=== PATIENT | female | born 1960 | race Caucasian/White ===

== ENCOUNTER 2018-01-08 12:10 | Emergency (ER) | payer OTHER, SELFPAY ==
[2018-01-08 12:20] VITALS: BP 154/73; PULSE 71; RESP 18; TEMP 36.4; O2SAT 97; BMI 32.0
--- NOTE | 2018-01-08 12:25 | XR_ITS ---
XR finger RT min 2V CLINICAL INDICATION: Pain following injury ITS.REASON: SMASHED INDEX FINGER ORDERING PHYSICIAN: Rock Hernandez PATIENT AGE: 57 years COMPARISON: None FINDINGS: No bony or joint abnormality. No fracture or dislocation. IMPRESSION: Negative right index finger
--- NOTE | 2018-01-08 12:47 | HMH.EDUTC ---
[facility] [place] Clinical Impression: Fingertip contusion Qualifiers: Encounter type: initial encounter Qualified Code(s): S60.00XA - Contusion of unspecified finger without damage to nail, initial encounter Subungual hematoma of finger of right hand Qualifiers: Encounter type: initial encounter Qualified Code(s): S60.10XA - Contusion of unspecified finger with damage to nail, initial encounter Disposition: Home, Self-Care Condition on Discharge: Good Instructions: DI for Contusion, DI for Subungual Hematoma, How To Perform RICE (Rest, Ice, Compress, Elevate) Additional Instructions: * use as tolerated. If pain, stop. If numbness, tingling, worsening pain or change in color, return immediately. * Rest * ice 15-20 mins 3-4 times a day * splint will help protect finger from further at work but is not necessary otherwise * Elevate as discussed as much as possible to help reduce swelling and therefore, pain * Ibuprofen every 6 hours as needed for pain and inflammation. If you need something more, you can take tylenol every 4 hours as needed as long as your primary care provider has told you it is ok to take both. Referrals: Harpreet Maldonado MD [Primary Care Provider] - (Follow up IMMEDIATELY for new or worsening symptoms, if you decide you want the procedure to allow blood to escape from under nail OR no noticeable improvement over the next 3 days) Time of Disposition: 13:15 Medical Decision Making Vital Signs: 01/08/18 12:20 Temperature 97.5 F L Temperature Source Temporal Artery Scan Pulse Rate [Right Radial] 71 Respiratory Rate 18 Blood Pressure [Right Arm] 154/73 Blood Pressure Mean [Right Arm] 100 02 Sat by Pulse Oximetry 97 Oxygen Delivery Method Room Air Orders (Tests/Meds): ORDERS Category Date Time Status Finger XR right minimum 2 views [XR finger RT min 2V] Exams 01/08/18 12:25 Taken Stat - Radiology Data #1 Image(s): Hand, Finger(s)/Thumb Image Reviewed: Yes I reviewed the patient's radiology image w/the ED provider Preliminary Findings: Normal/NAD Rvwd w/ ADONIS Saldaña MD - Alexi Inquiry Pt receiving controlled substance: No - Reevaluation(s) Time: 13:10 Reevaluation #1: Rvwd xray results. Discussed nail trepination to relieve pressure. Pt declined. [facility] [place] - General Stated complaint: Right Index Finger Pain Ao [id number] Time Seen by Provider: 01/08/18 12:25 Mode of Arrival: Family Vehicle Source of Information: Patient Limitations: No Limitations Description of Symptoms (Recalled from Triage Doc. by RN): PT STATES THAT HER RIGHT INDEX FINGER WAS SMASHED IN A DOOR LAST NIGHT. PT CAN MOVE AND BEND FINGER. HEENT Symptoms (Recalled from RN notes): No Resp Symptoms (Recalled from RN notes): No Skin Symptoms (Recalled from RN notes): No MS Symptoms (Recalled from RN notes): Yes (INJURED RIGHT INDEX FINGER) Functional Status (Recalled from RN notes): NA - History of Present Illness Provider Complaint: c/o pain in tip of right index finger. Wind blew car door closed on finger last night. Immediately iced. Iced several times last night. Woke up with finger swollen and still painful. Iced again and that helped swelling. Finger tip throbbing. Denies limited ROM, N/T or lack of feeling. Worried it could be fractured. - Related Data Home Medications Medication Instructions Recorded Confirmed Atenolol [Atenolol 25mg Tab] 25 mg PO DAILY 01/08/18 01/08/18 Levothyroxine Sodium 100 mg PO DAILY 01/08/18 01/08/18 [Levothyroxine 100mcg (0.1MG) Tab] Ropinirole HCl [Requip 0.25mg 0.25 mg PO DAILY 01/08/18 01/08/18 Tablet] Allergies Allergy/AdvReac Type Severity Reaction Status Date / Time dexamethasone [DEXAMETHASONE] Allergy Unknown Verified 01/08/18 12:27 triamcinolone [From KENALOG] Allergy Unknown Verified 01/08/18 12:27 - Worker's Comp Is this a Worker's Comp case?: No [facility] History I have reviewed the patient's past medical history: Yes Medical Hist
--- NOTE | 2018-01-08 12:51 | ED_ITS ---
[facility] – [place] Clinical Impression: Fingertip contusion Qualifiers: Encounter type: initial encounter Qualified Code(s): S60.00XA - Contusion of unspecified finger without damage to nail, initial encounter Subungual hematoma of finger of right hand Qualifiers: Encounter type: initial encounter Qualified Code(s): S60.10XA - Contusion of unspecified finger with damage to nail, initial encounter Disposition: Home, Self-Care Condition on Discharge: Good Instructions: DI for Contusion, DI for Subungual Hematoma, How To Perform RICE (Rest, Ice, Compress, Elevate) Additional Instructions: * use as tolerated. If pain, stop. If numbness, tingling, worsening pain or change in color, return immediately. * Rest * ice 15-20 mins 3-4 times a day * splint will help protect finger from further at work but is not necessary otherwise * Elevate as discussed as much as possible to help reduce swelling and therefore , pain * Ibuprofen every 6 hours as needed for pain and inflammation. If you need something more, you can take tylenol every 4 hours as needed as long as your primary care provider has told you it is ok to take both. Referrals: Harpreet Maldonado MD [Primary Care Provider] - (Follow up IMMEDIATELY for new or worsening symptoms, if you decide you want the procedure to allow blood to escape from under nail OR no noticeable improvement over the next 3 days) Time of Disposition: 13:15 Medical Decision Making Vital Signs: 01/08/18 12:20 Temperature 97.5 F L Temperature Source Temporal Artery Scan Pulse Rate [Right Radial] 71 Respiratory Rate 18 Blood Pressure [Right Arm] 154/73 Blood Pressure Mean [Right Arm] 100 02 Sat by Pulse Oximetry 97 Oxygen Delivery Method Room Air Orders (Tests/Meds): ORDERS Category Date Time Status Finger XR right minimum 2 views [XR finger RT min 2V] Exams 01/08/18 12:25 Taken Stat - Radiology Data #1 Image(s): Hand, Finger(s)/Thumb Image Reviewed: Yes I reviewed the patient's radiology image w/the ED provider Preliminary Findings: Normal/NAD Rvwd w/ ADONIS Saldaña MD - Alexi Inquiry Pt receiving controlled substance: No - Reevaluation(s) Time: 13:10 Reevaluation #1: Rvwd xray results. Discussed nail trepination to relieve pressure. Pt declined. [facility] [place] HPI - General Stated complaint: Right Index Finger Pain Ao [id number] Time Seen by Provider: 01/08/18 12:25 Mode of Arrival: Family Vehicle Source of Information: Patient Limitations: No Limitations Description of Symptoms (Recalled from Triage Doc. by RN): PT STATES THAT HER RIGHT INDEX FINGER WAS SMASHED IN A DOOR LAST NIGHT. PT CAN MOVE AND BEND FINGER. HEENT Symptoms (Recalled from RN notes): No Resp Symptoms (Recalled from RN notes): No Skin Symptoms (Recalled from RN notes): No MS Symptoms (Recalled from RN notes): Yes (INJURED RIGHT INDEX FINGER) Functional Status (Recalled from RN notes): NA - History of Present Illness Provider Complaint: c/o pain in tip of right index finger. Wind blew car door closed on finger last night. Immediately iced. Iced several times last night. Woke up with finger swollen and still painful. Iced again and that helped swelling. Finger tip throbbing. Denies limited ROM, N/T or lack of feeling. Worried it could be fractured. - Related Data Home Medications Medication Instructions Recorded Confirmed Atenolol [Atenolol 25mg Tab] 25 mg PO DAILY
[2018-01-08 13:17] VITALS: BP 136/77; PULSE 65; RESP 20; TEMP 36.7; O2SAT 99
== END 2018-01-08 13:17 | disposition home or self-care (01) ==
PROVIDERS: Emergency Provider Nurse Practitioner Family; Family Provider Family Medicine; PCP Family Medicine
DX: S60.121A Contusion of right index finger with damage to nail, initial encounter (principal); V49.88XA Car occupant (driver) (passenger) injured in other specified transport accidents, initial encounter; I10 Essential (primary) hypertension; E03.9 Hypothyroidism, unspecified; Z88.8 Allergy status to other drugs, medicaments and biological substances
CPT/HCPCS: 73140; 99202

== ENCOUNTER → 2018-02-19 16:58 | Outpatient (CLI) | payer OTHER, SELFPAY ==
--- NOTE | 2018-02-19 | MM_ITS ---
MM Dig screening mamm BI w/CAD CAD Screening ORDERING PHYSICIAN : Harpreet Maldonado MD PATIENT AGE: 57 years GENDER: Female INDICATION: 57-year-old no hormones no new complaints. Family history. Maternal aunt with breast cancer TECHNIQUE: Standard CC and MLO images were obtained. Axillary cc views both breast as well as CC nipple profile views included R2 CAD reviewed. COMPARISON: Previous mammograms: December FINDINGS: Moderate density breast with no dominant mass nor suspicious calcifications either breast. . No significant new findings either breast is stable architecture. Stable generous benign axillary lymph nodes RIGHT BREAST: A few calcifications right and left breast appear benign. Ongoing annual follow-up suggest LEFT BREAST:No new areas of concern =IMPRESSION: = Stable mammogram with no new areas of concern BI-RADS Category: 2 Benign Finding(s) RECOMMENDED FOLLOW-UP: 1YR - 1 YEAR FOLLOW-UP (A letter has been sent to the patient regarding results of the study.)
== END ==
PROVIDERS: PCP Family Medicine; Visit Provider Family Medicine
DX: Z12.31 Encounter for screening mammogram for malignant neoplasm of breast (principal)
CPT/HCPCS: 77067

== ENCOUNTER → 2018-09-04 15:42 | Outpatient (CLI) | payer OTHER, SELFPAY ==
--- NOTE | 2018-09-04 15:51 | XR_ITS ---
XR wrist LT min 3V HISTORY ITS.REASON: WRIST PAIN ORDERING PHYSICIAN: Desi Finley PATIENT AGE: 58 years Comparison: None FINDINGS: No fracture or dislocation. No lytic change. There is normal mineralization.. The joint spaces are well-preserved. No significant degenerative/arthritic changes. No erosive changes evident.. There is a sclerotic focus involving the capitate which measures 7 mm and may be due to a bone island. Otherwise negative. IMPRESSION: Nonspecific sclerotic focus of the capitate otherwise negative left wrist
--- NOTE | 2018-09-04 15:51 | XR_ITS ---
XR shoulder LT min 2V HISTORY: ITS.REASON: ACUTE PAIN OF LEFT SHOULDER ORDERING PHYSICIAN: Desi Finley PATIENT AGE: 58 years Comparison: FINDINGS: No fracture or dislocation. No lytic or blastic change. There is normal mineralization. The joint spaces are well-preserved. No significant degenerative/arthritic changes. No erosive changes evident. IMPRESSION: Negative, no acute finding
== END ==
PROVIDERS: PCP Family Medicine; Visit Provider Nurse Practitioner
DX: M25.512 Pain in left shoulder (principal); M25.532 Pain in left wrist
CPT/HCPCS: 73030; 73110

== ENCOUNTER → 2018-10-16 15:05 | Outpatient (CLI) | payer OTHER, SELFPAY ==
--- NOTE | 2018-10-16 15:10 | US_ITS ---
US thyroid HISTORY: ITS.REASON: ENLARGED THYROID,HYPOTHYROIDISM ORDERING PHYSICIAN: Harpreet Maldonado MD PATIENT AGE: 58 years Comparison: None FINDINGS: The right lobe is 4 x 1.1 x 1.3 cm. There is heterogeneous echogenicity within the right lobe. Nodular A: 4 mm isoechoic nodule superiorly. Nodule B: Mixed echogenic nodule mid pole region is 7 mm. Nodule C: Hypoechoic nodule 7 mm lower pole Nodule D: 5 x 3 mm hypoechoic nodule lower pole The left lobe is 3.7 x 1.2 x 1.3 cm. Nodule A: Heterogeneous nodule upper pole at 15 x 11 mm. The margins are not well-defined. Nodule B: 9 mm heterogeneous nodule mid polar region IMPRESSION: Heterogeneous echogenicity of the thyroid gland with small bilateral nodules . Consider 6 month follow-up to confirm stability
== END ==
PROVIDERS: PCP Family Medicine; Visit Provider Family Medicine
DX: E03.9 Hypothyroidism, unspecified (principal); E04.9 Nontoxic goiter, unspecified
CPT/HCPCS: 76536

== ENCOUNTER → 2019-02-22 10:44 | Outpatient (CLI) | payer OTHER, SELFPAY ==
--- NOTE | 2019-02-22 10:46 | MM_ITS ---
MM Dig screening mamm BI w/CAD ORDERING PHYSICIAN : Harpreet Maldonado MD PATIENT AGE: 58 years GENDER: Female COMPARISON: September & December 2016 & February 2018 INDICATION: Routine screening mammogram. No hormones. No new complaints. Family history. Maternal aunt with breast cancer TECHNIQUE: Standard CC and MLO images were obtained. R2 CAD reviewed. Additional axillary cc as well as CC nipple profile views bilaterally. FINDINGS: Moderately dense breast pattern bilaterally with only mild asymmetry. Prior films are helpful and supportive stability with no new areas of significant concern. RIGHT BREAST:No new areas significant concern Small focal asymmetric area of density medial right breast cc view appears stable since studies dating back to 2013, and dissipates on the additional cc views of right breast. A questionable subtle small area of nodularity at the deep breast also appears stable LEFT BREAST: No new areas of significant concern Be slightly heterogeneous breast pattern unchanged with parenchymal elements most evident towards upper-outer quadrant =====IMPRESSION: Stable bilateral mammogram... With no new areas of significant concern. Stable mild asymmetry. Bilateral follow-up in one year recommended. BI-RADS Category: 2 Benign Finding(s) RECOMMENDED FOLLOW-UP: 1YR 1 YEAR FOLLOW-UP (A letter has been sent to the patient regarding results of the study.)
== END ==
PROVIDERS: PCP Family Medicine; Visit Provider Family Medicine
DX: Z12.31 Encounter for screening mammogram for malignant neoplasm of breast (principal)
CPT/HCPCS: 77067

== ENCOUNTER → 2019-03-02 09:07 | Outpatient (CLI) | payer OTHER, SELFPAY ==
--- NOTE | 2019-03-02 09:10 | US_ITS ---
US abdomen limited History:Abdominal pain Ordering Physician:Cecy Hawkins Patient Age: 58 years Comparison:None Findings: Pancreas:The pancreas is poorly demonstrated due to overlying bowel gas. Liver:Unremarkable. No obvious mass or abnormal fluid collection. No ductal dilatation Right Kidney:Unremarkable. Normal size and echogenicity. No hydronephrosis Gallbladder:There are small stones present in the gallbladder. No gallbladder wall thickening, pericholecystic fluid, or biliary dilatation. The common bile duct measures 4 mm. IMPRESSION: Cholelithiasis
== END ==
PROVIDERS: PCP Family Medicine; Visit Provider Nurse Practitioner Family
DX: R50.9 Fever, unspecified (principal); R10.9 Unspecified abdominal pain; R11.0 Nausea; K80.20 Calculus of gallbladder without cholecystitis without obstruction
CPT/HCPCS: 76705

== ENCOUNTER → 2019-05-27 15:17 | Outpatient (CLI) | payer OTHER, SELFPAY ==
--- NOTE | 2019-05-27 15:19 | US_ITS ---
US thyroid HISTORY: Follow-up thyroid nodules ITS.REASON: F/U HYPOTHYROIDISM ORDERING PHYSICIAN: Harpreet Maldonado MD PATIENT AGE: 59 years Comparison: 10/16/2018 FINDINGS: The isthmus is thickened at 5 mm. There is diffuse heterogeneous echogenicity of both lobes of the thyroid gland. The right lobe is 4.5 x 1.5 x 1.6 cm with ill-defined areas of nodularity. It is difficult to define a definite discrete nodule on the right. Overall there is not significant change compared to the previous exam. The left lobe is 3.9 x 1.7 x 1.5 cm also showing diffuse heterogeneous echogenicity as before with a multinodular configuration. No new nodules are evident. No suspicious nodules apparent. IMPRESSION: Multinodular goiter unchanged
== END ==
PROVIDERS: PCP Family Medicine; Visit Provider Family Medicine
DX: Z09 Encounter for follow-up examination after completed treatment for conditions other than malignant neoplasm (principal); E03.9 Hypothyroidism, unspecified
CPT/HCPCS: 76536

== ENCOUNTER → 2019-11-18 09:50 | Outpatient (CLI) | payer OTHER, SELFPAY ==
--- NOTE | 2019-11-18 | CA_ITS ---
APPROVED REPORT Exam: Pharmacologic Technologist: Jaylene Jiang Ht: 5 ft 2 in Wt: 180 lbs BSA: 1.83 m2 HR: 78 bpm Rhythm: NSR Indications: SOB Medical History Medications: Atenolol,,,,, Asa,,,,, ReQUIP,,,,, LexOTHYROXINE,,,,, OmeprazLE,,,,, Allergies: Dexamethasone, Triamcinolone Cardiac Risk Factors: HTN, FHX of CAD Stress Test Details Test: LEXISCAN HR Resting HR: 86 bpm Max Heart Rate (APMHR): 162 bpm Max HR Achieved: 135 bpm Target HR (85% APMHR): 137 bpm % of APMHR: 83 Recovery HR: 115 bpm BP Resting BP: 183/76 mmHg Max BP: 196/77 mmHg Recovery BP: 179.0/84.0 mmHg ECG Resting ECG: Sinus rhythm Clinical Exercise duration: 04:01 min Highest Stage Achieved: Exercise capacity: 1.0 METs Stress ECG Conclusion Lexiscan portion completed. Symptoms: SOB, Nausea during infusion which resolved during recovery. Patient had c/o CP in recovery resolved within a few seconds. Patient had a hypertensive response in which nurse practationer Arlette Merino reccomended her to take her BP meds as prescribed. There was the occasional PVC. Less than 1.5mm ST depression Electronically signed by : Tito Hernandez, 11/19/2019 12:34:49
--- NOTE | 2019-11-18 09:55 | CA_ITS ---
APPROVED REPORT EXAM: Comprehensive 2D, Doppler, and color-flow Echocardiogram [employer] Estimator: Mavis Roy CRT Ht: 5 ft 2 in Wt: 180lbs BSA: 1.83 BP: 125/64 mmHg Indications: Chest Pain, Murmur, Obesity, Hypertension/HDD 2D Dimensions LVOT 1.73 cm (M/F) 1.5-2.5 M-Mode Dimensions RVDd 2.80 cm (0.9-2.6) LVDd 5.14 cm (3.5-5.7) LVDs 3.70 cm (3.5-5.7) IVSd 0.76 cm (0.6-1.1) PWd 0.59 cm (0.6-1.1) EF (Teich) 53.90% FS 28.00% EDV (Teich) 126.10 mL ESV (Teich) 58.10 mL LV Diastology E/A Ratio 0.58 Mitral Valve MV A Velocity 70.00 (40-130 cm/s) Left Ventricle Left atrium is mildly enlarged, left ventricle is normal size, mild concentric left ventricular hypertrophy, visually estimated ejection fraction 55% with no regional wall motion abnormality. Grade 1 diastolic dysfunction seen without tissue Doppler evidence of raise left atrial pressure. Right Ventricle Right atrium and right ventricle mildly enlarged with normal contractility. Aortic Valve Aortic valve is minimally thickened and fibrosed. There is no aortic stenosis aortic insufficiency. Mitral Valve Mitral valve is grossly normal, there is mild mitral regurgitation. Tricuspid Valve Tricuspid valve is grossly normal, there is mild tricuspid regurgitation. Tricuspid regurgitation jet velocity is inadequate for calculation of the right ventricular systolic pressure. Pulmonic Valve Pulmonic valve is poorly visualized. Great Vessels Aortic root is normal size. Pericardium No significant pericardial effusion noted. Conclusion 1. Biatrial enlargement, normal left ventricular size, mild concentric left ventricular hypertrophy, visually estimated ejection fraction 55% with no regional wall motion abnormality, grade 1 diastolic dysfunction seen without tissue Doppler evidence of raise left atrial pressure. 2. Mildly enlarged right ventricle with normal contractility. 3. Mild mitral and tricuspid regurgitation. 4. No significant pericardial effusion noted. Electronically signed by : Tito Hernandez, 11/19/2019 13:52:07
--- NOTE | 2019-11-18 09:56 | NM_ITS ---
APPROVED REPORT Exam: Nuclear Stress Test Indication: chest pain, short of breath, fatique Stress Tech: Jaylene YOUNG Tech:Zakia DaltonTRE RT(R)(N) Ht: 5 ft 2 in Wt: 180 lbs Bra Size: 38 C HR: 78 bpm BP: 183/76 mmHg BSA: 1.83 m2 BMI: 32.9 History: chest pain, short of breath, fatique Procedure: Patient received a 0.4 mg of intravenous Lexiscan, resting heart rate 78 bpm, resting blood pressure 183/76 mmHg, with Lexiscan maximum heart rate achived was 134 bpm which is Less than 85 % of the maximum predicted heart rate and blood pressure was 196/77 mmHg. Electrocardiogram Resting electrocardiogram shows sinus rhythm, with Lexiscan there is less than 1.[address] segment depression noted from the baseline EKG. The EKG portion of the Lexiscan Myoview is nondiagnostic. Cardiac Stress and Resting SPECT Images: Cardiac Stress and Resting SPECT images were obtained using technetium 99m Myoview 32.8 mCi stress and 10.55 mCi at rest. Gated SPECT for analysis of segmental wall motion and calculation of the ejection fraction also done. Cardiac stress and resting SPECT images show uniform myocardial activity without segmental perfusion abnormality, computer derived ejection fraction is over 65% with no regional wall motion abnormality, right ventricle is normal size and contractility. Conclusion: 1. The EKG portion of the Lexiscan Myoview is nondiagnostic. 2. No scintigraphic evidence of reversible ischemia seen, computer derived ejection fraction is over 65% with no regional wall motion abnormality, right ventricle is normal size and contractility. 3. Normal Lexiscan Myoview study. Electronically signed by : Tito Hernandez, 11/19/2019 12:38:07
--- NOTE | 2019-11-18 12:58 | HMH.ITSHM ---
Current Home Medications as stated by this patient Shruthi Nelson True or patient services representative. [] atenolol levothyroxin requip omeprazole hydrochlorot asa
== END ==
PROVIDERS: PCP Family Medicine; Visit Provider Family Medicine
DX: I20.8 Other forms of angina pectoris (principal); R01.1 Cardiac murmur, unspecified; E78.00 Pure hypercholesterolemia, unspecified; I10 Essential (primary) hypertension; Z82.49 Family history of ischemic heart disease and other diseases of the circulatory system
CPT/HCPCS: 78452; 93017; 93306; A9502; J2785

== ENCOUNTER → 2020-03-17 08:51 | Outpatient (CLI) | payer OTHER, SELFPAY ==
--- NOTE | 2020-03-17 08:56 | MM_ITS ---
PROCEDURE: MM DIG SCREENING MAMM BI W/CAD DIGITAL BREAST TOMOSYNTHESIS INCLUDED Patient Age:59Y CLINICAL INDICATION: SCREENING no hormones. No new complaints.. Family history. Maternal aunt with breast cancer. COMPARISON: [facility] D[facility] MAMM-SCREEN [facility] from 09/03/2013 [facility] D[facility] MAMM-SCREEN [facility] from 09/30/2014 [facility] D[facility] MAMM-SCREEN [facility] from 12/01/2015 [facility] MAMM-SCREEN [facility] W/CAD from 12/27/2016 [facility] MM Dig screening mamm BI w/CAD from 02/19/2018 [facility] MM Dig screening mamm BI w/CAD from 02/22/2019 TECHNIQUE: Standard CC and MLO images were obtained. R2 CAD reviewed. Bilateral digital breast tomosynthesis included. Additional CC nipple profile views included bilateral FINDINGS: . moderate residual fibroglandular elements of scattered throughout both breast. No significant new findings. No dominant or suspicious mass, no suspicious calcification.. Mild asymmetry appears similar to previous studies. Stable benign calcifications right breast IMPRESSION: Stable bilateral mammogram. No new areas of significant concern moderate breast density. Bilateral follow-up 1 year recommended BI-RAD Category: 2 Benign Finding(s) FOLLOW-UP: 1YR 1 Year Follow-up (A letter has been sent to the patient regarding results of the study.) Dictated by: Connor Condon MD 03/21/2020 09:46 Electronically signed by Connor Condon MD in [place] 03/21/2020 09:46
== END ==
PROVIDERS: PCP Family Medicine; Visit Provider Family Medicine
DX: Z12.31 Encounter for screening mammogram for malignant neoplasm of breast (principal)
CPT/HCPCS: 77063; 77067

== ENCOUNTER 2020-06-12 22:00 | Observation (INO) | payer OTHER, SELFPAY ==
[2020-06-12 21:02] VITALS: BP 170/75; PULSE 76; RESP 18; O2SAT 98; BMI 32.9
--- NOTE | 2020-06-12 21:51 | ECG_ITS ---
APPROVED REPORT Exam: Resting ECG HR:75 bpm ECG Measurements Heart Rate 75 AXES NC 154 P 33 QRSd 86 QRS 30 QT 368 T 57 QTc 410 <Conclusion> Normal sinus rhythm Normal ECG Electronically signed by : Nicholas Garcia, 06/13/2020 13:49:13
--- NOTE | 2020-06-12 22:00 | PC.NURSE ---
NIH scale performed at bedside by MD and nurse. pt was unable to communicate at baseline at this time, pt smile was unequal, drift noted in the left upper extremity and lower extremity and pt complained of numbness sensation in lower extremity. MD and nurse gave pt a NIH score of 5 at this time.
--- NOTE | 2020-06-12 22:00 | PC.NURSE ---
pt arrived via POV at 2200. nurses station called by registration to help a pt out of the car. on initial assessment pt was being assisted into a wheelchair by and holding her chest. pt brought back to room 4. pt was alert and oriented but having difficultly speaking with stridor present. pt exposed for EKG, vitals obtained and blood glucose obtained. 111 at this time.
--- NOTE | 2020-06-12 22:01 | PC.NURSE ---
stroke alert called on pt. pt transported via stretcher by this nurse and DRU [facility]ital
--- NOTE | 2020-06-12 22:04 | PC.NURSE ---
pt arrived to CT scanner
--- NOTE | 2020-06-12 22:15 | PC.NURSE ---
MD at bedside stated he wants to keep pt and doesnt want to give aspirin due to pt having having difficulty speaking. when asked pt about sending pt out to transfer to a higher acuity facility MD stated he wanted to keep pt here.
[2020-06-12 22:25] VITALS: BP 170/76; PULSE 74; RESP 16; O2SAT 93
--- NOTE | 2020-06-12 22:39 | CT_ITS ---
PROCEDURE: CT HEAD/BRAIN WO CON CLINICAL INDICATION: stroke alert Altered mental status, altered level of consciousness, confusion, disorientation, nonresponsive, COMPARISON: CT HEAD/BRAIN WO CON from 09/02/2019 TECHNIQUE: Axial images obtained. All CT scans at the facility use one or more dose reduction, viz: automated exposure control, ma/kV adjustment per patient size (including targeted exams where dose is matched to indication, i.e. head), or iterative reconstruction technique. FINDINGS: No midline shift, mass effect, intracranial hemorrhage, hydrocephalus, or extra-axial fluid collection is evident. The calvarium has an unremarkable appearance. No mastoid effusion. Mucosal thickening involves the maxillary sinuses. IMPRESSION: No acute intracranial finding Dictated by: Yonatan Sneed MD 06/13/2020 06:53 Electronically signed by Yonatan Sneed MD in [place] 06/13/2020 06:53
[2020-06-12 22:43] LABS: Basophils # 0.1 K/mm3 (0-0.2); Basophils % 0.6 % (0.1-2.0); Eosinophils # 0.4 K/mm3 (0.0-0.4); Hematocrit 34.6 % (37.0-47.0); Hemoglobin 11.9 g/dL (12.2-16.2); Lymphocytes # 2.6 K/mm3 (0.7-4.5); Lymphocytes % 26.7 % (10-50); Mean Corpuscular HGB Conc 34.5 g/dL (31.8-35.4); Mean Corpuscular Hemoglobin 32.3 pg (27.0-31.2); Mean Corpuscular Volume 93.6 fl (81-99); Mean Platelet Volume 7.2 fl (7.4-10.4); Monocytes # 0.6 K/mm3 (0.1-1.0); Monocytes % 6.2 % (1.7-9.3); Neutrophils # 6.1 K/mm3 (1.8-7.8); Neutrophils % 62.5 % (37.0-80.0); Platelet Count 399 K/mm3 (142-424); Red Blood Count 3.69 M/mm3 (4.20-5.40); Red Cell Distribution Width 13.7 % (11.5-17.5); White Blood Count 9.7 K/mm3 (4.8-10.8)
--- NOTE | 2020-06-12 22:43 | XR_ITS ---
PROCEDURE: XR CHEST PORTABLE CLINICAL HISTORY: chest pain COMPARISON: XR CHEST 2V from 11/08/2019 FINDINGS: There is mild cardiomegaly without failure. Nodularity is noted in the right upper lobe overlying the 2nd rib anteriorly in the left lung base. No acute bony abnormalities. IMPRESSION: Cardiomegaly with possible right upper and left lower lobe nodules. Consider upright PA and lateral chest for further evaluation Dictated by: Yonatan Sneed MD 06/12/2020 23:11 Electronically signed by Yonatan Sneed MD in [place] 06/12/2020 23:11
[2020-06-12 22:55] VITALS: BP 170/78; PULSE 75; RESP 16; O2SAT 96
[2020-06-12 22:55] LABS: Anion Gap 12.8 mEq/L (5-15); Blood Urea Nitrogen 17 mg/dl (7-17); Calcium 9.3 mg/dl (8.4-10.2); Carbon Dioxide 28 mmol/L (22.0-30.0); Chloride 98 mmol/L (98-107); Creatinine Clearance Estimated 87 mL/min (50-200); Estimated Glomerular Filt Rate 64 ml/min (>60); GFR (African American) 78 ML/MIN (>60); Glucose 112 mg/dl (74-100); Potassium 3.8 mmoL/L (3.5-5.1); Sodium 135 mmol/L (136-145)
--- NOTE | 2020-06-12 23:01 | PC.NURSE ---
reassessed pt condition at this time. pt still has the gazed look in her eyes. pt no longer has stidor when breathing and is now breathing at a regular rate and normal depth. pt stated she felt a little better at this time but is still not back to baseline according to her . pt is still slow to move and speak and doesnt consistently follow you with her gaze when communicating.
[2020-06-12 23:02] LABS: Albumin/Globulin Ratio 1.3 (1.1-1.8); Alkaline Phosphatase 86 U/L (38-126); Aspartate Amino Transferase 26 U/L (14-36); Bilirubin,Total 0.4 mg/dl (0.2-1.3); Globulin 3.2 g/dL (1.3-3.2); Total Protein,Serum 7.2 g/dl (6.3-8.2); Troponin I < 0.01 ng/ml (0.00-0.034)
[2020-06-12 23:07] LABS: Alanine Aminotransferase 14 U/L (12-78)
[2020-06-12 23:07] LABS: Microscopic, Urine URINE MICROSCOPIC (MICROSCOPIC)
[2020-06-12 23:10] LABS: Appearance,Urine CLEAR (Clear); Bilirubin,Urine Negative (Negative); Blood, Urine TRACE-I (Negative); Color,Urine YELLOW (Yellow); Glucose,Urine (UA) Negative (Negative); Ketones,Urine Negative (Negative); Leukocyte Esterase,Urine Negative (Negative); Nitrate,Urine Negative (Negative); PH,Urine 7.5 (5.0-8.5); Protein,Urine Negative (Negative); Urobilinogen,Urine 0.2 EU/dl (0.2)
[2020-06-12 23:15] LABS: Bacteria,Urine Trace /lpf; Squamous Epithelial Cell,Urine Occasional #/hpf (0-5); WBC,Urine Occasional #/hpf (0-3)
[2020-06-12 23:22] LABS: Barbiturates Screen,Urine Negative ng/ml (<200); Benzodiazepines Screen,Urine Negative ng/ml (<200)
[2020-06-12 23:23] LABS: Amphetamine/Metha Screen,Urine Negative ng/ml (<1000)
[2020-06-12 23:24] LABS: Cannabinoid Screen,Urine Negative ng/ml (<50); Methadone Screen,Urine Negative ng/ml (<300)
[2020-06-12 23:25] VITALS: BP 150/51; PULSE 73; RESP 15; O2SAT 94
[2020-06-12 23:25] LABS: Cocaine Screen,Urine Negative ng/ml (<300); Opiate Screen,Urine Negative ng/ml (<300)
[2020-06-12 23:26] LABS: Phencyclidine Screen,Urine Negative ng/ml (<25)
[2020-06-13] VITALS (29 sets, daily range): BP systolic 116–169; BP diastolic 47–76; PULSE 50–80; RESP 12–18; TEMP 36.5–36.9; O2SAT 93–100; BMI 32.9; BMI 33.1
--- NOTE | 2020-06-13 | IR_ITS ---
APPROVED REPORT Patient Location: Inpatient PROCEDURES Left heart catheterization Left ventriculogram Selective coronary angiogram Drug-eluting stent deployment to the proximal LAD Drug-eluting stent deployment to the ostial proximal left main artery INDICATION Coronary artery disease, Unstable angina, Informed consent was obtained prior to the procedure. COMPLICATIONS NONE Estimated Blood Loss: LESS THAN 10 ML TECHNIQUE One percent lidocaine used to anesthetize the right anterior aspect of the wrist. The right radial artery was accessed via the Seldinger technique. A 6 [place]an sheath was placed in the right radial artery. 2.5 mg of verapamil, 800 mcg of nitroglycerin, 1mg Lidocaine and 5000 U Heparin were given through the arterial sheath. The trap catheter was also used to perform right coronary artery selective coronary angiography. A 6 [place] JL 3 guide catheter was used to intubate the left main artery due to the short aorta. This catheter entered the ventricle therefore left ventriculogram was performed as well as left heart catheterization with a JL 3 guide catheter. The catheter was pulled out of the left ventricle and into the left main artery where there was immediate dampening upon entry. Coronary angiography was performed which demonstrated a severe proximal LAD stenosis. Therapeutic heparin was administered giving an ACT of 360 seconds. A Choice PT extra-support wire was placed distally in the LAD and a 2.5 x 26 mm resolute pat stent was placed in the proximal LAD deployed at 16 nadir. This reduced the stenosis to 0%. There was significant dampening and repeat angiography demonstrated a severe ostial stenosis that appeared to be 50%. More importantly a 6 [place]an guide catheter caused significant obturation and profound EKG abnormalities will present. Because of this a 3 mm x 12 mm resolute pat stent was deployed at 24 nadir in the ostial proximal left main artery. The balloon was brought back into the left coronary cusp into the proximal ostial portion of the stent and then postdilated at 24 nadir. This allowed the guide catheter to receipt back into the left main artery with no dampening of pressure. Patient's angina pectoris resolved and the waveform normalized. Repeat angiography demonstrated spasm of the ramus intermedius which responded well to nitroglycerin. MIR-3 flow was present down the left main artery LAD ramus intermedius and circumflex artery before and after the procedure. At the end of the procedure the apparatus was removed the sheath was removed good hemostasis was achieved using TR banding patient was transferred to the postop holding area in stable condition ANGIOGRAPHIC RESULTS The left main artery Has an ostial 50% stenosis The left anterior descending artery Has a severe proximal greater than 70% stenosis The circumflex artery Gives rise to a moderate size ramus intermedius which has mild proximal 10 to 20% stenosis. The circumflex artery itself has mild luminal irregularities approximately 10% severity The right coronary artery Is a dominant vessel and has proximal to mid vessel 20 to 30% stenoses as well as a 20% stenosis in the proximal large posterior lateral branch The PINTO ventriculogram reveals Normal 65% The left ventricular end-diastolic pressure 15 mmHg IMPRESSION Coronary artery disease as described above Successful stenting of the ostial left main artery severe disease reduced to 0% with one drug-eluting stent Successful stenting of the proximal LAD severe disease reduced to 0% with one drug-eluting stent Normal ejection fraction Mildly elevated LVEDP PLAN 1. Brilinta 90 mg twice daily plus aspirin 81 mg daily 2. LDL less than 55 3.
--- NOTE | 2020-06-13 01:50 | PC.NURSE ---
triage time changed to 2201 but unable to edit time in entry. original vitals obtained at 2201
[2020-06-13 02:43] LABS: Troponin I < 0.01 ng/ml (0.00-0.034)
--- NOTE | 2020-06-13 03:11 | HMH.EDCP ---
ED Disposition Clinical Impression: Atypical chest pain Disposition: Admitted as Observation Condition on Discharge: Good Instructions: DI for Atypical Chest Pain Additional Instructions: Spoke to Dr. Zazueta for admission for this patient Referrals: Harpreet Maldonado MD [Primary Care Provider] - - Critical Care Critical Care Time: No Attestation: On 06/12/20, the high probability of a clinically significant, sudden or life threatening deterioration of the following system(s) required my full and direct attention, intervention and personal management. The time I documented below is in addition to time spent performing reported procedures but includes the following listed in this critical care notation. Medical Decision Making - Medical Records Medical records reviewed: Yes: I reviewed the patient's medical records. - Alexi Inquiry Pt receiving controlled substance: No Vital Signs: 06/12/20 21:02 06/12/20 22:25 06/12/20 22:55 Pulse Rate [Radial] 76 74 75 Respiratory Rate 18 16 16 Blood Pressure [Right Arm] 170/75 H 170/76 H 170/78 H Blood Pressure Mean [Right Arm] 106 107 108 Blood Pressure Source [Right Arm] Automatic Cuff Automatic Cuff Automatic Cuff Blood Pressure Position [Right Arm] Sitting Sitting Sitting 02 Sat by Pulse Oximetry 98 93 L 96 Oxygen Delivery Method Room Air Room Air 06/12/20 23:25 06/13/20 00:00 06/13/20 00:30 Pulse Rate [Radial] 73 70 72 Respiratory Rate 15 15 16 Blood Pressure [Right Arm] 150/51 H 135/55 L 131/58 L Blood Pressure Mean [Right Arm] 84 81 82 Blood Pressure Source [Right Arm] Automatic Cuff Automatic Cuff Automatic Cuff Blood Pressure Position [Right Arm] Sitting Sitting Sitting 02 Sat by Pulse Oximetry 94 L 93 L 93 L Oxygen Delivery Method Room Air Room Air 06/13/20 01:00 06/13/20 01:30 06/13/20 02:00 Pulse Rate [Radial] 69 64 64 Respiratory Rate 15 15 16 Blood Pressure [Right Arm] 127/56 L 129/53 L 124/52 L Blood Pressure Mean [Right Arm] 79 78 76 Blood Pressure Source [Right Arm] Automatic Cuff Automatic Cuff Automatic Cuff Blood Pressure Position [Right Arm] Sitting Sitting Sitting 02 Sat by Pulse Oximetry 93 L 94 L 95 Oxygen Delivery Method Room Air Room Air - Lab Data Lab results reviewed: Yes: I reviewed the patient's lab results. Lab Results 06/12/20 22:03: Urine Color Yellow, Urine Appearance Clear, Urine pH 7.5, Ur Specific [place] 1.010, Urine Protein Negative, Urine Glucose (UA) Negative, Urine Ketones Negative, Urine Blood Trace-i, Urine Nitrate Negative, Urine Bilirubin Negative, Urine Urobilinogen 0.2, Ur Leukocyte Esterase Negative, Urine WBC Occasional, Ur Squamous Epith Cells Occasional, Urine Bacteria Trace 06/12/20 22:03: Urine Opiates Screen Negative, Urine Methadone Screen Negative, Ur Barbituates Screen Negative, Ur Phencyclidine Scrn Negative, Ur Amphetamines Screen Negative, U Benzodiazepines Scrn Negative, Urine Cocaine Screen Negative, U Marijuana (THC) Screen Negative 06/12/20 22:25: WBC 9.7, RBC 3.69 L, Hgb 11.9 L, Hct 34.6 L, MCV 93.6, MCH 32.3 H, MCHC 34.5, RDW 13.7, Plt Count 399, MPV 7.2 L, Neut % (Auto) 62.5, Lymph % (Auto) 26.7, [place] % (Auto) 6.2, Eos % (Auto) 4.0, Baso % (Auto) 0.6, Neut # (Auto) 6.1, Lymph # (Auto) 2.6, [place] # (Auto) 0.6, Eos # (Auto) 0.4, Baso # (Auto) 0.1 06/12/20 22:25: Sodium 135 L, Potassium 3.8, Chloride 98, Carbon Dioxide 28, Anion Gap 12.8, BUN 17, Creatinine 0.90, Estimated Creat Clear 87, Estimated GFR 64, Est GFR ( Amer) 78, Glucose 112 H, Calcium 9.3, Total Bilirubin 0.4, AST 26, ALT 14, Alkaline Phosphatase 86, Troponin I < 0.01, Total Protein 7.2, Albumin 4.0, Globulin 3.2, Albumin/Globulin Ratio 1.3 06/13/20 02:05: Troponin I < 0.01 Result diagrams: 06/12/20 22:25 06/12/20 22:25 Orders (Tests/Meds): ORDERS Category Date Time Status CT head/brain wo con Stat Cat Scan 06/12/20 22:39 Taken Troponin I Q3H Lab 06/13/20 04:45 Ordered - Radiology Data #1 Image(s)
--- NOTE | 2020-06-13 04:01 | PC.NURSE ---
attempted to call report to [facility] unable to finish report due to code 500 brought in by EMS
--- NOTE | 2020-06-13 04:40 | PC.NURSE ---
called report to DR[facility] S[facility]
--- NOTE | 2020-06-13 04:48 | PC.NURSE ---
PT ARRIVED TO THE FLOOR VIA STRETCHER FROM ED AT 0448.
[2020-06-13 05:35] LABS: Basophils % 0.4 % (0.1-2.0); Eosinophils # 0.4 K/mm3 (0.0-0.4); Eosinophils % 4.5 % (0.1-12.0); Hematocrit 32.3 % (37.0-47.0); Hemoglobin 11.2 g/dL (12.2-16.2); Lymphocytes # 2.5 K/mm3 (0.7-4.5); Lymphocytes % 26.9 % (10-50); Mean Corpuscular HGB Conc 34.8 g/dL (31.8-35.4); Mean Corpuscular Hemoglobin 31.8 pg (27.0-31.2); Mean Corpuscular Volume 91.5 fl (81-99); Mean Platelet Volume 7.4 fl (7.4-10.4); Monocytes # 0.6 K/mm3 (0.1-1.0); Monocytes % 6.6 % (1.7-9.3); Neutrophils # 5.8 K/mm3 (1.8-7.8); Neutrophils % 61.7 % (37.0-80.0); Platelet Count 360 K/mm3 (142-424); Red Blood Count 3.53 M/mm3 (4.20-5.40); Red Cell Distribution Width 13.9 % (11.5-17.5); White Blood Count 9.4 K/mm3 (4.8-10.8)
--- NOTE | 2020-06-13 05:41 | PC.NURSE ---
Pt reports that she takes a medication for HTN that is not listed in her list of home meds, but she cannot remember the name of it.
[2020-06-13 05:43] LABS: Chloride 102 mmol/L (98-107); Sodium 138 mmol/L (136-145)
[2020-06-13 05:44] LABS: Potassium 3.6 mmoL/L (3.5-5.1)
[2020-06-13 05:46] LABS: Alanine Aminotransferase 12 U/L (12-78); Albumin Level 3.4 g/dl (3.5-5.0); Albumin/Globulin Ratio 1.3 (1.1-1.8); Alkaline Phosphatase 71 U/L (38-126); Anion Gap 12.6 mEq/L (5-15); Aspartate Amino Transferase 17 U/L (14-36); Bilirubin,Total 0.3 mg/dl (0.2-1.3); Blood Urea Nitrogen 21 mg/dl (7-17); Carbon Dioxide 27 mmol/L (22.0-30.0); Creatinine Clearance Estimated 112 mL/min (50-200); Estimated Glomerular Filt Rate 86 ml/min (>60); GFR (African American) 104 ML/MIN (>60); Globulin 2.6 g/dL (1.3-3.2)
[2020-06-13 05:47] LABS: Calcium 8.9 mg/dl (8.4-10.2); Glucose 122 mg/dl (74-100)
[2020-06-13 05:53] LABS: Troponin I < 0.01 ng/ml (0.00-0.034)
--- NOTE | 2020-06-13 05:58 | PC.NURSE ---
Moris WALTERS NOTIFIED OF CONSULTED.
--- NOTE | 2020-06-13 07:12 | HMH.CNCARD ---
History of Present Illness Consult date: 06/13/20 Requesting physician: Harpreet Maldonado Consult reason: chest pain Chief complaint: chest pain Additional Medical History:: 1. HTN 2. Chest pain A. Echo, 11/2019, 1. Biatrial enlargement, normal left ventricular size, mild concentric left ventricular hypertrophy, visually estimated ejection fraction 55% with no regional wall motion abnormality, grade 1 diastolic dysfunction seen without tissue Doppler evidence of raise left atrial pressure. 2. Mildly enlarged right ventricle with normal contractility. 3. Mild mitral and tricuspid regurgitation. 4. No significant pericardial effusion noted. B. Lexiscan myoview, 11/2019, No ischemia with LVEF of 65% 3. Hypothyroidism, on replacement 4. History of syncope A. positive Tilt table test, 2015 with near syncope, elevated HR of 145 bpm with drop in systolic BP into the low 60's mm Hg B. MRI of head, 2015, negative for acute process 5. Family history of heart disease in her father and brother History of present illness: 60-year-old white female with history of hypertension hypothyroidism presented to the emergency department by private vehicle for evaluation of chest pain that began last evening around 9 PM. Patient was getting ready for bed when she developed sensation of chest tightness without radiation. Symptoms continued for more than 30 minutes and patient's encouraged her to come to the emergency department for evaluation. She was given 2 baby aspirin in route to the hospital without significant improvement. Upon arrival to the ER patient was noted to have an unusual gaze and slow to respond, therefore stroke alert was called. Patient did have a CT of the head that showed no acute process. EKG showed sinus rhythm with no acute ST segment changes. After returning from the CT scanner the patient's responses improved and evaluation by the ER physician did not support a diagnosis of acute stroke. Initial troponin was normal but due to the patient's complaint of chest pain tightness she was kept overnight for observation. Serial troponins have returned normal x3. Patient continues to complain of chest tightness rated as a 3 out of 10 this morning with last night being a 10 out of 10. Cardiology consulted for evaluation and recommendations. [facility] History Medical History: Reports:: Hypertension Denies:: Cancer, Diabetes Mellitus Type 1, Diabetes Mellitus Type 2, MRSA *Have you ever received a pneumonia vaccine?: No *Have you received a flu vaccine this season?: Yes Other Medical History: Reports: Hypothyroidism, Other Other Surgeries: Yes: , Hysterectomy-Partial, Other Amputation: No Fractures: No - *Social History Smoking Status: Never smoker Alcohol Intake: never *Occupational Status:: employed Housing: house Household Members: spouse *Travel in the last 8 weeks: None Family Hx:: Non-contributory Meds Home Medications Medication Instructions Recorded Confirmed Type Levothyroxine Sodium 100 mg PO DAILY 01/08/18 06/13/20 History [Levothyroxine 100mcg (0.1MG) Tab] Ropinirole HCl [Requip 0.25mg 0.25 mg PO DAILY 01/08/18 06/13/20 History Tablet] atenoloL [Atenolol 25mg Tab] 50 mg PO DAILY 01/08/18 06/13/20 History Omeprazole 20 mg PO DAILY 01/20/20 06/13/20 History hydroCHLOROthiazide [HCTZ 25mg 25 mg PO DAILY 01/20/20 06/13/20 History tab] Allergies Allergy/AdvReac Type Severity Reaction Status Date / Time dexamethasone [DEXAMETHASONE] Allergy Unknown Verified 12/28/18 10:48 triamcinolone [From KENALOG] Allergy Unknown Verified 12/28/18 10:48 Review of Systems - Review of Systems Review of systems:: pertinent systems reviewed and negative unless documented below - *Cardiovascular Reports chest pain, Denies shortness of breath - *Respiratory Denies shortness of breath - *Gastrointestinal Denies loose stools, Denies nausea, Denies vomiting - *Genitourinar
--- NOTE | 2020-06-13 07:22 | HMH.HPDC ---
General - General Admission date:: 06/13/20 Discharge date: 06/14/20 *Admission Date: 06/13/20 *Chief complaint: Chest pain *History of present illness: 60-year-old female with hypertension presented to the emergency department with chest pain. Patient's chest pain began around 9 PM yesterday and was located in the center of the chest and parasternal area. Pain was nonradiating. Pain was most notable with movement. Patient denies symptoms of heartburn. Patient had spent the day yesterday with her celebrating her anniversary at [facility]. Patient initially tried to sleep the pain away but when pain did not improve she ultimately presented to the emergency department early this morning. Pain decreased in intensity and patient was admitted for rule out of MS and cardiology consultation. At present the patient reports persistence of her chest pain [facility] History I have reviewed the patient's past medical history: Yes Medical History: Reports:: Hypertension Denies:: Cancer, Diabetes Mellitus Type 1, Diabetes Mellitus Type 2, MRSA *Have you ever received a pneumonia vaccine?: No *Have you received a flu vaccine this season?: Yes Other Medical History: Reports: Hypothyroidism, Other Other Surgeries: Yes: , Hysterectomy-Partial, Other Amputation: No Fractures: No - *Social History Smoking Status: Never smoker Alcohol Intake: never *Occupational Status:: employed Housing: house Household Members: spouse *Travel in the last 8 weeks: None Family Hx:: Non-contributory Review of Systems - Constitutional Denies body ache(s), Denies chills - *Cardiovascular Reports chest pain, Reports chest pain at rest, Reports chest pain with activity - *Respiratory Denies change in phlegm color, Denies chest congestion, Denies cough, Denies shortness of breath - *Gastrointestinal Denies abdominal pain, Denies belching - *Genitourinary Denies abnormal periods - *Musculoskeletal Denies abnormal walking Exam Vital signs and Labs for Last 24 Hours: Temp Pulse Resp BP Pulse Ox 97.7 F 63 17 141/70 H 98 06/13/20 07:17 06/13/20 07:17 06/13/20 07:17 06/13/20 07:17 06/13/20 07:17 Laboratory Results - last 24 hr 06/12/20 22:03: Urine Color Yellow, Urine Appearance Clear, Urine pH 7.5, Ur Specific [place] 1.010, Urine Protein Negative, Urine Glucose (UA) Negative, Urine Ketones Negative, Urine Blood Trace-i, Urine Nitrate Negative, Urine Bilirubin Negative, Urine Urobilinogen 0.2, Ur Leukocyte Esterase Negative, Urine WBC Occasional, Ur Squamous Epith Cells Occasional, Urine Bacteria Trace 06/12/20 22:03: Urine Opiates Screen Negative, Urine Methadone Screen Negative, Ur Barbituates Screen Negative, Ur Phencyclidine Scrn Negative, Ur Amphetamines Screen Negative, U Benzodiazepines Scrn Negative, Urine Cocaine Screen Negative, U Marijuana (THC) Screen Negative 06/12/20 22:25: WBC 9.7, RBC 3.69 L, Hgb 11.9 L, Hct 34.6 L, MCV 93.6, MCH 32.3 H, MCHC 34.5, RDW 13.7, Plt Count 399, MPV 7.2 L, Neut % (Auto) 62.5, Lymph % (Auto) 26.7, [place] % (Auto) 6.2, Eos % (Auto) 4.0, Baso % (Auto) 0.6, Neut # (Auto) 6.1, Lymph # (Auto) 2.6, [place] # (Auto) 0.6, Eos # (Auto) 0.4, Baso # (Auto) 0.1 06/12/20 22:25: Sodium 135 L, Potassium 3.8, Chloride 98, Carbon Dioxide 28, Anion Gap 12.8, BUN 17, Creatinine 0.90, Estimated Creat Clear 87, Estimated GFR 64, Est GFR ( Amer) 78, Glucose 112 H, Calcium 9.3, Total Bilirubin 0.4, AST 26, ALT 14, Alkaline Phosphatase 86, Troponin I < 0.01, Total Protein 7.2, Albumin 4.0, Globulin 3.2, Albumin/Globulin Ratio 1.3 06/13/20 02:05: Troponin I < 0.01 06/13/20 05:20: Troponin I < 0.01 06/13/20 05:20: WBC 9.4, RBC 3.53 L, Hgb 11.2 L, Hct 32.3 L, MCV 91.5, MCH 31.8 H, MCHC 34.8, RDW 13.9, Plt Count 360, MPV 7.4, Neut % (Auto) 61.7, Lymph % (Auto) 26.9, [place] % (Auto) 6.6, Eos % (Auto) 4.5, Baso % (Auto) 0.4, Neut # (Auto) 5.8, Lymph # (Auto) 2.5, [place] # (Auto) 0.6, Eos # (Auto) 0.4, Baso # (Auto) 0.0
--- NOTE | 2020-06-13 07:43 | HMH.PHAVTE ---
[facility] Pharmacy VTE Monitoring - Patient Demographics Admission date: 06/13/20 Report Date: 06/13/20 Time: 07:43 Allergies/Adverse Reactions: Patient Allergies dexamethasone [DEXAMETHASONE] Allergy (Unknown, Verified 12/28/18 10:48) triamcinolone [From KENALOG] Allergy (Unknown, Verified 12/28/18 10:48) Height: 1.57 m Weight: 81.647 kg Patient Problems: Current Active Problems Atypical chest pain (Acute) Hypertension (Acute) Hypothyroidism (Acute) History of syncope (Acute) - VTE Risk Labs: VTE Related Lab Results Hgb 11.2 g/dL (12.2-16.2) L 06/13/20 05:20 Hct 32.3 % (37.0-47.0) L 06/13/20 05:20 Plt Count 360 K/mm3 (142-424) 06/13/20 05:20 BUN 21 mg/dl (7-17) H 06/13/20 05:20 Creatinine 0.70 mg/dl (0.52-1.04) D 06/13/20 05:20 Estimated Creat Clear 112 mL/min (50-200) 06/13/20 05:20 VTE Score: 2 Clinical Trial Participant: No - Prophylaxis VTE Prophylaxis Ordered?: Yes Types of VTE Prophylaxis: TEDS Knee High
--- NOTE | 2020-06-13 07:56 | HMH.PHAINT ---
HOME MEDICATION RECONCILIATION COMPLETED USING LIST FROM HOME PHARMACY
--- NOTE | 2020-06-13 14:04 | PC.NURSE ---
CONTACTED DR SHUKLA DUE TO DOYLE CATH PLACED IN ER. AT THIS TIME DOYLE WILL BE REMOVED
[2020-06-13 14:07] LABS: CATHL Activated Clotting Time 368 SEC (74-125)
--- NOTE | 2020-06-13 17:25 | PC.NURSE ---
PATIENT RETURNED TO FLOOR FROM HEART CATH AT 1400. TOLERATED PROCEDURE WELL. REMOVED DOYLE CATH AND PATIENT HAS BEEN UP TO VOID SINCE. BEGAN REMOVING AIR FROM RADIAL BAND AT 1530 1530 REMOVED 2 ML AIR 10 ML REMAINING 1545 REMOVED 2 ML AIR 8 ML REMAINING 1600 REMOVED 2 ML AIR 6 ML REMAINING 1615 REMOVED 2 ML AIR 4 ML REMAINING 1630 REMOVED 2 ML AIR 2 ML REMAINING 1645 REMOVED 2 ML AIR 0 ML REMAINING 1700 REMOVED RADIAL BAND AND REPLACED WITH TELFA/TEGADERM 1735 PATIENT CALLED OUT AND REPORTED BLEEDING. THERE IS A SMALL SHADOW OF BLOOD ON THE DRESSING. I APPLIED SAND BAG AND WILL RE-EVALUATE
--- NOTE | 2020-06-13 18:43 | PC.NURSE ---
ENRIQUE REMOVED NO CHANGE TO BLOOD SHADOW. MARKED WITH PERMANENT MARKER. WILL INFORM ONCOMING NURSE
[2020-06-14] VITALS (8 sets, daily range): BP systolic 108–147; BP diastolic 51–62; PULSE 61–73; RESP 14–17; TEMP 36.7–36.9; O2SAT 95–99; BMI 34.4
[2020-06-14 06:24] LABS: Basophils % 0.3 % (0.1-2.0); Eosinophils # 0.2 K/mm3 (0.0-0.4); Eosinophils % 2.7 % (0.1-12.0); Hematocrit 33.2 % (37.0-47.0); Hemoglobin 11.6 g/dL (12.2-16.2); Lymphocytes # 2.1 K/mm3 (0.7-4.5); Lymphocytes % 23.5 % (10-50); Mean Corpuscular HGB Conc 34.8 g/dL (31.8-35.4); Mean Corpuscular Hemoglobin 31.9 pg (27.0-31.2); Mean Corpuscular Volume 91.7 fl (81-99); Mean Platelet Volume 7.4 fl (7.4-10.4); Monocytes # 0.5 K/mm3 (0.1-1.0); Monocytes % 5.1 % (1.7-9.3); Neutrophils # 6.1 K/mm3 (1.8-7.8); Neutrophils % 68.4 % (37.0-80.0); Platelet Count 364 K/mm3 (142-424); Red Blood Count 3.63 M/mm3 (4.20-5.40); Red Cell Distribution Width 13.6 % (11.5-17.5); White Blood Count 8.8 K/mm3 (4.8-10.8)
[2020-06-14 06:28] LABS: Chloride 100 mmol/L (98-107); Potassium 3.7 mmoL/L (3.5-5.1); Sodium 136 mmol/L (136-145)
[2020-06-14 06:31] LABS: Anion Gap 10.7 mEq/L (5-15); Blood Urea Nitrogen 16 mg/dl (7-17); Carbon Dioxide 29 mmol/L (22.0-30.0); Creatinine Clearance Estimated 116 mL/min (50-200); Estimated Glomerular Filt Rate 86 ml/min (>60); GFR (African American) 104 ML/MIN (>60); Glucose 122 mg/dl (74-100)
--- NOTE | 2020-06-14 07:04 | HMH.DCSUM ---
General - General Admission date:: 06/13/20 Discharge date: 06/14/20 HPI HPI: 60-year-old female with hypertension presented to the emergency department with chest pain. Patient's chest pain began around 9 PM yesterday and was located in the center of the chest and parasternal area. Pain was nonradiating. Pain was most notable with movement. Patient denies symptoms of heartburn. Patient had spent the day yesterday with her celebrating her anniversary at [facility]. Patient initially tried to sleep the pain away but when pain did not improve she ultimately presented to the emergency department early this morning. Pain decreased in intensity and patient was admitted for rule out of MT and cardiology consultation. At present the patient reports persistence of her chest pain Hospital Course Hospital Course: Patient was admitted and ruled out for myocardial infarction with serial enzymes. Cardiology was consulted. Due to persistent nature of patient's chest pain it was decided that left heart cath would proceed. Patient underwent left heart catheterization on with findings as follows: ANGIOGRAPHIC RESULTS The left main artery Has an ostial 50% stenosis The left anterior descending artery Has a severe proximal greater than 70% stenosis The circumflex artery Gives rise to a moderate size ramus intermedius which has mild proximal 10 to 20% stenosis. The circumflex artery itself has mild luminal irregularities approximately 10% severity The right coronary artery Is a dominant vessel and has proximal to mid vessel 20 to 30% stenoses as well as a 20% stenosis in the proximal large posterior lateral branch The PINTO ventriculogram reveals Normal 65% The left ventricular end-diastolic pressure 15 mmHg IMPRESSION Coronary artery disease as described above Successful stenting of the ostial left main artery severe disease reduced to 0% with one drug-eluting stent Successful stenting of the proximal LAD severe disease reduced to 0% with one drug-eluting stent Normal ejection fraction Mildly elevated LVEDP PLAN 1. Brilinta 90 mg twice daily plus aspirin 81 mg daily 2. LDL less than 55 3. Cardiac rehabilitation 4. Aggressive risk factor modification using guideline mediated therapy 5. Avoidance of all tobacco products Patient was admitted overnight for observation. She ambulated without difficulties during the post procedure period. Patient was discharged home the next morning on June 14. Patient will follow-up with Dr. Goode in 1 week and keep her previously scheduled follow-up appointment with me on June 16 Objective Vital signs: Temp Pulse Resp BP Pulse Ox 98.0 F 61 14 141/62 H 97 06/14/20 04:00 06/14/20 06:00 06/14/20 06:00 06/14/20 06:00 06/14/20 06:00 no acute distress - *Routine Respiratory Exam Present: CTA bilaterally - *Routine Cardiovascular Exam Present: RRR - *Routine Abdominal Exam Present: soft, normoactive bowel sounds. Absent: tenderness Results Labs on day of discharge: Labs from last 24 hours 06/14/20 06/14/20 06/13/20 06:09 06:09 12:09 WBC 8.8 RBC 3.63 L Hgb 11.6 L Hct 33.2 L MCV 91.7 MCH 31.9 H MCHC 34.8 RDW 13.6 Plt Count 364 MPV 7.4 Neut % (Auto) 68.4 Lymph % (Auto) 23.5 [place] % (Auto) 5.1 Eos % (Auto) 2.7 Baso % (Auto) 0.3 Neut # (Auto) 6.1 Lymph # (Auto) 2.1 [place] # (Auto) 0.5 Eos # (Auto) 0.2 Baso # (Auto) 0.0 Activated Clotting Time 368 H* Sodium 136 Potassium 3.7 Chloride 100 Carbon Dioxide 29 Anion Gap 10.7 BUN 16 Creatinine 0.70 Estimated Creat Clear 116 Estimated GFR 86 Est GFR ( Amer) 104 Glucose 122 H Calcium 9.0 DS: Diagnosis - Discharge Diagnosis (1) Coronary artery disease Status: Acute (2) Unstable angina Status: Resolved (3) POTS (postural orthostatic tachycardia syndrome
[2020-06-14 07:18] LABS: Cholesterol 172 mg/dl (140-200); Triglycerides 58 mg/dl (30-150); VLDL Cholesterol 12 mg/dL (0-40)
[2020-06-14 07:19] LABS: Chol/HDL Ratio 3.5 (1-3.5); HDL Cholesterol 49 mg/dl (40-60)
[2020-06-14 07:29] LABS: Direct LDL Cholesterol 100.94 mg/dL (100-129)
[2020-06-14 07:50] LABS: Thyroid Stimulating Hormone 3.01 uIU/mL (0.465-4.68)
--- NOTE | 2020-06-14 09:05 | HMH.PNCARD ---
Subjective Date: 06/14/20 Time: 09:05 Principal diagnosis: angina, CAD Interval history: -year-old white female who was admitted to the hospital with chest pain. She underwent left cardiac catheterization yesterday and had stenting to the LAD and ostial left main. She tolerated the procedure well and will remain on dual antiplatelet therapy with Brilinta and aspirin. She reports having one episode of slight chest pain in her chest when she rolled over. She states that this was mostly like a staying in her chest and then resolved quickly. She states that this is not like the chest pain she was having prior to having her stents placed. This is most likely from reperfusion. She denies any shortness of breath or edema. She denies any fever, chills, nausea, vomiting, diarrhea, PND or orthopnea. Exam Vital signs and Labs for Last 24 Hours: Temp Pulse Resp BP Pulse Ox 98.2 F 70 16 147/56 H 97 06/14/20 07:41 06/14/20 08:00 06/14/20 07:41 06/14/20 07:41 06/14/20 08:00 Laboratory Results - last 24 hr 06/13/20 12:09: Activated Clotting Time 368 H* 06/14/20 06:09: WBC 8.8, RBC 3.63 L, Hgb 11.6 L, Hct 33.2 L, MCV 91.7, MCH 31.9 H, MCHC 34.8, RDW 13.6, Plt Count 364, MPV 7.4, Neut % (Auto) 68.4, Lymph % (Auto) 23.5, [place] % (Auto) 5.1, Eos % (Auto) 2.7, Baso % (Auto) 0.3, Neut # (Auto) 6.1, Lymph # (Auto) 2.1, [place] # (Auto) 0.5, Eos # (Auto) 0.2, Baso # (Auto) 0.0 06/14/20 06:09: Sodium 136, Potassium 3.7, Chloride 100, Carbon Dioxide 29, Anion Gap 10.7, BUN 16, Creatinine 0.70, Estimated Creat Clear 116, Estimated GFR 86, Est GFR ( Amer) 104, Glucose 122 H, Calcium 9.0 06/14/20 06:09: Triglycerides 58, Cholesterol 172, LDL Cholesterol Direct 100.94, VLDL Cholesterol 12, HDL Cholesterol 49, Cholesterol/HDL Ratio 3.5, TSH 3.01 I & O for Last 24 hours: Intake & Output 06/11/20 06/12/20 06/13/20 06/14/20 23:59 23:59 23:59 23:59 Intake Total 440 / 450 Output Total 2375 / 2375 Balance -1935 / -1925 Weight 180 lb 180 lb 187 lb Narrative: Telemetry strip is sinus rhythm with a rate of 67. - Constitutional no acute distress, obese - *Routine HEENT Exam Head: Present: normocephalic, atraumatic Eye: Present: EOMI, PERRL ENT: Present: mucous membranes moist - *Routine Neck Exam Present: supple, full ROM, normal carotid upstroke. Absent: JVD, carotid bruit, lymphadenopathy - *Routine Respiratory Exam Present: CTA bilaterally - *Routine Cardiovascular Exam Present: RRR, Normal S1, Normal S2. Absent: murmur - *Routine Abdominal Exam Present: soft, normoactive bowel sounds. Absent: tenderness, distended - *Routine Extremities Exam Present: full ROM, pulses intact, normal capillary refill. Absent: cyanosis, clubbing, edema - *Routine Skin Exam Present: intact, warm. Absent: erythema, rash - *Routine Neurological Exam Present: alert, oriented X3, CN II-XII intact. Absent: sensory deficit, motor deficit Progress Note: A&P (1) Unstable angina Status: Resolved Current Visit: Yes (2) Coronary artery disease Status: Acute Current Visit: Yes (3) POTS (postural orthostatic tachycardia syndrome) Status: Chronic Current Visit: Yes (4) Hypertension Status: Chronic Current Visit: Yes (5) Hypothyroidism Status: Chronic Current Visit: Yes (6) HLD (hyperlipidemia) Status: Chronic Current Visit: Yes Assessment and Plan for All Diagnoses:: Plan: 1. The patient was admitted to the hospital with chest pain. [place] to have unstable angina and underwent left cardiac catheterization yesterday with stenting to the left main and LAD. She will be on Brilinta and aspirin for dual antiplatelet therapy. 2. Her coronary artery disease is likely stable. 3. She did have an episode of chest pain while turning over this morning. She states that this chest pain is not the same chest pain she had prior to stenting. This is most likely from reperfusion. No changes
--- NOTE | 2020-06-14 09:26 | HMH.PHACLD ---
Shruthi Giles has received discharge medication counseling on the following medications: PATIENT IS ALREADY TAKING LOSARTAN 100 MG DAILY AND ATENOLOL 50 MG DAILY. MD ADDING ATORVASTATIN 40 MG HS, ASPIRIN 81 MG EC DAILY, AND BRILINTA 90 MG BID.
[2020-07-17 11:51] LABS: POC Glucose,Bedside 111 (70-110)
== END 2020-06-14 10:53 | disposition home or self-care (01) ==
LOC: ER 23:11 → 2ND 06-13 03:17
PROVIDERS: Internal Medicine; Admitting Provider Internal Medicine Adolescent Medicine; Emergency Provider Family Medicine; PCP Family Medicine; Visit Provider Family Medicine
DX: I25.110 Atherosclerotic heart disease of native coronary artery with unstable angina pectoris (principal); I10 Essential (primary) hypertension; E03.9 Hypothyroidism, unspecified; Z88.8 Allergy status to other drugs, medicaments and biological substances; Z79.899 Other long term (current) drug therapy; I49.8 Other specified cardiac arrhythmias
CPT/HCPCS: 36415; 70450; 71045; 80048; 80053; 80061; 80305; 81001; 82962; 84443; 84484; 85025; 85347; 92928; 93005; 93458; 96365; 96375; 99152; 99153; 99285; C1725; C1760; C1769; C1876; C9600; G0378; J1644; J2405; Q9967

== ENCOUNTER 2020-06-22 13:15 | Outpatient (RCR) | payer OTHER, SELFPAY | END 2020-08-24 13:45 | disposition home or self-care (01) | LOC: PT 13:15 | PROVIDERS: Visit Provider Internal Medicine | DX: Z95.5 Presence of coronary angioplasty implant and graft (principal) | CPT/HCPCS: 93798 ==

== ENCOUNTER 2020-06-23 10:22 | Observation (INO) | payer OTHER, SELFPAY ==
[2020-06-23] VITALS (23 sets, daily range): BP systolic 112–177; BP diastolic 52–74; PULSE 48–87; RESP 14–18; TEMP 36.4–36.9; O2SAT 91–100; BMI 24.8; BMI 34.0; BMI 34.4
--- NOTE | 2020-06-23 | IR_ITS ---
APPROVED REPORT Patient Location: Outpatient Grating Machine Operator: TRE Riggins RT (R) PROCEDURES Left heart catheterization Left ventriculogram Selective coronary angiogram Drug-eluting stent deployment to the ostial proximal left main artery Drug-eluting stent deployment to the proximal LAD Drug-eluting stent deployment to the proximal circumflex artery Intra-vascular ultrasound of the LAD Intra-vascular ultrasound to the ramus intermedius Intravascular ultrasound of the circumflex artery INDICATION Coronary artery disease, Unstable angina, Circumflex artery dissection, Angiographic ambiguity involving the ramus intermedius LAD and circumflex artery Informed consent was obtained prior to the procedure. COMPLICATIONS None Estimated Blood Loss: less than 10ml TECHNIQUE One percent lidocaine used to anesthetize the right anterior aspect of the wrist. The right radial artery was accessed via the Seldinger technique. A 6 Bulgarian sheath was placed in the right radial artery. 2.5 mg of verapamil, 800 mcg of nitroglycerin, 1mg Lidocaine and 5000 U Heparin were given through the arterial sheath. The trap catheter was also used to perform left heart catheterization, left ventriculogram and selective coronary angiogram. The JL 3 guide catheter was used to perform left coronary artery angiography. At the end of the diagnostic procedure therapeutic heparin was administered and a Choice PT wire was placed into the LAD. An intravascular ultrasound was advanced and used to interrogate the LAD. The wire was placed into the ramus intermedius and the procedure was repeated with the intravascular ultrasound probe. The wire was then placed into the circumflex artery and the intravascular ultrasound procedure was also performed in the circumflex artery. At the end of the intravascular ultrasound angiography demonstrated a hazy dissecting flap in the ostium of the circumflex artery therefore 2.75 x 12 mm resolute pat stent was deployed in the ostial segment at 20 nadir reducing the dissection. MIR-3 flow was present before and after the procedure. A 3.5 x 12 mm resolute pat stent was then deployed in the ostium of the left main artery extending into the mid left main artery and deployed at 24 nadir. The wire was then placed into the LAD where a 3 mm x 15 mm resolute pat stent was placed into the LAD back into the left main artery deployed at 20 nadir. A 3.5 x 15 mm noncompliant balloon was then deployed in the proximal ostial left main artery at 20 nadir and then pulled back into the left main artery and deployed at 24 nadir in the distal segment mid segment proximal segment and ostial segment. After achieving excellent angiographic results with wide patency of all 3 arteries it was decided to end the procedure. The apparatus was removed the sheath was removed good hemostasis was achieved using TR banding patient was transferred to the postop holding her stable condition ANGIOGRAPHIC RESULTS The left main artery Has an ostial 20% stenosis followed by a stent. Distally there is a 40 to 50% stenosis The left anterior descending artery Has an ostial 50% stenosis followed by a widely patent stent The circumflex artery There is rise to a ramus intermedius which has proximal 20% stenosis followed by mid vessel 30 to 40% stenosis. The circumflex artery is a large vessel and has haziness in his ostial proximal segment which later proved to be a dissection. Following stenting this vessel was widely patent The right coronary artery Is a dominant vessel and has proximal and mid vessel 30% stenoses. Distally there are 20 and 30% stenoses The PINTO ventriculogram reveals 65% The left ventricular end-diastolic pressure 10 mmHg
--- NOTE | 2020-06-23 10:17 | ECG_ITS ---
APPROVED REPORT Exam: Resting ECG HR:63 bpm ECG Measurements Heart Rate 63 AXES NV 174 P 33 QRSd 92 QRS 18 QT 402 T 52 QTc 411 <Conclusion> Normal sinus rhythm Normal ECG Electronically signed by : Harpreet Cole, 06/24/2020 08:26:21
--- NOTE | 2020-06-23 10:23 | HMH.EDGENADL ---
ED Disposition Clinical Impression: Jaw pain Disposition: Still a Patient Condition on Discharge: Fair - Critical Care Critical Care Time: No Attestation: On , the high probability of a clinically significant, sudden or life threatening deterioration of the following system(s) required my full and direct attention, intervention and personal management. The time I documented below is in addition to time spent performing reported procedures but includes the following listed in this critical care notation. Medical Decision Making - Medical Records Medical records reviewed: Yes: I reviewed the patient's medical records. - Alexi Inquiry Pt receiving controlled substance: No Vital Signs: 06/23/20 10:23 06/23/20 10:25 06/23/20 10:43 Temperature 98 F Temperature Source Oral Pulse Rate Pulse Rate [Left Radial] 63 66 Respiratory Rate 18 Blood Pressure Blood Pressure [Right Arm] 177/74 H 155/56 H 118/72 Blood Pressure Mean [Right Arm] 108 89 87 Blood Pressure Source Blood Pressure Position Blood Pressure Position [Right Arm] Sitting 02 Sat by Pulse Oximetry 96 Oxygen Delivery Method Room Air 06/23/20 10:47 06/23/20 11:57 Temperature 98 F Temperature Source Oral Pulse Rate 87 Pulse Rate [Left Radial] 55 L Respiratory Rate 16 Blood Pressure 128/71 Blood Pressure [Right Arm] 126/70 Blood Pressure Mean [Right Arm] 88 Blood Pressure Source Automatic Cuff Blood Pressure Position Sitting Blood Pressure Position [Right Arm] Sitting 02 Sat by Pulse Oximetry Oxygen Delivery Method Room Air - Lab Data Lab results reviewed: Yes: I reviewed the patient's lab results. Lab Results 06/23/20 10:24: WBC 8.4, RBC 3.97 L, Hgb 12.8, Hct 36.2 L, MCV 91.1, MCH 32.1 H, MCHC 35.3, RDW 13.7, Plt Count 484 H, MPV 7.0 L, Neut % (Auto) 69.5, Lymph % (Auto) 20.7, [place] % (Auto) 5.1, Eos % (Auto) 4.0, Baso % (Auto) 0.7, Neut # (Auto) 5.8, Lymph # (Auto) 1.7, [place] # (Auto) 0.4, Eos # (Auto) 0.3, Baso # (Auto) 0.1 06/23/20 10:24: Sodium 138, Potassium 3.3 L, Chloride 99, Carbon Dioxide 28, Anion Gap 14.3, BUN 13, Creatinine 0.70, Estimated Creat Clear 115, Estimated GFR 86, Est GFR ( Amer) 104, Glucose 158 H, Calcium 9.6, Troponin I < 0.01 06/23/20 11:55: Activated Clotting Time 366 H* Result diagrams: 06/23/20 10:24 06/23/20 10:24 Orders (Tests/Meds): ED MEDICATIONS Generic Name Dose Route Start Last Admin Trade Name Freq PRN Reason Stop Dose Admin Acetaminophen 325 mg 06/23/20 13:10 Acetaminophen 325mg Tab PO 07/23/20 13:09 Q4HP PRN Mild Pain Acetaminophen 650 mg 06/23/20 13:10 Acetaminophen 325mg Tab PO 07/23/20 13:09 Q4HP PRN Mild to Moderate Pain Aspirin 81 mg 06/24/20 09:00 Aspirin 81mg Enteric Coated Tablet PO 07/24/20 08:59 DAILY KIRAN Atenolol 50 mg 06/24/20 09:00 Tenormin 50mg Tablet PO 07/24/20 08:59 DAILY [facility] Atorvastatin Calcium 40 mg 06/23/20 21:00 Lipitor 40mg Tablet PO 07/23/20 20:59 HS [facility] Fentanyl Citrate 25 mcg 06/23/20 11:08 Fentanyl 250mcg/5ml Vial IV 06/24/20 11:08 Q3MINP PRN Moderate to Severe Pain Fentanyl Citrate 50 mcg 06/23/20 11:08 Fentanyl 250mcg/5ml Vial IV 06/24/20 11:08 Q3MINP PRN Moderate to Severe Pain Fentanyl Citrate 25 mcg 06/23/20 11:12 06/23/20 12:22 Fentanyl 100mcg/2ml Vial IV 06/24/20 11:12 50 mcg Q3MINP PRN Administration Moderate to Severe Pain Fentanyl Citrate 50 mcg 06/23/20 11:12 Fentanyl 100mcg/2ml Vial IV 06/24/20 11:12 Q3MINP PRN Moderate to Severe Pain Flumazenil 0.2 mg 06/23/20 11:08 Romazicon 0.1mg/Ml 5ml Vial IV 06/23/20 23:00 NEEDED PRN Sedation Hydrochlorothiazide 25 mg 06/24/20 09:00 Hctz 25mg Tablet PO 07/24/20 08:59 DAILY KIRAN Sodium Chloride 1,000 mls @ 25 mls/hr 06/23/20 11:15 06/23/20 12:10 Sod Chlor 0.9% 1000ml Bag IV 06/24/20 11:12 25 mls/hr
--- NOTE | 2020-06-23 10:25 | XR_ITS ---
PROCEDURE: XR CHEST PORTABLE CLINICAL HISTORY: CHEST PAIN Recent cardiac stent placements COMPARISON: CR CXR2V XR chest 2V from 02/28/2019 CR XR CHEST 2V from 11/08/2019 CR XR CHEST PORTABLE from 06/12/2020 FINDINGS: The cardiomediastinal silhouette and pulmonary vascularity are within normal limits. The lungs are clear without infiltrates, suspicious nodules, or pleural effusions. No acute bony abnormalities. There mild to moderate multilevel degenerate changes lower thoracic spine. There monitor lines overlying the chest. IMPRESSION: No acute findings. Dictated Dr. Vincent Montiel MD 06/23/2020 10:59 Dr. Vincent Henning MD in [place] 06/23/2020 10:59
[2020-06-23 10:35] LABS: Basophils # 0.1 K/mm3 (0-0.2); Basophils % 0.7 % (0.1-2.0); Eosinophils # 0.3 K/mm3 (0.0-0.4); Hematocrit 36.2 % (37.0-47.0); Hemoglobin 12.8 g/dL (12.2-16.2); Lymphocytes # 1.7 K/mm3 (0.7-4.5); Lymphocytes % 20.7 % (10-50); Mean Corpuscular HGB Conc 35.3 g/dL (31.8-35.4); Mean Corpuscular Hemoglobin 32.1 pg (27.0-31.2); Mean Corpuscular Volume 91.1 fl (81-99); Monocytes # 0.4 K/mm3 (0.1-1.0); Monocytes % 5.1 % (1.7-9.3); Neutrophils # 5.8 K/mm3 (1.8-7.8); Neutrophils % 69.5 % (37.0-80.0); Platelet Count 484 K/mm3 (142-424); Red Blood Count 3.97 M/mm3 (4.20-5.40); Red Cell Distribution Width 13.7 % (11.5-17.5); White Blood Count 8.4 K/mm3 (4.8-10.8)
--- NOTE | 2020-06-23 10:36 | PC.NURSE ---
Spoke with Willem in Dr. Goode office
[2020-06-23 10:39] LABS: Chloride 99 mmol/L (98-107); Potassium 3.3 mmoL/L (3.5-5.1); Sodium 138 mmol/L (136-145)
[2020-06-23 10:42] LABS: Anion Gap 14.3 mEq/L (5-15); Blood Urea Nitrogen 13 mg/dl (7-17); Calcium 9.6 mg/dl (8.4-10.2); Carbon Dioxide 28 mmol/L (22.0-30.0); Creatinine Clearance Estimated 115 mL/min (50-200); Estimated Glomerular Filt Rate 86 ml/min (>60); GFR (African American) 104 ML/MIN (>60); Glucose 158 mg/dl (74-100)
--- NOTE | 2020-06-23 10:44 | PC.NURSE ---
pt c/o nausea. Willem Clark at bedside. pt simon
--- NOTE | 2020-06-23 10:57 | HMH.CNCARD ---
History of Present Illness Consult date: 06/23/20 Requesting physician: Rafita Valle Consult reason: chest pain Chief complaint: chest pain Additional Medical History:: 1. HTN A. Echo, 11/2019, 1. Biatrial enlargement, normal left ventricular size, mild concentric left ventricular hypertrophy, visually estimated ejection fraction 55% with no regional wall motion abnormality, grade 1 diastolic dysfunction seen without tissue Doppler evidence of raise left atrial pressure. 2. Mildly enlarged right ventricle with normal contractility. 3. Mild mitral and tricuspid regurgitation. 4. No significant pericardial effusion noted. 2. CAD A. Lexiscan myoview, 11/2019, No ischemia with LVEF of 65% B. UAP, 06/13/2020, [facility]:ANGIOGRAPHIC RESULTS The left main artery Has an ostial 50% stenosis The left anterior descending artery Has a severe proximal greater than 70% stenosis The circumflex artery Gives rise to a moderate size ramus intermedius which has mild proximal 10 to 20% stenosis. The circumflex artery itself has mild luminal irregularities approximately 10% severity The right coronary artery Is a dominant vessel and has proximal to mid vessel 20 to 30% stenoses as well as a 20% stenosis in the proximal large posterior lateral branch The PINTO ventriculogram reveals Normal 65% The left ventricular end-diastolic pressure 15 mmHg IMPRESSION Coronary artery disease as described above Successful stenting of the ostial left main artery severe disease reduced to 0% with one drug-eluting stent Successful stenting of the proximal LAD severe disease reduced to 0% with one drug-eluting stent Normal ejection fraction Mildly elevated LVEDP PLAN 1. Brilinta 90 mg twice daily plus aspirin 81 mg daily 2. LDL less than 55 3. Cardiac rehabilitation 4. Aggressive risk factor modification using guideline mediated therapy 5. Avoidance of all tobacco products C. Recurrent chest pain, 06/23/2020, [facility] results: 3. Hypothyroidism, on replacement 4. History of syncope A. positive Tilt table test, 2016 with near syncope, elevated HR of 145 bpm with drop in systolic BP into the low 60's mm Hg B. MRI of head, 2016, negative for acute process 5. Family history of heart disease in her father and brother History of present illness: 60-year-old white female with history as noted above with recent stenting to left main and LAD last week presented to the emergency department this morning after 2 hours of jaw and neck discomfort. Some mild chest pain also associated with this. No recent fever, chills, nausea, vomiting or diarrhea. Patient was at home doing nothing exertional when symptoms onset this a.m. She contacted her who brought her to the ER for further evaluation. EKG on admission shows normal sinus rhythm with no acute ST segment changes. Initial troponin is pending. Patient was given a sublingual nitroglycerin in the ER with improvement in symptoms initially but then related a heaviness in the chest. During this time her blood pressure dropped approximately 30 points systolically. She did note some nausea and was given Zofran for this. Discussion with Dr. Goode was undertaken and it was elected to proceed with repeat cardiac catheterization due to the patient's recent left main/LAD stenting. [facility] History Medical History: Reports:: Coronary Artery Disease, Gastroesophageal Reflux Disease(GERD), Hyperlipidemia, Hypertension Denies:: Cancer, Diabetes Mellitus Type 1, Diabetes Mellitus Type 2, MRSA *Have you ever received a pneumonia vaccine?: No *Have you received a flu vaccine this season?: No Other Medical History: Reports: Hypothyroidism, Other Other Surgeries: Yes: Cardiac Catheterization, Coronary Stent, , Hysterectomy-Partial, Other Amputation: No Fractures: No - *Social History Smoking Status: Never smoker Alcohol Intake: never *Occupational Status:: employed Housing: house Household Members: spo
[2020-06-23 11:04] LABS: Troponin I < 0.01 ng/ml (0.00-0.034)
--- NOTE | 2020-06-23 13:38 | P.CONPHA_ITS ---
[facility] Pharmacy VTE Monitoring - Patient Demographics Admission date: 06/23/20 Report Date: 06/23/20 Time: 13:38 Allergies/Adverse Reactions: Patient Allergies dexamethasone [DEXAMETHASONE] Allergy (Unknown, Verified 06/21/20 09:09) triamcinolone [From KENALOG] Allergy (Unknown, Verified 06/21/20 09:09) Height: 1.57 m Weight: 84.368 kg Patient Problems: Current Active Problems Jaw pain (Acute) - VTE Risk Labs: VTE Related Lab Results Hgb 12.8 g/dL (12.2-16.2) 06/23/20 10:24 Hct 36.2 % (37.0-47.0) L 06/23/20 10:24 Plt Count 484 K/mm3 (142-424) H 06/23/20 10:24 BUN 13 mg/dl (7-17) 06/23/20 10:24 Creatinine 0.70 mg/dl (0.52-1.04) 06/23/20 10:24 Estimated Creat Clear 115 mL/min (50-200) 06/23/20 10:24 - Prophylaxis VTE Prophylaxis Ordered?: Yes Types of VTE Prophylaxis: TEDS Knee High Location of Applied Device: Bilateral Lower Extremeties - VTE Diagnosis Confirmed Treatment or plan recommended: Continue Current Treatment
--- NOTE | 2020-06-23 13:41 | HMH.PHAINT ---
MEDICATION RECONCILIATION COMPLETED ON PATIENT USING EXTERNAL FILL HISTORY FROM PHARMACY. -NOHEMI VELARDE, ARNIED
[2020-06-23 15:11] LABS: CATHL Activated Clotting Time 366 SEC (74-125)
--- NOTE | 2020-06-23 16:08 | PC.NURSE ---
mumtaz chavez is aware patient has been having a heart rate in 40s/50s
--- NOTE | 2020-06-23 16:27 | HMH.HP ---
*Admission Date: 06/23/20 *Chief complaint: Neck and jaw pain *History of present illness: 10-year-old white female with history as noted above with recent stenting to left main and LAD last week presented to the emergency department this morning after 2 hours of jaw and neck discomfort. Some mild chest pain also associated with this. No recent fever, chills, nausea, vomiting or diarrhea. Patient was at home doing nothing exertional when symptoms onset this a.m. She contacted her who brought her to the ER for further evaluation. EKG on admission shows normal sinus rhythm with no acute ST segment changes. Initial troponin is pending. Patient was given a sublingual nitroglycerin in the ER with improvement in symptoms initially but then related a heaviness in the chest. During this time her blood pressure dropped approximately 30 points systolically. She did note some nausea and was given Zofran for this. After discussion with Dr. Goode decision was made to take the patient to the [facility] for repeat cardiac catheterization. Findings were as follows: ANGIOGRAPHIC RESULTS The left main artery Has an ostial 20% stenosis followed by a stent. Distally there is a 40 to 50% stenosis The left anterior descending artery Has an ostial 50% stenosis followed by a widely patent stent The circumflex artery There is rise to a ramus intermedius which has proximal 20% stenosis followed by mid vessel 30 to 40% stenosis. The circumflex artery is a large vessel and has haziness in his ostial proximal segment which later proved to be a dissection. Following stenting this vessel was widely patent The right coronary artery Is a dominant vessel and has proximal and mid vessel 30% stenoses. Distally there are 20 and 30% stenoses The PINTO ventriculogram reveals 65% The left ventricular end-diastolic pressure 10 mmHg IMPRESSION Coronary disease as described above Revascularization of the entire left main artery using 2 drug-eluting stents Revascularization of the ostial proximal LAD as described above with a single drug-eluting stent Revascularization of the ostial circumflex artery with single drug-eluting stent Normal ejection fraction Normal left ventricular end-diastolic pressure [facility] History I have reviewed the patient's past medical history: Yes Medical History: Reports:: Coronary Artery Disease, Gastroesophageal Reflux Disease(GERD), Hyperlipidemia, Hypertension Denies:: Cancer, Diabetes Mellitus Type 1, Diabetes Mellitus Type 2, MRSA *Have you ever received a pneumonia vaccine?: Yes *Have you received a flu vaccine this season?: No Other Medical History: Reports: Hypothyroidism, Other Other Surgeries: Yes: Cardiac Catheterization, Coronary Stent, , Hysterectomy-Partial, Other Amputation: No Fractures: No - *Social History Last grade of school completed: High school graduate Smoking Status: Never smoker Alcohol Intake: never *Occupational Status:: employed Housing: house Household Members: spouse *Travel in the last 8 weeks: None Family Hx:: Diabetes, Heart Attack, Hyperlipidemia, Hypertension Review of Systems - Review of Systems Review of systems:: unable to obtain (Patient sleeping and partially sedated from recent catheterization) Meds Home Medications Medication Instructions Recorded Confirmed Type Levothyroxine Sodium 100 mcg PO DAILY 01/08/18 06/23/20 History [Levothyroxine 100mcg (0.1MG) Tab] Ropinirole HCl [Requip 0.25mg 0.25 mg PO HS 01/08/18 06/23/20 History Tablet] Omeprazole 20 mg PO DAILY 01/20/20 06/23/20 History hydroCHLOROthiazide [HCTZ 25mg 25 mg PO DAILY 01/20/20 06/23/20 History tab] Losartan Potassium [Cozaar 100mg 100 mg PO DAILY 06/13/20 06/23/20 History Tablets] atenoloL [Atenolol 50mg Tab] 50 mg PO DAILY 06/13/20 06/23/20 History Aspirin [Aspirin 81mg EC Tab] 81 mg PO DAILY 06/23/20 06/23/20 History Atorvastatin Calcium [Lipitor 40mg 40 mg PO 06/23/20
--- NOTE | 2020-06-23 17:13 | PC.NURSE ---
tracelet off at this time. patient is more awake no and eating supper. heart rate is in the upper 50s at this time. bp has been stable. telfa and tegaderm at the site. no signs of bleeding or hematoma. no complaints at this time. vitals stable will continue to monitor.
--- NOTE | 2020-06-23 18:48 | PC.NURSE ---
bp has been charted that they are taken on the right arm. however, all bps have been taken since catholic priest on the left arm.
[2020-06-23 20:08] LABS: Adenovirus,PCR Not Detected (NotDetected); Bordetella Pertussis Not Detected (NotDetected); Chlamydophila Pneumoniae, PCR Not Detected (NotDetected); Coronavirus 19, PCR Not Detected (NotDetected); Coronavirus 229E Not Detected (NotDetected); Coronavirus NL63 Not Detected (NotDetected); Coronavirus OC43 Not Detected (NotDetected); Coronovirus HKU1,PCR Not Detected (NotDetected); Human Metapneumovirus Not Detected (NotDetected); Influenza A, PCR Not Detected (NotDetected); Influenza AH1, 2009 Not Detected (NotDetected); Influenza AH1, PCR Not Detected (NotDetected); Influenza AH3,PCR Not Detected (NotDetected); Influenza B, PCR Not Detected (NotDetected); Mycoplasma Pneumoniae, PCR Not Detected (NotDetected); Parainfluenza 1, PCR Not Detected (NotDetected); Parainfluenza 2, PCR Not Detected (NotDetected); Parainfluenza 3, PCR Not Detected (NotDetected); Parainfluenza 4, PCR Not Detected (NotDetected); Respiratory Syncytial Virus Not Detected (NotDetected); Rhinovirus/Enterovirus Not Detected (NotDetected)
[2020-06-23 20:30] LABS: Coronavirus 19 IgG Antibody Negative (Negative); Coronavirus 19 IgM Antibody Negative (Negative)
--- NOTE | 2020-06-23 23:23 | PC.NURSE ---
Pt's room air sat at rest = 85%.
[2020-06-24] VITALS (10 sets, daily range): BP systolic 104–162; BP diastolic 45–65; PULSE 50–83; RESP 15–20; TEMP 36.6–36.9; O2SAT 91–99; BMI 33.5
--- NOTE | 2020-06-24 04:57 | PC.NURSE ---
She ambulated to the BR at shift change but she had poor balance. She is uses the call light appropriately and her is at the bedside. She denies CP. Received PRN acetaminophen for a headache this morning. There was some question by her and her about the location and the number of stents she received. She was given a copy of the cards from the 3 stents from her heart cath yesterday but was also informed the would receive the original copies in her discharge packet which is on her chart. DSG is intact on the right radial site with a small amount of serosanguineous drainage. She has been NSR on telemetry t/o the shift except a period between 0230 and 0330 where her rate decreased to 55 a couple of times but would rebound into the 60s quickly.
[2020-06-24 05:51] LABS: Basophils # 0.1 K/mm3 (0-0.2); Basophils % 0.8 % (0.1-2.0); Eosinophils # 0.2 K/mm3 (0.0-0.4); Eosinophils % 2.3 % (0.1-12.0); Hematocrit 33.9 % (37.0-47.0); Lymphocytes # 1.6 K/mm3 (0.7-4.5); Lymphocytes % 16.4 % (10-50); Mean Corpuscular HGB Conc 33.7 g/dL (31.8-35.4); Mean Corpuscular Hemoglobin 30.9 pg (27.0-31.2); Mean Corpuscular Volume 91.9 fl (81-99); Mean Platelet Volume 7.1 fl (7.4-10.4); Monocytes # 0.5 K/mm3 (0.1-1.0); Neutrophils # 7.1 K/mm3 (1.8-7.8); Neutrophils % 75.5 % (37.0-80.0); Platelet Count 447 K/mm3 (142-424); Red Blood Count 3.69 M/mm3 (4.20-5.40); Red Cell Distribution Width 13.8 % (11.5-17.5); White Blood Count 9.4 K/mm3 (4.8-10.8)
[2020-06-24 05:52] LABS: Hemoglobin 11.4 g/dL (12.2-16.2)
[2020-06-24 06:17] LABS: Chloride 101 mmol/L (98-107); Potassium 3.6 mmoL/L (3.5-5.1); Sodium 138 mmol/L (136-145)
[2020-06-24 06:20] LABS: Anion Gap 13.6 mEq/L (5-15); Blood Urea Nitrogen 14 mg/dl (7-17); Carbon Dioxide 27 mmol/L (22.0-30.0); Creatinine Clearance Estimated 113 mL/min (50-200); Estimated Glomerular Filt Rate 86 ml/min (>60); GFR (African American) 104 ML/MIN (>60)
[2020-06-24 06:21] LABS: Glucose 116 mg/dl (74-100)
--- NOTE | 2020-06-24 08:19 | XR_ITS ---
PROCEDURE: XR ACUTE ABDOMEN SERIES CLINICAL INDICATION: nausea, lower abd pain COMPARISON: No exams were available for comparison FINDINGS: Nonspecific nonobstructive bowel gas pattern. No intestinal obstruction, free air, abnormal calcifications, or acute bony anomalies. There are mild degenerative changes in the lumbar spine and there is a mild amount of retained colonic feces. IMPRESSION: No acute findings. Dictated b Yonatan Sneed MD 06/24/2020 10:28 Yonatan Sneed MD in [facility] 06/24/2020 10:28
--- NOTE | 2020-06-24 08:19 | XR_ITS ---
PROCEDURE: XR CHEST 2V CLINICAL HISTORY: crackles in left lung base COMPARISON: CR XR CHEST 2V from 11/08/2019 CR XR CHEST PORTABLE from 06/12/2020 CR XR CHEST PORTABLE from 06/23/2020 FINDINGS: The cardiomediastinal silhouette and pulmonary vascularity are within normal limits. Increased density is present along the left heart border consistent with a pericardial fat pad similar to the previous exam of 11/08/2019. Coronary artery stent is in place. Degenerative changes thoracic spine IMPRESSION: No acute findings. Dictated b Yonatan Sneed MD 06/24/2020 10:27 Yonatan Sneed MD in [facility] 06/24/2020 10:27
--- NOTE | 2020-06-24 08:21 | HMH.ACPN2 ---
Internal Medicine - PN: Subj *Date: 06/24/20 *Time: 08:21 Interval history: Patient did well overnight after stent placement yesterday. Cardiology notes and catheterization procedure reviewed. However, after breakfast this morning which consisted of finch and eggs patient began to have nausea without vomiting. She also notes some bilateral lower quadrant/pelvic pain that is new since eating. She reports no urine output since 7 PM last night. She denies vomiting, diarrhea, notes that she has passed flatus. Denies chest pain or shortness of air. Denies palpitations. Exam Vital signs and Labs for Last 24 Hours: Temp Pulse Resp BP Pulse Ox 97.8 F 65 16 118/55 L 91 L 06/24/20 08:00 06/24/20 08:00 06/24/20 08:00 06/24/20 08:00 06/24/20 08:00 Laboratory Results - last 24 hr 06/23/20 10:24: WBC 8.4, RBC 3.97 L, Hgb 12.8, Hct 36.2 L, MCV 91.1, MCH 32.1 H, MCHC 35.3, RDW 13.7, Plt Count 484 H, MPV 7.0 L, Neut % (Auto) 69.5, Lymph % (Auto) 20.7, [place] % (Auto) 5.1, Eos % (Auto) 4.0, Baso % (Auto) 0.7, Neut # (Auto) 5.8, Lymph # (Auto) 1.7, [place] # (Auto) 0.4, Eos # (Auto) 0.3, Baso # (Auto) 0.1 06/23/20 10:24: Sodium 138, Potassium 3.3 L, Chloride 99, Carbon Dioxide 28, Anion Gap 14.3, BUN 13, Creatinine 0.70, Estimated Creat Clear 115, Estimated GFR 86, Est GFR ( Amer) 104, Glucose 158 H, Calcium 9.6, Troponin I < 0.01 06/23/20 10:26: SARS-CoV-2 IgG Ab (Rapid) Negative, SARS-CoV-2 IgM Ab (Rapid) Negative 06/23/20 11:55: Activated Clotting Time 366 H* 06/23/20 20:02: Chlamy pneumoniae PCR Not detected, Adenovirus (PCR) Not detected, B. pertussis DNA (PCR) Not detected, Coronavirus OC43 (PCR) Not detected, Coronavirus HKU1 (PCR) Not detected, Coronavirus 229E (PCR) Not detected, COVID-19 PCR Not detected, Coronavirus NL63 (PCR) Not detected, Human Metapneumovir PCR Not detected, Influenza A (H1) PCR Not detected, Influ A (H1N1/09) PCR Not detected, Influenza A (H3) PCR Not detected, Influenza Type A (PCR) Not detected, Influenza Type B (PCR) Not detected, M. pneumoniae (PCR) Not detected, Parainfluenza 1 (PCR) Not detected, Parainfluenza 2 (PCR) Not detected, Parainfluenza 3 (PCR) Not detected, Parainfluenza 4 (PCR) Not detected, RSV (PCR) Not detected, Entero/Rhino (PCR) Not detected 06/24/20 05:30: WBC 9.4, RBC 3.69 L, Hgb 11.4 L D, Hct 33.9 L, MCV 91.9, MCH 30.9, MCHC 33.7, RDW 13.8, Plt Count 447 H, MPV 7.1 L, Neut % (Auto) 75.5, Lymph % (Auto) 16.4, [place] % (Auto) 5.0, Eos % (Auto) 2.3, Baso % (Auto) 0.8, Neut # (Auto) 7.1, Lymph # (Auto) 1.6, [place] # (Auto) 0.5, Eos # (Auto) 0.2, Baso # (Auto) 0.1 06/24/20 05:30: Sodium 138, Potassium 3.6, Chloride 101, Carbon Dioxide 27, Anion Gap 13.6, BUN 14, Creatinine 0.70, Estimated Creat Clear 113, Estimated GFR 86, Est GFR ( Amer) 104, Glucose 116 H D, Calcium 9.0 I & O for Last 24 hours: Intake & Output 06/21/20 06/22/20 06/23/20 06/24/20 11:59 11:59 11:59 11:59 Intake Total Balance Weight 186 lb 182 lb 7 oz - *Routine HEENT Exam Head: Present: normocephalic Eye: Present: EOMI, PERRL ENT: Present: mucous membranes moist - *Routine Neck Exam Present: supple. Absent: lymphadenopathy - *Routine Respiratory Exam Comments: Good air movement, minimal crackles in both bases, especially on the left side. - *Routine Cardiovascular Exam Present: RRR - *Routine Abdominal Exam Present: soft, normoactive bowel sounds, tenderness Comments: Minimal tenderness around the suprapubic area and in the bilateral lower quadrants but no rebound, no guarding. No CVA tenderness. No rash or bruising noted. - *Routine Extremities Exam Absent: cyanosis, clubbing, edema - *Routine Skin Exam Present: warm. Absent: rash - *Routine Neurological Exam Present: alert, oriented X3 Assessment and Plan (1) Unstable angina Current visit: No Status: Resolved Category: Medical Code(s): I20.0 - Unstable angina (2) Chest pain Current vis
--- NOTE | 2020-06-24 09:42 | PC.NURSE ---
Pt down for abdominal x-rays at this time accompanied by Chhaya Campa RN and Odell Bocanegra.
[2020-06-24 09:46] LABS: Microscopic, Urine URINE MICROSCOPIC (MICROSCOPIC)
[2020-06-24 09:47] LABS: Appearance,Urine CLEAR (Clear); Bilirubin,Urine Negative (Negative); Blood, Urine TRACE-I (Negative); Color,Urine YELLOW (Yellow); Glucose,Urine (UA) Negative (Negative); Ketones,Urine Negative (Negative); Leukocyte Esterase,Urine Negative (Negative); Nitrate,Urine Negative (Negative); Protein,Urine Negative (Negative); Urobilinogen,Urine 0.2 EU/dl (0.2)
--- NOTE | 2020-06-24 15:06 | PC.NURSE ---
AO*4, PT HAS RESTED COMFORTABLY T/O SHIFT. TOLERATED RA WELL WITH O2 SATS >95%. NO C/O SOA OR PAIN T/O SHIFT. PT ATENOLOL DECREASED TO 25 MG. NO ADVERSE EFFECTS NOTED. PT HAS DENIED HEADACHE T/O SHIFT. NSR ON TELEMETRY, HR >60 T/O SHIFT. PT HAS BEEN AMBULATING TO RR INDEPENDENTLY. LUNG SOUNDS CLEAR BILATERALLY, NO NEEDS AT THIS TIME, VSS, WILL CONTINUE TO MONITOR
--- NOTE | 2020-06-24 18:24 | PC.NURSE ---
PHYSICIAN STATED IT WAS OKAY FOR PT TO BE TRANSFERRED OUT OF STEP DOWN.
--- NOTE | 2020-06-24 18:30 | PC.NURSE ---
Spoke with Leeroy to move pt out of stepdown
[2020-06-25] VITALS: BP 112/51; PULSE 70; PULSE 73; RESP 16; TEMP 37.5; O2SAT 96
[2020-06-25 04:00] VITALS: BP 125/53; PULSE 70; PULSE 76; RESP 16; TEMP 37.1; O2SAT 97
[2020-06-25 06:22] LABS: Chloride 100 mmol/L (98-107)
[2020-06-25 06:23] LABS: Basophils # 0.1 K/mm3 (0-0.2); Basophils % 0.6 % (0.1-2.0); Eosinophils # 0.3 K/mm3 (0.0-0.4); Eosinophils % 3.1 % (0.1-12.0); Hematocrit 32.5 % (37.0-47.0); Hemoglobin 11.2 g/dL (12.2-16.2); Lymphocytes % 22.7 % (10-50); Mean Corpuscular HGB Conc 34.3 g/dL (31.8-35.4); Mean Corpuscular Hemoglobin 31.1 pg (27.0-31.2); Mean Corpuscular Volume 90.6 fl (81-99); Mean Platelet Volume 7.2 fl (7.4-10.4); Monocytes # 0.5 K/mm3 (0.1-1.0); Monocytes % 5.3 % (1.7-9.3); Neutrophils % 68.3 % (37.0-80.0); Platelet Count 417 K/mm3 (142-424); Potassium 3.7 mmoL/L (3.5-5.1); Red Blood Count 3.59 M/mm3 (4.20-5.40); Red Cell Distribution Width 13.7 % (11.5-17.5); Sodium 137 mmol/L (136-145); White Blood Count 8.8 K/mm3 (4.8-10.8)
[2020-06-25 06:25] LABS: Alanine Aminotransferase 18 U/L (12-78); Alkaline Phosphatase 69 U/L (38-126); Aspartate Amino Transferase 24 U/L (14-36); Bilirubin,Total 0.4 mg/dl (0.2-1.3); Blood Urea Nitrogen 16 mg/dl (7-17); Creatinine Clearance Estimated 99 mL/min (50-200); Estimated Glomerular Filt Rate 73 ml/min (>60); GFR (African American) 89 ML/MIN (>60)
[2020-06-25 06:26] LABS: Albumin Level 3.6 g/dl (3.5-5.0); Albumin/Globulin Ratio 1.2 (1.1-1.8); Anion Gap 11.7 mEq/L (5-15); Calcium 9.2 mg/dl (8.4-10.2); Carbon Dioxide 29 mmol/L (22.0-30.0); Globulin 3.1 g/dL (1.3-3.2); Glucose 123 mg/dl (74-100); Total Protein,Serum 6.7 g/dl (6.3-8.2)
[2020-06-25 08:00] VITALS: BP 143/71; PULSE 70; PULSE 75; RESP 16; TEMP 36.7; O2SAT 99
--- NOTE | 2020-06-25 08:21 | PC.NURSE ---
PT WAS HAVING A DIFFICULT TIME GETTING HER BOWELS TO MOVE THIS MORNING. PT WAS OFFERED SOME WARM PRUNE JUICE AND LATER STATED SHE HAD A LARGE BOWEL MOVEMENT. PT STATED AT HOME SHE USUALLY TAKES MIRALAX FOR HER BOWELS BUT STATES IT HAS NOT REALLY BEEN WORKING FOR HER. WILL NOTIFY PHYSICIAN DURING ROUNDS ABOUT PT REQUESTING SOMETHING DIFFERENT TO TAKE AT HOME TO HELP WITH MORE REGULAR BOWEL MOVEMENTS.
--- NOTE | 2020-06-25 08:56 | HMH.DCSUM ---
General - General Admission date:: 06/24/20 Discharge date: 06/25/20 HPI HPI: 10-year-old white female with history as noted above with recent stenting to left main and LAD last week presented to the emergency department this morning after 2 hours of jaw and neck discomfort. Some mild chest pain also associated with this. No recent fever, chills, nausea, vomiting or diarrhea. Patient was at home doing nothing exertional when symptoms onset this a.m. She contacted her who brought her to the ER for further evaluation. EKG on admission shows normal sinus rhythm with no acute ST segment changes. Initial troponin is pending. Patient was given a sublingual nitroglycerin in the ER with improvement in symptoms initially but then related a heaviness in the chest. During this time her blood pressure dropped approximately 30 points systolically. She did note some nausea and was given Zofran for this. After discussion with Dr. Goode decision was made to take the patient to the [facility] for repeat cardiac catheterization. Findings were as follows: ANGIOGRAPHIC RESULTS The left main artery Has an ostial 20% stenosis followed by a stent. Distally there is a 40 to 50% stenosis The left anterior descending artery Has an ostial 50% stenosis followed by a widely patent stent The circumflex artery There is rise to a ramus intermedius which has proximal 20% stenosis followed by mid vessel 30 to 40% stenosis. The circumflex artery is a large vessel and has haziness in his ostial proximal segment which later proved to be a dissection. Following stenting this vessel was widely patent The right coronary artery Is a dominant vessel and has proximal and mid vessel 30% stenoses. Distally there are 20 and 30% stenoses The PINTO ventriculogram reveals 65% The left ventricular end-diastolic pressure 10 mmHg IMPRESSION Coronary disease as described above Revascularization of the entire left main artery using 2 drug-eluting stents Revascularization of the ostial proximal LAD as described above with a single drug-eluting stent Revascularization of the ostial circumflex artery with single drug-eluting stent Normal ejection fraction Normal left ventricular end-diastolic pressure Hospital Course Hospital Course: Patient was admitted given subjected to left heart cath as noted and HPI. She did well with this, and the following morning was feeling better but had some lower abdominal pain, some dysuria and nausea. She was treated with Zofran, chest x-ray, abdominal x-ray and urinalysis were performed showing no diagnostic findings, the patient felt better with a couple of meals of clear liquids and then was transitioned back to cardiac diet. Over night last night she did well, and this morning she feels great. Exam normalized, she will be discharged home with instructions and follow-up as noted. Of note given her relative bradycardia in the hospital she will be transition to 25 mg of atenolol daily and follow-up with her primary physician and cardiology as noted. Objective Vital signs: Temp Pulse Resp BP Pulse Ox 98.7 F 70 16 125/53 L 97 06/25/20 04:00 06/25/20 08:00 06/25/20 04:00 06/25/20 04:00 06/25/20 04:00 no acute distress - *Routine HEENT Exam Head: Present: normocephalic Eye: Present: EOMI, PERRL ENT: Present: mucous membranes moist - *Routine Neck Exam Present: supple - *Routine Respiratory Exam Present: CTA bilaterally - *Routine Cardiovascular Exam Present: RRR - *Routine Abdominal Exam Present: soft, normoactive bowel sounds. Absent: tenderness - *Routine Extremities Exam Absent: cyanosis, clubbing, edema - *Routine Skin Exam Present: warm. Absent: rash - Detailed Eye Exam Eyelids: Bilateral normal inspection Results Labs on day of discharge: Labs from last 24 hours 06/25/20 06/25/20 06/24/20 05:35 05:35 09:30 WBC 8.8 RBC 3.59 L Hgb 11.2 L Hct 3
--- NOTE | 2020-06-25 09:37 | HMH.PHACLD ---
Shruthi Giles has received discharge medication counseling on the following medications: PATIENT IS ALREADY TAKING ASPIRIN 81 MG DAILY, ATENTOLOL 25 MG DAILY, ATORVASTATIN 40 MG DAILY, LOSARTAN 100 MG, AND BRILINTA 90 MG BID.
== END 2020-06-25 10:27 | disposition home or self-care (01) ==
LOC: ER 11:28 → CATHLAB 12:02 → 2ND 13:08
PROVIDERS: Internal Medicine Adolescent Medicine; Admitting Provider Family Medicine; Emergency Provider Emergency Medicine; PCP Family Medicine; Referring Provider Internal Medicine; Visit Provider Family Medicine
DX: I25.110 Atherosclerotic heart disease of native coronary artery with unstable angina pectoris (principal); I10 Essential (primary) hypertension; E03.9 Hypothyroidism, unspecified; Z95.5 Presence of coronary angioplasty implant and graft; E78.5 Hyperlipidemia, unspecified; Z88.8 Allergy status to other drugs, medicaments and biological substances; Z79.01 Long term (current) use of anticoagulants; Z79.82 Long term (current) use of aspirin; Z79.899 Other long term (current) drug therapy; I77.79 Dissection of other specified artery
CPT/HCPCS: 36415; 71045; 71046; 74021; 80048; 80053; 81001; 84484; 85025; 85347; 86328; 87086; 87581; 87633; 87798; 92928; 92978; 92979; 93005; 93458; 94761; 96374; 99152; 99153; 99284; C1725; C1769; C1876; C9600; G0378; J1644; J2405; Q9967

== ENCOUNTER → 2020-07-05 10:11 | Outpatient (CLI) | payer OTHER, SELFPAY ==
--- NOTE | 2020-07-05 10:14 | CA_ITS ---
APPROVED REPORT Right Upper Extremity Venous Study for DVT. Financial Aid Counselor: Cecy Kevin RVT Indications Upper Extremity Pain: Right CAD Pt has a bruise mid lateral upper arm x several days, pt has had 2 heart cath's in 3 wks Risk Factors Cardiac Disease Medications Pt on Brilinta and baby ASA Vein Imaging IJV (R): Normal phasic flow is seen. Normal flow, augmentation and compression is seen. No evidence of Deep Vein Thrombosis. No abnormalities are demonstrated. SCV (R): Normal phasic flow is seen. Normal flow, augmentation and compression is seen. No evidence of Deep Vein Thrombosis. No abnormalities are demonstrated. Axillary (R): Normal phasic flow is seen. Normal flow, augmentation and compression is seen. No evidence of Deep Vein Thrombosis. No abnormalities are demonstrated. Brachial (R): Normal phasic flow is seen. Normal flow, augmentation and compression is seen. No evidence of Deep Vein Thrombosis. No abnormalities are demonstrated. Basilic (R): Compressible Cephalic (R): Compressible Radial (R): Compressible Ulnar (R): Compressible Findings Study suggests no evidence of DVT of the right upper extremity. Study suggests no evidence of SVT of the right upper extremity. 2.4 cm hematoma seen in area of pt complaint/bruising right upper arm. Conclusion Study suggests no evidence of DVT of the right upper extremity. Study suggests no evidence of SVT of the right upper extremity. 2.4 cm hematoma seen in area of pt complaint/bruising right upper arm. Electronically signed by : Yonatan Sneed MD 07/05/2020 17:33:49
== END ==
PROVIDERS: PCP Family Medicine; Visit Provider Nurse Practitioner Family
DX: R60.0 Localized edema (principal)
CPT/HCPCS: 93971

== ENCOUNTER → 2020-08-29 09:49 | Outpatient (CLI) | payer OTHER, SELFPAY | PROVIDERS: Visit Provider Nurse Practitioner Family | DX: Z03.818 Encounter for observation for suspected exposure to other biological agents ruled out (principal) | CPT/HCPCS: U0003 ==

== ENCOUNTER 2020-10-20 08:42 | Observation (INO) | payer OTHER, SELFPAY ==
[2020-10-20] VITALS (14 sets, daily range): BP systolic 115–188; BP diastolic 50–95; PULSE 53–83; RESP 14–17; TEMP 36.6–36.8; O2SAT 96–100; BMI 33.8; BMI 33.5
--- NOTE | 2020-10-20 08:39 | ECG_ITS ---
APPROVED REPORT Exam: Resting ECG HR:78 bpm ECG Measurements Heart Rate 78 AXES ID 176 P 52 QRSd 94 QRS 7 QT 368 T 54 QTc 419 Conclusion Normal sinus rhythm Nonspecific ST and T wave abnormality Abnormal ECG Electronically signed by : Harpreet Cole, 10/22/2020 20:00:43
--- NOTE | 2020-10-20 08:47 | XR_ITS ---
PROCEDURE: XR CHEST PORTABLE CLINICAL HISTORY: cough COMPARISON: CR XR CHEST PORTABLE from 06/12/2020 CR XR CHEST PORTABLE from 06/23/2020 CR XR CHEST 2V from 06/24/2020 FINDINGS: The cardiomediastinal silhouette and pulmonary vascularity are within normal limits. The lungs are clear without infiltrates, suspicious nodules, or pleural effusions. No acute bony abnormalities. IMPRESSION: No acute findings. Dictated by: Yonatan Sneed MD 10/20/2020 10:18 Yonatan Sneed MD in [facility] 10/20/2020 10:18
--- NOTE | 2020-10-20 08:48 | CT_ITS ---
PROCEDURE: CT HEAD/BRAIN WO CON CLINICAL INDICATION: weakness Left-sided weakness COMPARISON: CT CT HEAD/BRAIN WO CON from 06/12/2020 TECHNIQUE: Axial images obtained. All CT scans at the facility use one or more dose reduction, viz: automated exposure control, ma/kV adjustment per patient size (including targeted exams where dose is matched to indication, i.e. head), or iterative reconstruction technique. FINDINGS: No midline shift, mass effect, intracranial hemorrhage, hydrocephalus, or extra-axial fluid collection is evident. There is a small sub insular hypodensity on the right suggesting an old small lacunar infarction which has developed since 06/12/2020. The calvarium has an unremarkable appearance. No mastoid effusion. There is mild paranasal sinus mucosal thickening IMPRESSION: 1. No acute intracranial findings. 2. Old lacunar infarction in the subinsular region on the right which has developed since 06/12/2020 Dictated by: Yonatan Sneed MD 10/20/2020 09:16 Yonatan Sneed MD in [facility] 10/20/2020 09:16
--- NOTE | 2020-10-20 08:54 | HMH.EDWEAK ---
ED Disposition Clinical Impression: Chest pain, moderate coronary artery risk Disposition: Admitted As Inpatient Condition on Discharge: Fair - Critical Care Critical Care Time: No Attestation: On , the high probability of a clinically significant, sudden or life threatening deterioration of the following system(s) required my full and direct attention, intervention and personal management. The time I documented below is in addition to time spent performing reported procedures but includes the following listed in this critical care notation. Medical Decision Making - Medical Records Medical records reviewed: Yes: I reviewed the patient's medical records. - Alexi Inquiry Pt receiving controlled substance: No Vital Signs: 10/20/20 08:44 10/20/20 08:50 10/20/20 09:28 Temperature 97.9 F Temperature Source Oral Pulse Rate [Right Radial] 83 78 66 Respiratory Rate 17 Blood Pressure [Right Arm] 188/95 H 138/67 144/65 H Blood Pressure Mean [Right Arm] 126 90 91 Blood Pressure Source [Right Arm] Automatic Cuff Automatic Cuff Blood Pressure Position [Right Arm] Sitting Sitting 02 Sat by Pulse Oximetry 98 97 99 Oxygen Delivery Method Room Air Room Air Room Air 10/20/20 09:45 10/20/20 10:05 10/20/20 10:34 Temperature Temperature Source Pulse Rate [Right Radial] 66 59 L 58 L Respiratory Rate Blood Pressure [Right Arm] 144/65 H 134/58 L 154/61 H Blood Pressure Mean [Right Arm] 91 83 92 Blood Pressure Source [Right Arm] Automatic Cuff Automatic Cuff Automatic Cuff Blood Pressure Position [Right Arm] Sitting Sitting Sitting 02 Sat by Pulse Oximetry 98 98 98 Oxygen Delivery Method Room Air Room Air Room Air - Lab Data Lab Results 10/20/20 08:42: WBC 6.7, RBC 4.16 L, Hgb 12.6, Hct 39.1, MCV 94.1, MCH 30.4, MCHC 32.3, RDW 14.0, Plt Count 404, MPV 8.0, Neut % (Auto) 74.4, Lymph % (Auto) 17.4, [place] % (Auto) 5.0, Eos % (Auto) 2.5, Baso % (Auto) 0.7, Neut # (Auto) 4.9, Lymph # (Auto) 1.2, [place] # (Auto) 0.3, Eos # (Auto) 0.2, Baso # (Auto) 0.0 10/20/20 08:42: PT 10.9, INR 0.98, APTT 23.4 L 10/20/20 08:42: Sodium 137, Potassium 3.1 L, Chloride 101, Carbon Dioxide 27, Anion Gap 12.1, BUN 15, Creatinine 0.80, Estimated Creat Clear 100, Estimated GFR 73, Est GFR ( Amer) 89, Glucose 204 H, Calcium 9.5, Total Bilirubin 0.6, AST 31, ALT 26, Alkaline Phosphatase 93, Troponin I < 0.01, NT-Pro-B Natriuret Pep 112, Total Protein 7.6, Albumin 4.4, Globulin 3.2, Albumin/Globulin Ratio 1.4, Lipase 191 Result diagrams: 10/20/20 08:42 10/20/20 08:42 Orders (Tests/Meds): ED MEDICATIONS Generic Name Dose Route Start Last Admin Trade Name Freq PRN Reason Stop Dose Admin Isosorbide Mononitrate 30 mg 10/20/20 10:45 Isosorbide Mitchell 30mg Tab.Er.24h PO 11/19/20 10:44 DAILY KIRAN Ranolazine 500 mg 10/20/20 10:45 Ranolazine 500mg Er Tablet PO 11/19/20 10:44 BID KIRAN ORDERS Category Date Time Status Covid-19 IgG/IgM ([facility]) Stat Lab 10/20/20 10:51 Ordered Troponin I Q3H Lab 10/20/20 12:00 Ordered Troponin I Q3H Lab 10/20/20 15:00 Ordered Blood Culture Stat Micro 10/20/20 08:59 Received - Radiology Data #1 Image(s): Chest Image Reviewed: Yes I reviewed the patient's radiology results, Yes I reviewed the patient's radiology image, Yes I have reviewed radiologist's interpretation Preliminary Findings: Normal/NAD - CT Data CT Scan: Head Time Received: 10:[address] Reviewed: Yes: I have reviewed the patient's CT results, I have viewed the radiologist's interpretation Findings Narrative: IMPRESSION: 1. No acute intracranial findings. 2. Old lacunar infarction in the subinsular region on the right which has developed since 06/12/2020 - ECG Data Tracing #1 Normal ventricular rate of 78 bpm, AR interval 176 ms, normal QTC. Normal sinus rhythm with nonspecific changes ECG initial impression date: 10/20/20 ECG initial impression time: 08:42 - Reevaluation
--- NOTE | 2020-10-20 09:01 | PC.NURSE ---
Patient going to radiology
--- NOTE | 2020-10-20 09:14 | PC.NURSE ---
Patient returning from radiology
--- NOTE | 2020-10-20 09:15 | PC.NURSE ---
Pt returned from rad.
[2020-10-20 09:18] LABS: Basophils % 0.7 % (0.1-2.0); Eosinophils # 0.2 K/mm3 (0.0-0.4); Eosinophils % 2.5 % (0.1-12.0); Hematocrit 39.1 % (37.0-47.0); Hemoglobin 12.6 g/dL (12.2-16.2); Lymphocytes # 1.2 K/mm3 (0.7-4.5); Lymphocytes % 17.4 % (10-50); Mean Corpuscular HGB Conc 32.3 g/dL (31.8-35.4); Mean Corpuscular Hemoglobin 30.4 pg (27.0-31.2); Mean Corpuscular Volume 94.1 fl (81-99); Monocytes # 0.3 K/mm3 (0.1-1.0); Neutrophils # 4.9 K/mm3 (1.8-7.8); Neutrophils % 74.4 % (37.0-80.0); Platelet Count 404 K/mm3 (142-424); Red Blood Count 4.16 M/mm3 (4.20-5.40); White Blood Count 6.7 K/mm3 (4.8-10.8)
[2020-10-20 09:25] LABS: Chloride 101 mmol/L (98-107); Sodium 137 mmol/L (136-145)
[2020-10-20 09:26] LABS: Potassium 3.1 mmoL/L (3.5-5.1)
[2020-10-20 09:28] LABS: Alanine Aminotransferase 26 U/L (12-78); Alkaline Phosphatase 93 U/L (38-126); Anion Gap 12.1 mEq/L (5-15); Aspartate Amino Transferase 31 U/L (14-36); Bilirubin,Total 0.6 mg/dl (0.2-1.3); Blood Urea Nitrogen 15 mg/dl (7-17); Carbon Dioxide 27 mmol/L (22.0-30.0); Creatinine Clearance Estimated 100 mL/min (50-200); Estimated Glomerular Filt Rate 73 ml/min (>60); GFR (African American) 89 ML/MIN (>60)
[2020-10-20 09:29] LABS: Albumin Level 4.4 g/dl (3.5-5.0); Albumin/Globulin Ratio 1.4 (1.1-1.8); Calcium 9.5 mg/dl (8.4-10.2); Globulin 3.2 g/dL (1.3-3.2); Glucose 204 mg/dl (74-100); Lipase 191 U/L (23-300); Total Protein,Serum 7.6 g/dl (6.3-8.2)
[2020-10-20 09:38] LABS: NT Pro Brain Natriuretic Pep. 112 pg/mL (0-125)
[2020-10-20 09:39] LABS: Activated Partial Thrombo Time 23.4 seconds (23.6-34.0); INR 0.98 (0.9-1.1); Prothrombin Time 10.9 seconds (9.4-11.8)
[2020-10-20 09:41] LABS: Troponin I < 0.01 ng/ml (0.00-0.034)
--- NOTE | 2020-10-20 09:59 | PC.NURSE ---
Called for Willem Clark to come see pt, he is making rounds and will be coming to dept as soon as he is finished.
--- NOTE | 2020-10-20 10:06 | PC.NURSE ---
Willem Clark returned call.
--- NOTE | 2020-10-20 10:23 | PC.NURSE ---
Willem Clark at bedside
--- NOTE | 2020-10-20 10:46 | PC.NURSE ---
Dr. Rodriguez speaking with Dr. Chahal.
--- NOTE | 2020-10-20 10:46 | HMH.CNCARD ---
History of Present Illness Consult date: 10/20/20 Requesting physician: Jamie Chahal Consult reason: chest pain Chief complaint: chest pain Additional Medical History:: 1. HTN A. Echo, 11/2019, 1. Biatrial enlargement, normal left ventricular size, mild concentric left ventricular hypertrophy, visually estimated ejection fraction 55% with no regional wall motion abnormality, grade 1 diastolic dysfunction seen without tissue Doppler evidence of raise left atrial pressure. 2. Mildly enlarged right ventricle with normal contractility. 3. Mild mitral and tricuspid regurgitation. 4. No significant pericardial effusion noted. 2. CAD A. Lexiscan myoview, 11/2019, No ischemia with LVEF of 65% B. UAP, 06/13/2020, [facility]:ANGIOGRAPHIC RESULTS The left main artery Has an ostial 50% stenosis The left anterior descending artery Has a severe proximal greater than 70% stenosis The circumflex artery Gives rise to a moderate size ramus intermedius which has mild proximal 10 to 20% stenosis. The circumflex artery itself has mild luminal irregularities approximately 10% severity The right coronary artery Is a dominant vessel and has proximal to mid vessel 20 to 30% stenoses as well as a 20% stenosis in the proximal large posterior lateral branch The PINTO ventriculogram reveals Normal 65% The left ventricular end-diastolic pressure 15 mmHg IMPRESSION Coronary artery disease as described above Successful stenting of the ostial left main artery severe disease reduced to 0% with one drug-eluting stent Successful stenting of the proximal LAD severe disease reduced to 0% with one drug-eluting stent Normal ejection fraction Mildly elevated LVEDP PLAN 1. Brilinta 90 mg twice daily plus aspirin 81 mg daily 2. LDL less than 55 3. Cardiac rehabilitation 4. Aggressive risk factor modification using guideline mediated therapy 5. Avoidance of all tobacco products C. Recurrent chest pain, 06/23/2020, [facility] results:ANGIOGRAPHIC RESULTS The left main artery Has an ostial 20% stenosis followed by a stent. Distally there is a 40 to 50% stenosis The left anterior descending artery Has an ostial 50% stenosis followed by a widely patent stent The circumflex artery There is rise to a ramus intermedius which has proximal 20% stenosis followed by mid vessel 30 to 40% stenosis. The circumflex artery is a large vessel and has haziness in his ostial proximal segment which later proved to be a dissection. Following stenting this vessel was widely patent The right coronary artery Is a dominant vessel and has proximal and mid vessel 30% stenoses. Distally there are 20 and 30% stenoses The PINTO ventriculogram reveals 65% The left ventricular end-diastolic pressure 10 mmHg IMPRESSION Coronary disease as described above Revascularization of the entire left main artery using 2 drug-eluting stents Revascularization of the ostial proximal LAD as described above with a single drug-eluting stent Revascularization of the ostial circumflex artery with single drug-eluting stent Normal ejection fraction Normal left ventricular end-diastolic pressure 3. Hypothyroidism, on replacement 4. History of syncope A. positive Tilt table test, 2016 with near syncope, elevated HR of 145 bpm with drop in systolic BP into the low 60's mm Hg B. MRI of head, 2016, negative for acute process 5. Family history of heart disease in her father and brother History of present illness: 60-year-old female presented to the emergency department with generalized weakness. Patient originally had the symptoms last night. She states that she just did not feel well. She is having some intermittent chest discomfort as well as some lightheadedness. She woke up this morning and her symptoms persisted. She got concerned that she was having a stroke and presented to the emergency department. The patient is not having any focal weakness or change in vision
[2020-10-20 11:26] LABS: Coronavirus 19 IgG Antibody Negative (Negative); Coronavirus 19 IgM Antibody Negative (Negative)
[2020-10-20 12:04] LABS: Troponin I < 0.01 ng/ml (0.00-0.034)
--- NOTE | 2020-10-20 12:06 | HMH.PHAVTE ---
[facility] Pharmacy VTE Monitoring - Patient Demographics Admission date: 10/20/20 Report Date: 10/20/20 Time: 12:06 Allergies/Adverse Reactions: Patient Allergies dexamethasone [DEXAMETHASONE] Allergy (Unknown, Verified 10/20/20 08:49) triamcinolone [From [facility]NALOG] Allergy (Unknown, Verified 10/20/20 08:49) Height: 1.57 m Weight: 83.915 kg Patient Problems: Current Active Problems Atypical chest pain (Acute) Hypertension (Chronic) Coronary artery disease (Chronic) HLD (hyperlipidemia) (Chronic) Stented coronary artery (Acute) Chest pain, moderate coronary artery risk (Acute) Fatigue (Acute) - VTE Risk Labs: VTE Related Lab Results Hgb 12.6 g/dL (12.2-16.2) 10/20/20 08:42 Hct 39.1 % (37.0-47.0) 10/20/20 08:42 Plt Count 404 K/mm3 (142-424) 10/20/20 08:42 PT 10.9 seconds (9.4-11.8) 10/20/20 08:42 INR 0.98 (0.9-1.1) 10/20/20 08:42 APTT 23.4 seconds (23.6-34.0) L 10/20/20 08:42 BUN 15 mg/dl (7-17) 10/20/20 08:42 Creatinine 0.80 mg/dl (0.52-1.04) 10/20/20 08:42 Estimated Creat Clear 100 mL/min (50-200) 10/20/20 08:42 - Prophylaxis VTE Prophylaxis Ordered?: Yes Types of VTE Prophylaxis: TEDS Knee High Location of Applied Device: Bilateral Lower Extremeties
--- NOTE | 2020-10-20 12:12 | HMH.PHAINT ---
Medication reconciliation completed using pharmacy claims data and medication list from physician office.
--- NOTE | 2020-10-20 12:13 | HMH.HP ---
*Admission Date: 10/20/20 <AustinjeffreyZeinab - 10/20/20 12:20> *Chief complaint: chest pain <Zeinab Lechuga - 10/20/20 12:20> *History of present illness: 60-year-old female presented to the emergency department with generalized weakness. Patient originally had the symptoms last night. She states that she just did not feel well. She is having some intermittent chest discomfort as well as some lightheadedness. She woke up this morning and her symptoms persisted. She got concerned that she was having a stroke and presented to the emergency department. The patient is not having any focal weakness or change in vision. There is no slurred speech. She denies any headache. She states that she just feels generally weak all over. She is also having some mild dull chest discomfort. Nonradiating. Has been persistent since she woke this morning. The patient does have a history of CAD with cardiac catheterization and stenting. She denies any associated shortness of breath or palpitations. No abdominal pain or vomiting. No diarrhea. (The above per Dr. Sawant) She was seen in consultation by cardiology and also has complained of some perioral numbness in the area where she previously had jaw pain prior to her most recent stenting in June 2020. She states she has been compliant with her medications. The numbess does extend into her chest but at this time has resolved. She still feels weak. Her states she was unable to walk to the car this am. Her troponins have been normal and her EKG has been normal as well. She will be admitted for serial enzymes to r/o and MD. <Zeinab Lechuga - 10/20/20 14:09> [facility] History I have reviewed the patient's past medical history: Yes <Zeinab Lechuga - 10/20/20 12:20> Medical History: Reports:: Coronary Artery Disease, Gastroesophageal Reflux Disease(GERD), Hyperlipidemia, Hypertension Denies:: Cancer, Diabetes Mellitus Type 1, Diabetes Mellitus Type 2, MRSA <Zeinab Lechuga - 10/20/20 12:20> *Have you ever received a pneumonia vaccine?: No <Zeinab Lechuga 10/20/20 12:20> *Have you received a flu vaccine this season?: Yes <Zeinab Lechuga - 12/04/20 12:20> Other Medical History: Reports: Hypothyroidism, Other (Allergies, RLS) <Jan Lechugaa 10/20/20 12:20> Other Surgeries: Yes: Cardiac Catheterization, Colonoscopy, Coronary Stent, , Hysterectomy-Partial, Other <Zeinab Lechuga 10/20/20 12:20> Amputation: No <Zeinab Lechuga 10/20/20 12:20> Fractures: No <AlexandreaZeinab 10/20/20 12:20> - *Social History Smoking Status: Never smoker <Zeinab Lechuga 10/20/20 12:20> Alcohol Intake: never <Zeinab Lechuga 10/20/20 12:20> *Occupational Status:: employed <Zeinab Lechuga 10/20/20 12:20> Housing: house <AlexandreaZeinab 10/20/20 12:20> Household Members: spouse <AlexandreaZeinab 10/20/20 12:20> *Travel in the last 8 weeks: [facility]> Family Hx:: Diabetes, Heart Attack, Hyperlipidemia, Hypertension <Jan Lechugaa 10/20/20 12:20> Review of Systems - Constitutional Reports fatigue, Reports weakness, Denies chills, Denies fever(s) <AlexandreaZeinab 10/20/20 14:09> - Eyes Denies blurry vision, Denies double vision [facility] 10/20/20 14:09> - ENT Reports nasal congestion, Denies sore throat [facility] 10/20/20 14:09> - *Cardiovascular Reports chest pain, Denies shortness of breath [facility] 10/20/20 14:09> - *Respiratory Denies chest congestion, Denies cough, Denies shortness of breath <[facility] 10/20/20 14:09> - *Gastrointestinal Reports constipation, Denies abdominal pain, Denies loose stools, Denies nausea, Denies vomiting <Zeinab Lechuga 10/20/20 14:09> - *Genitourinary Reports painful urination (started on Friday), Denies difficulty urinating <Zeinab Lechuga 10/20/20 14:09> - *Musculoskeletal Reports muscle weakness, Denies joint pain <Zeinab Lechuga - 10/20/20 14:09> - *Neurologic Reports headache(
[2020-10-20 15:24] LABS: Reflex Lactic Add Lactic Reflex
[2020-10-20 16:22] LABS: Lactic Acid Follow Up (RFLX 1) 2.5 mmol/L (0.7-2.1)
[2020-10-20 16:36] LABS: Microscopic, Urine URINE MICROSCOPIC (MICROSCOPIC)
[2020-10-20 16:42] LABS: Appearance,Urine CLEAR (Clear); Bilirubin,Urine Negative (Negative); Blood, Urine TRACE-I (Negative); Color,Urine YELLOW (Yellow); Glucose,Urine (UA) Negative (Negative); Ketones,Urine Negative (Negative); Leukocyte Esterase,Urine Negative (Negative); Nitrate,Urine Negative (Negative); PH,Urine 6.5 (5.0-8.5); Protein,Urine Negative (Negative); Urobilinogen,Urine 0.2 EU/dl (0.2)
[2020-10-20 17:08] LABS: POC Glucose,Bedside 144 (70-110)
[2020-10-20 17:44] LABS: Bacteria,Urine 1+ /lpf; Squamous Epithelial Cell,Urine Occasional #/hpf (0-5)
[2020-10-20 17:54] LABS: Troponin I < 0.01 ng/ml (0.00-0.034)
[2020-10-20 18:00] LABS: Reflex Lactic (2 hrs) Add Lactic Reflex
[2020-10-20 19:37] LABS: Lactic Acid Follow up (RFLX 2) 1.4 mmol/L (0.7-2.1)
[2020-10-20 22:23] LABS: POC Glucose,Bedside 120 (70-110)
[2020-10-21] VITALS: BP 116/49; PULSE 116; PULSE 65; RESP 16; TEMP 36.9; O2SAT 95
[2020-10-21 03:26] VITALS: BP 125/55; PULSE 68; RESP 14; TEMP 36.6; O2SAT 98
[2020-10-21 04:00] VITALS: PULSE 60
--- NOTE | 2020-10-21 06:37 | PC.NURSE ---
pt has rested most of the shift, no complaints of SOA or chest pain, ekg monitor tech shows NSR, HR 68-70, remains on room air with sats 95-98%systolic BP 116-131
[2020-10-21 06:48] LABS: POC Glucose,Bedside 116 (70-110)
[2020-10-21 08:00] VITALS: BP 134/59; PULSE 50; PULSE 63; RESP 17; TEMP 36.6; O2SAT 96
--- NOTE | 2020-10-21 08:44 | HMH.ACPN2 ---
Internal Medicine - PN: Fitz *Date: 10/21/20 *Time: 09:01 Interval history: Patient with no new complaints today, anxious to go home, no chest pain overnight. Exam Vital signs and Labs for Last 24 Hours: Temp Pulse Resp BP Pulse Ox 97.9 F 60 14 125/55 L 98 10/21/20 03:26 10/21/20 04:00 10/21/20 03:26 10/21/20 03:26 10/21/20 03:26 Laboratory Results - last 24 hr 10/20/20 08:42: WBC 6.7, RBC 4.16 L, Hgb 12.6, Hct 39.1, MCV 94.1, MCH 30.4, MCHC 32.3, RDW 14.0, Plt Count 404, MPV 8.0, Neut % (Auto) 74.4, Lymph % (Auto) 17.4, [place] % (Auto) 5.0, Eos % (Auto) 2.5, Baso % (Auto) 0.7, Neut # (Auto) 4.9, Lymph # (Auto) 1.2, [place] # (Auto) 0.3, Eos # (Auto) 0.2, Baso # (Auto) 0.0 10/20/20 08:42: PT 10.9, INR 0.98, APTT 23.4 L 10/20/20 08:42: Sodium 137, Potassium 3.1 L, Chloride 101, Carbon Dioxide 27, Anion Gap 12.1, BUN 15, Creatinine 0.80, Estimated Creat Clear 100, Estimated GFR 73, Est GFR ( Amer) 89, Glucose 204 H, Calcium 9.5, Total Bilirubin 0.6, AST 31, ALT 26, Alkaline Phosphatase 93, Troponin I < 0.01, NT-Pro-B Natriuret Pep 112, Total Protein 7.6, Albumin 4.4, Globulin 3.2, Albumin/Globulin Ratio 1.4, Lipase 191 10/20/20 08:42: SARS-CoV-2 IgG Ab (Rapid) Negative, SARS-CoV-2 IgM Ab (Rapid) Negative 10/20/20 08:50: Lactate 3.0 H 10/20/20 11:35: Troponin I < 0.01 10/20/20 15:35: Lactate 2.5 H 10/20/20 16:29: Urine Color Yellow, Urine Appearance Clear, Urine pH 6.5, Ur Specific [place] 1.010, Urine Protein Negative, Urine Glucose (UA) Negative, Urine Ketones Negative, Urine Blood Trace-i, Urine Nitrate Negative, Urine Bilirubin Negative, Urine Urobilinogen 0.2, Ur Leukocyte Esterase Negative, Urine RBC None, Urine WBC 5-10, Ur Squamous Epith Cells Occasional, Urine Bacteria 1+ 10/20/20 16:31: POC Glucose 144 H 10/20/20 16:47: Troponin I < 0.01 10/20/20 19:15: Lactate 1.4 10/20/20 22:15: POC Glucose 120 H 10/21/20 06:26: POC Glucose 116 H Vital Signs - 24 hr 10/20/20 08:50 10/20/20 09:28 10/20/20 09:45 Temperature Pulse Rate Pulse Rate [Apical] Pulse Rate [Right Radial] 78 66 66 Respiratory Rate Blood Pressure Blood Pressure [Right Arm] 138/67 144/65 H 144/65 H 02 Sat by Pulse Oximetry 97 99 98 10/20/20 10:05 10/20/20 10:34 10/20/20 11:06 Temperature Pulse Rate Pulse Rate [Apical] Pulse Rate [Right Radial] 59 L 58 L 53 L Respiratory Rate Blood Pressure Blood Pressure [Right Arm] 134/58 L 154/61 H 129/50 L 02 Sat by Pulse Oximetry 98 98 97 10/20/20 11:34 10/20/20 12:03 10/20/20 12:45 Temperature 98.2 F 97.8 F Pulse Rate 65 Pulse Rate [Apical] Pulse Rate [Right Radial] 64 72 Respiratory Rate 14 14 Blood Pressure 135/63 Blood Pressure [Right Arm] 139/63 115/54 L 02 Sat by Pulse Oximetry 100 98 10/20/20 13:10 10/20/20 16:00 10/20/20 20:00 Temperature 98.3 F 98.3 F Pulse Rate 60 60 70 Pulse Rate [Apical] 69 Pulse Rate [Right Radial] 69 69 Respiratory Rate 17 14 Blood Pressure Blood Pressure [Right Arm] 124/53 L 131/69 02 Sat by Pulse Oximetry 100 96 10/20/20 20:45 10/21/20 00:00 10/21/20 03:26 Temperature 98.4 F 97.9 F Pulse Rate 65 Pulse Rate [Apical] 68 Pulse Rate [Right Radial] 69 116 H Respiratory Rate 14 16 14 Blood Pressure Blood Pressure [Right Arm] 116/49 L 125/55 L 02 Sat by Pulse Oximetry 96 95 98 10/21/20 04:00 Temperature Pulse Rate 60 Pulse Rate [Apical] Pulse Rate [Right Radial] Respiratory Rate Blood Pressure Blood Pressure [Right Arm] 02 Sat by Pulse Oximetry I & O for Last 24 hours: Intake & Output 10/18/20 10/19/20 10/20/20 10/21/20 23:59 23:59 23:59 23:59 Intake Total 1115 / 1115 1293 / 1293 Output Total 600 / 600 Balance 515 / 515 1293 / 1293 Weight 183 lb 3 oz - Constitutional no acute distress - *Routine HEENT Exam Head: Present: normocephalic Eye: Present: EOMI, PERRL ENT: Present: mucous membranes moist - *Routine Neck Exam Present: supple.
[2020-10-21 10:20] LABS: Basophils % 0.4 % (0.1-2.0); Eosinophils # 0.2 K/mm3 (0.0-0.4); Eosinophils % 2.5 % (0.1-12.0); Hematocrit 33.9 % (37.0-47.0); Hemoglobin 10.9 g/dL (12.2-16.2); Lymphocytes # 1.3 K/mm3 (0.7-4.5); Lymphocytes % 21.2 % (10-50); Mean Corpuscular HGB Conc 32.1 g/dL (31.8-35.4); Mean Corpuscular Hemoglobin 30.3 pg (27.0-31.2); Mean Corpuscular Volume 94.3 fl (81-99); Mean Platelet Volume 8.4 fl (7.4-10.4); Monocytes # 0.3 K/mm3 (0.1-1.0); Monocytes % 4.9 % (1.7-9.3); Neutrophils # 4.5 K/mm3 (1.8-7.8); Neutrophils % 71.1 % (37.0-80.0); Platelet Count 336 K/mm3 (142-424); Red Blood Count 3.59 M/mm3 (4.20-5.40); Red Cell Distribution Width 14.4 % (11.5-17.5); White Blood Count 6.3 K/mm3 (4.8-10.8)
[2020-10-21 10:26] LABS: Chloride 106 mmol/L (98-107); Sodium 139 mmol/L (136-145)
[2020-10-21 10:27] LABS: Potassium 3.9 mmoL/L (3.5-5.1)
[2020-10-21 10:29] LABS: Blood Urea Nitrogen 14 mg/dl (7-17); Creatinine Clearance Estimated 99 mL/min (50-200); Estimated Glomerular Filt Rate 73 ml/min (>60); GFR (African American) 89 ML/MIN (>60)
[2020-10-21 10:30] LABS: Anion Gap 11.9 mEq/L (5-15); Calcium 8.9 mg/dl (8.4-10.2); Carbon Dioxide 25 mmol/L (22.0-30.0); Glucose 140 mg/dl (74-100)
--- NOTE | 2020-10-21 11:03 | HMH.PHAINT ---
DISCHARGE COUNSELING COMPLETED ON PATIENT. NEW PRESCRIPTIONS FOR POTASSIUM SUPPLEMENT AND ISOSORBIDE MONONITRATE. NEW PRESCRIPTIONS WERE SENT TO [facility] IN [place]. PATIENT VERBALIZED UNDERSTANDING AND HAD NO QUESTIONS AT THIS TIME.
--- NOTE | 2020-10-23 13:49 | HMH.DCSUM ---
General - General Admission date:: 10/20/20 Discharge date: 10/21/20 HPI HPI: 60-year-old female presented to the emergency department with generalized weakness. Patient originally had the symptoms last night. She states that she just did not feel well. She is having some intermittent chest discomfort as well as some lightheadedness. She woke up this morning and her symptoms persisted. She got concerned that she was having a stroke and presented to the emergency department. The patient is not having any focal weakness or change in vision. There is no slurred speech. She denies any headache. She states that she just feels generally weak all over. She is also having some mild dull chest discomfort. Nonradiating. Has been persistent since she woke this morning. The patient does have a history of CAD with cardiac catheterization and stenting. She denies any associated shortness of breath or palpitations. No abdominal pain or vomiting. No diarrhea. (The above per Dr. Sawant) She was seen in consultation by cardiology and also has complained of some perioral numbness in the area where she previously had jaw pain prior to her most recent stenting in June 2020. She states she has been compliant with her medications. The numbess does extend into her chest but at this time has resolved. She still feels weak. Her states she was unable to walk to the car this am. Her troponins have been normal and her EKG has been normal as well. She will be admitted for serial enzymes to r/o and [place]. Hospital Course Hospital Course: The patient's chest x-ray showed nothing acute and her head CT showed an old lacunar infarction but nothing acute. Cardiology was consulted and added Imdur and Ranexa and recommended observation overnight. They felt she should continue on her home medications. Her potassium was low and was replaced. A U/A was also ordered due to some dysuria. By 10/21/2020, the patient felt much better. She had no chest pain or numbness and tingling and was anxious to go home. Her enzymes were normal. Her potassium normalized and she was stable to be discharged home on oral potassium. Objective Vital signs: Temp Pulse Resp BP Pulse Ox 97.8 F 63 17 134/59 L 96 10/21/20 08:00 10/21/20 08:00 10/21/20 08:00 10/21/20 08:00 10/21/20 08:00 Narrative: - Constitutional no acute distress - *Routine HEENT Exam Head: Present: normocephalic Eye: Present: EOMI, PERRL ENT: Present: mucous membranes moist - *Routine Neck Exam Present: supple, full ROM. Absent: lymphadenopathy - *Routine Respiratory Exam Present: CTA bilaterally - *Routine Cardiovascular Exam Present: RRR - *Routine Abdominal Exam Present: soft, normoactive bowel sounds. Absent: tenderness - *Routine Extremities Exam Absent: cyanosis, clubbing, edema - *Routine Skin Exam Present: warm. Absent: rash - *Routine Neurological Exam Present: alert, oriented X3 Results Labs on day of discharge: Preliminary micro results at discharge 10/20/20 08:59 Blood Culture - Preliminary Blood NO GROWTH AFTER 48 HOURS 10/20/20 08:49 Blood Culture - Preliminary Blood NO GROWTH AFTER 48 HOURS DS: Diagnosis - Discharge Diagnosis (1) Atypical chest pain Status: Acute (2) Fatigue Status: Acute (3) Coronary artery disease Status: Chronic (4) Stented coronary artery Status: Acute (5) HLD (hyperlipidemia) Status: Chronic (6) Hypertension Status: Chronic (7) Dysuria Status: Acute (8) Hypokalemia Status: Acute Discharge Plan - Patient Discharge Instructions ACTIVITY: Continue current activity DIET: continue same diet Patient Instructions: DI for Hypokalemia - Follow up Plan Follow up with: Jamie Chahal MD [Primary Care Provider] - (Already scheduled in 10 days) Disposition: Home, Self-Correction Medications: Home Medications
== END 2020-10-21 11:15 | disposition home or self-care (01) ==
LOC: ER 10:59 → 2ND 11:05
PROVIDERS: Physician Assistant; Admitting Provider Family Medicine; Emergency Provider Emergency Medicine; PCP Family Medicine; Visit Provider Family Medicine
DX: R07.9 Chest pain, unspecified (principal); I25.10 Atherosclerotic heart disease of native coronary artery without angina pectoris; I10 Essential (primary) hypertension; E78.5 Hyperlipidemia, unspecified; E03.9 Hypothyroidism, unspecified; Z82.49 Family history of ischemic heart disease and other diseases of the circulatory system; Z95.5 Presence of coronary angioplasty implant and graft; Z79.01 Long term (current) use of anticoagulants; Z79.82 Long term (current) use of aspirin; E87.6 Hypokalemia; R30.0 Dysuria; Z88.8 Allergy status to other drugs, medicaments and biological substances
CPT/HCPCS: 36415; 70450; 71045; 80048; 80053; 81001; 82962; 83605; 83690; 83880; 84484; 85025; 85610; 85730; 86328; 87040; 93005; 99284; G0378

== ENCOUNTER → 2020-10-25 08:53 | Outpatient (CLI) | payer OTHER, SELFPAY ==
[2020-10-25 09:40] LABS: Chloride 99 mmol/L (98-107); Sodium 136 mmol/L (136-145)
[2020-10-25 09:41] LABS: Potassium 4.1 mmoL/L (3.5-5.1)
[2020-10-25 09:44] LABS: Anion Gap 14.1 mEq/L (5-15); Blood Urea Nitrogen 17 mg/dl (7-17); Calcium 9.4 mg/dl (8.4-10.2); Carbon Dioxide 27 mmol/L (22.0-30.0); Estimated Glomerular Filt Rate 64 ml/min (>60); GFR (African American) 78 ML/MIN (>60); Glucose 129 mg/dl (74-100)
[2020-10-25 10:25] LABS: Hemoglobin A1C 6.5 % (4.0-6.0)
== END ==
PROVIDERS: Visit Provider Family Medicine
DX: E87.6 Hypokalemia (principal); R73.01 Impaired fasting glucose
CPT/HCPCS: 36415; 80048; 83036

== ENCOUNTER → 2020-10-31 10:25 | Outpatient (CLI) | payer OTHER, SELFPAY ==
[2020-10-31 11:01] LABS: Basophils % 0.5 % (0.1-2.0); Eosinophils # 0.1 K/mm3 (0.0-0.4); Eosinophils % 1.9 % (0.1-12.0); Hematocrit 36.2 % (37.0-47.0); Hemoglobin 12.2 g/dL (12.2-16.2); Lymphocytes # 1.3 K/mm3 (0.7-4.5); Lymphocytes % 17.4 % (10-50); Mean Corpuscular HGB Conc 33.8 g/dL (31.8-35.4); Mean Corpuscular Hemoglobin 30.7 pg (27.0-31.2); Mean Corpuscular Volume 91.1 fl (81-99); Mean Platelet Volume 7.5 fl (7.4-10.4); Monocytes # 0.5 K/mm3 (0.1-1.0); Monocytes % 6.2 % (1.7-9.3); Neutrophils # 5.6 K/mm3 (1.8-7.8); Neutrophils % 73.9 % (37.0-80.0); Platelet Count 464 K/mm3 (142-424); Red Blood Count 3.97 M/mm3 (4.20-5.40); Red Cell Distribution Width 14.3 % (11.5-17.5); White Blood Count 7.6 K/mm3 (4.8-10.8)
[2020-10-31 11:25] LABS: Chloride 98 mmol/L (98-107)
[2020-10-31 11:26] LABS: Potassium 4.1 mmoL/L (3.5-5.1); Sodium 137 mmol/L (136-145)
[2020-10-31 11:28] LABS: Blood Urea Nitrogen 19 mg/dl (7-17); Estimated Glomerular Filt Rate 64 ml/min (>60); GFR (African American) 78 ML/MIN (>60)
[2020-10-31 11:29] LABS: Anion Gap 13.1 mEq/L (5-15); Calcium 9.9 mg/dl (8.4-10.2); Carbon Dioxide 30 mmol/L (22.0-30.0); Glucose 99 mg/dl (74-100)
== END ==
PROVIDERS: Visit Provider Urology
DX: R06.00 Dyspnea, unspecified (principal); I25.10 Atherosclerotic heart disease of native coronary artery without angina pectoris; I49.8 Other specified cardiac arrhythmias; E78.5 Hyperlipidemia, unspecified; I10 Essential (primary) hypertension
CPT/HCPCS: 36415; 80048; 85025

== ENCOUNTER → 2020-11-02 07:45 | Outpatient (CLI) | payer OTHER, SELFPAY ==
--- NOTE | 2020-11-02 | CA_ITS ---
APPROVED REPORT Exam: Pharmacologic Technologist: Kinga Barraza, Ht: 5 ft 2 in Wt: 185 lbs BSA: 1.85 m2 HR: 60 bpm BP: 140/47 mmHg Rhythm: NSR,LOW VOLTAGE QRS Medical History Medical History: HTN, Hyperlipidemia Medications: Omeprazole,,,,, Levothyroxine,,,,, Aspirin,,,,, Atenolol,,,,, Losartan,,,,, Atorvastatin,,,,, HCTZ,,,,, Ticagrelor,,,,, Ropinirole,,,,, Isosorbide Mononitrate ER,,,,, Potassiun,,,,, Allergies: DEXAMETHASONE,KENALOG Cardiac Risk Factors: HTN, Hyperlipidemia, FHX of CAD Stress Test Details Test: LEXISCAN HR Resting HR: 59 bpm Max Heart Rate (APMHR): 161 bpm Max HR Achieved: 97 bpm Target HR (85% APMHR): 136 bpm % of APMHR: 60 Recovery HR: 83 bpm BP Resting BP: 140.0/47.0 mmHg Max BP: 140.0/47.0 mmHg Recovery BP: 117.0/45.0 mmHg ECG Resting ECG: NSR,LOW VOLTAGE QRS Clinical Exercise duration: 04:00 min Highest Stage Achieved: Stress ECG Conclusion DURING INFUSION PATIENT HAD SOA,NAUSEA,LIGHT HEADEDNESS AND MILD BUT BRIEF CHEST DISCOMFORT. OCCASIONAL ISOLATED PVC. 0.5MM HORIZONTAL ST DEPRESSION INFERIORLY AND LATERALLY.. NON-DIAGNOSTIC LEXISCAN STRESS. MYOVIEW IMAGES REPORTED SEPARATELY Test Summary REST . . . . . . . Resting REST 12:05 . . 59 . 140/ 47 . . Stage 1 . . . . . . . Myoview Injected Stage 1 01:00 . . 87 . . . . Stage 2 01:00 . . 96 . . . . Stage 3 01:00 . . 89 . 106/ 60 . . Stage 4 01:00 . . 85 . 116/ 69 . Stop exercise at 04:00 RECOVERY 01:00 . . 85 . . . . RECOVERY 02:00 . . 80 . . . . RECOVERY 03:00 . . 65 . 117/ 45 . . RECOVERY 04:00 . . 61 . 117/ 45 . . RECOVERY 05:00 . . 58 . 108/ 54 . . RECOVERY 06:00 . . 60 . 113/ 50 . . RECOVERY 07:00 . . 60 . 113/ 50 . . RECOVERY 08:00 . . 58 . 113/ 50 . . RECOVERY 09:00 . . 56 . 113/ 50 . . RECOVERY 10:00 . . 60 . 118/ 53 . . RECOVERY 11:00 . . 57 . 118/ 53 . . RECOVERY 12:00 . . 57 . 118/ 51 . . RECOVERY 12:04 . . 58 . 118/ 51 . . Electronically signed by : Tito Hernandez, 11/02/2020 14:25:43
--- NOTE | 2020-11-02 07:46 | NM_ITS ---
APPROVED REPORT Exam: Nuclear Stress Test Indication: CAD, HTN, HYPERLIPIDEMIA, FM HX, C.P., SOB, FATIGUE Patient Location: Outpatient Stress Tech: Claudia Lazar DC Tech:TRE Forbes RT(R)(N) Ht: 5 ft 2 in Wt: 185 lbs Bra Size: D HR: 60 bpm BP: 140/47 mmHg BSA: 1.85 m2 BMI: 33.8 History: CAD, HTN, HYPERLIPIDEMIA, FM HX, C.P., SOB, FATIGUE Procedure: Patient received a 0.4 mg of intravenous Lexiscan, resting heart rate 60 bpm, resting blood pressure 140/47 mmHg, with Lexiscan maximum heart rate achived was 95 bpm which is Less than 85 % of the maximum predicted heart rate and blood pressure was 60/ mmHg. With Lexiscan, patient denied any complaint of chest pain. Electrocardiogram Resting electrocardiogram showed sinus rhythm nonspecific ST-T changes, with Lexiscan there is less than 1.[address] segment depression noted from the baseline EKG. The EKG portion of the Lexiscan is nondiagnostic. Cardiac Stress and Resting SPECT Images: Cardiac Stress and Resting SPECT images were obtained using technetium 99m Myoview 31.4 mCi stress and 10.59 mCi at rest. Gated SPECT for analysis of segmental wall motion and calculation of the ejection fraction also done. Prone images were also obtained. Cardiac stress and resting SPECT images show uniform myocardial activity without segmental perfusion abnormality, computer derived ejection fraction is over 65% with no regional wall motion abnormality, right ventricle is mildly enlarged with normal contractility. Conclusion: 1. The EKG portion of the Lexiscan is nondiagnostic. 2. No scintigraphic evidence of reversible ischemia seen, computer derived ejection fraction is over 65% with no regional wall motion abnormality, right ventricle is mildly enlarged with normal contractility. Electronically signed by : Tito Hernandez, 11/02/2020 14:29:13
== END ==
PROVIDERS: PCP Family Medicine; Visit Provider Urology
DX: R06.00 Dyspnea, unspecified (principal); I20.9 Angina pectoris, unspecified; I49.8 Other specified cardiac arrhythmias; E78.5 Hyperlipidemia, unspecified; I10 Essential (primary) hypertension; Z95.5 Presence of coronary angioplasty implant and graft
CPT/HCPCS: 78452; 93017; A9502; J2785

== ENCOUNTER 2020-11-03 11:41 | Emergency (ER) | payer OTHER, SELFPAY ==
--- NOTE | 2020-11-03 11:40 | ECG_ITS ---
APPROVED REPORT Exam: Resting ECG HR:77 bpm ECG Measurements Heart Rate 77 AXES RI 148 P 69 QRSd 66 QRS 35 QT 382 T 52 QTc 432 Conclusion Normal sinus rhythm Low voltage QRS Borderline ECG Electronically signed by : Harpreet Cole, 11/03/2020 19:08:57
--- NOTE | 2020-11-03 11:48 | XR_ITS ---
PROCEDURE: XR CHEST PORTABLE CLINICAL HISTORY: Chest pain COMPARISON: CR XR CHEST PORTABLE from 06/23/2020 CR XR CHEST 2V from 06/24/2020 CR XR CHEST PORTABLE from 10/20/2020 FINDINGS: The cardiomediastinal silhouette and pulmonary vascularity are within normal limits. No lobar consolidation or collapse. Prominent pericardial fat pad on the left No acute bony abnormalities. IMPRESSION: No acute findings. Dictated by: Yonatan Sneed MD 11/03/2020 13:52 Yonatan Sneed MD in [place] 11/03/2020 13:52
[2020-11-03 11:51] VITALS: BP 143/87; PULSE 62; RESP 20; O2SAT 93; BMI 30.9
[2020-11-03 12:05] LABS: Basophils # 0.1 K/mm3 (0-0.2); Basophils % 0.6 % (0.1-2.0); Eosinophils # 0.1 K/mm3 (0.0-0.4); Eosinophils % 1.7 % (0.1-12.0); Hematocrit 38.6 % (37.0-47.0); Hemoglobin 12.1 g/dL (12.2-16.2); Mean Corpuscular HGB Conc 31.3 g/dL (31.8-35.4); Mean Corpuscular Hemoglobin 29.3 pg (27.0-31.2); Mean Corpuscular Volume 93.4 fl (81-99); Mean Platelet Volume 7.2 fl (7.4-10.4); Monocytes # 0.6 K/mm3 (0.1-1.0); Monocytes % 7.3 % (1.7-9.3); Neutrophils # 5.7 K/mm3 (1.8-7.8); Neutrophils % 66.6 % (37.0-80.0); Platelet Count 533 K/mm3 (142-424); Red Blood Count 4.14 M/mm3 (4.20-5.40); Red Cell Distribution Width 13.9 % (11.5-17.5); White Blood Count 8.5 K/mm3 (4.8-10.8)
[2020-11-03 12:09] LABS: Anion Gap 14.7 mEq/L (5-15); Blood Urea Nitrogen 24 mg/dl (7-17); Calcium 9.9 mg/dl (8.4-10.2); Carbon Dioxide 27 mmol/L (22.0-30.0); Chloride 99 mmol/L (98-107); Creatinine Clearance Estimated 78 mL/min (50-200); Estimated Glomerular Filt Rate 57 ml/min (>60); GFR (African American) 69 ML/MIN (>60); Glucose 148 mg/dl (74-100); Potassium 3.7 mmoL/L (3.5-5.1); Sodium 137 mmol/L (136-145)
[2020-11-03 12:23] LABS: Troponin I < 0.01 ng/ml (0.00-0.034)
[2020-11-03 12:34] VITALS: BP 129/62; PULSE 54; O2SAT 98
--- NOTE | 2020-11-03 13:09 | HMH.EDSYNC ---
ED Disposition Clinical Impression: Vasovagal syncope Adverse effects of medication Qualifiers: Encounter type: initial encounter Qualified Code(s): T50.905A - Adverse effect of unspecified drugs, medicaments and biological substances, initial encounter Disposition: Home, Self-Care Condition on Discharge: Good Instructions: DI for Syncope in Adults (Fainting) Additional Instructions: stop brinta and start plavix Prescriptions: Clopidogrel Bisulfate [Plavix 75mg Tab] 75 mg PO DAILY #30 tab Transmission Status: Pending to [id number] Referrals: Jamie Chahal MD [Primary Care Provider] - - Critical Care Critical Care Time: No Attestation: On 11/03/20, the high probability of a clinically significant, sudden or life threatening deterioration of the following system(s) required my full and direct attention, intervention and personal management. The time I documented below is in addition to time spent performing reported procedures but includes the following listed in this critical care notation. Medical Decision Making - Medical Records Medical records reviewed: Yes: I reviewed the patient's medical records. - Alexi Inquiry Pt receiving controlled substance: No Vital Signs: 11/03/20 11:51 11/03/20 12:34 11/03/20 14:10 Pulse Rate [Radial] 62 54 L 58 L Respiratory Rate 20 Blood Pressure [Right Arm] 143/87 H 129/62 114/55 L Blood Pressure Mean [Right Arm] 105 84 74 Blood Pressure Source [Right Arm] Automatic Cuff Automatic Cuff Automatic Cuff Blood Pressure Position [Right Arm] Sitting Sitting Sitting 02 Sat by Pulse Oximetry 93 L 98 100 Oxygen Delivery Method Room Air Room Air Room Air - Lab Data Lab results reviewed: Yes: I reviewed the patient's lab results. Lab Results 11/03/20 11:49: WBC 8.5, RBC 4.14 L, Hgb 12.1 L, Hct 38.6, MCV 93.4, MCH 29.3, MCHC 31.3 L, RDW 13.9, Plt Count 533 H, MPV 7.2 L, Neut % (Auto) 66.6, Lymph % (Auto) 24.0, [place] % (Auto) 7.3, Eos % (Auto) 1.7, Baso % (Auto) 0.6, Neut # (Auto) 5.7, Lymph # (Auto) 2.0, [place] # (Auto) 0.6, Eos # (Auto) 0.1, Baso # (Auto) 0.1 11/03/20 11:49: Sodium 137, Potassium 3.7, Chloride 99, Carbon Dioxide 27, Anion Gap 14.7, BUN 24 H, Creatinine 1.00, Estimated Creat Clear 78, Estimated GFR 57 L, Est GFR ( Amer) 69, Glucose 148 H, Calcium 9.9, Troponin I < 0.01 Result diagrams: 11/03/20 11:49 11/03/20 11:49 Orders (Tests/Meds): ED MEDICATIONS Discontinued Medications Generic Name Dose Route Start Last Admin Trade Name Freq PRN Reason Stop Dose Admin Sodium Chloride 1,000 mls @ 999 mls/hr 11/03/20 12:00 11/03/20 12:19 Sod Chlor 0.9% 1000ml Bag IV 11/03/20 13:00 999 mls/hr .Q1H1M KIRAN Administration Ondansetron HCl 4 mg 11/03/20 11:57 11/03/20 12:18 Ondansetron 4mg/2ml Vial IV 11/03/20 11:58 4 mg ONCE ONE Administration ORDERS Category Date Time Status Troponin I Q3H Lab 11/03/20 15:00 Ordered Troponin I Q3H Lab 11/03/20 18:00 Ordered - Radiology Data #1 Image(s): Chest Image Reviewed: Yes I reviewed the patient's radiology image Preliminary Findings: Normal/NAD - ECG Data Tracing #1 Normal Sinus Rhythm: Yes Ischemic changes: non-specific ST-T wave changes - Physician Consults Physician Consulted: ponce Reason -: Pt condition Additional Consult: radha Reason -: Pt condition - Reevaluation(s) Time: 14:40 Reevaluation #1: doing better Medical Decision Narrative: will stop brinta and use plavix - hold on ranexa at this time Syncope HPI - General Chief Complaint: Syncope Stated Complaint: syncope Time Seen by Provider: 11/03/20 12:00 Mode of Arrival: Wheelchair Source of Information: Patient, Medical Record Limitations: No Limitations Description of Symptoms (Recalled from ER Triage Doc. by RN): While at Dr. Goode's office patient began to complain of chest pain. Staff gave her one nitro and patient had a syncopal episode so they brou
[2020-11-03 14:10] VITALS: BP 114/55; PULSE 58; O2SAT 100
[2020-11-03 14:48] VITALS: BP 114/55; PULSE 58; RESP 20; TEMP 36.8; O2SAT 100
== END 2020-11-03 14:52 | disposition home or self-care (01) ==
PROVIDERS: Emergency Provider Emergency Medicine; PCP Family Medicine
DX: R55 Syncope and collapse (principal); T46.3X5A Adverse effect of coronary vasodilators, initial encounter; Y92.89 Other specified places as the place of occurrence of the external cause; I10 Essential (primary) hypertension; E78.5 Hyperlipidemia, unspecified; E03.9 Hypothyroidism, unspecified; I25.10 Atherosclerotic heart disease of native coronary artery without angina pectoris; Z95.5 Presence of coronary angioplasty implant and graft; K21.9 Gastro-esophageal reflux disease without esophagitis; Z79.899 Other long term (current) drug therapy
CPT/HCPCS: 71045; 80048; 84484; 85025; 93005; 96365; 96375; 99283; J2405

== ENCOUNTER → 2021-01-01 11:51 | Outpatient (CLI) | payer OTHER, SELFPAY ==
[2021-01-01 12:42] LABS: Basophils % 0.6 % (0.1-2.0); Eosinophils # 0.1 K/mm3 (0.0-0.4); Eosinophils % 1.6 % (0.1-12.0); Hematocrit 35.6 % (37.0-47.0); Hemoglobin 11.6 g/dL (12.2-16.2); Lymphocytes # 1.6 K/mm3 (0.7-4.5); Lymphocytes % 25.6 % (10-50); Mean Corpuscular HGB Conc 32.6 g/dL (31.8-35.4); Mean Corpuscular Hemoglobin 30.2 pg (27.0-31.2); Mean Corpuscular Volume 92.8 fl (81-99); Mean Platelet Volume 7.8 fl (7.4-10.4); Monocytes # 0.4 K/mm3 (0.1-1.0); Monocytes % 6.7 % (1.7-9.3); Neutrophils # 4.1 K/mm3 (1.8-7.8); Neutrophils % 65.5 % (37.0-80.0); Platelet Count 406 K/mm3 (142-424); Red Blood Count 3.84 M/mm3 (4.20-5.40); Red Cell Distribution Width 14.3 % (11.5-17.5); White Blood Count 6.3 K/mm3 (4.8-10.8)
== END ==
PROVIDERS: PCP Family Medicine; Visit Provider Family Medicine
DX: Z20.822 Contact with and (suspected) exposure to COVID-19 (principal)
CPT/HCPCS: 36415; 85025; 87275; 87276; U0003

== ENCOUNTER 2021-01-05 12:33 | Emergency (ER) | payer OTHER, SELFPAY ==
[2021-01-05] VITALS (8 sets, daily range): BP systolic 118–146; BP diastolic 46–65; PULSE 51–69; RESP 18–20; TEMP 36.6; O2SAT 97–100; BMI 32.9
--- NOTE | 2021-01-05 12:51 | XR_ITS ---
PROCEDURE: XR CHEST PORTABLE CLINICAL HISTORY: generalized weakness, reported fevers COMPARISON: CR XR CHEST 2V from 06/24/2020 CR XR CHEST PORTABLE from 10/20/2020 CR XR CHEST PORTABLE from 11/03/[address] ABDOMEN PELVIS WO CON from 01/05/2021 FINDINGS: There is a prominent epicardial pad. The cardiomediastinal silhouette and pulmonary vascularity are otherwise within normal limits. The lungs are clear without infiltrates, suspicious nodules, or pleural effusions. No acute bony abnormalities. IMPRESSION: No acute findings. Dictated by: Vanda Simmons MD 01/05/2021 14:17 Vanda Simmons MD in [place] 01/05/2021 14:17
[2021-01-05 13:22] LABS: Basophils % 0.6 % (0.1-2.0); Eosinophils # 0.1 K/mm3 (0.0-0.4); Eosinophils % 1.5 % (0.1-12.0); Hematocrit 36.9 % (37.0-47.0); Hemoglobin 12.1 g/dL (12.2-16.2); Lymphocytes # 1.9 K/mm3 (0.7-4.5); Lymphocytes % 30.3 % (10-50); Mean Corpuscular HGB Conc 32.8 g/dL (31.8-35.4); Mean Corpuscular Hemoglobin 29.8 pg (27.0-31.2); Mean Corpuscular Volume 91.1 fl (81-99); Mean Platelet Volume 7.5 fl (7.4-10.4); Monocytes # 0.4 K/mm3 (0.1-1.0); Monocytes % 6.1 % (1.7-9.3); Neutrophils # 3.9 K/mm3 (1.8-7.8); Neutrophils % 61.5 % (37.0-80.0); Platelet Count 451 K/mm3 (142-424); Red Blood Count 4.05 M/mm3 (4.20-5.40); Red Cell Distribution Width 14.6 % (11.5-17.5); White Blood Count 6.4 K/mm3 (4.8-10.8)
--- NOTE | 2021-01-05 13:23 | HMH.EDGENADL ---
ED Disposition Clinical Impression: Left flank pain, Generalized weakness Disposition: Home, Self-Care Condition on Discharge: Good Additional Instructions: Drink plenty of fluids. Tylenol or ibuprofen for pain and fever. Follow-up with your primary care provider next week. Return to the emergency department if repetitive vomiting, uncontrollable fever greater than 102 degrees, shortness of breath. Referrals: Jamie Chahal MD [Primary Care Provider] - - Critical Care Critical Care Time: No Attestation: On 01/05/21, the high probability of a clinically significant, sudden or life threatening deterioration of the following system(s) required my full and direct attention, intervention and personal management. The time I documented below is in addition to time spent performing reported procedures but includes the following listed in this critical care notation. Medical Decision Making - Medical Records Medical records reviewed: Yes: I reviewed the patient's medical records. MR Comment: Reviewed recent lab results, outpatient Covid and flu test negative, also had a CBC done that was unremarkable. - Alexi Inquiry Pt receiving controlled substance: No Vital Signs: 01/05/21 12:35 01/05/21 13:05 01/05/21 13:30 Temperature 97.8 F Temperature Source Oral Pulse Rate [Right Radial] 69 55 L 60 Respiratory Rate 18 Blood Pressure [Right Arm] 136/65 118/51 L 123/53 L Blood Pressure Mean [Right Arm] 88 73 76 Blood Pressure Source [Right Arm] Automatic Cuff Automatic Cuff Automatic Cuff Blood Pressure Position [Right Arm] Sitting Sitting Sitting 02 Sat by Pulse Oximetry 99 100 100 Oxygen Delivery Method Room Air Room Air Room Air 01/05/21 14:00 01/05/21 14:30 01/05/21 15:00 Temperature Temperature Source Pulse Rate [Right Radial] 54 L 54 L 52 L Respiratory Rate Blood Pressure [Right Arm] 122/46 L 122/46 L 139/55 L Blood Pressure Mean [Right Arm] 71 71 83 Blood Pressure Source [Right Arm] Automatic Cuff Automatic Cuff Automatic Cuff Blood Pressure Position [Right Arm] Sitting Sitting Sitting 02 Sat by Pulse Oximetry 100 97 100 Oxygen Delivery Method Room Air Room Air Room Air - Lab Data Lab Results 01/05/21 13:09: WBC 6.4, RBC 4.05 L, Hgb 12.1 L, Hct 36.9 L, MCV 91.1, MCH 29.8, MCHC 32.8, RDW 14.6, Plt Count 451 H, MPV 7.5, Neut % (Auto) 61.5, Lymph % (Auto) 30.3, Bacon % (Auto) 6.1, Eos % (Auto) 1.5, Baso % (Auto) 0.6, Neut # (Auto) 3.9, Lymph # (Auto) 1.9, Bacon # (Auto) 0.4, Eos # (Auto) 0.1, Baso # (Auto) 0.0 01/05/21 13:09: Sodium 134 L, Potassium 4.4, Chloride 97 L, Carbon Dioxide 32 H, Anion Gap 9.4, BUN 18 H, Creatinine 1.00, Estimated Creat Clear 78, Estimated GFR 57 L, Est GFR ( Amer) 69, Glucose 104 H, Calcium 9.8, Total Bilirubin 0.7, AST 28, ALT 19, Alkaline Phosphatase 77, Total Protein 8.0, Albumin 4.6, Globulin 3.4 H, Albumin/Globulin Ratio 1.4 01/05/21 13:09: Lactate 1.0 01/05/21 14:43: Urine Color Dk yellow, Urine Appearance Sl cloudy, Urine pH 6.5, Ur Specific [place] >= 1.030, Urine Protein Negative, Urine Glucose (UA) Negative, Urine Ketones Negative, Urine Blood Negative, Urine Nitrate Negative, Urine Bilirubin Negative, Urine Urobilinogen 0.2, Ur Leukocyte Esterase Negative, Urine RBC None, Urine WBC Occasional, Ur Squamous Epith Cells Occasional, Urine Bacteria Trace Result diagrams: 01/05/21 13:09 01/05/21 13:09 Orders (Tests/Meds): ED MEDICATIONS Generic Name Dose Route Start Last Admin Trade Name Freq PRN Reason Stop Dose Admin Acetaminophen 1,000 mg 01/05/21 16:07 Acetaminophen 500mg Tab PO 01/05/21 16:08 ONCE ONE Discontinued Medications Generic Name Dose Route Start Last Admin Trade Name Freq PRN Reason Stop Dose Admin Ketorolac Tromethamine 30 mg 01/05/21 13:35 01/05/21 13:49 Ketorolac 30mg/Ml Vial IV 01/05/21 13:36 30 mg ONCE ONE Administration Sodium Chloride 1,000 ml 01/05/21 13:35 01/05/21 13:49 Sodium Chloride 0.9% 1
[2021-01-05 13:24] LABS: Chloride 97 mmol/L (98-107); Sodium 134 mmol/L (136-145)
[2021-01-05 13:25] LABS: Potassium 4.4 mmoL/L (3.5-5.1)
[2021-01-05 13:27] LABS: Alanine Aminotransferase 19 U/L (12-78); Albumin Level 4.6 g/dl (3.5-5.0); Albumin/Globulin Ratio 1.4 (1.1-1.8); Alkaline Phosphatase 77 U/L (38-126); Anion Gap 9.4 mEq/L (5-15); Aspartate Amino Transferase 28 U/L (14-36); Bilirubin,Total 0.7 mg/dl (0.2-1.3); Blood Urea Nitrogen 18 mg/dl (7-17); Calcium 9.8 mg/dl (8.4-10.2); Carbon Dioxide 32 mmol/L (22.0-30.0); Creatinine Clearance Estimated 78 mL/min (50-200); Estimated Glomerular Filt Rate 57 ml/min (>60); GFR (African American) 69 ML/MIN (>60); Globulin 3.4 g/dL (1.3-3.2); Glucose 104 mg/dl (74-100)
--- NOTE | 2021-01-05 13:35 | CT_ITS ---
PROCEDURE: CT ABDOMEN PELVIS WO CON CLINICAL INDICATION: left flank pain r/o stone COMPARISON: CT ABDPELWO CT abdomen pelvis wo con from 02/28/2019 TECHNIQUE: Axial images obtained with sagittal and coronal reformats. All CT scans at the facility use one or more dose reduction, viz: automated exposure control, ma/kV adjustment per patient size (including targeted exams where dose is matched to indication, i.e. head), or iterative reconstruction technique. FINDINGS: LOWER THORAX: No acute finding ABDOMEN & PELVIS: There is no intraperitoneal free air or free fluid. Tiny gallstones are visible. Solid abdominal organs have an otherwise unremarkable unenhanced appearance. Specifically, there is no hydronephrosis, nephrolithiasis, hydroureter, ureteral or urinary bladder stone. Patient has had prior hysterectomy. Ovaries are not visualized on this noncontrast study. Urinary bladder is unremarkable. The GI tract is unremarkable without ileus or obstruction. No findings suspicious for acute appendicitis. There is no abdominal or pelvic adenopathy. There is moderate atherosclerotic calcification of the abdominal aorta and branch vessels. The remaining major abdominal and pelvic vasculature has an unremarkable unenhanced appearance. There are degenerative changes in the lumbar and lower thoracic spine. There is probable severe lumbosacral foraminal bony narrowing which could impinge on the L5 nerve roots or sacral nerve roots. IMPRESSION: Atherosclerosis and skeletal findings. No acute finding. Dictated by: Vanda Simmons MD 01/05/2021 15:42 Vanda Simmons MD in [facility] 01/05/2021 15:42
--- NOTE | 2021-01-05 13:51 | PC.NURSE ---
pt going to rad
--- NOTE | 2021-01-05 14:01 | PC.NURSE ---
PT IN CT
--- NOTE | 2021-01-05 14:06 | PC.NURSE ---
pt return from CT
--- NOTE | 2021-01-05 14:41 | PC.NURSE ---
pt taken to restroom at this time.
[2021-01-05 14:47] LABS: Microscopic, Urine URINE MICROSCOPIC (MICROSCOPIC)
[2021-01-05 14:48] LABS: Appearance,Urine SL CLOUDY (Clear); Blood, Urine Negative (Negative); Color,Urine DK YELLOW (Yellow); Glucose,Urine (UA) Negative (Negative); Ketones,Urine Negative (Negative); Leukocyte Esterase,Urine Negative (Negative); Nitrate,Urine Negative (Negative); PH,Urine 6.5 (5.0-8.5); Protein,Urine Negative (Negative); Specific Gravity, Urine >= 1.030 (1.005-1.030); Urobilinogen,Urine 0.2 EU/dl (0.2)
[2021-01-05 14:59] LABS: Bilirubin,Urine Negative (Negative)
[2021-01-05 15:05] LABS: Bacteria,Urine Trace /lpf; Squamous Epithelial Cell,Urine Occasional #/hpf (0-5); WBC,Urine Occasional #/hpf (0-3)
--- NOTE | 2021-01-05 15:20 | PC.NURSE ---
Getting MD Moser for ER
--- NOTE | 2021-01-05 15:25 | PC.NURSE ---
speaking with Shanti at this time.
== END 2021-01-05 16:22 | disposition home or self-care (01) ==
PROVIDERS: Emergency Provider Emergency Medicine; PCP Family Medicine
DX: R10.12 Left upper quadrant pain (principal); R53.1 Weakness; K21.9 Gastro-esophageal reflux disease without esophagitis; E78.5 Hyperlipidemia, unspecified; E03.9 Hypothyroidism, unspecified; I10 Essential (primary) hypertension; Z79.899 Other long term (current) drug therapy
CPT/HCPCS: 71045; 74176; 80053; 81001; 83605; 85025; 87040; 96365; 96375; 99284

== ENCOUNTER 2021-01-09 18:01 | Emergency (ER) | payer OTHER, SELFPAY ==
[2021-01-09 18:32] VITALS: BP 162/70; PULSE 71; RESP 16; TEMP 36.6; O2SAT 98; BMI 32.9
--- NOTE | 2021-01-09 18:52 | HMH.EDUTC ---
[facility] [place] Disposition Clinical Impression: Stye Qualifiers: Laterality: left Eyelid: lower Qualified Code(s): H00.015 - Hordeolum externum left lower eyelid Disposition: Home, Self-Care Condition on Discharge: Good Instructions: DI for Hordeolum Additional Instructions: follow up with dr jung in am use cream warm compress return if worsen or no improvement Prescriptions: Erythromycin Base [Erythromycin 1gm opth ointment] 1 gm OP BID 7 Days #1 oint...g. Transmission Status: Pending to [id number] Referrals: Jamie Chahal MD [Primary Care Provider] - Time of Disposition: 18:57 Medical Decision Making - Alexi Inquiry Pt receiving controlled substance: No Vital Signs: 01/09/21 18:32 Temperature 97.8 F Temperature Source Tympanic Pulse Rate [Right] 71 Respiratory Rate 16 Blood Pressure [Right Arm] 162/70 H Blood Pressure Mean [Right Arm] 100 Blood Pressure Source [Right Arm] Automatic Cuff Blood Pressure Position [Right Arm] Sitting 02 Sat by Pulse Oximetry 98 Oxygen Delivery Method Room Air [facility] [place] HPI - General Chief complaint: Urgent [facility] Stated complaint: infected left eye Time Seen by Provider: 01/09/21 18:52 Mode of Arrival: Ambulatory Source of Information: Patient Limitations: No Limitations Description of Symptoms (Recalled from Triage Doc. by RN): PT HAS A STYE ON THE INNER LOWER LID OF HER LEFT EYE. OTC TX IS NOT WORKING. HEENT Symptoms (Recalled from RN notes): Yes (STYE IN LEFT EYE) Resp Symptoms (Recalled from RN notes): No Skin Symptoms (Recalled from RN notes): No MS Symptoms (Recalled from RN notes): No Functional Status (Recalled from RN notes): NA - History of Present Illness Provider Complaint: 60 yr old female presents for a stye to left lower lid. pt states it started this weekend and she has tried warm compresses and baby shampoo but nothing is helping. - Related Data Home Medications Medication Instructions Recorded Confirmed Levothyroxine Sodium 100 mcg PO DAILY 01/08/18 11/03/20 [Levothyroxine 100mcg (0.1MG) Tab] Ropinirole HCl [Requip 0.25mg 0.25 mg PO HS 01/08/18 11/03/20 Tablet] Omeprazole 20 mg PO DAILY 01/20/20 11/03/20 hydroCHLOROthiazide [HCTZ 25mg 25 mg PO DAILY 01/20/20 11/03/20 tab] Losartan Potassium [Cozaar 100mg 100 mg PO DAILY 06/13/20 11/03/20 Tablets] Aspirin [Aspirin 81mg EC Tab] 81 mg PO DAILY 06/23/20 11/03/20 Atorvastatin Calcium [Lipitor 40mg 40 mg PO HS 06/23/20 11/03/20 Tablet*] atenolol 50 mg tablet 25 mg PO DAILY tab 07/04/20 11/03/20 Potassium Chloride 10 meq PO DAILY 11/03/20 11/03/20 Previous Rx's Medication Instructions Recorded Clopidogrel Bisulfate [Plavix 75mg 75 mg PO DAILY #30 tab 11/03/20 Tab] ranolazine 1,000 mg 1,000 mg PO BID #60 tab 12/19/20 tablet,extended release,12 hr Erythromycin Base [Erythromycin 1 gm OP BID 7 Days #1 oint...g. 01/09/21 1gm opth ointment] Allergies Allergy/AdvReac Type Severity Reaction Status Date / Time dexamethasone [DEXAMETHASONE] Allergy Unknown Verified 12/19/20 09:27 triamcinolone [From KENALOG] Allergy Unknown Verified 12/19/20 09:27 - Worker's Comp Is this a Worker's Comp case?: No [facility] History - Hepatitis A Screen Drug use history?: No High risk sexual behaviors?: No History of sexually transmitted infection?: No Currently employed?: No Childcare worker?: No Do you have indoor plumbing?: Yes Do you have electricity?: Yes Attestation statement:: This patient has been screened for Hepatitis A risk factors. I have reviewed the patient's past medical history: Yes Medical History: Reports:: Coronary Artery Disease, Gastroesophageal Reflux Disease(GERD), Hyperlipidemia, Hypertension Denies:: Cancer, Diabetes Mellitus Type 1, Diabetes Mellitus Type 2, MRSA Other Medical History: Reports: Hypothyroidism, Other Other Surgeries: Yes: Cardiac Catheterization, Colonoscopy, Coronary Stent, , Hysterectomy-[place]
[2021-01-09 19:03] VITALS: BP 158/74; PULSE 70; RESP 16; TEMP 36.6
== END 2021-01-09 19:03 | disposition home or self-care (01) ==
PROVIDERS: Emergency Provider Nurse Practitioner Family; PCP Family Medicine
DX: H00.015 Hordeolum externum left lower eyelid (principal); K21.9 Gastro-esophageal reflux disease without esophagitis; E78.5 Hyperlipidemia, unspecified; I10 Essential (primary) hypertension; I25.10 Atherosclerotic heart disease of native coronary artery without angina pectoris; E03.9 Hypothyroidism, unspecified; Z79.899 Other long term (current) drug therapy
CPT/HCPCS: 99202; G0463

== ENCOUNTER 2021-01-13 22:40 | Observation (INO) | payer OTHER, SELFPAY ==
[2021-01-13 22:39] VITALS: BP 153/81; PULSE 79; RESP 14; TEMP 36.7; O2SAT 90; BMI 33.3
--- NOTE | 2021-01-13 23:14 | ECG_ITS ---
APPROVED REPORT Exam: Resting ECG HR:53 bpm ECG Measurements Heart Rate 53 AXES IL 140 P 37 QRSd 96 QRS 11 QT 464 T 53 QTc 435 Conclusion Sinus bradycardia Otherwise normal ECG Electronically signed by : Harpreet Cole, 01/14/2021 11:46:29
--- NOTE | 2021-01-13 23:14 | CT_ITS ---
PROCEDURE: CT HEAD/BRAIN WO CON CLINICAL INDICATION: ams Altered mental status, altered level of consciousness, confusion, disorientation COMPARISON: CT CT HEAD/BRAIN WO CON from 10/20/2020 TECHNIQUE: Axial images obtained. All CT scans at the facility use one or more dose reduction, viz: automated exposure control, ma/kV adjustment per patient size (including targeted exams where dose is matched to indication, i.e. head), or iterative reconstruction technique. FINDINGS: No midline shift, mass effect, intracranial hemorrhage, hydrocephalus, or extra-axial fluid collection is evident. The calvarium has an unremarkable appearance. No mastoid effusion. There is mucosal thickening the maxillary sinus on right and to lesser degree on the left as well as the ethmoid sinuses on the left IMPRESSION: No acute intracranial finding Dictated by: Yonatan Sneed MD 01/14/2021 08:33 Yonatan Sneed MD in [facility] 01/14/2021 08:33
--- NOTE | 2021-01-13 23:14 | XR_ITS ---
PROCEDURE: XR CHEST PORTABLE CLINICAL HISTORY: cp Chest pain COMPARISON: CR XR CHEST PORTABLE from 10/20/2020 CR XR CHEST PORTABLE from 11/03/2020 CR XR CHEST PORTABLE from 01/05/2021 FINDINGS: The cardiomediastinal silhouette and pulmonary vascularity are within normal limits. The lungs are clear without infiltrates, suspicious nodules, or pleural effusions. No acute bony abnormalities. IMPRESSION: No acute findings. Dictated by: Yonatan Sneed MD 01/14/2021 06:56 Yonatan Sneed MD in [facility] 01/14/2021 06:56
[2021-01-13 23:15] VITALS: BP 178/81; PULSE 65; RESP 12; O2SAT 96
[2021-01-13 23:29] LABS: Basophils % 0.5 % (0.1-2.0); Eosinophils # 0.3 K/mm3 (0.0-0.4); Eosinophils % 4.9 % (0.1-12.0); Hematocrit 31.7 % (37.0-47.0); Lymphocytes # 1.5 K/mm3 (0.7-4.5); Lymphocytes % 29.5 % (10-50); Mean Corpuscular HGB Conc 31.7 g/dL (31.8-35.4); Mean Corpuscular Hemoglobin 30.2 pg (27.0-31.2); Mean Corpuscular Volume 95.2 fl (81-99); Mean Platelet Volume 7.9 fl (7.4-10.4); Monocytes # 0.5 K/mm3 (0.1-1.0); Monocytes % 8.8 % (1.7-9.3); Neutrophils # 2.9 K/mm3 (1.8-7.8); Neutrophils % 56.3 % (37.0-80.0); Platelet Count 278 K/mm3 (142-424); Red Blood Count 3.32 M/mm3 (4.20-5.40); White Blood Count 5.1 K/mm3 (4.8-10.8)
[2021-01-13 23:30] VITALS: BP 181/85; PULSE 70; RESP 11; O2SAT 94
[2021-01-13 23:39] VITALS: BP 177/65; PULSE 72; RESP 17; O2SAT 95
[2021-01-13 23:41] LABS: Alanine Aminotransferase 14 U/L (12-78); Albumin Level 3.2 g/dl (3.5-5.0); Albumin/Globulin Ratio 1.1 (1.1-1.8); Alkaline Phosphatase 48 U/L (38-126); Anion Gap 8.3 mEq/L (5-15); Aspartate Amino Transferase 25 U/L (14-36); Bilirubin,Total 0.3 mg/dl (0.2-1.3); Blood Urea Nitrogen 11 mg/dl (7-17); Calcium 7.8 mg/dl (8.4-10.2); Carbon Dioxide 24 mmol/L (22.0-30.0); Chloride 110 mmol/L (98-107); Creatinine Clearance Estimated 124 mL/min (50-200); Estimated Glomerular Filt Rate 86 ml/min (>60); GFR (African American) 104 ML/MIN (>60); Globulin 2.8 g/dL (1.3-3.2); Glucose 104 mg/dl (74-100); Potassium 3.3 mmoL/L (3.5-5.1); Sodium 139 mmol/L (136-145)
[2021-01-13 23:54] LABS: Troponin I < 0.01 ng/ml (0.00-0.034)
[2021-01-14] VITALS (12 sets, daily range): BP systolic 119–152; BP diastolic 54–75; PULSE 60–82; RESP 12–18; TEMP 36.3–36.8; O2SAT 93–99; BMI 33.8
--- NOTE | 2021-01-14 00:06 | CT_ITS ---
PROCEDURE: CT ABDOMEN PELVIS W CON CLINICAL INDICATION: abd pain, vomiting COMPARISON: CT ABDPELWO CT abdomen pelvis wo con from 02/28/[address] ABDOMEN PELVIS WO CON from 01/05/2021 TECHNIQUE: IV Contrast: 75ML Isovue 370 Oral Contrast None Axial images obtained with sagittal and coronal reformats. All CT scans at the facility use one or more dose reduction, viz: automated exposure control, ma/kV adjustment per patient size (including targeted exams where dose is matched to indication, i.e. head), or iterative reconstruction technique. FINDINGS: LOWER THORAX: Atelectatic changes in the lung bases ABDOMEN & PELVIS: Mild distention of the gallbladder noted. Liver, spleen, adrenal glands, pancreas, and kidneys have an unremarkable appearance. There is a small umbilical hernia. No intestinal obstruction or free air. No evidence of appendicitis or diverticulitis. There is a mild amount of retained colonic feces. There is thickening of the antrum and pyloric region of the stomach. This is nonspecific and could be due to gastritis or even neoplasm. Upper endoscopy may provide further evaluation. Arredondo catheter is present. No pelvic mass or abnormal fluid collection Degenerative disc disease L5-S1 with endplate and facet hypertrophic change with bilateral foraminal narrowing IMPRESSION: 1. Thickening of the antrum of the stomach and pyloric region. This could be due to nondistention, gastritis, or neoplasm. Upper endoscopy or upper GI suggested for further evaluation. 2. Other nonacute findings as described above. Dictated by: Yonatan Sneed MD 01/14/2021 08:27 Yonatan Sneed MD in [facility] 01/14/2021 08:27
--- NOTE | 2021-01-14 00:07 | HMH.EDGENADL ---
ED Disposition Clinical Impression: Chest pain Qualifiers: Chest pain type: unspecified Qualified Code(s): R07.9 - Chest pain, unspecified Disposition: Admitted As Inpatient Condition on Discharge: Good Referrals: Jamie Chahal MD [Primary Care Provider] - - Critical Care Critical Care Time: No Attestation: On 01/13/21, the high probability of a clinically significant, sudden or life threatening deterioration of the following system(s) required my full and direct attention, intervention and personal management. The time I documented below is in addition to time spent performing reported procedures but includes the following listed in this critical care notation. Medical Decision Making - Medical Records Medical records reviewed: Yes: I reviewed the patient's medical records. - Alexi Inquiry Pt receiving controlled substance: No Vital Signs: 01/13/21 22:39 Temperature 98.0 F Temperature Source Oral Pulse Rate [Left Radial] 79 Respiratory Rate 14 Blood Pressure [Right Arm] 153/81 H Blood Pressure Mean [Right Arm] 105 Blood Pressure Source [Right Arm] Automatic Cuff Blood Pressure Position [Right Arm] Supine 02 Sat by Pulse Oximetry 90 L Oxygen Delivery Method Room Air - Lab Data Lab Results 01/13/21 23:20: WBC 5.1, RBC 3.32 L, Hgb 10.0 L, Hct 31.7 L, MCV 95.2, MCH 30.2, MCHC 31.7 L, RDW 15.0, Plt Count 278, MPV 7.9, Neut % (Auto) 56.3, Lymph % (Auto) 29.5, Saline % (Auto) 8.8, Eos % (Auto) 4.9, Baso % (Auto) 0.5, Neut # (Auto) 2.9, Lymph # (Auto) 1.5, Saline # (Auto) 0.5, Eos # (Auto) 0.3, Baso # (Auto) 0.0 01/13/21 23:20: Sodium 139, Potassium 3.3 L, Chloride 110 H, Carbon Dioxide 24, Anion Gap 8.3, BUN 11, Creatinine 0.70, Estimated Creat Clear 124, Estimated GFR 86, Est GFR ( Amer) 104, Glucose 104 H, Calcium 7.8 L, Total Bilirubin 0.3, AST 25, ALT 14, Alkaline Phosphatase 48, Troponin I < 0.01, Total Protein 6.0 L, Albumin 3.2 L, Globulin 2.8, Albumin/Globulin Ratio 1.1 01/14/21 00:16: VBG pH 7.43 H, VBG pCO2 31.3 L, VBG pO2 148.1 H, VBG HCO3 20.4 L, VBG Total CO2 21.3 L, VBG O2 Saturation 98.5 H, VBG Base Excess -3.9 L Result diagrams: 01/13/21 23:20 01/13/21 23:20 Orders (Tests/Meds): ED MEDICATIONS Discontinued Medications Generic Name Dose Route Start Last Admin Trade Name Freq PRN Reason Stop Dose Admin Iopamidol 75 ml 01/14/21 00:37 01/14/21 00:38 Iopamidol-370 (76%);100ml Bottle IV 01/14/21 00:38 75 ml ONCE ONE Administration Ondansetron HCl 4 mg 01/14/21 00:16 01/14/21 00:16 Ondansetron 4mg/2ml Vial IV 01/14/21 00:17 4 mg ONCE ONE Administration Sodium Chloride 10 ml 01/14/21 00:37 01/14/21 00:38 Sodium Chloride 0.9% 10ml Syr (Rad Only) IV 01/14/21 00:38 10 ml ONCE ONE Administration ORDERS Category Date Time Status CT abdomen pelvis w con Stat Cat Scan 01/14/21 00:[address] head/brain wo con Stat Cat Scan 01/13/21 23:14 Taken XR chest portable Stat Exams 01/13/21 23:14 Taken Full Resp Panel w/COVID ([facility]) Routine Lab 01/14/21 01:05 Received Troponin I Q3H Lab 01/14/21 02:15 Ordered Troponin I Q3H Lab 01/14/21 05:15 Ordered VBG [Venous Blood Gas] Stat RT 01/13/21 23:15 Ordered ECG Request by /Nse Stat Y 01/13/21 23:14 Ordered Medical Decision Narrative: At this point, the exact cause of the patient's current symptom complex is unknown. Initial EKG is nondiagnostic and initial delta troponin testing protocols are within normal limits.At the present time, I doubt pulmonary embolus secondary to the lack of tachycardia, tachypnea, or hypoxia. . Similarly, I doubt aortic dissection or abdominal aortic aneurysm secondary to history and description of pain, the patient's nonfocal vascular examination in all four extremities, and CXR unremarkable for signs of mediastinal widening. Doubt pneumothorax given good bilateral breath sounds and chest X ray with good lung markings out to the periphery. No signs suggestive of pneumonia
[2021-01-14 00:17] LABS: VBG Base Excess -3.9 mmol/L (-2.4-2.3); VBG HCO3 20.4 mmol/L (23-30); VBG Oxygen Saturation 98.5 % (50-70); VBG PCO2 31.3 mmol/L (35-51); VBG PH 7.43 mmol/L (7.31-7.41); VBG PO2 148.1 mmol/L (28-40); VBG Total CO2 21.3 mmol/L (23-27)
[2021-01-14 01:28] LABS: Adenovirus,PCR Not Detected (NotDetected); Bordetella Pertussis Not Detected (NotDetected); Chlamydophila Pneumoniae, PCR Not Detected (NotDetected); Coronavirus 19, PCR Not Detected (NotDetected); Coronavirus 229E Not Detected (NotDetected); Coronavirus NL63 Not Detected (NotDetected); Coronavirus OC43 Not Detected (NotDetected); Coronovirus HKU1,PCR Not Detected (NotDetected); Human Metapneumovirus Not Detected (NotDetected); Influenza A, PCR Not Detected (NotDetected); Influenza AH1, 2009 Not Detected (NotDetected); Influenza AH1, PCR Not Detected (NotDetected); Influenza AH3,PCR Not Detected (NotDetected); Influenza B, PCR Not Detected (NotDetected); Mycoplasma Pneumoniae, PCR Not Detected (NotDetected); Parainfluenza 1, PCR Not Detected (NotDetected); Parainfluenza 2, PCR Not Detected (NotDetected); Parainfluenza 3, PCR Not Detected (NotDetected); Parainfluenza 4, PCR Not Detected (NotDetected); Respiratory Syncytial Virus Not Detected (NotDetected); Rhinovirus/Enterovirus Not Detected (NotDetected)
[2021-01-14 02:58] LABS: Troponin I 0.02 ng/ml (0.00-0.034)
--- NOTE | 2021-01-14 03:16 | PC.NURSE ---
PT ARRIVED TO FLOOR VIA W/C FROM ED WITH STAFF AT 0314
[2021-01-14 03:41] LABS: Microscopic, Urine URINE MICROSCOPIC (MICROSCOPIC)
[2021-01-14 03:42] LABS: Appearance,Urine CLEAR (Clear); Bilirubin,Urine Negative (Negative); Blood, Urine TRACE-I (Negative); Color,Urine YELLOW (Yellow); Glucose,Urine (UA) Negative (Negative); Ketones,Urine Negative (Negative); Leukocyte Esterase,Urine Negative (Negative); Nitrate,Urine Negative (Negative); Protein,Urine Negative (Negative); Specific Gravity, Urine 1.015 (1.005-1.030); Urobilinogen,Urine 0.2 EU/dl (0.2)
--- NOTE | 2021-01-14 03:43 | PC.NURSE ---
Pt is A&Ox4 and reports to be a full code, her is her emergency contact (Diomedes True [phone]), and password is [id number] .
--- NOTE | 2021-01-14 04:04 | PC.NURSE ---
PT a&o x4, arrived to unit at 0315. Pt is fatigued but able to ambulate with one assist. Pt denies nausea or pain. NSR on tele. RR even and nonlabored, sats in high 90s on RA, lungs CTA. Able to make needs known to staff. IV patent, SL. NPO since arrival to unit. VSS, call light in reach, no concerns at this time.
[2021-01-14 06:31] LABS: Basophils % 0.4 % (0.1-2.0); Eosinophils # 0.1 K/mm3 (0.0-0.4); Eosinophils % 0.9 % (0.1-12.0); Hematocrit 32.6 % (37.0-47.0); Hemoglobin 10.6 g/dL (12.2-16.2); Lymphocytes # 1.1 K/mm3 (0.7-4.5); Mean Corpuscular HGB Conc 32.4 g/dL (31.8-35.4); Mean Corpuscular Hemoglobin 30.6 pg (27.0-31.2); Mean Corpuscular Volume 94.4 fl (81-99); Mean Platelet Volume 7.7 fl (7.4-10.4); Monocytes # 0.4 K/mm3 (0.1-1.0); Monocytes % 6.4 % (1.7-9.3); Neutrophils # 5.1 K/mm3 (1.8-7.8); Neutrophils % 75.3 % (37.0-80.0); Platelet Count 304 K/mm3 (142-424); Red Blood Count 3.46 M/mm3 (4.20-5.40); Red Cell Distribution Width 14.9 % (11.5-17.5); White Blood Count 6.7 K/mm3 (4.8-10.8)
[2021-01-14 06:39] LABS: Anion Gap 9.1 mEq/L (5-15); Blood Urea Nitrogen 12 mg/dl (7-17); Carbon Dioxide 30 mmol/L (22.0-30.0); Chloride 102 mmol/L (98-107); Creatinine Clearance Estimated 100 mL/min (50-200); Estimated Glomerular Filt Rate 73 ml/min (>60); GFR (African American) 89 ML/MIN (>60); Glucose 119 mg/dl (74-100); Potassium 4.1 mmoL/L (3.5-5.1); Sodium 137 mmol/L (136-145)
[2021-01-14 06:59] LABS: Troponin I < 0.01 ng/ml (0.00-0.034)
[2021-01-14 07:15] LABS: Calcium 9.3 mg/dl (8.4-10.2)
--- NOTE | 2021-01-14 10:58 | HMH.HP ---
*Admission Date: 01/14/21 *Chief complaint: Chest pain *History of present illness: Mrs. Giles is a 60 year old female who presented to [facility] ER last night with complaints of chest pain and feelings as if she were going to pass out. She states she was walking to her neighbors house yesterday, which is a few hundred feet from her house, and she had to stop 4 times due to chest pain. She states the pain was located in the center of her chest and radiated into her left arm. Patient states rest relieved her symptoms. Afterwards, during the evening last night, she was profoundly weak and required assistance from her to ambulate through her house. Just before midnight he became more worried and tried to get her in to the car to come to the ER, but he states she passed out so he called 911 and EMS brought patient to the ER. Mrs. Giles is a fairly new patient to my practice, about 3 months. She reports having problems with exertional chest pain and passing out episodes for about the past 9 months. She has had two separate left heart caths with interventions (May and June of 2020) and has had subsequent cardiac testing including stress test and echocardiography. She states she was started on Ranexa and has had the dose increased and she feel worse the more of it she takes. She states she frequently feels sensations of racing heart and palpitations. She states that she is compliant in taking her medications. [facility] History Medical History: Reports:: Coronary Artery Disease, Gastroesophageal Reflux Disease(GERD), Hyperlipidemia, Hypertension Denies:: Cancer, Diabetes Mellitus Type 1, Diabetes Mellitus Type 2, MRSA *Have you ever received a pneumonia vaccine?: No *Have you received a flu vaccine this season?: Yes Other Medical History: Reports: Hypothyroidism, Other Other Surgeries: Yes: Cardiac Catheterization, Colonoscopy, Coronary Stent, , Hysterectomy-Partial, Other Amputation: No Fractures: No - *Social History Last grade of school completed: High school graduate Smoking Status: Never smoker Alcohol Intake: never *Occupational Status:: employed Housing: house Household Members: significant other *Travel in the last 8 weeks: None Family Hx:: Cancer, Coronary Artery Disease, Diabetes, Heart Attack, Hyperlipidemia, Hypertension Review of Systems - Constitutional Denies fever(s) - Eyes Denies blurry vision - ENT Denies change in voice - *Respiratory Denies cough - *Gastrointestinal Denies abdominal pain - *Genitourinary Denies pelvic pain - *Musculoskeletal Denies joint pain - Integumentary/Breasts Denies rash - *Neurologic Reports weakness, Denies dizziness - Psychiatric Denies mood swings Meds Home Medications Medication Instructions Recorded Confirmed Type Levothyroxine Sodium 100 mcg PO DAILY 01/08/18 01/14/21 History [Levothyroxine 100mcg (0.1MG) Tab] Ropinirole HCl [Requip 0.25mg 0.25 mg PO HS 01/08/18 01/14/21 History Tablet] Omeprazole 20 mg PO DAILY 01/20/20 01/14/21 History hydroCHLOROthiazide [HCTZ 25mg 25 mg PO DAILY 01/20/20 01/14/21 History tab] Losartan Potassium [Cozaar 100mg 100 mg PO DAILY 06/13/20 01/14/21 History Tablets] Aspirin [Aspirin 81mg EC Tab] 81 mg PO DAILY 06/23/20 01/14/21 History Atorvastatin Calcium [Lipitor 40mg 40 mg PO HS 06/23/20 01/14/21 History Tablet*] atenolol 50 mg tablet 25 mg PO DAILY tab 07/04/20 01/14/21 History Potassium Chloride 10 meq PO DAILY 11/03/20 01/14/21 History Clopidogrel Bisulfate [Plavix 75mg 75 mg PO DAILY 01/14/21 01/14/21 History Tab] Erythromycin Base [Erythromycin 1 gm OP BID 01/14/21 01/14/21 History 1gm opth ointment] Ranolazine [Ranolazine ER] 1,000 mg PO BID 01/14/21 01/14/21 History Allergies Allergy/AdvReac Type Severity Reaction Status Date / Time dexamethasone [DEXAMETHASONE] Allergy Unknown Verified 12/19/20 09:27 triamcinolone [From KENALOG] Allergy Unknown Verified
[2021-01-14 11:31] LABS: Iron 71 ug/dL (37-170); Magnesium 1.9 mg/dl (1.6-2.3); Phosphorous 4.5 mg/dl (2.5-4.5)
[2021-01-14 11:49] LABS: Free T4 (Free Thyroxine) 1.28 ng/dl (0.78-2.19)
[2021-01-14 12:03] LABS: Thyroid Stimulating Hormone 2.15 uIU/mL (0.465-4.68)
--- NOTE | 2021-01-14 14:14 | HMH.PHAVTE ---
[facility] Pharmacy VTE Monitoring - Patient Demographics Admission date: 01/14/21 Report Date: 01/14/21 Time: 14:14 Allergies/Adverse Reactions: Patient Allergies dexamethasone [DEXAMETHASONE] Allergy (Unknown, Verified 12/19/20 09:27) triamcinolone [From KENALOG] Allergy (Unknown, Verified 12/19/20 09:27) Height: 1.57 m Weight: 84.005 kg Patient Problems: Current Active Problems Hypertension (Chronic) Hypothyroidism (Chronic) Hypokalemia (Acute) Chest pain (Acute) Syncope (Acute) Anemia (Acute) CAD (coronary artery disease) (Acute) Stented coronary artery (Chronic) - VTE Risk Labs: VTE Related Lab Results Hgb 10.6 g/dL (12.2-16.2) L 01/14/21 05:50 Hct 32.6 % (37.0-47.0) L 01/14/21 05:50 Plt Count 304 K/mm3 (142-424) 01/14/21 05:50 BUN 12 mg/dl (7-17) 01/14/21 05:50 Creatinine 0.80 mg/dl (0.52-1.04) 01/14/21 05:50 Estimated Creat Clear 100 mL/min (50-200) 01/14/21 05:50 VTE Score: 4 VTE Risk Level: Low Risk - Prophylaxis Types of VTE Prophylaxis: TEDS Knee High (JULIENNE HOSE ORDERED)
--- NOTE | 2021-01-14 16:05 | PC.NURSE ---
patient has done well this shift. no complaints of chest pain. rings out as needed. states sometimes she feels like her heart is racing, have not noticed any increases of heart rate on monitor. states she just feels very weak and tired. vitals are stable.
[2021-01-15] VITALS (22 sets, daily range): BP systolic 113–148; BP diastolic 50–86; PULSE 53–84; RESP 14–18; TEMP 36.4–37.1; O2SAT 86–100; BMI 34.3
--- NOTE | 2021-01-15 | IR_ITS ---
APPROVED REPORT Patient Location: Inpatient Environmental Health Manager: TRE Riggins RT (R) PROCEDURES Left heart catheterization Left ventriculogram Selective coronary angiogram Drug-eluting stent deployment to the left main artery Drug-eluting stent deployment to the proximal and mid dominant circumflex artery INDICATION Unstable angina, Coronary artery disease, In-stent restenosis, Informed consent was obtained prior to the procedure. COMPLICATIONS None Estimated Blood Loss: Less than 10 mls TECHNIQUE One percent lidocaine was used to anesthetize the right groin. The right femoral artery was accessed via the Seldinger technique. A 4-[place]is[place] sheath was placed in the right femoral artery. The JL-4 and JR-4 catheter was also used to perform left heart catheterization left ventriculogram and selective coronary angiogram. At the end the diagnostic angiogram therapeutic heparin was administered giving an out of range ACT. The 4 [place] sheath was exchanged for a 6 [place] sheath and an EBU 3.75 guide catheter was placed in the left main artery. A Choice PT wire was placed in the circumflex artery where 3 mm balloon was used to predilate the ostial circumflex artery. Following this a 3 mm x 15 mm resolute [place] stent was placed in the left main artery extending into the circumflex artery and deployed at 24 nadir. An additional 2.5 x 26 mm resolute pat stent was then placed distal to this into the mid to distal circumflex artery and deployed at 15 nadir. A fresh 3.5 x 20 mm noncompliant balloon was then deployed in the proximal to mid circumflex artery at 14 nadir to post dilate. The balloon was brought back into the proximal circumflex artery extending back into the left main artery and deployed at 20 nadir. There are excellent angiographic results with MIR-3 flow being present before and after the procedure. After achieving excellent angiographic results the apparatus was removed the groin was reprepped closure changed sheath was removed good hemostasis was achieved using Perclose device patient was transferred to the postop holding her stable condition. 800 mcg of intracoronary nitroglycerin was administered which alleviated spasm in the first obtuse marginal artery. ANGIOGRAPHIC RESULTS The left main artery Has a stent in the proximal mid and distal segment which is widely patent free of in-stent restenosis The left anterior descending artery Has a stent originating off the left main artery which is widely patent with minimal in-stent restenosis. The remaining LAD is widely patent. A large first diagonal artery has an ostial proximal 40 to 50% stenosis The circumflex artery Is a codominant vessel and has an ostial greater than 90% stenosis followed by a widely patent stent followed by 80 and 90% mid vessel circumflex stenosis. The right coronary artery Is a codominant vessel with mild proximal and mid vessel 30% atheromatous plaque The PINTO ventriculogram reveals Normal 65% The left ventricular end-diastolic pressure 25 mmHg IMPRESSION Severe in-stent restenosis in the ostial circumflex artery Successful stenting of the left main artery extending into the circumflex artery critical disease reduced to 0% with 1 stent in the [place] circumflex artery 1 stent into the left main artery Normal ejection fraction Moderately elevated LVEDP PLAN 1. Dual antiplatelet therapy 2. Long-acting nitrates to alleviate spasm. Start 30 mg a day and then uptitrate as tolerated 3. Standard therapy for ischemic heart disease 4. LDL less than 55 5. Cardiac rehabilitation 6. Avoidance of tobacco products Electronically signed by : Jl Goode, 01/15/2021 14:05:41
--- NOTE | 2021-01-15 04:01 | PC.NURSE ---
Pt has slept well this shift. C/O a headache early in shift. Medicated per jan. VS have remained stable. Pt has remained NSR on telemetry. No additional needs. Call light within reach. Will continue to monitor.
[2021-01-15 06:41] LABS: Basophils % 0.3 % (0.1-2.0); Eosinophils # 0.2 K/mm3 (0.0-0.4); Eosinophils % 4.3 % (0.1-12.0); Hematocrit 33.3 % (37.0-47.0); Hemoglobin 10.8 g/dL (12.2-16.2); Lymphocytes # 1.5 K/mm3 (0.7-4.5); Lymphocytes % 26.7 % (10-50); Mean Corpuscular HGB Conc 32.6 g/dL (31.8-35.4); Mean Corpuscular Hemoglobin 30.4 pg (27.0-31.2); Mean Corpuscular Volume 93.4 fl (81-99); Mean Platelet Volume 7.3 fl (7.4-10.4); Monocytes # 0.4 K/mm3 (0.1-1.0); Monocytes % 7.8 % (1.7-9.3); Neutrophils # 3.4 K/mm3 (1.8-7.8); Neutrophils % 60.9 % (37.0-80.0); Platelet Count 308 K/mm3 (142-424); Red Blood Count 3.56 M/mm3 (4.20-5.40); Red Cell Distribution Width 15.1 % (11.5-17.5); White Blood Count 5.6 K/mm3 (4.8-10.8)
[2021-01-15 06:43] LABS: Chloride 104 mmol/L (98-107); Potassium 3.8 mmoL/L (3.5-5.1); Sodium 138 mmol/L (136-145)
[2021-01-15 06:46] LABS: Anion Gap 6.8 mEq/L (5-15); Blood Urea Nitrogen 14 mg/dl (7-17); Carbon Dioxide 31 mmol/L (22.0-30.0); Creatinine Clearance Estimated 90 mL/min (50-200); Estimated Glomerular Filt Rate 64 ml/min (>60); GFR (African American) 78 ML/MIN (>60)
[2021-01-15 06:47] LABS: Calcium 9.1 mg/dl (8.4-10.2); Glucose 113 mg/dl (74-100)
--- NOTE | 2021-01-15 08:44 | HMH.ACPN2 ---
Internal Medicine - PN: Subj *Date: 01/15/21 *Time: 08:44 Interval history: Patient states she had a headache overnight, no other new problems. Exam Vital signs and Labs for Last 24 Hours: Temp Pulse Resp BP Pulse Ox 98.0 F 77 18 143/63 H 97 01/15/21 08:00 01/15/21 08:00 01/15/21 08:00 01/15/21 08:00 01/15/21 08:00 Laboratory Results - last 24 hr 01/14/21 05:50: Phosphorus 4.5, Magnesium 1.9, Iron 71, TSH 2.15 01/14/21 05:50: Free T4 1.28 01/15/21 06:11: WBC 5.6, RBC 3.56 L, Hgb 10.8 L, Hct 33.3 L, MCV 93.4, MCH 30.4, MCHC 32.6, RDW 15.1, Plt Count 308, MPV 7.3 L, Neut % (Auto) 60.9, Lymph % (Auto) 26.7, [place] % (Auto) 7.8, Eos % (Auto) 4.3, Baso % (Auto) 0.3, Neut # (Auto) 3.4, Lymph # (Auto) 1.5, [place] # (Auto) 0.4, Eos # (Auto) 0.2, Baso # (Auto) 0.0 01/15/21 06:11: Sodium 138, Potassium 3.8, Chloride 104, Carbon Dioxide 31 H, Anion Gap 6.8, BUN 14, Creatinine 0.90, Estimated Creat Clear 90, Estimated GFR 64, Est GFR ( Amer) 78, Glucose 113 H, Calcium 9.1 Vital Signs - 24 hr 01/14/21 12:00 01/14/21 13:43 01/14/21 16:00 Temperature 97.9 F 98.2 F Pulse Rate 70 60 Pulse Rate [Left Radial] 67 72 Respiratory Rate 17 17 Blood Pressure [Right Arm] 125/62 138/67 02 Sat by Pulse Oximetry 98 99 01/14/21 20:00 01/15/21 00:00 01/15/21 04:00 Temperature 98.3 F 98.1 F 97.7 F Pulse Rate 80 70 60 Pulse Rate [Left Radial] 78 75 77 Respiratory Rate 17 17 18 Blood Pressure [Right Arm] 131/67 113/50 L 130/73 02 Sat by Pulse Oximetry 95 96 99 01/15/21 08:00 Temperature 98.0 F Pulse Rate Pulse Rate [Left Radial] 77 Respiratory Rate 18 Blood Pressure [Right Arm] 143/63 H 02 Sat by Pulse Oximetry 97 I & O for Last 24 hours: Intake & Output 01/12/21 01/13/21 01/14/21 01/15/21 23:59 23:59 23:59 23:59 Intake Total 0 / 0 Output Total 1150 / 1150 475 / 475 Balance -1150 / -1150 -475 / -475 Weight 200 lb 185 lb 3.2 oz 186 lb 9 oz Narrative: Telemetry reviewed, no events noted. - Constitutional no acute distress - *Routine HEENT Exam Head: Present: normocephalic Eye: Present: EOMI ENT: Present: mucous membranes moist - *Routine Neck Exam Present: supple. Absent: lymphadenopathy - *Routine Respiratory Exam Present: CTA bilaterally - *Routine Cardiovascular Exam Present: RRR - *Routine Abdominal Exam Present: soft, normoactive bowel sounds. Absent: tenderness - *Routine Extremities Exam Absent: cyanosis, clubbing, edema - *Routine Skin Exam Present: warm. Absent: rash - *Routine Neurological Exam Present: alert, oriented X3 Assessment and Plan (1) Syncope Status: Acute Category: Medical Code(s): R55 - Syncope and collapse (2) Anemia Status: Acute Category: Medical Code(s): D64.9 - Anemia, unspecified (3) Chest pain Status: Acute Qualifiers: Chest pain type: unspecified Qualified Code(s): R07.9 - Chest pain, unspecified Category: Medical Code(s): R07.9 - Chest pain, unspecified (4) Hypertension Status: Chronic Qualifiers: Hypertension type: essential hypertension Qualified Code(s): I10 - Essential (primary) hypertension Category: Medical Code(s): I10 - Essential (primary) hypertension (5) Hypothyroidism Status: Chronic Category: Medical Code(s): E03.9 - Hypothyroidism, unspecified (6) Stented coronary artery Status: Chronic Category: Surgical Code(s): Z95.5 - Presence of coronary angioplasty implant and graft (7) CAD (coronary artery disease) Status: Acute Category: Medical Code(s): I25.10 - Atherosclerotic heart disease of [place] coronary artery without angina pectoris (8) Hypokalemia Status: Acute Category: Medical Code(s): E87.6 - Hypokalemia - Assessment and plan all Dx Assessment and Plan for all problems:: No change in treatment, await cardiology input.
--- NOTE | 2021-01-15 11:40 | HMH.CNCARD ---
History of Present Illness Consult date: 01/15/21 Consult reason: chest pain Chief complaint: Chest pain Additional Medical History:: 1. Typical chest pain (01/15/21) a. Troponins negative 2. Coronary artery disease a. Previous stenting to the left main artery and ostial LAD (06/05 and 07/06) b. Currently on Plavix and aspirin 3. Palpitations (01/15/21) 4. Essential hypertension 5. Hypothyroidism History of present illness: 60-year-old female presented to [facility] ED on 01/14/2021 with increased midsternal chest pain radiating down the left arm. Patient stated that she was trying to walk to her neighbors which was less than 400 feet, she started developing the midsternal chest pain. Patient states at times the chest pain would even cause her to have shortness of breath. States along with the chest pain she has been having increased feelings of palpitations. States feel like her heart is just racing. Patient noted to be sinus rhythm with a heart rate of 82 bpm per monitoring engineer. Patient has had on two separate occasions 2 heart catheterizations.06/05 left heart catheterization revealed stenting to the ostial left main and LAD.07/06 left heart catheterization required stenting to the ostial proximal LAD and left main. Patient has continued to be on Plavix and aspirin. Patient did undergo stress Myoview test in October. Myoview stress test was negative for ischemia and EF was 65%. Upon this assessment patient stated chest pain has eased some. Patient is very worried due to the chest pain coming back after the stents have been placed. Patient denies shortness of breath. is at bedside and stating that patient should go for heart catheterization due to her frequent chest pains. No swelling noted of the lower extremities. Initial work-up in the ER was performed. Initial EKG sinus bradycardia with a heart rate of 53 bpm. Negative troponins were noted. Discussed plan of care with Dr. Goode. Patient will be scheduled for left heart catheterization today due to unstable angina with previous stenting to the left main. Discuss benefits and risks to patient. Patient verbalizes understanding and is agreeable to procedure. Obtain echocardiogram to assess LV function and valve status. Pending on the results of the echocardiogram and heart catheterization, changes to medication regimen and treatment may be recommended. Thank you for allowing cardiology to participate in the care of this patient. [facility] History I have reviewed the patient's past medical history: Yes Medical History: Reports:: Coronary Artery Disease, Gastroesophageal Reflux Disease(GERD), Hyperlipidemia, Hypertension Denies:: Cancer, Diabetes Mellitus Type 1, Diabetes Mellitus Type 2, MRSA *Have you ever received a pneumonia vaccine?: No *Have you received a flu vaccine this season?: Yes Other Medical History: Reports: Hypothyroidism, Other Other Surgeries: Yes: Cardiac Catheterization, Colonoscopy, Coronary Stent, , Hysterectomy-Partial, Other Amputation: No Fractures: No - *Social History Last grade of school completed: High school graduate Smoking Status: Never smoker Alcohol Intake: never *Occupational Status:: employed Housing: house Household Members: significant other *Travel in the last 8 weeks: None Family Hx:: Cancer, Coronary Artery Disease, Diabetes, Heart Attack, Hyperlipidemia, Hypertension Meds Home Medications Medication Instructions Recorded Confirmed Type Levothyroxine Sodium 100 mcg PO DAILY 01/08/18 01/14/21 History [Levothyroxine 100mcg (0.1MG) Tab] Ropinirole HCl [Requip 0.25mg 0.25 mg PO HS 01/08/18 01/14/21 History Tablet] Omeprazole 20 mg PO DAILY 01/20/20 01/14/21 History hydroCHLOROthiazide [HCTZ 25mg 25 mg PO DAILY 01/20/20 01/14/21 History tab] Losartan Potassium [Cozaar 100mg 100 mg PO DAILY 06/13/20 01/14/21 History Tablets] Aspirin [Aspirin 81mg E
--- NOTE | 2021-01-15 14:33 | PC.NURSE ---
RECEIVED REPORT FROM PHILOMENA DE JESUS, JENNIFER @ [phone]
[2021-01-15 14:46] LABS: CATHL Activated Clotting Time 258 SEC (74-125)
--- NOTE | 2021-01-15 14:54 | PC.NURSE ---
PT BACK TO FLOOR @ 1445 PER STRETCHER ACCOMPANIED BY DEPUTY REGISTER OF DEEDS STAFF. PT AWAKE, ORIENTED, DROWSY. DENIES PAIN, NO COMPLAINTS VOICED. LUNGS CTA. ABDOMEN SOFT, NON-TENDER W/ ACTIVE BS IN ALL QUADS. PULSES PRESENT AND EQUAL IN EXTREMITIES. CAP REFIL <3 SEC. IS ABLE TO MOVE EXTREMITIES FREELY. R FEM CATH SITE W/ GAUZE AND TEGADERM IN PLACE. NO DRAINAGE PRESENT. NO S/S OF ACTIVE BLEEDING OR HEMATOMA. PT VSS STABLE. BED ALARM IN PLACE FOR PT SAFETY. CALL CARRILLO W/IN REACH.
[2021-01-16] VITALS: BP 125/60; PULSE 80; PULSE 84; RESP 16; TEMP 36.8; O2SAT 94
[2021-01-16 03:41] VITALS: BP 120/57; PULSE 94; RESP 16; TEMP 36.9; O2SAT 97
[2021-01-16 04:00] VITALS: PULSE 90
[2021-01-16 05:00] VITALS: BMI 33.3
--- NOTE | 2021-01-16 05:59 | PC.NURSE ---
shift summary pts lung sounds are clear with sats maintained 95% or above on room air with a rate ranging from 16-18. pt is able to get up and go to the bathroom with a standby assist. pt is alert and oriented X4. pt denies any pain, nausea, vomiting, or diarrhea.
[2021-01-16 07:41] LABS: Anion Gap 8.8 mEq/L (5-15); Blood Urea Nitrogen 15 mg/dl (7-17); Calcium 9.2 mg/dl (8.4-10.2); Carbon Dioxide 30 mmol/L (22.0-30.0); Chloride 103 mmol/L (98-107); Creatinine Clearance Estimated 87 mL/min (50-200); Estimated Glomerular Filt Rate 64 ml/min (>60); GFR (African American) 78 ML/MIN (>60); Glucose 117 mg/dl (74-100); Potassium 3.8 mmoL/L (3.5-5.1); Sodium 138 mmol/L (136-145)
[2021-01-16 07:50] LABS: Basophils % 0.5 % (0.1-2.0); Eosinophils # 0.2 K/mm3 (0.0-0.4); Eosinophils % 3.5 % (0.1-12.0); Hematocrit 32.5 % (37.0-47.0); Hemoglobin 10.6 g/dL (12.2-16.2); Lymphocytes # 1.4 K/mm3 (0.7-4.5); Lymphocytes % 21.8 % (10-50); Mean Corpuscular HGB Conc 32.5 g/dL (31.8-35.4); Mean Corpuscular Hemoglobin 30.7 pg (27.0-31.2); Mean Corpuscular Volume 94.5 fl (81-99); Mean Platelet Volume 7.3 fl (7.4-10.4); Monocytes # 0.5 K/mm3 (0.1-1.0); Monocytes % 7.5 % (1.7-9.3); Neutrophils # 4.3 K/mm3 (1.8-7.8); Neutrophils % 66.7 % (37.0-80.0); Platelet Count 330 K/mm3 (142-424); Red Blood Count 3.44 M/mm3 (4.20-5.40); Red Cell Distribution Width 15.1 % (11.5-17.5); White Blood Count 6.4 K/mm3 (4.8-10.8)
[2021-01-16 08:00] VITALS: BP 139/54; PULSE 100; PULSE 118; RESP 18; TEMP 36.9; O2SAT 98
--- NOTE | 2021-01-16 08:07 | HMH.ACPN2 ---
<Feli Martin - Last Filed: 01/16/21 08:07> Internal Medicine - PN: Subj *Date: 01/16/21 *Time: 08:07 Interval history: Patient denies chest pain. She denies shortness of breath. She is eating without problems. She has been up to the bathroom without dizziness. She had a cardiac cath yesterday with the following results: IMPRESSION Severe in-stent restenosis in the ostial circumflex artery Successful stenting of the left main artery extending into the circumflex artery critical disease reduced to 0% with 1 stent in the [place] circumflex artery 1 stent into the left main artery Normal ejection fraction Moderately elevated LVEDP PLAN 1. Dual antiplatelet therapy 2. Long-acting nitrates to alleviate spasm. Start 30 mg a day and then uptitrate as tolerated 3. Standard therapy for ischemic heart disease 4. LDL less than 55 5. Cardiac rehabilitation 6. Avoidance of tobacco products Laboratory data today with a stable H&H H at 10.6 and 32.5. Blood chemistries with normal electrolytes and renal function. Exam Vital signs and Labs for Last 24 Hours: Temp Pulse Resp BP Pulse Ox 98.4 F 90 16 120/57 L 97 01/16/21 03:41 01/16/21 04:00 01/16/21 03:41 01/16/21 03:41 01/16/21 03:41 Laboratory Results - last 24 hr 01/15/21 15:13: Activated Clotting Time 258 H* 01/16/21 07:15: WBC 6.4, RBC 3.44 L, Hgb 10.6 L, Hct 32.5 L, MCV 94.5, MCH 30.7, MCHC 32.5, RDW 15.1, Plt Count 330, MPV 7.3 L, Neut % (Auto) 66.7, Lymph % (Auto) 21.8, [place] % (Auto) 7.5, Eos % (Auto) 3.5, Baso % (Auto) 0.5, Neut # (Auto) 4.3, Lymph # (Auto) 1.4, [place] # (Auto) 0.5, Eos # (Auto) 0.2, Baso # (Auto) 0.0 01/16/21 07:15: Sodium 138, Potassium 3.8, Chloride 103, Carbon Dioxide 30, Anion Gap 8.8, BUN 15, Creatinine 0.90, Estimated Creat Clear 87, Estimated GFR 64, Est GFR ( Amer) 78, Glucose 117 H, Calcium 9.2 I & O for Last 24 hours: Intake & Output 01/13/21 01/14/21 01/15/21 01/16/21 11:59 11:59 11:59 11:59 Intake Total 0 / 0 120 / 120 120 / 120 Output Total 2275 / 2275 Balance 0 / -700 -2155 / -2155 120 / 120 Weight 185 lb 3.2 oz 186 lb 9 oz 181 lb 7 oz - Constitutional no acute distress Comments: Sitting up in bed eating her breakfast - *Routine Respiratory Exam Present: CTA bilaterally (Anteriorly and posteriorly) - *Routine Cardiovascular Exam Present: RRR (Monitor showing sinus tach 100 110.) - *Routine Abdominal Exam Present: soft, normoactive bowel sounds. Absent: tenderness - *Routine Extremities Exam Absent: edema Assessment and Plan (1) Syncope Status: Acute Category: Medical Code(s): R55 - Syncope and collapse (2) Anemia Status: Acute Category: Medical Code(s): D64.9 - Anemia, unspecified (3) Chest pain Status: Acute Qualifiers: Chest pain type: unspecified Qualified Code(s): R07.9 - Chest pain, unspecified Category: Medical Code(s): R07.9 - Chest pain, unspecified (4) Hypertension Status: Chronic Qualifiers: Hypertension type: essential hypertension Qualified Code(s): I10 - Essential (primary) hypertension Category: Medical Code(s): I10 - Essential (primary) hypertension (5) Hypothyroidism Status: Chronic Category: Medical Code(s): E03.9 - Hypothyroidism, unspecified (6) Stented coronary artery Status: Chronic Category: Surgical Code(s): Z95.5 - Presence of coronary angioplasty implant and graft (7) CAD (coronary artery disease) Status: Acute Category: Medical Code(s): I25.10 - Atherosclerotic heart disease of [place] coronary artery without angina pectoris (8) Hypokalemia Status: Acute Category: Medical Code(s): E87.6 - Hypokalemia - Assessment and plan all Dx Assessment and Plan for all problems:: Cardiology is following as well. <Jamie Chahal - Last Filed: 01/16/21 08:47> Internal Medicine - PN: Subj *Date: 01/16/21 *Time: 08:46 Exam Vital signs and Labs for Last 24 Hours:
--- NOTE | 2021-01-16 08:34 | HMH.PNCARD ---
Subjective Date: 01/16/21 Time: 09:00 Principal diagnosis: Chest pain Interval history: 60-year-old female was admitted with midsternal chest pain. Patient did undergo left heart catheterization yesterday. Severe in-stent restenosis in the ostial circumflex artery and successful stenting of the left main artery extending into the circumflex artery was noted. Patient is currently on Plavix along with a baby aspirin. Patient needs to continue this for dual antiplatelet therapy. Isosorbide 30 mg at bedtime was started last evening to alleviate spasms. Patient states she tolerated the long-acting nitrate with no issues. Patient denies chest pain, tightness or pressure. Patient denies shortness of breath. No swelling of the lower extremities noted. Patient denies palpitations. Heart rate on special delivery carrier reveals sinus tach at 110 bpm. Patient had not been given her atenolol last evening. Will restart the atenolol to regulate heart rate. Echocardiogram still pending at this time. Waiting on the results of the echo from [facility]. IMPRESSION Severe in-stent restenosis in the ostial circumflex artery Successful stenting of the left main artery extending into the circumflex artery critical disease reduced to 0% with 1 stent in the [place] circumflex artery 1 stent into the left main artery Normal ejection fraction Moderately elevated LVEDP PLAN 1. Dual antiplatelet therapy 2. Long-acting nitrates to alleviate spasm. Start 30 mg a day and then uptitrate as tolerated 3. Standard therapy for ischemic heart disease 4. LDL less than 55 5. Cardiac rehabilitation 6. Avoidance of tobacco products Discussed plan of care with Dr. Goode. From a cardiac standpoint patient may be discharged home. Patient is currently taking all the appropriate medication for standard ischemic heart disease. We will continue the isosorbide 30 mg at night. Will try to uptitrate the dose of the isosorbide at cardiology follow-up. Patient is to be set up for cardiac rehabilitation. Encourage diet and exercise. No strenuous activity or heavy lifting until follow-up with cardiology in 1 week. Thank you for letting us participate in the care of this patient. Exam Vital signs and Labs for Last 24 Hours: Temp Pulse Resp BP Pulse Ox 98.5 F 100 H 18 139/54 L 98 01/16/21 08:00 01/16/21 08:00 01/16/21 08:00 01/16/21 08:00 01/16/21 08:00 Laboratory Results - last 24 hr 01/15/21 15:13: Activated Clotting Time 258 H* 01/16/21 07:15: WBC 6.4, RBC 3.44 L, Hgb 10.6 L, Hct 32.5 L, MCV 94.5, MCH 30.7, MCHC 32.5, RDW 15.1, Plt Count 330, MPV 7.3 L, Neut % (Auto) 66.7, Lymph % (Auto) 21.8, [place] % (Auto) 7.5, Eos % (Auto) 3.5, Baso % (Auto) 0.5, Neut # (Auto) 4.3, Lymph # (Auto) 1.4, [place] # (Auto) 0.5, Eos # (Auto) 0.2, Baso # (Auto) 0.0 01/16/21 07:15: Sodium 138, Potassium 3.8, Chloride 103, Carbon Dioxide 30, Anion Gap 8.8, BUN 15, Creatinine 0.90, Estimated Creat Clear 87, Estimated GFR 64, Est GFR ( Amer) 78, Glucose 117 H, Calcium 9.2 I & O for Last 24 hours: Intake & Output 01/13/21 01/14/21 01/15/21 01/16/21 23:59 23:59 23:59 23:59 Intake Total 0 / 0 240 / 240 240 / 240 Output Total 1150 / 1150 1125 / 1125 0 / 0 Balance -1150 / -1150 -885 / -885 240 / 240 Weight 200 lb 185 lb 3.2 oz 186 lb 9 oz 181 lb 7 oz - Constitutional no acute distress, obese, cooperative - *Routine HEENT Exam Head: Present: normocephalic ENT: Present: mucous membranes moist - *Routine Neck Exam Present: supple, full ROM, normal carotid upstroke. Absent: JVD, carotid bruit, lymphadenopathy - *Routine Respiratory Exam Present: accessory muscle use, CTA bilaterally - *Routine Cardiovascular Exam Present: RRR, Normal S1, Normal S2, tachycardia. Absent: murmur - *Routine Abdominal Exam Present: soft, normoactive bowel sounds, obese. Absent: firm, rigid - *Routine Extremities Exam Present: full ROM, pulses intact, normal c
--- NOTE | 2021-01-16 10:21 | HMH.PHACLD ---
Shruthi Giles has received discharge medication counseling on the following medications: MD CONTINUING WITH LOSARTAN 100 MG DAILY, ATORVASTATIN 40 MG HS, ASPIRIN EC 81 MG DAILY, ATENOLOL 12.5 MG DAILY, AND CLOPIDOGREL 75 MG DAILY.
--- NOTE | 2021-01-16 14:07 | HMH.DCSUM ---
General - General Admission date:: 01/14/21 Discharge date: 01/16/21 HPI HPI: Mrs. Giles is a 60 year old female who presented to [facility] ER last night with complaints of chest pain and feelings as if she were going to pass out. She states she was walking to her neighbors house yesterday, which is a few hundred feet from her house, and she had to stop 4 times due to chest pain. She states the pain was located in the center of her chest and radiated into her left arm. Patient states rest relieved her symptoms. Afterwards, during the evening last night, she was profoundly weak and required assistance from her to ambulate through her house. Just before midnight he became more worried and tried to get her in to the car to come to the ER, but he states she passed out so he called 911 and EMS brought patient to the ER. Mrs. Giles is a fairly new patient to my practice, about 3 months. She reports having problems with exertional chest pain and passing out episodes for about the past 9 months. She has had two separate left heart caths with interventions (May and June of 2020) and has had subsequent cardiac testing including stress test and echocardiography. She states she was started on Ranexa and has had the dose increased and she feels worse the more of it she takes. She states she frequently feels sensations of racing heart and palpitations. She states that she is compliant in taking her medications. Hospital Course Hospital Course: The patient had a head CT showing nothing acute. She had an abdominal pelvic CT showing some thickening of the antrum of the stomach and pyloric region and an upper GI was suggested. She was admitted and cardiology was consulted. Her cardiac enzymes were negative and her Ranexa was held. She was kept on a continuous property assessment monitor. Cardiology saw the patient and recommended a left heart cath due to typical chest pain and recent stenting. They also ordered an echo. Her heart cath showed severe in-stent restenosis in the ostial circumflex artery. There was successful stenting of the left main artery extending into the circumflex artery with 1 stent in the [place] circumflex and one stent into the left main. The patient's EF was normal and her LVEDP was moderately elevated. Cardiology recommended dual antiplatelet therapy and long-acting nitrates to alleviate spasm. By 01/16/2021, she denied any chest pain or shortness of breath. She went up to the restroom without any dizziness. She was stable to be discharged home and will follow up with cardiology in [address] Chahal in 2 weeks. Of note, her echo revealed an EF of 55% with trace mitral regurgitation. Objective Vital signs: Temp Pulse Resp BP Pulse Ox 98.5 F 100 H 18 139/54 L 98 01/16/21 08:00 01/16/21 08:00 01/16/21 08:00 01/16/21 08:00 01/16/21 08:00 Narrative: - Constitutional no acute distress - *Routine HEENT Exam Head: Present: normocephalic Eye: Present: EOMI, PERRL ENT: Present: mucous membranes moist - *Routine Neck Exam Present: supple. Absent: lymphadenopathy - *Routine Respiratory Exam Present: CTA bilaterally - *Routine Cardiovascular Exam Present: RRR - *Routine Abdominal Exam Present: soft, normoactive bowel sounds. Absent: tenderness - *Routine Extremities Exam Absent: cyanosis, clubbing, edema - *Routine Skin Exam Present: warm. Absent: rash - *Routine Neurological Exam Present: alert, oriented X3 Results Labs on day of discharge: Labs from last 24 hours 01/16/21 01/16/21 01/15/21 07:15 07:15 15:13 WBC 6.4 RBC 3.44 L Hgb 10.6 L Hct 32.5 L MCV 94.5 MCH 30.7 MCHC 32.5 RDW 15.1 Plt Count 330 MPV 7.3 L Neut % (Auto) 66.7 Lymph % (Auto) 21.8 Mcdonald % (Auto) 7.5 Eos % (Auto) 3.5 Baso % (Auto) 0.5 Neut # (Auto) 4.3 Lymph # (Auto) 1.4 Mcdonald # (Auto) 0.5 Eos # (Auto) 0.2 Baso # (Auto) 0.0 Activa
== END 2021-01-16 10:30 | disposition home or self-care (01) ==
LOC: ER 01-14 01:30 → 2ND 01-14 03:05
PROVIDERS: Internal Medicine; Admitting Provider Family Medicine; Emergency Provider Emergency Medicine; PCP Family Medicine; Visit Provider Family Medicine
DX: T82.855A Stenosis of coronary artery stent, initial encounter (principal); I25.110 Atherosclerotic heart disease of native coronary artery with unstable angina pectoris; R55 Syncope and collapse; I10 Essential (primary) hypertension; E78.5 Hyperlipidemia, unspecified; E03.9 Hypothyroidism, unspecified; D64.9 Anemia, unspecified; E87.6 Hypokalemia; Z95.5 Presence of coronary angioplasty implant and graft; Z79.02 Long term (current) use of antithrombotics/antiplatelets; Z79.899 Other long term (current) drug therapy
CPT/HCPCS: 36415; 70450; 71045; 74177; 80048; 80053; 81001; 82803; 83540; 83735; 84100; 84439; 84443; 84484; 85025; 85347; 87581; 87633; 87798; 92928; 93005; 93306; 93458; 96374; 99152; 99153; 99282; C1725; C1760; C1769; C1876; C9600; G0378; J1644; J2405; Q9967

== ENCOUNTER → 2021-01-20 11:07 | Outpatient (CLI) | payer OTHER, SELFPAY ==
[2021-01-20 11:21] LABS: Basophils % 0.5 % (0.1-2.0); Eosinophils # 0.2 K/mm3 (0.0-0.4); Eosinophils % 3.8 % (0.1-12.0); Hematocrit 36.6 % (37.0-47.0); Hemoglobin 11.6 g/dL (12.2-16.2); Lymphocytes # 1.4 K/mm3 (0.7-4.5); Lymphocytes % 24.2 % (10-50); Mean Corpuscular HGB Conc 31.8 g/dL (31.8-35.4); Mean Corpuscular Hemoglobin 30.7 pg (27.0-31.2); Mean Corpuscular Volume 96.4 fl (81-99); Mean Platelet Volume 7.9 fl (7.4-10.4); Monocytes # 0.3 K/mm3 (0.1-1.0); Monocytes % 6.1 % (1.7-9.3); Neutrophils # 3.6 K/mm3 (1.8-7.8); Neutrophils % 65.4 % (37.0-80.0); Platelet Count 401 K/mm3 (142-424); Red Blood Count 3.79 M/mm3 (4.20-5.40); White Blood Count 5.6 K/mm3 (4.8-10.8)
[2021-01-20 11:58] LABS: Alanine Aminotransferase 26 U/L (12-78); Albumin Level 4.4 g/dl (3.5-5.0); Albumin/Globulin Ratio 1.6 (1.1-1.8); Alkaline Phosphatase 65 U/L (38-126); Anion Gap 11.1 mEq/L (5-15); Aspartate Amino Transferase 32 U/L (14-36); Bilirubin,Total 0.4 mg/dl (0.2-1.3); Blood Urea Nitrogen 13 mg/dl (7-17); Calcium 9.7 mg/dl (8.4-10.2); Carbon Dioxide 29 mmol/L (22.0-30.0); Chloride 101 mmol/L (98-107); Estimated Glomerular Filt Rate 73 ml/min (>60); GFR (African American) 89 ML/MIN (>60); Globulin 2.7 g/dL (1.3-3.2); Glucose 170 mg/dl (74-100); Potassium 4.1 mmoL/L (3.5-5.1); Sodium 137 mmol/L (136-145); Total Protein,Serum 7.1 g/dl (6.3-8.2)
== END ==
LOC: LAB 11:08
PROVIDERS: Visit Provider Internal Medicine
DX: Z95.5 Presence of coronary angioplasty implant and graft (principal)
CPT/HCPCS: 36415; 80053; 85025

== ENCOUNTER 2021-02-01 09:59 | Outpatient (RCR) | payer OTHER, SELFPAY | END 2021-05-25 11:16 | disposition home or self-care (01) | LOC: PT 09:59 | PROVIDERS: Visit Provider Internal Medicine | DX: Z95.5 Presence of coronary angioplasty implant and graft (principal); I25.110 Atherosclerotic heart disease of native coronary artery with unstable angina pectoris | CPT/HCPCS: 93798 ==

== ENCOUNTER → 2021-02-19 14:11 | Outpatient (CLI) | payer OTHER, SELFPAY ==
--- NOTE | 2021-02-19 14:12 | CA_ITS ---
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 [place]: AZALIA Laterality: Bilateral Study Quality: Good Indications: dizziness and numbness Risk Factors Hypertension: CAD, Doppler Spectral Velocity Analysis ECA (R) 94.20/9.40 cm/s ECA (L) 105.40/11.10 cm/s dICA (R) 103.70/30.80 cm/s dICA (L) 75.40/24.00 cm/s Ramez (R) 105.40/29.10 cm/s Ramez (L) 98.50/23.10 cm/s pICA (R) 87.40/16.30 cm/s pICA (L) 106.20/16.30 cm/s dCCA (R) 105.90/19.20 cm/s dCCA (L) 86.50/18.00 cm/s pCCA (R) 105.90/19.20 cm/s pCCA (L) 96.00/18.80 cm/s Vert (R) 79.70/18.80 cm/s Vert (L) 61.70/17.10 cm/s ICA/CCA 1.00 ICA/CCA 1.10 Findings Duplex evaluation demonstrates antegrade flow of the bilateral Vertebral Arteries. Duplex evaluation demonstrates stenosis of the right proximal internal carotid artery in the range of 20-49% with PSV <140 cm/sec, EDV <100 cm/sec, and IC/CC Ratio <4.0.Duplex evaluation demonstrates stenosis of the left proximal internal carotid artery in the range of 20-49% with PSV <140 cm/sec, EDV <100 cm/sec, and IC/CC Ratio <4.0. Conclusion Duplex evaluation demonstrates antegrade flow of the bilateral Vertebral Arteries. Duplex evaluation demonstrates stenosis of the right proximal internal carotid artery in the range of 20-49% with PSV <140 cm/sec, EDV <100 cm/sec, and IC/CC Ratio <4.0.Duplex evaluation demonstrates stenosis of the left proximal internal carotid artery in the range of 20-49% with PSV <140 cm/sec, EDV <100 cm/sec, and IC/CC Ratio <4.0. Electronically signed by : Yonatan Sneed MD 02/19/2021 15:46:16
== END ==
LOC: RT 14:12
PROVIDERS: PCP Family Medicine; Visit Provider Urology
DX: R42 Dizziness and giddiness (principal); R20.0 Anesthesia of skin
CPT/HCPCS: 93880

== ENCOUNTER → 2021-05-21 08:55 | Outpatient (CLI) | payer BC, SELFPAY ==
[2021-05-21 09:21] LABS: Hemoglobin A1C 6.4 % (4.0-6.0)
[2021-05-21 09:49] LABS: Chol/HDL Ratio 2.3 (1-3.5); Cholesterol 149 mg/dl (140-200); HDL Cholesterol 64 mg/dl (40-60); Triglycerides 75 mg/dl (30-150); VLDL Cholesterol 15 mg/dL (0-40)
[2021-05-21 10:03] LABS: Direct LDL Cholesterol 67.62 mg/dL (100-129)
[2021-05-21 10:54] LABS: Vitamin B12 312 pg/mL (239-931)
== END ==
LOC: LAB 08:56
PROVIDERS: Visit Provider Nurse Practitioner Family
DX: I25.118 Atherosclerotic heart disease of native coronary artery with other forms of angina pectoris (principal); I10 Essential (primary) hypertension; R20.0 Anesthesia of skin; R20.2 Paresthesia of skin; R73.9 Hyperglycemia, unspecified
CPT/HCPCS: 36415; 80061; 82607; 82746; 83036; 84443

== ENCOUNTER → 2021-05-24 07:29 | Outpatient (CLI) | payer BC, SELFPAY ==
[2021-05-25 08:51] LABS: Homocyst(e)ine 15.3 umol/L (0.0-14.5)
[2021-05-27 18:30] LABS: Methylmalonic Acid 159 nmol/L (0-378)
== END ==
PROVIDERS: Visit Provider Nurse Practitioner Family
DX: E53.8 Deficiency of other specified B group vitamins (principal)
CPT/HCPCS: 36415; 82131; 83090

== ENCOUNTER → 2021-05-25 07:33 | Outpatient (CLI) | payer BC, SELFPAY ==
--- NOTE | 2021-05-25 07:33 | MR_ITS ---
PROCEDURE: MR HEAD/BRAIN WO CON CLINICAL INDICATION: EVAL FOR CVA, VASCULAR ABNORMALITY, PETAL SHAPER HAND PATHLOGY Headache and numbness in left arm and leg. Numbness around the mouth COMPARISON: No exams were available for comparison TECHNIQUE: Routine multiplanar multi echo sequences are performed without gadolinium enhancement. FINDINGS: No midline shift, mass effect, intracranial hemorrhage, or hydrocephalus. No evidence of acute infarction. Cerebellopontine angles, cerebellum, brainstem, and mid brain have an unremarkable appearance. There are few nonspecific small T2 white matter hyperintensities. The pituitary, optic chiasm, corpus callosum, and craniocervical junction have an unremarkable appearance. There is some asymmetry in the hippocampal gyri with slight decrease in volume of the right hippocampal gyrus compared to the left. This is of questionable clinical significance. No abnormal T2 signal is evident at this region. No mastoid effusion or sinus air-fluid level. IMPRESSION: 1. No acute intracranial findings. 2. Minimal asymmetry in the hippocampal gyri the right side slightly smaller than the left which is of questionable clinical significance without signal alteration.. Please correlate with clinical parameters Dictated by: Yonatan Sneed MD 05/25/2021 09:34 Yonatan Sneed MD in [place] 05/25/2021 09:34
== END ==
PROVIDERS: PCP Family Medicine; Visit Provider Specialist
DX: R51.9 Headache, unspecified (principal); R29.2 Abnormal reflex; I25.118 Atherosclerotic heart disease of native coronary artery with other forms of angina pectoris; I10 Essential (primary) hypertension; R20.0 Anesthesia of skin; R20.2 Paresthesia of skin; R20.8 Other disturbances of skin sensation; R53.1 Weakness; R73.9 Hyperglycemia, unspecified
CPT/HCPCS: 70551

== ENCOUNTER → 2021-07-09 14:06 | Outpatient (CLI) | payer BC, SELFPAY | LOC: SL 14:08 | PROVIDERS: PCP Family Medicine; Visit Provider Nurse Practitioner Family | DX: G47.33 Obstructive sleep apnea (adult) (pediatric) (principal) | CPT/HCPCS: G0399 ==

== ENCOUNTER → 2021-07-10 10:31 | Outpatient (CLI) | payer BC, SELFPAY ==
[2021-07-10 10:46] LABS: Basophils % 0.6 % (0.1-2.0); Eosinophils # 0.1 K/mm3 (0.0-0.4); Eosinophils % 1.5 % (0.1-12.0); Hematocrit 36.8 % (37.0-47.0); Hemoglobin 11.8 g/dL (12.2-16.2); Lymphocytes # 1.3 K/mm3 (0.7-4.5); Mean Corpuscular HGB Conc 32.1 g/dL (31.8-35.4); Mean Corpuscular Hemoglobin 30.3 pg (27.0-31.2); Mean Corpuscular Volume 94.4 fl (81-99); Mean Platelet Volume 8.4 fl (7.4-10.4); Monocytes # 0.5 K/mm3 (0.1-1.0); Monocytes % 8.1 % (1.7-9.3); Neutrophils # 4.2 K/mm3 (1.8-7.8); Neutrophils % 68.8 % (37.0-80.0); Platelet Count 437 K/mm3 (142-424); Red Cell Distribution Width 14.8 % (11.5-17.5)
[2021-07-10 11:36] LABS: Chloride 97 mmol/L (98-107); Potassium 4.2 mmoL/L (3.5-5.1); Sodium 134 mmol/L (136-145)
[2021-07-10 11:39] LABS: Anion Gap 13.2 mEq/L (5-15); Blood Urea Nitrogen 14 mg/dl (7-17); Carbon Dioxide 28 mmol/L (22.0-30.0); Estimated Glomerular Filt Rate 85 ml/min (>60); GFR (African American) 103 ML/MIN (>60)
[2021-07-10 11:40] LABS: Calcium 9.2 mg/dl (8.4-10.2); Glucose 184 mg/dl (74-100)
[2021-07-10 11:47] LABS: NT Pro Brain Natriuretic Pep. 59.5 pg/mL (0-125)
[2021-07-10 12:12] LABS: Troponin I < 0.01 ng/ml (0.00-0.034)
== END ==
PROVIDERS: Visit Provider Urology
DX: R06.02 Shortness of breath (principal); R42 Dizziness and giddiness; I25.118 Atherosclerotic heart disease of native coronary artery with other forms of angina pectoris; I10 Essential (primary) hypertension; E78.2 Mixed hyperlipidemia; I65.29 Occlusion and stenosis of unspecified carotid artery; R20.0 Anesthesia of skin; R51.9 Headache, unspecified; Z95.5 Presence of coronary angioplasty implant and graft
CPT/HCPCS: 36415; 80048; 83880; 84484; 85025

== ENCOUNTER → 2021-07-18 14:11 | Outpatient (CLI) | payer BC, SELFPAY ==
--- NOTE | 2021-07-18 14:11 | MR_ITS ---
PROCEDURE: MR ANGIO HEAD WO CON CLINICAL INDICATION: Strokelike symptoms Headache and dizziness with nausea numbness in face and hands COMPARISON: No exams were available for comparison TECHNIQUE: 3D [id number] images are obtained with multi slab reformats. FINDINGS: No aneurysm, AVM, or major intracranial occlusive process apparent. The occipital branch of the left posterior cerebral artery is smaller than the right side. This is of questionable clinical significance. No other significant anomalies evident. IMPRESSION: No aneurysm, AVM, or major intracranial occlusive process evident. Incidental note is made of a small occipital branch of the left posterior cerebral artery compared to the right side of questionable clinical significance. Dictated by: Yonatan Sneed MD 07/18/2021 17:35 Yonatan Sneed MD in [place] 07/18/2021 17:35
== END ==
LOC: RAD 14:11
PROVIDERS: PCP Family Medicine; Visit Provider Specialist
DX: R29.90 Unspecified symptoms and signs involving the nervous system (principal)
CPT/HCPCS: 70544

== ENCOUNTER → 2021-07-18 15:01 | Outpatient (CLI) | payer BC, SELFPAY ==
[2021-07-20 08:30] LABS: Homocyst(e)ine 11.9 umol/L (0.0-14.5)
== END ==
PROVIDERS: Visit Provider Specialist
DX: E53.8 Deficiency of other specified B group vitamins (principal)
CPT/HCPCS: 36415; 83090

== ENCOUNTER 2021-11-12 02:01 | Emergency (ER) | payer BC, SELFPAY ==
--- NOTE | 2021-11-12 | ECG_ITS ---
APPROVED REPORT Exam: Resting ECG HR:92 bpm ECG Measurements Heart Rate 92 AXES WV 166 P 56 QRSd 86 QRS 17 QT 354 T 59 QTc 437 Conclusion Normal sinus rhythm Normal ECG Electronically signed by : Harpreet Cole MD 11/14/2021 13:28:07
[2021-11-12 02:03] VITALS: BP 154/64; PULSE 88; RESP 18; TEMP 37.1; O2SAT 95; BMI 34.7
[2021-11-12 02:30] VITALS: BMI 34.7
--- NOTE | 2021-11-12 02:33 | XR_ITS ---
PROCEDURE INFORMATION: Exam: XR Chest Exam date and time: 11/12/2021 2:33 AM Age: 61 years old Clinical indication: Shortness of breath; Additional info: SOA TECHNIQUE: Imaging protocol: XR of the chest. Views: 2 views. COMPARISON: CR XR CHEST PORTABLE 01/13/2021 11:25 PM FINDINGS: Lungs: The lungs appear clear. No focal areas of consolidation. Pleural spaces: No pleural effusions or appreciable adenopathy. Negative for pneumothorax. Heart/Mediastinum: Cardiac silhouette and pulmonary vasculature are within range of normal. Coronary stent is seen overlying the heart. Bones/joints: There is no evidence of acute fracture. There is increase in thoracic kyphosis.The thoracic spine demonstrates mild degenerative changes at multiple levels. IMPRESSION: Negative for an acute cardiopulmonary abnormality. Stable exam.
[2021-11-12 03:01] VITALS: BP 124/58; PULSE 84; O2SAT 95
--- NOTE | 2021-11-12 03:16 | HMH.EDSOB ---
ED Disposition Clinical Impression: COVID-19 Disposition: Home, Self-Care Condition on Discharge: Good Instructions: DI for COVID-19 (Suspected or Confirmed ) Additional Instructions: call pcp for follow up Referrals: Jamie Chahal MD [Primary Care Provider] - - Critical Care Critical Care Time: No Attestation: On 11/12/21, the high probability of a clinically significant, sudden or life threatening deterioration of the following system(s) required my full and direct attention, intervention and personal management. The time I documented below is in addition to time spent performing reported procedures but includes the following listed in this critical care notation. Medical Decision Making - Medical Records Medical records reviewed: Yes: I reviewed the patient's medical records. - Alexi Inquiry Pt receiving controlled substance: No Vital Signs: 11/12/21 02:03 Temperature 98.7 F Temperature Source Oral Pulse Rate [Apical] 88 Respiratory Rate 18 Blood Pressure [Right Arm] 154/64 H Blood Pressure Mean [Right Arm] 94 Blood Pressure Source [Right Arm] Automatic Cuff Blood Pressure Position [Right Arm] Sitting 02 Sat by Pulse Oximetry 95 Oxygen Delivery Method Room Air - Lab Data Lab results reviewed: Yes: I reviewed the patient's lab results. Lab Results 11/12/21 02:23: WBC 6.9, RBC 3.61 L, Hgb 11.5 L, Hct 35.1 L, MCV 97.3, MCH 31.9 H, MCHC 32.8, RDW 14.0, Plt Count 390, MPV 7.7, Neut % (Auto) 79.8, Lymph % (Auto) 9.6 L, [place] % (Auto) 8.3, Eos % (Auto) 1.7, Baso % (Auto) 0.7, Neut # (Auto) 5.5, Lymph # (Auto) 0.7, [place] # (Auto) 0.6, Eos # (Auto) 0.1, Baso # (Auto) 0.1, ESR 58 H 11/12/21 02:23: Sodium 130 L, Potassium 4.0, Chloride 97 L, Carbon Dioxide 29, Anion Gap 8.0, BUN 15, Creatinine 0.90, Estimated Creat Clear 90, Estimated GFR 64, Est GFR ( Amer) 77, Glucose 124 H, Calcium 9.4, Magnesium 1.7, Total Bilirubin 0.5, Direct Bilirubin 0.0, Conjugated Bilirubin 0.0, Indirect Bilirubin 0.5, Unconjugated Bilirubin 0.5, AST 35, ALT 19, Alkaline Phosphatase 87, Troponin I < 0.01, C-Reactive Protein 1.4, NT-Pro-B Natriuret Pep 107, Total Protein 6.8, Albumin 4.1, Procalcitonin 0.057, TSH 0.02 L, Thyroxine (T4) 12.8 H 11/12/21 02:23: SARS-CoV-2 (PCR) Detected A, Influenza A Untype (PCR) Not detected, Influenza Type B (PCR) Not detected Result diagrams: 11/12/21 02:23 11/12/21 02:23 Orders (Tests/Meds): ED MEDICATIONS Generic Name Dose Route Start Last Admin Trade Name Freq PRN Reason Stop Dose Admin Sodium Chloride 1,000 mls @ 999 mls/hr 11/12/21 02:45 11/12/21 02:49 Sod Chlor 0.9% 1000ml Bag IV 11/12/21 03:45 999 mls/hr .Q1H1M KIRAN Administration Discontinued Medications Generic Name Dose Route Start Last Admin Trade Name Freq PRN Reason Stop Dose Admin Dexamethasone Sodium Phosphate 10 mg 11/12/21 03:59 Dexamethasone 4mg/Ml 5ml Mdv IV 11/12/21 04:00 ONCE ONE ORDERS Category Date Time Status Troponin I Q3H Lab 11/12/21 05:45 Ordered Troponin I Q3H Lab 11/12/21 08:45 Ordered ECG Request by /Marsha Stat Y 11/12/21 02:33 Ordered - Radiology Data #1 Image(s): Chest Image Reviewed: Yes I have reviewed radiologist's interpretation Preliminary Findings: Normal/NAD - ECG Data Tracing #1 Normal Sinus Rhythm: Yes Ischemic changes: non-specific ST-T wave changes Medical Decision Narrative: has covid-19 and will arrange f/u infusion at this time Resp/SOB HPI - General Chief Complaint: Shortness of Breath/Dyspnea Stated Complaint: SOA Time Seen by Provider: 11/12/21 03:00 Mode of Arrival: Ambulatory Source of Information: Patient, Medical Record Limitations: No Limitations Description of Symptoms (Recalled from ER Triage Doc. by RN): Patient states that for the prior two months she has had intermittent instances of shortness of air. Tonight she states that it was so severe she was unable to wear her cpap machine. Additional c/o peewee
[2021-11-12 03:22] LABS: Influenza A, PCR Not Detected (NotDetected); Influenza B, PCR Not Detected (NotDetected)
[2021-11-12 03:24] LABS: Basophils # 0.1 K/mm3 (0-0.2); Basophils % 0.7 % (0.1-2.0); Eosinophils # 0.1 K/mm3 (0.0-0.4); Eosinophils % 1.7 % (0.1-12.0); Hematocrit 35.1 % (37.0-47.0); Hemoglobin 11.5 g/dL (12.2-16.2); Lymphocytes # 0.7 K/mm3 (0.7-4.5); Lymphocytes % 9.6 % (10-50); Mean Corpuscular HGB Conc 32.8 g/dL (31.8-35.4); Mean Corpuscular Hemoglobin 31.9 pg (27.0-31.2); Mean Corpuscular Volume 97.3 fl (81-99); Mean Platelet Volume 7.7 fl (7.4-10.4); Monocytes # 0.6 K/mm3 (0.1-1.0); Monocytes % 8.3 % (1.7-9.3); Neutrophils # 5.5 K/mm3 (1.8-7.8); Neutrophils % 79.8 % (37.0-80.0); Platelet Count 390 K/mm3 (142-424); Red Blood Count 3.61 M/mm3 (4.20-5.40); White Blood Count 6.9 K/mm3 (4.8-10.8)
[2021-11-12 03:31] LABS: Alanine Aminotransferase 19 U/L (12-78); Albumin Level 4.1 g/dl (3.5-5.0); Alkaline Phosphatase 87 U/L (38-126); Aspartate Amino Transferase 35 U/L (14-36); Bilirubin,Indirect 0.5 mg/dL (0.0-0.9); Bilirubin,Total 0.5 mg/dl (0.2-1.3); Bilirubin,Unconjugated 0.5 mg/dL (0.0-1.1); Blood Urea Nitrogen 15 mg/dl (7-17); Calcium 9.4 mg/dl (8.4-10.2); Carbon Dioxide 29 mmol/L (22.0-30.0); Chloride 97 mmol/L (98-107); Creatinine Clearance Estimated 90 mL/min (50-200); Estimated Glomerular Filt Rate 64 ml/min (>60); GFR (African American) 77 ML/MIN (>60); Glucose 124 mg/dl (74-100); Magnesium 1.7 mg/dl (1.6-2.3); Sodium 130 mmol/L (136-145); Total Protein,Serum 6.8 g/dl (6.3-8.2)
[2021-11-12 03:36] LABS: C-Reactive Protein 1.4 mg/L (0-4)
[2021-11-12 03:44] VITALS: BP 129/54; PULSE 81; RESP 12; O2SAT 97
[2021-11-12 03:46] LABS: NT Pro Brain Natriuretic Pep. 107 pg/mL (0-125)
[2021-11-12 03:48] LABS: Coronavirus 19, PCR Detected (NotDetected); Troponin I < 0.01 ng/ml (0.00-0.034)
[2021-11-12 03:50] LABS: Procalcitonin 0.057 ng/mL (0.0-2.0); T4 (Thyroxine) 12.8 ug/dl (5.53-11.0)
[2021-11-12 03:57] LABS: Erythrocyte Sedimentation Rate 58 mm/hr (0-30)
[2021-11-12 04:00] VITALS: BP 128/50; PULSE 86; RESP 14; O2SAT 98
[2021-11-12 04:04] LABS: Thyroid Stimulating Hormone 0.02 uIU/mL (0.465-4.68)
[2021-11-12 04:12] VITALS: BP 128/50; PULSE 78; RESP 20; TEMP 37.1; O2SAT 99
== END 2021-11-12 04:33 | disposition home or self-care (01) ==
PROVIDERS: Emergency Provider Emergency Medicine; PCP Family Medicine
DX: U07.1 COVID-19 (principal); I25.10 Atherosclerotic heart disease of native coronary artery without angina pectoris; K21.9 Gastro-esophageal reflux disease without esophagitis; E03.9 Hypothyroidism, unspecified; I10 Essential (primary) hypertension; E78.5 Hyperlipidemia, unspecified; Z79.899 Other long term (current) drug therapy
CPT/HCPCS: 71046; 80048; 80076; 83735; 83880; 84145; 84436; 84443; 84484; 85025; 85651; 86140; 93005; 96365; 96367; 99283; C9803; U0003; U0005

== ENCOUNTER → 2021-11-13 09:02 | Outpatient (CLI) | payer BC, SELFPAY ==
[2021-11-13] VITALS (8 sets, daily range): BP systolic 125–157; BP diastolic 55–78; PULSE 59–70; RESP 16–18; TEMP 36.7; O2SAT 97–100
== END ==
PROVIDERS: PCP Emergency Medicine; Visit Provider Emergency Medicine
DX: U07.1 COVID-19 (principal); Z23 Encounter for immunization
CPT/HCPCS: 96365

== ENCOUNTER → 2022-01-09 16:34 | Outpatient (CLI) | payer BC, SELFPAY | LOC: RT 16:35 | PROVIDERS: PCP Family Medicine; Visit Provider Nurse Practitioner Family | DX: G47.33 Obstructive sleep apnea (adult) (pediatric) (principal); R53.83 Other fatigue | CPT/HCPCS: 94762 ==

== ENCOUNTER → 2022-03-13 13:40 | Outpatient (CLI) | payer BC, SELFPAY ==
[2022-03-13 13:48] LABS: Coronavirus 19, PCR Not Detected (NotDetected); Influenza A, PCR Not Detected (NotDetected); Influenza B, PCR Not Detected (NotDetected)
[2022-03-13 14:34] LABS: Basophils % 0.5 % (0.1-2.0); Eosinophils # 0.2 K/mm3 (0.0-0.4); Eosinophils % 2.8 % (0.1-12.0); Hematocrit 35.4 % (37.0-47.0); Hemoglobin 11.4 g/dL (12.2-16.2); Lymphocytes # 1.5 K/mm3 (0.7-4.5); Lymphocytes % 19.9 % (10-50); Mean Corpuscular HGB Conc 32.2 g/dL (31.8-35.4); Mean Corpuscular Hemoglobin 30.5 pg (27.0-31.2); Mean Corpuscular Volume 94.6 fl (81-99); Mean Platelet Volume 7.4 fl (7.4-10.4); Monocytes # 0.5 K/mm3 (0.1-1.0); Monocytes % 6.4 % (1.7-9.3); Neutrophils # 5.2 K/mm3 (1.8-7.8); Neutrophils % 70.4 % (37.0-80.0); Platelet Count 443 K/mm3 (142-424); Red Blood Count 3.74 M/mm3 (4.20-5.40); Red Cell Distribution Width 13.3 % (11.5-17.5); White Blood Count 7.4 K/mm3 (4.8-10.8)
[2022-03-13 15:15] LABS: Free T4 (Free Thyroxine) 1.62 ng/dl (0.78-2.19)
[2022-03-13 15:27] LABS: Thyroid Stimulating Hormone < 0.02 uIU/mL (0.465-4.68)
== END ==
PROVIDERS: PCP Family Medicine; Visit Provider Physician Assistant
DX: Z01.812 Encounter for preprocedural laboratory examination (principal); Z11.52 Encounter for screening for COVID-19; R06.02 Shortness of breath; I25.118 Atherosclerotic heart disease of native coronary artery with other forms of angina pectoris; I20.0 Unstable angina; I10 Essential (primary) hypertension; E78.2 Mixed hyperlipidemia; R20.0 Anesthesia of skin; R42 Dizziness and giddiness; E03.9 Hypothyroidism, unspecified; R53.83 Other fatigue; I63.9 Cerebral infarction, unspecified; Z95.5 Presence of coronary angioplasty implant and graft
CPT/HCPCS: 36415; 84439; 84443; 85025; C9803; U0003; U0005

== ENCOUNTER 2022-03-14 09:19 | Day surgery (SDC) | payer BC, SELFPAY ==
[2022-03-14] VITALS (12 sets, daily range): BP systolic 112–151; BP diastolic 53–80; PULSE 55–78; RESP 16–20; TEMP 36.7; O2SAT 96–99; BMI 35.1
--- NOTE | 2022-03-14 07:08 | IR_ITS ---
APPROVED REPORT Patient Location: Outpatient [place]: TRE Riggins RT (R) PROCEDURES Left heart catheterization Left ventriculogram Selective coronary angiogram INDICATION Known coronary artery disease, History of left main coronary artery stenting, Crescendo angina Informed consent was obtained prior to the procedure. COMPLICATIONS None Estimated Blood Loss: Less than 10 mls TECHNIQUE One percent lidocaine was used to anesthetize the right groin. The right femoral artery was accessed via the Seldinger technique. A 4-Georgian sheath was placed in the right femoral artery. The JL-4 and JR-4 catheter was also used to perform left heart catheterization left ventriculogram and selective coronary angiogram. At the end of the procedure the patient was transferred to the post-op holding area in stable condition for arterial sheath removal. ANGIOGRAPHIC RESULTS The left main artery Has a stent in the proximal segment which extends throughout the entire course into the proximal LAD. The left main stent is widely patent The left anterior descending artery Stent originating off the left main artery into the LAD is patent. The LAD stent has 30% concentric in-stent restenosis The circumflex artery Gives rise to a moderate sized high ramus intermedius which has proximal 20% stenoses. The circumflex artery itself has a stent bifurcating off the left main artery where the proximal circumflex artery has concentric 30% in-stent restenosis The right coronary artery Is a codominant system and has a proximal 30% concentric stenosis with mid vessel 20 and 30% stenoses The PINTO ventriculogram reveals Normal 65% The left ventricular end-diastolic pressure 10 mmHg IMPRESSION Coronary artery disease as described above with wide patency of the stents as described above Normal ejection fraction Normal left ventricular end-diastolic pressure PLAN 1. Medical management 2. Maximize antianginal medications Electronically signed by : Jl Goode MD 03/14/2022 12:33:06
== END 2022-03-14 15:23 | disposition home or self-care (01) ==
LOC: CATHLAB 09:21
PROVIDERS: PCP Family Medicine; Visit Provider Internal Medicine
DX: I25.110 Atherosclerotic heart disease of native coronary artery with unstable angina pectoris (principal); I10 Essential (primary) hypertension; E78.2 Mixed hyperlipidemia; Z95.5 Presence of coronary angioplasty implant and graft; T82.855A Stenosis of coronary artery stent, initial encounter; Z79.899 Other long term (current) drug therapy; K21.9 Gastro-esophageal reflux disease without esophagitis; G43.909 Migraine, unspecified, not intractable, without status migrainosus
CPT/HCPCS: 93458; 99152; C1725; C1769; J1644

== ENCOUNTER 2022-07-10 17:50 | Observation (INO) | payer BC, SELFPAY ==
--- NOTE | 2022-07-10 17:47 | ECG_ITS ---
APPROVED REPORT Exam: Resting ECG HR:70 bpm ECG Measurements Heart Rate 70 AXES MS 170 P 35 QRSd 99 QRS 10 QT 379 T 31 QTc 400 Conclusion SINUS RHYTHM LOW QRS VOLTAGE IN PRECORDIAL LEADS [QRS DEFLECTION < 1.0 mV IN CHEST LEADS] BORDERLINE ECG UNCONFIRMED REPORT Electronically signed by : Harpreet Cole MD 07/13/2022 08:10:58
[2022-07-10 18:05] VITALS: BMI 35.3
--- NOTE | 2022-07-10 18:05 | XR_ITS ---
PROCEDURE INFORMATION: Exam: XR Chest Exam date and time: 07/10/2022 6:05 PM Age: 62 years old Clinical indication: Sternal or substernal pain; Additional info: Chest pain TECHNIQUE: Imaging protocol: Radiologic exam of the chest. Views: 2 views. COMPARISON: CR XR CHEST 2V 11/12/2021 2:55 AM FINDINGS: Lungs: Unremarkable. No consolidation. Pleural spaces: Unremarkable. No pleural effusion. No pneumothorax. Heart/Mediastinum: Unremarkable. No cardiomegaly. Vasculature: Vascular calcifications. Bones/joints: Unremarkable. IMPRESSION: No acute findings.
[2022-07-10 18:07] VITALS: BP 178/68; PULSE 69; RESP 16; TEMP 36.5; O2SAT 99; BMI 35.3
--- NOTE | 2022-07-10 18:13 | PC.NURSE ---
pt to xray at this time
[2022-07-10 18:17] LABS: Chloride 101 mmol/L (98-107); Potassium 4.2 mmoL/L (3.5-5.1); Sodium 139 mmol/L (136-145)
--- NOTE | 2022-07-10 18:17 | PC.NURSE ---
pt back from xr at this time
[2022-07-10 18:20] LABS: Basophils # 0.2 K/mm3 (0-0.2); Basophils % 2.3 % (0.1-2.0); Eosinophils # 0.3 K/mm3 (0.0-0.4); Eosinophils % 4.3 % (0.1-12.0); Hematocrit 37.4 % (37.0-47.0); Hemoglobin 11.7 g/dL (12.2-16.2); Lymphocytes # 1.8 K/mm3 (0.7-4.5); Lymphocytes % 23.5 % (10-50); Mean Corpuscular HGB Conc 31.3 g/dL (31.8-35.4); Mean Corpuscular Hemoglobin 30.1 pg (27.0-31.2); Mean Corpuscular Volume 96.2 fl (81-99); Monocytes # 0.5 K/mm3 (0.1-1.0); Monocytes % 6.7 % (1.7-9.3); Neutrophils # 4.9 K/mm3 (1.8-7.8); Neutrophils % 63.2 % (37.0-80.0); Platelet Count 479 K/mm3 (142-424); Red Blood Count 3.89 M/mm3 (4.20-5.40); Red Cell Distribution Width 14.3 % (11.5-17.5); White Blood Count 7.8 K/mm3 (4.8-10.8)
[2022-07-10 18:21] LABS: Anion Gap 12.2 mEq/L (5-15); Calcium 9.3 mg/dl (8.4-10.2); Carbon Dioxide 30 mmol/L (22.0-30.0); Glucose 117 mg/dl (74-100)
[2022-07-10 18:25] LABS: Blood Urea Nitrogen 16 mg/dl (7-17)
[2022-07-10 18:33] LABS: Troponin I < 0.01 ng/ml (0.00-0.034)
[2022-07-10 18:40] LABS: Creatinine Clearance Estimated 82 mL/min (50-200); Estimated Glomerular Filt Rate 64 ml/min (>60); GFR (African American) 77 ML/MIN (>60)
--- NOTE | 2022-07-10 20:43 | HMH.EDCP ---
Discharge Plan Disposition Patient Disposition: Admitted as Observation Chief Complaint: Chest Pain Prescriptions Prescriptions: No Action omeprazole 40 mg capsule,delayed release(DR/EC) 40 mg PO DAILY Label Comments: TAKE 1 CAPSULE BY MOUTH ONCE DAILY ergocalciferol (vitamin D2) 1,250 mcg (50,000 unit) capsule 50,000 unit PO WEEKLY Label Comments: TAKE 1 CAPSULE BY MOUTH ONCE A WEEK levothyroxine [Euthyrox] 112 mcg tablet 112 mcg PO DAILY Label Comments: TAKE 1 TABLET BY MOUTH ONCE DAILY losartan 50 mg tablet 50 mg PO DAILY atenolol 50 mg tablet 25 mg PO DAILY Rx Instructions: 1/2 tablet daily magnesium oxide 400 mg magnesium capsule 400 mg PO DAILY mecobalamin (vitamin B12) 1,000 mcg tablet,chewable 1,000 mcg PO DAILY Nurtec ODT 75 mg tablet,disintegrating 75 mg PO .qod PRN (Reason: Migraine with aura) 30 Days Qty: 16 11RF folic acid 1 mg tablet See Rx Instructions .ROUTE .COMPLEX Qty: 90 3RF Dose Instruction: Take 3 tablets by mouth once daily Rx Instructions: Take 3 tablets by mouth once daily spironolactone 25 mg tablet 25 mg PO DAILY Qty: 30 4RF hydrochlorothiazide 25 MG tablet 25 mg PO DAILY ropinirole 0.25 MG tablet 0.25 mg PO HS atorvastatin 40 MG tablet 40 mg PO HS aspirin 81 MG tablet,delayed release (DR/EC) 81 mg PO DAILY Referrals Referrals: Provider,Referral, MD [Primary Care Provider] - Enter time for follow up Clinical Impressions Clinical Impression: Chest pain, Coronary artery disease Discharge ED Provider: Vernon Rhodes Chest Pain HPI General Chief Complaint: Chest Pain Stated Complaint: chest pain Time Seen by Provider: 07/10/22 20:49 Mode of Arrival: Ambulatory Source of Information: Patient, Spouse and Medical Record Limitations: No Limitations Description of Symptoms (Recalled from ER Triage Doc. by RN): pt to ed c/o mid chest pain that started last night. pt states she had some nausea and jaw numbness associated with the pain. pt reports a hx of 8 cardiac stents. pt states she takes 81mg of aspirin daily. pt states the pain comes and goes and is sharp in nature. History of Present Illness HPI narrative: pt with known cad with stents with chest pain lat pm and during the day with assoc sob MD complaint: chest pain indicative of cardiac Onset (ago): hour(s) Duration: now resolved Activity at onset: during rest Pain location: substernal Severity: similar to previous episodes Quality: sharp Pain radiation: jaw/teeth Associated symptoms: nausea Risk Factors for CAD: Hypertension, Hypercholesterolemia and Family Hx of CAD Treatments prior to or on arrival for Cardiac Chest Pain: aspirin RANDA Score for Non-Stemi Age of Patient: 60-69 years old Heart Rate: 50-69 bpm Systolic Blood Pressure: 160-199 mmHg Serum Creatinine: 0.80-1.19 mg/dl CHF [place] Class: I-No CHF Other Risk Factors: None Non-Stemi Risk Score: 78 Related Data Prior Cardiac Testing/Procedures: Stenting On Oral Contraceptives: No Home Medications Medication Instructions Recorded Confirmed ropinirole 0.25 mg tablet 0.25 mg PO HS Restless 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 05/15/21 05/28/22 release magnesium oxide 400 mg PO DAILY . 06/05/21 05/28/22 mecobalamin (vitamin B12) 1,000 1,000 mcg PO DAILY . 06/05/21 05/28/22 mcg chewable tablet ergocalciferol (vitamin D2) 1,250 50,000 unit PO WEEKLY . 02/19/22 05/28/22 mcg (50,000 unit) capsule levothyroxine 112 mcg tablet 112 mcg PO DAILY 05/28/22 05/28/22 (Euthyrox) losartan 50 mg
--- NOTE | 2022-07-10 21:14 | PC.NURSE ---
notified kelli supervisor coffee of need for bed assignment
[2022-07-10 21:21] VITALS: BMI 36.1
[2022-07-10 21:30] LABS: Coronavirus 19, PCR Not Detected (NotDetected); Influenza A, PCR Not Detected (NotDetected); Influenza B, PCR Not Detected (NotDetected)
[2022-07-10 21:54] VITALS: BP 146/78; PULSE 68; RESP 18; TEMP 36.5; O2SAT 97
[2022-07-10 21:56] LABS: Troponin I < 0.01 ng/ml (0.00-0.034)
--- NOTE | 2022-07-10 22:28 | PC.NURSE ---
PT ARRIVED TO FLOOR VIA W/C FROM ED W/STAFF @ 1074
[2022-07-10 22:40] VITALS: PULSE 60
[2022-07-11] VITALS (25 sets, daily range): BP systolic 110–151; BP diastolic 48–77; PULSE 50–71; RESP 12–20; TEMP 36.5–36.9; O2SAT 92–100; BMI 36.1
--- NOTE | 2022-07-11 | IR_ITS ---
APPROVED REPORT Patient Location: Inpatient PROCEDURES Left heart catheterization Left ventriculogram Selective coronary angiogram INDICATION Coronary artery disease, Recurrent angina pectoris Informed consent was obtained prior to the procedure. COMPLICATIONS NONE Estimated Blood Loss: LESS THAN 10 ML TECHNIQUE One percent lidocaine was used to anesthetize the right groin. The right femoral artery was accessed via the Seldinger technique. A 4-Pashto sheath was placed in the right femoral artery. The JL-4 and JR-4 catheter was also used to perform left heart catheterization left ventriculogram and selective coronary angiogram. At the end of the procedure the patient was transferred to the post-op holding area in stable condition for arterial sheath removal. ANGIOGRAPHIC RESULTS The left main artery Has a stent in the proximal segment extends into the LAD and circumflex artery. The stent is widely patent within the left main artery. The left anterior descending artery Has a stent which originates off the left main artery. The stent is widely patent and the LAD system. A high ramus intermedius has a proximal 40 to 50% stenosis The circumflex artery Is a nondominant vessel and has a stent of the left main artery which has a proximal eccentric and partially 60 to 70% stenosis The right coronary artery Is a dominant vessel and has a mid vessel 20 to 30% stenosis The PINTO ventriculogram reveals Normal 65% The left ventricular end-diastolic pressure 10 mmHg IMPRESSION Coronary disease as described above Normal ejection fraction Normal left ventricular end-diastolic pressure PLAN 1. Continue medical management. Patient does not qualify for bypass surgery with single-vessel disease. The LAD system is widely patent. Should patient develop LAD disease or dominant right coronary disease in the case, he may to proceed with bypass surgery. Otherwise maximize antianginal medications with patient understanding that stable angina is best treated medically 2. Aggressive risk factor modification Electronically signed by : Jl Goode MD 07/11/2022 14:13:20
[2022-07-11 00:55] LABS: Troponin I < 0.01 ng/ml (0.00-0.034)
--- NOTE | 2022-07-11 05:01 | PC.NURSE ---
pt has rested well this shift, has remained on room air, HR 62-68, SBP 134-146, did complain of headache and was treated per MAR, no complaints of chest pain or SOA
[2022-07-11 06:00] LABS: Basophils # 0.1 K/mm3 (0-0.2); Basophils % 1.1 % (0.1-2.0); Eosinophils # 0.4 K/mm3 (0.0-0.4); Eosinophils % 5.2 % (0.1-12.0); Hematocrit 35.4 % (37.0-47.0); Lymphocytes # 1.9 K/mm3 (0.7-4.5); Mean Corpuscular HGB Conc 31.2 g/dL (31.8-35.4); Mean Corpuscular Hemoglobin 29.7 pg (27.0-31.2); Mean Corpuscular Volume 95.1 fl (81-99); Mean Platelet Volume 8.6 fl (7.4-10.4); Monocytes # 0.5 K/mm3 (0.1-1.0); Monocytes % 6.6 % (1.7-9.3); Neutrophils # 5.1 K/mm3 (1.8-7.8); Platelet Count 388 K/mm3 (142-424); Red Blood Count 3.72 M/mm3 (4.20-5.40); Red Cell Distribution Width 14.5 % (11.5-17.5)
[2022-07-11 06:38] LABS: Chloride 107 mmol/L (98-107); Sodium 138 mmol/L (136-145)
[2022-07-11 06:39] LABS: Potassium 4.5 mmoL/L (3.5-5.1)
[2022-07-11 06:42] LABS: Anion Gap 16.5 mEq/L (5-15); Carbon Dioxide 19 mmol/L (22.0-30.0)
[2022-07-11 06:48] LABS: Glucose 131 mg/dl (74-100)
--- NOTE | 2022-07-11 08:27 | P.CONPHA_ITS ---
[facility] Pharmacy VTE Monitoring Patient Demographics Patient Allergies dexamethasone [DEXAMETHASONE] Allergy (Unknown, Verified 07/10/22 22:38) triamcinolone [From KENALOG] Allergy (Unknown, Verified 07/10/22 22:38) isosorbide Adverse Reaction (Intermediate, Verified 07/10/22 22:38) headache Height: 1.57 m Weight: 88.904 kg Current Active Problems (Updated 07/10/22 @ 22:55 by Lizzy Irene RN) Chest pain (Acute) CAD (coronary artery disease) (Chronic) VTE Risk Labs: VTE Related Lab Results Hgb 11.0 g/dL (12.2-16.2) L 07/11/22 05:51 Hct 35.4 % (37.0-47.0) L 07/11/22 05:51 Plt Count 388 K/mm3 (142-424) 07/11/22 05:51 BUN 16 mg/dl (7-17) 07/10/22 17:55 Creatinine 0.90 mg/dl (0.52-1.04) 07/10/22 17:55 Estimated Creat Clear 82 mL/min (50-200) 07/10/22 17:55 VTE Score: 6 VTE Risk Level: Moderate Risk Clinical Trial Participant: No Prophylaxis VTE Prophylaxis Ordered?: Yes Types of VTE Prophylaxis: TEDS Knee High
[2022-07-11 08:37] LABS: Blood Urea Nitrogen 14 mg/dl (7-17); Creatinine Clearance Estimated 83 mL/min (50-200); Estimated Glomerular Filt Rate 73 ml/min (>60); GFR (African American) 88 ML/MIN (>60)
[2022-07-11 08:46] LABS: Calcium 9.6 mg/dl (8.4-10.2)
[2022-07-11 09:25] LABS: Alanine Aminotransferase 22 U/L (12-78); Aspartate Amino Transferase 38 U/L (14-36)
[2022-07-11 09:26] LABS: Albumin Level 3.9 g/dl (3.5-5.0); Alkaline Phosphatase 135 U/L (38-126); Chol/HDL Ratio 2.3 (1-3.5); Cholesterol 119 mg/dl (140-200); HDL Cholesterol 51 mg/dl (40-60); Total Protein,Serum 6.8 g/dl (6.3-8.2); Triglycerides 55 mg/dl (30-150); VLDL Cholesterol 11 mg/dL (0-40)
[2022-07-11 09:30] LABS: Bilirubin,Total < 0.1 mg/dl (0.2-1.3)
[2022-07-11 09:56] LABS: Bilirubin,Indirect 0.1 mg/dL (0.0-0.9)
--- NOTE | 2022-07-11 10:20 | PC.NURSE ---
Rounded on pt, cleaned and straightened room. Pt is npo for possible procedure. No needs voiced at this time.
--- NOTE | 2022-07-11 10:32 | EXP.CARD.CON ---
History of Present Illness History of Present Illness Consult date: 07/11/22 Requesting physician: Jamie Chahal Consult reason: chest pain Chief complaint: chest pain History of present illness: This is a 62-year-old white female who presented to the hospital with complaints of chest pain. The patient states that the night before admission she woke up in the middle the night with face and jaw numbness and a sharp pain in the central aspect of her chest that lasted for approximately 5 minutes. The patient states that she had to sit up in bed before the chest pain resolved after that 5 minutes. The following day she was significantly fatigued, had an aching in her legs, she was short of breath and still having intermittent episodes of the sharp chest pain. She typically wears her CPAP at night but yesterday during the day she had to wear her CPAP as well because she felt like she could not catch her breath. The patient's symptoms persisted throughout the entire day. Her came home from work and ultimately brought her to the emergency department due to her symptoms. The patient states that she was treated with a nitro patch last night and her chest pain subsided. This morning she is chest pain-free. She denies any fever, chills, nausea, vomiting, diarrhea, PND or orthopnea. Review of Systems Review of Systems Review of systems:: pertinent systems reviewed and negative unless documented below Constitutional Constitutional: Reports system reviewed and no additional complaints, except as documented, Reports body ache(s), Reports fatigue and Reports lethargy Eyes Eyes: Reports system reviewed and no additional complaints, except as documented ENT Ears, Nose, Mouth, and Throat: Reports system reviewed and no additional complaints, except as documented *Cardiovascular Cardiovascular: Reports chest pain, Reports chest pain at rest, Reports chest pain with activity, Reports dyspnea, Reports dyspnea on exertion and Reports radiating jaw, neck or arm pain *Respiratory Respiratory: Reports system reviewed and no additional complaints, except as documented, Reports dyspnea and Reports dyspnea on exertion *Gastrointestinal Gastrointestinal: Reports system reviewed and no additional complaints, except as documented *Musculoskeletal Musculoskeletal: Reports system reviewed and no additional complaints, except as documented Integumentary/Breasts Skin/Breast: Reports system reviewed and no additional complaints, except as documented *Neurologic Neurologic: Reports system reviewed and no additional complaints, except as documented Psychiatric Psychiatric: Reports system reviewed and no additional complaints, except as documented Endocrine Endocrine: Reports system reviewed and no additional complaints, except as documented and Reports fatigue Hematologic/Lymphatic Hematologic/Lymphatic: Reports system reviewed and no additional complaints, except as documented Allergic/Immunologic Allergic/Immunologic: Reports system reviewed and no additional complaints, except as documented Exam Data for Last 24 hours Vital signs and Labs for Last 24 Hours: Temp Pulse Resp BP Pulse Ox 97.8 F 63 17 146/63 H 98 07/11/22 08:00 07/11/22 08:00 07/11/22 08:00 07/11/22 08:00 07/11/22 08:00 Laboratory Results - last 24 hr 07/10/22 17:55: WBC 7.8, RBC 3.89 L, Hgb 11.7 L, Hct 37.4, MCV 96.2, MCH 30.1, MCHC 31.3 L, RDW 14.3, Plt Count 479 H, MPV 8.0, Neut % (Auto) 63.2, Lymph % (Auto) 23.5, Izard % (Auto) 6.7, Eos % (Auto) 4.3, Baso % (Auto) 2.3 H, Neut # (Auto) 4.9, Lymph # (Auto) 1.8, Izard # (Auto) 0.5, Eos # (Auto) 0.3, Baso # (Auto) 0.2 07/10/22 17:55: Sodium 139, Potassium 4.2, Chloride 101, Carbon Dioxide 30, Anion Gap 12.2, BUN 16, Creatinine 0.90, Estimated Creat Clear 82, Estimated GFR 64, Est GFR ( Amer) 77, Glucose 117 H, Calcium 9.3, Troponin I < 0.01 07/10/22 21:15: Troponin I < 0.01 07/10/22 21:15: SARS-CoV-2 (PCR) Not detected, Influenza A Untype (PC
--- NOTE | 2022-07-11 10:41 | EXP.HP ---
History of Present Illness *Admission Date: 07/10/22 *Reason for consult:: chest pain *History of present illness: This is a 62-year-old white female who presented to the hospital with complaints of chest pain.? The patient states that the night before admission she woke up in the middle the night with face and jaw numbness and a sharp pain in the central aspect of her chest that lasted for approximately 5 minutes.? The patient states that she had to sit up in bed before the chest pain resolved after that 5 minutes.? The following day she was significantly fatigued, had an aching in her legs, she was short of breath and still having intermittent episodes of the sharp chest pain.? She typically wears her CPAP at night but yesterday during the day she had to wear her CPAP as well because she felt like she could not catch her breath.? The patient's symptoms persisted throughout the entire day.? Her came home from work and ultimately brought her to the emergency department due to her symptoms.? The patient states that she was treated with a nitro patch last night and her chest pain subsided.? This morning she is chest pain-free.? She denies any fever, chills, nausea, vomiting, diarrhea, PND or orthopnea. (above as per cardiology) [facility] Medical History (Updated 07/11/22 @ 11:41 by LYNN Villegas) Allergies Chest discomfort Coronary artery disease GERD (gastroesophageal reflux disease) History of chest pain History of left heart catheterization History of syncope HLD (hyperlipidemia) Hypertension Hypothyroidism Migraine POTS (postural orthostatic tachycardia syndrome) Restless leg syndrome Sinus bradycardia Unstable angina Surgical History (Updated 07/11/22 @ 11:41 by LYNN Villegas) H/O colonoscopy H/O: hysterectomy History of section History of coronary artery stent placement Family History (Updated 07/11/22 @ 11:42 by LYNN Villegas) Family history of cancer Coronary artery disease Family history of hypertension Family history of diabetes mellitus type II Social History Smoking Status: Never smoker second hand exposure: No alcohol intake: never substance use type: denies use current occupational status: unemployed Travel in the last 8 weeks: None household members: spouse housing: house 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 current occupational exposures/hazards: No caffeine: Yes Review of Systems Constitutional Constitutional: Reports fatigue, Denies fever(s), Reports headache(s), Reports malaise and Reports weakness Eyes Eyes: Denies blurry vision and Denies diplopia ENT Ears, Nose, Mouth, and Throat: Reports headache(s), Denies nasal congestion, Denies sore throat and Denies vertigo *Cardiovascular Cardiovascular: Reports chest pain, Reports dyspnea, Denies leg edema and Reports radiating jaw, neck or arm pain *Respiratory Respiratory: Denies cough and Reports dyspnea *Gastrointestinal Gastrointestinal: Denies diarrhea, Reports nausea and Denies vomiting *Genitourinary Genitourinary: Denies difficulty voiding and Denies dysuria *Musculoskeletal Musculoskeletal: Denies arthralgias, Reports muscle weakness and Reports myalgias *Neurologic Neurologic: Reports headache(s), Denies vertigo and Reports weakness Endocrine Endocrine: Reports fatigue Meds Home Medications and Allergies Home Medications Medication Instructions Recorded Confirmed Type ropinirole 0.25 mg tablet 0.25 mg PO HS Restless legs 01/08/18 07/10/22 History syndrome hydrochlorothiazide 25 mg tablet 25 mg PO DAILY Hypertension 01/20/20 07/10/22 History aspirin 81 mg tablet,delayed 81 mg PO DAILY Heart health 06/23/20 07/10/22 History release atorvastatin 40 mg tablet 40 mg PO HS Cholesterol 06/23/20 07/10/22 History atenolol 50 mg tablet 25 mg PO DAILY Hypertension 07/04/20 07/10/22 History omeprazole 40 mg capsule,delayed 40 mg PO DAILY . 04/18
--- NOTE | 2022-07-11 15:11 | PC.NURSE ---
Patient resting in bed in supine position, patient returned from laboratory associate in stable condition, right groin site cdi, no bleeding or hematoma noted, vss, patient very drowsy, HR reg, NSR per telemetry, on RA, denies any cp or soa at this time, peripheral pulses intact, no edema noted, bed in lowest position with call light in reach.
--- NOTE | 2022-07-11 16:01 | PC.NURSE ---
Spoke with A Mario CRISTINA regarding isosorbide and ranexa. Patient has isosorbide listed as allergy- (reaction is headache) and patient had previously taken ranexa which caused her soa. States it is ok to give patient both medications, they would like for her to try them for one week and if she is unable to tolerate them they will address it in the office as an outpatient.
[2022-07-12] VITALS: PULSE 67
[2022-07-12 04:00] VITALS: BP 144/57; PULSE 67; PULSE 68; RESP 16; TEMP 36.6; O2SAT 99
[2022-07-12 04:48] VITALS: BMI 35.5
--- NOTE | 2022-07-12 05:29 | PC.NURSE ---
Patient a&ox4. Right groin cath site CDI no bleeding nor hematoma noted. VSS. Patient NSR on tele throughout night. Patient tolerates RA sats above 90%. No chest pain noted.
--- NOTE | 2022-07-12 07:51 | EXP.ACUTE.PN ---
Subjective *Date: 07/12/22 *Time: 08:06 Interval history: Patient with no n ew complaints today, anxious to go home. Heart cath note reviewed, medical management recommended. Medical Exam Vital signs and Labs for Last 24 Hours: Temp Pulse Resp BP Pulse Ox 97.9 F 68 16 144/57 H 99 07/12/22 04:00 07/12/22 04:00 07/12/22 04:00 07/12/22 04:00 07/12/22 04:00 Laboratory Results - last 24 hr 07/11/22 05:51: Total Bilirubin < 0.1 L, Direct Bilirubin 0.0, Conjugated Bilirubin 0.0, Indirect Bilirubin 0.1, Unconjugated Bilirubin 0.0, AST 38 H, ALT 22, Alkaline Phosphatase 135 H, Total Protein 6.8, Albumin 3.9, Triglycerides 55, Cholesterol 119 L, VLDL Cholesterol 11, HDL Cholesterol 51, Cholesterol/HDL Ratio 2.3 07/11/22 07:54: Sodium 138, Potassium 4.5, Chloride 107, Carbon Dioxide 19 L, Anion Gap 16.5 H, BUN 14, Creatinine 0.80, Estimated Creat Clear 83, Estimated GFR 73, Est GFR ( Amer) 88, Glucose 131 H, Calcium 9.6 I & O for Labs for Last 24 Hours: Intake & Output 07/09/22 07/10/22 07/11/22 07/12/22 23:59 23:59 23:59 23:59 Intake Total 646 / 646 Output Total 2750 / 2750 Balance -2104 / -2104 Weight 196 lb 196 lb 193 lb 3.727 oz Constitutional: no acute distress Respiratory: CTA bilaterally Cardiac: Reg Rate and Rhythm Assessment and Plan *Assessment and plan (1) Unstable angina: Status: Acute Category: Medical Code(s): I20.0 - Unstable angina (2) Fatigue: Status: Chronic Qualifiers: Fatigue type: unspecified Qualified Code(s): R53.83 - Other fatigue Category: Medical Code(s): R53.83 - Other fatigue (3) Dyspnea: Status: Chronic Qualifiers: Dyspnea type: shortness of breath Qualified Code(s): R06.02 - Shortness of breath Category: Medical Code(s): R06.00 - Dyspnea, unspecified (4) Carotid artery stenosis: Status: Chronic Qualifiers: Laterality: unspecified laterality Qualified Code(s): I65.29 - Occlusion and stenosis of unspecified carotid artery Category: Medical Code(s): I65.29 - Occlusion and stenosis of unspecified carotid artery (5) HLD (hyperlipidemia): Status: Chronic Qualifiers: Hyperlipidemia type: mixed hyperlipidemia Qualified Code(s): E78.2 - Mixed hyperlipidemia Category: Medical Code(s): E78.5 - Hyperlipidemia, unspecified (6) Hypertension: Status: Chronic Qualifiers: Hypertension type: essential hypertension Qualified Code(s): I10 - Essential (primary) hypertension Category: Medical Code(s): I10 - Essential (primary) hypertension (7) Coronary artery disease: Status: Chronic Qualifiers: Associated angina: without angina Coronary Disease-Associated Artery/Lesion type: [place] artery [place] vs. transplanted heart: [place] heart Qualified Code(s): I25.10 - Atherosclerotic heart disease of [place] coronary artery without angina pectoris Category: Medical Code(s): I25.10 - Atherosclerotic heart disease of [place] coronary artery without angina pectoris (8) Hypothyroidism: Status: Chronic Qualifiers: Hypothyroidism type: unspecified Qualified Code(s): E03.9 - Hypothyroidism, unspecified Category: Medical Code(s): E03.9 - Hypothyroidism, unspecified (9) POTS (postural orthostatic tachycardia syndrome): Status: Chronic Category: Medical Code(s): I49.8 - Other specified cardiac arrhythmias (10) History of coronary artery stent placement: Status: Acute Category: Surgical Code(s): Z95.5 - Presence of coronary angioplasty implant and graft Plan Plan discharge home today with antianginal treatment. F/U with cardiology next week. Assessment and plan all Dx Plan of Treatment: Cardiology has seen the patient and feels she has symptoms consistent with unstable angina. They will proceed with
[2022-07-12 08:00] VITALS: BP 122/67; PULSE 66; PULSE 70; RESP 16; TEMP 36.4; O2SAT 100
[2022-07-12 08:34] LABS: Direct LDL Cholesterol 50 mg/dL (100-129)
--- NOTE | 2022-07-12 10:03 | EXP.CARD.PN ---
Subjective Subjective Date: 07/12/22 Time: 09:00 Principal diagnosis: Angina, CAD Interval history: This is a 62-year-old white female who presented to the emergency department with complaints of chest pain. The patient had woke up in the middle night with face and jaw numbness as well as chest pain. She was having symptoms consistent with unstable angina and underwent left cardiac catheterization yesterday. The patient was found to have patent coronary artery disease but did have a 60 to 70% lesion to her circumflex artery which was best felt to be medically clean managed at this time. She is not a candidate for bypass surgery due to the single-vessel disease. If she were to develop LAD disease or dominant right coronary artery disease the patient could be considered for coronary artery bypass grafting at that time. She has been started on isosorbide and Ranexa. She is tolerating these medications well. This morning she denies any chest pain or pressure. No shortness of breath or edema. No fever, chills, nausea, vomiting, diarrhea, PND or orthopnea. Exam Data for Last 24 hours Vital signs and Labs for Last 24 Hours: Temp Pulse Resp BP Pulse Ox 97.6 F 66 16 122/67 100 07/12/22 08:00 07/12/22 08:00 07/12/22 08:00 07/12/22 08:00 07/12/22 08:00 Laboratory Results - last 24 hr 07/11/22 05:51: LDL Cholesterol Direct 50 L I & O for Last 24 hours: Intake & Output 07/09/22 07/10/22 07/11/22 07/12/22 23:59 23:59 23:59 23:59 Intake Total 646 / 646 720 / 720 Output Total 2750 / 2750 600 / 600 Balance -2104 / -2104 120 / 120 Weight 196 lb 196 lb 193 lb 3.727 oz Constitutional Constitutional: no acute distress and obese *Routine HEENT Exam Head: Present normocephalic and atraumatic ENT: Present mucous membranes moist *Routine Neck Exam Neck: Present supple, full ROM and normal carotid upstroke; Absent JVD, carotid bruit or lymphadenopathy *Routine Respiratory Exam Respiratory: Present CTA bilaterally, normal respiratory effort, able to speak in complete sentences and symmetric chest movement *Routine Cardiovascular Exam Cardiovascular: Present RRR, Normal S1 and Normal S2; Absent murmur or gallop *Routine Abdominal Exam Abdominal: Present soft and normoactive bowel sounds; Absent tenderness or distended *Routine Extremities Exam Extremities: Present full ROM, pulses intact and normal capillary refill; Absent cyanosis, clubbing or edema *Routine Skin Exam Skin: Present intact and warm; Absent erythema *Routine Neurological Exam Neurological: Present alert, oriented X3 and CN II-XII intact; Absent sensory deficit or motor deficit Routine Psychiatric Exam Psychiatric: Present normal affect Progress Note: A&P Assessment and plan (1) Unstable angina: Status: Acute (2) Fatigue: Status: Chronic (3) Dyspnea: Status: Chronic (4) Carotid artery stenosis: Status: Chronic (5) HLD (hyperlipidemia): Status: Chronic (6) Hypertension: Status: Chronic (7) Coronary artery disease: Status: Chronic (8) Hypothyroidism: Status: Chronic (9) History of coronary artery stent placement: Status: Acute Assessment and Plan Assessment and Plan for All Diagnoses:: Plan: 1. The patient was admitted to the hospital with symptoms consistent with unstable angina. She underwent left cardiac catheterization and required no percutaneous intervention. The patient is not a candidate for bypass surgery despite having the 60 to 70% in-stent restenosis in her circumflex. She only has single-vessel disease. If she were to ever develop dominant right coronary artery disease or LAD disease she could be considered for bypass surgery at that time. Medical management is preferred for her circumflex artery disease. Dr. Goode wants to maximize antianginals. She has been started on Ranexa and isosorbide. She is tolerating these well. 2. Her coronary artery disease is likely stabl
--- NOTE | 2022-07-12 10:19 | PC.NURSE ---
Pt discharged at this time, she is alert, oriented x 4. Discharge instructions discussed with pt and , verbalized understanding. Left floor via W/C accompanied by tech.
--- NOTE | 2022-07-12 10:30 | HMH.PHAINT1 ---
Pharmacy Intervention Comments: DISCHARGE MEDICATION COUNSELING PROVIDED. DISCUSSED THE TWO NEW PRESCRIPTIONS, RANEXA (FOR CHEST PAIN, TAKE TWICE DAILY, DO NOT CUT/CRUSH TABS, TAKE WITH OR WITHOUT FOOD, WATCH FOR HEADACHE/DIZZINESS/LIGHTHEADEDNESS/SLOWED HR/CONSTIPATION) AND ISOSORBIDE (FOR CHEST PAIN, TAKE DAILY, DIZZINESS/LIGHTHEADEDNESS/HEADACHE POSSIBLE) PATIENT VERBALIZED NO QUESTIONS AT THIS TIME.
[2022-07-12 11:15] LABS: Anion Gap 16.1 mEq/L (5-15); Blood Urea Nitrogen 14 mg/dl (7-17); Calcium 8.9 mg/dl (8.4-10.2); Carbon Dioxide 21 mmol/L (22.0-30.0); Chloride 104 mmol/L (98-107); Creatinine Clearance Estimated 82 mL/min (50-200); Estimated Glomerular Filt Rate 73 ml/min (>60); GFR (African American) 88 ML/MIN (>60); Glucose 206 mg/dl (74-100); Potassium 4.1 mmoL/L (3.5-5.1); Sodium 137 mmol/L (136-145)
--- NOTE | 2022-07-12 12:43 | EXP.DC.SUM ---
General Admission date:: 07/10/22 Discharge date: 07/12/22 HPI HPI HPI: This is a 62-year-old white female who presented to the hospital with complaints of chest pain.? The patient states that the night before admission she woke up in the middle the night with face and jaw numbness and a sharp pain in the central aspect of her chest that lasted for approximately 5 minutes.? The patient states that she had to sit up in bed before the chest pain resolved after that 5 minutes.? The following day she was significantly fatigued, had an aching in her legs, she was short of breath and still having intermittent episodes of the sharp chest pain.? She typically wears her CPAP at night but yesterday during the day she had to wear her CPAP as well because she felt like she could not catch her breath.? The patient's symptoms persisted throughout the entire day.? Her came home from work and ultimately brought her to the emergency department due to her symptoms.? The patient states that she was treated with a nitro patch last night and her chest pain subsided.? This morning she is chest pain-free.? She denies any fever, chills, nausea, vomiting, diarrhea, PND or orthopnea. (above as per cardiology) Hospital Course Hospital Course Hospital Course: The patient was admitted and cardiology was consulted. They felt her symptoms were consistent with unstable angina and wanted to proceed with a left heart cath. The patient did have coronary disease on the heart cath with a normal ejection fraction and normal left ventricular end-diastolic pressure. Cardiology recommended medical management and did not feel she qualified for bypass surgery with single-vessel disease. They recommended starting on isosorbide mononitrate 30 mg daily. She apparently had a previous allergy to isosorbide, but she wore Nitropaste without having a headache or any side effects, so they wanted to try isosorbide again to see if she can tolerate this medication. They also wanted her started on Ranexa 500 mg twice daily for angina. By 07/12/2022 she was feeling well with no new complaints. She was stable to be discharged home with antianginal treatment and will follow up with cardiology. Exam Data for Last 24 hours Vital signs and Labs for Last 24 Hours: Temp Pulse Resp BP Pulse Ox 97.6 F 66 16 122/67 100 07/12/22 08:00 07/12/22 08:00 07/12/22 08:00 07/12/22 08:00 07/12/22 08:00 Laboratory Results - last 24 hr 07/11/22 05:51: LDL Cholesterol Direct 50 L 07/12/22 09:30: Sodium 137, Potassium 4.1, Chloride 104, Carbon Dioxide 21 L, Anion Gap 16.1 H, BUN 14, Creatinine 0.80, Estimated Creat Clear 82, Estimated GFR 73, Est GFR ( Amer) 88, Glucose 206 H, Calcium 8.9 I & O for Last 24 hours: Intake & Output 07/10/22 07/11/22 07/12/22 07/13/22 11:59 11:59 11:59 11:59 Intake Total 406 / 406 960 / 960 Output Total 750 / 750 2600 / 2600 Balance -344 / -344 -1640 / -1640 Weight 196 lb 193 lb 3.727 oz Narrative: Constitutional Constitutional: no acute distress *Routine HEENT Exam Head: Present normocephalic and atraumatic Eye: Present EOMI and PERRL ENT: Present mucous membranes moist *Routine Neck Exam Neck: Present supple and full ROM *Routine Respiratory Exam Respiratory: Present CTA bilaterally *Routine Cardiovascular Exam Cardiovascular: Present RRR *Routine Abdominal Exam Abdominal: Present soft and normoactive bowel sounds; Absent tenderness *Routine Rectal Exam Rectal:: deferred *Routine Genitalia Exam Genitalia:: deferred *Routine Extremities Exam Extremities: Absent cyanosis, clubbing or edema *Routine Skin Exam Skin: Present intact; Absent erythema *Routine Neurological Exam Neurological: Present alert and oriented X3 Results Data Completed and Pending Labs on day of discharge: Labs from last 24 hours 07/12/22 07/11/22 09:30 05:51 Sodium 137 Potassium 4.1 Chloride 104 Carbon Dioxide 21 L Anion Gap 16.1 H
--- NOTE | 2022-07-16 14:06 | CARE MANAGER ---
Attempted post discharge follow-up call and left a message.
== END 2022-07-12 10:18 | disposition home or self-care (01) ==
LOC: ER 21:14 → 2ND 22:00
PROVIDERS: Emergency Medicine; Internal Medicine; Nurse Practitioner Family; Admitting Provider Family Medicine; Emergency Provider Emergency Medicine; Visit Provider Family Medicine
DX: R07.9 Chest pain, unspecified (principal); Z79.899 Other long term (current) drug therapy; Z95.5 Presence of coronary angioplasty implant and graft; I25.110 Atherosclerotic heart disease of native coronary artery with unstable angina pectoris; I65.23 Occlusion and stenosis of bilateral carotid arteries; E03.9 Hypothyroidism, unspecified; I10 Essential (primary) hypertension; E78.5 Hyperlipidemia, unspecified; Z20.822 Contact with and (suspected) exposure to COVID-19
CPT/HCPCS: 36415; 71046; 80048; 80061; 80076; 84484; 85025; 93005; 93306; 93458; 99152; 99285; C1725; C1769; C9803; G0378; Q9967; U0003; U0005

== ENCOUNTER → 2022-09-11 13:49 | Outpatient (CLI) | payer BC, SELFPAY ==
[2022-09-11 14:47] VITALS: BMI 36.9
== END ==
PROVIDERS: PCP Family Medicine; Visit Provider Family Medicine
DX: Z71.3 Dietary counseling and surveillance (principal); E11.9 Type 2 diabetes mellitus without complications
CPT/HCPCS: 97802

== ENCOUNTER 2022-09-27 11:37 | Emergency (ER) | payer BC, SELFPAY ==
[2022-09-27 11:39] VITALS: BP 128/54; PULSE 67; RESP 16; TEMP 36.6; O2SAT 98; BMI 35.6
--- NOTE | 2022-09-27 11:43 | ECG_ITS ---
APPROVED REPORT Exam: Resting ECG HR:67 bpm ECG Measurements Heart Rate 67 AXES NV 163 P 6 QRSd 98 QRS -1 QT 388 T 21 QTc 404 Conclusion SINUS RHYTHM LOW QRS VOLTAGE IN PRECORDIAL LEADS [QRS DEFLECTION < 1.0 mV IN CHEST LEADS] BORDERLINE ECG UNCONFIRMED REPORT Electronically signed by : Harpreet Cole MD 09/27/2022 19:58:51
--- NOTE | 2022-09-27 11:50 | XR_ITS ---
FINAL REPORT CLINICAL HISTORY: chest pain COMPARISON: 07/10/2022 FINDINGS: TWO-VIEW CHEST The heart size is normal. The mediastinum is normal. The lungs are clear. There is no pneumothorax. IMPRESSION: No acute cardiopulmonary process. Reviewed, Interpreted and Dictated by Salinas Goodman MD Transcribed by Feli Lucio Authenticated and [facility]
--- NOTE | 2022-09-27 11:59 | PC.NURSE ---
pt to rad via wheelchair
[2022-09-27 12:01] LABS: Basophils # 0.1 K/mm3 (0-0.2); Basophils % 1.6 % (0.1-2.0); Eosinophils # 0.2 K/mm3 (0.0-0.4); Eosinophils % 2.9 % (0.1-12.0); Hematocrit 35.7 % (37.0-47.0); Hemoglobin 11.5 g/dL (12.2-16.2); Lymphocytes # 1.2 K/mm3 (0.7-4.5); Lymphocytes % 18.9 % (10-50); Mean Corpuscular HGB Conc 32.3 g/dL (31.8-35.4); Mean Corpuscular Hemoglobin 31.3 pg (27.0-31.2); Mean Corpuscular Volume 96.9 fl (81-99); Mean Platelet Volume 7.6 fl (7.4-10.4); Monocytes # 0.5 K/mm3 (0.1-1.0); Monocytes % 7.2 % (1.7-9.3); Neutrophils # 4.5 K/mm3 (1.8-7.8); Neutrophils % 69.4 % (37.0-80.0); Platelet Count 458 K/mm3 (142-424); Red Blood Count 3.69 M/mm3 (4.20-5.40); Red Cell Distribution Width 15.1 % (11.5-17.5); White Blood Count 6.6 K/mm3 (4.8-10.8)
[2022-09-27 12:06] LABS: Chloride 97 mmol/L (98-107)
[2022-09-27 12:07] LABS: Potassium 4.1 mmoL/L (3.5-5.1); Sodium 137 mmol/L (136-145)
[2022-09-27 12:09] LABS: Alanine Aminotransferase 25 U/L (12-78); Aspartate Amino Transferase 30 U/L (14-36); Blood Urea Nitrogen 19 mg/dl (7-17); Creatinine Clearance Estimated 82 mL/min (50-200); Estimated Glomerular Filt Rate 64 ml/min (>60); GFR (African American) 77 ML/MIN (>60)
[2022-09-27 12:10] LABS: Albumin Level 4.4 g/dl (3.5-5.0); Albumin/Globulin Ratio 1.5 (1.1-1.8); Alkaline Phosphatase 89 U/L (38-126); Anion Gap 15.1 mEq/L (5-15); Bilirubin,Total 0.4 mg/dl (0.2-1.3); Calcium 9.6 mg/dl (8.4-10.2); Carbon Dioxide 29 mmol/L (22.0-30.0); Globulin 2.9 g/dL (1.3-3.2); Glucose 107 mg/dl (74-100); Total Protein,Serum 7.3 g/dl (6.3-8.2)
[2022-09-27 12:19] LABS: NT Pro Brain Natriuretic Pep. 74.3 pg/mL (0-125)
[2022-09-27 12:24] LABS: Troponin I < 0.01 ng/ml (0.00-0.034)
[2022-09-27 12:31] VITALS: BP 105/47; PULSE 65; O2SAT 100
[2022-09-27 13:00] VITALS: BP 109/54; PULSE 64; O2SAT 98
[2022-09-27 13:30] VITALS: BP 110/56; PULSE 63; O2SAT 97
--- NOTE | 2022-09-27 13:38 | HMH.EDGENADL ---
Discharge Plan Disposition Patient Disposition: Home, Self-Care Condition: Good Prescriptions Prescriptions: New gabapentin 100 mg capsule 100 mg PO DAILY Qty: 30 0RF No Action omeprazole 40 mg capsule,delayed release(DR/EC) 40 mg PO DAILY Label Comments: TAKE 1 CAPSULE BY MOUTH ONCE DAILY levothyroxine [Euthyrox] 112 mcg tablet 112 mcg PO DAILY Label Comments: TAKE 1 TABLET BY MOUTH ONCE DAILY losartan 50 mg tablet 50 mg PO DAILY atenolol 50 mg tablet 25 mg PO DAILY magnesium oxide 400 mg magnesium capsule 400 mg PO DAILY mecobalamin (vitamin B12) 1,000 mcg tablet,chewable 1,000 mcg PO DAILY Nurtec ODT 75 mg tablet,disintegrating 75 mg PO .qod PRN (Reason: Migraine with aura) 30 Days Qty: 16 11RF spironolactone 25 mg tablet 25 mg PO DAILY Qty: 30 4RF hydrochlorothiazide 25 MG tablet 25 mg PO DAILY folic acid 1 mg tablet 3 mg PO DAILY aspirin 81 mg Tablet,Chewable 81 mg PO DAILY isosorbide mononitrate 30 mg Tablet Extended Release 24 Hr 30 mg PO DAILY Qty: 30 0RF ranolazine 500 mg Tablet Extended Release 12 Hr 500 mg PO BID Qty: 60 0RF ropinirole 0.25 MG tablet 0.25 mg PO HS atorvastatin 40 MG tablet 40 mg PO HS Referrals Follow up/Referrals: Jamie Chahal MD [Primary Care Provider] - See instructions Clinical Impressions Clinical Impression: Trigeminal neuralgia Instructions Patient Instructions: DI for Trigeminal Neuralgia Discharge ED Provider: Gaurav [facility] HPI General Chief complaint: PAIN Stated complaint: Jaw pain (sent by [facility]) Time Seen by Provider: 09/27/22 11:45 Mode of Arrival: Ambulatory Source of Information: Patient Limitations: No Limitations Description of Symptoms (Recalled from ER Triage Doc. by RN): c/o left jaw pain for one week, states some chest pain 3 days ago but has resolved at this time. Feeling fatigue History of Present Illness HPI narrative: Patient is a 62-year-old female with a past medical history of multiple stents, hyperlipidemia, POTS, hypertension who presents with concern for jaw pain. She says that about 1 week ago she started to get some left-sided jaw pain. She locates it from the angle of her jaw down towards the center. It does not cross over to the right side. She says that she had some chest pain 3 days ago that self resolved but she was feeling more fatigued today and her symptoms were not improving. She thought that a tooth was the cause of her symptoms so she went to the dentist who ultimately sent her here with concern that it was from a cardiac source. She denies any shortness of breath. Pain does not radiate from the jaw. She describes it as a stabbing sensation. Denies any tooth pain. Denies any nausea or diaphoresis. Related Data Home Medications Medication Instructions Recorded Confirmed ropinirole 0.25 mg tablet 0.25 mg PO HS Restless legs 01/08/18 08/14/22 syndrome hydrochlorothiazide 25 mg tablet 25 mg PO DAILY Hypertension 01/20/20 08/14/22 atorvastatin 40 mg tablet 40 mg PO HS Cholesterol 06/23/20 08/14/22 atenolol 50 mg tablet 25 mg PO DAILY Hypertension 07/04/20 08/14/22 omeprazole 40 mg capsule,delayed 40 mg PO DAILY GERD 05/15/21 08/14/22 release magnesium oxide 400 mg PO DAILY Supplement 06/05/21 08/14/22 mecobalamin (vitamin B12) 1,000 1,000 mcg PO DAILY Supplement 06/05/21 08/14/22 mcg chewable tablet levothyroxine 112 mcg tablet 112 mcg PO DAILY THYROID 05/28/22 08/14/22 (Euthyrox) losartan 50 mg tablet 50 mg PO DAILY Hypertension 05/28/22 08/14/22 folic acid 1 mg tablet 3 mg PO DAILY Supplement 07/10/22 08/14/22 aspirin 81 mg chewable tablet 81 mg PO DAILY HEART HEALTH 07/11/22 08/14/22 Previous Rx's Medication Instructions Recorded Nurtec ODT 75 mg disintegrating 75 mg PO .qod PRN Migraine with 01/03/22 tablet (rimegepant) aura 30 days #16 tabs spironolactone 25 mg
[2022-09-27 14:00] VITALS: BP 108/52; PULSE 63; O2SAT 97
[2022-09-27 14:14] VITALS: BP 108/74; PULSE 60; RESP 20; TEMP 36.6; O2SAT 99
== END 2022-09-27 14:16 | disposition home or self-care (01) ==
PROVIDERS: Emergency Provider Student in an Organized Health Care Education/Training Program; PCP Family Medicine
DX: G50.0 Trigeminal neuralgia; R53.83 Other fatigue; Z79.82 Long term (current) use of aspirin; Z79.899 Other long term (current) drug therapy; Z88.8 Allergy status to other drugs, medicaments and biological substances; I10 Essential (primary) hypertension; E78.5 Hyperlipidemia, unspecified; I25.10 Atherosclerotic heart disease of native coronary artery without angina pectoris; K21.9 Gastro-esophageal reflux disease without esophagitis; E03.9 Hypothyroidism, unspecified; G43.909 Migraine, unspecified, not intractable, without status migrainosus; G90.A Postural orthostatic tachycardia syndrome [POTS]; G25.81 Restless legs syndrome
CPT/HCPCS: 71046; 80053; 83880; 84484; 85025; 93005; 99284

== ENCOUNTER → 2022-10-17 11:00 | Outpatient (CLI) | payer BC, SELFPAY ==
--- NOTE | 2022-10-17 11:04 | XR_ITS ---
FINAL REPORT CLINICAL HISTORY: LT LEG PAIN, left sciatica FINDINGS: Five views were obtained. There is no acute fracture. There is no malalignment. The disc spaces are maintained. There is minimal anterior osteophyte formation at L3-L4 and L4-L5. There is moderate facet sclerosis in the lower lumbar spine. IMPRESSION: Moderate facet sclerosis in the lower lumbar spine. Reviewed, Interpreted and Dictated by Salinas Goodman MD Transcribed by Rajiv Alex Authenticated and [facility]
--- NOTE | 2022-10-17 11:04 | XR_ITS ---
FINAL REPORT TECHNIQUE: Chest PA & Lateral CLINICAL HISTORY: CHRONIC COUGH COMPARISON: September 27, 2022 FINDINGS: 2 views of the chest were performed. The heart size is normal. The mediastinum is within normal limits. There is no acute cardiopulmonary process. There are no pleural effusions. There is no pneumothorax. The bony thorax appears intact. IMPRESSION: No acute cardiopulmonary process. Reviewed, Interpreted and Dictated by Salinas Goodman MD Transcribed by Rajiv Alex Authenticated and [facility]
== END ==
PROVIDERS: PCP Family Medicine; Visit Provider Family Medicine
DX: R05.3 Chronic cough (principal); M79.605 Pain in left leg
CPT/HCPCS: 71046; 72110

== ENCOUNTER → 2023-02-21 08:47 | Outpatient (CLI) | payer OTHER, SELFPAY ==
--- NOTE | 2023-02-21 | CA_ITS ---
FINAL REPORT TECHNIQUE: Color Doppler, duplex Doppler and parr scale sonography of the bilateral neck arterial vasculature was performed. Velocities were measured in the carotid arteries. Stenosis evaluation based on the validated velocity criteria. CLINICAL HISTORY: YANA (previous carotid bilateral 20-49% stenosis 02/2021), HTN, hyperlipidemia, DM, multiple cardiac stents. FINDINGS: The peak systolic velocity of the right common carotid artery is 104 cm/s. The peak systolic velocity of the right internal carotid artery is 110 cm/s and end diastolic velocity 39 cm/s. The ICA/CCA ratio is 1 point. A minimal amount of plaque is present. The right external carotid artery is patent. The right vertebral artery is patent with antegrade flow. The peak systolic velocity of the left common carotid artery is 105 cm/s. The peak systolic velocity of the left internal carotid artery is 104 cm/s and end diastolic velocity at 38 cm/s. The ICA/CCA ratio is 1.0. A minimal amount of plaque is present. The left external carotid artery is patent.The left vertebral artery is patent with antegrade flow. IMPRESSION: Less than 50% bilateral carotid stenosis. Bilateral patent vertebral arteries with antegrade flow. If indicated, CTA or MRA could further evaluate. Reviewed, Interpreted and Dictated by Salinas Goodman MD Transcribed by Alesia Juarez Authenticated and . [facility]
== END ==
LOC: RT 08:47
PROVIDERS: PCP Family Medicine; Visit Provider Nurse Practitioner Family
DX: R42 Dizziness and giddiness (principal); R20.0 Anesthesia of skin
CPT/HCPCS: 93880

== ENCOUNTER 2023-07-07 14:44 | Emergency (ER) | payer MEDICARE, SELFPAY ==
[2023-07-07 14:46] VITALS: PULSE 60; RESP 20; TEMP 36.7; O2SAT 97; BMI 35.6
--- NOTE | 2023-07-07 15:03 | EXP.UTC ---
Discharge Plan Disposition Patient Disposition: Home, Self-Care Condition: Good Prescriptions Prescriptions: New gabapentin 100 mg capsule 100 mg PO BID Qty: 30 0RF No Action omeprazole 40 mg capsule,delayed release(DR/EC) 40 mg PO DAILY Patient Comments: TAKE 1 CAPSULE BY MOUTH ONCE DAILY levothyroxine [Euthyrox] 112 mcg tablet 112 mcg PO DAILY Patient Comments: TAKE 1 TABLET BY MOUTH ONCE DAILY losartan 50 mg tablet 50 mg PO DAILY atenolol 50 mg tablet 25 mg PO DAILY magnesium oxide 400 mg magnesium capsule 400 mg PO DAILY mecobalamin (vitamin B12) 1,000 mcg tablet,chewable 1,000 mcg PO DAILY Nurtec ODT 75 mg tablet,disintegrating 75 mg PO .qod PRN (Reason: Migraine with aura) 30 Days Qty: 16 11RF metformin 500 mg tablet extended release 24 hr 500 mg PO DAILY Patient Comments: TAKE 1 TABLET BY MOUTH ONCE DAILY spironolactone 25 mg tablet 25 mg PO DAILY Qty: 30 4RF hydrochlorothiazide 25 MG tablet 25 mg PO DAILY folic acid 1 mg tablet 3 mg PO DAILY aspirin 81 mg Tablet,Chewable 81 mg PO DAILY isosorbide mononitrate 30 mg Tablet Extended Release 24 Hr 30 mg PO DAILY Qty: 30 0RF ranolazine 500 mg Tablet Extended Release 12 Hr 500 mg PO BID Qty: 60 0RF ropinirole 0.25 MG tablet 0.25 mg PO HS atorvastatin 40 MG tablet 40 mg PO HS Referrals Follow up/Referrals: Jamie Chahal MD [Primary Care Provider] - See instructions Activity Restrictions/Add. Instructions Additional Instructions/Restrictions: Please return to the emergency department if you experience any new or worsening symptoms. Clinical Impressions Clinical Impression: TMJ arthralgia Qualifiers: Laterality: left Qualified Code(s): M26.622 - Arthralgia of left temporomandibular joint Instructions Patient Instructions: TMJ Syndrome (Alternative Therapy), Temporomandibular Disorder, DI for Temporomandibular Disorder Discharge ED Provider: Vasiliy Garland [facility] [place] HPI <Wil King APRN - Last Filed: 07/14/23 20:31> General Chief complaint: Chest Pain Stated complaint: jaw pain Time Seen by Provider: 07/07/23 15:03 Related Data Home Medications Medication Instructions Recorded Confirmed ropinirole 0.25 mg tablet 0.25 mg PO HS Restless legs 02/22/18 03/30/23 syndrome hydrochlorothiazide 25 mg tablet 25 mg PO DAILY Hypertension 01/20/20 02/13/23 atorvastatin 40 mg tablet 40 mg PO HS Cholesterol 06/23/20 02/13/23 atenolol 50 mg tablet 25 mg PO DAILY Hypertension 07/04/20 02/13/23 omeprazole 40 mg capsule,delayed 40 mg PO DAILY GERD 05/15/21 02/13/23 release magnesium oxide 400 mg PO DAILY Supplement 06/05/21 02/13/23 mecobalamin (vitamin B12) 1,000 1,000 mcg PO DAILY Supplement 06/05/21 02/13/23 mcg chewable tablet levothyroxine 112 mcg tablet 112 mcg PO DAILY THYROID 05/28/22 02/13/23 (Euthyrox) losartan 50 mg tablet 50 mg PO DAILY Hypertension 05/28/22 02/13/23 folic acid 1 mg tablet 3 mg PO DAILY Supplement 07/10/22 02/13/23 aspirin 81 mg chewable tablet 81 mg PO DAILY HEART HEALTH 07/11/22 02/13/23 metformin 500 mg tablet,extended 500 mg PO DAILY 02/13/23 02/13/23 release 24 hr Previous Rx's Medication Instructions Recorded Nurtec ODT 75 mg disintegrating 75 mg PO .qod PRN Migraine with 01/03/22 tablet (rimegepant) aura 30 days #16 tabs spironolactone 25 mg tablet 25 mg PO DAILY . #30 tabs 07/03/22 isosorbide mononitrate 30 mg 30 mg PO DAILY #30 tabs 07/12/22 tablet,extended release 24 hr ranolazine 500 mg tablet,extended 500 mg PO BID #60 tabs 07/12/22 release,12 hr gabapentin 100 mg capsule 100 mg PO BID #30 caps 07/07/23 Allergies Allergy/AdvReac Type Severity Reaction Status Date / Time dexamethasone [DEXAMETHASONE] Allergy Unknown Verified 02/13/23 13:43 triamcinolone [From KENALOG] Allergy Unknown Verified 02/13/23 13:43 isosorbide AdvReac Intermediate headache Verified 01/17
--- NOTE | 2023-07-07 15:11 | ECG_ITS ---
APPROVED REPORT Exam: Resting ECG HR:66 bpm ECG Measurements Heart Rate 66 AXES MO 183 P 41 QRSd 97 QRS 7 QT 383 T 31 QTc 396 Conclusion SINUS RHYTHM LOW QRS VOLTAGE IN PRECORDIAL LEADS [QRS DEFLECTION < 1.0 mV IN CHEST LEADS] BORDERLINE ECG UNCONFIRMED REPORT Electronically signed by : Harpreet Cole MD 07/08/2023 19:44:21
[2023-07-07 15:13] VITALS: BP 150/57; PULSE 73; RESP 18; TEMP 36.9; O2SAT 98; BMI 35.6
--- NOTE | 2023-07-07 15:17 | XR_ITS ---
FINAL REPORT CLINICAL HISTORY: jaw pain COMPARISON: 10/17/2022 FINDINGS: The heart size is normal. The mediastinum is normal. There is no focal infiltrate or edema. There are no pleural effusions. There is no pneumothorax. There is no osseous abnormality. IMPRESSION: No acute cardiopulmonary process Reviewed, Interpreted and Dictated by Salinas Goodman MD Transcribed by Marita Schwab Authenticated and [facility]
[2023-07-07 15:20] VITALS: PULSE 63
[2023-07-07 15:26] LABS: Basophils % 0.4 % (0.1-2.0); Eosinophils # 0.2 K/mm3 (0.0-0.4); Eosinophils % 3.1 % (0.1-12.0); Hematocrit 32.7 % (37.0-47.0); Hemoglobin 10.9 g/dL (12.2-16.2); Lymphocytes # 1.3 K/mm3 (0.7-4.5); Lymphocytes % 21.2 % (10-50); Mean Corpuscular HGB Conc 33.3 g/dL (31.8-35.4); Mean Corpuscular Hemoglobin 31.3 pg (27.0-31.2); Mean Corpuscular Volume 93.9 fl (81-99); Mean Platelet Volume 7.5 fl (7.4-10.4); Monocytes # 0.4 K/mm3 (0.1-1.0); Monocytes % 6.6 % (1.7-9.3); Neutrophils # 4.3 K/mm3 (1.8-7.8); Neutrophils % 68.7 % (37.0-80.0); Platelet Count 424 K/mm3 (142-424); Red Blood Count 3.48 M/mm3 (4.20-5.40); White Blood Count 6.2 K/mm3 (4.8-10.8)
[2023-07-07 15:38] LABS: Anion Gap 14.3 mEq/L (5-15); Blood Urea Nitrogen 18 mg/dl (7-17); Calcium 9.1 mg/dl (8.4-10.2); Carbon Dioxide 26 mmol/L (22.0-30.0); Chloride 100 mmol/L (98-107); Creatinine Clearance Estimated 81 mL/min (50-200); Estimated Glomerular Filt Rate 56 ml/min (>60); GFR (African American) 68 ML/MIN (>60); Glucose 154 mg/dl (74-100); Potassium 4.3 mmoL/L (3.5-5.1); Sodium 136 mmol/L (136-145)
[2023-07-07 15:58] LABS: Troponin I < 0.01 ng/ml (0.00-0.034)
[2023-07-07 16:16] LABS: Free T4 (Free Thyroxine) 1.11 ng/dl (0.78-2.19)
[2023-07-07 16:30] LABS: Thyroid Stimulating Hormone 0.35 uIU/mL (0.465-4.68)
[2023-07-07 18:30] LABS: Troponin I < 0.01 ng/ml (0.00-0.034)
[2023-07-07 18:31] VITALS: BP 125/61; PULSE 59; RESP 17; TEMP 36.7; O2SAT 97
== END 2023-07-07 19:04 | disposition home or self-care (01) ==
LOC: UTC 14:50 → ER 15:12
PROVIDERS: Emergency Provider Emergency Medicine; PCP Family Medicine
DX: M26.622 Arthralgia of left temporomandibular joint (principal); I25.110 Atherosclerotic heart disease of native coronary artery with unstable angina pectoris; I10 Essential (primary) hypertension; E03.9 Hypothyroidism, unspecified; E78.5 Hyperlipidemia, unspecified; G90.A Postural orthostatic tachycardia syndrome [POTS]; K21.9 Gastro-esophageal reflux disease without esophagitis
CPT/HCPCS: 71045; 80048; 84439; 84443; 84484; 85025; 93005; 99285

== ENCOUNTER → 2023-08-14 11:44 | Outpatient (CLI) | payer MEDICARE, SELFPAY ==
[2023-08-14 12:53] LABS: Basophils % 0.2 % (0.1-2.0); Eosinophils # 0.1 K/mm3 (0.0-0.4); Eosinophils % 1.5 % (0.1-12.0); Hematocrit 35.4 % (37.0-47.0); Hemoglobin 11.2 g/dL (12.2-16.2); Lymphocytes # 1.4 K/mm3 (0.7-4.5); Lymphocytes % 25.8 % (10-50); Mean Corpuscular HGB Conc 31.5 g/dL (31.8-35.4); Mean Corpuscular Hemoglobin 30.1 pg (27.0-31.2); Mean Corpuscular Volume 95.7 fl (81-99); Mean Platelet Volume 8.1 fl (7.4-10.4); Monocytes # 0.4 K/mm3 (0.1-1.0); Monocytes % 8.4 % (1.7-9.3); Neutrophils # 3.3 K/mm3 (1.8-7.8); Neutrophils % 64.1 % (37.0-80.0); Platelet Count 489 K/mm3 (142-424); Red Cell Distribution Width 14.9 % (11.5-17.5); White Blood Count 5.2 K/mm3 (4.8-10.8)
[2023-08-14 12:54] LABS: Alanine Aminotransferase 27 U/L (12-78); Albumin Level 4.1 g/dl (3.5-5.0); Alkaline Phosphatase 73 U/L (38-126); Anion Gap 17.4 mEq/L (5-15); Aspartate Amino Transferase 28 U/L (14-36); Bilirubin,Direct 0.1 mg/dl (0.0-0.4); Bilirubin,Indirect 0.3 mg/dL (0.0-0.9); Bilirubin,Total 0.4 mg/dl (0.2-1.3); Bilirubin,Unconjugated 0.3 mg/dL (0.0-1.1); Blood Urea Nitrogen 12 mg/dl (7-17); Calcium 9.4 mg/dl (8.4-10.2); Carbon Dioxide 24 mmol/L (22.0-30.0); Chloride 93 mmol/L (98-107); Chol/HDL Ratio 2.1 (1-3.5); Cholesterol 130 mg/dl (140-200); Estimated Glomerular Filt Rate 56 ml/min (>60); GFR (African American) 68 ML/MIN (>60); Glucose 115 mg/dl (74-100); HDL Cholesterol 61 mg/dl (40-60); Magnesium 1.7 mg/dl (1.6-2.3); Potassium 4.4 mmoL/L (3.5-5.1); Sodium 130 mmol/L (136-145); Total Protein,Serum 6.9 g/dl (6.3-8.2); Triglycerides 103 mg/dl (30-150); VLDL Cholesterol 21 mg/dL (0-40)
[2023-08-14 13:05] LABS: Direct LDL Cholesterol 56.93 mg/dL (100-129)
[2023-08-14 13:09] LABS: Free T4 (Free Thyroxine) 1.23 ng/dl (0.78-2.19)
[2023-08-14 13:23] LABS: Thyroid Stimulating Hormone 1.56 uIU/mL (0.465-4.68)
== END ==
PROVIDERS: PCP Family Medicine; Visit Provider Nurse Practitioner
DX: E78.5 Hyperlipidemia, unspecified (principal); I10 Essential (primary) hypertension; I25.10 Atherosclerotic heart disease of native coronary artery without angina pectoris; I65.29 Occlusion and stenosis of unspecified carotid artery; Z95.5 Presence of coronary angioplasty implant and graft; Z79.899 Other long term (current) drug therapy
CPT/HCPCS: 36415; 80048; 80061; 80076; 83735; 84439; 84443; 85025

== ENCOUNTER → 2023-08-22 12:54 | Outpatient (CLI) | payer MEDICARE, SELFPAY ==
--- NOTE | 2023-08-22 12:54 | US_ITS ---
FINAL REPORT TECHNIQUE: Sonographic images of the thyroid were obtained. CLINICAL HISTORY: hx thyroid nodules FINDINGS: THYROID ULTRASOUND The right thyroid gland measures 3.8 x 1.1 x 1.0 cm. The parenchyma shows normal echogenicity. There is a 4 x 3 x 3 mm solid, hypoechoic TI-RADS 4 nodule. There is a 5 x 4 x 4 mm, solid, isoechoic TI-RADS 3 nodule. The left thyroid gland measures 3.4 x 0.9 x 1.5 cm. The parenchyma shows normal echogenicity. There is a 4 x 4 x 2 mm, solid, hypoechoic TI-RADS 4 nodule. IMPRESSION: Small bilateral thyroid nodules. No follow-up is required. Reviewed, Interpreted and Dictated by Van Barnard III, MD Transcribed by Indira Gordon Authenticated and . [facility]
== END ==
LOC: RAD 12:54
PROVIDERS: PCP Family Medicine; Visit Provider Nurse Practitioner
DX: E04.1 Nontoxic single thyroid nodule (principal)
CPT/HCPCS: 76536

== ENCOUNTER → 2023-09-02 12:00 | Outpatient (CLI) | payer MEDICARE, SELFPAY ==
[2023-09-02 12:57] LABS: Chloride 96 mmol/L (98-107); Potassium 4.3 mmoL/L (3.5-5.1); Sodium 131 mmol/L (136-145)
[2023-09-02 13:00] LABS: Anion Gap 13.3 mEq/L (5-15); Blood Urea Nitrogen 17 mg/dl (7-17); Calcium 9.2 mg/dl (8.4-10.2); Carbon Dioxide 26 mmol/L (22.0-30.0); Estimated Glomerular Filt Rate 63 ml/min (>60); GFR (African American) 77 ML/MIN (>60); Glucose 106 mg/dl (74-100); Magnesium 1.7 mg/dl (1.6-2.3)
[2023-09-02 13:17] LABS: Free T4 (Free Thyroxine) 1.29 ng/dl (0.78-2.19)
[2023-09-02 13:30] LABS: Thyroid Stimulating Hormone 0.79 uIU/mL (0.465-4.68)
== END ==
PROVIDERS: Nurse Practitioner; PCP Family Medicine; Visit Provider Nurse Practitioner
DX: E87.1 Hypo-osmolality and hyponatremia (principal); K21.9 Gastro-esophageal reflux disease without esophagitis; E04.1 Nontoxic single thyroid nodule; R13.10 Dysphagia, unspecified
CPT/HCPCS: 36415; 80048; 83735; 84439; 84443

== ENCOUNTER → 2023-11-06 13:45 | Outpatient (CLI) | payer MEDICARE, SELFPAY ==
[2023-11-06 15:35] LABS: Anion Gap 11.7 mEq/L (5-15); Blood Urea Nitrogen 17 mg/dl (7-17); Calcium 9.1 mg/dl (8.4-10.2); Carbon Dioxide 27 mmol/L (22.0-30.0); Chloride 98 mmol/L (98-107); Estimated Glomerular Filt Rate 50 ml/min (>60); GFR (African American) 61 ML/MIN (>60); Glucose 120 mg/dl (74-100); Potassium 4.7 mmoL/L (3.5-5.1); Sodium 132 mmol/L (136-145)
== END ==
PROVIDERS: PCP Family Medicine; Visit Provider Nurse Practitioner
DX: E87.1 Hypo-osmolality and hyponatremia (principal)
CPT/HCPCS: 36415; 80048

== ENCOUNTER 2024-03-17 16:15 | Outpatient (CLI) | payer MEDICARE, SELFPAY ==
--- NOTE | 2024-03-17 16:21 | MM_ITS ---
PROCEDURE INFORMATION: Exam: MG Bilateral Screening 3D Mammography Exam date and time: 03/17/2024 4:12 PM Age: 63 years old Clinical indication: Screening examination. Her maternal aunt had breast cancer. TECHNIQUE: Imaging protocol: Bilateral Screening tomosynthesis and 2D mammography including computer-aided detection (CAD) when performed. COMPARISON: 1. MG MM DIG SCREENING MAMM BI W/CAD 03/17/2020 9:04 AM 2. MG SCBI MM Dig screening mamm BI w/CAD 02/22/2019 10:58 AM 3. MG SCBI MM Dig screening mamm BI w/CAD 02/19/2018 5:11 PM 4. MG DMSB DIG MAMM-SCREEN GAYLE W/CAD 12/27/2016 3:24 PM FINDINGS: MAMMOGRAPHY: Breast composition: There are scattered areas of fibroglandular density. Mass: None. Architectural distortion: None. Calcifications: No suspicious calcifications. Asymmetric density: None. Skin thickening: None. Axillary adenopathy: None. IMPRESSION: No mammographic evidence of malignancy. Annual screening is recommended unless otherwise clinically indicated. ASSESSMENT: BI-RADS Category 1: Negative
== END 2024-03-17 23:59 | disposition home or self-care (01) ==
LOC: RAD 16:17
PROVIDERS: PCP Family Medicine; Referring Provider Family Medicine; Visit Provider Family Medicine
DX: Z12.31 Encounter for screening mammogram for malignant neoplasm of breast (principal)
CPT/HCPCS: 77063; 77067

== ENCOUNTER 2024-04-03 09:40 | Emergency (ER) | payer MEDICARE, SELFPAY ==
[2024-04-03] VITALS (13 sets, daily range): BP systolic 147–205; BP diastolic 64–91; PULSE 66–80; RESP 10–20; TEMP 36.1–36.6; O2SAT 96–99; BMI 35.6
--- NOTE | 2024-04-03 09:40 | ECG_ITS ---
APPROVED REPORT Exam: Resting ECG HR:79 bpm ECG Measurements Heart Rate 79 AXES AL 167 P 152 QRSd 93 QRS -16 QT 357 T 93 QTc 391 Conclusion sinus rhythm Electronically signed by : MAGUE MARIA, 04/03/2024 15:37:30
--- NOTE | 2024-04-03 09:53 | CT_ITS ---
PROCEDURE INFORMATION: Exam: CTA Chest With Contrast Exam date and time: 04/03/2024 10:48 AM Age: 64 years old Clinical indication: Pain; Radiating; Additional info: New chest pain radiating through to lumbar spine TECHNIQUE: Imaging protocol: Computed tomographic angiography of the chest with contrast. Exam focused on the arteries. 3D rendering (Not supervised by radiologist): MIP and/or 3D reconstructed images were created by the technologist. Radiation optimization: All CT scans at this facility use at least one of these dose optimization techniques: automated exposure control; mA and/or kV adjustment per patient size (includes targeted exams where dose is matched to clinical indication); or iterative reconstruction. Contrast material: ISOVUE; Contrast volume: 100 ml; Contrast route: INTRAVENOUS (IV); COMPARISON: CR XR CHEST PORTABLE 04/03/2024 9:59 AM FINDINGS: Pulmonary arteries: No evidence of pulmonary embolus to the segmental level. Aorta: No aneurysm of the aorta. No dissection of the aorta. Lungs: Mild Ground-glass opacity in the right middle lobe may represent minimal atelectasis or pneumonia. . Pleural spaces: Unremarkable. No pneumothorax. No pleural effusion. Heart: Unremarkable. No cardiomegaly. No pericardial effusion. Coronary arteries: Coronary artery calcifications may indicate coronary artery disease. Lymph nodes: Unremarkable. No enlarged lymph nodes. Bones/joints: Unremarkable. No acute fracture. Soft tissues: Unremarkable. IMPRESSION: 1. No evidence of pulmonary embolus to the segmental level. 2. No aneurysm of the aorta. 3. No dissection of the aorta. 4. Mild Ground-glass opacity in the right middle lobe may represent minimal atelectasis or pneumonia. .
--- NOTE | 2024-04-03 09:53 | CT_ITS ---
PROCEDURE INFORMATION: Exam: CTA Abdomen and Pelvis With Contrast Exam date and time: 04/03/2024 10:48 AM Age: 64 years old Clinical indication: Abdominal pain; Generalized; Additional info: New chest pain radiating through to lumbar spine TECHNIQUE: Imaging protocol: Computed tomographic angiography of the abdomen and pelvis with contrast. Exam focused on the arteries. 3D rendering (Not supervised by radiologist): MIP and/or 3D reconstructed images were created by the technologist. Radiation optimization: All CT scans at this facility use at least one of these dose optimization techniques: automated exposure control; mA and/or kV adjustment per patient size (includes targeted exams where dose is matched to clinical indication); or iterative reconstruction. Contrast material: ISOVUE; Contrast volume: 100 ml; Contrast route: INTRAVENOUS (IV); COMPARISON: CT ABDOMEN PELVIS W CON 01/14/2021 12:26 AM FINDINGS: Lungs: Ground-glass opacity in the right middle lobe may represent minimal atelectasis or pneumonia.. Coronary arteries: Coronary artery calcifications may indicate coronary artery disease. Pulmonary arteries: No evidence of pulmonary embolus to the segmental level. Aorta: No aneurysm of the aorta. No dissection of the aorta. Celiac trunk and mesenteric arteries: No occlusion or significant stenosis. Renal arteries: No occlusion or significant stenosis. Right iliac arteries: No occlusion or significant stenosis. Left iliac arteries: No occlusion or significant stenosis. Liver: No mass. Gallbladder and bile ducts: Unremarkable. No calcified stones. No ductal dilation. Pancreas: Unremarkable. No mass. No ductal dilation. Spleen: Unremarkable. No splenomegaly. Adrenal glands: Unremarkable. No mass. Kidneys and ureters: Unremarkable. No solid mass. No hydronephrosis. Stomach and bowel: Unremarkable. No obstruction. No mucosal thickening. Appendix: Normal appendix Intraperitoneal space: Unremarkable. No free air. No significant fluid collection. Lymph nodes: Unremarkable. No enlarged lymph nodes. Urinary bladder: Unremarkable. No mass. Reproductive: Surgical resection of the uterus Bones/joints: No acute fracture. Soft tissues: Unremarkable. IMPRESSION: 1. No evidence of pulmonary embolus to the segmental level. 2. No aneurysm of the aorta. 3. No dissection of the aorta. 4. Ground-glass opacity in the right middle lobe may represent minimal atelectasis or pneumonia..
--- NOTE | 2024-04-03 09:53 | [facility].EDCP ---
Discharge Plan Disposition Patient Disposition: Home, Self-Care Prescriptions Prescriptions: No Action omeprazole 40 mg capsule,delayed release(DR/EC) 40 mg PO DAILY Patient Comments: TAKE 1 CAPSULE BY MOUTH ONCE DAILY cholecalciferol (vitamin D3) 50 mcg (2,000 unit) capsule 50 mcg PO DAILY Nurtec ODT 75 mg tablet,disintegrating 75 mg PO .qod 30 Days Qty: 15 11RF levothyroxine 100 mcg tablet PO DAILY Patient Comments: TAKE 1 TABLET BY MOUTH ONCE DAILY famotidine [Acid Technical Service Representative (famotidine)] 20 mg tablet 40 mg PO HS Qty: 180 3RF losartan 100 mg tablet 50 mg PO DAILY atenolol 50 mg tablet 25 mg PO DAILY magnesium oxide 400 mg magnesium capsule 400 mg PO DAILY mecobalamin (vitamin B12) 1,000 mcg tablet,chewable 1,000 mcg PO DAILY metformin 500 mg tablet extended release 24 hr 500 mg PO DAILY Patient Comments: TAKE 1 TABLET BY MOUTH ONCE DAILY spironolactone 25 mg tablet 25 mg PO DAILY Qty: 30 4RF hydrochlorothiazide 12.5 mg tablet 12.5 mg PO DAILY Qty: 90 1RF folic acid 1 mg tablet 3 mg PO DAILY aspirin 81 mg Tablet,Chewable 81 mg PO DAILY isosorbide mononitrate 30 mg Tablet Extended Release 24 Hr 30 mg PO DAILY Qty: 30 0RF ranolazine 500 mg Tablet Extended Release 12 Hr 500 mg PO BID Qty: 60 0RF ropinirole 0.25 MG tablet 0.25 mg PO HS atorvastatin 40 MG tablet 40 mg PO HS Referrals Follow up/Referrals: Provider,Referral, MD [Referring] - See instructions Activity Restrictions/Add. Instructions Additional Instructions/Restrictions: Call your family doctor to establish care for this visit to the emergency department and schedule follow-up within 48 hours to ensure improvement. If you have any worsening of your condition or any other concerning signs or symptoms, return to the emergency department or your primary care doctor for further evaluation. Clinical Impressions Clinical Impression: Chest pain Discharge ED Provider: Alejandro Walter General Chief Complaint: Chest Pain Stated Complaint: Chest Pain Time Seen by Provider: 04/03/24 09:52 Mode of Arrival: Wheelchair Source of Information: Patient Limitations: No Limitations Description of Symptoms (Recalled from ER Triage Doc. by RN): Patient reports mid sternal chest pain that started yesterday. Complaint of it radiating to her back. Denies nausea or vomiting. Patient did take 2-81mg of Aspirin prior to arrival. History of Present Illness HPI narrative: 64-year-old female history of hypertension, hyperlipidemia, CAD status post stenting x 8 currently on daily aspirin presenting with chest pain and back pain. Patient states that last night around 9 PM on 04/02, patient began having substernal chest pain that was moderate in intensity. She states that it feels just like her previous heart attacks. States that it radiates through into her thoracolumbar spine. No bowel or bladder dysfunction, neurologic deficits or weakness in her lower extremities, skin color changes in her lower extremities, nausea or vomiting, diaphoresis. She did have associated shortness of breath, no PND or orthopnea. Please note that above description of symptoms, in this electronic medical record under categorization of recalled from ER triage doctor by RN are reflective of an initial nursing assessment, however, is not reflective of my full history and physical exam that was personally taken and clarified. Consequentially, this preceding description of symptoms, which may include the patient's categorized chief complaint in the EMR, do not reflect my personal clinical impression, and the ultimate description of history of present illness and patient stated complaints should be deferred to this section of the note. Unless stated otherwise or congruent with this section of the note, additional signs, symptoms, or incongruence should be interpreted as inaccurate with my clinical impression. Related Data Home Medications Medication Instructions Recorded Confirmed ropinirole 0.25 mg tablet 0.25 mg PO HS Restless legs 01/08/18 03/15/24 syndrome atorvastatin 40 mg tablet 40 mg PO HS Cholesterol 06/23/20 03/15/24 atenolol 50 mg tablet 25 mg PO DAILY Hypertension 07/04/20 03/15/24 omeprazole 40 mg capsule,delayed 40 mg PO DAILY GERD 05/15/21 03/15/24 release magnesium oxide 400 mg PO DAILY Supplement 06/05/21 03/15/24 mecobalamin (vitamin B12) 1,000 1,000 mcg PO DAILY Supplement 06/05/21 03/15/24 mcg chewable tablet folic acid 1 mg tablet 3 mg PO DAILY Supplement 07/10/22 03/15/24 aspirin 81 mg chewable tablet 81 mg PO DAILY HEART HEALTH 07/11/22 03/15/24 metformin 500 mg tablet,extended 500 mg PO DAILY 02/13/23 03/15/24 release 24 hr levothyroxine 100 mcg tablet mcg PO DAILY 07/23/23 03/15/24 cholecalciferol (vitamin D3) 50 50 mcg PO DAILY 08/13/23 03/15/24 mcg (2,000 unit) capsule losartan 100 mg tablet 50 mg PO DAILY 03/15/24 03/15/24 Previous Rx's Medication Instructions Recorded spironolactone 25 mg tablet 25 mg PO DAILY . #30 tabs 07/03/22 isosorbide mononitrate 30 mg 30 mg PO DAILY #30 tabs 07/12/22 tablet,extended release 24 hr ranolazine 500 mg tablet,extended 500 mg PO BID #60 tabs 07/12/22 release,12 hr famotidine 20 mg tablet (Acid 40 mg (2 x 20 mg) PO HS Gerd 07/23/23 Technical Service Representative (famotidine)) symptoms #180 tabs Nurtec ODT 75 mg disintegrating 75 mg PO .qod Migraine with aura 08/15/23 tablet (rimegepant) 30 days #15 tabs hydrochlorothiazide 12.5 mg tablet 12.5 mg PO DAILY #90 tabs 03/19/24 Allergies Allergy/AdvReac Type Severity Reaction Status Date / Time dexamethasone [DEXAMETHASONE] Allergy Unknown Verified 03/15/24 14:32 triamcinolone [From KENALOG] Allergy Unknown Verified 03/15/24 14:29 [facility] Disclaimer: The information contained in this section may have been updated after the patient was seen, as this information can be updated by other users. Medical History Hyponatremia Thyroid Nodule Dysphagia History of left heart catheterization GERD (gastroesophageal reflux disease) Restless leg syndrome Migraine Allergies History of chest pain COVID-19 Hypotension Anemia Syncope Vasovagal syncope Sinus bradycardia HLD (hyperlipidemia) POTS (postural orthostatic tachycardia syndrome) Unstable angina Coronary artery disease History of syncope Hypothyroidism Hypertension Minor head injury without loss of consciousness Cholelithiasis Surgical History History of coronary artery stent placement H/O colonoscopy H/O: hysterectomy History of section Family History Other Coronary artery disease Family history of cancer Family history of diabetes mellitus type II Family history of hypertension Social History Smoking Status: Never smoker second hand exposure: No alcohol intake: never substance use type: denies use current occupational status: unemployed Travel in the last 8 weeks: None household members: spouse housing: house 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 current occupational exposures/hazards: No caffeine: Yes ROS Obtained: Yes All systems reviewed & no additional complaints except as documented Physical Exam General General appearance: alert Neck Neck exam: Present trachea midline Chest Chest inspection: Present normal inspection and symmetric chest wall rise Respiratory Respiratory exam: Present normal lung sounds bilaterally; Absent respiratory distress, wheezes, stridor, accessory muscle use or prolonged expiratory phase Cardiovascular Cardiovascular exam: Present regular rate, normal rhythm, normal heart sounds and other (Pulses equal and symmetric bilaterally upper and lower extremities) Abdominal Exam Abdominal exam: Present soft; Absent distention, tenderness, mass or pulsatile mass Extremities Exam Extremities exam: Absent edema Neurological Exam Neurological exam: Present alert, oriented X3, CN II-XII intact and normal gait; Absent motor sensory deficit Skin Skin exam: Present warm and dry; Absent cyanosis, diaphoresis or pallor HEART Score HEART Score HEART Score assessment performed?: Yes History (anamnesis): Moderately suspicious ECG: Normal Age: 45-65 years Risk factors: 3 or more risk factors Troponin: </= normal limit HEART Score: 4 Critical Care Critical Care Time Critical Care Time: No Medical Decision Making Medical Records Medical records reviewed: Yes I reviewed the patient's medical records. Alexi Inquiry Pt receiving controlled substance: No Alexi was queried for this patient: No Vital Signs Vital Signs: 04/03/24 09:40 04/03/24 09:48 04/03/24 10:00 Temperature 97.9 F 98 F 98 F Temperature Source Oral Oral Oral Pulse Rate 74 73 Pulse Rate [Radial] 76 Respiratory Rate 16 12 10 L Blood Pressure 171/91 H 160/71 H Blood Pressure [Right Arm] 205/88 H Blood Pressure Mean Blood Pressure Mean [Right Arm] 127 Blood Pressure Source Automatic Cuff Automatic Cuff Blood Pressure Source [Right Arm] Automatic Cuff Blood Pressure Position Supine Supine Blood Pressure Position [Right Arm] Sitting 02 Sat by Pulse Oximetry 96 99 98 Oxygen Delivery Method Room Air Room Air Room Air 04/03/24 10:27 04/03/24 11:00 04/03/24 11:30 Temperature Temperature Source Pulse Rate 80 71 Pulse Rate [Radial] Respiratory Rate 16 16 Blood Pressure 147/70 H 165/75 H 165/64 H Blood Pressure [Right Arm] Blood Pressure Mean Blood Pressure Mean [Right Arm] Blood Pressure Source Blood Pressure Source [Right Arm] Blood Pressure Position Sitting Sitting Blood Pressure Position [Right Arm] 02 Sat by Pulse Oximetry 98 99 Oxygen Delivery Method Room Air Room Air 04/03/24 12:00 04/03/24 12:18 04/03/24 12:46 Temperature 97.9 F Temperature Source Pulse Rate 69 66 66 Pulse Rate [Radial] Respiratory Rate 16 14 20 Blood Pressure 151/75 H 166/71 H 162/64 H Blood Pressure [Right Arm] Blood Pressure Mean Blood Pressure Mean [Right Arm] Blood Pressure Source Automatic Cuff Blood Pressure Source [Right Arm] Blood Pressure Position Sitting Blood Pressure Position [Right Arm] 02 Sat by Pulse Oximetry 99 99 Oxygen Delivery Method Room Air Room Air Room Air 04/03/24 13:15 04/03/24 13:30 04/03/24 14:00 Temperature Temperature Source Pulse Rate 71 71 71 Pulse Rate [Radial] Respiratory Rate 16 16 16 Blood Pressure 149/68 H 160/67 H 155/65 H Blood Pressure [Right Arm] Blood Pressure Mean 95 98 102 Blood Pressure Mean [Right Arm] Blood Pressure Source Blood Pressure Source [Right Arm] Blood Pressure Position Blood Pressure Position [Right Arm] 02 Sat by Pulse Oximetry 98 98 99 Oxygen Delivery Method Lab Data Labs: Lab Results 04/03/24 09:42: WBC 6.3, RBC 3.44 L, Hgb 11.3 L, Hct 33.5 L, MCV 97.4, MCH 32.9 H, MCHC 33.8, RDW 15.7, Plt Count 512 H, MPV 8.4, Neut % (Auto) 67.4, Lymph % (Auto) 24.0, Carson % (Auto) 6.7, Eos % (Auto) 1.3, Baso % (Auto) 0.7, Neut # (Auto) 4.3, Lymph # (Auto) 1.5, Carson # (Auto) 0.4, Eos # (Auto) 0.1, Baso # (Auto) 0.0, PT 10.7, INR 0.99, APTT 24.7, Sodium 135 L, Potassium 4.0, Chloride 97 L, Carbon Dioxide 27, Anion Gap 15.0, BUN 14, Creatinine 0.90, Estimated Creat Clear 80, Estimated GFR 63, Est GFR ( Amer) 77, Glucose 124 H, Lactate 1.4, Calcium 9.7, Total Bilirubin 0.6, AST 30, ALT 22, Alkaline Phosphatase 91, Troponin I < 0.01, NT-Pro-B Natriuret Pep 78.3, Total Protein 7.7, Albumin 4.7, Globulin 3.0, Albumin/Globulin Ratio 1.6, Lipase 172 04/03/24 13:05: Troponin I < 0.01 04/03/24 09:42 04/03/24 09:42 Response Orders (Tests/Meds): ED MEDICATIONS Generic Name Dose Route Start Last Admin Trade Name Freq PRN Reason Stop Dose Admin Sodium Chloride 8 ml 04/03/24 09:53 Sodium Chloride 0.9% 10ml Vial IV 05/03/24 09:52 NEEDED PRN dilute pepcid Discontinued Medications Generic Name Dose Route Start Last Admin Trade Name Freq PRN Reason Stop Dose Admin Acetaminophen 1,000 mg 04/03/24 11:10 04/03/24 11:37 Acetaminophen 1,000mg/100ml Vial IV 04/03/24 11:11 1,000 mg ONCE ONE Administration Aspirin 162 mg 04/03/24 09:53 04/03/24 10:26 Aspirin 81mg Chewable Tablet PO 04/03/24 09:54 162 mg ONCE ONE Administration Famotidine 20 mg 04/03/24 09:53 04/03/24 10:26 Famotidine 20mg/2ml Vial IV 04/03/24 09:54 20 mg ONCE ONE Administration Iopamidol 100 ml 04/03/24 10:55 04/03/24 10:56 Iopamidol-370 (76%);100ml Bottle IV 04/03/24 10:56 100 ml ONCE ONE Administration Ketorolac Tromethamine 15 mg 04/03/24 11:10 04/03/24 11:37 Ketorolac 30mg/Ml Vial IV 04/03/24 11:11 15 mg ONCE ONE Administration Labetalol HCl 10 mg 04/03/24 09:53 04/03/24 10:27 Labetalol 20mg/4ml Syringe IV 04/03/24 09:54 Not Given ONCE ONE Sodium Chloride 10 ml 04/03/24 10:55 04/03/24 10:56 Sodium Chloride 0.9% 10ml Syr (Rad Only) IV 04/03/24 10:56 10 ml ONCE ONE Administration Sodium Chloride 50 ml 04/03/24 10:55 04/03/24 10:56 0.9 % Sodium Chloride 50 Ml Vial IV 04/03/24 10:56 50 ml ONCE ONE Administration ORDERS Category Date Time Status CT angio abdomen pelvis Stat Cat Scan 04/03/24 09:53 Completed CTA Chest [CT angio chest - dissection] Stat Cat Scan 04/03/24 09:53 Completed POCUS Point of Care (ER Only) Stat Exams 04/03/24 09:59 Ordered XR chest portable Stat Exams 04/03/24 09:54 Completed CBC w/Auto Diff [Complete Blood Count Auto Diff] Stat Lab 04/03/24 09:42 Completed Comprehensive Metabolic Panel Stat Lab 04/03/24 09:42 Completed Lactic Acid Stat Lab 04/03/24 09:42 Completed Lipase Stat Lab 04/03/24 09:42 Completed NT Pro Brain Natriuretic Pep. Stat Lab 04/03/24 09:42 Completed PT INR [Prothrombin Time INR] Stat Lab 04/03/24 09:42 Completed PTT [Activated Partial Thrombo Time] Stat Lab 04/03/24 09:42 Completed Troponin I Q3H Lab 04/03/24 13:05 Completed Troponin I Q3H Lab 04/03/24 16:00 Ordered Troponin I Stat Lab 04/03/24 09:42 Completed MDM Narrative Medical Decision Narrative: 64-year-old female history of hypertension, hyperlipidemia, CAD status post stenting x 8 currently on daily aspirin presenting with chest pain and back pain. Patient states that last night around 9 PM on 04/02, patient began having substernal chest pain that was moderate in intensity. She states that it feels just like her previous heart attacks. States that it radiates through into her thoracolumbar spine. No bowel or bladder dysfunction, neurologic deficits or weakness in her lower extremities, skin color changes in her lower extremities, nausea or vomiting, diaphoresis. She did have associated shortness of breath, no PND or orthopnea. History was obtained via conversation with patient. On arrival, patient hemodynamically stable, alert, oriented x4, appropriate, GCS 15, moving all extremities spontaneously, pupils equal and reactive to light. Full physical exam performed and significant for NIHSS 0, neurologically intact including cranial nerve, cerebellar, motor and sensory exam. Abdomen soft, nontender, nondistended, no evidence of pulsatile mass. Cardiac exam within normal limits, no murmurs, gallops, rubs. Cardiac sounds clearly auscultated. Lungs are clear to auscultation. Pulses equal and symmetric bilaterally in upper and lower extremities, no lower extremity edema. Differential includes microvascular coronary artery disease, CHF, ACS, TX, coronary artery dissection, pneumothorax, PE, dissection, pericarditis, myocarditis, pneumothorax, aortic aneurysm, pneumonia, bronchitis, among others. Patient was given 162 mg aspirin (took 2 aspirin just before coming to the emergency department) For symptomatic management and correction of underlying abnormalities. She was also given 10 mg IV labetalol for hypertensive urgency, given initial blood pressure 205/90 Workup independently interpreted and significant for nonactionable CBC or chemistry. LFTs normal. Lactate negative, lipase also negative. Initial troponin unremarkable and undetectable. Chest x-ray without acute cardiopulmonary airspace disease. CTA chest abdomen pelvis demonstrated no acute aortic abnormality. see radiology read for full review of final results. Independent interpretation of EKG shows sinus rhythm 79 beats a minute without ST or T wave changes concerning for acute ischemia. OK, QRS, QT intervals within normal limits. Patient placed on continuous cardiac monitoring and continuous pulse ox with initial blood pressure 205/88, heart rate 76, saturation 96 on room air. Heart score 4. Patient was placed in observation beginning at 10:45 AM in order to rule out evolving TX with delta troponins, cardiac monitoring and determine need for admission versus home-going. The patient was provided exams, cardiac monitoring, repeat evaluations while awaiting results. Independent interpretation of results demonstrated delta troponin. On reevaluation, patient feeling comfortable and at baseline, still has lumbar spine pain and on further conversation this is closer to her chronic pain for her. At this time, I feel patient is appropriate for discharge. Total observation time 3.5 hours. Because patient at baseline without signs or symptoms of clinical decompensation, deemed appropriate for discharge. Results were relayed to patient who voiced understanding and were agreeable to outpatient management and follow up. I discussed my clinical impression with patient and answered all questions. At this time, the evidence for any other entities in the differential is insufficient to warrant any further testing or ED observation. This was explained as well. Advisory was given that persistent or worsening symptoms require further evaluation. I confirmed the understanding of this discussion. Photographic Supervisor disclaimer Much of this encounter note is an electronic time broker spoken language to printed text. Electronic time broker of the spoken language may permit errors. Although I have reviewed the note, some errors may still exist.
--- NOTE | 2024-04-03 09:54 | XR_ITS ---
PROCEDURE INFORMATION: Exam: XR Chest Exam date and time: 04/03/2024 9:59 AM Age: 64 years old Clinical indication: Other: Chest pain to back; Additional info: Cp to back TECHNIQUE: Imaging protocol: Radiologic exam of the chest. Views: 1 view. COMPARISON: CR XR CHEST PORTABLE 07/07/2023 3:23 PM FINDINGS: Lungs: Unremarkable. No consolidation. Pleural spaces: Unremarkable. No pleural effusion. No pneumothorax. Heart/Mediastinum: Unremarkable. No cardiomegaly. Bones/joints: Unremarkable. IMPRESSION: No acute findings.
[2024-04-03 10:12] LABS: Alanine Aminotransferase 22 U/L (12-78); Albumin Level 4.7 g/dl (3.5-5.0); Albumin/Globulin Ratio 1.6 (1.1-1.8); Alkaline Phosphatase 91 U/L (38-126); Aspartate Amino Transferase 30 U/L (14-36); Bilirubin,Total 0.6 mg/dl (0.2-1.3); Blood Urea Nitrogen 14 mg/dl (7-17); Calcium 9.7 mg/dl (8.4-10.2); Carbon Dioxide 27 mmol/L (22.0-30.0); Chloride 97 mmol/L (98-107); Creatinine Clearance Estimated 80 mL/min (50-200); Estimated Glomerular Filt Rate 63 ml/min (>60); GFR (African American) 77 ML/MIN (>60); Glucose 124 mg/dl (74-100); Sodium 135 mmol/L (136-145); Total Protein,Serum 7.7 g/dl (6.3-8.2)
[2024-04-03 10:13] LABS: Activated Partial Thrombo Time 24.7 seconds (22.8-30.6); INR 0.99 (0.9-1.1); Prothrombin Time 10.7 seconds (10.1-12.5)
[2024-04-03 10:17] LABS: Lactic Acid 1.4 mmol/L (0.7-2.1)
[2024-04-03 10:19] LABS: Lipase 172 U/L (23-300)
[2024-04-03] MEDS: ASPIRIN 81MG CHEWABLE TABLET 162 MG PO (10:26)
[2024-04-03] MEDS: FAMOTIDINE 20MG/2ML VIAL 20 MG IV (10:26)
[2024-04-03 10:29] LABS: NT Pro Brain Natriuretic Pep. 78.3 pg/mL (0-125)
[2024-04-03 10:41] LABS: Troponin I < 0.01 ng/ml (0.00-0.034)
[2024-04-03] MEDS: 0.9 % SODIUM CHLORIDE 50 ML VIAL IV (10:56)
[2024-04-03] MEDS: SODIUM CHLORIDE 0.9% 10ML SYR (RAD ONLY) 10 ML IV (10:56)
[2024-04-03] MEDS: IOPAMIDOL-370 (76%);100ML BOTTLE 100 ML IV (10:56)
[2024-04-03 10:58] LABS: Basophils % 0.7 % (0.1-2.0); Eosinophils # 0.1 K/mm3 (0.0-0.4); Eosinophils % 1.3 % (0.1-12.0); Hematocrit 33.5 % (37.0-47.0); Hemoglobin 11.3 g/dL (12.2-16.2); Lymphocytes # 1.5 K/mm3 (0.7-4.5); Mean Corpuscular HGB Conc 33.8 g/dL (31.8-35.4); Mean Corpuscular Hemoglobin 32.9 pg (27.0-31.2); Mean Corpuscular Volume 97.4 fl (81-99); Mean Platelet Volume 8.4 fl (7.4-10.4); Monocytes # 0.4 K/mm3 (0.1-1.0); Monocytes % 6.7 % (1.7-9.3); Neutrophils # 4.3 K/mm3 (1.8-7.8); Neutrophils % 67.4 % (37.0-80.0); Platelet Count 512 K/mm3 (142-424); Red Blood Count 3.44 M/mm3 (4.20-5.40); Red Cell Distribution Width 15.7 % (11.5-17.5); White Blood Count 6.3 K/mm3 (4.8-10.8)
--- NOTE | 2024-04-03 11:10 | PC.NURSE ---
Rounded on pt. Pt advised my back is still hurting Dr. Walter notified. Call light remains within reach
[2024-04-03] MEDS: KETOROLAC 30MG/ML VIAL 15 MG IV (11:37)
[2024-04-03] MEDS: ACETAMINOPHEN 1,000MG/100ML VIAL 1000 MG IV (11:37)
[2024-04-03 13:49] LABS: Troponin I < 0.01 ng/ml (0.00-0.034)
== END 2024-04-03 14:42 | disposition home or self-care (01) ==
PROVIDERS: Emergency Provider Emergency Medicine; PCP Family Medicine
DX: R07.9 Chest pain, unspecified (principal); I11.9 Hypertensive heart disease without heart failure; E78.5 Hyperlipidemia, unspecified; Z95.5 Presence of coronary angioplasty implant and graft; I25.119 Atherosclerotic heart disease of native coronary artery with unspecified angina pectoris; K21.9 Gastro-esophageal reflux disease without esophagitis; E03.9 Hypothyroidism, unspecified; I16.0 Hypertensive urgency; M54.50 Low back pain, unspecified
CPT/HCPCS: 36415; 71045; 71275; 74174; 80053; 83605; 83690; 83880; 84484; 85025; 85610; 85730; 93005; 96374; 96375; 99285; J0131; Q9967

== ENCOUNTER 2024-04-05 03:54 | Emergency (ER) | payer MEDICARE, SELFPAY ==
[2024-04-05 03:55] VITALS: BP 170/82; PULSE 86; RESP 17; TEMP 36.4; O2SAT 100; BMI 32.9
--- NOTE | 2024-04-05 04:00 | ECG_ITS ---
APPROVED REPORT Exam: Resting ECG HR:83 bpm ECG Measurements Heart Rate 83 AXES SC 173 P 53 QRSd 92 QRS 18 QT 360 T 59 QTc 399 Conclusion SINUS RHYTHM LOW QRS VOLTAGE IN PRECORDIAL LEADS [QRS DEFLECTION < 1.0 mV IN CHEST LEADS] MODERATE ST DEPRESSION [0.05+ mV ST DEPRESSION] Electronically signed by : RODNEY BETTENCOURT, 04/10/2024 04:34:30
--- NOTE | 2024-04-05 04:21 | ED_ITS ---
Discharge Plan Disposition Patient Disposition: Home, Self-Care Prescriptions Prescriptions: New levofloxacin 750 mg tablet 750 mg PO DAILY 7 Days Qty: 7 0RF ondansetron HCl 4 mg tablet 4 mg PO Q8H PRN (Reason: nausea and vomiting) 5 Days Qty: 30 0RF No Action omeprazole 40 mg capsule,delayed release(DR/EC) 40 mg PO DAILY Patient Comments: TAKE 1 CAPSULE BY MOUTH ONCE DAILY cholecalciferol (vitamin D3) 50 mcg (2,000 unit) capsule 50 mcg PO DAILY Nurtec ODT 75 mg tablet,disintegrating 75 mg PO .qod 30 Days Qty: 15 11RF levothyroxine 100 mcg tablet PO DAILY Patient Comments: TAKE 1 TABLET BY MOUTH ONCE DAILY famotidine [Acid Chemical Handler (famotidine)] 20 mg tablet 40 mg PO HS Qty: 180 3RF losartan 100 mg tablet 50 mg PO DAILY atenolol 50 mg tablet 25 mg PO DAILY magnesium oxide 400 mg magnesium capsule 400 mg PO DAILY mecobalamin (vitamin B12) 1,000 mcg tablet,chewable 1,000 mcg PO DAILY metformin 500 mg tablet extended release 24 hr 500 mg PO DAILY Patient Comments: TAKE 1 TABLET BY MOUTH ONCE DAILY spironolactone 25 mg tablet 25 mg PO DAILY Qty: 30 4RF hydrochlorothiazide 12.5 mg tablet 12.5 mg PO DAILY Qty: 90 1RF folic acid 1 mg tablet 3 mg PO DAILY aspirin 81 mg Tablet,Chewable 81 mg PO DAILY isosorbide mononitrate 30 mg Tablet Extended Release 24 Hr 30 mg PO DAILY Qty: 30 0RF ranolazine 500 mg Tablet Extended Release 12 Hr 500 mg PO BID Qty: 60 0RF ropinirole 0.25 MG tablet 0.25 mg PO HS atorvastatin 40 MG tablet 40 mg PO HS Referrals Follow up/Referrals: Jamie Chahal MD [Primary Care Provider] - See instructions Activity Restrictions/Add. Instructions Additional Instructions/Restrictions: Please take antibiotics as prescribed for treatment of urinary tract infection. Please follow-up with your primary care provider. Please return to the emergency department if you develop any new or worsening symptoms or become concerned for your health. Clinical Impressions Clinical Impression: Pyelonephritis Instructions Patient Instructions: DI for Low Back Pain Discharge ED Provider: Shawn Olsen Adult [facility] General Chief complaint: Back Pain/Injury Stated complaint: chest and back pain Time Seen by Provider: 04/05/24 03:57 Mode of Arrival: Ambulatory Source of Information: Patient Limitations: No Limitations Description of Symptoms (Recalled from ER Triage Doc. by RN): Patient reports that she was seen on Friday for chest and back pain, and that the back pain has persisted and gotten worse tonight. She also states that she has left flank pain that seemed to develop while she was trying to sleep. Patient states that her chest pain came back about an hour ago and she took 4 81mg ASA and the pain has subsided in her chest. She describes the chest pain as substernal, and the back pain as across her lower back and to the left flank. History of Present Illness HPI narrative: 64-year-old female with history of coronary artery disease presents for persistent back pain. She was seen here on Friday and had CTA and full workup. She reports that she did have a brief episode of chest pain around 11 PM, approximately 5 hours prior to arrival. She has no chest pain at this time. She reports that she has left flank pain. It is worse with lying still, no recent trauma, no recent fever. Denies any urinary urgency or frequency. Related Data Home Medications Medication Instructions Recorded Confirmed ropinirole 0.25 mg tablet 0.25 mg PO HS Restless legs 01/08/18 03/15/24 syndrome atorvastatin 40 mg tablet 40 mg PO HS Cholesterol 06/23/20 03/15/24 atenolol 50 mg tablet 25 mg PO DAILY Hypertension 07/04/20 03/15/24 omeprazole 40 mg capsule,delayed 40 mg PO DAILY GERD 05/15/21 03/15/24 release magnesium oxide 400 mg PO DAILY Supplement 06/05/21 03/15/24 mecobalamin (vitamin B12) 1,000 1,000 mcg PO DAILY Supplement 06/05/21 03/15/24 mcg chewable tablet folic acid 1 mg tablet 3 mg PO DAILY Supplement 07/10/22 03/15/24 aspirin 81 mg chewable tablet 81 mg PO DAILY HEART HEALTH 07/11/22 03/15/24 metformin 500 mg tablet,extended 500 mg PO DAILY 02/13/23 03/15/24 release 24 hr levothyroxine 100 mcg tablet mcg PO DAILY 07/23/23 03/15/24 cholecalciferol (vitamin D3) 50 50 mcg PO DAILY 08/13/23 03/15/24 mcg (2,000 unit) capsule losartan 100 mg tablet 50 mg PO DAILY 03/15/24 03/15/24 Previous Rx's Medication Instructions Recorded spironolactone 25 mg tablet 25 mg PO DAILY . #30 tabs 07/03/22 isosorbide mononitrate 30 mg 30 mg PO DAILY #30 tabs 07/12/22 tablet,extended release 24 hr ranolazine 500 mg tablet,extended 500 mg PO BID #60 tabs 07/12/22 release,12 hr famotidine 20 mg tablet (Acid 40 mg (2 x 20 mg) PO HS Gerd 07/23/23 Chemical Handler (famotidine)) symptoms #180 tabs Nurtec ODT 75 mg disintegrating 75 mg PO .qod Migraine with aura 08/15/23 tablet (rimegepant) 30 days #15 tabs hydrochlorothiazide 12.5 mg tablet 12.5 mg PO DAILY #90 tabs 03/19/24 levofloxacin 750 mg tablet 750 mg PO DAILY 7 days #7 tabs 04/05/24 ondansetron HCl 4 mg tablet 4 mg PO Q8H PRN nausea and 04/05/24 vomiting 5 days #30 tabs Allergies Allergy/AdvReac Type Severity Reaction Status Date / Time dexamethasone [DEXAMETHASONE] Allergy Unknown Verified 03/15/24 14:32 triamcinolone [From KENALOG] Allergy Unknown Verified 03/15/24 14:29 [facility] Disclaimer: The information contained in this section may have been updated after the patient was seen, as this information can be updated by other users. Medical History Hyponatremia Thyroid Nodule Dysphagia History of left heart catheterization GERD (gastroesophageal reflux disease) Restless leg syndrome Migraine Allergies History of chest pain COVID-19 Hypotension Anemia Syncope Vasovagal syncope Sinus bradycardia HLD (hyperlipidemia) POTS (postural orthostatic tachycardia syndrome) Unstable angina Coronary artery disease History of syncope Hypothyroidism Hypertension Minor head injury without loss of consciousness Cholelithiasis Surgical History History of coronary artery stent placement H/O colonoscopy H/O: hysterectomy History of section Family History Other Coronary artery disease Family history of cancer Family history of diabetes mellitus type II Family history of hypertension Social History Smoking Status: Never smoker second hand exposure: No alcohol intake: never substance use type: denies use current occupational status: unemployed Travel in the last 8 weeks: None household members: spouse housing: house 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 current occupational exposures/hazards: No caffeine: Yes ROS Obtained: Yes All systems reviewed & no additional complaints except as documented Physical Exam General General appearance: alert and in no apparent distress Head Head exam: atraumatic and normocephalic Eye Eye exam: Present normal appearance, PERRL and EOMI ENT ENT exam: Present normal oropharynx and normal external ear exam Neck Neck exam: Present normal inspection and full ROM Chest Chest inspection: Present normal inspection and symmetric chest wall rise; Absent tenderness Respiratory Respiratory exam: Present normal lung sounds bilaterally; Absent respiratory distress Cardiovascular Cardiovascular exam: Present regular rate and normal rhythm Abdominal Exam Abdominal exam: Present soft; Absent distention, tenderness or guarding Extremities Exam Extremities exam: Present normal inspection; Absent edema or joint swelling Back Exam Back exam: Present normal inspection and CVA tenderness (L) Neurological Exam Neurological exam: Present alert and oriented X3; Absent motor sensory deficit Psychiatric Psychiatric exam: Present normal affect and normal mood Skin Skin exam: Present warm, dry and normal color Lymphatic Lymphatic Findings: no adenopathy Medical Decision Making Medical Records Medical records reviewed: Yes I reviewed the patient's medical records. Alexi Inquiry Pt receiving controlled substance: No Alexi was queried for this patient: No Vital Signs: 04/05/24 03:55 Temperature 97.6 F Temperature Source Oral Pulse Rate [Left Radial] 86 Respiratory Rate 17 Blood Pressure [Right Arm] 170/82 H Blood Pressure Mean [Right Arm] 111 Blood Pressure Source [Right Arm] Automatic Cuff Blood Pressure Position [Right Arm] Sitting 02 Sat by Pulse Oximetry 100 Oxygen Delivery Method Room Air Lab Data Lab results reviewed: Yes I reviewed the patient's lab results. Lab Results 04/05/24 04:07: WBC 7.8, RBC 3.49 L, Hgb 10.9 L, Hct 33.9 L, MCV 97.0, MCH 31.1, MCHC 32.0, RDW 15.7, Plt Count 509 H, MPV 7.6, Neut % (Auto) 77.2, Lymph % (Auto) 14.7, Rush % (Auto) 5.8, Eos % (Auto) 1.8, Baso % (Auto) 0.4, Neut # (Auto) 6.0, Lymph # (Auto) 1.2, Rush # (Auto) 0.5, Eos # (Auto) 0.1, Baso # (Auto) 0.0, Sodium 132 L, Potassium 4.4, Chloride 99, Carbon Dioxide 24, Anion Gap 13.4, BUN 20 H D, Creatinine 1.20 H D, Estimated Creat Clear 62, Estimated GFR 45 L, Est GFR ( Amer) 55 L D, Glucose 145 H, Calcium 9.4, Total Bilirubin 0.4, AST 28, ALT 19, Alkaline Phosphatase 96, Troponin I < 0.01, Total Protein 7.2, Albumin 4.2, Globulin 3.0, Albumin/Globulin Ratio 1.4 04/05/24 04:22: Urine Color Yellow, Urine Appearance Clear, Urine pH 5.5, Ur Specific [place] >= 1.030, Urine Protein Negative, Urine Glucose (UA) Negative, Urine Ketones Negative, Urine Blood Negative, Urine Nitrate Positive, Urine Bilirubin 1+ A, Urine Urobilinogen 0.2, Ur Leukocyte Esterase 1+ A, Urine RBC None, Urine WBC 5-10, Ur Squamous Epith Cells Occasional, Urine Bacteria 1+, Hyaline Casts Occasional 04/05/24 04:07 04/05/24 04:07 Orders (Tests/Meds): ED MEDICATIONS Discontinued Medications Generic Name Dose Route Start Last Admin Trade Name Enriqueq PRN Reason Stop Dose Admin Levofloxacin 750 mg 04/05/24 04:52 Levofloxacin 750 Mg Tablet PO 04/05/24 04:53 ONCE ONE Lidocaine 1 each 04/05/24 04:18 04/05/24 04:28 Lidocaine 5% Transdermal Patch TP 04/05/24 04:19 1 each ONCE ONE Administration Methocarbamol 500 mg 04/05/24 04:18 04/05/24 04:28 Methocarbamol 500mg Tablet PO 04/05/24 04:19 500 mg ONCE ONE Administration Ondansetron HCl 4 mg 04/05/24 05:01 04/05/24 05:03 Ondansetron 4mg/2ml Vial IV 04/05/24 05:02 4 mg ONCE ONE Administration ORDERS Category Date Time Status CBC w/Auto Diff [Complete Blood Count Auto Diff] Stat Lab 04/05/24 04:07 Completed CMP [Comprehensive Metabolic Panel] Stat Lab 04/05/24 04:07 Completed Troponin I Q3H Lab 04/05/24 04:07 Completed Troponin I Q3H Lab 04/05/24 07:30 Ordered UA [Urinalysis and Microscopic] Stat Lab 04/05/24 04:22 Completed Urine Culture Stat Micro 04/05/24 04:22 Received ECG Data Tracing #1: I reviewed this ECG and interpreted as documented below: Sinus rhythm, rate of 83, no concerning ST or T wave changes, normal intervals, ECG initial impression date: 04/05/24 ECG initial impression time: 04:01 Medical Decision Narrative: 64-year-old female with history of coronary artery disease, obesity, sleep apnea, hypertension hyperlipidemia presents with intermittent chest pain, worsening left CVA pain. History was obtained interactive discussion with patient, chart review. On arrival, patient is [afebrile, hemodynamically stable, satting appropriately, alert, oriented x4, GCS 15], moving all extremities spontaneously. Full physical exam performed and significant for left CVA tenderness. Differential includes but is not limited to ACS, PE, dissection, UTI, pyelonephritis, ureterolithiasis, musculoskeletal chest/back pain. Patient took full dose aspirin prior to arrival. Workup initiated including CBC CMP troponin UA EKG. I considered performing repeat CT imaging including CT angiogram, however, her symptoms do not appear consistent with aortic dissection or new PE or other emergent vascular pathology. I reviewed her CT imaging from less than 48 hours ago and shows no evidence of PE, aortic dissection, kidney stones or other emergent pathology. On re-evaluation, patient [remains afebrile, HD stable.] Laboratory workup independently interpreted by me and significant for findings consistent with UTI, 5-10 WBCs, positive nitrates, positive bacteria. No significant leukocytosis, mild thrombophilia, troponin minimally elevated from baseline at 1.2, stable hyponatremia. Initial troponin was undetectably low. 1 troponin will suffice given patient has not had chest pain for hours, has unremarkable EKG. Given patient history, exam and workup, patient's presentation most likely represents pyelonephritis given UTI and flank pain. Patient was initiated on Levaquin for treatment of pyelonephritis and discharged in stable condition with prescription for Levaquin and Zofran. Return precautions given. Procedures Risk/Benefits of Procedure(s) Were Explained: Yes Critical Care Critical Care Time Critical Care Time: No
[2024-04-05 04:26] LABS: Basophils % 0.4 % (0.1-2.0); Eosinophils # 0.1 K/mm3 (0.0-0.4); Eosinophils % 1.8 % (0.1-12.0); Hematocrit 33.9 % (37.0-47.0); Hemoglobin 10.9 g/dL (12.2-16.2); Lymphocytes # 1.2 K/mm3 (0.7-4.5); Lymphocytes % 14.7 % (10-50); Mean Corpuscular Hemoglobin 31.1 pg (27.0-31.2); Mean Platelet Volume 7.6 fl (7.4-10.4); Monocytes # 0.5 K/mm3 (0.1-1.0); Monocytes % 5.8 % (1.7-9.3); Neutrophils % 77.2 % (37.0-80.0); Platelet Count 509 K/mm3 (142-424); Red Blood Count 3.49 M/mm3 (4.20-5.40); Red Cell Distribution Width 15.7 % (11.5-17.5); White Blood Count 7.8 K/mm3 (4.8-10.8)
[2024-04-05 04:27] LABS: Microscopic, Urine URINE MICROSCOPIC (MICROSCOPIC)
[2024-04-05 04:28] LABS: Chloride 99 mmol/L (98-107); Potassium 4.4 mmoL/L (3.5-5.1); Sodium 132 mmol/L (136-145)
[2024-04-05] MEDS: LIDOCAINE 5% TRANSDERMAL PATCH 1 EACH TP (04:28)
[2024-04-05] MEDS: METHOCARBAMOL 500MG TABLET 500 MG PO (04:28)
[2024-04-05 04:31] LABS: Alanine Aminotransferase 19 U/L (12-78); Albumin Level 4.2 g/dl (3.5-5.0); Albumin/Globulin Ratio 1.4 (1.1-1.8); Alkaline Phosphatase 96 U/L (38-126); Anion Gap 13.4 mEq/L (5-15); Aspartate Amino Transferase 28 U/L (14-36); Bilirubin,Total 0.4 mg/dl (0.2-1.3); Blood Urea Nitrogen 20 mg/dl (7-17); Carbon Dioxide 24 mmol/L (22.0-30.0); Creatinine Clearance Estimated 62 mL/min (50-200); Estimated Glomerular Filt Rate 45 ml/min (>60); GFR (African American) 55 ML/MIN (>60); Total Protein,Serum 7.2 g/dl (6.3-8.2)
[2024-04-05 04:32] LABS: Calcium 9.4 mg/dl (8.4-10.2); Glucose 145 mg/dl (74-100)
[2024-04-05 04:40] LABS: Appearance,Urine CLEAR (Clear); Bilirubin,Urine 1+ (Negative); Blood, Urine Negative (Negative); Color,Urine YELLOW (Yellow); Glucose,Urine (UA) Negative (Negative); Ketones,Urine Negative (Negative); Leukocyte Esterase,Urine 1+ (Negative); Nitrate,Urine POSITIVE (Negative); PH,Urine 5.5 (5.0-8.5); Protein,Urine Negative (Negative); Specific Gravity, Urine >= 1.030 (1.005-1.030); Squamous Epithelial Cell,Urine Occasional #/hpf (0-5); Urobilinogen,Urine 0.2 EU/dl (0.2)
[2024-04-05 04:41] LABS: Bacteria,Urine 1+ /lpf; Hyaline Casts,Urine Occasional #/lpf (0)
[2024-04-05 04:43] LABS: Troponin I < 0.01 ng/ml (0.00-0.034)
--- NOTE | 2024-04-05 04:45 | PC.NURSE ---
patient assisted to bathroom
--- NOTE | 2024-04-05 05:00 | PC.NURSE ---
Patient had episode of emesis in restroom. Patient reports nausea started suddenly. Notified provider, orders received.
[2024-04-05] MEDS: ONDANSETRON 4MG/2ML VIAL 4 MG IV (05:03)
[2024-04-05] MEDS: levoFLOXacin 750 MG TABLET PO (05:19)
[2024-04-05 05:26] VITALS: BP 149/64; PULSE 79; RESP 11; TEMP 36.7; O2SAT 98
== END 2024-04-05 05:29 | disposition home or self-care (01) ==
PROVIDERS: Emergency Provider Emergency Medicine; PCP Family Medicine
DX: N10 Acute pyelonephritis (principal); B96.89 Other specified bacterial agents as the cause of diseases classified elsewhere; M54.59 Other low back pain; E87.1 Hypo-osmolality and hyponatremia; R07.9 Chest pain, unspecified; K21.9 Gastro-esophageal reflux disease without esophagitis; E78.5 Hyperlipidemia, unspecified; E03.9 Hypothyroidism, unspecified; I11.9 Hypertensive heart disease without heart failure; I25.119 Atherosclerotic heart disease of native coronary artery with unspecified angina pectoris; Z95.5 Presence of coronary angioplasty implant and graft
CPT/HCPCS: 80053; 81001; 84484; 85025; 87086; 93005; 96374; 99284; J2405

== ENCOUNTER 2024-04-06 09:51 | Observation (INO) | payer MEDICARE, SELFPAY ==
[2024-04-06] VITALS (7 sets, daily range): BP systolic 131–189; BP diastolic 53–76; PULSE 61–81; RESP 8–20; TEMP 36.6–36.9; O2SAT 96–100; BMI 33.8
--- NOTE | 2024-04-06 09:54 | CT_ITS ---
FINAL REPORT TECHNIQUE: NASCET technique utilized for stenosis evaluation. CLINICAL HISTORY: rght facila droop and extremity weakness, CP FINDINGS: There is dense coronary artery calcification. RIGHT CAROTID: There is mild vascular calcification at the right carotid bifurcation without significant stenosis. LEFT CAROTID: There is dense vascular calcification of the proximal left internal carotid artery with left less than 50% stenosis. VERTEBRALS: The vertebrals are patent. No significant stenosis is present. IMPRESSION: Carotid bifurcation calcification, left greater than right without significant stenosis. Reviewed, Interpreted and Dictated by Salinas Goodman MD Transcribed by Feli Lucio Authenticated and . [facility]
--- NOTE | 2024-04-06 09:54 | CT_ITS ---
FINAL REPORT TECHNIQUE: Axial CT images were performed through the head. Coronal reformatted images were submitted. This study was performed with techniques to keep radiation doses as low as reasonably achievable (ALARA). Individualized dose reduction techniques using automated exposure control or adjustment of mA and/or kV according to the patient's size were employed. CLINICAL HISTORY: rght facila droop and extremity weakness, CP stroke protocol FINDINGS: The ventricles are normal in size. There is no evidence of hemorrhage. There is no mass or edema identified. There is no abnormal extra-axial fluid seen. There is mild mucoperiosteal thickening in the right maxillary sinuses. IMPRESSION: No acute intracranial process. Reviewed, Interpreted and Dictated by Salinas Goodman MD Transcribed by Feli Lucio Authenticated and [facility]
--- NOTE | 2024-04-06 09:54 | CT_ITS ---
FINAL REPORT TECHNIQUE: thin section axial CT with and without IV contrast supplemented with multiplanar 3-D reconstruction of the head. This study was performed with techniques to keep radiation doses as low as reasonably achievable, (ALARA)individualized dose reduction techniques using automated exposure control or adjustment of mA and/or kV according to the patient's size were employed. CLINICAL HISTORY: rght facila droop and extremity weakness, CP Stroke alert FINDINGS: The cranial circulation is unremarkable. There is no significant stenosis, aneurysm or occlusion. IMPRESSION: No evidence of aneurysm or major branch occlusion. Reviewed, Interpreted and Dictated by Salinas Goodman MD Transcribed by Feli Lucio Authenticated and . [facility]
--- NOTE | 2024-04-06 09:54 | CT_ITS ---
FINAL REPORT TECHNIQUE: The patient was injected with IV contrast. Axial images were obtained through the chest in a PE protocol. 3-D reconstruction images were also performed. Individualized dose reduction techniques using automated exposure control or adjustment of the MA and/or KV according to patient's size were employed. CLINICAL HISTORY: rght facila droop and extremity weakness, CP FINDINGS: Mediastinal vasculature is adequately opacified. No pulmonary artery filling defects are identified to suggest PE. There is no aortic dissection. There is no axillary adenopathy. There is no hilar or mediastinal adenopathy. The heart size is normal. There is no pericardial or pleural effusion. No suspicious infiltrate or nodule is identified. IMPRESSION: No pulmonary embolus or dissection. Reviewed, Interpreted and Dictated by Salinas Goodman MD Transcribed by Feli Lucio Authenticated and [facility]
--- NOTE | 2024-04-06 09:54 | CT_ITS ---
FINAL REPORT TECHNIQUE: Pre-and postcontrast images of the abdomen and pelvis were performed by computed tomography. Extensive 3-D reconstruction images were performed. A CTA was performed. This study was performed with techniques to keep radiation doses as low as reasonably achievable (ALARA). Individualized dose reduction techniques using automated exposure control or adjustment of mA and/or kV according to the patient''s size were employed. CLINICAL HISTORY: rght facila droop and extremity weakness, CP FINDINGS: ABDOMEN/PELVIS: The liver parenchyma is homogeneous. The gallbladder is mildly distended with tiny stones in the dependent portion. The spleen, pancreas, adrenals, and kidneys are unremarkable. The appendix is normal. The urinary bladder is incompletely distended. There are moderate hypertrophic changes of degenerative disc disease in the lower lumbar spine. High-grade left neural foraminal narrowing is seen at L5-S1. CTA: The abdominal aorta is proper caliber. The SMA, celiac axis, and COLIN are patent. There is no significant stenosis or calcification. The renal arteries are patent bilaterally. IMPRESSION: No evidence of renal vascular hypertension or significant renal artery stenosis. Tiny gallstones in the dependent portion of the gallbladder. Reviewed, Interpreted and Dictated by Salinas Goodman MD Transcribed by Feli Lucio Authenticated and [facility]
--- NOTE | 2024-04-06 09:55 | PC.NURSE ---
pt to ct scan
[2024-04-06 10:04] LABS: Basophils % 0.4 % (0.1-2.0); Eosinophils % 0.5 % (0.1-12.0); Hematocrit 34.1 % (37.0-47.0); Lymphocytes # 0.9 K/mm3 (0.7-4.5); Lymphocytes % 14.7 % (10-50); Mean Corpuscular HGB Conc 32.2 g/dL (31.8-35.4); Mean Corpuscular Hemoglobin 30.8 pg (27.0-31.2); Mean Corpuscular Volume 95.8 fl (81-99); Mean Platelet Volume 7.4 fl (7.4-10.4); Monocytes # 0.3 K/mm3 (0.1-1.0); Monocytes % 4.9 % (1.7-9.3); Neutrophils # 4.7 K/mm3 (1.8-7.8); Neutrophils % 79.5 % (37.0-80.0); Platelet Count 482 K/mm3 (142-424); Red Blood Count 3.55 M/mm3 (4.20-5.40); Red Cell Distribution Width 15.3 % (11.5-17.5); White Blood Count 5.9 K/mm3 (4.8-10.8)
[2024-04-06 10:13] LABS: Alanine Aminotransferase 27 U/L (12-78); Albumin Level 4.2 g/dl (3.5-5.0); Albumin/Globulin Ratio 1.5 (1.1-1.8); Alkaline Phosphatase 79 U/L (38-126); Aspartate Amino Transferase 32 U/L (14-36); Bilirubin,Total 0.6 mg/dl (0.2-1.3); Blood Urea Nitrogen 15 mg/dl (7-17); Calcium 9.2 mg/dl (8.4-10.2); Carbon Dioxide 23 mmol/L (22.0-30.0); Chloride 91 mmol/L (98-107); Estimated Glomerular Filt Rate 50 ml/min (>60); GFR (African American) 61 ML/MIN (>60); Globulin 2.8 g/dL (1.3-3.2); Glucose 184 mg/dl (74-100); Sodium 127 mmol/L (136-145)
[2024-04-06] MEDS: IOPAMIDOL-370 (76%);100ML BOTTLE 200 ML IV (10:13)
[2024-04-06] MEDS: SODIUM CHLORIDE 0.9% 10ML SYR (RAD ONLY) 10 ML IV (10:13)
[2024-04-06] MEDS: ASPIRIN 81MG CHEWABLE TABLET 324 MG PO (10:13)
[2024-04-06] MEDS: 0.9 % SODIUM CHLORIDE 50 ML VIAL 100 ML IV (10:13)
--- NOTE | 2024-04-06 10:15 | ECG_ITS ---
APPROVED REPORT Exam: Resting ECG HR:69 bpm ECG Measurements Heart Rate 69 AXES AZ 191 P 72 QRSd 96 QRS 35 QT 403 T 49 QTc 421 Conclusion SINUS RHYTHM Electronically signed by : MAGUE MARIA, 04/08/2024 15:46:56
--- NOTE | 2024-04-06 10:21 | HMH.EDGENADL ---
Discharge Plan Disposition Patient Disposition: Admitted Chief Complaint: Neuro Symptoms/Deficit Clinical Impressions Clinical Impression: Acute CVA (cerebrovascular accident) Discharge ED Provider: Alejandro Walter General Adult HPI General Chief complaint: Neuro Symptoms/Deficit Stated complaint: possible stroke Time Seen by Provider: 04/06/24 09:53 History of Present Illness HPI narrative: Please note that above description of symptoms, in this electronic medical record under categorization of recalled from ER triage doctor by RN are reflective of an initial nursing assessment, however, is not reflective of my full history and physical exam that was personally taken and clarified. Consequentially, this preceding description of symptoms, which may include the patient's categorized chief complaint in the EMR, do not reflect my personal clinical impression, and the ultimate description of history of present illness and patient stated complaints should be deferred to this section of the note. Unless stated otherwise or congruent with this section of the note, additional signs, symptoms, or incongruence should be interpreted as inaccurate with my clinical impression. Related Data Home Medications Medication Instructions Recorded Confirmed ropinirole 0.25 mg tablet 0.25 mg PO HS Restless legs 01/08/18 03/15/24 syndrome atorvastatin 40 mg tablet 40 mg PO HS Cholesterol 06/23/20 03/15/24 atenolol 50 mg tablet 25 mg PO DAILY Hypertension 07/04/20 03/15/24 omeprazole 40 mg capsule,delayed 40 mg PO DAILY GERD 05/15/21 03/15/24 release magnesium oxide 400 mg PO DAILY Supplement 06/05/21 03/15/24 mecobalamin (vitamin B12) 1,000 1,000 mcg PO DAILY Supplement 06/05/21 03/15/24 mcg chewable tablet folic acid 1 mg tablet 3 mg PO DAILY Supplement 07/10/22 03/15/24 aspirin 81 mg chewable tablet 81 mg PO DAILY HEART HEALTH 07/11/22 03/15/24 metformin 500 mg tablet,extended 500 mg PO DAILY 02/13/23 03/15/24 release 24 hr levothyroxine 100 mcg tablet mcg PO DAILY 07/23/23 03/15/24 cholecalciferol (vitamin D3) 50 50 mcg PO DAILY 08/13/23 03/15/24 mcg (2,000 unit) capsule losartan 100 mg tablet 50 mg PO DAILY 03/15/24 03/15/24 Previous Rx's Medication Instructions Recorded spironolactone 25 mg tablet 25 mg PO DAILY . #30 tabs 07/03/22 isosorbide mononitrate 30 mg 30 mg PO DAILY #30 tabs 07/12/22 tablet,extended release 24 hr ranolazine 500 mg tablet,extended 500 mg PO BID #60 tabs 07/12/22 release,12 hr famotidine 20 mg tablet (Acid 40 mg (2 x 20 mg) PO HS Gerd 07/23/23 [facility] (famotidine)) symptoms #180 tabs Nurtec ODT 75 mg disintegrating 75 mg PO .qod Migraine with aura 08/15/23 tablet (rimegepant) 30 days #15 tabs hydrochlorothiazide 12.5 mg tablet 12.5 mg PO DAILY #90 tabs 03/19/24 levofloxacin 750 mg tablet 750 mg PO DAILY 7 days #7 tabs 04/05/24 ondansetron HCl 4 mg tablet 4 mg PO Q8H PRN nausea and 04/05/24 vomiting 5 days #30 tabs Allergies Allergy/AdvReac Type Severity Reaction Status Date / Time dexamethasone [DEXAMETHASONE] Allergy Unknown Verified 03/15/24 14:32 triamcinolone [From KENALOG] Allergy Unknown Verified 03/15/24 14:29 [facility] Disclaimer: The information contained in this section may have been updated after the patient was seen, as this information can be updated by other users. Medical History Hyponatremia Thyroid Nodule Dysphagia History of left heart catheterization GERD (gastroesophageal reflux disease) Restless leg syndrome Migraine Allergies History of chest pain COVID-19 Hypotension Anemia Syncope Vasovagal syncope Sinus bradycardia HLD (hyperlipidemia) POTS (postural orthostatic tachycardia syndrome) Unstable angina Coronary artery disease History of syncope Hypothyroidism Hypertension Minor head injury without loss of consciousness Cholelithiasis Surgical History History of coronary artery stent placement H/O colonoscopy H/O: hysterectomy History of section Family History Other Coronary artery disease Family history of cancer Family history of diabetes mellitus type II Family history of hypertension Social History Smoking Status: Former smoker second hand exposure: No alcohol intake: never substance use type: denies use current occupational status: unemployed Travel in the last 8 weeks: None household members: spouse housing: house 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 current occupational exposures/hazards: No caffeine: Yes ROS Obtained: Yes All systems reviewed & no additional complaints except as documented Physical Exam General General appearance: alert and in no apparent distress Head Head exam: atraumatic and normocephalic Eye Eye exam: Present PERRL, EOMI and other (Right-sided facial weakness, incomplete closure of right eye) ENT ENT exam: Present mucous membranes moist and other (Right-sided facial droop and nasolabial plan) Neck Neck exam: Present normal inspection, full ROM and trachea midline Respiratory Respiratory exam: Present normal lung sounds bilaterally; Absent respiratory distress, wheezes, stridor, accessory muscle use or prolonged expiratory phase Cardiovascular Cardiovascular exam: Present regular rate and normal rhythm; Absent systolic murmur or diastolic murmur Abdominal Exam Abdominal exam: Present soft; Absent distention, tenderness, guarding, rebound or rigidity Extremities Exam Extremities exam: Absent edema Neurological Exam Neurological exam: Present alert, oriented X3, CN II-XII intact, normal gait and other (NIHSS 5); Absent motor sensory deficit Skin Skin exam: Present warm and dry; Absent diaphoresis or erythema Medical Decision Making Medical Records Medical records reviewed: Yes I reviewed the patient's medical records. lAexi Inquiry Pt receiving controlled substance: No Alexi was queried for this patient: No Vital Signs: 04/06/24 10:05 04/06/24 10:30 04/06/24 11:01 Temperature 98.3 F Temperature Source Oral Pulse Rate 67 61 Pulse Rate [Left Radial] 81 Respiratory Rate 20 8 L 13 Blood Pressure 166/71 H 186/72 H Blood Pressure [Right Arm] 153/66 H Blood Pressure Mean [Right Arm] 95 02 Sat by Pulse Oximetry 97 100 100 Oxygen Delivery Method Room Air 04/06/24 11:31 Temperature Temperature Source Pulse Rate 65 Pulse Rate [Left Radial] Respiratory Rate 11 L Blood Pressure 189/76 H Blood Pressure [Right Arm] Blood Pressure Mean [Right Arm] 02 Sat by Pulse Oximetry 100 Oxygen Delivery Method Lab Data Lab Results 04/06/24 09:54: WBC 5.9, RBC 3.55 L, Hgb 11.0 L, Hct 34.1 L, MCV 95.8, MCH 30.8, MCHC 32.2, RDW 15.3, Plt Count 482 H, MPV 7.4, Neut % (Auto) 79.5, Lymph % (Auto) 14.7, [place] % (Auto) 4.9, Eos % (Auto) 0.5, Baso % (Auto) 0.4, Neut # (Auto) 4.7, Lymph # (Auto) 0.9, [place] # (Auto) 0.3, Eos # (Auto) 0.0, Baso # (Auto) 0.0, Sodium 127 L, Potassium 4.0, Chloride 91 L, Carbon Dioxide 23, Anion Gap 17.0 H, BUN 15, Creatinine 1.10 H, Estimated GFR 50 L, Est GFR ( Amer) 61, Glucose 184 H, Calcium 9.2, Total Bilirubin 0.6, AST 32, ALT 27 D, Alkaline Phosphatase 79, Troponin I < 0.01, NT-Pro-B Natriuret Pep 782 H, Total Protein 7.0, Albumin 4.2, Globulin 2.8, Albumin/Globulin Ratio 1.5 04/06/24 11:50: Urine Color Yellow, Urine Appearance Clear, Urine pH 6.5, Ur Specific [place] <= 1.005, Urine Protein Negative, Urine Glucose (UA) Negative, Urine Ketones Negative, Urine Blood Negative, Urine Nitrate Negative, Urine Bilirubin Negative, Urine Urobilinogen 0.2, Ur Leukocyte Esterase Negative 04/06/24 09:54 04/06/24 09:54 Orders (Tests/Meds): ED MEDICATIONS Generic Name Dose Route Start Last Admin Trade Name Freq PRN Reason Stop Dose Admin Sodium Chloride 1,000 mls @ 50 mls/hr 04/06/24 12:15 Sod Chlor 0.9% 1000ml Bag IV 05/06/24 12:14 .Q20H KIRAN Sodium Chloride 10 ml 04/06/24 10:12 04/06/24 10:13 Sodium Chloride 0.9% 10ml Syr (Rad Only) IV 05/06/24 10:11 10 ml NEEDED PRN Administration Maintain IV Site Discontinued Medications Generic Name Dose Route Start Last Admin Trade Name Freq PRN Reason Stop Dose Admin Aspirin 324 mg 04/06/24 09:53 04/06/24 10:13 Aspirin 81mg Chewable Tablet PO 04/06/24 09:54 324 mg ONCE ONE Administration Iopamidol 200 ml 04/06/24 10:12 04/06/24 10:13 Iopamidol-370 (76%);100ml Bottle IV 04/06/24 10:13 200 ml ONCE ONE Administration Sodium Chloride 100 ml 04/06/24 10:12 04/06/24 10:13 0.9 % Sodium Chloride 50 Ml Vial IV 04/06/24 10:13 100 ml ONCE ONE Administration ORDERS Category Date Time Status CT angio abdomen pelvis Stat Cat Scan 04/06/24 09:[address] angio head Stat Cat Scan 04/06/24 09:[address] angio neck Stat Cat Scan 04/06/24 09:[address] head/brain wo con Stat Cat Scan 04/06/24 09:54 Taken CTA Chest [CT angio chest - dissection] Stat Cat Scan 04/06/24 09:54 Completed Orbit XR left [XR orbit bilateral min 4V] Stat Exams 04/06/24 12:10 Ordered BNP [NT Pro Brain Natriuretic Pep.] Stat Lab 04/06/24 09:54 Completed Complete Blood Count Auto Diff Stat Lab 04/06/24 09:54 Completed Comprehensive Metabolic Panel Stat Lab 04/06/24 09:54 Completed Lactic Acid Stat Lab 04/06/24 09:54 Ordered Troponin I Q3H Lab 04/06/24 13:00 Ordered Troponin I Q3H Lab 04/06/24 16:00 Ordered Troponin I Stat Lab 04/06/24 09:54 Completed UA [Urinalysis and Microscopic] Stat Lab 04/06/24 11:50 Results Medical Decision Narrative: 63-year-old with hypertension, hyperlipidemia, CAD, carotid artery stenosis, diabetes, on daily aspirin and no other anticoagulation presenting with weakness. Patient was here in the hospital visiting family member. Patient states that she went to bed last night, felt okay. Today, woke up, did not feel well, but had no specific symptoms. Denies chest pain, shortness of breath, pain anywhere, nausea or vomiting, but a staff member know she had right-sided facial droop. On further provocative testing, concern for right-sided deficits, so sent down to the emergency department for further evaluation. History was obtained via conversation with patient. On arrival, patient hemodynamically stable, alert, oriented x4, appropriate, GCS 15, moving all extremities spontaneously, pupils equal and reactive to light. Full physical exam performed and significant for patient has difficulty closing right eye, right-sided facial droop sparing forehead. Right upper extremity weakness without drift, right lower extremity weakness and drift with total NIHSS 5. Other provocative testing negative. Cardiopulmonary exam within normal limits, no evidence of murmurs, gallops, rubs, pulses equal and symmetric in bilateral upper and lower extremities. Differential includes embolic stroke, thrombotic stroke, dissection, metabolic abnormality, symptomatic carotid stenosis, dehydration, Andino's palsy, other peripheral neuropathy, infectious, among others. Patient was given full dose aspirin for symptomatic management and correction of underlying abnormalities. Workup independently interpreted and significant for nonactionable CBC or chemistry. Creatinine appears to be stable at 1.1. Negative troponin, BNP nonactionable. Urinalysis nonactionable with left. CT head without acute intracranial hemorrhage, CTA chest, abdomen, pelvis, head and neck without acute dissection, vascular abnormality, large vessel occlusion, or other abnormality. See radiology read for full review of final results. Independent interpretation of EKG shows sinus rhythm 69 beats a minute no ST or T wave changes concerning for acute ischemia. VA 191, QRS 96, QTc 421. [place] normal. On reevaluation, patient's right upper extremity symptoms have largely resolved, still having right-sided facial droop, right lower extremity weakness. Patient's primary care provider was contacted and case was discussed at length, patient to be admitted for medical optimization, MRI given NIH 4 on repeat. Neurology stroke team at [facility] was contacted and case was discussed at length, images were reviewed with them over the phone, they did not recommend any acute intervention. Given patient presentation, workup, history, this most likely represents TIA versus CVA. Because patient high risk for clinical decompensation, deemed appropriate for inpatient admission. Results were relayed to patient who voiced understanding and patient was agreeable to inpatient admission and management. Patient was admitted to the hospital for further definitive management. Creative Consultant disclaimer Much of this encounter note is an electronic waste disposal plant operator spoken language to printed text. Electronic waste disposal plant operator of the spoken language may permit errors. Although I have reviewed the note, some errors may still exist. Critical Care Critical Care Time Critical Care Time: Yes (neuro) Attestation: On 04/06/24, the high probability of a clinically significant, sudden or life threatening deterioration of the following system(s) required my full and direct attention, intervention and personal management. The time I documented below is in addition to time spent performing reported procedures but includes the following listed in this critical care notation. Total Time Total Critical Care Time: 60
[2024-04-06 10:22] LABS: NT Pro Brain Natriuretic Pep. 782 pg/mL (0-125)
[2024-04-06 10:26] LABS: Troponin I < 0.01 ng/ml (0.00-0.034)
--- NOTE | 2024-04-06 11:35 | PC.NURSE ---
Called [facility] to [facility] to speak to about this pt. Advised they would call us back
--- NOTE | 2024-04-06 11:49 | PC.NURSE ---
called back and is speaking with Dr Walter at this time
[2024-04-06 11:54] LABS: Microscopic, Urine URINE MICROSCOPIC (MICROSCOPIC)
[2024-04-06 11:55] LABS: Appearance,Urine CLEAR (Clear); Bilirubin,Urine Negative (Negative); Blood, Urine Negative (Negative); Color,Urine YELLOW (Yellow); Glucose,Urine (UA) Negative (Negative); Ketones,Urine Negative (Negative); Leukocyte Esterase,Urine Negative (Negative); Nitrate,Urine Negative (Negative); PH,Urine 6.5 (5.0-8.5); Protein,Urine Negative (Negative); Specific Gravity, Urine <= 1.005 (1.005-1.030); Urobilinogen,Urine 0.2 EU/dl (0.2)
--- NOTE | 2024-04-06 11:59 | PC.NURSE ---
electronics maintenance technician paged at this time
--- NOTE | 2024-04-06 12:10 | XR_ITS ---
FINAL REPORT CLINICAL HISTORY: MRI clearance COMPARISON: none FINDINGS: ORBITS Look up and look down views were obtained. No fracture is identified. The sinuses are clear. No radiopaque foreign body is identified. IMPRESSION: No evidence of radiopaque foreign body. Reviewed, Interpreted and Dictated by Salinas Goodman MD Transcribed by Nelly Luna Authenticated and [facility]
--- NOTE | 2024-04-06 12:27 | PC.NURSE ---
Laisha from [facility] called and asked for pre-auth/approval through her insurance. I called Care Management and per Celia, pt does not need a pre-auth prior to MRI. Celia states she will call Laisha in [facility]
--- NOTE | 2024-04-06 12:41 | PC.NURSE ---
Report given to Marcia at this time
[2024-04-06 12:45] LABS: Squamous Epithelial Cell,Urine Occasional #/hpf (0-5); WBC,Urine Occasional #/hpf (0-3)
[2024-04-06 12:46] LABS: Bacteria,Urine Trace /lpf
[2024-04-06 12:49] LABS: Lactic Acid 1.8 mmol/L (0.7-2.1)
--- NOTE | 2024-04-06 13:10 | MR_ITS ---
FINAL REPORT CLINICAL HISTORY: right sided deficits, right sided facial droop COMPARISON: None FINDINGS: Multi planar MR imaging was obtained through the brain without contrast. The midline structures appear intact. There is no evidence of Chiari malformation. On T2 and flair axial images there are subtle scattered foci of abnormal signal in the deep white matter, consistent in this age group with mild changes of ischemic microvascular disease. On diffusion-weighted images there is no evidence of restricted diffusion. The visualized paranasal sinuses demonstrate right maxillary chronic mucoperiosteal thickening without air-fluid levels. The seventh and eighth nerve root complexes are intact. IMPRESSION: Mild changes of ischemic microvascular disease without evidence of restricted diffusion to suggest an acute infarct. Right maxillary chronic mucoperiosteal thickening. Reviewed, Interpreted and Dictated by Salinas Goodman MD Transcribed by Marita Schwab Authenticated and [facility]
--- NOTE | 2024-04-06 13:19 | P.PN_ITS ---
Subjective *Date: 04/06/24 *Time: 13:19 Interval history: Mrs. Giles is a 64 year old female patient of [facility] who was visiting a patient in the hospital earlier today and was noted to have right sided facial droop by the nursing staff. Patient was taken down to the ER for an evaluation. Initial head CT without contrast showed no CVA, stroke service at was consulted and recommended admission to [facility] and for patient to have an MRI. Medical Exam Vital signs and Labs for Last 24 Hours: Vital Signs Temp Pulse Pulse Resp BP BP Pulse Ox 04/06/24 12:42 97.8 F 65 18 152/53 H 04/06/24 11:31 65 11 L 189/76 H 100 04/06/24 11:01 61 13 186/72 H 100 04/06/24 10:30 67 8 L 166/71 H 100 04/06/24 10:05 98.3 F 81 20 153/66 H 97 O2 Del Method 04/06/24 12:42 Room Air 04/06/24 11:31 04/06/24 11:01 04/06/24 10:30 04/06/24 10:05 Room Air Intake and Output 04/05/24 04/06/24 04/06/24 23:59 07:59 15:59 Other: Weight 185 lb Patient Weight 04/06/24 23:59 Weight 185 lb Laboratory Results - last 24 hr 04/06/24 09:54: WBC 5.9, RBC 3.55 L, Hgb 11.0 L, Hct 34.1 L, MCV 95.8, MCH 30.8, MCHC 32.2, RDW 15.3, Plt Count 482 H, MPV 7.4, Neut % (Auto) 79.5, Lymph % (Auto) 14.7, [place] % (Auto) 4.9, Eos % (Auto) 0.5, Baso % (Auto) 0.4, Neut # (Auto) 4.7, Lymph # (Auto) 0.9, [place] # (Auto) 0.3, Eos # (Auto) 0.0, Baso # (Auto) 0.0, Sodium 127 L, Potassium 4.0, Chloride 91 L, Carbon Dioxide 23, Anion Gap 17.0 H, BUN 15, Creatinine 1.10 H, Estimated GFR 50 L, Est GFR ( Amer) 61, Glucose 184 H, Calcium 9.2, Total Bilirubin 0.6, AST 32, ALT 27 D, Alkaline Phosphatase 79, Troponin I < 0.01, NT-Pro-B Natriuret Pep 782 H, Total Protein 7.0, Albumin 4.2, Globulin 2.8, Albumin/Globulin Ratio 1.5 04/06/24 11:50: Urine Color Yellow, Urine Appearance Clear, Urine pH 6.5, Ur Specific [place] <= 1.005, Urine Protein Negative, Urine Glucose (UA) Negative, Urine Ketones Negative, Urine Blood Negative, Urine Nitrate Negative, Urine Bilirubin Negative, Urine Urobilinogen 0.2, Ur Leukocyte Esterase Negative, Urine RBC None, Urine WBC Occasional, Ur Squamous Epith Cells Occasional, Urine Bacteria Trace 04/06/24 12:21: Lactate 1.8 I & O for Labs for Last 24 Hours: Intake & Output 04/03/24 04/04/24 04/05/24 04/06/24 23:59 23:59 23:59 23:59 Weight 185 lb Constitutional: Present no acute distress Respiratory: Present normal respiratory effort Cardiac: Present Reg Rate and Rhythm GI: Present normal bowel sounds; Absent tenderness Extremities: Present normal inspection and full ROM Skin: Present intact; Absent erythema Neuro: Present Sensory Function Intact, alert, awake and moves all extremities Comment:: right sided facial droop Assessment and Plan *Assessment and plan (1) Acute CVA (cerebrovascular accident): Status: Acute Category: Medical Code(s): I63.9 - Cerebral infarction, unspecified (2) CAD (coronary artery disease): Status: Chronic Category: Medical Code(s): I25.10 - Atherosclerotic heart disease of [place] coronary artery without angina pectoris (3) Hypertension: Status: Chronic Qualifiers: Hypertension type: essential hypertension Qualified Code(s): I10 - Essential (primary) hypertension Category: Medical Code(s): I10 - Essential (primary) hypertension (4) Hypothyroidism: Status: Chronic Qualifiers: Hypothyroidism type: unspecified Qualified Code(s): E03.9 - Hypothyroidism, unspecified Category: Medical Code(s): E03.9 - Hypothyroidism, unspecified (5) HLD (hyperlipidemia): Status: Chronic Qualifiers: Hyperlipidemia type: mixed hyperlipidemia Qualified Code(s): E78.2 - Mixed hyperlipidemia Category: Medical Code(s): E78.5 - Hyperlipidemia, unspecified (6) History of coronary artery stent placement: Status: Acute Category: Surgical Code(s): Z95.5 - Presence of coronary angioplasty implant and graft (7) Anemia: Status: Acute Category: Medical Code(s): D64.9 - Anemia, unspecified (8) Renal insufficiency: Status: Acute Category: Medical Code(s): N28.9 - Disorder of kidney and ureter, unspecified Plan Patient to have MRI and be admitted to [facility].
--- NOTE | 2024-04-06 14:18 | PC.NURSE ---
arrived by w/c from MRI
[2024-04-06] MEDS: 0.9 % SODIUM CHLORIDE 1000ML 1,000 ML 50 ML IV (14:40)
[2024-04-06 15:16] LABS: Troponin I < 0.01 ng/ml (0.00-0.034)
[2024-04-06 17:46] LABS: Troponin I < 0.01 ng/ml (0.00-0.034)
--- NOTE | 2024-04-06 18:17 | PC.NURSE ---
Patient alert and oriented x4 this shift. Tolerating room air well. NSR on telemetry initial strip. Ambulated to bathroom independently throughout shift. +1 pitting edema noted in bilateral lower extremities. No complaints this shift. Call light within reach.
[2024-04-06] MEDS: FAMOTIDINE 20MG TABLET 40 MG PO (21:51)
[2024-04-06] MEDS: ATORVASTATIN 40MG TABLET 40 MG PO (21:51)
[2024-04-06] MEDS: ROPINIROLE HCL 0.25 MG TABLET PO (23:32)
[2024-04-06] MEDS: ACETAMINOPHEN 325MG TAB 650 MG PO (23:32)
[2024-04-07] VITALS: BP 145/49; PULSE 65; PULSE 67; RESP 17; TEMP 36.6; O2SAT 99
[2024-04-07] MEDS: ONDANSETRON 4MG/2ML VIAL 4 MG IV (01:40)
[2024-04-07 04:00] VITALS: BP 155/58; PULSE 67; PULSE 76; RESP 17; TEMP 36.4; O2SAT 96; BMI 34.0
[2024-04-07] MEDS: IBUPROFEN 400 MG TABLET 800 MG PO (04:30)
[2024-04-07] MEDS: levoFLOXacin 750 MG TABLET PO (04:30)
[2024-04-07] MEDS: ACETAMINOPHEN 325MG TAB 650 MG PO (06:42)
[2024-04-07 06:53] LABS: MANUAL DIFFERENTIAL MANUAL DIFFERENTIAL (MANUAL DIFF)
[2024-04-07 06:58] LABS: Basophils % 0.3 % (0.1-2.0); Eosinophils # 0.1 K/mm3 (0.0-0.4); Mean Corpuscular HGB Conc 32.4 g/dL (31.8-35.4); Mean Corpuscular Hemoglobin 30.7 pg (27.0-31.2); Mean Corpuscular Volume 94.6 fl (81-99); Monocytes # 0.4 K/mm3 (0.1-1.0); Monocytes % 7.3 % (1.7-9.3); Neutrophils # 4.1 K/mm3 (1.8-7.8); Neutrophils % 73.3 % (37.0-80.0); Platelet Count 442 K/mm3 (142-424); Red Blood Count 3.59 M/mm3 (4.20-5.40); Red Cell Distribution Width 15.6 % (11.5-17.5); White Blood Count 5.6 K/mm3 (4.8-10.8)
[2024-04-07 07:12] LABS: Alanine Aminotransferase 17 U/L (12-78); Albumin Level 3.7 g/dl (3.5-5.0); Albumin/Globulin Ratio 1.3 (1.1-1.8); Alkaline Phosphatase 77 U/L (38-126); Anion Gap 12.4 mEq/L (5-15); Aspartate Amino Transferase 28 U/L (14-36); Bilirubin,Total 0.4 mg/dl (0.2-1.3); Blood Urea Nitrogen 12 mg/dl (7-17); Carbon Dioxide 25 mmol/L (22.0-30.0); Chloride 94 mmol/L (98-107); Creatinine Clearance Estimated 76 mL/min (50-200); Estimated Glomerular Filt Rate 63 ml/min (>60); GFR (African American) 77 ML/MIN (>60); Globulin 2.8 g/dL (1.3-3.2); Glucose 121 mg/dl (74-100); Potassium 4.4 mmoL/L (3.5-5.1); Sodium 127 mmol/L (136-145); Total Protein,Serum 6.5 g/dl (6.3-8.2)
[2024-04-07] MEDS: LEVOTHYROXINE 100MCG (0.1MG) TAB 100 MCG PO (07:47)
[2024-04-07 08:00] VITALS: BP 131/67; PULSE 70; PULSE 71; RESP 18; TEMP 36.9; O2SAT 96
[2024-04-07] MEDS: RANOLAZINE 500MG ER TABLET 500 MG PO (08:20)
--- NOTE | 2024-04-07 08:25 | P.HPDS_ITS ---
General Admission date:: 04/06/24 Discharge date: 04/07/24 *Admission Date: 04/06/24 *Chief complaint: Facial droop *History of present illness: Mrs. Giles is a 64 year old female patient of [facility] who came to [facility] yesterday to visit a patient and was found to have a right facial droop by the nursing staff. She was taken to the ER for evaluation of a possible stroke. She states that this is her third ER visit this week. The first was for chest pain, the second for a UTI and now for facial droop. ER note reviewed, initial CT heat was negative, [facility] stroke team was consulted an recommend admission for MRI and further evaluation. [facility] Disclaimer: The information contained in this section may have been updated after the patient was seen, as this information can be updated by other users. Medical History (Updated 04/07/24 @ 08:34 by Jamie Chahal MD) Anemia Hyponatremia Thyroid Nodule Dysphagia History of left heart catheterization GERD (gastroesophageal reflux disease) Restless leg syndrome Migraine Allergies History of chest pain COVID-19 Hypotension Syncope Vasovagal syncope Sinus bradycardia HLD (hyperlipidemia) POTS (postural orthostatic tachycardia syndrome) Unstable angina Coronary artery disease History of syncope Hypothyroidism Hypertension Minor head injury without loss of consciousness Cholelithiasis Surgical History History of coronary artery stent placement H/O colonoscopy H/O: hysterectomy History of section Family History Family history of cancer Coronary artery disease Family history of hypertension Family history of diabetes mellitus type II Social History Smoking Status: Former smoker second hand exposure: No alcohol intake: never substance use type: denies use current occupational status: unemployed Travel in the last 8 weeks: None household members: spouse housing: house 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 current occupational exposures/hazards: No caffeine: Yes Review of Systems Constitutional Constitutional: Denies chills and Denies fever(s) *Cardiovascular Cardiovascular: Denies chest pain *Respiratory Respiratory: Denies cough *Gastrointestinal Gastrointestinal: Denies abdominal pain *Genitourinary Genitourinary: Reports difficulty voiding *Musculoskeletal Musculoskeletal: Reports back pain *Neurologic Neurologic: Denies tremor(s) Exam Data for Last 24 hours Vital signs and Labs for Last 24 Hours: Temp Pulse Resp BP Pulse Ox O2 Del Method 97.6 F 76 17 155/58 H 96 Room Air 04/07/24 04:00 04/07/24 04:00 04/07/24 04:00 04/07/24 04:00 04/07/24 04:00 04/07/24 07:50 Laboratory Results - last 24 hr 04/06/24 09:54: WBC 5.9, RBC 3.55 L, Hgb 11.0 L, Hct 34.1 L, MCV 95.8, MCH 30.8, MCHC 32.2, RDW 15.3, Plt Count 482 H, MPV 7.4, Neut % (Auto) 79.5, Lymph % (Auto) 14.7, [place] % (Auto) 4.9, Eos % (Auto) 0.5, Baso % (Auto) 0.4, Neut # (Auto) 4.7, Lymph # (Auto) 0.9, [place] # (Auto) 0.3, Eos # (Auto) 0.0, Baso # (Auto) 0.0, Sodium 127 L, Potassium 4.0, Chloride 91 L, Carbon Dioxide 23, Anion Gap 17.0 H, BUN 15, Creatinine 1.10 H, Estimated GFR 50 L, Est GFR ( Amer) 61, Glucose 184 H, Calcium 9.2, Total Bilirubin 0.6, AST 32, ALT 27 D, Alkaline Phosphatase 79, Troponin I < 0.01, NT-Pro-B Natriuret Pep 782 H, Total Protein 7.0, Albumin 4.2, Globulin 2.8, Albumin/Globulin Ratio 1.5 04/06/24 11:50: Urine Color Yellow, Urine Appearance Clear, Urine pH 6.5, Ur Specific [place] <= 1.005, Urine Protein Negative, Urine Glucose (UA) Negative, Urine Ketones Negative, Urine Blood Negative, Urine Nitrate Negative, Urine Bilirubin Negative, Urine Urobilinogen 0.2, Ur Leukocyte Esterase Negative, Urine RBC None, Urine WBC Occasional, Ur Squamous Epith Cells Occasional, Urine Bacteria Trace 04/06/24 12:21: Lactate 1.8 04/06/24 14:40: Troponin I < 0.01 04/06/24 17:09: Troponin I < 0.01 04/07/24 06:40: WBC 5.6, RBC 3.59 L, Hgb 11.0 L, Hct 34.0 L, MCV 94.6, MCH 30.7, MCHC 32.4, RDW 15.6, Plt Count 442 H, MPV 8.0, Neut % (Auto) 73.3, Lymph % (Auto) 18.0, [place] % (Auto) 7.3, Eos % (Auto) 1.0, Baso % (Auto) 0.3, Neut # (Auto) 4.1, Lymph # (Auto) 1.0, [place] # (Auto) 0.4, Eos # (Auto) 0.1, Baso # (Aut o) 0.0, Sodium 127 L, Potassium 4.4, Chloride 94 L, Carbon Dioxide 25, Anion Gap 12.4, BUN 12, Creatinine 0.90, Estimated Creat Clear 76, Estimated GFR 63, Est GFR ( Amer) 77 D, Glucose 121 H D, Calcium 9.0, Total Bilirubin 0.4, AST 28, ALT 17 D, Alkaline Phosphatase 77, Total Protein 6.5, Albumin 3.7 D, Globulin 2.8, Albumin/Globulin Ratio 1.3 I & O for Last 24 hours: Intake & Output 04/04/24 04/05/24 04/06/24 04/07/24 23:59 23:59 23:59 23:59 Intake Total 240 / 240 Output Total 0 / 0 0 / 0 Balance 240 / 240 0 / 0 Weight 185 lb 184 lb 12.8 oz Constitutional Constitutional: no acute distress *Routine HEENT Exam Head: Present normocephalic Eye: Present EOMI and PERRL ENT: Present mucous membranes moist *Routine Neck Exam Neck: Present supple; Absent lymphadenopathy *Routine Respiratory Exam Respiratory: Present CTA bilaterally *Routine Cardiovascular Exam Cardiovascular: Present RRR *Routine Abdominal Exam Abdominal: Present soft and normoactive bowel sounds; Absent tenderness *Routine Rectal Exam Rectal:: deferred *Routine Genitalia Exam Genitalia:: deferred *Routine Extremities Exam Extremities: Absent cyanosis, clubbing or edema *Routine Skin Exam Skin: Present warm; Absent rash *Routine Neurological Exam Neurological: Present alert and oriented X3 Comments: right facial droop, some difficulty closing right eye Meds Home Medications and Allergies Home Medications Medication Instructions Recorded Confirmed Type ropinirole 0.25 mg tablet 0.25 mg PO HS 01/08/18 04/06/24 History atorvastatin 40 mg tablet 40 mg PO HS 06/23/20 04/06/24 History atenolol 50 mg tablet 25 mg PO DAILY 07/04/20 04/06/24 History omeprazole 40 mg capsule,delayed 40 mg PO DAILY 05/15/21 04/06/24 History release magnesium oxide 400 mg PO DAILY Supplement 06/05/21 04/06/24 History mecobalamin (vitamin B12) 1,000 1,000 mcg PO DAILY Supplement 06/05/21 04/06/24 History mcg chewable tablet spironolactone 25 mg tablet 25 mg PO DAILY . #30 tabs 07/03/22 04/06/24 Rx folic acid 1 mg tablet 1 mg PO DAILY Supplement 07/10/22 04/06/24 History aspirin 81 mg chewable tablet 81 mg PO DAILY 07/11/22 04/06/24 History isosorbide mononitrate 30 mg 30 mg PO DAILY #30 tabs 07/12/22 04/06/24 Rx tablet,extended release 24 hr ranolazine 500 mg tablet,extended 500 mg PO BID #60 tabs 07/12/22 04/06/24 Rx release,12 hr metformin 500 mg tablet,extended 500 mg PO DAILY 02/13/23 04/06/24 History release 24 hr famotidine 20 mg tablet (Acid 40 mg (2 x 20 mg) PO HS Gerd 07/23/23 04/06/24 Rx Mushroom Sorter Grader (famotidine)) symptoms #180 tabs levothyroxine 100 mcg tablet 100 mcg PO DAILY 07/23/23 04/06/24 History cholecalciferol (vitamin D3) 50 50 mcg PO DAILY 08/13/23 04/06/24 History mcg (2,000 unit) capsule Nurtec ODT 75 mg disintegrating 75 mg PO .qod Migraine with aura 08/15/2303/18 Rx tablet (rimegepant) 30 days #15 tabs losartan 100 mg tablet 100 mg PO DAILY 03/15/24 04/06/24 History hydrochlorothiazide 12.5 mg tablet 12.5 mg PO DAILY #90 tabs 03/19/24 04/06/24 Rx levofloxacin 750 mg tablet 750 mg PO DAILY 7 days #7 tabs 04/05/24 04/06/24 Rx ondansetron HCl 4 mg tablet 4 mg PO Q8H PRN nausea and 04/05/24 04/06/24 Rx vomiting 5 days #30 tabs prednisone 10 mg tablet 10 mg PO Q12H #10 tabs 04/07/24 Rx valacyclovir 1 gram tablet 1,000 mg PO Q12H #14 tabs 04/07/24 Rx New Prescriptions to Start Prescriptions: prednisone Allen[place],Jamie valacyclovir Allen[place],Jamie Allergies Allergy/AdvReac Type Severity Reaction Status Date / Time dexamethasone [DEXAMETHASONE] Allergy Unknown Verified 03/15/24 14:32 triamcinolone [From KENALOG] Allergy Unknown Verified 03/15/24 14:29 Hospital Course Hospital Course Hospital Course: Patient was admitted for observation and further evaluation. MRI of the brain showed no acute CVA. Patient had no worsening of symptoms. She was tolerating a regular diet and was anxious to go home. Results Data Completed and Pending Labs on day of discharge: Labs from last 24 hours 04/07/24 04/06/24 04/06/24 06:40 17:09 14:40 WBC 5.6 RBC 3.59 L Hgb 11.0 L Hct 34.0 L MCV 94.6 MCH 30.7 MCHC 32.4 RDW 15.6 Plt Count 442 H MPV 8.0 Neut % (Auto) 73.3 Lymph % (Auto) 18.0 [place] % (Auto) 7.3 Eos % (Auto) 1.0 Baso % (Auto) 0.3 Neut # (Auto) 4.1 Lymph # (Auto) 1.0 [place] # (Auto) 0.4 Eos # (Auto) 0.1 Baso # (Auto) 0.0 Sodium 127 L Potassium 4.4 Chloride 94 L Carbon Dioxide 25 Anion Gap 12.4 BUN 12 Creatinine 0.90 Estimated Creat Clear 76 Estimated GFR 63 Est GFR ( Amer) 77 D Glucose 121 H D Lactate Calcium 9.0 Total Bilirubin 0.4 AST 28 ALT 17 D Alkaline Phosphatase 77 Troponin I < 0.01 < 0.01 NT-Pro-B Natriuret Pep Total Protein 6.5 Albumin 3.7 D Globulin 2.8 Albumin/Globulin Ratio 1.3 Urine Color Urine Appearance Urine pH Ur Specific [place] Urine Protein Urine Glucose (UA) Urine Ketones Urine Blood Urine Nitrate Urine Bilirubin Urine Urobilinogen Ur Leukocyte Esterase Urine RBC Urine WBC Ur Squamous Epith Cells Urine Bacteria 04/06/24 04/06/24 04/06/24 12:21 11:50 09:54 WBC 5.9 RBC 3.55 L Hgb 11.0 L Hct 34.1 L MCV 95.8 MCH 30.8 MCHC 32.2 RDW 15.3 Plt Count 482 H MPV 7.4 Neut % (Auto) 79.5 Lymph % (Auto) 14.7 [place] % (Auto) 4.9 Eos % (Auto) 0.5 Baso % (Auto) 0.4 Neut # (Auto) 4.7 Lymph # (Auto) 0.9 [place] # (Auto) 0.3 Eos # (Auto) 0.0 Baso # (Auto) 0.0 Sodium 127 L Potassium 4.0 Chloride 91 L Carbon Dioxide 23 Anion Gap 17.0 H BUN 15 Creatinine 1.10 H Estimated Creat Clear Estimated GFR 50 L Est GFR ( Amer) 61 Glucose 184 H Lactate 1.8 Calcium 9.2 Total Bilirubin 0.6 AST 32 ALT 27 D Alkaline Phosphatase 79 Troponin I < 0.01 NT-Pro-B Natriuret Pep 782 H Total Protein 7.0 Albumin 4.2 Globulin 2.8 Albumin/Globulin Ratio 1.5 Urine Color Yellow Urine Appearance Clear Urine pH 6.5 Ur Specific [place] <= 1.005 Urine Protein Negative Urine Glucose (UA) Negative Urine Ketones Negative Urine Blood Negative Urine Nitrate Negative Urine Bilirubin Negative Urine Urobilinogen 0.2 Ur Leukocyte Esterase Negative Urine RBC None Urine WBC Occasional Ur Squamous Epith Cells Occasional Urine Bacteria Trace Imaging and Cardiology MRI - head: Status: final report (no acute CVA) DS: Diagnosis Discharge Diagnosis (1) Andino's palsy: Status: Acute Code(s): G51.0 - Andino's palsy (2) UTI (urinary tract infection): Status: Acute Code(s): N39.0 - Urinary tract infection, site not specified (3) Right maxillary sinusitis: Status: Acute Code(s): J32.0 - Chronic maxillary sinusitis (4) CAD (coronary artery disease): Status: Chronic Code(s): I25.10 - Atherosclerotic heart disease of [place] coronary artery without angina pectoris (5) Hypertension: Status: Chronic Code(s): I10 - Essential (primary) hypertension Qualifiers: Hypertension type: essential hypertension Qualified Code(s): I10 - Essential (primary) hypertension (6) Hypothyroidism: Status: Chronic Code(s): E03.9 - Hypothyroidism, unspecified Qualifiers: Hypothyroidism type: unspecified Qualified Code(s): E03.9 - Hypothyroidism, unspecified (7) HLD (hyperlipidemia): Status: Chronic Code(s): E78.5 - Hyperlipidemia, unspecified Qualifiers: Hyperlipidemia type: mixed hyperlipidemia Qualified Code(s): E78.2 - Mixed hyperlipidemia (8) History of coronary artery stent placement: Status: Acute Code(s): Z95.5 - Presence of coronary angioplasty implant and graft (9) Anemia: Status: Acute Code(s): D64.9 - Anemia, unspecified (10) Renal insufficiency: Status: Acute Code(s): N28.9 - Disorder of kidney and ureter, unspecified Discharge Plan Disposition Patient Disposition: Home, Self-Care Condition: Fair Follow up Plan Follow up with: Jamie Chahal MD [Primary Care Provider] - 04/15/24 10:45 am Prescriptions/Medication Reconciliation: New valacyclovir 1 gram tablet 1,000 mg PO Q12H Qty: 14 0RF prednisone 10 mg tablet 10 mg PO Q12H Qty: 10 0RF No Action omeprazole 40 mg capsule,delayed release(DR/EC) 40 mg PO DAILY Patient Comments: TAKE 1 CAPSULE BY MOUTH ONCE DAILY cholecalciferol (vitamin D3) 50 mcg (2,000 unit) capsule 50 mcg PO DAILY Nurtec ODT 75 mg tablet,disintegrating 75 mg PO .qod 30 Days Qty: 15 11RF levothyroxine 100 mcg tablet 100 mcg PO DAILY Patient Comments: TAKE 1 TABLET BY MOUTH ONCE DAILY famotidine [Acid Mushroom Sorter Grader (famotidine)] 20 mg tablet 40 mg PO HS Qty: 180 3RF losartan 100 mg tablet 100 mg PO DAILY atenolol 50 mg tablet 25 mg PO DAILY magnesium oxide 400 mg magnesium capsule 400 mg PO DAILY mecobalamin (vitamin B12) 1,000 mcg tablet,chewable 1,000 mcg PO DAILY metformin 500 mg tablet extended release 24 hr 500 mg PO DAILY Patient Comments: TAKE 1 TABLET BY MOUTH ONCE DAILY spironolactone 25 mg tablet 25 mg PO DAILY Qty: 30 4RF hydrochlorothiazide 12.5 mg tablet 12.5 mg PO DAILY Qty: 90 1RF folic acid 1 mg tablet 1 mg PO DAILY aspirin 81 mg Tablet,Chewable 81 mg PO DAILY isosorbide mononitrate 30 mg Tablet Extended Release 24 Hr 30 mg PO DAILY Qty: 30 0RF ranolazine 500 mg Tablet Extended Release 12 Hr 500 mg PO BID Qty: 60 0RF ropinirole 0.25 MG tablet 0.25 mg PO HS atorvastatin 40 MG tablet 40 mg PO HS levofloxacin 750 mg tablet 750 mg PO DAILY 7 Days Qty: 7 0RF Rx Instructions: LAST DOSE 04/12/2024 ondansetron HCl 4 mg tablet 4 mg PO Q8H PRN (Reason: nausea and vomiting) 5 Days Qty: 30 0RF Problem Reconciliation Problems Reviewed?: Yes Patient Discharge Instructions ACTIVITY: Continue current activity DIET: continue same diet Patient Instructions: DI for [place] Palsy Providers Primary Care Provider: Jamie Chahal Admit Provider: Jamie Chahal Attending Provider: Jamie Chahal
[2024-04-07 09:55] LABS: Eosinophils % 1 % (0-3); Lymphocytes % 15 % (10-50); Monocytes % 2 % (2-9); Neutrophils % 82 % (42-76); RBC Morphology Normal; Total Cells Counted 100
[2024-04-07 09:56] LABS: Platelet Estimate Slight Increase
--- NOTE | 2024-04-08 15:19 | CARE MANAGER ---
Called and spoke with patient's spouse regarding recent discharge. He states that she is feeling better. No concerns voiced at time of call.
== END 2024-04-07 11:29 | disposition home or self-care (01) ==
LOC: ER 10:20 → 2ND 12:29
PROVIDERS: Admitting Provider Family Medicine; Emergency Provider Emergency Medicine; PCP Family Medicine; Visit Provider Family Medicine
DX: G51.0 Bell's palsy (principal); I25.10 Atherosclerotic heart disease of native coronary artery without angina pectoris; I10 Essential (primary) hypertension; E03.9 Hypothyroidism, unspecified; E78.2 Mixed hyperlipidemia; Z95.5 Presence of coronary angioplasty implant and graft; D64.9 Anemia, unspecified; N28.9 Disorder of kidney and ureter, unspecified; N39.0 Urinary tract infection, site not specified; J32.0 Chronic maxillary sinusitis; I65.29 Occlusion and stenosis of unspecified carotid artery; E11.9 Type 2 diabetes mellitus without complications; G25.81 Restless legs syndrome; Z79.84 Long term (current) use of oral hypoglycemic drugs; K21.9 Gastro-esophageal reflux disease without esophagitis
CPT/HCPCS: 36415; 70200; 70450; 70496; 70498; 70551; 71275; 74174; 80053; 81001; 83605; 83880; 84484; 85007; 85014; 85018; 85025; 85048; 85049; 93005; 99291; G0378; J2405; Q9967

== ENCOUNTER 2024-08-23 09:47 | Outpatient (CLI) | payer MEDICARE, SELFPAY ==
--- NOTE | 2024-08-23 09:47 | US_ITS ---
FINAL REPORT CLINICAL HISTORY: Repeat in 1 year -- hx of nodules COMPARISON: 08/22/2023 FINDINGS: Sonographic images of the thyroid gland were obtained. The right thyroid lobe measures 42 mm. in length. The left thyroid lobe measures 38 mm. in length. The thyroid isthmus measures 4 mm. Heterogeneous echotexture. There are several small nodules. Largest on the right measures 7 x 5 x 6 mm, isoechoic, TR 3. Largest on the left measures 5 x 4 x 3 mm, solid and hypoechoic, TR 4. Overall appearance is similar to the prior study IMPRESSION: Heterogeneous echotexture which may be due to thyroiditis or goiter. Several small nodules with no follow-up recommended per TI-RADS criteria. No new mass or nodule identified. Reviewed, Interpreted and Dictated by Van Barnard III, MD Transcribed by Nelly Luna Authenticated and [facility]
== END 2024-08-23 23:59 | disposition home or self-care (01) ==
LOC: RAD 09:47
PROVIDERS: PCP Family Medicine; Visit Provider Nurse Practitioner
DX: E04.1 Nontoxic single thyroid nodule (principal); R13.10 Dysphagia, unspecified
CPT/HCPCS: 76536

== ENCOUNTER 2024-09-01 12:15 | Outpatient (CLI) | payer MEDICARE, SELFPAY ==
[2024-09-01 14:33] LABS: Free T4 (Free Thyroxine) 1.23 ng/dl (0.78-2.19)
[2024-09-01 14:47] LABS: Thyroid Stimulating Hormone 0.63 uIU/mL (0.465-4.68)
== END 2024-09-01 23:59 | disposition home or self-care (01) ==
LOC: LAB 12:16
PROVIDERS: PCP Family Medicine; Visit Provider Nurse Practitioner
DX: E03.9 Hypothyroidism, unspecified (principal)
CPT/HCPCS: 36415; 84439; 84443

== ENCOUNTER 2024-09-14 09:35 | Outpatient (CLI) | payer MEDICARE, SELFPAY ==
[2024-09-14 10:29] LABS: Basophils % 0.4 % (0.1-2.0); Eosinophils # 0.2 K/mm3 (0.0-0.4); Eosinophils % 2.9 % (0.1-12.0); Hematocrit 31.9 % (37.0-47.0); Hemoglobin 9.7 g/dL (12.2-16.2); Lymphocytes # 1.1 K/mm3 (0.7-4.5); Lymphocytes % 19.9 % (10-50); Mean Corpuscular HGB Conc 30.4 g/dL (31.8-35.4); Mean Corpuscular Hemoglobin 29.2 pg (27.0-31.2); Monocytes # 0.4 K/mm3 (0.1-1.0); Monocytes % 6.4 % (1.7-9.3); Neutrophils # 3.9 K/mm3 (1.8-7.8); Neutrophils % 70.4 % (37.0-80.0); Platelet Count 452 K/mm3 (142-424); Red Blood Count 3.32 M/mm3 (4.20-5.40); Red Cell Distribution Width 15.2 % (11.5-17.5); White Blood Count 5.6 K/mm3 (4.8-10.8)
[2024-09-14 10:44] LABS: Albumin Level 4.1 g/dl (3.5-5.0); Chloride 102 mmol/L (98-107); Potassium 4.3 mmoL/L (3.5-5.1); Sodium 137 mmol/L (136-145)
[2024-09-14 10:46] LABS: Blood Urea Nitrogen 27 mg/dl (7-17); Estimated Glomerular Filt Rate 45 ml/min (>60); GFR (African American) 55 ML/MIN (>60)
[2024-09-14 10:47] LABS: Alanine Aminotransferase 16 U/L (12-78); Alkaline Phosphatase 85 U/L (38-126); Anion Gap 16.3 mEq/L (5-15); Aspartate Amino Transferase 22 U/L (14-36); Bilirubin,Direct 0.1 mg/dl (0.0-0.4); Bilirubin,Indirect 0.4 mg/dL (0.0-0.9); Bilirubin,Total 0.5 mg/dl (0.2-1.3); Bilirubin,Unconjugated 0.4 mg/dL (0.0-1.1); Calcium 9.3 mg/dl (8.4-10.2); Carbon Dioxide 23 mmol/L (22.0-30.0); Cholesterol 131 mg/dl (140-200); Glucose 147 mg/dl (74-100); Magnesium 1.8 mg/dl (1.6-2.3); Total Protein,Serum 6.7 g/dl (6.3-8.2); Triglycerides 88 mg/dl (30-150); VLDL Cholesterol 18 mg/dL (0-40)
[2024-09-14 10:48] LABS: Chol/HDL Ratio 2.3 (1-3.5); HDL Cholesterol 57 mg/dl (40-60)
[2024-09-14 10:58] LABS: Direct LDL Cholesterol 51.13 mg/dL (100-129)
== END 2024-09-14 23:59 | disposition home or self-care (01) ==
LOC: LAB 09:36
PROVIDERS: PCP Family Medicine; Visit Provider Physician Assistant
DX: I95.2 Hypotension due to drugs (principal); R42 Dizziness and giddiness; E87.1 Hypo-osmolality and hyponatremia; K21.00 Gastro-esophageal reflux disease with esophagitis, without bleeding; G47.33 Obstructive sleep apnea (adult) (pediatric); Z95.5 Presence of coronary angioplasty implant and graft; E78.2 Mixed hyperlipidemia; I10 Essential (primary) hypertension; I25.10 Atherosclerotic heart disease of native coronary artery without angina pectoris; I65.29 Occlusion and stenosis of unspecified carotid artery
CPT/HCPCS: 36415; 80048; 80061; 80076; 83735; 85025

== ENCOUNTER 2024-09-18 11:19 | Outpatient (CLI) | payer MEDICARE, SELFPAY ==
[2024-09-18 11:52] LABS: Occult Blood,Stool Negative (Negative)
== END 2024-09-18 23:59 | disposition home or self-care (01) ==
LOC: LAB.DROPOF 11:20
PROVIDERS: PCP Family Medicine; Visit Provider Family Medicine
DX: D64.9 Anemia, unspecified (principal)
CPT/HCPCS: 82272; G0328

== ENCOUNTER 2024-12-31 16:19 | Outpatient (CLI) | payer MEDICARE, SELFPAY ==
[2024-12-31 12:23] LABS: Basophils % 0.7 % (0.1-2.0); Eosinophils # 0.2 K/mm3 (0.0-0.4); Eosinophils % 3.1 % (0.1-12.0); Hematocrit 33.5 % (37.0-47.0); Hemoglobin 10.6 g/dL (12.2-16.2); Lymphocytes # 1.5 K/mm3 (0.7-4.5); Lymphocytes % 26.6 % (10-50); Mean Corpuscular HGB Conc 31.6 g/dL (31.8-35.4); Mean Corpuscular Hemoglobin 28.6 pg (27.0-31.2); Mean Corpuscular Volume 90.3 fl (81-99); Mean Platelet Volume 10.3 fl (7.4-10.4); Monocytes # 0.5 K/mm3 (0.1-1.0); Neutrophils # 3.5 K/mm3 (1.8-7.8); Neutrophils % 60.3 % (37.0-80.0); Platelet Count 407 K/mm3 (142-424); Red Blood Count 3.71 M/mm3 (4.20-5.40); Red Cell Distribution Width 16.1 % (11.5-17.5); White Blood Count 5.8 K/mm3 (4.8-10.8)
[2024-12-31 12:49] LABS: Albumin Level 4.5 g/dl (3.5-5.0); Chloride 103 mmol/L (98-107); Sodium 139 mmol/L (136-145)
[2024-12-31 12:50] LABS: Potassium 4.3 mmoL/L (3.5-5.1)
[2024-12-31 12:52] LABS: Alanine Aminotransferase 20 U/L (12-78); Alkaline Phosphatase 91 U/L (38-126); Anion Gap 13.3 mEq/L (5-15); Aspartate Amino Transferase 25 U/L (14-36); Bilirubin,Total 0.4 mg/dl (0.2-1.3); Blood Urea Nitrogen 19 mg/dl (7-17); Calcium 9.4 mg/dl (8.4-10.2); Carbon Dioxide 27 mmol/L (22.0-30.0); Cholesterol 132 mg/dl (140-200); Estimated Glomerular Filt Rate 56 ml/min (>60); GFR (African American) 68 ML/MIN (>60); Globulin 2.3 g/dL (1.3-3.2); Glucose 117 mg/dl (74-100); Iron 93 ug/dL (37-170); Phosphorous 4.1 mg/dl (2.5-4.5); Total Protein,Serum 6.8 g/dl (6.3-8.2); Triglycerides 116 mg/dl (30-150); VLDL Cholesterol 23 mg/dL (0-40)
[2024-12-31 12:53] LABS: Chol/HDL Ratio 2.5 (1-3.5); HDL Cholesterol 52 mg/dl (40-60); Magnesium 1.9 mg/dl (1.6-2.3)
[2024-12-31 13:02] LABS: Total Iron Binding Capacity 492 ug/dL (265-497)
[2024-12-31 13:09] LABS: Direct LDL Cholesterol 50.83 mg/dL (100-129)
[2024-12-31 13:10] LABS: 25-OH Vitamin D, Total 55.2 ng/mL (30-100)
[2024-12-31 13:11] LABS: Free T4 (Free Thyroxine) 1.37 ng/dl (0.78-2.19)
[2024-12-31 13:24] LABS: Thyroid Stimulating Hormone 0.37 uIU/mL (0.465-4.68)
[2024-12-31 13:28] LABS: Ferritin 6.33 ng/ml (11.1-264)
[2024-12-31 13:33] LABS: HIV Combo NEGATIVE (Negative)
[2024-12-31 13:42] LABS: Hepatitis C Ab Qual. W/ RFX NEGATIVE (Negative)
[2024-12-31 13:55] LABS: Vitamin B12 900 pg/mL (239-931)
[2024-12-31 15:26] LABS: Hemoglobin A1C 5.9 % (4.0-6.0)
== END 2024-12-31 23:59 | disposition home or self-care (01) ==
LOC: LAB.DROPOF 16:19
PROVIDERS: PCP Nurse Practitioner Family; Visit Provider Nurse Practitioner Family
DX: E04.1 Nontoxic single thyroid nodule (principal); R53.83 Other fatigue; D64.9 Anemia, unspecified; E55.9 Vitamin D deficiency, unspecified; G47.33 Obstructive sleep apnea (adult) (pediatric); E03.9 Hypothyroidism, unspecified; E11.9 Type 2 diabetes mellitus without complications; K21.00 Gastro-esophageal reflux disease with esophagitis, without bleeding; I10 Essential (primary) hypertension; E78.2 Mixed hyperlipidemia; Z11.4 Encounter for screening for human immunodeficiency virus [HIV]; Z11.59 Encounter for screening for other viral diseases
CPT/HCPCS: 80053; 80061; 82306; 82607; 82728; 83036; 83540; 83550; 83735; 84100; 84439; 84443; 85025; 86803; 87389

== ENCOUNTER 2024-12-31 19:37 | Outpatient (CLI) | payer MEDICARE, SELFPAY ==
[2024-12-31 19:46] LABS: Microscopic, Urine URINE MICROSCOPIC (MICROSCOPIC)
[2024-12-31 20:21] LABS: Bilirubin,Urine Negative (Negative); Blood, Urine TRACE-I (Negative); Color,Urine YELLOW (Yellow); Glucose,Urine (UA) Negative (Negative); Ketones,Urine Negative (Negative); Leukocyte Esterase,Urine 1+ (Negative); Nitrate,Urine Negative (Negative); Protein,Urine Negative (Negative); Specific Gravity, Urine 1.025 (1.005-1.030); Urobilinogen,Urine 0.2 EU/dl (0.2)
[2024-12-31 20:27] LABS: Creatinine,Urine Random 203 mg/dL (Not Estab.); Total Protein,Urine Random < 5.0 mg/dL (0.0-12.0)
[2024-12-31 20:29] LABS: Appearance,Urine Slightly Cloudy (Clear)
[2024-12-31 20:31] LABS: Microalbumin/Creatinine Ratio 7.4
[2024-12-31 21:23] LABS: Bacteria,Urine 4+ /lpf; Squamous Epithelial Cell,Urine Occasional #/hpf (0-5)
== END 2024-12-31 23:59 | disposition home or self-care (01) ==
LOC: LAB.DROPOF 19:37
PROVIDERS: PCP Nurse Practitioner Family; Visit Provider Nurse Practitioner Family
DX: E11.9 Type 2 diabetes mellitus without complications (principal); I10 Essential (primary) hypertension
CPT/HCPCS: 81001; 82043; 82570; 84156; 87086

== ENCOUNTER 2025-03-28 13:26 | Outpatient (CLI) | payer MEDICARE, SELFPAY ==
[2025-03-28 20:19] LABS: Free T4 (Free Thyroxine) 1.19 ng/dl (0.78-2.19)
== END 2025-03-28 23:59 | disposition home or self-care (01) ==
LOC: LAB.DROPOF 03-29 14:07
PROVIDERS: PCP Nurse Practitioner Family; Visit Provider Nurse Practitioner Family
DX: E03.9 Hypothyroidism, unspecified (principal)
CPT/HCPCS: 84439; 84443

== ENCOUNTER 2025-04-01 16:39 | Outpatient (CLI) | payer MEDICARE, SELFPAY ==
--- OUTSIDE RECORDS SUMMARY | 2025-04-01 16:41 | XMS_ITS | Data Portability ---
Author Organization ABEL Schultz [facility]E CLOSED Address [address] [facility] [address] [place] [address] Assessment Encounter Date Assessment Date Assessment LastModified by Organization Details LastModified Time 06/18/2018 06/18/2018 PREOPERATIVE DIAGNOSIS: Evaluate possible cystocele. POSTOPERATIVE DIAGNOSIS: Evaluate possible cystocele. PROCEDURE: Cystoscopy and pelvic exam. COMPLICATIONS: None. INDICATIONS: Patient is a 58-year-old woman with symptoms concerning to her for pelvic prolapse. The patient is to have cystoscopy to evaluate the situation. Patient had a negative renal ultrasound. OPERATIVE NOTE: Patient was taken to the operative suite and placed in a flexed dorsal lithotomy position. She was prepped and draped. Uro-Jet was injected and then flexible cystoscopy was undertaken. At the completion, she voided and subsequently was taken to the recovery room. Following cystoscopy, after scope removal, I performed bimanual exam including Megan Natan testing. No cystocele, enterocele, or rectocele were noted. No stress incontinence reproduced. FINDINGS: 1. Normal urethra. 2. Normal bladder mucosa. No stones, foreign bodies, or tumors. No evidence of CIS. 3. No cystocele, enterocele, or rectocele evident. PLAN: We will see patient back in 3 months, recheck her symptoms. Cytologies obtained today. [email or web address] Not available 06/19/2018 05:34:07 Plan of Treatment Reminders Order Date Submit Date Provider Last Modified By Organization Details Last Modified Time Details Appointments None record ed. Lab urinal ysis, dipsti ck, auto 018 10/12/20 18 [email or web address] Cu/L[facility] [address], [facility], [place], [address], 8 10:28:36 urinal ysis, dipsti ck, auto 018 06/01/20 18 [email or web address] Cu/ Urology [facility], [address] [facility], [place], [address], 8 13:39:07 Referral None record ed. Procedures None record ed. Surgeries None record ed. Imaging None record ed. Medication Orders None record ed. Patient TargetsNo targets recorded. Patient Instructions Encounter Date Encounter Id Patient Instructions Last Modified By Organization Details Last Modified Time 06/01/2018 [id number] Urinary Tract Infection (UTI) in Women: Care Instructions [email or web address] Not available 06/01/2018 13:39:07 KUB/renal US/ cysto/exam to eval cystocele and sxs. [email or web address] Not available 06/01/2018 13:31:01 10/12/2018 [id number] DOing well. rtc prn. [email or web address] Not available 10/12/2018 10:23:59 Reason for Referral None Reported. Results Created Date Observation Date Name Description Value Unit Range Abnormal Flag Note LastModifiedBy Organization Detail LastModifiedTime 10/12/20 18 10/12/2018 urina lysis , dipst ick, auto Unknown Analyte Yellow Not Available / Urology [facility] [address] [facility], [place], [address], 10/12/2018 10:08:21 10/12/20 18 10/12/2018 urina lysis , dipst ick, auto Unknown Analyte Clear Not Available / Urology [facility] [address] [facility], [place], [address], 10/12/2018 10:08:21 10/12/20 18 10/12/2018 urina lysis , dipst ick, auto Unknown Analyte 1.005 Not Available / Urology [facility] [address] [facility], [place], [address], 10/12/2018 10:08:21 10/12/20 18 10/12/2018 urina lysis , dipst ick, auto Unknown Analyte 7.0 Not Available Cu[facility]Lc [facility] [address] [facility], [place], [address], 10/12/2018 10:08:21 10/12/20 18 10/12/2018 urina lysis , dipst ick, auto Unknown Analyte Negati ve Not Available Cu/Lc Urol[facility] [address] [place], [address], 10/12/2018 10:08:21 10/12/20 18 10/12/2018 urina lysis , dipst ick, auto Unknown Analyte Negati ve Not Available Cu/Lc [facility] [address] [facility], [place], [address], 10/12/2018 10:08:21 10/12/20 18 10/12/2018 urina lysis , dipst ick, auto Unknown Analyte Negtiv e Not Available Cu/Lc [facility] [address] [place], [address], 10/12/2018 10:08:21 10/12/20 18 10/12/2018 urina lysis , dipst ick, auto Unknown Analyte Normal Not Available Cu[facility] [address] [place], [address], 10/12/2018 10:08:21 10/12/20 18 10/12/2018 urina lysis , dipst ick, auto Unknown Analyte Negati ve Not Available Cu/Lc [facility] [address] [place], [address], 10/12/2018 10:08:21 10/12/20 18 10/12/2018 urina lysis , dipst ick, auto Unknown Analyte Normal Not Available [facility] [address] [place], [address], 10/12/2018 10:08:21 10/12/20 18 10/12/2018 urina lysis , dipst ick, auto Unknown Analyte Negati ve Not Available Cu/Lc [facility] [address] [facility], [place], [address], 10/12/2018 10:08:21 10/12/20 18 10/12/2018 urina lysis , dipst ick, auto Unknown Analyte Negati ve Not Available Cu/Lc [facility] [address] [facility], [place], [address], 10/12/2018 10:08:21 10/12/20 18 10/12/2018 urina lysis , dipst ick, auto Unknown Analyte Clean Catch Not Available Cu/Lc Urol[facility] [address] [facility], [place], [address], 10/12/2018 10:08:21 10/12/20 18 10/12/2018 urina lysis , dipst ick, auto Unknown Analyte Visual Not Available Cu[facility] [address] [facility], [place], [address], 10/12/2018 10:08:21 06/01/20 18 06/01/2018 urina lysis , dipst ick, auto Unknown Analyte Yellow Not Available Cu[facility] [address] [place], [address], 06/01/2018 13:11:50 06/01/20 18 06/01/2018 urina lysis , dipst ick, auto Unknown Analyte Clear Not Available Cu[facility] [address] [place], [address], 06/01/2018 13:11:50 06/01/20 18 06/01/2018 urina lysis , dipst ick, auto Unknown Analyte 1.005 Not Available Cu/[facility] [address] [place], [address], 06/01/2018 13:11:50 06/01/20 18 06/01/2018 urina lysis , dipst ick, auto Unknown Analyte 7.0 Not Available Cu[facility] [address] [facility], [place], [address], 06/01/2018 13:11:50 06/01/20 18 06/01/2018 urina lysis , dipst ick, auto Unknown Analyte Negati ve Not Available Cu/Lc [facility]rol[facility] [address] [facility], [place], [address], 06/01/2018 13:11:50 06/01/20 18 06/01/2018 urina lysis , dipst ick, auto Unknown Analyte Negati ve Not Available Cu/Lc [facility]rol[facility] [address] [facility], [place], [address], 06/01/2018 13:11:50 06/01/20 18 06/01/2018 urina lysis , dipst ick, auto Unknown Analyte Trace Not Available Cu[facility] [address] [facility], [place], [address], 06/01/2018 13:11:50 06/01/20 18 06/01/2018 urina lysis , dipst ick, auto Unknown Analyte Normal Not Available Cu/Lc Urology [facility] [address] [facility], [place], [address], 06/01/2018 13:11:50 06/01/20 18 06/01/2018 urina lysis , dipst ick, auto Unknown Analyte Negati ve Not Available Cu/Lc Urolo gy [facility] [address] [place], [address], 06/01/2018 13:11:50 06/01/20 18 06/01/2018 urina lysis , dipst ick, auto Unknown Analyte Normal Not Available [facility] [address] [place], [address], 06/01/2018 13:11:50 06/01/20 18 06/01/2018 urina lysis , dipst ick, auto Unknown Analyte Negati ve Not Available Cu/Lc Urol[facility] [address] [facility], [place], [address], 06/01/2018 13:11:50 06/01/20 18 06/01/2018 urina lysis , dipst ick, auto Unknown Analyte Negati ve Not Available Cu/Lc Urol[facility] [address] [facility], [place], [address], 06/01/2018 13:11:50 06/01/20 18 06/01/2018 urina lysis , dipst ick, auto Unknown Analyte Clean Catch Not Available Cu/Lc Urol[facility] [address] [facility], [place], [address], 06/01/2018 13:11:50 06/01/20 18 06/01/2018 urina lysis , dipst ick, auto Unknown Analyte Automa latricia Not Available Cu/Lc Urolo [facility] [address] [facility], [place], [address], 06/01/2018 13:11:50 06/18/20 18 06/18/2018 cytol ogy, non-g yneco logic al, unspe cifie d speci men medical cytology procedure SEE BELOW Depar tment of Patho logy Medic al Cytol ogy Repor t NAME: TRUEMICHAEL A PATH. :[id number]-1 [id number] 11 Copie s to: SOURC E OF SPECI MEN: URINE , VOIDE D Volum e: 80 mL Color : Straw Fixed : N Blood y: N Clott ed: N Clear : Y CLINI NATY INFOR MATIO N: N 39.0 URINA RY FREQU ENCY Diagn osis: Urine , voide d, ThinP rep: Negat bal for karla bertrand Marky GARDNER MD Umm d Out: 06/22 , 11:25 Page 1 of 1 Not Available [facility] [address] [place], [address], 06/22/2018 11:27:04 06/18/20 18 06/18/2018 urina lysis , dipst ick, auto Unknown Analyte Yellow Not Available [facility] Schedule [address] [place], [address], 06/18/2018 12:28:19 06/18/20 18 06/18/2018 urina lysis , dipst ick, auto Unknown Analyte Clear Not Available [facility] Schedule [address] [place], [address], 06/18/2018 12:28:19 06/18/20 18 06/18/2018 urina lysis , dipst ick, auto Unknown Analyte 1.015 Not Available [facility] Schedule [address] [place], [address], 06/18/2018 12:28:19 06/18/20 18 06/18/2018 urina lysis , dipst ick, auto Unknown Analyte 9.0 Not Available [facility] Schedule [address] [place], [address], 06/18/2018 12:28:19 06/18/20 18 06/18/2018 urina lysis , dipst ick, auto Unknown Analyte 25 Jia/ul Trace Not Available [facility] [address] [place], [address], 06/18/2018 12:28:19 06/18/20 18 06/18/2018 urina lysis , dipst ick, auto Unknown Analyte Negati ve Not Available [facility] [address] [place], [address], 06/18/2018 12:28:19 06/18/20 18 06/18/2018 urina lysis , dipst ick, auto Unknown Analyte Negtiv e Not Available [facility] [address] [place], [address], 06/18/2018 12:28:19 06/18/20 18 06/18/2018 urina lysis , dipst ick, auto Unknown Analyte Normal Not Available [facility] Schedule [address] [place], [address], 06/18/2018 12:28:19 06/18/20 18 06/18/2018 urina lysis , dipst ick, auto Unknown Analyte Negati ve Not Available [facility] [address] [place], [address], 06/18/2018 12:28:19 06/18/20 18 06/18/2018 urina lysis , dipst ick, auto Unknown Analyte Normal Not Available [facility] Schedule [address] [place], [address], 06/18/2018 12:28:19 06/18/20 18 06/18/2018 urina lysis , dipst ick, auto Unknown Analyte Negati ve Not Available [facility] [address] [place], [address], 06/18/2018 12:28:19 06/18/20 18 06/18/2018 urina lysis , dipst ick, auto Unknown Analyte Negati ve Not Available [facility] [address] [place], [address], 06/18/2018 12:28:19 06/18/20 18 06/18/2018 urina lysis , dipst ick, auto Unknown Analyte Clean Catch Not Available [facility] [address] [place], [address], 06/18/2018 12:28:19 06/18/20 18 06/18/2018 urina lysis , dipst ick, auto Unknown Analyte Automa latricia Not Available [facility] [address] [place], [address], 06/18/2018 12:28:19 06/18/20 18 06/18/2018 US, retro perit oneum , limit ed [address] [address] [place] Name: JENIFFER lion : [birth year] [place] Orderi ng Provid er: MONSTER H IBARRA EXAM DATE: 2017 EXAM: US KIDNEY BILAT WO BLADDE R CLINIC AL INFORM ATION: UTIs TECHNI QUE: Multip le sonogr aphic images of both kidney s were obtain ed. COMPAR AMISHA: None. FINDIN GS: RIGHT KIDNEY : Length = 11.6 cm. No hydron ephros is, mass or stone. LEFT KIDNEY : Length = 10.6 cm. No hydron ephros is, mass or stone. IMPRES ALYSSA: Normal sonogr am of both kidney s. Interp reted By: Umberto Grajeda MD Electr onical ly Signed By: Umberto Grajeda MD on 06/18/20 10:[address] Radiology [address], [address], 06/18/2018 10:26:48 06/18/20 18 06/18/2018 XR, abdom en, [address] [address] [place] Name: JENIFFER lion : [birth year] [place] [place] 30 Orderi ng Provid er: MONSTER H IBARRA EXAM DATE: 2017 EXAM: XR ABDOME N KUB CLINIC AL INFORM ATION: Abdomi nal pain. UTIs IMAGES PROVID ED: KUB AP radiog raphic images of the abdome n. COMPAR AMISHA: None. FINDIN GS: No abnorm al intest inal gas patter n. No abnorm al calcif icatio ns are seen. No radiog raphic eviden ce of free intrap eriton eal air. IMPRES ALYSSA: Normal x-ray abdome n KUB. Interp reted By: Umberto Grajeda MD Electr onical ly Signed By: Umberto Grajeda MD on 06/18/20 11:[address] Radiology [facility] [address] [place], [address], 06/19/2018 10:14:31 Result Notes None recorded. Procedures Surgical History Date Name Laterality Status Provider Name and Address Organization Details Recorded Time 10/12/20 18 Post Void Residual; Ultrasound completed [facility] 10/12/2018 10:28:20 06/01/20 18 Post Void Residual; Ultrasound completed [facility] 06/01/2018 13:13:10 delivery completed [facility] 06/01/2018 13:09:15 Hysterectomy completed [facility] 06/01/2018 13:09:22 Imaging Results Imaging Date Name Status LastModified by Organiz ation Details LastModified Time 06/18/2018 US, retroperiton eum, limited completed [address] Radiology [facility] [address] [place], [address], 06/18/2018 10:26:48 06/18/2018 XR, abdomen, 1 view completed [address] Radiology [facility] [address] [place], [address], 06/19/2018 10:14:31 Procedure Notes None recorded. Medical Equipment None Reported. Allergies No known drug allergies Medications Name Sig Start Date Stop Date Status Note LastModified by Organization Details LastModified Time amoxicillin 500 mg capsule active Not Available Not Available Not Available azithromycin 250 mg tablet active Not Available Not Availabl e Not Available atenolol 25 mg tablet 06/01 completed Not Available Not Available Not Available sulfamethoxaz ole 800 mg-trimethopr im 160 mg tablet 06/01 completed Not Available Not Available Not Available levothyroxine 75 mcg tablet active Not Available Not Availabl e Not Available levothyroxine 100 mcg tablet 06/01 completed Not Available Not Available Not Available levothyroxine 88 mcg tablet active Not Available Not Availabl e Not Available ropinirole 0.25 mg tablet Take 1 tablet 3 times a day by oral route. active Not Available Not Available No t Available bromphenirami ne-pseudoephe drine-DM 2 mg-30 mg-10 mg/5 mL oral syrup active Not Available Not Available Not Available fluticasone propionate 50 mcg/actuation nasal spray,suspens ion active Not Available Not Available Not Available atenolol 50 mg tablet active Not Available Not Available No t Available loratadine 10 mg tablet active Not Available Not Available No t Available amoxicillin 500 mg-potassium clavulanate 125 mg tablet active Not Available Not Availabl e Not Available nitrofurantoi n monohydrate/m acrocrystals 100 mg capsule 06/01 completed Not Available Not Available Not Available Vimovo 500 mg-20 mg tablet,immedi ate and delay release 06/01 completed Not Available Not Available Not Available Vitals Date Recorded Body height Body mass index (BMI) Body weight Systolic blood pressure Diastolic blood pressure Provider Name and Address Organization Details Last Updated DateTime 06/01/2018 157.48 cm 31.1 kg/m2 99014.7 g 132 mm[Hg] 82 mm[Hg] Mattielake Erickson [facility] 8 13:07:38 Date Recorded Body height Body mass index (BMI) Body weight Systolic blood pressure Diastolic blood pressure Provider Name and Address Organization Details Last Updated DateTime 10/12/2018 157.48 cm 31.1 kg/m2 34521.7 g 128 mm[Hg] 80 mm[Hg] [facility] 8 10:07:58 Social History Question Answer Notes LastModified by Organizat [employer] Details LastModified Time Tobacco Smoking Status Never Smoker Mattie Erickson [facility] 06/01/2018 13:08:45 Marital Status Informatio n not available 06/01/2018 What Was The Date Of Your Most Recent Tobacco Screening? 10/12/2018 Information n ot available 01/04/2020 Sex: Unknown Functional Status Question Answer Note LastModified by Organizat ion Details LastModified Time What is your level of alcohol consumption? 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 Family History Relationship Description Onset Age of this Age Resolved Age Notes LastModified by Organization Details LastModified Time Mother Diabetes mellitus Not available 2017 13:08:30 Unspecified Relation Family history of malignant neoplasm Not available 2017 13:08:40 Medical History Condition Response Hypertension Y Gynecological HistoryNo gynecological history recorded. Obstetrics History GPAL:G 0 P 0 0 0 0 Past Encounters Encounter ID Performer Location Encounter Start Date Encounter Closed Date Diagnosis/Indication Diagnosis SNOMED-CT Code Diagnosis ICD10 Code Diagnosis Note [id number] MONSTER [facility]RA [facility] [address] [facility] [place] [address] 06/01/2018 12:25:23 06/02/2018 14:45:17 Increased frequency of urination 705369945 R35.0 Urinary tr act infectious disease 64859456 N39.0 Cystocele 324612605 N81. 10 [id number] MONSTER IBARRA MD SURGERY SCHEDULE [address] [place] [address] 06/18/2018 10:16:07 06/18/2018 10:23:15 [id number] MONSTER IBARRA MD UROLOGY [facility] [address] [place] [address] 10/12/2018 09:30:48 10/13/2018 13:25:30 Cystocele 889879340 N81.10 Health Concerns Section Related Observation LastModified by Organization Detai ls LastModified Time None Recorded Concern Status LastModified by Organization Details LastModified Time None Recorded Advance Directives Directive None Recorded Payers Insurance Date Sequence Insurance Name Policy Number Policy Vernon Covered Member ID Vernon Member ID Guarantor Name 10/11/2020 1 [facility] [id number] Jeniffer Gabriel True [id number] Jeniffer Giles 03/27/2021 PAYMENT PLAN Jeniffer Giles Notes Date Note Type Note Provider Name and Address Organization Details Recorded Time 06/01/2018 text/html 58 yo new female here today referred by Dr. Oralia Finley for bladder prolapse. She states that she has no difficulties voiding. She denies any dysuria or gross hematuria. She does have some frequency and at times feels she may not empty well. She has no other complaints or concerns today. MONSTER IBARRA MD [address] [place] [address], [address], [facility] 06/01/2018 13:39:11 10/12/2018 text/html 58 yo female her e today for follow up with possible bladder prolapse. She is s/p normal cysto on 06/18/2018. She has no complaints or concerns today. She denies any dysuria or gross hematuria. MONSTER [facility]BARRA MD [address] [facility] [place], [address], [facility] 10/12/2018 10:30:05 OBGyn Episode No OBEpisode recorded.
--- NOTE | 2025-04-01 17:00 | MM_ITS ---
PROCEDURE INFORMATION: Exam: MG Bilateral Screening 3D Mammography Exam date and time: 04/01/2025 4:46 PM Age: 65 years old Clinical indication: Screening examination. Family history of breast carcinoma. TECHNIQUE: Imaging protocol: Bilateral Screening tomosynthesis and 2D mammography including computer-aided detection (CAD) when performed. COMPARISON: 1. MG MM DIG SCREENING MAMM BI W/CAD 03/17/2024 4:12 PM 2. MG MM DIG SCREENING MAMM BI W/CAD 03/17/2020 9:04 AM 3. MG SCBI MM Dig screening mamm BI w/CAD 02/22/2019 10:58 AM 4. MG SCBI MM Dig screening mamm BI w/CAD 02/19/2018 5:11 PM 5. MG DMSB DIGITAL MAMM-SCREEN BILATERAL 07/20/2010 11:07 AM 6. MG DIGMAMMS MAMMOGRAM SCREEN-SWATCH PASTER N/C 07/17/2009 12:56 PM FINDINGS: MAMMOGRAPHY: Breast composition: There are scattered areas of fibroglandular density. Mass: No suspicious masses. Architectural distortion: No suspicious distortion. Calcifications: No suspicious calcifications. Asymmetric density: None. Skin thickening: None. Axillary adenopathy: None. IMPRESSION: 1. No mammographic evidence of malignancy. Annual screening is recommended unless otherwise clinically indicated. 2. Given the reported risk factors for this patient, a breast cancer risk assessment may prove useful for further evaluation. ASSESSMENT: BI-RADS Category 1: Negative.
== END 2025-04-01 23:59 | disposition home or self-care (01) ==
LOC: RAD 16:40
PROVIDERS: PCP Nurse Practitioner Family; Visit Provider Nurse Practitioner Family
DX: Z12.31 Encounter for screening mammogram for malignant neoplasm of breast (principal); Z80.3 Family history of malignant neoplasm of breast
CPT/HCPCS: 77063; 77067

== ENCOUNTER 2025-04-04 12:45 | Outpatient (CLI) | payer MEDICARE, SELFPAY ==
--- NOTE | 2025-04-04 13:00 | XR_ITS ---
FINAL REPORT TECHNIQUE: Bone densitometry calculations of the lumbar spine and bilateral hips were obtained. CLINICAL HISTORY: postmenopausal bone loss COMPARISON: None FINDINGS: Using L1-4, the bone mineral density of the spine is 1.151 g/cm2, corresponding to T-score of 0.9. Using the left hip, the bone mineral density of the femoral neck is 0.631 g/cm2, corresponding to a T-score of -2.0. Using the right hip, the bone mineral density of the femoral neck is 0.633 g/cm?, corresponding to a T-score of -1.9. NOTE: T-score: Standard deviation compared with peak bone mass of young adult mean. *Following the recommendations of the International Society of Bone densitometry, classification of hip BMD is based on the lower of two T-scores; total hip or femoral neck. IMPRESSION: Normal bone mineral density of the lumbar spine. Diminished bone mineral density of the bilateral femoral necks, consistent with osteopenia. Reviewed, Interpreted and Dictated by Salinas Goodman MD Transcribed by Marita Schwab Authenticated and [facility]
== END 2025-04-04 23:59 | disposition home or self-care (01) ==
LOC: RAD 12:46
PROVIDERS: PCP Nurse Practitioner Family; Visit Provider Nurse Practitioner Family
DX: M85.851 Other specified disorders of bone density and structure, right thigh (principal); M85.852 Other specified disorders of bone density and structure, left thigh; M81.0 Age-related osteoporosis without current pathological fracture
CPT/HCPCS: 77080

== ENCOUNTER 2025-05-12 13:12 | Outpatient (CLI) | payer MEDICARE, SELFPAY ==
--- OUTSIDE RECORDS SUMMARY | 2024-09-17 07:15 | XMS_ITS ---
Author Organization [facility] [address] [place] [id number] Care Team Providers Care Electrical Experimental Mechanic Name Role Phone ArkomaJamie Primary Care Provider Results Component Value Reference [...] 30 day(s) Active Vitamin D3 250 MCG (91177 UT) 1 cap(s) o rally once a [...] Active Vitamin D (Ergocalciferol) 1 .25 MG (84924 UT) 1 cap(s) orally once a week Active Immunizations Vaccine Route Administration Date Status Comme nts Fluzone Quad (6months&older) IM Intramuscular 09/17/2024 Administered Problems Problem Type SNOMED Code ICD Code Onset Dates Problem Status W/U Status Risk Notes Problem Anemia, unspecified type (D64.9) Active confirmed Encounters Encounter Location Date Provider Diagnosis [facility] [facility] [facility] 36 [facility] [address] [place] [phone] 09/17/2024 Jamie Chahal Encounter for immunization Z23 and Anemia, unspecified type D64.9 Assessments Encounter Date Diagnosis (ICD Code) Assessment Notes Treatment Notes Treatment Clinical Notes Section Notes 09/17/2024 Encounter for immunization (ICD-10 - Z23) 09/17/2024 Anemia, unspecified type (ICD-10 - D64.9) Plan Of Treatment Next Appt Details Follow Up: 2 Weeks, Reason: Progress Notes * JON MOURAGUILHERMEB:1960 ( 65 yo F)Acc No.[id number]:09/17/2024 Patient: JENIFFER PETERSON Provider: Marnie Chahal M.D. :1960 A ge:64 Y S ex:Female Date:09/17/2024 Address:[address] [place], [place] [id number] Subjective: * Chief Complaints: * 1 [...] , Taking Vitamin D (Ergocalciferol) 1.25 MG (74254 UT) Capsule 1 cap(s) orally once a week , Taking Aspirin 81 MG Tablet Chewable 1 tab(s) chewed once a day , Taking Vitamin D3 250 MCG (80192 UT) Capsule 1 cap(s) orally once a [...] Electronic signature of Brooke Chahal MD on 05/12/2025 at 01:19 PM EDT Sign off status: Pending * Provider: Marnie Chahal M.D. Date: 11/17/2023 Generated for Luisa pizarro/Nolan/Marcela on: 0 05/12/2025 01:19 PM EDT
--- OUTSIDE RECORDS SUMMARY | 2024-10-01 07:15 | XMS_ITS ---
Author Organization [facility] Address [address] [place] [id number] Care Team Providers Care Silk Screen Frame Assembler Name Role Phone Jamie Chahal Primary Care [...] Interpretation:Normal Performing Lab: Notes/Report: Test performed by [facility] [address] [place] [address] , [address], [place] [address] Johnny Smith MD, Laborer Pole Crew CLIA: [id number] Vitamin B12 0416 538-2427 pg/mL P-Basic Metabolic Panel (BMP ) Reviewed date:10/04/2024 11:01:01 AM Interpretation:Creat 1.10, eGFR 56 Performing Lab: Notes/Report: Test performed by [facility] [address] [facility], [place] [address] Johnny Smith MD, Laborer Pole Crew CLIA: [id number] Sodium 139 135-145 mmol/L Potassium 4.7 3.5-5.3 mmol/L Chloride 103 97-108 mmol/L CO2 24 22-32 mmol/L Glucose 89 65-99 mg/dL BUN 20 8-23 mg/dL Creatinine 1.10 0.50-1.00 mg/dL Calcium 9.5 8.6-10.4 mg/dL eGFR by Creatinine 56 >59 mL/min/1.73m2 P-Iron with Transferrin Satu ration Reviewed date:10/04/2024 11:01:01 AM Interpretation:Transferrin 375, Trans Sat 12% Performing Lab: Notes/Report: Test performed by [facility] [address] , [place] [address] Johnny Smith MD, Laborer Pole Crew CLIA: [id number] Iron 65 37-145 ug/dL Transferrin 375 200-360 mg/dL Transferrin Saturation Percentage 12 15-50 % P-Phosphorus Reviewed date:10/04/2024 11:01:01 AM Interpretation:Normal Performing Lab: Notes/Report: Test performed by [facility] [address] [place] [address], [place] [address] Johnny Smith MD, Laborer Pole Crew CLIA: [id number] Phosphorus 4.1 2.5-4.5 mg/dL P-Parathyroid Hormone (PTH) Intact Reviewed date:10/04/2024 11:01:01 AM Interpretation:Normal Performing Lab: Notes/Report: Test performed by [facility] [address] , [place] [address] Johnny Smith MD, Laborer Pole Crew CLIA: [id number] Parathyroid Hormone (PTH) Intact 40.9 15.0-65. 0 [...] Active Vitamin D (Ergocalciferol) 1 .25 MG (36103 UT) 1 cap(s) orally once a week Active Spironolactone 25 MG 1 tab(s) orally onc e a day; Duration: 30 day(s) Active Vitamin D3 250 MCG (84715 UT) 1 cap(s) o rally once a week 09/02/2022 Active Vital Signs Blood pressure systolic 130 mm Hg 10/01/20 24 Blood pressure diastolic 72 mm Hg 024 Heart Rate 61 /min 10/01/2024 Height 62 in 10/01/2024 Weight 188 lbs 10/01/2024 BMI 34.38 kg/m2 10/01/2024 Encounters Encounter Location Date Provider Diagnosis [facility] [address] [place] [id number] 10/01/2024 Jamie Chahal Renal insufficiency N28.9 ; [...] Omeprazole 40 MG Take 1 capsule by [facility] once daily for 90 days Next Appt Details Follow Up: via phone to repo rt test results, Reason: Progress Notes * TRUE, JONNDADOB:1960 ( 65 yo F)Acc No.[id number]:10/01/2024 Progress Notes Patient: JENIFFER PETERSON Provider: Marnie Chahal M.D. :1960 A ge:64 Y S ex:Female Date:10/01/2024 Address:[address] [place], [place] [address] [id number] Subjective: * Chief Complaints: * 1 . [...] * Hospitalization/Major Diagno stic Procedure: S yncope- [facility] ER 11/03/2020, Syncope, Anemia- H 01/14-01/16/2021, [...] , Taking Vitamin D (Ergocalciferol) 1.25 MG (12093 UT) Capsule 1 cap(s) orally once a week , Taking Aspirin 81 MG Tablet Chewable 1 tab(s) chewed once a day , Taking Vitamin D3 250 MCG (78485 UT) Capsule 1 cap(s) orally once a [...] AM)?Normal* Value Reference Range V itamin B12 4517 018-5280 - pg/mL * AlecMarina 10/04/2024 11: 00:49 [...] G 2211 Complex e/[place] [address] CBC WITH AUTO DIFF * Follow Up: v ia phone to report test results * Images: Billing Information: * Visit Code: 40224 Office Visit, Est Pt., Level 4. * Procedure Codes: G2211 Complex e/[place]. [address] CBC WITH AUTO DIFF. * Electronic signature of Brooke Chahal MD on 05/12/2025 at 01:19 PM EDT Sign off status: Pending * Provider: Marnie Chahal M.D. Date: 1 12/01/2023 Generated for Luisa pizarro/Nolan/Chicosmitting on: 0 05/12/2025 01:19 PM EDT History and Physical Notes * [...]
--- OUTSIDE RECORDS SUMMARY | 2025-01-10 07:00 | XMS_ITS ---
Author Organization [facility] Address [address] [facility] [address] [place] [id number] Care Team Providers Care Banquet Line Cook Name Role Phone Jamie Chahal Primary Care Provider [phone] REASON FOR VISIT 6 month f/u Encounters Encounter Location Date Provider Diagnosis [facility] [facility] [address] [place] [id number] 01/10/2025 Jamie Chahal Plan Of Treatment No Information Progress Notes * YASH MOURAB:1960 ( 65 yo F)Acc No.[id number]:01/10/2025 Progress Notes Patient: JENIFFER PETERSON Provider: Marnie [...] Date: 01/10/2025 Generated for Printi ng/Faxing/eTransmitting on: 0 05/12/2025 01:19 PM EDT
--- OUTSIDE RECORDS SUMMARY | 2025-05-12 13:19 | XMS_ITS | Patient Health Record ---
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 Role Phone Tirso Jamie Primary Care Provider Allergies Allergen (clinical drug ingredient) Drug/Non Drug Allergy documented on EMR Reaction Allergy Type Onset Date Status dexamethasone Dexamethasone Unknown Drug Allergy Active triamcinolone Triamcinolone Unknown Drug Allergy Active Results Component Value Reference Range Notes P-Parathyroid Hormone (PTH) Intact Reviewed date:10/04/2024 11:01:01 AM Interpretation:Normal Performing Lab: Notes/Report: CLIA: [id number] Johnny Smith MD, Early Morning Bab[employer]itter [address] [place] [address] , [place] [address] Test performed by [facility] Parathyroid Hormone (PTH) Intact 40.9 15.0-65.0 pg/mL P-Phosphorus Reviewed date:10/04/2024 11:01:01 AM Interpretation:Normal Performing Lab: Notes/Report: Test performed by [facility] [address] [place] [address] Natty M[address], [place] [address] Johnny Smith MD, Early Morning Bab[employer]itter CLIA: [id number] Phosphorus 4.1 2.5-4.5 mg/dL P-Iron with Transferrin Satu ration Reviewed date:10/04/2024 11:01:01 AM Interpretation:Transferrin 375, Trans Sat 12% Performing Lab: Notes/Report: Test performed by [facility] [address] [place] [address] Natty Mck[place]ney, [place] [address] Johnny Smith MD, Early Morning Babysitter CLIA: [id number] Iron 65 37-145 ug/dL Transferrin 375 200-360 mg/dL Transferrin Saturation Percentage 12 15-50 % P-Basic Metabolic Panel (BMP ) Reviewed date:10/04/2024 11:01:01 AM Interpretation:Creat 1.10, eGFR 56 Performing Lab: Notes/Report: Test performed by [facility] [address] , [place] [address] Johnny Smith MD, Early Morning Babysitter CLIA: [id number] Sodium 139 135-145 mmol/L Potassium 4.7 3.5-5.3 mmol/L Chloride 103 97-108 mmol/L CO2 24 22-32 mmol/L Glucose 89 65-99 mg/dL BUN 20 8-23 mg/dL Creatinine 1.10 0.50-1.00 mg/dL Calcium 9.5 8.6-10.4 mg/dL eGFR by Creatinine 56 >59 mL/min/1.73m2 P-Vitamin B12 Reviewed date:10/04/2024 11:01:01 AM Interpretation:Normal Performing Lab: Notes/Report: Test performed by [facility] [address] [place] [address] , [address], [place] [address] Johnny Smith MD, Early Morning Babysitter CLIA: [id number] Vitamin B12 0991 602-9736 pg/mL CBC Venipuncture (in house) Reviewed date:10/04/2024 11:01:01 [...] - 38 platlet 441 100 - 400 H-Occult Blood, Stool Reviewed date:09/20/2024 03:49:50 PM Interpretation: Negative Performing Lab: Notes/Report: OB Negative Negative Glucose (In-House) Reviewed date:07/13/2024 09:54:17 AM Interpretation:136 Performing Lab: Notes/Report: 136 blood glucose 136 74 - 106 mg/dL Glycohemoglobin A1c (in hous e) Reviewed date:07/13/2024 09:54:17 AM Interpretation:5.8% Normal Performing Lab: Notes/Report: 5.8% Normal glycohemoglobin 5.8% 5 - 6.5 % P-Comprehensive Metabolic Pa bryce (CMP) Reviewed date:07/13/2024 09:54:17 AM Interpretation:gluc 102, Cr 1.11, gfr 56 Performing Lab: Notes/Report: CLIA: [id number] Johnny Smith MD, Early Morning Babysitter [facility] , [address], [place] [address] Test performed by [facility] Sodium 138 135-145 mmol/L Potassium 4.8 3.5-5.3 [...] Normal Performing Lab: Notes/Report: Test performed by [facility] [address] [place] [address] Natty Mck[address], [address], [place] [address] Johnny Smith MD, Early Morning Babysitter CLIA: [id number] Thyroxine Free (free T4) 1.48 0.86-1.76 ng/dL P-Lipid Panel Reviewed date:07/13/2024 09:54:17 AM Interpretation: Normal Performing Lab: Notes/Report: Test performed by [facility] [address] [place] [address] [place] [address] oJhnny Smith MD, Early Morning Babysitter CLIA: [id number] Cholesterol 135 <200 mg/dL Triglycerides 79 <150 [...] Normal Performing Lab: Notes/Report: Test performed by [facility] [address] [place] [address] [place] [address] Johnny Smith MD, Early Morning Babysitter CLIA: [id number] TSH 0.65 0.43-5.25 mU/L P-Microalbumin/Creatinine, R andom Urine Sample Reviewed date:07/13/2024 09:54:17 AM Interpretation:satisfactory Performing Lab: Notes/Report: Test performed by [facility], [address] , [place] , [place] [address] Johnny Smith MD, Early Morning Babysitter CLIA: [id number] Albumin/Creatinine Ratio, Urine See Comment 0-30 ug/mg Unable to calculate Urine Albumin/Creatinine Ratio when urine creatinine or urine albumin fall outside established reportable range. Microalbumin, Urine, Random <0.3 Creatinine, Urine 59.4 P-Vitamin D 25-Hydroxy Reviewed date:07/13/2024 09:54:17 AM Interpretation:36.8 Performing Lab: Notes/Report: Test performed by [facility], [address] [place] C, [place] [address] Johnny Smith MD, Early Morning Babysitter CLIA: [id number] Vitamin D 25-Hydroxy 36.8 30.0-100.0 ng/mL Interpretation of Vitamin D 25 OH: < 20 ng/mL - Deficiency 20 - 29 ng/mL - Insufficiency 30 - 100 ng/mL - Sufficiency > 100 ng/mL - Super-therapeutic- toxicity may occur above this level. Clinical correlation required. Reason For Referral No Information Medications Medication SIG (Take, Route, Frequency, Duration) Notes Start Date End Date Status metFORMIN HCl ER 500 MG 1 tablet Orally Once a day; Duration: 90 days Active Ranolazine ER 500 MG 1 tab(s) orally 2 times a day Active Atorvastatin Calcium 40 MG 1 tab(s) oral ly once a day; Duration: 90 days Active Atenolol 50 MG 1/2 tab(s) orally once a day; Duration: 90 days Active Famotidine 40 MG 1 tablet Orally Once a day; Duration: 90 days 10/01/2024 Active Spironolactone 25 MG Take 1 tablet by mouth once daily; Duration: 90 Active hydroCHLOROthiazide 25 MG 1 tab(s) orall y once a day Active Losartan Potassium 50 MG 1 tab(s) orally once a day Active rOPINIRole HCl 0.25 MG 1 tablet Orally O nce a day in the evening; Duration: 30 days Active Vitamin D3 250 MCG (96619 UT) 1 cap(s) o rally once a week 09/02/2022 Active Folic Acid 1 MG 1 tab(s) orally once a day; Duration: 30 days Active Aspirin 81 MG 1 tab(s) chewed once a day; Duration: 30 day(s) Active Vitamin D (Ergocalciferol) 1 .25 MG (23616 UT) 1 cap(s) orally once a week Active Euthyrox 100 MCG 1 tab(s) orally once a day; Duration: 30 days Active Nurtec 75 MG 1 tab(s) orally once 07/02/2021 Active B-12 1000 MCG 1 tab(s) orally once a day; Duration: 30 day(s) Active MAGNESIUM ACETATE TETRAHYDRA TE, 500 G Active Gabapentin 100 MG 1 cap(s) orally once a day Active Immunizations Vaccine Route Administration Date Status Comme nts COVID 19 Moderna Unknown 11/16/2020 Administered COVID 19 Moderna Unknown 12/18/2020 Administered COVID 19 Moderna Unknown 11/05/2021 Administered Fluzone PF Quad (6-35 months) Unknown 10/12/2021 Administered Fluzone Quad (6months&older) IM Intramuscular 08/20/2022 Administered Fluzone Quad (6months&older) IM Intramuscular 09/17/2024 Administered Problems Problem Type SNOMED Code ICD Code Onset Dates Problem Status W/U Status Risk Notes Problem Essential hypertension (81822428) Essential (primary) hypertension (I10) Active confirmed Problem Type 2 diabetes mellitus (96645040) Type 2 diabetes mellitus (E11.9) Active confirmed Problem Vitamin D deficiency (18670945) Vitamin D deficiency (E55.9) Active confirmed Problem Essential hypertension (47492894) Essential hypertension (I10) Active confirmed Problem Unstable angina (8761199) Unstable angina (I20.0) Active confirmed Problem Carotid artery occlusion (342518939) Occlusion and stenosis of unspecified carotid artery (I65.29) Active confirmed Problem Chronic maxillary sinusitis (75070267) Chronic maxillary sinusitis (J32.0) Active confirmed Problem Sciatica (13218667) Lumbago with sciatica, left side (M54.42) Active confirmed Problem Chronic pain (16343192) Other chronic pain (G89.29) Active confirmed Problem Restless legs (76978078) Restless leg (G25.81) Active confirmed Problem Acquired hypothyroidism (735143779) Acquired hypothyroidism (E03.9) Active confirmed Problem Atherosclerotic hear t 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 (128344321057590) 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 of lo[place]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 without angina pectoris (I25.10) Active confirmed Problem Gastroesophageal reflux disease (287402323) Gastroesophageal reflux disease, esophagitis presence not specified (K21.9) Active confirmed Problem Migraine (08546777) Migraine wit hout status migrainosus, not intractable, unspecified migraine type (G43.909) Active confirmed Problem Anemia (515949714) Anemia, unspe cified type (D64.9) Active confirmed Problem Hyperlipidaemia (14438295) Hyperlipidemia, unspecified hyperlipidemia type (E78.5) Active confirmed Problem Hypothyroidism (74885886) Hypothyroidism, unspecified type (E03.9) Active confirmed Problem Stented coronary artery (755390593) Stented coronary artery (Z95.5) Active confirmed Problem Impaired fasting glycaemia (294949383) IFG (impaired fasting glucose) (R73.01) Active confirmed Problem Atherosclerotic hear t 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 (672106915656841) Atherosclerosis of [place] coronary artery without angina pectoris, unspecified whether lovelock or transplanted heart (I25.10) Active confirmed Problem Pure hypercholesterolemia (487316115) Pure hypercholesterolemia (E78.00) Active confirmed Problem Angina co-occurrent and due to coronary arteriosclerosis (79240254446346286) 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 stable angina pectoris (I25.118) Active confirmed Problem Carotid artery occlusion (720051912) Stenosis of carotid artery, unspecified laterality (I65.29) Active confirmed Problem Obesity (790934197) Non morbid o besity (E66.9) Active confirmed Problem History of placement of stent for coronary artery disease (situation) (859678947) S/P coronary artery stent placement (Z95.5) Active confirmed Problem Seasonal allergic rhinitis (990919544) Seasonal allergic rhinitis, unspecified trigger (J30.2) Active confirmed Problem Angina co-occurrent and due to coronary arteriosclerosis (13934862099843678) 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 of lovelock heart with other form of angina pectoris (I25.118) Active confirmed Vital Signs Heart Rate 61 /min 10/01/2024 Blood pressure diastolic 72 mm Hg 10/01/2024 Height 62 in 10/01/2024 Blood pressure systolic 130 mm Hg 10/01/2024 Weight 188 lbs 10/01/2024 BMI 34.38 kg/m2 10/01/2024 Encounters Encounter Location Date Provider Diagnosis [facility] [address] [place], [place] [id number] 07/12/2024 Jamie Eldon Essential hypertensi on I10 ; Pure hypercholesterolemia E78.00 ; Type 2 diabetes mellitus E11.9 ; Acquired hypothyroidism E03.9 ; Vitamin D deficiency E55.9 and Gastroesophageal reflux disease, esophagitis presence not specified K21.9 [facility] [address] [place], [place] [id number] 09/17/2024 Jamie Eldon Encounter for immuni zation Z23 and Anemia, unspecified type D64.9 [facility] [address] [place], [place] [id number] 10/01/2024 Jamie Eldon Renal insufficiency N28.9 ; Anemia, unspecified type D64.9 ; Gastroesophageal reflux disease, esophagitis presence not specified K21.9 and Essential hypertension I10 [facility] [address] [place], [place] [id number] 07/13/2024 Jamie Eldon [facility] [address] [place], [place] [id number] 10/04/2024 Jamie Eldon [facility] [address] [place], [place] [id number] 2025 Jamie Eldon [facility] [address] [place], [place] [id number] 05/13/2024 Jamie Eldon Acquired hypothyroid ism E03.9 [facility] [address] [place], [place] [id number] 06/13/2024 Jamie Eldon Assessments Encounter Date Diagnosis (ICD Code) Assessment Notes Treatment Notes Treatment Clinical Notes Section Notes 05/13/2024 Acquired hypothyroid ism (ICD-10 - E03.9) 07/12/2024 Essential hypertensi on (ICD-10 - I10) 07/12/2024 Pure hypercholesterolemia (ICD-10 - E78.00) 09/17/2024 Encounter for immunization (ICD-10 - Z23) 09/17/2024 Anemia, unspecified type (ICD-10 - D64.9) 10/01/2024 Renal insufficiency (ICD-10 - N28.9) 10/01/2024 Anemia, unspecified type (ICD-10 - D64.9) 10/01/2024 Gastroesophageal ref lux disease, esophagitis presence not specified (ICD-10 - K21.9) 07/12/2024 Type 2 diabetes sophia itus (ICD-10 - E11.9) 07/12/2024 Acquired hypothyroid ism (ICD-10 - E03.9) 10/01/2024 Essential hypertensi on (ICD-10 - I10) 07/12/2024 Vitamin D deficiency (ICD-10 - E55.9) 07/12/2024 Gastroesophageal ref lux disease, esophagitis presence not specified (ICD-10 - K21.9) Plan Of Treatment No Information Insurance Providers Payer Name Payer Address Payer Phone Subscriber Number Group Number Insured Name Patient Relationship to Insured Coverage Start Date Coverage End Date [employer] (MEDICAR E) [address] [address] [place] [address] [phone] [id number] Self - patient is the insured Medical (General) History Medical History History ICD Code Coronary Artery Disease, 2019 Hypertension Hypothyroidism Allergic Rhinitis Hyperlipidemia Esophageal Reflux Restless Leg Syndrome Lumbar facet arthropathy Declared disabled by social security adm inJune 2021 Surgical History Surgery Date(Month/Year) C Section x2 Hysterectomy Colonoscopy 2011 LT Heart Cath x 2 05/2020 Cardiac Stent x 6 06/2020 Cardiac Stent x2 01/2021 Hospitalization History Reason Date(Month/Year) Syncope- [facility] ER 11/03/2020 Syncope, Anemia- [facility] 01/14-01/16/2021 Migraine 07/01/2021
--- OUTSIDE RECORDS SUMMARY | 2025-05-12 13:19 | XMS_ITS | Clinical Summary ---
Author Organization Healthcare Address [address] [place] [address] Care Team Providers Care Fx Artist Name Role Phone Jamie Chahal MD Primary Care Provider [phone] Social History Tobacco Use Types Packs/Day Years Used Date Smoking Tobacco: Never Assessed Comments Unknown Sex and Gender Information Value Date Recorded Sex Assigned at Not on file Legal Sex Female 6:48 PM EDT Gender Identity Not on file Sexual Orientation Not on file Plan of Treatment Health Maintenance Due Date Last Done Comments [facility]-Depression Screening 1961 [facility]-/Child/Adol SDOH Screenings 1961 [facility]- SDOH Screenings 1979 [facility]-Adult SDOH Screenings 1979 [facility]-DTaP,Tdap,and Td Vaccine s (1 - Tdap) 1980 [facility]-Pap Smear 1982 [facility]-Cervical Cancer Screening 1991 [facility]-HPV/Cotest 1991 CT Colonography 2006 Colonoscopy 2006 FIT-DNA 2006 FIT 2006 FOBT 2006 Sigmoidoscopy 2006 [facility]-Colorectal Cancer Screening 2006 [facility]-Pneumococcal Vaccine: 50 + Years (1 of 1 - PCV) 2011 [facility]-Zoster Vaccines (1 of 2) 2011 [facility]-PSIFF-12 Vaccine ( - season) 2024 11/05/2021, 12/18/2020, 11/16/2020 [facility]-Influenza Vaccine (Seas[place] n Ended) 2025 10/12/2021 [facility]-RSV Vaccine: 60+ Years o r (1 - 1-dose 75+ series) 2036 HPV Vaccines Aged Out No longer eligi ble based on patient's age to complete this topic [facility]-HIB Vaccines Aged Out No longer e ligible based on patient's age to complete this topic [facility]-Hepatitis A Vaccines Aged Out No longer eligible based on patient's age to complete this topic [facility]-IPV Vaccines Aged Out No longer e ligible based on patient's age to complete this topic [facility]-Rotavirus Vaccines Aged Out No lo nger eligible based on patient's age to complete this [place] [address] ANTH Care Teams Fx Artist Relationship Specialty Start Date End Date Jamie Chahal MD [address] [facility] [address] [place] [facility] PCP - General 03/30/21
--- OUTSIDE RECORDS SUMMARY | 2025-05-12 13:19 | XMS_ITS | Data Portability ---
Author Organization ABEL Schultz [place] [facility] Address [address] [place] [address] Assessment Encounter Date Assessment Date Assessment LastModified [...] ysis, dipsti ck, auto 018 10/12/20 18 [email or web address] Cu/Lc Urology Angelica Lozano, [facility] Angelica Lozano, [place], [address], 8 10:28:36 urinal ysis, dipsti ck, auto 018 06/01/20 18 [email or web address] Cu/ Urology [facility], [address] [facility], [place], [address], 8 13:39:07 Referral None record ed. Procedures None record ed. Surgeries None record ed. Imaging None record ed. Medication Orders None record ed. Patient TargetsNo targets recorded. Patient Instructions Encounter Date Encounter Id Patient Instructions Last Modified By Organization Details Last Modified Time 06/01/2018 [id number] Urinary Tract Infection (UTI) in Women: Care Instructions [email or web address] Not available 06/01/2018 13:39:07 KUB/renal US/ cysto/exam to eval cystocele and sxs. Not available 06/01/2018 13:31:01 10/12/2018 [id number] DOing well. rtc prn. [email or web address] Not available 10/12/2018 10:23:59 Reason for Referral None Reported. Results Created Date Observation Date Name Description Value Unit Range Abnormal Flag Note LastModifiedBy Organization Detail LastModifiedTime 10/12/20 18 10/12/2018 urina lysis , dipst ick, auto Unknown Analyte Yellow Not Available Cu/ Urology [address] [facility], [place], [address], 10/12/2018 10:08:21 10/12/20 18 10/12/2018 urina lysis , dipst ick, auto Unknown Analyte Clear Not Available / Urology [facility] [address] [facility], [place], [address], 10/12/2018 10:08:21 10/12/20 18 10/12/2018 urina lysis , dipst ick, auto Unknown Analyte 1.005 Not Available / Urology [facility] [address] [facility], [place], [address], 10/12/2018 10:08:21 10/12/20 18 10/12/2018 urina lysis , dipst ick, auto Unknown Analyte 7.0 Not Available Cu/Lc Urology [address] [facility], [place], [address], 10/12/2018 10:08:21 10/12/20 18 10/12/2018 urina lysis , dipst ick, auto Unknown Analyte Negati ve Not Available Cu/Lc Urolo gy [address] [facility], [place], [address], 10/12/2018 10:08:21 10/12/20 18 10/12/2018 urina lysis , dipst ick, auto Unknown Analyte Negati ve Not Available Cu/Lc Urolo gy [address] [facility], [place], [address], 10/12/2018 10:08:21 10/12/20 18 10/12/2018 urina lysis , dipst ick, auto Unknown Analyte Negtiv e Not Available Cu/Lc Urolo gy [address] [facility], [place], [address], 10/12/2018 10:08:21 10/12/20 18 10/12/2018 urina lysis , dipst ick, auto Unknown Analyte Normal Not Available Cu/Lc Urology [address] [facility], [place], [address], 10/12/2018 10:08:21 10/12/20 18 10/12/2018 urina lysis , dipst ick, auto Unknown Analyte Negati ve Not Available Cu/Lc Urolo [facility] [address] [place], [address], 10/12/2018 10:08:21 10/12/20 18 10/12/2018 urina lysis , dipst ick, auto Unknown Analyte Normal Not Available Cu/Lc Urology [address] [place], [address], 10/12/2018 10:08:21 10/12/20 18 10/12/2018 urina lysis , dipst ick, auto Unknown Analyte Negati ve Not Available Cu/Lc Urolo [address] [place], [address], 10/12/2018 10:08:21 10/12/20 18 10/12/2018 urina lysis , dipst ick, auto Unknown Analyte Negati ve Not Available Cu/Lc Urolo gy [address] [facility], [place], [address], 10/12/2018 10:08:21 10/12/20 18 10/12/2018 urina lysis , dipst ick, auto Unknown Analyte Clean Catch Not Available Cu/Lc Urolo gy [address] [place], [address], 10/12/2018 10:08:21 10/12/20 18 10/12/2018 urina lysis , dipst ick, auto Unknown Analyte Visual Not Available Cu/Lc Urology [address] [facility], [place], [address], 10/12/2018 10:08:21 06/01/20 18 06/01/2018 urina lysis , dipst ick, auto Unknown Analyte Yellow Not Available Cu/Lc Urology [address] [place], [address], 06/01/2018 13:11:50 06/01/20 18 06/01/2018 urina lysis , dipst ick, auto Unknown Analyte Clear Not Available Cu/Lc Urology [address] [place], [address], 06/01/2018 13:11:50 06/01/20 18 06/01/2018 urina lysis , dipst ick, auto Unknown Analyte 1.005 Not Available Cu/Lc Urology [address] [place], [address], 06/01/2018 13:11:50 06/01/20 18 06/01/2018 urina lysis , dipst ick, auto Unknown Analyte 7.0 Not Available Cu/Lc Urology [address] [facility], [place], [address], 06/01/2018 13:11:50 06/01/20 18 06/01/2018 urina lysis , dipst ick, auto Unknown Analyte Negati ve Not Available Cu/Lc Urolo gy [address] [facility], [place], [address], 06/01/2018 13:11:50 06/01/20 18 06/01/2018 urina lysis , dipst ick, auto Unknown Analyte Negati ve Not Available Cu/Lc Urolo gy [address] [place], [address], 06/01/2018 13:11:50 06/01/20 18 06/01/2018 urina lysis , dipst ick, auto Unknown Analyte Trace Not Available Cu/Lc Urology [address] [facility], [place], [address], 06/01/2018 13:11:50 06/01/20 18 06/01/2018 urina lysis , dipst ick, auto Unknown Analyte Normal Not Available Cu/Lc Urology [facility] [address] [place], [address], 06/01/2018 13:11:50 06/01/20 18 06/01/2018 urina lysis , dipst ick, auto Unknown Analyte Negati ve Not Available Cu/Lc Urolo gy [address] [place], [address], 06/01/2018 13:11:50 06/01/20 18 06/01/2018 urina lysis , dipst ick, auto Unknown Analyte Normal Not Available Cu/Lc Urology [address] [place], [address], 06/01/2018 13:11:50 06/01/20 18 06/01/2018 urina lysis , dipst ick, auto Unknown Analyte Negati ve Not Available Cu/Lc Urolo gy [address] [facility], [place], [address], 06/01/2018 13:11:50 06/01/20 18 06/01/2018 urina lysis , dipst ick, auto Unknown Analyte Negati ve Not Available Cu/Lc Urolo gy [address] [facility], [place], [address], 06/01/2018 13:11:50 06/01/20 18 06/01/2018 urina lysis , dipst ick, auto Unknown Analyte Clean Catch Not Available Cu/Lc Urolo gy [address] [facility], [place], [address], 06/01/2018 13:11:50 06/01/20 18 06/01/2018 urina lysis , dipst ick, auto Unknown Analyte Automa latricia Not Available Cu/Lc Urolo gy [address] [facility], [place], [address], 06/01/2018 13:11:50 06/18/20 18 06/18/2018 cytol ogy, non-g yneco logic al, unspe cifie d speci men medical cytology procedure SEE BELOW Depar tment of Patho logy Medic al Cytol ogy Repor t NAME: TRUE, JONND A PATH. :NS-1 [id number] 11 Copie s to: SOURC E OF SPECI MEN: URINE , VOIDE D Volum e: 80 mL Color : Straw Fixed : N Blood y: N Clott ed: N Clear : Y CLINI NATY INFOR MATIO N: N 39.0 URINA RY FREQU ENCY Diagn osis: Urine , voide d, ThinP rep: Negat bal for bonnyshira GARDNER MD Mum d Out: 06/22 , 11:25 Page 1 of 1 Not Available [facility] [address] [place] [address], [address], 06/22/2018 11:27:04 06/18/20 18 06/18/2018 urina lysis , dipst ick, auto Unknown Analyte Yellow Not Available [facility] Schedule [address] [place], [address], 06/18/2018 12:28:19 06/18/20 18 06/18/2018 urina lysis , dipst ick, auto Unknown Analyte Clear Not Available [facility] Surgery Schedule [address] [place], [address], 06/18/2018 12:28:19 06/18/20 18 06/18/2018 urina lysis , dipst ick, auto Unknown Analyte 1.015 Not Available [facility] Surgery Schedule [address] [place] [address], [address], 06/18/2018 12:28:19 06/18/20 18 06/18/2018 urina lysis , dipst ick, auto Unknown Analyte 9.0 Not Available [facility] Surgery Schedule [address] [place] [address], [address], 06/18/2018 12:28:19 06/18/20 18 06/18/2018 urina lysis , dipst ick, auto Unknown Analyte 25 Jia/ul Trace Not Available [facility] Surgery Schedule [facility] [place], [address], 06/18/2018 12:28:19 06/18/20 18 06/18/2018 urina lysis , dipst ick, auto Unknown Analyte Negati ve Not Available [facility] Surgery Schedule [address] [place] [address], [address], 06/18/2018 12:28:19 06/18/20 18 06/18/2018 urina lysis , dipst ick, auto Unknown Analyte Negtiv e Not Available [facility] Surgery Schedule [facility] [place], [address], 06/18/2018 12:28:19 06/18/20 18 06/18/2018 urina lysis , dipst ick, auto Unknown Analyte Normal Not Available [facility] Surgery Schedule [address] [place] [address], [address], 06/18/2018 12:28:19 06/18/20 18 06/18/2018 urina lysis , dipst ick, auto Unknown Analyte Negati ve Not Available [facility] Surgery Schedule [address] [place], [address], 06/18/2018 12:28:19 06/18/20 18 06/18/2018 urina lysis , dipst ick, auto Unknown Analyte Normal Not Available [facility] Surgery Schedule [address] [place], [address], 06/18/2018 12:28:19 06/18/20 18 06/18/2018 urina lysis , dipst ick, auto Unknown Analyte Negati ve Not Available [facility] Surgery Schedule [address] [place] [address], [address], 06/18/2018 12:28:19 06/18/20 18 06/18/2018 urina lysis , dipst ick, auto Unknown Analyte Negati ve Not Available [facility] Surgery Schedule [address] [place], [address], 06/18/2018 12:28:19 06/18/20 18 06/18/2018 urina lysis , dipst ick, auto Unknown Analyte Clean Catch Not Available [facility] Surgery Schedule [address] [place], [address], 06/18/2018 12:28:19 06/18/20 18 06/18/2018 urina lysis , dipst ick, auto Unknown Analyte Automa latricia Not Available [facility] Surgery Schedule [address] [place], [address], 06/18/2018 12:28:19 06/18/20 18 06/18/2018 US, retro perit oneum , limit ed [address] [address] [place] Name: JENIFFER lion : [birth year] [...] Umberto Grajeda MD on 06/18/20 10:[address] Radiology [address], [address], 06/18/2018 10:26:48 06/18/20 18 06/18/2018 XR, abdom en, [address] [address] Angelo t Name: JENIFFER lion : [birth year] [...] Umberto Grajeda MD on 06/18/20 11:[address] Rad[address], [address], 06/19/2018 10:14:31 Result Notes Documentation Provider Name and Address Organization Details Recorded Time Xr, Abdomen, 1 View : [address] [address] Patient Name: JENIFFER MOURA Patient : [id number] Patient Ordering Provider: MONSTER IBARRA EXAM DATE: 06/18/2018 EXAM: XR ABDOMEN KUB CLINICAL INFORMATION: Abdominal pain. UTIs IMAGES PROVIDED: KUB AP radiographic images of the abdomen. COMPARISON: None. FINDINGS: No abnormal intestinal gas pattern. No abnormal calcifications are seen. No radiographic evidence of free intraperitoneal air. IMPRESSION: Normal x-ray abdomen KUB. Interpreted By: Umberto Grajeda MD TER IBARRA MD [address] [place] [address], [address], [facility] 06/19/2018 10:14:31 Procedures Surgical History Date Name Laterality Status Provider Name and Address Organization Details Recorded Time 10/12/20 18 Post Void Residual; Ultrasound completed [facility] 10/12/2018 10:28:20 06/01/20 18 Post Void Residual; Ultrasound completed [facility] 06/01/2018 13:13:10 delivery completed [facility] 06/01/2018 13:09:15 Hysterectomy completed [facility] 06/01/2018 13:09:22 Imaging Results None recorded. Procedure Notes None recorded. Medical Equipment None [...] Updated DateTime 06/01/2018 157.48 cm 31.1 kg/m2 13294.7 g 132 mm[Hg] 82 mm[Hg] Mattie Erickson [facility] 8 13:07:38 Date Recorded Body height Body mass index (BMI) Body weight Systolic blood pressure Diastolic blood pressure Provider Name and Address Organization Details Last Updated DateTime 10/12/2018 157.48 cm 31.1 kg/m2 70229.7 g 128 mm[Hg] 80 mm[Hg] Mattie Erickson [facility] 8 10:07:58 Social History Question Answer Notes LastModified by [employer] Details LastModified Time Tobacco Smoking Status Never Smoker Mattie Erickson [facility] 06/01/2018 13:08:45 Marital Status Informatio n not available 06/01/2018 What Was The Date Of Your Most Recent Tobacco Screening? 10/12/2018 Information n ot available 01/04/2020 Sex: Unknown Functional Status Question Answer Note LastModified by [employer] Details LastModified Time What is your level [...] SNOMED-CT Code Diagnosis ICD10 Code Diagnosis Note [id number] MONSTER IBARRA MD UROLOGY [facility] [address] [facility] [place] [address] 06/01/2018 12:25:23 06/02/2018 14:45:17 Increased frequency of urination 498749484 R35.0 Urinary tr act infectious disease 37068695 N39.0 Cystocele 601705701 N81. 10 [id number] MONSTER IBARRA MD SURGERY SCHEDULE [address] [place] [address] 06/18/2018 10:16:07 06/18/2018 10:23:15 [id number] MONSTER IBARRA MD UROLOGY [facility] [address] [place] [address] 10/12/2018 09:30:48 10/13/2018 13:25:30 Cystocele 979378017 N81.10 Health Concerns Section Related Observation LastModified by Organization Detai ls LastModified Time None Recorded Concern Status LastModified by Organization Details LastModified Time None Recorded Advance Directives Directive None Recorded Payers Insurance Date Sequence Insurance Name Policy Number Policy Vernon Covered Member ID Vernon Member ID Guarantor Name 10/11/2020 1 [facility] [id number] Jeniffer Moura [id number] Jeniffer Moura 03/27/2021 PAYMENT PLAN Jeniffer Moura Notes Date Note Type Note Provider Name [...] complaints or concerns today. MONSTER IBARRA MD [address] [place], [address], [facility] 06/01/2018 13:39:11 10/12/2018 text/html 58 yo female her e today for follow up with possible bladder prolapse. She is s/p normal cysto on 06/18/2018. She has no complaints or concerns today. She denies any dysuria or gross hematuria. MONSTER IBARRA MD [address] [place], [address], [facility] 10/12/2018 10:30:05 OBGyn Episode No OBEpisode recorded.
[2025-05-12 13:33] VITALS: BP 125/69; PULSE 66; RESP 16; TEMP 36.6; O2SAT 98
[2025-05-12] MEDS: IRON SUCROSE COMPLEX 200 MG in 0.9 % SODIUM CHLORIDE 100 ML 220 MG IV (13:33)
[2025-05-12] MEDS: SODIUM CHLORIDE 0.9% 10ML FLUSH SYRINGE 10 ML IV (13:33)
[2025-05-12] MEDS: SODIUM CHLORIDE 0.9% 50ML BAG 50 ML IV (13:33)
[2025-05-12 14:15] VITALS: BP 119/72; PULSE 66; RESP 14; TEMP 36.6; O2SAT 98
== END 2025-05-12 14:25 | disposition home or self-care (01) ==
LOC: INF 13:13
PROVIDERS: PCP Nurse Practitioner Family; Visit Provider Nurse Practitioner Family
DX: D50.9 Iron deficiency anemia, unspecified (principal)
CPT/HCPCS: 96365; J1756

== ENCOUNTER 2025-05-19 13:26 | Outpatient (CLI) | payer MEDICARE, SELFPAY ==
--- OUTSIDE RECORDS SUMMARY | 2024-09-17 07:15 | XMS_ITS ---
Author Organization [facility] Address [address] [place] [id number] Care Team Providers Care Display Carver Name Role Phone [place] Primary Care Provider Results Component Value Reference Range Notes H-Occult [...] 30 day(s) Active Vitamin D3 250 MCG (82770 UT) 1 cap(s) o rally once a [...] Active Vitamin D (Ergocalciferol) 1 .25 MG (40558 UT) 1 cap(s) orally once a week Active Immunizations Vaccine Route Administration Date Status Comme nts Fluzone Quad (6months&older) IM Intramuscular 09/17/2024 Administered Problems Problem Type SNOMED Code ICD Code Onset Dates Problem Status W/U Status Risk Notes Problem Anemia (192052168) Anemia, unspecified type (D64.9) Active confirmed Encounters Encounter Location Date Provider Diagnosis [facility] [address] [facility] [address] [place] [phone] 09/17/2024 Jamie Chahal Encounter for immunization Z23 and Anemia, unspecified type D64.9 Assessments Encounter Date Diagnosis (ICD Code) Assessment Notes Treatment Notes Treatment Clinical Notes Section Notes 09/17/2024 Encounter for immunization (ICD-10 - Z23) 09/17/2024 Anemia, unspecified type (ICD-10 - D64.9) Plan Of Treatment Next Appt Details Follow Up: 2 Weeks, Reason: Progress Notes * MARTELLJONGUILHERMEB:1960 ( 65 yo F)Acc No.[id number]:09/17/2024 Patient: JENIFFER PETERSON Provider: Marnie hCahal M.D. :1960 A ge:64 Y S ex:Female Date:09/17/2024 Address:[address] [place] [address] [id number] Subjective: * Chief Complaints: [...] , Taking Vitamin D (Ergocalciferol) 1.25 MG (30278 UT) Capsule 1 cap(s) orally once a week , Taking Aspirin 81 MG Tablet Chewable 1 tab(s) chewed once a day , Taking Vitamin D3 250 MCG (40496 UT) Capsule 1 cap(s) orally once a [...] Electronic signature of Brooke Chahal MD on 05/19/2025 at 01:30 PM EDT Sign off status: Pending * Provider: Marnie Chahal M.D. Date: 11/17/2023 Generated for Luisa pizarro/Nolan/Marcela on: 0 05/19/2025 01:30 PM EDT
--- OUTSIDE RECORDS SUMMARY | 2024-10-01 07:15 | XMS_ITS ---
Author Organization [facility] Address [address] [place] [id number] Care Team Providers Care Gill Net Stringer Name Role Phone Jamie Chahal Primary Care Provider [phone] Allergies Allergen (clinical drug ingredient) Drug/Non Drug [...] Interpretation:Normal Performing Lab: Notes/Report: Test performed by [employer] [address] [place] [address] , [address], [place] [address] Johnny Smith MD, Customizer CLIA: [id number] Vitamin B12 2227 285-1933 pg/mL P-Basic Metabolic Panel (BMP ) Reviewed date:10/04/2024 11:01:01 AM Interpretation:Creat 1.10, eGFR 56 Performing Lab: Notes/Report: Test performed by [employer] [address] [facility], [place] [address] Johnny Smith MD, Customizer CLIA: [id number] Sodium 139 135-145 mmol/L Potassium 4.7 3.5-5.3 mmol/L Chloride 103 97-108 mmol/L CO2 24 22-32 mmol/L Glucose 89 65-99 mg/dL BUN 20 8-23 mg/dL Creatinine 1.10 0.50-1.00 mg/dL Calcium 9.5 8.6-10.4 mg/dL eGFR by Creatinine 56 >59 mL/min/1.73m2 P-Iron with Transferrin Satu ration Reviewed date:10/04/2024 11:01:01 AM Interpretation:Transferrin 375, Trans Sat 12% Performing Lab: Notes/Report: Test performed by [employer] [address] , [place] [address] Johnny Smith MD, Customizer CLIA: [id number] Iron 65 37-145 ug/dL Transferrin 375 200-360 mg/dL Transferrin Saturation Percentage 12 15-50 % P-Phosphorus Reviewed date:10/04/2024 11:01:01 AM Interpretation:Normal Performing Lab: Notes/Report: Test performed by [employer] [address] [place] [address], [place] [address] Johnny Smith MD, Customizer CLIA: [id number] Phosphorus 4.1 2.5-4.5 mg/dL P-Parathyroid Hormone (PTH) Intact Reviewed date:10/04/2024 11:01:01 AM Interpretation:Normal Performing Lab: Notes/Report: Test performed by [employer] [address] , [place] [address] Johnny Smith MD, Customizer CLIA: [id number] Parathyroid Hormone (PTH) Intact 40.9 15.0-65. 0 [...] Active Vitamin D (Ergocalciferol) 1 .25 MG (93150 UT) 1 cap(s) orally once a week Active Spironolactone 25 MG 1 tab(s) orally onc e a day; Duration: 30 day(s) Active Vitamin D3 250 MCG (00196 UT) 1 cap(s) o rally once a week 09/02/2022 Active Vital Signs Blood pressure systolic 130 mm Hg 10/01/20 24 Blood pressure diastolic 72 mm Hg 024 Heart Rate 61 /min 10/01/2024 Height 62 in 10/01/2024 Weight 188 lbs 10/01/2024 BMI 34.38 kg/m2 10/01/2024 Encounters Encounter Location Date Provider Diagnosis [facility] [address] [place] [id number] 10/01/2024 Jamie Chahal Renal insufficiency N28.9 ; [...] Omeprazole 40 MG [facility] for 90 days Next Appt Details Follow Up: via phone to repo rt test results, Reason: Progress Notes * TRUE, JONNDADOB:1960 ( 65 yo F)Acc No.[id number]:10/01/2024 Progress Notes Patient: JENIFFER PETERSON Provider: Marnie Chahal M.D. :1960 A ge:64 Y S ex:Female Date:10/01/2024 Address:[address] [place], [place] [address] [id number] Subjective: * Chief Complaints: * 1 . [...] Diagno stic Procedure: S yncope- [facility] ER 11/03/2020, Syncope, Anemia- H 01/14-01/16/2021, Migraine [...] , Taking Vitamin D (Ergocalciferol) 1.25 MG (14485 UT) Capsule 1 cap(s) orally once a week , Taking Aspirin 81 MG Tablet Chewable 1 tab(s) chewed once a day , Taking Vitamin D3 250 MCG (98295 UT) Capsule 1 cap(s) orally once a [...] AM)?Normal* Value Reference Range V itamin B12 4225 607-3141 - pg/mL * AlecMarina 10/04/2024 11: 00:49 [...] G 2211 Complex e/[place], [address] CBC WITH AUTO DIFF * Follow Up: v ia phone to report test results * Images: Billing Information: * Visit Code: 95956 Office Visit, Est Pt., Level 4. * Procedure Codes: G2211 Complex e/[place]. [address] CBC WITH AUTO DIFF. * Electronic signature of Brooke Chahal MD on 05/19/2025 at 01:29 PM EDT Sign off status: Pending * Provider: Marnie Chahal M.D. Date: 1 12/01/2023 Generated for Luisa pizarro/Nolan/eTransmitting on: 0 05/19/2025 01:29 PM EDT History and Physical Notes * [...]
--- OUTSIDE RECORDS SUMMARY | 2025-01-10 07:00 | XMS_ITS ---
Author Organization [facility] Address [address] [facility] [address] [place] [id number] Care Team Providers Care Rn Testing Name Role Phone Jamie Chahal Primary Care Provider REASON FOR VISIT 6 month f/u Encounters Encounter Location Date Provider Diagnosis [facility] [address] [place] [id number] 01/10/2025 Jamie Chahal Plan Of Treatment No Information Progress Notes * YASH MOURAB:1960 ( 65 yo F)Acc No.[id number]:01/10/2025 Progress Notes Patient: JENIFFER PETERSON Provider: Marnie [...] 01/10/2025 Generated for Printi ng/Faxing/eTransmitting on: 0 05/19/2025 01:29 PM EDT
--- OUTSIDE RECORDS SUMMARY | 2025-05-19 13:29 | XMS_ITS | Patient Health Record ---
Author Organization [facility] [address] [place] [id number] Care Team Providers Care Care Coordination Manager Name Role Phone Kings Chahalian Primary Care Provider [phone] Allergies Allergen (clinical drug ingredient) Drug/Non Drug Allergy documented on EMR Reaction Allergy Type Onset Date Status dexamethasone Dexamethasone Unknown Drug Allergy Active triamcinolone Triamcinolone Unknown Drug Allergy Active Results Component Value Reference Range Notes P-Parathyroid Hormone (PTH) Intact Reviewed date:10/04/2024 11:01:01 AM Interpretation:Normal Performing Lab: Notes/Report: Test performed by [facility] [address] [place] [address] , [place] [address] Johnny Smith MD, [employer] CLIA: [id number] Parathyroid Hormone (PTH) Intact 40.9 15.0-65.0 pg/mL P-Phosphorus Reviewed date:10/04/2024 11:01:01 AM Interpretation:Normal Performing Lab: Notes/Report: Test performed by [facility] [address] [place], [place] [address] [address] Johnny Smith MD, [employer] CLIA: [id number] Phosphorus 4.1 2.5-4.5 mg/dL P-Iron with Transferrin Satu ration Reviewed date:10/04/2024 11:01:01 AM Interpretation:Transferrin 375, Trans Sat 12% Performing Lab: Notes/Report: Test performed by [facility] [address] [place] [address] Natty Mck[place], [address], [place] [address] Johnny Smith MD, [employer] CLIA: [id number] Iron 65 37-145 ug/dL Transferrin 375 200-360 mg/dL Transferrin Saturation Percentage 12 15-50 % P-Basic Metabolic Panel (BMP ) Reviewed date:10/04/2024 11:01:01 AM Interpretation:Creat 1.10, eGFR 56 Performing Lab: Notes/Report: Test performed by [facility] [address] [place] [address] , [place] [address] Johnny Smith MD, [employer] CLIA: [id number] Sodium 139 135-145 mmol/L Potassium 4.7 3.5-5.3 mmol/L Chloride 103 97-108 mmol/L CO2 24 22-32 mmol/L Glucose 89 65-99 mg/dL BUN 20 8-23 mg/dL Creatinine 1.10 0.50-1.00 mg/dL Calcium 9.5 8.6-10.4 mg/dL eGFR by Creatinine 56 >59 mL/min/1.73m2 P-Vitamin B12 Reviewed date:10/04/2024 11:01:01 AM Interpretation:Normal Performing Lab: Notes/Report: Test performed by [facility] [address] [place] [address] , [address], [place] [address] Johnny Smith MD, [employer] CLIA: [id number] Vitamin B12 8315 179-0948 pg/mL CBC Venipuncture (in house) Reviewed date:10/04/2024 [...] 38 platlet 441 100 - 400 P-Vitamin D 25-Hydroxy Reviewed date:07/13/2024 09:54:17 AM Interpretation:36.8 Performing Lab: Notes/Report: Test performed by [facility] [address] [place] [address] , [address], [place] [address] Johnny Smith MD, [employer] CLIA: [id number] Vitamin D 25-Hydroxy 36.8 30.0-100.0 ng/mL Interpretation of Vitamin D 25 OH: < 20 ng/mL - Deficiency 20 - 29 ng/mL - Insufficiency 30 - 100 ng/mL - Sufficiency > 100 ng/mL - Super-therapeutic- toxicity may occur above this level. Clinical correlation required. P-Microalbumin/Creatinine, R andom Urine Sample Reviewed date:07/13/2024 09:54:17 AM Interpretation:satisfactory Performing Lab: Notes/Report: Test performed by [facility] [address] [place] [address] , [address], [place] [address] Johnny Smith MD, [employer] CLIA: [id number] Albumin/Creatinine Ratio, Urine See Comment 0-30 ug/mg Unable to calculate Urine Albumin/Creatinine Ratio when urine creatinine or urine albumin fall outside established reportable range. Microalbumin, Urine, Random <0.3 Creatinine, Urine 59.4 P-TSH Reviewed date:07/13/2024 09:54:17 AM Interpretation: Normal Performing Lab: Notes/Report: Test performed by [facility] [address] [place] [address] , [address], [place] [address] Johnny Smith MD, [employer] CLIA: [id number] TSH 0.65 0.43-5.25 mU/L P-Lipid Panel Reviewed date:07/13/2024 09:54:17 AM Interpretation: Normal Performing Lab: Notes/Report: Test performed by [facility] [address] [place] [address] , [address], [place] [address] Johnny Smith MD, [employer] CLIA: [id number] Cholesterol 135 <200 mg/dL Triglycerides 79 <150 [...] Results: 63 Units: mg/dL % Change: - P-T4 Free (thyroxine) Reviewed date:07/13/2024 09:54:17 AM Interpretation: Normal Performing Lab: Notes/Report: Test performed by [facility] [address] [place] [address] [place] [address] Johnny Smith MD, [employer] CLIA: [id number] Thyroxine Free (free T4) 1.48 0.86-1.76 ng/dL P-Comprehensive Metabolic Pa bryce (CMP) Reviewed date:07/13/2024 09:54:17 AM Interpretation:gluc 102, Cr 1.11, gfr 56 Performing Lab: Notes/Report: Test performed by [facility] [address] [place] [address] [place] [address] Johnny Smith MD, [employer] CLIA: [id number] Sodium 138 135-145 mmol/L Potassium 4.8 3.5-5.3 [...] 0.4 <0.2-1.2 mg/dL A/G Ratio 1.8 1.1-2.5 Glycohemoglobin A1c (in hous e) Reviewed date:07/13/2024 09:54:17 AM Interpretation:5.8% Normal Performing Lab: Notes/Report: 5.8% Normal glycohemoglobin 5.8% 5 - 6.5 % Glucose (In-House) Reviewed date:07/13/2024 09:54:17 AM Interpretation:136 Performing Lab: Notes/Report: 136 blood glucose 136 74 - 106 mg/dL H-Occult Blood, Stool Reviewed date:09/20/2024 03:49:50 PM Interpretation: Negative Performing Lab: Notes/Report: OB Negative Negative Reason For Referral No Information Medications Medication [...] 30 days Active Vitamin D3 250 MCG (44922 UT) 1 cap(s) o rally once a week 09/02/2022 Active Folic Acid 1 MG 1 tab(s) orally once a day; Duration: 30 days Active Aspirin 81 MG 1 tab(s) chewed once a day; Duration: 30 day(s) Active Vitamin D (Ergocalciferol) 1 .25 MG (60070 UT) 1 cap(s) orally once a week [...] Comme nts Fluzone Quad (6months&older) IM Intramuscular 08/20/2022 Administered Fluzone Quad (6months&older) IM Intramuscular 09/17/2024 Administered Fluzone PF Quad (6-35 months) Unknown 10/12/2021 Administered COVID 19 Moderna Unknown 11/16/2020 Administered COVID 19 Moderna Unknown 12/18/2020 Administered COVID 19 Moderna Unknown 11/05/2021 Administered Problems Problem Type SNOMED Code ICD Code Onset Dates Problem Status W/U Status Risk Notes Problem Essential hypertension (01495054) Essential (primary) hypertension (I10) Active confirmed Problem Type 2 diabetes mellitus (26646623) Type 2 diabetes mellitus (E11.9) Active confirmed Problem Vitamin D deficiency (55763863) Vitamin D deficiency (E55.9) Active confirmed Problem Essential hypertension (26943761) Essential hypertension (I10) Active confirmed Problem Unstable angina (5085434) Unstable angina (I20.0) Active confirmed Problem Carotid artery occlusion (611692263) Occlusion and stenosis of unspecified carotid artery (I65.29) Active confirmed Problem Chronic maxillary sinusitis (09683079) Chronic maxillary sinusitis (J32.0) Active confirmed Problem Sciatica (21569341) Lumbago with sciatica, left side (M54.42) Active confirmed Problem Chronic pain (46596575) Other chronic pain (G89.29) Active confirmed Problem Restless legs (14590584) Restless leg (G25.81) Active confirmed Problem Acquired hypothyroidism (573074921) Acquired hypothyroidism (E03.9) Active confirmed Problem Atherosclerotic hear t disease of kaw coronary artery without angina pectoris (176904202031832) Coronary artery disease involving kaw coronary artery of kaw heart without angina pectoris (I25.10) Active confirmed Problem Gastroesophageal reflux disease (118360467) Gastroesophageal reflux disease, esophagitis presence not specified (K21.9) Active confirmed Problem Migraine (42580377) Migraine wit hout status migrainosus, not intractable, unspecified migraine type (G43.909) Active confirmed Problem Anemia (356137826) Anemia, unspe cified type (D64.9) Active confirmed Problem Hyperlipidaemia (92656022) Hyperlipidemia, unspecified hyperlipidemia type (E78.5) Active confirmed Problem Hypothyroidism (57709749) Hypothyroidism, unspecified type (E03.9) Active confirmed Problem Stented coronary artery (175887067) Stented coronary artery (Z95.5) Active confirmed Problem Impaired fasting glycaemia (117167099) IFG (impaired fasting glucose) (R73.01) Active confirmed Problem Atherosclerotic hear t disease of kaw coronary artery without angina pectoris (417337333427467) Atherosclerosis of kaw coronary artery without angina pectoris, unspecified whether kaw or transplanted heart (I25.10) Active confirmed Problem Pure hypercholesterolemia (385706046) Pure hypercholesterolemia (E78.00) Active confirmed Problem Angina co-occurrent and due to coronary arteriosclerosis (73837349834077528) Coronary artery disease of kaw artery of kaw heart with stable angina pectoris (I25.118) Active confirmed Problem Carotid artery occlusion (959637798) Stenosis of carotid artery, unspecified laterality (I65.29) Active confirmed Problem Obesity (045322514) Non morbid o besity (E66.9) Active confirmed Problem History of placement of stent for coronary artery disease (situation) (645157229) S/P coronary artery stent placement (Z95.5) Active confirmed Problem Seasonal allergic rhinitis (267139293) Seasonal allergic rhinitis, unspecified trigger (J30.2) Active confirmed Problem Angina co-occurrent and due to coronary arteriosclerosis (96135170610362111) Coronary artery disease involving kaw coronary artery of kaw heart with other form of angina pectoris (I25.118) Active confirmed Vital Signs Heart Rate 61 /min 10/01/2024 Blood pressure diastolic 72 mm Hg 10/01/2024 Height 62 in 10/01/2024 Blood pressure systolic 130 mm Hg 10/01/2024 Weight 188 lbs 10/01/2024 BMI 34.38 kg/m2 10/01/2024 Encounters Encounter Location Date Provider Diagnosis [facility] [address] [place], [place] [id number] 07/12/2024 Jamie [place] Essential hypertensi on I10 ; Pure hypercholesterolemia E78.00 ; Type 2 diabetes mellitus E11.9 ; Acquired hypothyroidism E03.9 ; Vitamin D deficiency E55.9 and Gastroesophageal reflux disease, esophagitis presence not specified K21.9 [facility] [address] [place], [place] [id number] 09/17/2024 Jamie [place] Encounter for immuni zation Z23 and Anemia, unspecified type D64.9 [facility] [address] [facility] [address] [place], [place] [id number] 10/01/2024 Jamie [place] Renal insufficiency N28.9 ; Anemia, unspecified type D64.9 ; Gastroesophageal reflux disease, esophagitis presence not specified K21.9 and Essential hypertension I10 [facility] [address] [place], [place] [id number] 07/13/2024 Jamie [place] [facility] [address] [place], [place] [id number] 10/04/2024 Jamie [place] [facility] [address] [facility] [address] [place], [place] [id number] 2025 Jamie [place] [facility] [address] [facility] [address] [place] [id number] 06/13/2024 Jamie [place] Assessments Encounter Date Diagnosis (ICD Code) Assessment [...] Date [employer] (MEDICAR E) [address] [address] [place] [address] [id number] Self - patient is the insured [...] x2 01/2021 Hospitalization History Reason Date(Month/Year) Syncope- [facility] ER 11/03/2020 Syncope, Anemia- [facility] 01/14-01/16/2021 Migraine 07/01/2021
--- OUTSIDE RECORDS SUMMARY | 2025-05-19 13:29 | XMS_ITS | Clinical Summary ---
Author Organization Healthcare Address [address] [place] [address] Care Team Providers Care Firer Automatic Stoker Name Role Phone Jamie Chahal MD Primary Care Provider [phone] Social History Tobacco Use Types Packs/Day Years Used Date Smoking Tobacco: Never Assessed Comments Unknown Sex and Gender Information Value Date Recorded Sex Assigned at Not on file Legal Sex Female 6:48 PM EDT Gender Identity Not on file Sexual Orientation Not on file Plan of Treatment Health Maintenance Due Date Last Done Comments [facility]-Depression Screening 1961 [facility]-Infant/Child/Adol SDOH Screenings 1961 [facility]- SDOH Screenings 1979 [facility]-Adult SDOH Screenings 1979 [facility]-DTaP,Tdap,and Td Vaccine s (1 - Tdap) 1980 [facility]-Pap Smear 1982 [facility]-Cervical Cancer Screening 1991 [facility]-HPV/Cotest 1991 CT Colonography 2006 Colonoscopy 2006 FIT-DNA 2006 FIT 2006 FOBT 2006 Sigmoidoscopy 2006 [facility]-Colorectal Cancer Screening 2006 [facility]-Pneumococcal Vaccine: 50 + Years (1 of 1 - PCV) 2011 [facility]-Zoster Vaccines (1 of 2) 2011 [facility]-LBNBU-30 Vaccine (4 - season) 2024 11/05/2021, 12/18/2020, 11/16/2020 [facility]-Influenza Vaccine (#1) 2025 10/12/2021 [facility]-RSV Vaccine: 60+ Years o [...] patient's age to complete [place] [id number] ANTH Care Teams Firer Automatic Stoker Relationship Specialty Start Date End Date Jamie Chahal MD [address] [facility] [address] [place] [address] PCP - General 03/30/21
--- OUTSIDE RECORDS SUMMARY | 2025-05-19 13:30 | XMS_ITS | Data Portability ---
Author Organization ABEL Sch[facility] Address [address] [place] [address] Assessment Encounter Date Assessment Date Assessment LastModified [...] ysis, dipsti ck, auto 018 10/12/20 18 Cu/Lc Urology Angelica Lozano, [facility] Angelica Lozano, [place], [address], 8 10:28:36 urinal ysis, dipsti ck, auto 018 06/01/20 18 Cu/ Urology [facility], [address] [facility], [place], [address], 8 13:39:07 Referral None record ed. Procedures None record ed. Surgeries None record ed. Imaging None record ed. Medication Orders None record ed. Patient TargetsNo targets recorded. Patient Instructions Encounter Date Encounter Id Patient Instructions Last Modified By Organization Details Last Modified Time 06/01/2018 [id number] Urinary Tract Infection (UTI) in Women: Care Instructions [email or web address] Not available 06/01/2018 13:39:07 KUB/renal US/ cysto/exam to eval cystocele and sxs. [email or web address] Not available 06/01/2018 13:31:01 10/12/2018 [id number] DOing well. rtc prn. Not available 10/12/2018 10:23:59 Reason for Referral None Reported. Results Created Date Observation Date Name Description Value Unit Range Abnormal Flag Note LastModifiedBy Organization Detail LastModifiedTime 10/12/20 18 10/12/2018 urina lysis , dipst ick, auto Unknown Analyte Yellow Not Available Cu/ Urology [address] [facility], [place], [address], 10/12/2018 10:08:21 10/12/20 18 10/12/2018 urina lysis , dipst ick, auto Unknown Analyte Clear Not Available / Urology [facility] [address] [facility], [place], [address], 10/12/2018 10:08:21 10/12/20 18 10/12/2018 urina lysis , dipst ick, auto Unknown Analyte 1.005 Not Available / Urology [facility] [address] [facility], [place], [address], 10/12/2018 10:08:21 10/12/20 18 10/12/2018 urina lysis , dipst ick, auto Unknown Analyte 7.0 Not Available Cu/Lc Urology [address] [facility], [place], [address], 10/12/2018 10:08:21 10/12/20 18 10/12/2018 urina lysis , dipst ick, auto Unknown Analyte Negati ve Not Available Cu/Lc Urolo gy [address] [facility], [place], [address], 10/12/2018 10:08:21 10/12/20 18 10/12/2018 urina lysis , dipst ick, auto Unknown Analyte Negati ve Not Available Cu/Lc Urolo [facility] [address] [facility], [place], [address], 10/12/2018 10:08:21 10/12/20 18 10/12/2018 urina lysis , dipst ick, auto Unknown Analyte Negtiv e Not Available Cu/Lc Urolo [facility] [address] [facility], [place], [address], 10/12/2018 10:08:21 10/12/20 18 10/12/2018 urina lysis , dipst ick, auto Unknown Analyte Normal Not Available Cu/Lc Urology [address] [facility], [place], [address], 10/12/2018 10:08:21 10/12/20 18 10/12/2018 urina lysis , dipst ick, auto Unknown Analyte Negati ve Not Available Cu/Lc Urol[facility] [address] [place], [address], 10/12/2018 10:08:21 10/12/20 18 10/12/2018 urina lysis , dipst ick, auto Unknown Analyte Normal Not Available Cu/Lc Urology [address] [place], [address], 10/12/2018 10:08:21 10/12/20 18 10/12/2018 urina lysis , dipst ick, auto Unknown Analyte Negati ve Not Available Cu/Lc Urol[facility] [address] [place], [address], 10/12/2018 10:08:21 10/12/20 18 10/12/2018 urina lysis , dipst ick, auto Unknown Analyte Negati ve Not Available Cu/Lc Urolo [address] [facility], [place], [address], 10/12/2018 10:08:21 10/12/20 18 10/12/2018 urina lysis , dipst ick, auto Unknown Analyte Clean Catch Not Available Cu/Lc Urolo [address] [place], [address], 10/12/2018 10:08:21 10/12/20 18 10/12/2018 urina lysis , dipst ick, auto Unknown Analyte Visual Not Available Cu/Lc Urology [address] [facility], [place], [address], 10/12/2018 10:08:21 06/01/20 18 06/01/2018 urina lysis , dipst ick, auto Unknown Analyte Yellow Not Available Cu/Lc Urology [address] [place], [address], 06/01/2018 13:11:50 06/01/20 18 06/01/2018 urina lysis , dipst ick, auto Unknown Analyte Clear Not Available Cu/Lc Urology [address] [place], [address], 06/01/2018 13:11:50 06/01/20 18 06/01/2018 urina lysis , dipst ick, auto Unknown Analyte 1.005 Not Available Cu/Lc Urology [address] [place], [address], 06/01/2018 13:11:50 06/01/20 18 06/01/2018 urina lysis , dipst ick, auto Unknown Analyte 7.0 Not Available Cu/Lc Urology [address] [facility], [place], [address], 06/01/2018 13:11:50 06/01/20 18 06/01/2018 urina lysis , dipst ick, auto Unknown Analyte Negati ve Not Available Cu/Lc Urolo [facility] [address] [facility], [place], [address], 06/01/2018 13:11:50 06/01/20 18 06/01/2018 urina lysis , dipst ick, auto Unknown Analyte Negati ve Not Available Cu/Lc Urolo [address] [place], [address], 06/01/2018 13:11:50 06/01/20 18 06/01/2018 urina lysis , dipst ick, auto Unknown Analyte Trace Not Available Cu/Lc Urology [address] [facility], [place], [address], 06/01/2018 13:11:50 06/01/20 18 06/01/2018 urina lysis , dipst ick, auto Unknown Analyte Normal Not Available Cu/Lc Urology [facility] [address] [place], [address], 06/01/2018 13:11:50 06/01/20 18 06/01/2018 urina lysis , dipst ick, auto Unknown Analyte Negati ve Not Available Cu/Lc Urolo [address] [place], [address], 06/01/2018 13:11:50 06/01/20 18 06/01/2018 urina lysis , dipst ick, auto Unknown Analyte Normal Not Available Cu/Lc Urology [address] [place], [address], 06/01/2018 13:11:50 06/01/20 18 06/01/2018 urina lysis , dipst ick, auto Unknown Analyte Negati ve Not Available Cu/Lc Urolo [address] [facility], [place], [address], 06/01/2018 13:11:50 06/01/20 18 06/01/2018 urina lysis , dipst ick, auto Unknown Analyte Negati ve Not Available Cu/Lc Urolo [facility] [address] [facility], [place], [address], 06/01/2018 13:11:50 06/01/20 18 06/01/2018 urina lysis , dipst ick, auto Unknown Analyte Clean Catch Not Available Cu/Lc Urolo [facility] [address] [facility], [place], [address], 06/01/2018 13:11:50 06/01/20 18 06/01/2018 urina lysis , dipst ick, auto Unknown Analyte Automa latricia Not Available Cu/Lc Urolo gy [address] [facility], [place], [address], 06/01/2018 13:11:50 06/18/20 18 06/18/2018 cytol ogy, [...] rep: Negat bal for bonnyshira GARDNER MD Umm d Out: 06/22 , 11:25 Page 1 of 1 Not Available [facility] [address] [place] [address], [address], 06/22/2018 11:27:04 06/18/20 18 06/18/2018 urina lysis , dipst ick, auto Unknown Analyte Yellow Not Available [facility] Surgery Schedule [address] [place], [address], 06/18/2018 12:28:19 06/18/20 18 06/18/2018 urina lysis , dipst ick, auto Unknown Analyte Clear Not Available [facility] Surgery Schedule [address] [place], [address], 06/18/2018 12:28:19 06/18/20 18 06/18/2018 urina lysis , dipst ick, auto Unknown Analyte 1.015 Not Available [facility] Surgery Schedule [address] [place] [address], [address], 06/18/2018 12:28:19 06/18/20 18 06/18/2018 urina lysis , dipst ick, auto Unknown Analyte 9.0 Not Available [facility] Surgery Schedule [address] [place] [address], [address], 06/18/2018 12:28:19 06/18/20 18 06/18/2018 urina lysis , dipst ick, auto Unknown Analyte 25 Jia/ul Trace Not Available [facility] Surgery Schedule [facility] [place], [address], 06/18/2018 12:28:19 06/18/20 18 06/18/2018 urina lysis , dipst ick, auto Unknown Analyte Negati ve Not Available [facility] Surgery Schedule [address] [place] [address], [address], 06/18/2018 12:28:19 06/18/20 18 06/18/2018 urina lysis , dipst ick, auto Unknown Analyte Negtiv e Not Available [facility] Surgery Schedule [facility] [place], [address], 06/18/2018 12:28:19 06/18/20 18 06/18/2018 urina lysis , dipst ick, auto Unknown Analyte Normal Not Available [facility] Surgery Schedule [address] [place] [address], [address], 06/18/2018 12:28:19 06/18/20 18 06/18/2018 urina lysis , dipst ick, auto Unknown Analyte Negati ve Not Available [facility] Surgery Schedule [address] [place], [address], 06/18/2018 12:28:19 06/18/20 18 06/18/2018 urina lysis , dipst ick, auto Unknown Analyte Normal Not Available [facility] Surgery Schedule [address] [place], [address], 06/18/2018 12:28:19 06/18/20 18 06/18/2018 urina lysis , dipst ick, auto Unknown Analyte Negati ve Not Available [facility] Surgery Schedule [address] [place] [address], [address], 06/18/2018 12:28:19 06/18/20 18 06/18/2018 urina lysis , dipst ick, auto Unknown Analyte Negati ve Not Available [facility] Surgery Schedule [address] [place], [address], 06/18/2018 12:28:19 06/18/20 18 06/18/2018 urina lysis , dipst ick, auto Unknown Analyte Clean Catch Not Available [facility] Surgery Schedule [address] [place], [address], 06/18/2018 12:28:19 06/18/20 18 06/18/2018 urina lysis , dipst ick, auto Unknown Analyte Automa latricia Not Available [facility] Surgery Schedule [address] [place], [address], 06/18/2018 12:28:19 06/18/20 18 06/18/2018 US, retro perit oneum , limit ed [address] [address] [place] t Name: JENIFFER lion : [birth year] [...] Umberto Grajeda MD on 06/18/20 10:[address] Rad[address], [address], 06/18/2018 10:26:48 06/18/20 18 06/18/2018 XR, abdom en, [address] [address] Angelo t Name: JENIFFER lion : [birth year] [...] Umberto Grajeda MD on 06/18/20 11:[address], [address], 06/19/2018 10:14:31 Result Notes Documentation Provider Name and Address Organization Details Recorded Time Xr, Abdomen, 1 View : [address] [address] Patient Name: JENIFFER MOURA Patient : 1960 [...] By: Umberto Grajeda MD TER IBARRA MD [address] [place] [address], [address], [facility] 06/19/2018 10:14:31 Procedures Surgical History Date Name [...] Body mass index (BMI) Body weight Systolic And Diastolic Provider Name and Address Organization Details Last Updated DateTime 06/01/2018 157.48 cm 31.1 kg/m2 57994.7 g 132/82 mm[Hg] [place] [facility] 06/01/2018 13:07:38 Date Recorded Body height Body mass index (BMI) Body weight Systolic And Diastolic Provider Name and Address Organization Details Last Updated DateTime 10/12/2018 157.48 cm 31.1 kg/m2 64145.7 g 128/80 mm[Hg] [place] [facility] 10/12/2018 10:07:58 Social History Question Answer Notes LastModified by [employer] Details LastModified Time Tobacco Smoking Status Never Smoker Mattie Erickson [facility] 06/01/2018 13:08:45 Marital Status Informatio n not available 06/01/2018 What Was The Date Of Your Most Recent Tobacco Screening? 10/12/2018 Information n ot available 01/04/2020 Sex: Unknown Functional Status Question Answer Note LastModified by [employer] Details LastModified Time What is your level [...] SNOMED-CT Code Diagnosis ICD10 Code Diagnosis Note [id number] MONSTER IBARRA MD UROLOGY [address] [place] [address] 06/01/2018 12:25:23 06/02/2018 14:45:17 Increased frequency of urination 222482606 R35.0 Urinary tr act infectious disease 97271362 N39.0 Cystocele 904602838 N81. 10 [id number] MONSTER IBARRA MD SURGERY SCHEDULE [address] [place] [address] 06/18/2018 10:16:07 06/18/2018 10:23:15 [id number] MONSTER IBARRA MD UROLOGY [address] [place] [address] 10/12/2018 09:30:48 10/13/2018 13:25:30 Cystocele 574310366 N81.10 Health Concerns Section Related Observation LastModified by Organization Detai ls LastModified Time None Recorded Concern Status LastModified by Organization Details LastModified Time None Recorded Advance Directives Directive None Recorded Payers Insurance Date Sequence Insurance Name Policy Number Policy Vernon Covered Member ID Vernon Member ID Guarantor Name 10/11/2020 1 [facility] [id number] Jeniffer Gabriel True [id number] Jeniffer True 03/27/2021 PAYMENT PLAN Jeniffer Moura Notes Date [...] or concerns today. MONSTER IBARRA MD [address] [place], [address], [facility] 06/01/2018 13:39:11 10/12/2018 text/html 58 yo female her e today for follow up with possible bladder prolapse. She is s/p normal cysto on 06/18/2018. She has no complaints or concerns today. She denies any dysuria or gross hematuria. MONSTER IBARRA MD [address] [place], [address], [facility] 10/12/2018 10:30:05 OBGyn Episode No OBEpisode recorded.
[2025-05-19] MEDS: IRON SUCROSE COMPLEX 200 MG in 0.9 % SODIUM CHLORIDE 100 ML 220 MG IV (13:39)
[2025-05-19 13:47] VITALS: BP 145/52; PULSE 67; RESP 18; O2SAT 97
[2025-05-19 14:30] VITALS: BP 120/47; PULSE 67; RESP 18; O2SAT 97
== END 2025-05-19 14:30 | disposition home or self-care (01) ==
LOC: INF 13:27
PROVIDERS: PCP Nurse Practitioner Family; Visit Provider Nurse Practitioner Family
DX: D50.9 Iron deficiency anemia, unspecified (principal)
CPT/HCPCS: 96365; J1756

== ENCOUNTER 2025-05-27 12:45 | Outpatient (CLI) | payer MEDICARE, SELFPAY ==
--- OUTSIDE RECORDS SUMMARY | 2024-09-17 07:15 | XMS_ITS ---
Author Organization [facility] Address [address] [place] [id number] Care Team Providers Care Woodyard Operator Name Role Phone VernonJamie Primary Care Provider Results Component Value Reference [...] 30 day(s) Active Vitamin D3 250 MCG (06872 UT) 1 cap(s) o rally once a [...] Active Vitamin D (Ergocalciferol) 1 .25 MG (66367 UT) 1 cap(s) orally once a week Active Immunizations Vaccine Route Administration Date Status Comme nts Fluzone Quad (6months&older) IM Intramuscular 09/17/2024 Administered Problems Problem Type SNOMED Code ICD Code Onset Dates Problem Status W/U Status Risk Notes Problem Anemia, unspecified type (D64.9) Active confirmed Encounters Encounter Location Date Provider Diagnosis [facility] [address] [facility] 36 [facility] [address] [place] [phone] 09/17/2024 Jamie Chahal Encounter for immunization Z23 and Anemia, unspecified type D64.9 Assessments Encounter Date Diagnosis (ICD Code) Assessment Notes Treatment Notes Treatment Clinical Notes Section Notes 09/17/2024 Encounter for immunization (ICD-10 - Z23) 09/17/2024 Anemia, unspecified type (ICD-10 - D64.9) Plan Of Treatment Next Appt Details Follow Up: 2 Weeks, Reason: Progress Notes * JON MOURAGUILHERMEB:1960 ( 65 yo F)Acc No.[id number]:09/17/2024 Patient: JENIFFER PETERSON Provider: Marnie Chahal M.D. :1960 A ge:64 Y S ex:Female Date:09/17/2024 Address:[address] [place], [place] [id number] Subjective: * Chief Complaints: * 1 [...] , Taking Vitamin D (Ergocalciferol) 1.25 MG (26610 UT) Capsule 1 cap(s) orally once a week , Taking Aspirin 81 MG Tablet Chewable 1 tab(s) chewed once a day , Taking Vitamin D3 250 MCG (73943 UT) Capsule 1 cap(s) orally once a [...] Electronic signature of Brooke Chahal MD on 05/27/2025 at 12:49 PM EDT Sign off status: Pending * Provider: Marnie Chahal M.D. Date: 11/17/2023 Generated for Luisa pizarro/Nolan/Marcela on: 0 05/27/2025 12:49 PM EDT
--- OUTSIDE RECORDS SUMMARY | 2024-10-01 07:15 | XMS_ITS ---
Author Organization [facility] Address [address] [place] [id number] Care Team Providers Care Sleep Lab Technician Name Role Phone Jamie Chahal Primary Care Provider [phone] Allergies Allergen (clinical drug ingredient) Drug/Non Drug [...] Interpretation:Normal Performing Lab: Notes/Report: Test performed by [facility] [address] [place] [address] , [address], [place] [address] Johnny Smith MD, Math Professor CLIA: [id number] Vitamin B12 1003 276-2736 pg/mL P-Basic Metabolic Panel (BMP ) Reviewed date:10/04/2024 11:01:01 AM Interpretation:Creat 1.10, eGFR 56 Performing Lab: Notes/Report: Test performed by [facility] [address] [facility], [place] [address] Johnny Smith MD, Math Professor CLIA: [id number] Sodium 139 135-145 mmol/L Potassium 4.7 3.5-5.3 mmol/L Chloride 103 97-108 mmol/L CO2 24 22-32 mmol/L Glucose 89 65-99 mg/dL BUN 20 8-23 mg/dL Creatinine 1.10 0.50-1.00 mg/dL Calcium 9.5 8.6-10.4 mg/dL eGFR by Creatinine 56 >59 mL/min/1.73m2 P-Iron with Transferrin Satu ration Reviewed date:10/04/2024 11:01:01 AM Interpretation:Transferrin 375, Trans Sat 12% Performing Lab: Notes/Report: Test performed by [facility] [address] , [place] [address] Johnny Smith MD, Math Professor CLIA: [id number] Iron 65 37-145 ug/dL Transferrin 375 200-360 mg/dL Transferrin Saturation Percentage 12 15-50 % P-Phosphorus Reviewed date:10/04/2024 11:01:01 AM Interpretation:Normal Performing Lab: Notes/Report: Test performed by [facility] [address] [place] [address], [place] [address] Johnny Smith MD, Math Professor CLIA: [id number] Phosphorus 4.1 2.5-4.5 mg/dL P-Parathyroid Hormone (PTH) Intact Reviewed date:10/04/2024 11:01:01 AM Interpretation:Normal Performing Lab: Notes/Report: Test performed by [facility] [address] , [place] [address] Johnny Smith MD, Math Professor CLIA: [id number] Parathyroid Hormone (PTH) Intact 40.9 15.0-65. 0 [...] Active Vitamin D (Ergocalciferol) 1 .25 MG (33963 UT) 1 cap(s) orally once a week Active Spironolactone 25 MG 1 tab(s) orally onc e a day; Duration: 30 day(s) Active Vitamin D3 250 MCG (88931 UT) 1 cap(s) o rally once a week 09/02/2022 Active Vital Signs Blood pressure systolic 130 mm Hg 10/01/20 24 Blood pressure diastolic 72 mm Hg 024 Heart Rate 61 /min 10/01/2024 Height 62 in 10/01/2024 Weight 188 lbs 10/01/2024 BMI 34.38 kg/m2 10/01/2024 Encounters Encounter Location Date Provider Diagnosis [facility] [address] [place] [id number] 10/01/2024 Jamie Chahal Renal insufficiency N28.9 ; [...] Omeprazole 40 MG Take 1 capsule by [facility] once daily for 90 days Next Appt Details Follow Up: via phone to repo rt test results, Reason: Progress Notes * TRUE, JONNDADOB:1960 ( 65 yo F)Acc No.[id number]:10/01/2024 Progress Notes Patient: JENIFFER PETERSON Provider: Marnie Chahal M.D. :1960 A ge:64 Y S ex:Female Date:10/01/2024 Address:[address] [place], [place] [address] [id number] Subjective: * Chief Complaints: * 1 . [...] * Hospitalization/Major Diagno stic Procedure: S yncope- [facility] ER 11/03/2020, Syncope, Anemia- H [...] , Taking Vitamin D (Ergocalciferol) 1.25 MG (61782 UT) Capsule 1 cap(s) orally once a week , Taking Aspirin 81 MG Tablet Chewable 1 tab(s) chewed once a day , Taking Vitamin D3 250 MCG (11799 UT) Capsule 1 cap(s) orally once a [...] AM)?Normal* Value Reference Range V itamin B12 3560 161-4157 - pg/mL * AlecMarina 10/04/2024 11: 00:49 [...] G 2211 Complex e/[place], [address] CBC WITH AUTO DIFF * Follow Up: v ia phone to report test results * Images: Billing Information: * Visit Code: 10629 Office Visit, Est Pt., Level 4. * Procedure Codes: G2211 Complex e/[place]. [address] CBC WITH AUTO DIFF. * Electronic signature of Brooke Chahal MD on 05/27/2025 at 12:48 PM EDT Sign off status: Pending * Provider: Marnie Chahal M.D. Date: 1 12/01/2023 Generated for Luisa pizarro/Nolan/eTransmitting on: 0 05/27/2025 12:48 PM EDT History and Physical Notes * [...]
--- OUTSIDE RECORDS SUMMARY | 2025-01-10 07:00 | XMS_ITS ---
Author Organization [facility] Address [address] [facility] [address] [place] [id number] Care Team Providers Care Support Services Specialist Name Role Phone Jamie Chahal Primary Care Provider REASON FOR VISIT 6 month f/u Encounters Encounter Location Date Provider Diagnosis [facility] [address] [place] [id number] 01/10/2025 Jamie Chahal Plan Of Treatment No Information Progress Notes * YASH MOURAB:1960 ( 65 yo F)Acc No.[id number]:01/10/2025 Progress Notes Patient: JENIFFER PETERSON Provider: Marnie [...] 01/10/2025 Generated for Printi ng/Faxing/eTransmitting on: 0 05/27/2025 12:48 PM EDT
--- OUTSIDE RECORDS SUMMARY | 2025-05-27 12:48 | XMS_ITS | Clinical Summary ---
Author Organization Healthcare Address [address] [place] [address] Care Team Providers Care Crepe Machine Operator Name Role Phone Jamie Chahal MD Primary Care Provider [phone] Social History Tobacco Use Types Packs/Day Years [...] 2011 UKY-Zoster Vaccines (1 of 2) 2011 [id number] Vaccine (4 - season) 2024 11/05/2021, 12/18/2020, [...] [place] this [place] [id number] ANTH Care Teams Crepe Machine Operator Relationship Specialty Start Date End Date Jamie Chahal MD [address] [facility] [address] [place] [id number] PCP - General 03/30/21
--- OUTSIDE RECORDS SUMMARY | 2025-05-27 12:48 | XMS_ITS | Patient Health Record ---
[facility] [address] [place] [id number] Care Team Providers Care Photogrammetric Compilation Specialist Name Role Phone Tirso Jamie Primary Care Provider [phone] Allergies Allergen (clinical drug ingredient) Drug/Non Drug Allergy documented on EMR Reaction Allergy Type Onset Date Status dexamethasone Dexamethasone Unknown Drug Allergy Active triamcinolone Triamcinolone Unknown Drug Allergy Active Results Component Value Reference Range Notes H-Occult [...] 56 Performing Lab: Notes/Report: Test performed by [facility], [facility] , [address], [place] [address] Johnny Smith MD, Metal Fabrication Supervisor CLIA: [id number] Sodium 138 135-145 mmol/L Potassium 4.8 3.5-5.3 [...] Normal Performing Lab: Notes/Report: Test performed by [facility] [address] [place] [address] , [place] [address] Johnny Smith MD, Metal Fabric[employer] Supervisor CLIA: [id number] Thyroxine Free (free T4) 1.48 0.86-1.76 ng/dL P-Lipid Panel Reviewed date:07/13/2024 09:54:17 AM Interpretation: Normal Performing Lab: Notes/Report: Test performed by [facility] [address] [place] [address] , [address], [place] [address] Johnny Smith MD, Metal [employer] Supervisor CLIA: [id number] Cholesterol 135 <200 mg/dL Triglycerides 79 <150 [...] Normal Performing Lab: Notes/Report: Test performed by [facility] [address] , [place] [address] Johnny Smith MD, Metal Fabrication Supervisor CLIA: [id number] TSH 0.65 0.43-5.25 mU/L P-Microalbumin/Creatinine, R andom Urine Sample Reviewed date:07/13/2024 09:54:17 AM Interpretation:satisfactory Performing Lab: Notes/Report: Test performed by [facility] [address] , [address], [place] [address] Johnny Smith MD, Metal Fab[employer] Supervisor CLIA: [id number] Albumin/Creatinine Ratio, Urine See Comment 0-30 ug/mg Unable to calculate Urine Albumin/Creatinine Ratio when urine creatinine or urine albumin fall outside established reportable range. Microalbumin, Urine, Random <0.3 Creatinine, Urine 59.4 P-Vitamin D 25-Hydroxy Reviewed date:07/13/2024 09:54:17 AM Interpretation:36.8 Performing Lab: Notes/Report: Test performed by [facility] [address] , [address], [place] [address] Johnny Smith MD, Metal Fabrication Supervisor CLIA: [id number] Vitamin D 25-Hydroxy 36.8 30.0-100.0 ng/mL Interpretation of Vitamin D 25 OH: < 20 ng/mL - Deficiency 20 - 29 ng/mL - Insufficiency 30 - 100 ng/mL - Sufficiency > 100 ng/mL - Super-therapeutic- toxicity may occur above this level. Clinical correlation required. CBC Venipuncture (in house) Reviewed date:10/04/2024 11:01:01 [...] Interpretation:Normal Performing Lab: Notes/Report: Test performed by [facility] [address] [place] [address] , [address], [place] [address] Johnny Smith MD, Metal Fabrication Supervisor CLIA: [id number] Vitamin B12 2879 542-1435 pg/mL P-Basic Metabolic Panel (BMP ) Reviewed date:10/04/2024 11:01:01 AM Interpretation:Creat 1.10, eGFR 56 Performing Lab: Notes/Report: Test performed by [facility] [address] [place] [address] , [address], [place] [address] Johnny Smith MD, Metal Fabrication Supervisor CLIA: [id number] Sodium 139 135-145 mmol/L Potassium 4.7 3.5-5.3 mmol/L Chloride 103 97-108 mmol/L CO2 24 22-32 mmol/L Glucose 89 65-99 mg/dL BUN 20 8-23 mg/dL Creatinine 1.10 0.50-1.00 mg/dL Calcium 9.5 8.6-10.4 mg/dL eGFR by Creatinine 56 >59 mL/min/1.73m2 P-Iron with Transferrin Satu ration Reviewed date:10/04/2024 11:01:01 AM Interpretation:Transferrin 375, Trans Sat 12% Performing Lab: Notes/Report: Test performed by [facility], [address] , [place] [address] Johnny Smith MD, Metal Fabrication Supervisor CLIA: [id number] Iron 65 37-145 ug/dL Transferrin 375 200-360 mg/dL Transferrin Saturation Percentage 12 15-50 % P-Phosphorus Reviewed date:10/04/2024 11:01:01 AM Interpretation:Normal Performing Lab: Notes/Report: [facility], [address] , [address], [place] [address] Johnny Smith MD, Metal Fabrication Supervisor CLIA: [id number] Phosphorus 4.1 2.5-4.5 mg/dL P-Parathyroid Hormone (PTH) Intact Reviewed date:10/04/2024 11:01:01 AM Interpretation:Normal Performing Lab: Notes/Report: Test performed by [facility], [address] , [facility], [place] [address] Johnny Smith MD, Metal Fabrication Supervisor CLIA: [id number] Parathyroid Hormone (PTH) Intact 40.9 15.0-65.0 pg/mL Reason For Referral No Information Medications Medication SIG (Take, Route, Frequency, Duration) Notes Start Date End Date Status metFORMIN HCl ER 500 MG 1 tablet Orally Once a day; Duration: 90 days Active Ranolazine ER 500 MG 1 tab(s) orally 2 times a day Active Spironolactone 25 MG Take 1 tablet by mouth once daily; Duration: 90 Active Atorvastatin Calcium 40 MG 1 tab(s) oral ly once a day; Duration: 90 days Active Atenolol 50 MG 1/2 tab(s) orally once a day; Duration: 90 days Active Famotidine 40 MG 1 tablet Orally Once a day; Duration: 90 days 10/01/2024 Active hydroCHLOROthiazide 25 MG 1 tab(s) orall y once a day Active Losartan Potassium 50 MG 1 tab(s) orally once a day Active rOPINIRole HCl 0.25 MG 1 tablet Orally O nce a day in the evening; Duration: 30 days Active Vitamin D3 250 MCG (59555 UT) 1 cap(s) o rally once a week 09/02/2022 Active Folic Acid 1 MG 1 tab(s) orally once a day; Duration: 30 days Active Aspirin 81 MG 1 tab(s) chewed once a day; Duration: 30 day(s) Active Vitamin D (Ergocalciferol) 1 .25 MG (85009 UT) 1 cap(s) orally once a week [...] W/U Status Risk Notes Problem Essential hypertension (23198234) Essential (primary) hypertension (I10) Active confirmed Problem Type 2 diabetes mellitus (70950494) Type 2 diabetes mellitus (E11.9) Active confirmed Problem Vitamin D deficiency (25678253) Vitamin D deficiency (E55.9) Active confirmed Problem Essential hypertension (03693349) Essential hypertension (I10) Active confirmed Problem Unstable angina (4313002) Unstable angina (I20.0) Active confirmed Problem Carotid artery occlusion (438126877) Occlusion and stenosis of unspecified carotid artery (I65.29) Active confirmed Problem Chronic maxillary sinusitis (03181734) Chronic maxillary sinusitis (J32.0) Active confirmed Problem Sciatica (69674475) Lumbago with sciatica, left side (M54.42) Active confirmed Problem Chronic pain (55895522) Other chronic pain (G89.29) Active confirmed Problem Restless legs (00415949) Restless leg (G25.81) Active confirmed Problem Acquired hypothyroidism (994601873) Acquired hypothyroidism (E03.9) Active confirmed Problem Atherosclerotic hear t disease of [place] coronary artery without angina pectoris (629012326581064) Coronary artery disease involving [place] coronary artery of [place] heart without angina pectoris (I25.10) Active confirmed Problem Gastroesophageal reflux disease (673867311) Gastroesophageal reflux disease, esophagitis presence not specified (K21.9) Active confirmed Problem Migraine (01256768) Migraine wit hout status migrainosus, not intractable, unspecified migraine type (G43.909) Active confirmed Problem Anemia (869026656) Anemia, unspe cified type (D64.9) Active confirmed Problem Hyperlipidaemia (51648817) Hyperlipidemia, unspecified hyperlipidemia type (E78.5) Active confirmed Problem Hypothyroidism (63759068) Hypothyroidism, unspecified type (E03.9) Active confirmed Problem Stented coronary artery (728420400) Stented coronary artery (Z95.5) Active confirmed Problem Impaired fasting glycaemia (795215648) IFG (impaired fasting glucose) (R73.01) Active confirmed Problem Atherosclerotic hear t disease of [place] coronary artery without angina pectoris (117057958650903) Atherosclerosis of [place] coronary artery without angina pectoris, unspecified whether [place] or transplanted heart (I25.10) Active confirmed Problem Pure hypercholesterolemia (704224087) Pure hypercholesterolemia (E78.00) Active confirmed Problem Angina co-occurrent and due to coronary arteriosclerosis (31859076324480441) Coronary artery disease of [place] artery of [place] heart with stable angina pectoris (I25.118) Active confirmed Problem Carotid artery occlusion (163216840) Stenosis of carotid artery, unspecified laterality (I65.29) Active confirmed Problem Obesity (213944456) Non morbid o besity (E66.9) Active confirmed Problem History of placement of stent for coronary artery disease (situation) (112017468) S/P coronary artery stent placement (Z95.5) Active confirmed Problem Seasonal allergic rhinitis (042424819) Seasonal allergic rhinitis, unspecified trigger (J30.2) Active confirmed Problem Angina co-occurrent and due to coronary arteriosclerosis (07176245496918097) Coronary artery disease involving [place] coronary artery of [place] heart with other form of angina pectoris (I25.118) Active confirmed Vital Signs Heart Rate 61 /min 10/01/2024 Blood pressure diastolic 72 mm Hg 10/01/2024 Height 62 in 10/01/2024 Blood pressure systolic 130 mm Hg 10/01/2024 Weight 188 lbs 10/01/2024 BMI 34.38 kg/m2 10/01/2024 Encounters Encounter Location Date Provider Diagnosis [facility] [address] [place], [place] [id number] 07/12/2024 Jamie Emmett Essential hypertensi on I10 ; Pure hypercholesterolemia E78.00 ; Type 2 diabetes mellitus E11.9 ; Acquired hypothyroidism E03.9 ; Vitamin D deficiency E55.9 and Gastroesophageal reflux disease, esophagitis presence not specified K21.9 [facility] [address] [place], [place] [id number] 09/17/2024 Jamie Emmett Encounter for immuni zation Z23 and Anemia, unspecified type D64.9 [facility] [address] [facility] [address] [place], [place] [id number] 10/01/2024 Jamie Emmett Renal insufficiency N28.9 ; Anemia, unspecified type D64.9 ; Gastroesophageal reflux disease, esophagitis presence not specified K21.9 and Essential hypertension I10 [facility] [address] [place], [place] [id number] 07/13/2024 Jamie Emmett [facility] [address] [place], [place] [id number] 10/04/2024 Jamie Emmett [facility] [address] [facility] [address] [place], [place] [id number] 2025 Jamie Emmett [facility] [address] [facility] [address] [place], [place] [id number] 06/13/2024 Jamie Emmett Assessments Encounter Date Diagnosis (ICD Code) Assessment Notes Treatment Notes Treatment Clinical Notes Section Notes 07/12/2024 Essential hypertensi on (ICD-10 - I10) 10/01/2024 Anemia, unspecified type (ICD-10 - D64.9) 09/17/2024 Encounter for immunization (ICD-10 - Z23) 09/17/2024 Anemia, unspecified type (ICD-10 - D64.9) 07/12/2024 Pure hypercholesterolemia (ICD-10 - E78.00) 10/01/2024 Renal insufficiency (ICD-10 - N28.9) 10/01/2024 Gastroesophageal ref lux disease, esophagitis presence [...] Date [employer] ([employer]) [address] [address] [place] [address] [phone] [id number] TRUEJENIFFER Self - patient is the insured [...] x2 01/2021 Hospitalization History Reason Date(Month/Year) Syncope- [facility] 11/03/2020 Syncope, Anemia- [facility] 01/14-01/16/2021 Migraine 07/01/2021
--- OUTSIDE RECORDS SUMMARY | 2025-05-27 12:48 | XMS_ITS | Data Portability ---
Author Organization ABEL Schultz [facility] CLOSED Address [address] [facility] [address] [place] [address] Assessment Encounter Date Assessment Date Assessment LastModified [...] 018 10/12/20 18 Cu/Lc Urology Angelica Lozano, [facility] Angelica Lozano, [place], [address], 8 10:28:36 urinal ysis, dipsti ck, auto 018 06/01/20 18 [email or web address] Cu/ Urology [facility], [address] [facility], [place], [address], 8 13:39:07 Referral None record ed. Procedures None record ed. Surgeries None record ed. Imaging None record ed. Medication Orders None record ed. Patient TargetsNo targets recorded. Patient Instructions Encounter Date Encounter Id Patient Instructions Last Modified By Organization Details Last Modified Time 06/01/2018 [id number] Urinary Tract Infection (UTI) in Women: Care Instructions [email or web address] Not available 06/01/2018 13:39:07 KUB/renal US/ cysto/exam to eval cystocele and sxs. Not available 06/01/2018 13:31:01 10/12/2018 [id number] DOing well. rtc prn. [email or web address] Not available 10/12/2018 10:23:59 Reason for Referral None Reported. Results Created Date Observation Date Name Description Value Unit Range Abnormal Flag Note LastModifiedBy Organization Detail LastModifiedTime 10/12/20 18 10/12/2018 urina lysis , dipst ick, auto Unknown Analyte Yellow Not Available Cu/ U[facility] [address] [facility], [place], [address], 10/12/2018 10:08:21 10/12/20 18 10/12/2018 urina lysis , dipst ick, auto Unknown Analyte Clear Not Available / Urology [facility] [address] [facility], [place], [address], 10/12/2018 10:08:21 10/12/20 18 10/12/2018 urina lysis , dipst ick, auto Unknown Analyte 1.005 Not Available / Urology [facility] [address] [facility], [place], [address], 10/12/2018 10:08:21 10/12/20 18 10/12/2018 urina lysis , dipst ick, auto Unknown Analyte 7.0 Not Available Cu/Lc Urology [address] [facility], [place], [address], 10/12/2018 10:08:21 10/12/20 18 10/12/2018 urina lysis , dipst ick, auto Unknown Analyte Negati ve Not Available Cu/Lc Urolo gy [address] [facility], [place], [address], 10/12/2018 10:08:21 10/12/20 18 10/12/2018 urina lysis , dipst ick, auto Unknown Analyte Negati ve Not Available Cu/Lc Urolo [address] [facility], [place], [address], 10/12/2018 10:08:21 10/12/20 18 10/12/2018 urina lysis , dipst ick, auto Unknown Analyte Negtiv e Not Available Cu/Lc Urol[facility] [address] [facility], [place], [address], 10/12/2018 10:08:21 10/12/20 18 10/12/2018 urina lysis , dipst ick, auto Unknown Analyte Normal Not Available Cu/Lc U[facility] [address] [facility], [place], [address], 10/12/2018 10:08:21 10/12/20 18 10/12/2018 urina lysis , dipst ick, auto Unknown Analyte Negati ve Not Available Cu/Lc [facility]rol[address] [place], [address], 10/12/2018 10:08:21 10/12/20 18 10/12/2018 urina lysis , dipst ick, auto Unknown Analyte Normal Not Available Cu/Lc [facility] [address] [place], [address], 10/12/2018 10:08:21 10/12/20 18 10/12/2018 urina lysis , dipst ick, auto Unknown Analyte Negati ve Not Available Cu/Lc Urol[facility] [address] [place], [address], 10/12/2018 10:08:21 10/12/20 18 10/12/2018 urina lysis , dipst ick, auto Unknown Analyte Negati ve Not Available Cu/Lc Urolo [address] [facility], [place], [address], 10/12/2018 10:08:21 10/12/20 18 10/12/2018 urina lysis , dipst ick, auto Unknown Analyte Clean Catch Not Available Cu/Lc Urol[facility] [address] [place], [address], 10/12/2018 10:08:21 10/12/20 18 10/12/2018 urina lysis , dipst ick, auto Unknown Analyte Visual Not Available Cu/Lc U[facility] [address] [facility], [place], [address], 10/12/2018 10:08:21 06/01/20 18 06/01/2018 urina lysis , dipst ick, auto Unknown Analyte Yellow Not Available Cu/Lc [facility] [address] [place], [address], 06/01/2018 13:11:50 06/01/20 18 06/01/2018 urina lysis , dipst ick, auto Unknown Analyte Clear Not Available Cu/Lc [facility] [address] [place], [address], 06/01/2018 13:11:50 06/01/20 18 06/01/2018 urina lysis , dipst ick, auto Unknown Analyte 1.005 Not Available Cu/Lc U[facility] [address] [place], [address], 06/01/2018 13:11:50 06/01/20 18 06/01/2018 urina lysis , dipst ick, auto Unknown Analyte 7.0 Not Available Cu/Lc U[facility] [address] [facility], [place], [address], 06/01/2018 13:11:50 06/01/20 18 06/01/2018 urina lysis , dipst ick, auto Unknown Analyte Negati ve Not Available Cu/Lc Urol[facility] [address] [facility], [place], [address], 06/01/2018 13:11:50 06/01/20 18 06/01/2018 urina lysis , dipst ick, auto Unknown Analyte Negati ve Not Available Cu/Lc Urol[facility] [address] [place], [address], 06/01/2018 13:11:50 06/01/20 18 06/01/2018 urina lysis , dipst ick, auto Unknown Analyte Trace Not Available Cu/Lc Urology [address] [facility], [place], [address], 06/01/2018 13:11:50 06/01/20 18 06/01/2018 urina lysis , dipst ick, auto Unknown Analyte Normal Not Available Cu/Lc Urology [facility] [address] [place], [address], 06/01/2018 13:11:50 06/01/20 18 06/01/2018 urina lysis , dipst ick, auto Unknown Analyte Negati ve Not Available Cu/Lc Urol[facility] [address] [place], [address], 06/01/2018 13:11:50 06/01/20 18 06/01/2018 urina lysis , dipst ick, auto Unknown Analyte Normal Not Available Cu/Lc Urology [address] [place], [address], 06/01/2018 13:11:50 06/01/20 18 06/01/2018 urina lysis , dipst ick, auto Unknown Analyte Negati ve Not Available Cu/Lc Urolo [facility] [address] [facility], [place], [address], 06/01/2018 13:11:50 06/01/20 18 06/01/2018 urina lysis , dipst ick, auto Unknown Analyte Negati ve Not Available Cu/Lc Urolo [facility] [address] [facility], [place], [address], 06/01/2018 13:11:50 06/01/20 18 06/01/2018 urina lysis , dipst ick, auto Unknown Analyte Clean Catch Not Available Cu/Lc Urolo [address] [facility], [place], [address], 06/01/2018 13:11:50 06/01/20 18 06/01/2018 urina lysis , dipst ick, auto Unknown Analyte Automa latricia Not Available Cu/Lc Urolo [facility] [address] [facility], [place], [address], 06/01/2018 13:11:50 06/18/20 18 06/18/2018 cytol ogy, [...] 1 of 1 Not Available [facility] [address] [place] [address], [address], 06/22/2018 11:27:04 06/18/20 18 06/18/2018 urina lysis , dipst ick, auto Unknown Analyte Yellow Not Available [facility] Surgery Schedule [address] [place], [address], 06/18/2018 12:28:19 06/18/20 18 06/18/2018 urina lysis , dipst ick, auto Unknown Analyte Clear Not Available [facility] Surgery Schedule [address] [place], [address], 06/18/2018 12:28:19 06/18/20 18 06/18/2018 urina lysis , dipst ick, auto Unknown Analyte 1.015 Not Available [facility] Surgery Schedule [address] [place] [address], [address], 06/18/2018 12:28:19 06/18/20 18 06/18/2018 urina lysis , dipst ick, auto Unknown Analyte 9.0 Not Available [facility] Surgery Schedule [address] [place] [address], [address], 06/18/2018 12:28:19 06/18/20 18 06/18/2018 urina lysis , dipst ick, auto Unknown Analyte 25 Jia/ul Trace Not Available [facility] Surgery Schedule [facility] [place], [address], 06/18/2018 12:28:19 06/18/20 18 06/18/2018 urina lysis , dipst ick, auto Unknown Analyte Negati ve Not Available [facility] Surgery Schedule [address] [place] [address], [address], 06/18/2018 12:28:19 06/18/20 18 06/18/2018 urina lysis , dipst ick, auto Unknown Analyte Negtiv e Not Available [facility] Surgery Schedule [facility] [place], [address], 06/18/2018 12:28:19 06/18/20 18 06/18/2018 urina lysis , dipst ick, auto Unknown Analyte Normal Not Available [facility] Surgery Schedule [address] [place] [address], [address], 06/18/2018 12:28:19 06/18/20 18 06/18/2018 urina lysis , dipst ick, auto Unknown Analyte Negati ve Not Available [facility] Surgery Schedule [address] [place], [address], 06/18/2018 12:28:19 06/18/20 18 06/18/2018 urina lysis , dipst ick, auto Unknown Analyte Normal Not Available [facility] Surgery Schedule [address] [place], [address], 06/18/2018 12:28:19 06/18/20 18 06/18/2018 urina lysis , dipst ick, auto Unknown Analyte Negati ve Not Available [facility] Surgery Schedule [address] [place] [address], [address], 06/18/2018 12:28:19 06/18/20 18 06/18/2018 urina lysis , dipst ick, auto Unknown Analyte Negati ve Not Available [facility] Surgery Schedule [address] [place], [address], 06/18/2018 12:28:19 06/18/20 18 06/18/2018 urina lysis , dipst ick, auto Unknown Analyte Clean Catch Not Available [facility] Surgery Schedule [address] [place], [address], 06/18/2018 12:28:19 06/18/20 18 06/18/2018 urina lysis , dipst ick, auto Unknown Analyte Automa latricia Not Available [facility] Surgery Schedule [address] [place], [address], 06/18/2018 12:28:19 06/18/20 18 06/18/2018 US, retro perit oneum , limit ed [address] [address] Patigabriel t Name: JENIFFER lion : [birth year] [...] Umberto Grajeda MD on 06/18/20 10:[address], [address], 06/18/2018 10:26:48 06/18/20 18 06/18/2018 XR, abdom en, [address] [address] Angelo t Name: JENIFFER lion : [birth year] [...] Umberto Grajeda MD on 06/18/20 11:[address], [address], 06/19/2018 10:14:31 Result Notes Documentation Provider Name and Address Organization Details Recorded Time Xr, Abdomen, 1 View : [address] [address] Patient Name: JENIFFER MOURA Patient : 1960 [...] By: Umberto Grajeda MD TER IBARRA MD [address] [place] [address], [address], [facility] 06/19/2018 10:14:31 Procedures Surgical History Date Name Laterality Status Provider Name and Address Organization Details Recorded Time 10/12/20 18 Post Void Residual; Ultrasound completed [facility] 10/12/2018 10:28:20 06/01/20 18 Post Void Residual; Ultrasound completed [facility] 06/01/2018 13:13:10 delivery completed [facility] 06/01/2018 13:09:15 Hysterectomy completed [facility] 06/01/2018 13:09:22 Imaging Results None recorded. Procedure [...] Updated DateTime 06/01/2018 157.48 cm 31.1 kg/m2 88809.7 g 132/82 mm[Hg] [facility] 06/01/2018 13:07:38 Date Recorded Body height Body mass index (BMI) Body weight Systolic And Diastolic Provider Name and Address Organization Details Last Updated DateTime 10/12/2018 157.48 cm 31.1 kg/m2 57914.7 g 128/80 mm[Hg] [facility] 10/12/2018 10:07:58 Social History Question Answer Notes LastModified by [facility] Details LastModified Time Tobacco Smoking Status Never Smoker Mattie Erickson [facility] 06/01/2018 13:08:45 Marital Status Informatio n not available 06/01/2018 What Was The Date Of Your Most Recent Tobacco Screening? 10/12/2018 Information n ot available 01/04/2020 Sex: Unknown Functional Status Question Answer Note LastModified by [facility] Details LastModified Time What is your level [...] SNOMED-CT Code Diagnosis ICD10 Code Diagnosis Note [id number] MONSTER IBARRA MD UROLOGY [facility] [address] [place] [address] 06/01/2018 12:25:23 06/02/2018 14:45:17 Increased frequency of urination 336235318 R35.0 Urinary tr act infectious disease 96045232 N39.0 Cystocele 867836875 N81. 10 [id number] MONSTER IBARRA MD SURGERY SCHEDULE [address] [place] [address] 06/18/2018 10:16:07 06/18/2018 10:23:15 [id number] MONSTER IBARRA MD UROLOGY [facility] [address] [place] [address] 10/12/2018 09:30:48 10/13/2018 13:25:30 Cystocele 524700459 N81.10 Health Concerns Section Related Observation LastModified by Organization Detai ls LastModified Time None Recorded Concern Status LastModified by Organization Details LastModified Time None Recorded Advance Directives Directive None Recorded Payers Insurance Date Sequence Insurance Name Policy Number Policy Vernon Covered Member ID Vernon Member ID Guarantor Name 10/11/2020 1 [facility] [id number] Jeniffer Gabriel True [id number] Jeniffer True 03/27/2021 PAYMENT PLAN Jeniffer Moura [...] or concerns today. MONSTER IBARRA MD [address] [place], [address], [facility] 06/01/2018 13:39:11 10/12/2018 text/html 58 yo female her e today for follow up with possible bladder prolapse. She is s/p normal cysto on 06/18/2018. She has no complaints or concerns today. She denies any dysuria or gross hematuria. MONSTER IBARRA MD [address] [place], [address], [facility] 10/12/2018 10:30:05 OBGyn Episode No OBEpisode recorded.
[2025-05-27 12:56] VITALS: BP 139/67; PULSE 72; RESP 18; O2SAT 97
[2025-05-27] MEDS: IRON SUCROSE COMPLEX 200 MG in 0.9 % SODIUM CHLORIDE 100 ML 220 MG IV (13:05)
[2025-05-27 13:35] VITALS: BP 146/59; PULSE 73; RESP 18; O2SAT 97
== END 2025-05-27 13:35 | disposition home or self-care (01) ==
LOC: INF 12:46
PROVIDERS: PCP Nurse Practitioner Family; Visit Provider Nurse Practitioner Family
DX: D50.9 Iron deficiency anemia, unspecified (principal)
CPT/HCPCS: 96365; J1756

== ENCOUNTER 2025-06-02 12:50 | Outpatient (CLI) | payer MEDICARE, SELFPAY ==
--- OUTSIDE RECORDS SUMMARY | 2024-09-17 07:15 | XMS_ITS ---
Author Organization [facility] Address [address] [place] [id number] Care Team Providers Care Bench Examiner Name Role Phone LovellJamie Primary Care Provider Results Component Value Reference [...] 30 day(s) Active Vitamin D3 250 MCG (12720 UT) 1 cap(s) o rally once a [...] Active Vitamin D (Ergocalciferol) 1 .25 MG (33597 UT) 1 cap(s) orally once a week Active Immunizations Vaccine Route Administration Date Status Comme nts Fluzone Quad (6months&older) IM Intramuscular 09/17/2024 Administered Problems Problem Type SNOMED Code ICD Code Onset Dates Problem Status W/U Status Risk Notes Problem Anemia, unspecified type (D64.9) Active confirmed Encounters Encounter Location Date Provider Diagnosis [facility] [address] [facility] 36 [facility] [address] [place] [phone] 09/17/2024 Jamie Chahal Encounter for immunization Z23 and Anemia, unspecified type D64.9 Assessments Encounter Date Diagnosis (ICD Code) Assessment Notes Treatment Notes Treatment Clinical Notes Section Notes 09/17/2024 Encounter for immunization (ICD-10 - Z23) 09/17/2024 Anemia, unspecified type (ICD-10 - D64.9) Plan Of Treatment Next Appt Details Follow Up: 2 Weeks, Reason: Progress Notes * JON MOURAGUILHERMEB:1960 ( 65 yo F)Acc No.[id number]:09/17/2024 Patient: JENIFFER PETERSON Provider: Marnie Chahal M.D. :1960 A ge:64 Y S ex:Female Date:09/17/2024 Address:[address] [place], [place] [id number] Subjective: * Chief Complaints: * 1 [...] , Taking Vitamin D (Ergocalciferol) 1.25 MG (59649 UT) Capsule 1 cap(s) orally once a week , Taking Aspirin 81 MG Tablet Chewable 1 tab(s) chewed once a day , Taking Vitamin D3 250 MCG (09692 UT) Capsule 1 cap(s) orally once a [...] Electronic signature of Brooke Chahal MD on 06/02/2025 at 12:55 PM EDT Sign off status: Pending * Provider: Marnie Chahal M.D. Date: 11/17/2023 Generated for Luisa pizarro/Nolan/Marcela on: 0 06/02/2025 12:55 PM EDT
--- OUTSIDE RECORDS SUMMARY | 2024-10-01 07:15 | XMS_ITS ---
[facility] Address [address] [place] [id number] Care Team Providers Care Ring Sorter Name Role Phone Jamie Chahal Primary Care Provider [phone] Allergies Allergen (clinical drug ingredient) Drug/Non Drug [...] Interpretation:Normal Performing Lab: Notes/Report: Test performed by [employer] [address] [place] [address] , [address], [place] [address] Johnny Smith MD, Felt Hooker CLIA: [id number] Vitamin B12 0518 147-0903 pg/mL P-Basic Metabolic Panel (BMP ) Reviewed date:10/04/2024 11:01:01 AM Interpretation:Creat 1.10, eGFR 56 Performing Lab: Notes/Report: Test performed by [employer] [address] [facility], [place] [address] Johnny Smith MD, Felt Hooker CLIA: [id number] Sodium 139 135-145 mmol/L Potassium 4.7 3.5-5.3 mmol/L Chloride 103 97-108 mmol/L CO2 24 22-32 mmol/L Glucose 89 65-99 mg/dL BUN 20 8-23 mg/dL Creatinine 1.10 0.50-1.00 mg/dL Calcium 9.5 8.6-10.4 mg/dL eGFR by Creatinine 56 >59 mL/min/1.73m2 P-Iron with Transferrin Satu ration Reviewed date:10/04/2024 11:01:01 AM Interpretation:Transferrin 375, Trans Sat 12% Performing Lab: Notes/Report: Test performed by [facility] [address] , [place] [address] Johnny Smith MD, Felt Hooker CLIA: [id number] Iron 65 37-145 ug/dL Transferrin 375 200-360 mg/dL Transferrin Saturation Percentage 12 15-50 % P-Phosphorus Reviewed date:10/04/2024 11:01:01 AM Interpretation:Normal Performing Lab: Notes/Report: Test performed by [employer] [address] [place] [address], [place] [address] Johnny Smith MD, Felt Hooker CLIA: [id number] Phosphorus 4.1 2.5-4.5 mg/dL P-Parathyroid Hormone (PTH) Intact Reviewed date:10/04/2024 11:01:01 AM Interpretation:Normal Performing Lab: Notes/Report: Test performed by [facility] [address] , [place] [address] Johnny Smith MD, Felt Hooker CLIA: [id number] Parathyroid Hormone (PTH) Intact 40.9 15.0-65. 0 [...] Active Vitamin D (Ergocalciferol) 1 .25 MG (35358 UT) 1 cap(s) orally once a week Active Spironolactone 25 MG 1 tab(s) orally onc e a day; Duration: 30 day(s) Active Vitamin D3 250 MCG (91546 UT) 1 cap(s) o rally once a week 09/02/2022 Active Vital Signs Blood pressure systolic 130 mm Hg 10/01/20 24 Blood pressure diastolic 72 mm Hg 024 Heart Rate 61 /min 10/01/2024 Height 62 in 10/01/2024 Weight 188 lbs 10/01/2024 BMI 34.38 kg/m2 10/01/2024 Encounters Encounter Location Date Provider Diagnosis [facility] [address] [place] [id number] 10/01/2024 Jamie Chahal Renal insufficiency N28.9 ; [...] Omeprazole 40 MG Take 1 capsule by [facility] once daily for 90 days Next Appt Details Follow Up: via phone to repo rt test results, Reason: Progress Notes * TRUE, JONNDADOB:1960 ( 65 yo F)Acc No.[id number]:10/01/2024 Progress Notes Patient: JENIFFER PETERSON Provider: Marnie Chahal M.D. :1960 A ge:64 Y S ex:Female Date:10/01/2024 Address:[address] [place], [place] [address] [id number] Subjective: * Chief Complaints: * 1 . [...] , Taking Vitamin D (Ergocalciferol) 1.25 MG (37400 UT) Capsule 1 cap(s) orally once a week , Taking Aspirin 81 MG Tablet Chewable 1 tab(s) chewed once a day , Taking Vitamin D3 250 MCG (12911 UT) Capsule 1 cap(s) orally once a [...] 2.5-4.5 - mg/dL * Marina Michael 10/04/2024 11 :00:49 AM >See phone encounter ?LAB: P-Parathyroid Hormone (PTH) Intact (Collection Date & Time - 10/01/2024 10:10 AM)?Normal* Value Reference Range P arathyroid Hormone (PTH) Intact 40.9 15.0-65. 0 - pg/mL * Marina Michael 10/04/2024 11: 00:49 AM >See phone encounter 2.?Anemia, unspecified type?LAB: P-Vitamin B12 (Collection Date & Time - 10/01/2024 10:10 AM)?Normal* Value Reference Range V itamin B12 5757 550-5196 - pg/mL * AlecMarina 10/04/2024 11: 00:49 [...] G 2211 Complex e/[place], [address] CBC WITH AUTO DIFF * Follow Up: v ia phone to report test results * Images: Billing Information: * Visit Code: 59474 Office Visit, Est Pt., Level 4. * Procedure Codes: G2211 Complex e/[place]. [address] CBC WITH AUTO DIFF. * Electronic signature of Brooke Chahal MD on 06/02/2025 at 12:55 PM EDT Sign off status: Pending * Provider: Marnie Chahal M.D. Date: 1 12/01/2023 Generated for Luisa pizarro/Nolan/eTransmitting on: 0 06/02/2025 12:55 PM EDT History and Physical Notes * [...]
--- OUTSIDE RECORDS SUMMARY | 2025-01-10 07:00 | XMS_ITS ---
Author Organization [facility] Address [address] [facility] [address] [place] [id number] Care Team Providers Care Acetylene Torch Solderer Name Role Phone Jamie Chahal Primary Care Provider REASON FOR VISIT 6 month f/u Encounters Encounter Location Date Provider Diagnosis [facility] [facility] [address] [place] [id number] 01/10/2025 Jamie Chahal Plan Of Treatment No Information Progress Notes * YASH MORUAB:1960 ( 65 yo F)Acc No.[id number]:01/10/2025 Progress Notes Patient: JENIFFER PETERSON Provider: Marnie [...] 01/10/2025 Generated for Printi ng/Faxing/eTransmitting on: 0 06/02/2025 12:55 PM EDT
--- OUTSIDE RECORDS SUMMARY | 2025-06-02 12:56 | XMS_ITS | Patient Health Record ---
[facility] [address] [place] [id number] Care Team Providers Care Textile Coating Machine Operator Name Role Phone Jamie Chahal Primary Care Provider [phone] Allergies Allergen (clinical drug ingredient) Drug/Non Drug [...] 56 Performing Lab: Notes/Report: Test performed by [employer], [employer] [facility] , [address], [place] [address] Johnny Smith MD, [employer] CLIA: [id number] Sodium 138 135-145 mmol/L Potassium 4.8 3.5-5.3 [...] Normal Performing Lab: Notes/Report: Test performed by [facility] [address] [place] [address] , [place] [address] Johnyn Smith MD, [employer] CLIA: [id number] Thyroxine Free (free T4) 1.48 0.86-1.76 ng/dL P-Lipid Panel Reviewed date:07/13/2024 09:54:17 AM Interpretation: Normal Performing Lab: Notes/Report: Test performed by [facility] [address] [place] [address] Lucian Mckinney C, [place] [address] Johnny Smith MD, [employer] CLIA: [id number] Cholesterol 135 <200 mg/dL Triglycerides 79 <150 [...] Normal Performing Lab: Notes/Report: Test performed by [facility] [address] , [address], [place] [address] Johnny Smith MD, [employer] CLIA: [id number] TSH 0.65 0.43-5.25 mU/L P-Microalbumin/Creatinine, R andom Urine Sample Reviewed date:07/13/2024 09:54:17 AM Interpretation:satisfactory Performing Lab: Notes/Report: Test performed by [facility] [address] , [address], [place] [address] Johnny Smith MD, [employer] CLIA: [id number] Albumin/Creatinine Ratio, Urine See Comment 0-30 ug/mg Unable to calculate Urine Albumin/Creatinine Ratio when urine creatinine or urine albumin fall outside established reportable range. Microalbumin, Urine, Random <0.3 Creatinine, Urine 59.4 P-Vitamin D 25-Hydroxy Reviewed date:07/13/2024 09:54:17 AM Interpretation:36.8 Performing Lab: Notes/Report: Test performed by [facility] [address] , [address], [place] [address] Johnny Smith MD, [employer] CLIA: [id number] Vitamin D 25-Hydroxy 36.8 30.0-100.0 ng/mL Interpretation [...] Interpretation:Normal Performing Lab: Notes/Report: Test performed by [facility] [address] [place] [address] , [address], [place] [address] Johnny Smith MD, [employer] CLIA: [id number] Vitamin B12 9236 255-8885 pg/mL P-Basic Metabolic Panel (BMP ) Reviewed date:10/04/2024 11:01:01 AM Interpretation:Creat 1.10, eGFR 56 Performing Lab: Notes/Report: Test performed by [facility] [address] [place] [address] , [address], [place] [address] Johnny Smith MD, [employer] CLIA: [id number] Sodium 139 135-145 mmol/L Potassium 4.7 3.5-5.3 mmol/L Chloride 103 97-108 mmol/L CO2 24 22-32 mmol/L Glucose 89 65-99 mg/dL BUN 20 8-23 mg/dL Creatinine 1.10 0.50-1.00 mg/dL Calcium 9.5 8.6-10.4 mg/dL eGFR by Creatinine 56 >59 mL/min/1.73m2 P-Iron with Transferrin Satu ration Reviewed date:10/04/2024 11:01:01 AM Interpretation:Transferrin 375, Trans Sat 12% Performing Lab: Notes/Report: Test performed by [facility] [address] [place] [address] , [address], [place] [address] Johnny Smith MD, [employer] CLIA: [id number] Iron 65 37-145 ug/dL Transferrin 375 200-360 mg/dL Transferrin Saturation Percentage 12 15-50 % P-Phosphorus Reviewed date:10/04/2024 11:01:01 AM Interpretation:Normal Performing Lab: Notes/Report: Test performed by [facility] [address] , [address], [place] [address] Johnny Smith MD, [employer] CLIA: [id number] Phosphorus 4.1 2.5-4.5 mg/dL P-Parathyroid Hormone (PTH) Intact Reviewed date:10/04/2024 11:01:01 AM Interpretation:Normal Performing Lab: Notes/Report: Test performed by [facility] [address] , [place] [address] Johnny Smith MD, [employer] CLIA: [id number] Parathyroid Hormone (PTH) Intact 40.9 15.0-65.0 pg/mL H-Occult Blood, Stool Reviewed date:09/20/2024 03:49:50 PM [...] 30 days Active Vitamin D3 250 MCG (82857 UT) 1 cap(s) o rally once a week 09/02/2022 Active Folic Acid 1 MG 1 tab(s) orally once a day; Duration: 30 days Active Aspirin 81 MG 1 tab(s) chewed once a day; Duration: 30 day(s) Active Vitamin D (Ergocalciferol) 1 .25 MG (94883 UT) 1 cap(s) orally once a week [...] W/U Status Risk Notes Problem Essential hypertension (74188996) Essential (primary) hypertension (I10) Active confirmed Problem Type 2 diabetes mellitus (10927073) Type 2 diabetes mellitus (E11.9) Active confirmed Problem Vitamin D deficiency (28024788) Vitamin D deficiency (E55.9) Active confirmed Problem Essential hypertension (91292266) Essential hypertension (I10) Active confirmed Problem Unstable angina (8908519) Unstable angina (I20.0) Active confirmed Problem Carotid artery occlusion (619672973) Occlusion and stenosis of unspecified carotid artery (I65.29) Active confirmed Problem Chronic maxillary sinusitis (01530751) Chronic maxillary sinusitis (J32.0) Active confirmed Problem Sciatica (02154445) Lumbago with sciatica, left side (M54.42) Active confirmed Problem Chronic pain (99762573) Other chronic pain (G89.29) Active confirmed Problem Restless legs (49514225) Restless leg (G25.81) Active confirmed Problem Acquired hypothyroidism (295469976) Acquired hypothyroidism (E03.9) Active confirmed Problem Atherosclerotic hear t disease of quina[place] coronary artery without angina pectoris (662207359509388) Coronary artery disease involving [place] coronary artery of qu[place] heart without angina pectoris (I25.10) Active confirmed Problem Gastroesophageal reflux disease (077920497) Gastroesophageal reflux disease, esophagitis presence not specified (K21.9) Active confirmed Problem Migraine (18183399) Migraine wit hout status migrainosus, not intractable, unspecified migraine type (G43.909) Active confirmed Problem Anemia (743353062) Anemia, unspe cified type (D64.9) Active confirmed Problem Hyperlipidaemia (82164322) Hyperlipidemia, unspecified hyperlipidemia type (E78.5) Active confirmed Problem Hypothyroidism (06810883) Hypothyroidism, unspecified type (E03.9) Active confirmed Problem Stented coronary artery (698866692) Stented coronary artery (Z95.5) Active confirmed Problem Impaired fasting glycaemia (859905143) IFG (impaired fasting glucose) (R73.01) Active confirmed Problem Atherosclerotic hear t disease of qu[place] coronary artery without angina pectoris (083456642287296) Atherosclerosis of [place] coronary artery without angina pectoris, unspecified whether [place] or transplanted heart (I25.10) Active confirmed Problem Pure hypercholesterolemia (756776962) Pure hypercholesterolemia (E78.00) Active confirmed Problem Angina co-occurrent and due to coronary arteriosclerosis (43616250451924212) Coronary artery disease of [place] artery of [place] heart with stable angina pectoris (I25.118) Active confirmed Problem Carotid artery occlusion (897389395) Stenosis of carotid artery, unspecified laterality (I65.29) Active confirmed Problem Obesity (878737201) Non morbid o besity (E66.9) Active confirmed Problem History of placement of stent for coronary artery disease (situation) (269222087) S/P coronary artery stent placement (Z95.5) Active confirmed Problem Seasonal allergic rhinitis (166418925) Seasonal allergic rhinitis, unspecified trigger (J30.2) Active confirmed Problem Angina co-occurrent and due to coronary arteriosclerosis (43695069426002409) Coronary artery disease involving qu[place] coronary artery of [place] heart with other form of angina pectoris (I25.118) Active confirmed Vital Signs Heart Rate 61 /min 10/01/2024 Blood pressure diastolic 72 mm Hg 10/01/2024 Height 62 in 10/01/2024 Blood pressure systolic 130 mm Hg 10/01/2024 Weight 188 lbs 10/01/2024 BMI 34.38 kg/m2 10/01/2024 Encounters Encounter Location Date Provider Diagnosis [facility] [address] [place], [place] [id number] 07/12/2024 Jamie [place] Essential hypertensi on I10 ; Pure hypercholesterolemia E78.00 ; Type 2 diabetes mellitus E11.9 ; Acquired hypothyroidism E03.9 ; Vitamin D deficiency E55.9 and Gastroesophageal reflux disease, esophagitis presence not specified K21.9 [facility] [address] [place], [place] [id number] 09/17/2024 Jamie [place] Encounter for immuni zation Z23 and Anemia, unspecified type D64.9 [facility] [address] [facility] [address] [place], [place] [id number] 10/01/2024 Jamie [place] Renal insufficiency N28.9 ; Anemia, unspecified type D64.9 ; Gastroesophageal reflux disease, esophagitis presence not specified K21.9 and Essential hypertension I10 [facility] [address] [place], [place] [id number] 07/13/2024 Jamie [place] [facility] [address] [place] [id number] 10/04/2024 Jamie [place] [facility] [address] [facility] [address] [place], [place] [id number] 2025 Jamie [place] [facility] [address] [facility] [address] [place], [place] [id number] 06/13/2024 Jamie [place] Assessments Encounter Date Diagnosis (ICD Code) Assessment [...] Date [employer] (MEDICAR E) [address] [address] [place] [address] [phone] [id number] TRUEJENIFFER Self - patient is the insured [...] x2 01/2021 Hospitalization History Reason Date(Month/Year) Syncope- [facility] ER 11/03/2020 Syncope, Anemia- [facility] 01/14-01/16/2021 Migraine 07/01/2021
--- OUTSIDE RECORDS SUMMARY | 2025-06-02 12:56 | XMS_ITS | Clinical Summary ---
Author Organization Healthcare Address [address] [place] [address] Care Team Providers Care Marina Sales And Service Supervisor Name Role Phone Jamie Chahal MD Primary Care Provider [phone] Social History Tobacco Use Types Packs/Day Years [...] 2011 UKY-Zoster Vaccines (1 of 2) 2011 MSF-OPADK-65 Vaccine (4 - season) 2024 11/05/2021, 12/18/2020, [...] to complete [place] [id number] ANTH Care Teams Marina Sales And Service Supervisor Relationship Specialty Start Date End Date Jamie Chahal MD [address] [facility] [address] [place] [address] PCP - General 03/30/21
--- OUTSIDE RECORDS SUMMARY | 2025-06-02 12:56 | XMS_ITS | Data Portability ---
Author Organization [facility]EL [facility] [place] Address [address] [facility] [address] [place] [address] Assessment Encounter Date Assessment Date Assessment LastModified [...] ysis, dipsti ck, auto 018 10/12/20 18 [email or web address] Cu/Lc Urology Angelica Lozano, [facility] Angelica Lozano, [place], [address], 8 10:28:36 urinal ysis, dipsti ck, auto 018 06/01/20 18 Cu/ Urology [facility], [address] [facility], [place], [address], 8 13:39:07 Referral None record ed. Procedures None record ed. Surgeries None record ed. Imaging None record ed. Medication Orders None record ed. Patient TargetsNo targets recorded. Patient Instructions Encounter Date Encounter Id Patient Instructions Last Modified By Organization Details Last Modified Time 06/01/2018 [id number] Urinary Tract Infection (UTI) in Women: Care Instructions Not available 06/01/2018 13:39:07 KUB/renal US/ cysto/exam to eval cystocele and sxs. [email or web address] Not available 06/01/2018 13:31:01 10/12/2018 [id number] DOing well. rtc prn. [email or web address] Not available 10/12/2018 10:23:59 Reason for Referral None Reported. Results Created Date Observation Date Name Description Value Unit Range Abnormal Flag Note LastModifiedBy Organization Detail LastModifiedTime 10/12/20 18 10/12/2018 urina lysis , dipst ick, auto Unknown Analyte Yellow Not Available Cu/ U[facility] [address] [facility], [place], [address], 10/12/2018 10:08:21 10/12/20 18 10/12/2018 urina lysis , dipst ick, auto Unknown Analyte Clear Not Available / Urology [facility] [address] [facility], [place], [address], 10/12/2018 10:08:21 10/12/20 18 10/12/2018 urina lysis , dipst ick, auto Unknown Analyte 1.005 Not Available / Urology [facility] [address] [facility], [place], [address], 10/12/2018 10:08:21 10/12/20 18 10/12/2018 urina lysis , dipst ick, auto Unknown Analyte 7.0 Not Available Cu/Lc U[facility] [address] [facility], [place], [address], 10/12/2018 10:08:21 10/12/20 18 10/12/2018 urina lysis , dipst ick, auto Unknown Analyte Negati ve Not Available Cu/Lc Urolo [facility] [address] [facility], [place], [address], 10/12/2018 10:08:21 10/12/20 18 10/12/2018 urina lysis , dipst ick, auto Unknown Analyte Negati ve Not Available Cu/Lc Urol[facility] [address] [facility], [place], [address], 10/12/2018 10:08:21 10/12/20 18 10/12/2018 urina lysis , dipst ick, auto Unknown Analyte Negtiv e Not Available Cu/Lc [facility] [address] [facility], [place], [address], 10/12/2018 10:08:21 10/12/20 18 10/12/2018 urina lysis , dipst ick, auto Unknown Analyte Normal Not Available Cu/[facility] [address] [facility], [place], [address], 10/12/2018 10:08:21 10/12/20 18 10/12/2018 urina lysis , dipst ick, auto Unknown Analyte Negati ve Not Available Cu/Lc [facility] [address] [place], [address], 10/12/2018 10:08:21 10/12/20 18 10/12/2018 urina lysis , dipst ick, auto Unknown Analyte Normal Not Available Cu/[facility] [address] [place], [address], 10/12/2018 10:08:21 10/12/20 18 10/12/2018 urina lysis , dipst ick, auto Unknown Analyte Negati ve Not Available Cu/Lc [facility] [address] [place], [address], 10/12/2018 10:08:21 10/12/20 18 10/12/2018 urina lysis , dipst ick, auto Unknown Analyte Negati ve Not Available Cu/Lc [facility]rol[facility] [address] [facility], [place], [address], 10/12/2018 10:08:21 10/12/20 18 10/12/2018 urina lysis , dipst ick, auto Unknown Analyte Clean Catch Not Available Cu/Lc [facility] [address] [place], [address], 10/12/2018 10:08:21 10/12/20 18 10/12/2018 urina lysis , dipst ick, auto Unknown Analyte Visual Not Available Cu/Lc [facility] [address] [facility], [place], [address], 10/12/2018 10:08:21 06/01/20 18 06/01/2018 urina lysis , dipst ick, auto Unknown Analyte Yellow Not Available [facility] [address] [place], [address], 06/01/2018 13:11:50 06/01/20 18 06/01/2018 urina lysis , dipst ick, auto Unknown Analyte Clear Not Available Cu/[facility] [address] [place], [address], 06/01/2018 13:11:50 06/01/20 18 06/01/2018 urina lysis , dipst ick, auto Unknown Analyte 1.005 Not Available Cu/[facility] [address] [place], [address], 06/01/2018 13:11:50 06/01/20 18 06/01/2018 urina lysis , dipst ick, auto Unknown Analyte 7.0 Not Available Cu/[facility] [address] [facility], [place], [address], 06/01/2018 13:11:50 06/01/20 18 06/01/2018 urina lysis , dipst ick, auto Unknown Analyte Negati ve Not Available Cu/Lc [facility] [address] [facility], [place], [address], 06/01/2018 13:11:50 06/01/20 18 06/01/2018 urina lysis , dipst ick, auto Unknown Analyte Negati ve Not Available Cu/[facility]c [facility] [address] [place], [address], 06/01/2018 13:11:50 06/01/20 18 06/01/2018 urina lysis , dipst ick, auto Unknown Analyte Trace Not Available Cu/Lc [facility] [address] [facility], [place], [address], 06/01/2018 13:11:50 06/01/20 18 06/01/2018 urina lysis , dipst ick, auto Unknown Analyte Normal Not Available Cu/Lc Urology [facility] [address] [place], [address], 06/01/2018 13:11:50 06/01/20 18 06/01/2018 urina lysis , dipst ick, auto Unknown Analyte Negati ve Not Available Cu/Lc [facility] [address] [place], [address], 06/01/2018 13:11:50 06/01/20 18 06/01/2018 urina lysis , dipst ick, auto Unknown Analyte Normal Not Available Cu/[facility] [address] [place], [address], 06/01/2018 13:11:50 06/01/20 18 06/01/2018 urina lysis , dipst ick, auto Unknown Analyte Negati ve Not Available Cu/Lc Urol[facility] [address] [facility], [place], [address], 06/01/2018 13:11:50 06/01/20 18 06/01/2018 urina lysis , dipst ick, auto Unknown Analyte Negati ve Not Available Cu/Lc Urol[facility] [address] [facility], [place], [address], 06/01/2018 13:11:50 06/01/20 18 06/01/2018 urina lysis , dipst ick, auto Unknown Analyte Clean Catch Not Available Cu/Lc Urol[facility] [address] [facility], [place], [address], 06/01/2018 13:11:50 06/01/20 18 06/01/2018 urina lysis , dipst ick, auto Unknown Analyte Automa latricia Not Available Cu/Lc Urol[facility] [address] [facility], [place], [address], 06/01/2018 13:11:50 06/18/20 18 06/18/2018 cytol ogy, [...] 11:25 Page 1 of 1 Not Available [facility] [address] [place] [address], [address], 06/22/2018 11:27:04 06/18/20 18 06/18/2018 urina lysis , dipst ick, auto Unknown Analyte Yellow Not Available [facility] Schedule [address] [place], [address], 06/18/2018 12:28:19 06/18/20 18 06/18/2018 urina lysis , dipst ick, auto Unknown Analyte Clear Not Available [facility] Schedule [address] [place], [address], 06/18/2018 12:28:19 06/18/20 18 06/18/2018 urina lysis , dipst ick, auto Unknown Analyte 1.015 Not Available [facility] Schedule [address] [place] [address], [address], 06/18/2018 12:28:19 06/18/20 18 06/18/2018 urina lysis , dipst ick, auto Unknown Analyte 9.0 Not Available [facility] Schedule [address] [place] [address], [address], 06/18/2018 12:28:19 06/18/20 18 06/18/2018 urina lysis , dipst ick, auto Unknown Analyte 25 Jia/ul Trace Not Available [facility] Surgery Schedule [facility] [place], [address], 06/18/2018 12:28:19 06/18/20 18 06/18/2018 urina lysis , dipst ick, auto Unknown Analyte Negati ve Not Available [facility] Schedule [address] [place] [address], [address], 06/18/2018 12:28:19 06/18/20 18 06/18/2018 urina lysis , dipst ick, auto Unknown Analyte Negtiv e Not Available [facility] Surgery Schedule [facility] [place], [address], 06/18/2018 12:28:19 06/18/20 18 06/18/2018 urina lysis , dipst ick, auto Unknown Analyte Normal Not Available [facility] Schedule [address] [place] [address], [address], 06/18/2018 12:28:19 06/18/20 18 06/18/2018 urina lysis , dipst ick, auto Unknown Analyte Negati ve Not Available [facility] Schedule [address] [place], [address], 06/18/2018 12:28:19 06/18/20 18 06/18/2018 urina lysis , dipst ick, auto Unknown Analyte Normal Not Available [facility] Schedule [address] [place], [address], 06/18/2018 12:28:19 06/18/20 18 06/18/2018 urina lysis , dipst ick, auto Unknown Analyte Negati ve Not Available [facility] Schedule [address] [place] [address], [address], 06/18/2018 12:28:19 06/18/20 18 06/18/2018 urina lysis , dipst ick, auto Unknown Analyte Negati ve Not Available [facility] Schedule [address] [place], [address], 06/18/2018 12:28:19 06/18/20 18 06/18/2018 urina lysis , dipst ick, auto Unknown Analyte Clean Catch Not Available [facility] Schedule [address] [place], [address], 06/18/2018 12:28:19 06/18/20 18 06/18/2018 urina lysis , dipst ick, auto Unknown Analyte Automa latricia Not Available [facility] Schedule [address] [place], [address], 06/18/2018 12:28:19 06/18/20 18 06/18/2018 US, retro perit oneum , limit ed [address] [address] [place] t Name: JENIFFER lion : [birth year] [...] Umberto Grajeda MD on 06/18/20 10:[address] [facility] [address], [address], 06/18/2018 10:26:48 06/18/20 18 06/18/2018 XR, abdom en, [address] [address] Angelo t Name: JENIFFER lion : [birth year] [...] Umberto Grajeda MD on 06/18/20 11:[address], [address], 06/19/2018 10:14:31 Result Notes Documentation Provider Name and Address Organization Details Recorded Time Xr, Abdomen, 1 View : [address] [address] Patient Name: JENIFFER MOURA Patient : 1960 [...] By: Umberto Grajeda MD TER IBARRA MD [address] [place] [address], [address], [facility] 06/19/2018 10:14:31 Procedures Surgical History Date Name Laterality Status Provider Name and Address Organization Details Recorded Time 10/12/20 18 Post Void Residual; Ultrasound completed [facility] 10/12/2018 10:28:20 06/01/20 18 Post Void Residual; Ultrasound completed [facility] 06/01/2018 13:13:10 delivery completed [facility] 06/01/2018 13:09:15 Hysterectomy completed [facility] 06/01/2018 13:09:22 Imaging Results None [...] Updated DateTime 06/01/2018 157.48 cm 31.1 kg/m2 15231.7 g 132/82 mm[Hg] [place] [facility] 06/01/2018 13:07:38 Date Recorded Body height Body mass index (BMI) Body weight Systolic And Diastolic Provider Name and Address Organization Details Last Updated DateTime 10/12/2018 157.48 cm 31.1 kg/m2 64853.7 g 128/80 mm[Hg] [place] [facility] 10/12/2018 10:07:58 Social History Question Answer Notes LastModified by [employer] Details LastModified Time Tobacco Smoking Status Never Smoker Mattie Erickson [facility] 06/01/2018 13:08:45 Marital Status Informatio n not available 06/01/2018 What Was The Date Of Your Most Recent Tobacco Screening? 10/12/2018 Information n ot available 01/04/2020 Sex: Unknown Functional Status Question Answer Note LastModified by [employer] Details LastModified Time What is your level [...] SNOMED-CT Code Diagnosis ICD10 Code Diagnosis Note [id number] MONSTER IBARRA MD UROLOGY [facility] [address] [place] [address] 06/01/2018 12:25:23 06/02/2018 14:45:17 Increased frequency of urination 913302359 R35.0 Urinary tr act infectious disease 97297925 N39.0 Cystocele 568325396 N81. 10 [id number] MONSTER IBARRA MD SURGERY SCHEDULE [address] [place] [address] 06/18/2018 10:16:07 06/18/2018 10:23:15 [id number] MONSTER IBARRA MD UROLOGY [facility] [address] [place] [address] 10/12/2018 09:30:48 10/13/2018 13:25:30 Cystocele 483739473 N81.10 Health Concerns Section Related Observation LastModified by Organization Detai ls LastModified Time None Recorded Concern Status LastModified by Organization Details LastModified Time None Recorded Advance Directives Directive None Recorded Payers Insurance Date Sequence Insurance Name Policy Number Policy Vernon Covered Member ID Vernon Member ID Guarantor Name 10/11/2020 1 [facility] [id number] Jeniffer Gabriel True [id number] Jeniffer True 03/27/2021 PAYMENT PLAN Jeniffer Moura [...] or concerns today. MONSTER IBARRA MD [address] [place], [address], [facility] 06/01/2018 13:39:11 10/12/2018 text/html 58 yo female her e today for follow up with possible bladder prolapse. She is s/p normal cysto on 06/18/2018. She has no complaints or concerns today. She denies any dysuria or gross hematuria. MONSTER IBARRA MD [address] [place], [address], [facility] 10/12/2018 10:30:05 OBGyn Episode No OBEpisode recorded.
[2025-06-02 13:00] VITALS: BP 118/53; PULSE 68; RESP 16; TEMP 36.9; O2SAT 99
[2025-06-02] MEDS: IRON SUCROSE COMPLEX 200 MG in 0.9 % SODIUM CHLORIDE 100 ML 220 MG IV (13:00)
[2025-06-02] MEDS: SODIUM CHLORIDE 0.9% 10ML FLUSH SYRINGE 10 ML IV (13:00)
[2025-06-02 13:35] VITALS: BP 139/63; PULSE 71; RESP 16; TEMP 36.9; O2SAT 99
== END 2025-06-02 13:40 | disposition home or self-care (01) ==
LOC: INF 12:51
PROVIDERS: PCP Nurse Practitioner Family; Visit Provider Nurse Practitioner Family
DX: D50.9 Iron deficiency anemia, unspecified (principal)
CPT/HCPCS: 96365; J1756

== ENCOUNTER 2025-06-09 12:54 | Outpatient (CLI) | payer MEDICARE, SELFPAY ==
--- OUTSIDE RECORDS SUMMARY | 2024-09-17 07:15 | XMS_ITS ---
Author Organization [facility] Address [address] [place] [id number] Care Team Providers Care Robot Operator Name Role Phone [place] Primary Care Provider [phone] Results Component Value Reference Range Notes H-Occult [...] 30 day(s) Active Vitamin D3 250 MCG (56984 UT) 1 cap(s) o rally once a [...] Active Vitamin D (Ergocalciferol) 1 .25 MG (53163 UT) 1 cap(s) orally once a week Active Immunizations Vaccine Route Administration Date Status Comme nts Fluzone Quad (6months&older) IM Intramuscular 09/17/2024 Administered Problems Problem Type SNOMED Code ICD Code Onset Dates Problem Status W/U Status Risk Notes Problem Anemia (171536699) Anemia, unspecified type (D64.9) Active confirmed Encounters Encounter Location Date Provider Diagnosis [facility] [address] [facility] [address] [place] [phone] 09/17/2024 Jamie Chahal Encounter for immunization Z23 and Anemia, unspecified type D64.9 Assessments Encounter Date Diagnosis (ICD Code) Assessment Notes Treatment Notes Treatment Clinical Notes Section Notes 09/17/2024 Encounter for immunization (ICD-10 - Z23) 09/17/2024 Anemia, unspecified type (ICD-10 - D64.9) Plan Of Treatment Next Appt Details Follow Up: 2 Weeks, Reason: Progress Notes * MARTELLJONGUILHERMEB:1960 ( 65 yo F)Acc No.[id number]:09/17/2024 Patient: JENIFFER PETERSON Provider: Marnie Chahal M.D. :1960 A ge:64 Y S ex:Female Date:09/17/2024 Address:[address] [place] [address] [id number] Subjective: * Chief Complaints: [...] , Taking Vitamin D (Ergocalciferol) 1.25 MG (39504 UT) Capsule 1 cap(s) orally once a week , Taking Aspirin 81 MG Tablet Chewable 1 tab(s) chewed once a day , Taking Vitamin D3 250 MCG (62999 UT) Capsule 1 cap(s) orally once a [...] Electronic signature of Brooke Chahal MD on 06/09/2025 at 12:56 PM EDT Sign off status: Pending * Provider: Marnie Chahal M.D. Date: 11/17/2023 Generated for Luisa pizarro/Nolan/Marcela on: 0 06/09/2025 12:56 PM EDT
--- OUTSIDE RECORDS SUMMARY | 2024-10-01 07:15 | XMS_ITS ---
Author Organization [facility] Address [address] [place] [id number] Care Team Providers Care Network Diagnostic Support Specialist Name Role Phone Jamie Chahal Primary Care [...] Interpretation:Normal Performing Lab: Notes/Report: Test performed by [facility] [address] [place] [address] , [address], [place] [address] Johnny Smith MD, Choreography Director CLIA: [id number] Vitamin B12 6797 056-6943 pg/mL P-Basic Metabolic Panel (BMP ) Reviewed date:10/04/2024 11:01:01 AM Interpretation:Creat 1.10, eGFR 56 Performing Lab: Notes/Report: Test performed by [facility] [address] [facility], [place] [address] Johnny Smith MD, Choreography Director CLIA: [id number] Sodium 139 135-145 mmol/L Potassium 4.7 3.5-5.3 mmol/L Chloride 103 97-108 mmol/L CO2 24 22-32 mmol/L Glucose 89 65-99 mg/dL BUN 20 8-23 mg/dL Creatinine 1.10 0.50-1.00 mg/dL Calcium 9.5 8.6-10.4 mg/dL eGFR by Creatinine 56 >59 mL/min/1.73m2 P-Iron with Transferrin Satu ration Reviewed date:10/04/2024 11:01:01 AM Interpretation:Transferrin 375, Trans Sat 12% Performing Lab: Notes/Report: Test performed by [facility] [address] , [place] [address] Johnny Smith MD, Choreography Director CLIA: [id number] Iron 65 37-145 ug/dL Transferrin 375 200-360 mg/dL Transferrin Saturation Percentage 12 15-50 % P-Phosphorus Reviewed date:10/04/2024 11:01:01 AM Interpretation:Normal Performing Lab: Notes/Report: Test performed by [facility] [address] [place] [address], [place] [address] Johnny Smith MD, Choreography Director CLIA: [id number] Phosphorus 4.1 2.5-4.5 mg/dL P-Parathyroid Hormone (PTH) Intact Reviewed date:10/04/2024 11:01:01 AM Interpretation:Normal Performing Lab: Notes/Report: Test performed by [facility] [address] , [place] [address] Johnny Smith MD, Choreography Director CLIA: [id number] Parathyroid Hormone (PTH) Intact 40.9 15.0-65. 0 [...] Active Vitamin D (Ergocalciferol) 1 .25 MG (09306 UT) 1 cap(s) orally once a week Active Spironolactone 25 MG 1 tab(s) orally onc e a day; Duration: 30 day(s) Active Vitamin D3 250 MCG (12439 UT) 1 cap(s) o rally once a week 09/02/2022 Active Vital Signs Blood pressure systolic 130 mm Hg 10/01/20 24 Blood pressure diastolic 72 mm Hg 024 Heart Rate 61 /min 10/01/2024 Height 62 in 10/01/2024 Weight 188 lbs 10/01/2024 BMI 34.38 kg/m2 10/01/2024 Encounters Encounter Location Date Provider Diagnosis [facility] [address] [place] [id number] 10/01/2024 Jamie Chahal Renal insufficiency N28.9 ; [...] Omeprazole 40 MG Take 1 capsule by [facility] once daily for 90 days Next Appt Details Follow Up: via phone to repo rt test results, Reason: Progress Notes * TRUE, JONNDADOB:1960 ( 65 yo F)Acc No.[id number]:10/01/2024 Progress Notes Patient: JENIFFER PETERSON Provider: Marnie Chahal M.D. :1960 A ge:64 Y S ex:Female Date:10/01/2024 Address:[address] [place], [place] [address] [id number] Subjective: * Chief Complaints: * 1 . [...] * Hospitalization/Major Diagno stic Procedure: S yncope- [facility] ER 11/03/2020, Syncope, Anemia- H 01/14-01/16/2021, [...] , Taking Vitamin D (Ergocalciferol) 1.25 MG (78393 UT) Capsule 1 cap(s) orally once a week , Taking Aspirin 81 MG Tablet Chewable 1 tab(s) chewed once a day , Taking Vitamin D3 250 MCG (17944 UT) Capsule 1 cap(s) orally once a [...] AM)?Normal* Value Reference Range V itamin B12 1733 697-3306 - pg/mL * AlecMarina 10/04/2024 11: 00:49 [...] G 2211 Complex e/[place], [address] CBC WITH AUTO DIFF * Follow Up: v ia phone to report test results * Images: Billing Information: * Visit Code: 95524 Office Visit, Est Pt., Level 4. * Procedure Codes: G2211 Complex e/[place]. [address] CBC WITH AUTO DIFF. * Electronic signature of Brooke Chahal MD on 06/09/2025 at 12:56 PM EDT Sign off status: Pending * Provider: Marnie Chahal M.D. Date: 1 12/01/2023 Generated for Luisa pizarro/Nolan/eTransmitting on: 0 06/09/2025 12:56 PM EDT History and Physical Notes * [...]
--- OUTSIDE RECORDS SUMMARY | 2025-01-10 07:00 | XMS_ITS ---
Author Organization [facility] Address [address] [facility] [address] [place] [id number] Care Team Providers Care Hot Billet Shear Operator Name Role Phone Jamie Chahal Primary Care Provider [phone] REASON FOR VISIT 6 month f/u Encounters Encounter Location Date Provider Diagnosis [facility] [facility] [address] [place] [id number] 01/10/2025 Jamie Chahal Plan Of Treatment No Information Progress Notes * YASH MOURAB:1960 ( 65 yo F)Acc No.[id number]:01/10/2025 Progress Notes Patient: JENIFFER PETERSON Provider: Marnie Chahal M.D. :1960 A ge:64 Y S ex:Female Date:01/10/2025 Address:[id number] Subjective: * Chief Complaints: * 1 . 6 month f/u. * Medical History: Objective: * Vitals: Assessment: Plan: * Treatment: * Images: Billing Information: * Visit Code: * Procedure Codes: * Electronic signature of Brooke Chahal MD on 06/09/2025 at 12:57 PM EDT Sign off status: Pending * Provider: Marnie Chahal M.D. Date: 01/10/2025 Generated for Printi ng/Faxing/eTransmitting on: 0 06/09/2025 12:57 PM EDT
--- OUTSIDE RECORDS SUMMARY | 2025-06-09 12:56 | XMS_ITS | Clinical Summary ---
Author Organization Healthcare Address [address] [place] [address] Care Team Providers Care Director Of Philanthropy Name Role Phone Jamie Chahal MD Primary Care Provider [phone] Social History Tobacco Use Types Packs/Day Years [...] 2011 [facility]-Zoster Vaccines (1 of 2) 2011 [facility]-ARRAI-29 Vaccine (4 - season) 2024 11/05/2021, 12/18/2020, [...] to [place] [address] ANTH Care Teams Director Of Philanthropy Relationship Specialty Start Date End Date Jamie Chahal MD [address] [facility] [address] [place] [address] PCP - General 03/30/21
--- OUTSIDE RECORDS SUMMARY | 2025-06-09 12:57 | XMS_ITS | Data Portability ---
Author Organization ABEL Sch[facility] [place] [facility] Address [address] [facility] [address] [place] [address] Assessment Encounter Date Assessment Date Assessment LastModified [...] ysis, dipsti ck, auto 018 10/12/20 18 [email or web address] Cu/Lc Urology Angelica Lozano, [facility] Angelica Lozano, [place], [address], 8 10:28:36 urinal ysis, dipsti ck, auto 018 06/01/20 18 [email or web address] Cu/ Urology [facility], [address] [facility], [place], [address], 8 13:39:07 Referral None record ed. Procedures None record ed. Surgeries None record ed. Imaging None record ed. Medication Orders None record ed. Patient TargetsNo targets recorded. Patient Instructions Encounter Date Encounter Id Patient Instructions Last Modified By Organization Details Last Modified Time 06/01/2018 [id number] Urinary Tract Infection (UTI) in Women: Care Instructions [email or web address] Not available 06/01/2018 13:39:07 KUB/renal US/ cysto/exam to eval cystocele and sxs. [email or web address] Not available 06/01/2018 13:31:01 10/12/2018 [id number] DOing well. rtc prn. [email or web address] Not available 10/12/2018 10:23:59 Reason for Referral None Reported. Results Created Date Observation Date Name Description Value Unit Range Abnormal Flag Note LastModifiedBy Organization Detail LastModifiedTime 10/12/20 18 10/12/2018 urina lysis , dipst ick, auto Unknown Analyte Yellow Not Available Cu/ Urology [address] [facility], [place], [address], 10/12/2018 10:08:21 10/12/20 18 10/12/2018 urina lysis , dipst ick, auto Unknown Analyte Clear Not Available / Urology [facility] [address] [facility], [place], [address], 10/12/2018 10:08:21 10/12/20 18 10/12/2018 urina lysis , dipst ick, auto Unknown Analyte 1.005 Not Available / Urology [facility] [address] [facility], [place], [address], 10/12/2018 10:08:21 10/12/20 18 10/12/2018 urina lysis , dipst ick, auto Unknown Analyte 7.0 Not Available Cu/Lc Urology [address] [facility], [place], [address], 10/12/2018 10:08:21 10/12/20 18 10/12/2018 urina lysis , dipst ick, auto Unknown Analyte Negati ve Not Available Cu/Lc Urolo gy [address] [facility], [place], [address], 10/12/2018 10:08:21 10/12/20 18 10/12/2018 urina lysis , dipst ick, auto Unknown Analyte Negati ve Not Available Cu/Lc Urolo [facility] [address] [facility], [place], [address], 10/12/2018 10:08:21 10/12/20 18 10/12/2018 urina lysis , dipst ick, auto Unknown Analyte Negtiv e Not Available Cu/Lc Urol[facility] [address] [facility], [place], [address], 10/12/2018 10:08:21 10/12/20 18 10/12/2018 urina lysis , dipst ick, auto Unknown Analyte Normal Not Available Cu/Lc Urology [address] [facility], [place], [address], 10/12/2018 10:08:21 10/12/20 18 10/12/2018 urina lysis , dipst ick, auto Unknown Analyte Negati ve Not Available Cu/Lc Urol[facility] [address] [place], [address], 10/12/2018 10:08:21 10/12/20 18 10/12/2018 urina lysis , dipst ick, auto Unknown Analyte Normal Not Available Cu/Lc U[facility] [address] [place], [address], 10/12/2018 10:08:21 10/12/20 18 10/12/2018 urina lysis , dipst ick, auto Unknown Analyte Negati ve Not Available Cu/Lc Urolo [facility] [address] [place], [address], 10/12/2018 10:08:21 10/12/20 18 10/12/2018 urina lysis , dipst ick, auto Unknown Analyte Negati ve Not Available Cu/Lc Urolo [facility] [address] [facility], [place], [address], 10/12/2018 10:08:21 10/12/20 18 10/12/2018 urina lysis , dipst ick, auto Unknown Analyte Clean Catch Not Available Cu/Lc Urolo [facility] [address] [place], [address], 10/12/2018 10:08:21 10/12/20 18 10/12/2018 urina lysis , dipst ick, auto Unknown Analyte Visual Not Available Cu/Lc Urology [address] [facility], [place], [address], 10/12/2018 10:08:21 06/01/20 18 06/01/2018 urina lysis , dipst ick, auto Unknown Analyte Yellow Not Available Cu/Lc U[facility] [address] [place], [address], 06/01/2018 13:11:50 06/01/20 18 06/01/2018 urina lysis , dipst ick, auto Unknown Analyte Clear Not Available Cu/Lc U[facility] [address] [place], [address], 06/01/2018 13:11:50 06/01/20 18 06/01/2018 urina lysis , dipst ick, auto Unknown Analyte 1.005 Not Available Cu/Lc Urology [address] [place], [address], 06/01/2018 13:11:50 06/01/20 18 06/01/2018 urina lysis , dipst ick, auto Unknown Analyte 7.0 Not Available Cu/Lc Urology [address] [facility], [place], [address], 06/01/2018 13:11:50 06/01/20 18 06/01/2018 urina lysis , dipst ick, auto Unknown Analyte Negati ve Not Available Cu/Lc Urol[facility] [address] [facility], [place], [address], 06/01/2018 13:11:50 06/01/20 18 06/01/2018 urina lysis , dipst ick, auto Unknown Analyte Negati ve Not Available Cu/Lc Urol[facility] [address] [place], [address], 06/01/2018 13:11:50 06/01/20 18 06/01/2018 urina lysis , dipst ick, auto Unknown Analyte Trace Not Available Cu/Lc Urology [address] [facility], [place], [address], 06/01/2018 13:11:50 06/01/20 18 06/01/2018 urina lysis , dipst ick, auto Unknown Analyte Normal Not Available Cu/Lc Urology [facility] [address] [place], [address], 06/01/2018 13:11:50 06/01/20 18 06/01/2018 urina lysis , dipst ick, auto Unknown Analyte Negati ve Not Available Cu/Lc Urol[facility] [address] [place], [address], 06/01/2018 13:11:50 06/01/20 18 06/01/2018 urina lysis , dipst ick, auto Unknown Analyte Normal Not Available Cu/Lc U[facility] [address] [place], [address], 06/01/2018 13:11:50 06/01/20 18 06/01/2018 urina lysis , dipst ick, auto Unknown Analyte Negati ve Not Available Cu/Lc Urolo [facility] [address] [facility], [place], [address], 06/01/2018 13:11:50 06/01/20 18 06/01/2018 urina lysis , dipst ick, auto Unknown Analyte Negati ve Not Available Cu/Lc Urolo [facility] [address] [facility], [place], [address], 06/01/2018 13:11:50 06/01/20 18 06/01/2018 urina lysis , dipst ick, auto Unknown Analyte Clean Catch Not Available Cu/Lc Urolo [facility] [address] [facility], [place], [address], 06/01/2018 13:11:50 06/01/20 18 06/01/2018 urina lysis , dipst ick, auto Unknown Analyte Automa latricia Not Available Cu/Lc Urolo gy [address] [facility], [place], [address], 06/01/2018 13:11:50 06/18/20 18 06/18/2018 cytol ogy, [...] 11:25 Page 1 of 1 Not Available [facility] [address] [place] [address], [address], 06/22/2018 11:27:04 06/18/20 18 06/18/2018 urina lysis , dipst ick, auto Unknown Analyte Yellow Not Available [facility] [address] [place], [address], 06/18/2018 12:28:19 06/18/20 18 06/18/2018 urina lysis , dipst ick, auto Unknown Analyte Clear Not Available [facility] [address] [place], [address], 06/18/2018 12:28:19 06/18/20 18 06/18/2018 urina lysis , dipst ick, auto Unknown Analyte 1.015 Not Available [facility] Schedule [address] [place] [address], [address], 06/18/2018 12:28:19 06/18/20 18 06/18/2018 urina lysis , dipst ick, auto Unknown Analyte 9.0 Not Available [facility] Schedule [address] [place] [address], [address], 06/18/2018 12:28:19 06/18/20 18 06/18/2018 urina lysis , dipst ick, auto Unknown Analyte 25 Jia/ul Trace Not Available [facility] Surgery Schedule [facility] [place], [address], 06/18/2018 12:28:19 06/18/20 18 06/18/2018 urina lysis , dipst ick, auto Unknown Analyte Negati ve Not Available [facility] Surgery Schedule [address] [place] [address], [address], 06/18/2018 12:28:19 06/18/20 18 06/18/2018 urina lysis , dipst ick, auto Unknown Analyte Negtiv e Not Available [facility] Surgery Schedule [facility] [place], [address], 06/18/2018 12:28:19 06/18/20 18 06/18/2018 urina lysis , dipst ick, auto Unknown Analyte Normal Not Available [facility] Schedule [address] [place] [address], [address], 06/18/2018 12:28:19 06/18/20 18 06/18/2018 urina lysis , dipst ick, auto Unknown Analyte Negati ve Not Available [facility] Surgery Schedule [address] [place], [address], 06/18/2018 12:28:19 06/18/20 18 06/18/2018 urina lysis , dipst ick, auto Unknown Analyte Normal Not Available [facility] Schedule [address] [place], [address], 06/18/2018 12:28:19 06/18/20 18 06/18/2018 urina lysis , dipst ick, auto Unknown Analyte Negati ve Not Available [facility] Surgery Schedule [address] [place] [address], [address], 06/18/2018 12:28:19 06/18/20 18 06/18/2018 urina lysis , dipst ick, auto Unknown Analyte Negati ve Not Available [facility] Surgery Schedule [address] [place], [address], 06/18/2018 12:28:19 06/18/20 18 06/18/2018 urina lysis , dipst ick, auto Unknown Analyte Clean Catch Not Available [facility] Surgery Schedule [address] [place], [address], 06/18/2018 12:28:19 06/18/20 18 06/18/2018 urina lysis , dipst ick, auto Unknown Analyte Automa latricia Not Available [facility] Surgery Schedule [address] [place], [address], 06/18/2018 12:28:19 06/18/20 18 06/18/2018 US, retro perit oneum , limit ed [address] [address] [place] t Name: JENIFFER lion : [birth year] [...] Umberto Grajeda MD on 06/18/20 10:[address] Radiology [address], [address], 06/18/2018 10:26:48 06/18/20 18 06/18/2018 XR, abdom en, [address] [address] [place]o t Name: JENIFFER lion : [birth year] [...] Umberto Grajeda MD on 06/18/20 11:[address] Radiology [address], [address], 06/19/2018 10:14:31 Result Notes Documentation Provider Name and Address Organization Details Recorded Time Xr, Abdomen, 1 View : [address] [address] Patient Name: JENIFFER MOURA Patient : 1960 [...] By: Umberto Grajeda MD TER IBARRA MD [address] [place] [address], [address], [facility] 06/19/2018 10:14:31 Procedures Surgical History Date Name Laterality Status Provider Name and Address Organization Details Recorded Time 10/12/20 18 Post Void Residual; Ultrasound completed [facility] 10/12/2018 10:28:20 06/01/20 18 Post Void Residual; Ultrasound completed [facility] 06/01/2018 13:13:10 delivery completed [facility] 06/01/2018 13:09:15 Hysterectomy completed [facility] 06/01/2018 13:09:22 Imaging Results None [...] Updated DateTime 06/01/2018 157.48 cm 31.1 kg/m2 88118.7 g 132/82 mm[Hg] [place] [facility] 06/01/2018 13:07:38 Date Recorded Body height Body mass index (BMI) Body weight Systolic And Diastolic Provider Name and Address Organization Details Last Updated DateTime 10/12/2018 157.48 cm 31.1 kg/m2 10977.7 g 128/80 mm[Hg] [place] [facility] 10/12/2018 10:07:58 Social History Question Answer Notes LastModified by iYogi Details LastModified Time Tobacco Smoking Status Never Smoker Mattie Erickson [facility] 06/01/2018 13:08:45 Marital Status Informatio n not available 06/01/2018 What Was The Date Of Your Most Recent Tobacco Screening? 10/12/2018 Information n ot available 01/04/2020 Sex: Unknown Functional Status Question Answer Note LastModified by iYogi Details LastModified Time What is your level [...] SNOMED-CT Code Diagnosis ICD10 Code Diagnosis Note [id number] MONSTER IBARRA MD UROLOGY [facility] [address] [place] [address] 06/01/2018 12:25:23 06/02/2018 14:45:17 Increased frequency of urination 963472887 R35.0 Urinary tr act infectious disease 93913756 N39.0 Cystocele 295558015 N81. 10 [id number] MONSTER IBARRA MD SURGERY SCHEDULE [address] [place] [address] 06/18/2018 10:16:07 06/18/2018 10:23:15 [id number] MONSTER IBARRA MD UROLOGY [facility] [address] [place] [address] 10/12/2018 09:30:48 10/13/2018 13:25:30 Cystocele 817102311 N81.10 Health Concerns Section Related Observation LastModified by Organization Detai ls LastModified Time None Recorded Concern Status LastModified by Organization Details LastModified Time None Recorded Advance Directives Directive None Recorded Payers Insurance Date Sequence Insurance Name Policy Number Policy Vernon Covered Member ID Vernon Member ID Guarantor Name 10/11/2020 1 [facility] [id number] Jeniffer Gabriel True [id number] Jeniffer True 03/27/2021 PAYMENT PLAN Jeniffer Moura [...] or concerns today. MONSTER IBARRA MD [address] [place], [address], [facility] 06/01/2018 13:39:11 10/12/2018 text/html 58 yo female here today for follow up with possible bladder prolapse. She is s/p normal cysto on 06/18/2018. She has no complaints or concerns today. She denies any dysuria or gross hematuria. MONSTER IBARRA MD [address] [place], [address], [facility] 10/12/2018 10:30:05 OBGyn Episode No OBEpisode recorded.
--- OUTSIDE RECORDS SUMMARY | 2025-06-09 12:57 | XMS_ITS | Patient Health Record ---
[facility] [address] [place] [id number] Care Team Providers Care Net Mender Name Role Phone Jamie Chahal Primary Care Provider [phone] Allergies Allergen (clinical drug ingredient) Drug/Non Drug Allergy documented on EMR Reaction Allergy Type Onset Date Status dexamethasone Dexamethasone Unknown Drug Allergy Active triamcinolone Triamcinolone Unknown Drug Allergy Active Results Component Value Reference Range Notes H-Occult Blood, Stool Reviewed date:09/20/2024 03:49:50 PM Interpretation: Negative Performing Lab: Notes/Report: OB Negative Negative CBC Venipuncture (in house) Reviewed date:10/04/2024 11:01:01 [...] Interpretation:Normal Performing Lab: Notes/Report: Test performed by [facility] [facility] , [address], [place] [address] Johnny Smith MD, Box Blank Machine Operator Helper CLIA: [id number] Vitamin B12 6578 841-8380 pg/mL P-Basic Metabolic Panel (BMP ) Reviewed date:10/04/2024 11:01:01 AM Interpretation:Creat 1.10, eGFR 56 Performing Lab: Notes/Report: Test performed by [facility] [address] [place] [address] , [address], [place] [address] Johnny Smith MD, Box [employer] Machine Operator Helper CLIA: [id number] Sodium 139 135-145 mmol/L Potassium 4.7 3.5-5.3 mmol/L Chloride 103 97-108 mmol/L CO2 24 22-32 mmol/L Glucose 89 65-99 mg/dL BUN 20 8-23 mg/dL Creatinine 1.10 0.50-1.00 mg/dL Calcium 9.5 8.6-10.4 mg/dL eGFR by Creatinine 56 >59 mL/min/1.73m2 P-Iron with Transferrin Satu ration Reviewed date:10/04/2024 11:01:01 AM Interpretation:Transferrin 375, Trans Sat 12% Performing Lab: Notes/Report: Test performed by [facility] [address] [place] [address] , [address], [place] [address] Johnny Smith MD, Box [employer] Machine Operator Helper CLIA: [id number] Iron 65 37-145 ug/dL Transferrin 375 200-360 mg/dL Transferrin Saturation Percentage 12 15-50 % P-Phosphorus Reviewed date:10/04/2024 11:01:01 AM Interpretation:Normal Performing Lab: Notes/Report: Test performed by [facility] [address] [place] [address] , [address], [place] [address] Johnny Smith MD, Box Blank Machine Operator Helper CLIA: [id number] Phosphorus 4.1 2.5-4.5 mg/dL P-Parathyroid Hormone (PTH) Intact Reviewed date:10/04/2024 11:01:01 AM Interpretation:Normal Performing Lab: Notes/Report: Test performed by [facility] [address] [place] [address] , [address], [place] [address] Johnny Smith MD, Box Blank Machine Operator Helper CLIA: [id number] Parathyroid Hormone (PTH) Intact 40.9 15.0-65.0 pg/mL Glucose (In-House) Reviewed date:07/13/2024 09:54:17 AM Interpretation:136 Performing Lab: Notes/Report: 136 blood glucose 136 74 - 106 mg/dL Glycohemoglobin A1c (in hous e) Reviewed date:07/13/2024 09:54:17 AM Interpretation:5.8% Normal Performing Lab: Notes/Report: 5.8% Normal glycohemoglobin 5.8% 5 - 6.5 % P-Comprehensive Metabolic Pa bryce ([facility]) Reviewed date:07/13/2024 09:54:17 AM Interpretation:gluc 102, Cr 1.11, gfr 56 Performing Lab: Notes/Report: Test performed by [facility] [address] [place], [place] [address] [address] , [address], [place] [address] Johnny Smith MD, Box Blank Machine Operator Helper CLIA: [id number] Sodium 138 135-145 mmol/L Potassium 4.8 3.5-5.3 [...] Normal Performing Lab: Notes/Report: Test performed by [facility] [address] [place], [place] [address] [place] , [address], [place] [id number] Johnny Smith MD, Box Blank Machine Operator Helper CLIA: [id number] Thyroxine Free (free T4) 1.48 0.86-1.76 ng/dL P-Lipid Panel Reviewed date:07/13/2024 09:54:17 AM Interpretation: Normal Performing Lab: Notes/Report: Test performed by [facility] [address] [place] [address] [place] [address] Johnny Smith MD, Box Blank Machine Operator Helper CLIA: [id number] Cholesterol 135 <200 mg/dL Triglycerides 79 <150 [...] Normal Performing Lab: Notes/Report: Test performed by [facility] [address] [place] [address] [place] [address] Johnny Smith MD, Box Blank Machine Operator Helper CLIA: [id number] TSH 0.65 0.43-5.25 mU/L P-Microalbumin/Creatinine, R andom Urine Sample Reviewed date:07/13/2024 09:54:17 AM Interpretation:satisfactory Performing Lab: Notes/Report: Test performed by [facility], [address] , [place] , [place] [address] Johnny Smith MD, Box Blank Machine Operator Helper CLIA: [id number] Albumin/Creatinine Ratio, Urine See Comment 0-30 ug/mg Unable to calculate Urine Albumin/Creatinine Ratio when urine creatinine or urine albumin fall outside established reportable range. Microalbumin, Urine, Random <0.3 Creatinine, Urine 59.4 P-Vitamin D 25-Hydroxy Reviewed date:07/13/2024 09:54:17 AM Interpretation:36.8 Performing Lab: Notes/Report: Test performed by [facility], [address] [place] [address], [place] [address] Johnny Smith MD, Box Blank Machine Operator Helper CLIA: [id number] Vitamin D 25-Hydroxy 36.8 30.0-100.0 ng/mL Interpretation [...] 30 days Active Vitamin D3 250 MCG (65583 UT) 1 cap(s) o rally once a week 09/02/2022 Active Folic Acid 1 MG 1 tab(s) orally once a day; Duration: 30 days Active Aspirin 81 MG 1 tab(s) chewed once a day; Duration: 30 day(s) Active Vitamin D (Ergocalciferol) 1 .25 MG (92886 UT) 1 cap(s) orally once a week [...] W/U Status Risk Notes Problem Essential hypertension (29764404) Essential (primary) hypertension (I10) Active confirmed Problem Type 2 diabetes mellitus (02016299) Type 2 diabetes mellitus (E11.9) Active confirmed Problem Vitamin D deficiency (46625087) Vitamin D deficiency (E55.9) Active confirmed Problem Essential hypertension (70440992) Essential hypertension (I10) Active confirmed Problem Unstable angina (0525138) Unstable angina (I20.0) Active confirmed Problem Carotid artery occlusion (616762305) Occlusion and stenosis of unspecified carotid artery (I65.29) Active confirmed Problem Chronic maxillary sinusitis (25228061) Chronic maxillary sinusitis (J32.0) Active confirmed Problem Sciatica (23831638) Lumbago with sciatica, left side (M54.42) Active confirmed Problem Chronic pain (96925924) Other chronic pain (G89.29) Active confirmed Problem Restless legs (42227436) Restless leg (G25.81) Active confirmed Problem Acquired hypothyroidism (991927670) Acquired hypothyroidism (E03.9) Active confirmed Problem Atherosclerotic hear t disease of [place] coronary artery without angina pectoris (417777859277273) Coronary artery disease involving [place] coronary artery of [place] heart without angina pectoris (I25.10) Active confirmed Problem Gastroesophageal reflux disease (855546918) Gastroesophageal reflux disease, esophagitis presence not specified (K21.9) Active confirmed Problem Migraine (46833517) Migraine wit hout status migrainosus, not intractable, unspecified migraine type (G43.909) Active confirmed Problem Anemia (770015114) Anemia, unspe cified type (D64.9) Active confirmed Problem Hyperlipidaemia (42269224) Hyperlipidemia, unspecified hyperlipidemia type (E78.5) Active confirmed Problem Hypothyroidism (34849135) Hypothyroidism, unspecified type (E03.9) Active confirmed Problem Stented coronary artery (538966365) Stented coronary artery (Z95.5) Active confirmed Problem Impaired fasting glycaemia (460716093) IFG (impaired fasting glucose) (R73.01) Active confirmed Problem Atherosclerotic hear t disease of [place] coronary artery without angina pectoris (432270827322340) Atherosclerosis of [place] coronary artery without angina pectoris, unspecified whether [place] or transplanted heart (I25.10) Active confirmed Problem Pure hypercholesterolemia (068461296) Pure hypercholesterolemia (E78.00) Active confirmed Problem Angina co-occurrent and due to coronary arteriosclerosis (93204693136398775) Coronary artery disease of [place] artery of [place] heart with stable angina pectoris (I25.118) Active confirmed Problem Carotid artery occlusion (578038241) Stenosis of carotid artery, unspecified laterality (I65.29) Active confirmed Problem Obesity (882299121) Non morbid o besity (E66.9) Active confirmed Problem History of placement of stent for coronary artery disease (situation) (085645079) S/P coronary artery stent placement (Z95.5) Active confirmed Problem Seasonal allergic rhinitis (890988887) Seasonal allergic rhinitis, unspecified trigger (J30.2) Active confirmed Problem Angina co-occurrent and due to coronary arteriosclerosis (38504276869596613) Coronary artery disease involving [place] coronary artery of [place] heart with other form of angina pectoris (I25.118) Active confirmed Vital Signs Heart Rate 61 /min 10/01/2024 Blood pressure diastolic 72 mm Hg 10/01/2024 Height 62 in 10/01/2024 Blood pressure systolic 130 mm Hg 10/01/2024 Weight 188 lbs 10/01/2024 BMI 34.38 kg/m2 10/01/2024 Encounters Encounter Location Date Provider Diagnosis [facility] [address] [place], [place] [id number] 07/12/2024 Jamie Harrington Essential hypertensi on I10 ; Pure hypercholesterolemia E78.00 ; Type 2 diabetes mellitus E11.9 ; Acquired hypothyroidism E03.9 ; Vitamin D deficiency E55.9 and Gastroesophageal reflux disease, esophagitis presence not specified K21.9 [facility] [address] [place], [place] [id number] 09/17/2024 Jamie Harrington Encounter for immuni zation Z23 and Anemia, unspecified type D64.9 [facility] [address] [facility] [address] [place], [place] [id number] 10/01/2024 Jamie Harrington Renal insufficiency N28.9 ; Anemia, unspecified type D64.9 ; Gastroesophageal reflux disease, esophagitis presence not specified K21.9 and Essential hypertension I10 [facility] [address] [place], [place] [id number] 07/13/2024 Jamie Harrington [facility] [address] [place], [place] [id number] 10/04/2024 Jamie Harrington [facility] [address] [facility] [address] [place], [place] [id number]25 Jamie Harrington [facility] [address] [facility] [address] [place] [id number] 06/13/2024 Jamie Harrington Assessments Encounter Date Diagnosis (ICD Code) Assessment [...] Date [employer] (MEDICAR E) [address] [address] [place] [address] [id number] TRUEJENIFFER Self - patient is the insured [...] x2 01/2021 Hospitalization History Reason Date(Month/Year) Syncope- [facility] ER 11/03/2020 Syncope, Anemia- [facility] 01/14-01/16/2021 Migraine 07/01/2021
--- OUTSIDE RECORDS SUMMARY | 2025-06-09 12:57 | XMS_ITS | Clinical Summary ---
Author Organization [facility] Address [address] [place] [address] Care Team Providers Care Chairperson Anesthesiology Name Role Phone Jamie Chahal MD Primary Care Provider + [phone] Allergies Active Allergy Reactions Criticality Noted Date Comments Dexamethasone Rash Low 07/01/2021 Medications atenolol (TENORMIN) 25 MG tablet Take 25 mg by mouth Daily. Active levothyroxine (SYNTHROID, LEVOTHROID) 100 MCG tablet Take 100 mcg by mouth Daily. Active rOPINIRole (REQUIP) 0.25 MG tablet Take 0.25 mg by mouth Every Night. Take 1 hour before bedtime. Active omeprazole (priLOSEC) 20 MG capsule Take 20 mg by mouth Daily. Active hydroCHLOROthiaz kym (HYDRODIURIL) 25 MG tablet Take 25 mg by mouth Daily. Active losartan (COZAAR) 50 MG tablet Take 50 mg by mouth Daily. Active atorvastatin (LIPITOR) 40 MG tablet Take 40 mg by mouth Daily. Active clopidogrel (PLAVIX) 75 MG tablet Take 75 mg by mouth Daily. Active isosorbide mononitrate (IMDUR) 30 MG 24 hr tablet Take 30 mg by mouth Daily. Active potassium chloride (K-DUR,KLOR-CON) 10 MEQ CR tablet Take 10 mEq by mouth 2 (Two) Times a Day. Active aspirin 81 MG chewable tablet Chew 81 mg Daily. Active Social History Tobacco Use Types Packs/Day Years Used Date Smoking Tobacco: Never Smokeless Tobacco: Never Alcohol Use Standard Drinks/Week Comments Never 0 (1 standard drink = 0.6 oz pur e alcohol) AUDIT-C Answer Date Recorded Q1: How often do you have a drink containing alc ohol? Never 07/01/2021 Average Number of Drinks Not on file 021 Frequency of Binge Drinking Not on file 06/17 Abuse Screen Answer Date Recorded Unsafe at Home or Work/School Not on file Feels Threatened by Someone? Not on file 08/2023 Does Anyone Keep You from Co ntacting Others or Doint Things Outside the Home? Not on file 08/26/2023 Physical Sign of Abuse Present Not on file 1 Housing Stability Answer Date Recorded Current Living Arrangements Not on file 08/17 Potentially Unsafe Housing Conditions Not on aurora e 08/26/2023 Family and Community Support Answer Mateo e Recorded Help with Day-to-Day Activities Not on file 08/26/2023 Lonely or Isolated Not on file 08/26/2023 Employment Answer Date Recorded Do you want help finding or keeping work or a maggi b? Not on file 08/26/2023 Disabilities Answer Date Recorded Concentrating, Remembering, or Making Decisions Difficulty Not on file 08/26/2023 Doing Errands Independently Difficulty Not on fi le 08/26/2023 Education Answer Date Recorded Help with school or training? Not on file Preferred Language Not on file 08/26/2023 Comments Unknown Sex and Gender Information Value Date Recorded Sex Assigned at Not on file Legal Sex Female 1:48 PM EDT Gender Identity Not on file Sexual Orientation Not on file Last Filed Vital Signs Vital Sign Reading Time Taken Comments Blood Pressure 133/61 07/01/2021 3:20 PM EDT Pulse 62 07/01/2021 3:32 PM EDT Temperature 36.6 C (97.8 F) 07/01/2021 11:17 AM EDT Respiratory Rate 18 07/01/2021 11:17 AM EDT Oxygen Saturation 96% 07/01/2021 3:32 PM EDT Inhaled Oxygen Concentration - - Weight 86.2 kg (190 lb) 07/01/2021 11:17 AM EDT Height 157.5 cm (5' 2 ) 07/01/2021 11:17 AM EDT Body Mass Index 34.75 07/01/2021 11:17 AM EDT Plan of Treatment Health Maintenance Due Date Last Done Comments ANNUAL PHYSICAL 1961 Annual Gynecologic Pelvic and Breast Exam 1961 HEPATITIS C SCREENING 1961 TDAP/TD VACCINES (1 - Tdap) 1980 MAMMOGRAM 2001 COLOGUARD 2006 COLON CANCER SCREENING 5 YEA R SIGMOIDOSCOPY 2006 COLONOSCOPY 2006 COLORECTAL CANCER SCREENING 2006 CT COLONOGRAPHY 2006 FECAL OCCULT BLOOD TEST 2006 FIT Testing (1 year) 2006 Pneumococcal Vaccine 50+ (1 of 1 - PCV) 2011 ZOSTER VACCINE (1 of 2) 2011 COVID-19 Vaccine (3 - season) 07/18/202411/2020, 11/16/2020 INFLUENZA VACCINE 08/17/2025 Insurance EMPLOYEE Care Teams Chairperson Anesthesiology Relationship Specialty Start Date End Date Jamie Chahal MD [address] [facility] [address] [place] [id number] PCP - General Family Medicine 07/01/21
[2025-06-09 13:09] VITALS: BP 128/57; PULSE 67; RESP 18; TEMP 36.6; O2SAT 98
[2025-06-09] MEDS: IRON SUCROSE COMPLEX 200 MG in 0.9 % SODIUM CHLORIDE 100 ML 220 MG IV (13:09)
[2025-06-09] MEDS: SODIUM CHLORIDE 0.9% 10ML FLUSH SYRINGE 10 ML IV (13:10)
[2025-06-09 13:50] VITALS: BP 119/54; PULSE 66; RESP 20; O2SAT 98
== END 2025-06-09 13:50 | disposition home or self-care (01) ==
LOC: INF 12:54
PROVIDERS: PCP Nurse Practitioner Family; Visit Provider Nurse Practitioner Family
DX: D50.9 Iron deficiency anemia, unspecified (principal)
CPT/HCPCS: 96365; J1756

== ENCOUNTER 2025-07-11 06:16 | Day surgery (SDC) | payer MEDICARE, SELFPAY ==
[2025-07-06 09:43] VITALS: BMI 34.7
[2025-07-11 06:53] VITALS: BP 131/43; PULSE 58; RESP 18; TEMP 36.3; O2SAT 98
[2025-07-11] MEDS: LACTATED RINGERS 1000ML 1,000 ML 50 ML IV (07:07)
[2025-07-11 07:11] LABS: POC Glucose,Bedside 127 (70-110)
--- NOTE | 2025-07-11 07:27 | EXP.HP ---
History of Present Illness *Admission Date: 07/11/25 *History of present illness: Mrs. Evans is a 65-year-old female who is here for screening colonoscopy. She does have a history of iron deficiency anemia. The examination is deemed medically necessary for screening colonoscopy. The patient has been seen, interviewed and examined prior to the procedure by both myself and the anesthesia provider. [facility] Disclaimer: The information contained in this section may have been updated after the patient was seen, as this information can be updated by other users. Medical History Allergies Anemia BMI 36.0-36.9,adult CAD (coronary artery disease) Chest pain Cholelithiasis Coronary artery disease COVID-19 Dizziness Encounter for hepatitis C screening test for low risk patient Encounter to establish care GERD (gastroesophageal reflux disease) History of chest pain History of left heart catheterization History of syncope HLD (hyperlipidemia) Hypertension Hyponatremia Hypotension Migraine Minor head injury without loss of consciousness JATIN (obstructive sleep apnea) Mild JATIN with excellent compliance and symptomatic improvement on CPAP Pyelonephritis Renal insufficiency Restless leg syndrome Right maxillary sinusitis Screening for HIV (human immunodeficiency virus) Sinus bradycardia Syncope Thyroid Nodule Unstable angina UTI (urinary tract infection) Vasovagal syncope Surgical History H/O colonoscopy H/O: hysterectomy History of section History of coronary artery stent placement Family History Other Coronary artery disease Family history of cancer Family history of diabetes mellitus type II Family history of hypertension Social History (Updated 07/11/25 @ 06:56 by Jihan Mercer RN) Smoking Status: Former smoker second hand exposure: No alcohol intake: never substance use type: denies use current occupational status: retired Travel in the last 8 weeks?: None household members: spouse housing: house 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 current occupational exposures/hazards: No caffeine: Yes Have you lived/traveled outside US in past 30 days?: No Contact w/someone who lives/traveled outside US past 30 days?: No Exposure to someone with infectious disease in past 14 days?: No Do you have a fever (greater than 100.4 F or 38 C)?: No Have you tested positive for COVID-19?: No Exposed to someone with COVID-19 in past 14 days?: No Do you have a sore throat?: No Do you have a cough?: No Do you have any weakness?: No Are you experiencing any nausea/vomitting?: No Do you have any diarrhea?: No Are you experiencing any unusual bleeding?: No Do you have any muscle aches/pain?: No Do you have any abdominal pain?: No Are you experiencing loss of taste or smell?: No Other Medical History Have you received the Flu Vaccine for this season: No Have you received the Pneumonia Vaccine: No Review of Systems Review of Systems Review of systems (narrative): Negative *Cardiovascular Comments: Negative *Gastrointestinal Comments: Negative *Genitourinary Comments: Negative *Musculoskeletal Comments: Negative *Neurologic Comments: Negative Meds Home Medications and Allergies Home Medications ?Medication ?Instructions ?Recorded ?Confirmed ?Type magnesium oxide 400 mg PO DAILY Supplement 06/05/21 07/11/25 History mecobalamin (vitamin B12) 1,000 1,000 mcg PO DAILY Supplement 06/05/21 07/11/25 History mcg chewable tablet spironolactone 25 mg tablet 25 mg PO DAILY . #30 tabs 07/03/22 07/11/25 Rx aspirin 81 mg chewable tablet 81 mg PO DAILY 07/11/22 07/11/25 History hydrochlorothiazide 12.5 mg tablet 12.5 mg PO DAILY #90 tabs 09/07/24 07/11/25 Rx atenolol 25 mg tablet 25 mg PO DAILY #90 tabs 12/27/24 07/11/25 Rx atorvastatin 40 mg tablet 40 mg PO HS #90 tabs 12/31/24 07/11/25 Rx cholecalciferol (vitamin D3) 50 50 mcg PO DAILY #90 caps 12/31/24 07/11/25 Rx mcg (2,000 unit) capsule metformin 500 mg tablet,extended 500 mg PO DAILY #90 tabs 12/31/24 07/11/25 Rx release 24 hr levothyroxine 88 mcg tablet 88 mcg PO QAM #90 tabs 01/05/25 07/11/25 Rx folic acid 1 mg tablet 1 mg PO DAILY Supplement #90 tabs 02/27/25 07/11/25 Rx isosorbide mononitrate 30 mg 15 mg (1/2 x 30 mg) PO DAILY chest 03/22/25 07/11/25 Rx tablet,extended release 24 hr pain #30 tabs losartan 50 mg tablet 50 mg PO DAILY 03/28/25 07/11/25 History rimegepant 75 mg disintegrating 75 mg PO Q OTHER DAY PRN Migraine 03/28/25 07/11/25 History tablet (Nurtec ODT) Headache ropinirole 0.25 mg tablet 0.25 mg PO HS 03/28/25 07/11/25 History famotidine 20 mg tablet 40 mg PO HS 06/29/25 07/11/25 History trazodone 50 mg tablet 50 mg PO HS PRN insomnia #90 tabs 06/29/25 07/11/25 Rx triamcinolone acetonide 0.5 % 1 applic topical BID #15 grams 06/29/25 07/11/25 Rx topical cream New Prescriptions to Start Prescriptions: Allergies Allergy/AdvReac Type Severity Reaction Status Date / Time dexamethasone (DEXAMETHASONE) Allergy Unknown Other Verified 07/11/25 07:10 triamcinolone (From KENALOG) Allergy Unknown Other Verified 07/11/25 07:10 Exam Data for Last 24 hours Vital signs and Labs for Last 24 Hours: Temp Pulse Resp BP Pulse Ox O2 Del Method 97.3 F L 58 L 18 131/43 L 98 Room Air 07/11/25 06:53 07/11/25 06:53 07/11/25 06:53 07/11/25 06:53 07/11/25 06:53 07/11/25 06:53 Laboratory Results - last 24 hr 07/11/25 07:03: POC Glucose 127 H I & O for Last 24 hours: Intake & Output 07/08/25 07/09/25 07/10/25 07/11/25 23:59 23:59 23:59 23:59 Weight 190 lb *Routine HEENT Exam Head: Present normocephalic Eye: Present EOMI and PERRL ENT: Present mucous membranes moist *Routine Neck Exam Neck: Present supple *Routine Respiratory Exam Respiratory: Present CTA bilaterally *Routine Cardiovascular Exam Cardiovascular: Present RRR *Routine Abdominal Exam Abdominal: Present soft and normoactive bowel sounds; Absent tenderness *Routine Rectal Exam Rectal:: deferred *Routine Genitalia Exam Genitalia:: deferred *Routine Extremities Exam Extremities: Absent cyanosis, clubbing or edema *Routine Skin Exam Skin: Present warm; Absent rash *Routine Neurological Exam Neurological: Present alert and oriented X3 Assessment and Plan *Assessment and plan (1) Colon cancer screening: Status: Acute Category: Medical Code(s): Z12.11 - Encounter for screening for malignant neoplasm of colon (2) Iron deficiency anemia: Status: Acute Category: Medical Code(s): D50.9 - Iron deficiency anemia, unspecified Plan A/P: 1. Screening for colon cancer is the preprocedural diagnosis. The patient will be anesthetized/sedated using MAC sedation. The patient has been seen and examined. Cardiac and lung assessment prior to the examination is stable. Proceed with planned screening colonoscopy.
--- NOTE | 2025-07-11 07:44 | EXP.ANES.CKL ---
[facility] Disclaimer: The information contained in this section may have been updated after the patient was seen, as this information can be updated by other users. Medical History Allergies Anemia BMI 36.0-36.9,adult CAD (coronary artery disease) Chest pain Cholelithiasis Coronary artery disease COVID-19 Dizziness Encounter for hepatitis C screening test for low risk patient Encounter to establish care GERD (gastroesophageal reflux disease) History of chest pain History of left heart catheterization History of syncope HLD (hyperlipidemia) Hypertension Hyponatremia Hypotension Migraine Minor head injury without loss of consciousness JATIN (obstructive sleep apnea) Mild JATIN with excellent compliance and symptomatic improvement on CPAP Pyelonephritis Renal insufficiency Restless leg syndrome Right maxillary sinusitis Screening for HIV (human immunodeficiency virus) Sinus bradycardia Syncope Thyroid Nodule Unstable angina UTI (urinary tract infection) Vasovagal syncope Surgical History H/O colonoscopy H/O: hysterectomy History of section History of coronary artery stent placement Family History Other Coronary artery disease Family history of cancer Family history of diabetes mellitus type II Family history of hypertension Social History (Updated 07/11/25 @ 06:56 by Jihan Mercer RN) Smoking Status: Former smoker second hand exposure: No alcohol intake: never substance use type: denies use current occupational status: retired Travel in the last 8 weeks?: None household members: spouse housing: house 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 current occupational exposures/hazards: No caffeine: Yes Have you lived/traveled outside US in past 30 days?: No Contact w/someone who lives/traveled outside US past 30 days?: No Exposure to someone with infectious disease in past 14 days?: No Do you have a fever (greater than 100.4 F or 38 C)?: No Have you tested positive for COVID-19?: No Exposed to someone with COVID-19 in past 14 days?: No Do you have a sore throat?: No Do you have a cough?: No Do you have any weakness?: No Are you experiencing any nausea/vomitting?: No Do you have any diarrhea?: No Are you experiencing any unusual bleeding?: No Do you have any muscle aches/pain?: No Do you have any abdominal pain?: No Are you experiencing loss of taste or smell?: No [employer] Anesthesia Checklist Patient Identification Patient Identification: Arm Band Structural Data Admitted From: Home Planned Operative Procedure/s: Colonoscopy Consent for Planned Operative Procedure(s) Verified: Yes Verified Documents: Surgical Consent and History and Physical NPO Status Verified Time NPO: 05:00 (finished prep) Additional verifications Anesthesia Reactions: No Airway Assessment Mallampati Score:: Class II C-Spine Mobility Assessed: Yes TMJ Mobility Assessed: Yes Dentition: Good Dentition Neurological Assessment Level of Consciousness: Awake, Alert and Appropriate Anesthesia Plan Anesthesia Risk discussed: Yes Anesthesia Plan: Verified ASA Class: III Anesthesia Type: MAC
--- NOTE | 2025-07-11 08:10 | P.PCN_ITS ---
[facility] Procedure Note Date: 07/11/25 Time: 08:24 Procedure Note:: Colonoscopy Procedure Report: Colonoscopy with cold snare polypectomy Endoscopist: Benjamin Llanes II, MD Referring physician: JEOVANY Whiteside Date of Procedure: July 11, 2025 Equipment: Olympus [id number] adult colonoscope Sedation: MAC sedation Indication: Mrs. Giles is a 65-year-old female who is here for screening colonoscopy. She reports no abdominal pain, weight loss, change in her bowel habits or rectal bleeding. She reports no melena. She reports no family history of colon cancer. Her last colonoscopy in 2011 was normal. She did have a negative Cologuard 1 or 2 years ago. The patient does have some anemia which is longstanding and her iron saturation in December 2024 was normal at 19%. She has received parenteral iron infusions. She was Hemoccult negative in September 2024. Procedure: Prior to the procedure, a history and physical exam was performed, and patient's medications and allergies were reviewed. The risks, benefits and alternatives of the sedation and procedure were discussed with the patient. All questions were answered and informed consent was obtained. The patient was brought to the procedure room. Patient identification and proposed procedure were verified by the physician and the nurse. The patient was placed in a left lateral decubitus position and the scope was passed under direct vision. Throughout the procedure, the patient's blood pressure, pulse, and oxygen saturations were monitored continuously. The colonoscopy was accomplished without difficulty. The patient tolerated the procedure well. Findings: On digital rectal examination there was normal rectal tone. There were no external hemorrhoids. The colonoscope was introduced through the anal canal to the rectum and advanced to the cecum. The ileocecal valve and appendiceal orifice were identified. The scope was advanced a short distance into the ileum which appeared grossly normal. The scope was then withdrawn into the colon. There was a single 5 mm transverse colon polyp that was removed via cold snare polypectomy. The remaining cecum, ascending and transverse colon and mucosa were grossly normal. There were scattered diverticuli throughout the descending and sigmoid colon (LEFT colon). The rectum itself was normal. Upon retroflexion within the rectum there were grade 1-2 internal hemorrhoids. The preparation was excellent throughout with Pengilly Preparation Score of 9. The cecal time was 12 minutes. Impression: 1. Diminutive 5 mm transverse colon polyp 2. Left-sided diverticulosis 3. Grade 1-2 internal hemorrhoids Plan: I will follow-up the polyp histology and recommend repeat surveillance colonoscopy again in 7 years if the polyp is adenomatous. The patient is Hemoccult negative (September 2024). I will inquire about NSAID use.
[2025-07-11 08:26] VITALS: BP 113/53; PULSE 60; RESP 18; TEMP 36.3; O2SAT 100
[2025-07-11 08:36] VITALS: BP 91/45; PULSE 57; RESP 18; TEMP 36.3; O2SAT 100
[2025-07-11 08:46] VITALS: BP 110/54; PULSE 51; RESP 18; TEMP 36.3; O2SAT 100
[2025-07-11 08:56] VITALS: BP 114/54; PULSE 52; RESP 18; TEMP 36.3; O2SAT 100
[2025-07-12 16:12] LABS: Deamidated Gliadin Abs, IgA 7 units (0-19); Deamidated Gliadin Abs, IgG 3 units (0-19)
[2025-07-14 09:13] LABS: Reticulin IgA Antibody Negative titer (Neg:<1:2.5)
== END 2025-07-11 09:30 | disposition home or self-care (01) ==
PROVIDERS: PCP Nurse Practitioner Family; Visit Provider Internal Medicine Gastroenterology
PROC: 0DJD8ZZ Inspection of Lower Intestinal Tract, Via Natural or Artificial Opening Endoscopic (ICD-10-PCS; CPT 45378; principal; 2025-07-11 08:00)
DX: Z12.11 Encounter for screening for malignant neoplasm of colon (principal); D12.3 Benign neoplasm of transverse colon; K57.30 Diverticulosis of large intestine without perforation or abscess without bleeding; K64.0 First degree hemorrhoids; K64.1 Second degree hemorrhoids; I25.10 Atherosclerotic heart disease of native coronary artery without angina pectoris; K21.9 Gastro-esophageal reflux disease without esophagitis; E78.5 Hyperlipidemia, unspecified; I10 Essential (primary) hypertension; Z87.891 Personal history of nicotine dependence; Z79.899 Other long term (current) drug therapy; Z79.84 Long term (current) use of oral hypoglycemic drugs; Z79.82 Long term (current) use of aspirin
CPT/HCPCS: 45385; 36415; 82962; 86231; 86256; 86258; 86364; J2003; J2704; J7120

== ENCOUNTER 2025-08-26 13:59 | Outpatient (CLI) | payer MEDICARE, SELFPAY ==
--- NOTE | 2025-08-26 14:30 | US_ITS ---
FINAL REPORT TECHNIQUE: Sonographic images of the thyroid gland were obtained in the longitudinal and transverse planes. CLINICAL HISTORY: monitor thyroid-- fu nodules COMPARISON: 08/23/2024 FINDINGS: The right lobe measures 1.7 x 2.8 x 1.0 cm. Several right thyroid nodules are stable. Upper pole TR 3 nodule is unchanged. Lower pole TR four 6 mm nodule is stable although not measured on the prior exam. The left lobe measures 1.3 x 3.0 x 0.9 cm. Hypoechoic upper pole nodule is unchanged measuring 5 mm in greatest dimension. The isthmus measures 5 mm. This is normal. No new nodules identified. IMPRESSION: Stable bilateral subcentimeter thyroid nodules. Based on size there is no current recommendation for follow-up per TI-RADS criteria. Reviewed, Interpreted and Dictated by Lenora Murrieta MD Transcribed by Nelly Luna Authenticated and [facility]
== END 2025-08-26 23:59 | disposition home or self-care (01) ==
LOC: RAD 14:00
PROVIDERS: PCP Nurse Practitioner Family; Visit Provider Nurse Practitioner
DX: E04.2 Nontoxic multinodular goiter (principal); E03.9 Hypothyroidism, unspecified
CPT/HCPCS: 76536

== ENCOUNTER 2025-09-07 10:31 | Outpatient (CLI) | payer MEDICARE, SELFPAY ==
--- OUTSIDE RECORDS SUMMARY | 2025-09-07 10:36 | XMS_ITS | Clinical Summary ---
Author Organization [facility] Address [address] [place] [address] Care Team Providers Care Masseur/Masseuse Name Role Phone Jamie Chahal MD Primary Care Provider + [phone] Allergies Active Allergy Reactions Criticality Noted Date [...] 2001 COLOGUARD 2006 COLON CANCER SCREENING 5 YEAR SIGMOIDOSCOPY 2006 COLONOSCOPY 2006 COLORECTAL CANCER SCREENING 2006 CT COLONOGRAPHY 2006 FECAL OCCULT BLOOD TEST 2006 FIT Testing (1 year) 2006 Pneumococcal Vaccine 50+ (1 of 1 - PCV) 2011 ZOSTER VACCINE (1 of 2) 2011 INFLUENZA VACCINE 06/17/2025 Insurance EMPLOYEE Care Teams Masseur/Masseuse Relationship Specialty Start Date End Date Jamie Chahal MD [address] [facility] [address] [place] [id number] PCP - General Family Medicine 07/01/21
--- OUTSIDE RECORDS SUMMARY | 2025-09-07 10:36 | XMS_ITS | Clinical Summary ---
Author Organization [facility] Address [address] [place] [address] Care Team Providers Care Selling Manager Name Role Phone Jamie Chahal MD Primary Care Provider [phone] Social History Tobacco Use Types Packs/Day Years [...] 2011 UKY-Zoster Vaccines (1 of 2) 2011 [id number] Vaccine (4 - 2024- season) 2025 11/05/2021, 12/18/2020, 11/16/2020 UKY-Influenza Vaccine (#1) 2025 [...] to complete [place] [address] ANTH Care Teams Selling Manager Relationship Specialty Start Date End Date Jamie Chahal MD [address] [facility] [address] [id number] PCP - General 03/30/21
--- OUTSIDE RECORDS SUMMARY | 2025-09-07 10:37 | XMS_ITS | Data Portability ---
Author Organization ABEL Schultz [facility] Address [address] [facility] [address] [place] [address] Assessment Encounter Date Assessment Date Assessment LastModified [...] ysis, dipsti ck, auto 018 10/12/20 18 [email or web address] [facility], [facility], [place], [address], 8 10:28:36 urinal ysis, dipsti ck, auto 018 06/01/20 18 [email or web address] Cu/ Urology [facility], [address] [facility], [place], [address], 8 13:39:07 Referral None record ed. Procedures None record ed. Surgeries None record ed. Imaging None record ed. Medication Orders None record ed. Patient TargetsNo targets recorded. Patient Instructions Encounter Date Encounter Id Patient Instructions Last Modified By Organization Details Last Modified Time 06/01/2018 [id number] Female Urinary Tract Infection (UTI): Care Instructions Not available 06/01/2018 13:39:07 KUB/renal US/ cysto/exam to eval cystocele and sxs. [email or web address] Not available 06/01/2018 13:31:01 10/12/2018 [id number] DOing well. rtc prn. [email or web address] Not available 10/12/2018 10:23:59 Reason for Referral None Reported. Results Created Date Observation Date Name Description Value Unit Range Abnormal Flag Note LastModifiedBy Organization Detail LastModifiedTime 10/12/20 18 10/12/2018 urina lysis , dipst ick, auto Unknown Analyte Yellow Not Available Cu/ [facility] [address] [facility], [place], [address], 10/12/2018 10:08:21 10/12/20 18 10/12/2018 urina lysis , dipst ick, auto Unknown Analyte Clear Not Available Cu/ Urology [facility] [address] [facility], [place], [address], 10/12/2018 10:08:21 10/12/20 18 10/12/2018 urina lysis , dipst ick, auto Unknown Analyte 1.005 Not Available / Urology [facility] [address] [facility], [place], [address], 10/12/2018 10:08:21 10/12/20 18 10/12/2018 urina lysis , dipst ick, auto Unknown Analyte 7.0 Not Available Cu/Lc [facility] [address] [facility], [place], [address], 10/12/2018 10:08:21 10/12/20 18 10/12/2018 urina lysis , dipst ick, auto Unknown Analyte Negati ve Not Available Cu/Lc Urolo [facility] [address] [facility], [place], [address], 10/12/2018 10:08:21 10/12/20 18 10/12/2018 urina lysis , dipst ick, auto Unknown Analyte Negati ve Not Available Cu/Lc Urol[facility] [address] [facility], [place], [address], 10/12/2018 10:08:21 10/12/20 18 10/12/2018 urina lysis , dipst ick, auto Unknown Analyte Negtiv e Not Available Cu/Lc U[facility] [address] [facility], [place], [address], 10/12/2018 10:08:21 10/12/20 18 10/12/2018 urina lysis , dipst ick, auto Unknown Analyte Normal Not Available Cu/Lc Urology [facility] [address] [place], [address], 10/12/2018 10:08:21 10/12/20 18 10/12/2018 urina lysis , dipst ick, auto Unknown Analyte Negati ve Not Available Cu/Lc [facility] [place], [address], 10/12/2018 10:08:21 10/12/20 18 10/12/2018 urina lysis , dipst ick, auto Unknown Analyte Normal Not Available Cu/[facility] [address] [place], [address], 10/12/2018 10:08:21 10/12/20 18 10/12/2018 urina lysis , dipst ick, auto Unknown Analyte Negati ve Not Available Cu/Lc U[facility] [address] [facility], [place], [address], 10/12/2018 10:08:21 10/12/20 18 10/12/2018 urina lysis , dipst ick, auto Unknown Analyte Negati ve Not Available Cu/Lc U[facility] [address] [facility], [place], [address], 10/12/2018 10:08:21 10/12/20 18 10/12/2018 urina lysis , dipst ick, auto Unknown Analyte Clean Catch Not Available Cu/Lc Urol[facility] [address] [facility], [place], [address], 10/12/2018 10:08:21 10/12/20 18 10/12/2018 urina lysis , dipst ick, auto Unknown Analyte Visual Not Available Cu/Lc [facility] [address] [facility], [place], [address], 10/12/2018 10:08:21 06/01/20 18 06/01/2018 urina lysis , dipst ick, auto Unknown Analyte Yellow Not Available Cu/Lc [facility] [address] [facility], [place], [address], 06/01/2018 13:11:50 06/01/20 18 06/01/2018 urina lysis , dipst ick, auto Unknown Analyte Clear Not Available Cu/L[facility] [address] [place], [address], 06/01/2018 13:11:50 06/01/20 18 06/01/2018 urina lysis , dipst ick, auto Unknown Analyte 1.005 Not Available Cu/Lc [facility] [address] [place], [address], 06/01/2018 13:11:50 06/01/20 18 06/01/2018 urina lysis , dipst ick, auto Unknown Analyte 7.0 Not Available Cu/Lc Urology [facility] [address] [facility], [place], [address], 06/01/2018 13:11:50 06/01/20 18 06/01/2018 urina lysis , dipst ick, auto Unknown Analyte Negati ve Not Available Cu/Lc Urolo gy [facility] [address] [facility], [place], [address], 06/01/2018 13:11:50 06/01/20 18 06/01/2018 urina lysis , dipst ick, auto Unknown Analyte Negati ve Not Available Cu/Lc Urolo gy [facility] [address] [facility], [place], [address], 06/01/2018 13:11:50 06/01/20 18 06/01/2018 urina lysis , dipst ick, auto Unknown Analyte Trace Not Available Cu/Lc Urology [facility] [address] [facility], [place], [address], 06/01/2018 13:11:50 06/01/20 18 06/01/2018 urina lysis , dipst ick, auto Unknown Analyte Normal Not Available Cu/Lc [facility] [address] [facility], [place], [address], 06/01/2018 13:11:50 06/01/20 18 06/01/2018 urina lysis , dipst ick, auto Unknown Analyte Negati ve Not Available Cu/Lc Urolo gy [facility] [address] [facility], [place], [address], 06/01/2018 13:11:50 06/01/20 18 06/01/2018 urina lysis , dipst ick, auto Unknown Analyte Normal Not Available Cu[facility]Lc [facility] [address] [facility], [place], [address], 06/01/2018 13:11:50 06/01/20 18 06/01/2018 urina lysis , dipst ick, auto Unknown Analyte Negati ve Not Available Cu/Lc U[facility] [address] [facility], [place], [address], 06/01/2018 13:11:50 06/01/20 18 06/01/2018 urina lysis , dipst ick, auto Unknown Analyte Negati ve Not Available Cu/Lc Urol[facility] [address] [facility], [place], [address], 06/01/2018 13:11:50 06/01/20 18 06/01/2018 urina lysis , dipst ick, auto Unknown Analyte Clean Catch Not Available Cu/Lc Urol[facility] [address] [facility], [place], [address], 06/01/2018 13:11:50 06/01/20 18 06/01/2018 urina lysis , dipst ick, auto Unknown Analyte Automa latricia Not Available Cu/Lc Urolo [facility] [address] [facility], [place], [address], 06/01/2018 13:11:50 06/18/20 18 06/18/2018 cytol ogy, non-g yneco logic al, unspe cifie d speci men medical cytology procedure SEE BELOW Depar tment of Patho logy Medic al Cytol ogy Repor t NAME: TRUE, GLEND A PATH. :[id number]-1 [id number] 11 Copie s to: SOURC E OF SPECI MEN: URINE , VOIDE D Volum e: 80 mL Color : Straw Fixed : N Blood y: N Clott ed: N Clear : Y CLINI NATY INFOR MATIO N: N 39.0 URINA RY FREQU ENCY Diagn osis: Urine , voide d, ThinP rep: Negat bal for malMD Umm Rosa Out: 06/22 , 11:25 Page 1 of 1 Not Available [facility] [address] [place] [address], [address], 06/22/2018 11:27:04 06/18/20 18 06/18/2018 urina lysis , dipst ick, auto Unknown Analyte Yellow Not Available [facility] Surgery Schedule [address] [place] [address], [address], 06/18/2018 12:28:19 06/18/20 18 06/18/2018 urina lysis , dipst ick, auto Unknown Analyte Clear Not Available [facility] Surgery Schedule [address] [place] [address], [address], 06/18/2018 12:28:19 06/18/20 18 06/18/2018 urina lysis , dipst ick, auto Unknown Analyte 1.015 Not Available [facility] Surgery Schedule [address] [place] [address], [address], 06/18/2018 12:28:19 06/18/20 18 06/18/2018 urina lysis , dipst ick, auto Unknown Analyte 9.0 Not Available [facility] Surgery Schedule [address] [place] [address], [address], 06/18/2018 12:28:19 06/18/20 18 06/18/2018 urina lysis , dipst ick, auto Unknown Analyte 25 Jia/ul Trace Not Available [facility] Surgery Schedule [address] [place] [address], [address], 06/18/2018 12:28:19 06/18/20 18 06/18/2018 urina lysis , dipst ick, auto Unknown Analyte Negati ve Not Available [facility] Surgery Schedule [address] [place] [address], [address], 06/18/2018 12:28:19 06/18/20 18 06/18/2018 urina lysis , dipst ick, auto Unknown Analyte Negtiv e Not Available [facility] Surgery Schedule [address] [place], [address], 06/18/2018 12:28:19 06/18/20 18 06/18/2018 urina lysis , dipst ick, auto Unknown Analyte Normal Not Available [facility] Surgery Schedule [address] [place], [address], 06/18/2018 12:28:19 06/18/20 18 06/18/2018 urina lysis , dipst ick, auto Unknown Analyte Negati ve Not Available [facility] Surgery Schedule [facility] [place], [address], 06/18/2018 12:28:19 06/18/20 18 06/18/2018 urina lysis , dipst ick, auto Unknown Analyte Normal Not Available [facility] Surgery Schedule [address] [place] [address], [address], 06/18/2018 12:28:19 06/18/20 18 06/18/2018 urina lysis , dipst ick, auto Unknown Analyte Negati ve Not Available [facility] Surgery Schedule [address] [place] [address], [address], 06/18/2018 12:28:19 06/18/20 18 06/18/2018 urina lysis , dipst ick, auto Unknown Analyte Negati ve Not Available [facility] Surgery Schedule [address] [place] [address], [address], 06/18/2018 12:28:19 06/18/20 18 06/18/2018 urina lysis , dipst ick, auto Unknown Analyte Clean Catch Not Available [facility] Surgery Schedule [address] [place] [address], [address], 06/18/2018 12:28:19 06/18/20 18 06/18/2018 urina lysis , dipst ick, auto Unknown Analyte Automa latricia Not Available [facility] Surgery Schedule [facility] [place], [address], 06/18/2018 12:28:19 06/18/20 18 06/18/2018 US, retro perit oneum , limit ed [address] [address] [place] t Name: JENIFFER lion : [birth year] [...] Signed By: Umberto Grajeda MD on 06/18/20 18 10:12 AM [email or web address] [facility] [address] [place] [address], [address], 06/18/2018 10:26:48 06/18/20 18 06/18/2018 XR, abdom en, [address] [address] [place] Name: JENIFFER lion : [birth year] [...] Signed By: Umberto Grajeda MD on 06/18/20 18 11:11 AM [email or web address] [facility] [address] [place] [address], [address], 06/19/2018 10:14:31 Result Notes Documentation Provider Name and Address Organization Details Recorded Time Xr, Abdomen, 1 View : [address] [address] Patient Name: JENIFFER MOURA Patient : 1960 [...] By: Umberto Grajeda MD TER IBARRA MD [address] [place] [address], [address], [facility] 06/19/2018 10:14:31 Procedures Surgical History Date Name Laterality Status Provider Name and Address Organization Details Recorded Time 10/12/20 18 Post Void Residual; Ultrasound completed [facility] 10/12/2018 10:28:20 06/01/20 18 Post Void Residual; Ultrasound completed [facility] 06/01/2018 13:13:10 delivery completed [facility] 06/01/2018 13:09:15 Hysterectomy completed [facility] 06/01/2018 13:09:22 Imaging Results None recorded. Procedure [...] Updated DateTime 06/01/2018 157.48 cm 31.1 kg/m2 91596.7 g 132/82 mm[Hg] Mattie Erickson [facility] 06/01/2018 13:07:38 Date Recorded Body height Body mass index (BMI) Body weight Systolic And Diastolic Provider Name and Address Organization Details Last Updated DateTime 10/12/2018 157.48 cm 31.1 kg/m2 62899.7 g 128/80 mm[Hg] [facility] 10/12/2018 10:07:58 Social History Question Answer Notes LastModified by [employer] Details LastModified Time Tobacco Smoking Status Never Smoker Mattie Erickson [facility] 06/01/2018 13:08:45 Marital Status Informatio n not [...] Diagnosis SNOMED-CT Code Diagnosis ICD10 Code Diagnosis IMO Codes Diagnosis Note [id number] MONSTER IBARRA MD UROLOGY [facility] [address] [facility] [address] 06/01/2018 12:25:23 06/02/2018 14:45:17 Increased frequency of urination 752399999 R35.0 Urinary tr act infectious disease 95911117 N39.0 Cystocele 076402178 N81. 10 [id number] MONSTER IBARRA MD SURGERY SCHEDULE [address] [place] [address] 06/18/2018 10:16:07 06/18/2018 10:23:15 [id number] MONSTER IBARRA MD UROLOGY [facility] [address] [place] [address] 10/12/2018 09:30:48 10/13/2018 13:25:30 Cystocele 809713112 N81.10 Health Concerns Section Related Observation LastModified by Organization Detai ls LastModified Time None Recorded Concern Status LastModified by Organization Details LastModified Time None Recorded Advance Directives Directive None Recorded Payers Insurance Date Sequence Insurance Name Policy Number Policy Vernon Covered Member ID Vernon Member ID Guarantor Name 10/11/2020 1 UMR [id number] Jeniffer Moura [id number] Jeniffer Moura 03/27/2021 PAYMENT PLAN Jeniffer Moura [...] complaints or concerns today. MONSTER IBARRA MD [address] [place] [address] [place], [address], [facility] 06/01/2018 13:39:11 10/12/2018 text/html 58 yo female here today for follow up with possible bladder prolapse. She is s/p normal cysto on 06/18/2018. She has no complaints or concerns today. She denies any dysuria or gross hematuria. MD Philomena [address]ASMINE[address] [place], [address], [facility] 10/12/2018 10:30:05 OBGyn Episode No OBEpisode recorded.
[2025-09-07 11:51] LABS: Free T4 (Free Thyroxine) 0.89 ng/dl (0.78-2.19)
[2025-09-07 11:59] LABS: Thyroid Stimulating Hormone 4.07 uIU/mL (0.465-4.68)
== END 2025-09-07 23:59 | disposition home or self-care (01) ==
LOC: LAB 10:32
PROVIDERS: PCP Nurse Practitioner Family; Visit Provider Nurse Practitioner
DX: E03.9 Hypothyroidism, unspecified (principal); E04.1 Nontoxic single thyroid nodule
CPT/HCPCS: 36415; 84439; 84443

== ENCOUNTER 2025-09-14 13:58 | Outpatient (CLI) | payer MEDICARE, SELFPAY ==
--- OUTSIDE RECORDS SUMMARY | 2024-04-15 06:45 | XMS_ITS ---
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 :1960 A ge:64 Y S ex:Female Date:04/15/2024 Address:[id number] Subjective: * Chief Complaints: * 1 . FU FROM [facility] AD[facility]. * Medical History: Objective: * Vitals: Assessment: Plan: * Treatment: * Images: Billing Information: * Visit Code: * Procedure Codes: * Electronic signature of Brooke Chahal MD on 09/15/2025 at 01:59 PM EDT Sign off status: Pending * Provider: Marnie Chahal M.D. Date: 0 04/15/2024 Generated for Printi ng/Faxing/eTransmitting on: 1 01:59 PM EDT
--- OUTSIDE RECORDS SUMMARY | 2024-07-12 07:15 | XMS_ITS ---
Author Organization [facility] Address [address] [place] [id number] Care Team Providers Care Fisher [employer]op [employer] Name Role Phone Jamie Chahal Primary Care Provider Allergies Allergen (clinical drug ingredient) Drug/Non Drug Allergy documented on EMR Reaction Allergy Type Onset Date Status dexamethasone Dexamethasone Unknown Drug Allergy Active triamcinolone Triamcinolone Unknown Drug Allergy Active Results [...] 56 Performing Lab: Notes/Report: Test performed by [facility] , [address], [place] [address] Johnny Smith MD, Senior Premium Auditor CLIA: [id number] Sodium 138 135-145 mmol/L Potassium 4.8 3.5-5.3 [...] Normal Performing Lab: Notes/Report: Test performed by [facility] [address] [place] [address] , [place] [address] Johnny Smith MD, Senior Premium Auditor CLIA: [id number] Thyroxine Free (free T4) 1.48 0.86-1.76 ng/dL P-Lipid Panel Reviewed date:07/13/2024 09:54:17 AM Interpretation: Normal Performing Lab: Notes/Report: Test performed by [facility] [address] [place] [address] , [address], [place] [address] Johnny Smith MD, Senior Premium Auditor CLIA: [id number] Cholesterol 135 <200 mg/dL Triglycerides 79 <150 [...] Normal Performing Lab: Notes/Report: Test performed by [facility] [address] , [address], [place] [address] Johnny Smith MD, Senior Premium Auditor CLIA: [id number] TSH 0.65 0.43-5.25 mU/L P-Microalbumin/Creatinine, R andom Urine Sample Reviewed date:07/13/2024 09:54:17 AM Interpretation:satisfactory Performing Lab: Notes/Report: Test performed by [facility] [address] , [address], [place] [address] Johnny Smith MD, Senior Premium Auditor CLIA: [id number] Albumin/Creatinine Ratio, Urine See Comment 0-30 ug/mg Unable to calculate Urine Albumin/Creatinine Ratio when urine creatinine or urine albumin fall outside established reportable range. Microalbumin, Urine, Random <0.3 Creatinine, Urine 59.4 P-Vitamin D 25-Hydroxy Reviewed date:07/13/2024 09:54:17 AM Interpretation:36.8 Performing Lab: Notes/Report: Test performed by [facility] [address] [place] [address] , [address], [place] [address] Johnny Smith MD, Senior Premium Auditor CLIA: [id number] Vitamin D 25-Hydroxy 36.8 30.0-100.0 ng/mL Interpretation [...] 90 days Active Vitamin D3 250 MCG (05231 UT) 1 cap(s) o rally once a week 09/02/2022 Active Aspirin 81 MG 1 tab(s) chewed once a day; Duration: 30 day(s) Active Gabapentin 100 MG 1 cap(s) orally once a day Active Vitamin D (Ergocalciferol) 1 .25 MG (61461 UT) 1 cap(s) orally once a week [...] Provider Diagnosis [facility] [address] [place] [address] [place] [id number] 07/12/2024 Jamie Chahal Essential hypertensi on I10 [...] * MICHAEL MOURACHARLAB:1960 ( 65 yo F)Acc No.[id number]:07/12/2024 Progress Notes Patient: JENIFFER PETERSON Provider: Marnie Chahal M.D. :1960 A ge:64 Y S ex:Female Date:07/12/2024 Address:[address] [place] [address] [id number] Subjective: * Chief Complaints: [...] * Hospitalization/Major Diagno stic Procedure: S yncope- [facility] ER 11/03/2020, Syncope, Anemia- H 01/14-01/16/2021, Migraine [...] , Taking Vitamin D (Ergocalciferol) 1.25 MG (60231 UT) Capsule 1 cap(s) orally once a week , Taking Aspirin 81 MG Tablet Chewable 1 tab(s) chewed once a day , Taking Vitamin D3 250 MCG (70039 UT) Capsule 1 cap(s) orally once a [...] Creatinine 56 L >59 - mL/min/1.73m2 * AnjaliMary Kay 07/13/2024 9:54: 10 AM >See phone encounter [...] Creatinine 56 L >59 - mL/min/1.73m2 * Mayr Kay Alba 07/13/2024 9:54: 10 AM >See [...] G 2211 Complex e/[place], [address] GLUCOSE TEST, 13501 GLYCATED HEMOGLOBIN TEST, Modifiers: QW , 3044F HG A1C LEVEL LT 7.0%, 3074F SYST BP LT 130 MM HG, 3078F DIAST BP < 80 MM HG * Follow Up: 6 Months * Images: Billing Information: * Visit Code: 36103 Office Visit, Est Pt., Level 4. * Procedure Codes: G2211 Complex e/[place]. [address] GLUCOSE TEST. 88371 GLYCATED HEMOGLOBIN TEST. Modifiers: QW 3044F HG A1C LEVEL LT 7.0%. 3074F SYST BP LT 130 MM HG. 3078F DIAST BP < 80 MM HG. * Electronic signature of Brooke Chahal MD on 09/15/2025 at 01:59 PM EDT Sign off status: Pending * Provider: Marnie Chahal M.D. Date: 0 07/12/2024 Generated for Luisa pizarro/Nolan/Marcela on: 1 01:59 PM EDT History and Physical Notes * HPI (History [...]
--- OUTSIDE RECORDS SUMMARY | 2024-09-17 07:15 | XMS_ITS ---
Author Organization [facility] Address [address] [place] [id number] Care Team Providers Care Draw Bench Operator Helper Name Role Phone [place] HillJamie Primary Care Provider Results Component Value Reference [...] 30 day(s) Active Vitamin D3 250 MCG (53876 UT) 1 cap(s) o rally once a [...] Active Vitamin D (Ergocalciferol) 1 .25 MG (55685 UT) 1 cap(s) orally once a week Active Immunizations Vaccine Route Administration Date Status Comme nts Fluzone Quad (6months&older) IM Intramuscular 09/17/2024 Administered Problems Problem Type SNOMED Code ICD Code Onset Dates Problem Status W/U Status Risk Notes Problem Anemia (730071019) Anemia, unspecified type (D64.9) Active confirmed Encounters Encounter Location Date Provider Diagnosis [facility] [address] [facility] [address] [place] [phone] 09/17/2024 Jamie Chahal Encounter for immunization Z23 and Anemia, unspecified type D64.9 Assessments Encounter Date Diagnosis (ICD Code) Assessment Notes Treatment Notes Treatment Clinical Notes Section Notes 09/17/2024 Encounter for immunization (ICD-10 - Z23) 09/17/2024 Anemia, unspecified type (ICD-10 - D64.9) Plan Of Treatment Next Appt Details Follow Up: 2 Weeks, Reason: Progress Notes * MARTELLJONGUILHERMEB:1960 ( 65 yo F)Acc No.[id number]:09/17/2024 Patient: JENIFFER PETERSON Provider: Marnie Chahal M.D. :1960 A ge:64 Y S ex:Female Date:09/17/2024 Address:[address] [place] [address] [id number] Subjective: * Chief Complaints: [...] , Taking Vitamin D (Ergocalciferol) 1.25 MG (58051 UT) Capsule 1 cap(s) orally once a week , Taking Aspirin 81 MG Tablet Chewable 1 tab(s) chewed once a day , Taking Vitamin D3 250 MCG (61317 UT) Capsule 1 cap(s) orally once a [...] Date: 11/17/2023 Generated for Luisa pizarro/Nolan/Marcela on: 01:59 PM EDT
--- OUTSIDE RECORDS SUMMARY | 2024-10-01 07:15 | XMS_ITS ---
Author Organization [facility] Address [address] [place] [id number] Care Team Providers Care Caretaker Grounds Name Role Phone Jamie Chahal Primary Care [...] Interpretation:Normal Performing Lab: Notes/Report: Test performed by [employer] [address] [place] [address] , [address], [place] [address] Johnny Smith MD, Brand Advisor CLIA: [id number] Vitamin B12 1850 232-6154 pg/mL P-Basic Metabolic Panel (BMP ) Reviewed date:10/04/2024 11:01:01 AM Interpretation:Creat 1.10, eGFR 56 Performing Lab: Notes/Report: Test performed by [employer] [address] [facility], [place] [address] Johnny Smith MD, Brand Advisor CLIA: [id number] Sodium 139 135-145 mmol/L Potassium 4.7 3.5-5.3 mmol/L Chloride 103 97-108 mmol/L CO2 24 22-32 mmol/L Glucose 89 65-99 mg/dL BUN 20 8-23 mg/dL Creatinine 1.10 0.50-1.00 mg/dL Calcium 9.5 8.6-10.4 mg/dL eGFR by Creatinine 56 >59 mL/min/1.73m2 P-Iron with Transferrin Satu ration Reviewed date:10/04/2024 11:01:01 AM Interpretation:Transferrin 375, Trans Sat 12% Performing Lab: Notes/Report: Test performed by [employer] [address] , [place] [address] Johnny Smith MD, Brand Advisor CLIA: [id number] Iron 65 37-145 ug/dL Transferrin 375 200-360 mg/dL Transferrin Saturation Percentage 12 15-50 % P-Phosphorus Reviewed date:10/04/2024 11:01:01 AM Interpretation:Normal Performing Lab: Notes/Report: Test performed by [employer] [address] [place] [address], [place] [address] Johnny Smith MD, Brand Advisor CLIA: [id number] Phosphorus 4.1 2.5-4.5 mg/dL P-Parathyroid Hormone (PTH) Intact Reviewed date:10/04/2024 11:01:01 AM Interpretation:Normal Performing Lab: Notes/Report: Test performed by [employer] [address] , [place] [address] Johnny Smith MD, Brand Advisor CLIA: [id number] Parathyroid Hormone (PTH) Intact 40.9 15.0-65. 0 [...] Active Vitamin D (Ergocalciferol) 1 .25 MG (04076 UT) 1 cap(s) orally once a week Active Spironolactone 25 MG 1 tab(s) orally onc e a day; Duration: 30 day(s) Active Vitamin D3 250 MCG (23783 UT) 1 cap(s) o rally once a week 09/02/2022 Active Vital Signs Blood pressure systolic 130 mm Hg 10/01/20 24 Blood pressure diastolic 72 mm Hg 024 Heart Rate 61 /min 10/01/2024 Height 62 in 10/01/2024 Weight 188 lbs 10/01/2024 BMI 34.38 kg/m2 10/01/2024 Encounters Encounter Location Date Provider Diagnosis [facility] [address] [place] [id number] 10/01/2024 Jamie Chahal Renal insufficiency N28.9 ; [...] Omeprazole 40 MG Take [address] [facility] once daily for 90 days Next Appt Details Follow Up: via phone to repo rt test results, Reason: Progress Notes * TRUE, JONNDADOB:1960 ( 65 yo F)Acc No.[id number]:10/01/2024 Progress Notes Patient: JENIFFER PETERSON Provider: Marnie Chahal M.D. :1960 A ge:64 Y S ex:Female Date:10/01/2024 Address:[address] [place], [place] [id number] Subjective: * Chief Complaints: * 1 . [...] * Hospitalization/Major Diagno stic Procedure: S yncope- [facility] ER 11/03/2020, Syncope, Anemia- H 01/14-01/16/2021, [...] , Taking Vitamin D (Ergocalciferol) 1.25 MG (06237 UT) Capsule 1 cap(s) orally once a week , Taking Aspirin 81 MG Tablet Chewable 1 tab(s) chewed once a day , Taking Vitamin D3 250 MCG (36947 UT) Capsule 1 cap(s) orally once a [...] >59 - mL/min/1.73m2 * Marina Michael 10/04/2024 11: 00:49 AM >See phone encounter ?LAB: P-Phosphorus (Collection [...] AM)?Normal* Value Reference Range V itamin B12 6231 761-0309 - pg/mL * AlecMarina 10/04/2024 11: 00:49 [...] G 2211 Complex e/[place], [address] CBC WITH AUTO DIFF * Follow Up: v ia phone to report test results * Images: Billing Information: * Visit Code: 75737 Office Visit, Est Pt., Level 4. * Procedure Codes: G2211 Complex e/[place]. [address] CBC WITH AUTO DIFF. * Electronic signature of Brooke Chahal MD on 09/15/2025 at 01:59 PM EDT Sign off status: Pending * Provider: Marnie Chahal M.D. Date: 12/01/2023 Generated for Luisa pizarro/Nolan/Chicosmitting on: 01:59 PM EDT History and Physical Notes [...]
--- OUTSIDE RECORDS SUMMARY | 2025-01-10 07:00 | XMS_ITS ---
Author Organization [facility] Address [address] [facility] [address] [place] [id number] Care Team Providers Care Rural Mail Carrier Name Role Phone Jamie Chahal Primary Care Provider REASON FOR VISIT 6 month f/u Encounters Encounter Location Date Provider Diagnosis [facility] [address] [facility] [address] [facility] [address] [place] [id number] 01/10/2025 Jamie Chahal Plan Of Treatment No Information Progress Notes * YASH MOURAB:1960 ( 65 yo F)Acc No.[id number]:01/10/2025 Progress Notes Patient: JENIFFER PETERSON Provider: Marnie Chahal M.D. :1960 A ge:64 Y S ex:Female Date:01/10/2025 Address:[id number] Subjective: * Chief Complaints: * 1 . 6 month f/u. * Medical History: Objective: * Vitals: Assessment: Plan: * Treatment: * Images: Billing Information: * Visit Code: * Procedure Codes: * Electronic signature of Brooke Chahal MD on 09/15/2025 at 02:00 PM EDT Sign off status: Pending * Provider: Marnie Chahal M.D. Date: 0 01/10/2025 Generated for Printi ng/Faxing/eTransmitting on: 1 02:00 PM EDT
[2025-09-14 19:35] LABS: Anion Gap 13.1 mEq/L (5-15); Blood Urea Nitrogen 20 mg/dl (7-17); Calcium 9.3 mg/dl (8.4-10.2); Carbon Dioxide 28 mmol/L (22.0-30.0); Chloride 97 mmol/L (98-107); Creatinine,Serum 1.10 mg/dl (0.52-1.04); Estimated Glomerular Filt Rate 50 ml/min (>60); GFR (African American) 61 ML/MIN (>60); Glucose 130 mg/dl (74-100); Iron 97 ug/dL (37-170); Potassium 4.1 mmoL/L (3.5-5.1); Sodium 134 mmol/L (136-145)
[2025-09-14 19:53] LABS: Total Iron Binding Capacity 304 ug/dL (265-497)
[2025-09-14 20:12] LABS: Ferritin 199 ng/ml (11.1-264)
[2025-09-14 20:38] LABS: Hemoglobin A1C 6.3 % (4.0-6.0)
--- OUTSIDE RECORDS SUMMARY | 2025-09-15 13:59 | XMS_ITS | Clinical Summary ---
Author Organization Healthcare Address [address] [place] [address] Care Team Providers Care Nuclear Power Plant Engineer Name Role Phone Jamie Chahal MD Primary Care Provider [phone] Social History Tobacco Use Types Packs/Day Years [...] 2011 UKY-Zoster Vaccines (1 of 2) 2011 [id number] Vaccine (4 - 2024- season) 2025 11/05/2021, [...] to [place] [id number] ANTH Care Teams Nuclear Power Plant Engineer Relationship Specialty Start Date End Date Jamie Chahal MD [address] [facility] [address] [place] [address] PCP - General 03/30/21
--- OUTSIDE RECORDS SUMMARY | 2025-09-15 14:00 | XMS_ITS | Clinical Summary ---
Author Organization [facility] Address [address] [place] [address] Care Team Providers Care Bowling Alley Mechanic Name Role Phone Jamie Chahal MD Primary Care Provider + [phone] Allergies Active Allergy Reactions Criticality Noted Date [...] INFLUENZA VACCINE 06/17/2025 Insurance EMPLOYEE Care Teams Bowling Alley Mechanic Relationship Specialty Start Date End Date Jamie Chahal MD [address] [facility] [address] [place] [address] PCP - General Family Medicine 07/01/21
--- OUTSIDE RECORDS SUMMARY | 2025-09-15 14:00 | XMS_ITS | Patient Health Record ---
Author Organization [facility] Address [address] [place] [id number] Care Team Providers Care Enamel Shader Name Role Phone Tirso Jamie Primary Care Provider [phone] Allergies Allergen (clinical drug ingredient) Drug/Non [...] Interpretation:Normal Performing Lab: Notes/Report: Test performed by [facility] , [address], [place] [address] Johnny Smith MD, [place] CLIA: [id number] Vitamin B12 2354 296-4996 pg/mL P-Basic Metabolic Panel (BMP ) Reviewed date:10/04/2024 11:01:01 AM Interpretation:Creat 1.10, eGFR 56 Performing Lab: Notes/Report: Test performed by [facility] [address] [place] [address] , [address], [place] [address] Johnny Smith MD, [place] CLIA: [id number] Sodium 139 135-145 mmol/L Potassium 4.7 3.5-5.3 mmol/L Chloride 103 97-108 mmol/L CO2 24 22-32 mmol/L Glucose 89 65-99 mg/dL BUN 20 8-23 mg/dL Creatinine 1.10 0.50-1.00 mg/dL Calcium 9.5 8.6-10.4 mg/dL eGFR by Creatinine 56 >59 mL/min/1.73m2 P-Iron with Transferrin Satu ration Reviewed date:10/04/2024 11:01:01 AM Interpretation:Transferrin 375, Trans Sat 12% Performing Lab: Notes/Report: Test performed by [facility] [address] , [address], [place] [address] Johnny Smith MD, [place] CLIA: [id number] Iron 65 37-145 ug/dL Transferrin 375 200-360 mg/dL Transferrin Saturation Percentage 12 15-50 % P-Phosphorus Reviewed date:10/04/2024 11:01:01 AM Interpretation:Normal Performing Lab: Notes/Report: Test performed by [facility] [address] [place] [address] , [address], [place] [id number] Johnny Smith MD, [place] CLIA: [id number] Phosphorus 4.1 2.5-4.5 mg/dL P-Parathyroid Hormone (PTH) Intact Reviewed date:10/04/2024 11:01:01 AM Interpretation:Normal Performing Lab: Notes/Report: Test performed by [facility] [address] , [address], [place] [address] Johnny Smith MD, [place] CLIA: [id number] Parathyroid Hormone (PTH) Intact 40.9 15.0-65. 0 pg/mL Reason For Referral No Information Medications [...] 30 days Active Vitamin D3 250 MCG (74244 UT) 1 cap(s) o rally once a week 09/02/2022 Active Folic Acid 1 MG 1 tab(s) orally once a day; Duration: 30 days Active Aspirin 81 MG 1 tab(s) chewed once a day; Duration: 30 day(s) Active Vitamin D (Ergocalciferol) 1 .25 MG (10610 UT) 1 cap(s) orally once a week [...] W/U Status Risk Notes Problem Essential hypertension (52570156) Essential (primary) hypertension (I10) Active confirmed Problem Type 2 diabetes mellitus (67101841) Type 2 diabetes mellitus (E11.9) Active confirmed Problem Vitamin D deficiency (27441095) Vitamin D deficiency (E55.9) Active confirmed Problem Essential hypertension (26170765) Essential hypertension (I10) Active confirmed Problem Unstable angina (8595537) Unstable angina (I20.0) Active confirmed Problem Carotid artery occlusion (958876960) Occlusion and stenosis of unspecified carotid artery (I65.29) Active confirmed Problem Chronic maxillary sinusitis (00464074) Chronic maxillary sinusitis (J32.0) Active confirmed Problem Sciatica (94702112) Lumbago with sciatica, left side (M54.42) Active confirmed Problem Chronic pain (24422629) Other chronic pain (G89.29) Active confirmed Problem Restless legs (46605416) Restless leg (G25.81) Active confirmed Problem Acquired hypothyroidism (901725491) Acquired hypothyroidism (E03.9) Active confirmed Problem Atherosclerotic hear t disease of [place] coronary artery without angina pectoris (623675791278852) Coronary artery disease involving [place] coronary artery of [place] heart without angina pectoris (I25.10) Active confirmed Problem Gastroesophageal reflux disease (829122571) Gastroesophageal reflux disease, esophagitis presence not specified (K21.9) Active confirmed Problem Migraine (81430061) Migraine wit hout status migrainosus, not intractable, unspecified migraine type (G43.909) Active confirmed Problem Anemia (021716270) Anemia, unspe cified type (D64.9) Active confirmed Problem Hyperlipidaemia (74316385) Hyperlipidemia, unspecified hyperlipidemia type (E78.5) Active confirmed Problem Hypothyroidism (37570063) Hypothyroidism, unspecified type (E03.9) Active confirmed Problem Stented coronary artery (435631603) Stented coronary artery (Z95.5) Active confirmed Problem Impaired fasting glycaemia (851495122) IFG (impaired fasting glucose) (R73.01) Active confirmed Problem Atherosclerotic hear t disease of [place] coronary artery without angina pectoris (716207292983561) Atherosclerosis of [place] coronary artery without angina pectoris, unspecified whether [place] or transplanted heart (I25.10) Active confirmed Problem Pure hypercholesterolemia (316241296) Pure hypercholesterolemia (E78.00) Active confirmed Problem Angina co-occurrent and due to coronary arteriosclerosis (86672431358115580) Coronary artery disease of [place] artery of [place] heart with stable angina pectoris (I25.118) Active confirmed Problem Carotid artery occlusion (459356871) Stenosis of carotid artery, unspecified laterality (I65.29) Active confirmed Problem Obesity (979485235) Non morbid o besity (E66.9) Active confirmed Problem History of placement of stent for coronary artery disease (situation) (353178129) S/P coronary artery stent placement (Z95.5) Active confirmed Problem Seasonal allergic rhinitis (493249740) Seasonal allergic rhinitis, unspecified trigger (J30.2) Active confirmed Problem Angina co-occurrent and due to coronary arteriosclerosis (09193683941070593) Coronary artery disease involving [place] coronary artery of [place] heart with other form of angina pectoris (I25.118) Active confirmed Vital Signs Heart Rate 61 /min 10/01/2024 Blood pressure diastolic 72 mm Hg 10/01/2024 Height 62 in 10/01/2024 Blood pressure systolic 130 mm Hg 10/01/2024 Weight 188 lbs 10/01/2024 BMI 34.38 kg/m2 10/01/2024 Encounters Encounter Location Date Provider Diagnosis [facility] [address] [facility] [address] [place], [place] [id number] 09/17/2024 Jamie Wingo Encounter for immuni zation Z23 and Anemia, unspecified type D64.9 [facility] [address] [place], [place] [id number] 10/01/2024 Jamie Wingo Renal insufficiency N28.9 ; Anemia, unspecified type D64.9 ; Gastroesophageal reflux disease, esophagitis presence not specified K21.9 and Essential hypertension I10 [facility] [address] [facility] [address] [place], [place] [id number] 10/04/2024 Jamie Wingo [facility] [address] [facility] [address] [place], [place] [phone]25 Jamie Wingo Assessments Encounter Date Diagnosis (ICD Code) Assessment Notes Treatment Notes Treatment Clinical Notes Section Notes 09/17/2024 Encounter for immunization (ICD-10 - Z23) 09/17/2024 Anemia, unspecified type (ICD-10 - D64.9) 10/01/2024 Renal insufficiency (ICD-10 - N28.9) 10/01/2024 Anemia, unspecified type (ICD-10 - D64.9) 10/01/2024 Gastroesophageal reflux disease, esophagitis presence not specified (ICD-10 - K21.9) 10/01/2024 Essential hypertension (ICD-10 - I10) Plan Of Treatment No Information Insurance Providers Payer Name Payer Address Payer Phone Subscriber Number Group Number Insured Name Patient Relationship to Insured Coverage Start Date Coverage End Date [employer] (MEDICAR E) [address] [address] [place] [phone] [id number] MARTELLMICHAELA Self - patient is the insured Medical [...] x2 01/2021 Hospitalization History Reason Date(Month/Year) Syncope- [facility] 11/03/2020 Syncope, Anemia- [facility] 01/14-01/16/2021 Migraine 07/01/2021
--- OUTSIDE RECORDS SUMMARY | 2025-09-15 14:00 | XMS_ITS | Data Portability ---
Author Organization [facility] Address [address] [facility] [address] [place] [address] Assessment Encounter Date Assessment Date Assessment LastModified [...] ysis, dipsti ck, auto 018 10/12/20 18 [email or web address] Cu/[facility] Angelica Lozano, [facility] Angelica Lozano, [place], [address], 8 10:28:36 urinal ysis, dipsti ck, auto 018 06/01/20 18 [email or web address] Cu/ Urology [facility], [address] [facility], [place], [address], 8 13:39:07 Referral None record ed. Procedures None record ed. Surgeries None record ed. Imaging None record ed. Medication Orders None record ed. Patient TargetsNo targets recorded. Patient Instructions Encounter Date Encounter Id Patient Instructions Last Modified By Organization Details Last Modified Time 06/01/2018 [id number] Female Urinary Tract Infection (UTI): Care Instructions [email or web address] Not available 06/01/2018 13:39:07 KUB/renal US/ cysto/exam to eval cystocele and sxs. Not available 06/01/2018 13:31:01 10/12/2018 [id number] DOing well. rtc prn. Not available 10/12/2018 10:23:59 Reason for Referral None Reported. Results Created Date Observation Date Name Description Value Unit Range Abnormal Flag Note LastModifiedBy Organization Detail LastModifiedTime 10/12/20 18 10/12/2018 urina lysis , dipst ick, auto Unknown Analyte Yellow Not Available Cu/ [facility] [address] [facility], [place], [address], 10/12/2018 10:08:21 10/12/20 18 10/12/2018 urina lysis , dipst ick, auto Unknown Analyte Clear Not Available Cu/ Urology [facility] [address] [facility], [place], [address], 10/12/2018 10:08:21 10/12/20 18 10/12/2018 urina lysis , dipst ick, auto Unknown Analyte 1.005 Not Available / Urology [facility] [address] [facility], [place], [address], 10/12/2018 10:08:21 10/12/20 18 10/12/2018 urina lysis , dipst ick, auto Unknown Analyte 7.0 Not Available Cu/Lc U[facility] [address] [facility], [place], [address], 10/12/2018 10:08:21 10/12/20 18 10/12/2018 urina lysis , dipst ick, auto Unknown Analyte Negati ve Not Available Cu/Lc Urolo [facility] [address] [facility], [place], [address], 10/12/2018 10:08:21 10/12/20 18 10/12/2018 urina lysis , dipst ick, auto Unknown Analyte Negati ve Not Available Cu/Lc [facility]rol[facility] [address] [facility], [place], [address], 10/12/2018 10:08:21 10/12/20 18 10/12/2018 urina lysis , dipst ick, auto Unknown Analyte Negtiv e Not Available Cu/Lc U[facility] [address] [facility], [place], [address], 10/12/2018 10:08:21 10/12/20 18 10/12/2018 urina lysis , dipst ick, auto Unknown Analyte Normal Not Available Cu/Lc Urology [facility] [address] [place], [address], 10/12/2018 10:08:21 10/12/20 18 10/12/2018 urina lysis , dipst ick, auto Unknown Analyte Negati ve Not Available Cu/Lc [facility] [place], [address], 10/12/2018 10:08:21 10/12/20 18 10/12/2018 urina lysis , dipst ick, auto Unknown Analyte Normal Not Available Cu/Lc [facility] [address] [place], [address], 10/12/2018 10:08:21 10/12/20 18 10/12/2018 urina lysis , dipst ick, auto Unknown Analyte Negati ve Not Available Cu/Lc [facility]rol[facility] [address] [facility], [place], [address], 10/12/2018 10:08:21 10/12/20 18 10/12/2018 urina lysis , dipst ick, auto Unknown Analyte Negati ve Not Available Cu/Lc Urol[facility] [address] [facility], [place], [address], 10/12/2018 10:08:21 10/12/20 18 10/12/2018 urina lysis , dipst ick, auto Unknown Analyte Clean Catch Not Available Cu/Lc Urol[facility] [address] [facility], [place], [address], 10/12/2018 10:08:21 10/12/20 18 10/12/2018 urina lysis , dipst ick, auto Unknown Analyte Visual Not Available Cu/Lc [facility] [address] [facility], [place], [address], 10/12/2018 10:08:21 06/01/20 18 06/01/2018 urina lysis , dipst ick, auto Unknown Analyte Yellow Not Available Cu/Lc [facility] [address] [facility], [place], [address], 06/01/2018 13:11:50 06/01/20 18 06/01/2018 urina lysis , dipst ick, auto Unknown Analyte Clear Not Available Cu/Lc [facility] [address] [place], [address], 06/01/2018 13:11:50 06/01/20 18 06/01/2018 urina lysis , dipst ick, auto Unknown Analyte 1.005 Not Available Cu/Lc U[facility] [address] [place], [address], 06/01/2018 13:11:50 06/01/20 18 06/01/2018 urina lysis , dipst ick, auto Unknown Analyte 7.0 Not Available Cu/Lc Urology [facility] [address] [facility], [place], [address], 06/01/2018 13:11:50 06/01/20 18 06/01/2018 urina lysis , dipst ick, auto Unknown Analyte Negati ve Not Available Cu/Lc Urolo gy [facility] [address] [facility], [place], [address], 06/01/2018 13:11:50 06/01/20 18 06/01/2018 urina lysis , dipst ick, auto Unknown Analyte Negati ve Not Available Cu/Lc Urolo gy [facility] [address] [facility], [place], [address], 06/01/2018 13:11:50 06/01/20 18 06/01/2018 urina lysis , dipst ick, auto Unknown Analyte Trace Not Available Cu/Lc Urology [facility] [address] [facility], [place], [address], 06/01/2018 13:11:50 06/01/20 18 06/01/2018 urina lysis , dipst ick, auto Unknown Analyte Normal Not Available Cu/Lc Urology [facility] [address] [facility], [place], [address], 06/01/2018 13:11:50 06/01/20 18 06/01/2018 urina lysis , dipst ick, auto Unknown Analyte Negati ve Not Available Cu/Lc Urolo gy [facility] [address] [facility], [place], [address], 06/01/2018 13:11:50 06/01/20 18 06/01/2018 urina lysis , dipst ick, auto Unknown Analyte Normal Not Available Cu/Lc U[facility] [address] [facility], [place], [address], 06/01/2018 13:11:50 06/01/20 18 06/01/2018 urina lysis , dipst ick, auto Unknown Analyte Negati ve Not Available Cu/Lc Urol[facility] [address] [facility], [place], [address], 06/01/2018 13:11:50 06/01/20 18 06/01/2018 urina lysis , dipst ick, auto Unknown Analyte Negati ve Not Available Cu/Lc Urol[facility] [address] [facility], [place], [address], 06/01/2018 13:11:50 06/01/20 18 06/01/2018 urina lysis , dipst ick, auto Unknown Analyte Clean Catch Not Available Cu/Lc Urolo [facility] [address] [facility], [place], [address], 06/01/2018 13:11:50 06/01/20 18 06/01/2018 urina lysis , dipst ick, auto Unknown Analyte Automa latricia Not Available Cu/Lc Urolo [facility] [address] [facility], [place], [address], 06/01/2018 13:11:50 06/18/20 18 06/18/2018 cytol ogy, [...] 11:25 Page 1 of 1 Not Available [facility] [address] [place] [address], [address], 06/22/2018 11:27:04 06/18/20 18 06/18/2018 urina lysis , dipst ick, auto Unknown Analyte Yellow Not Available [facility] Surgery Schedule [address] [place] [address], [address], 06/18/2018 12:28:19 06/18/20 18 06/18/2018 urina lysis , dipst ick, auto Unknown Analyte Clear Not Available [facility] Surgery Schedule [address] [place] [address], [address], 06/18/2018 12:28:19 06/18/20 18 06/18/2018 urina lysis , dipst ick, auto Unknown Analyte 1.015 Not Available [facility] Surgery Schedule [address] [place] [address], [address], 06/18/2018 12:28:19 06/18/20 18 06/18/2018 urina lysis , dipst ick, auto Unknown Analyte 9.0 Not Available [facility] Surgery Schedule [address] [place] [address], [address], 06/18/2018 12:28:19 06/18/20 18 06/18/2018 urina lysis , dipst ick, auto Unknown Analyte 25 Jia/ul Trace Not Available [facility] Surgery Schedule [address] [place] [address], [address], 06/18/2018 12:28:19 06/18/20 18 06/18/2018 urina lysis , dipst ick, auto Unknown Analyte Negati ve Not Available [facility] Surgery Schedule [address] [place] [address], [address], 06/18/2018 12:28:19 06/18/20 18 06/18/2018 urina lysis , dipst ick, auto Unknown Analyte Negtiv e Not Available [facility] Surgery Schedule [address] [place], [address], 06/18/2018 12:28:19 06/18/20 18 06/18/2018 urina lysis , dipst ick, auto Unknown Analyte Normal Not Available [facility] Surgery Schedule [address] [place], [address], 06/18/2018 12:28:19 06/18/20 18 06/18/2018 urina lysis , dipst ick, auto Unknown Analyte Negati ve Not Available [facility] Surgery Schedule [facility] [place], [address], 06/18/2018 12:28:19 06/18/20 18 06/18/2018 urina lysis , dipst ick, auto Unknown Analyte Normal Not Available [facility] Surgery Schedule [address] [place] [address], [address], 06/18/2018 12:28:19 06/18/20 18 06/18/2018 urina lysis , dipst ick, auto Unknown Analyte Negati ve Not Available [facility] Surgery Schedule [address] [place] [address], [address], 06/18/2018 12:28:19 06/18/20 18 06/18/2018 urina lysis , dipst ick, auto Unknown Analyte Negati ve Not Available [facility] Surgery Schedule [address] [place] [address], [address], 06/18/2018 12:28:19 06/18/20 18 06/18/2018 urina lysis , dipst ick, auto Unknown Analyte Clean Catch Not Available [facility] Surgery Schedule [address] [place] [address], [address], 06/18/2018 12:28:19 06/18/20 18 06/18/2018 urina lysis , dipst ick, auto Unknown Analyte Automa latricia Not Available [facility] Surgery Schedule [facility] [place], [address], 06/18/2018 12:28:19 06/18/20 18 06/18/2018 US, retro perit oneum , limit ed [address] [address] [place] t Name: JENIFFER lion : [birth year] [...] Grajeda MD on 06/18/20 18 10:12 AM [facility] Radiology [facility] [address] [place] [address], [address], 06/18/2018 10:26:48 06/18/20 18 06/18/2018 XR, abdom en, [address] [address] [place] t Name: JENIFFER lion : [birth year] [...] Grajeda MD on 06/18/20 18 11:11 AM [email or web address] [facility] Radiology [facility] [address] [place] [address], [address], 06/19/2018 10:14:31 Result Notes Documentation Provider Name and Address Organization Details Recorded Time Xr, Abdomen, 1 View : [address] [address] Patient Name: JENIFFER MOURA Patient : 1960 [...] By: Umberto Grajeda MD TER IBARRA MD [address] [place] [address], [address], [facility] 06/19/2018 10:14:31 Procedures Surgical History Date Name Laterality Status Provider Name and Address Organization Details Recorded Time 10/12/20 18 Post Void Residual; Ultrasound completed [facility] 10/12/2018 10:28:20 06/01/20 18 Post Void Residual; Ultrasound completed [facility] 06/01/2018 13:13:10 delivery completed [facility] 06/01/2018 13:09:15 Hysterectomy completed [facility] 06/01/2018 13:09:22 Imaging Results None recorded. [...] Updated DateTime 06/01/2018 157.48 cm 31.1 kg/m2 09816.7 g 132/82 mm[Hg] Mattie Erickson [facility] 06/01/2018 13:07:38 Date Recorded Body height Body mass index (BMI) Body weight Systolic And Diastolic Provider Name and Address Organization Details Last Updated DateTime 10/12/2018 157.48 cm 31.1 kg/m2 24262.7 g 128/80 mm[Hg] [facility] 10/12/2018 10:07:58 Social History Question Answer Notes LastModified by [employer]at [employer] Details LastModified Time Tobacco Smoking Status Never Smoker Mattie Erickson [facility] 06/01/2018 13:08:45 Marital Status Informatio n [...] ICD10 Code Diagnosis IMO Codes Diagnosis Note [id number] MONSTER IBARRA MD UROLOGY [facility] [address] [facility] [address] 06/01/2018 12:25:23 06/02/2018 14:45:17 Increased frequency of urination 424000457 R35.0 Urinary tr act infectious disease 89542020 N39.0 Cystocele 385331088 N81. 10 [id number] MONSTER IBARRA MD SURGERY SCHEDULE [address] [place] [address] 06/18/2018 10:16:07 06/18/2018 10:23:15 [id number] MONSTER IBARRA MD UROLOGY [facility] [address] [place] [address] 10/12/2018 09:30:48 10/13/2018 13:25:30 Cystocele [id number] N81.10 Health Concerns Section Related Observation LastModified by Organization Detai ls LastModified Time None Recorded Concern Status LastModified by Organization Details LastModified Time None Recorded Advance Directives Directive None Recorded Payers Insurance Date Sequence Insurance Name Policy Number Policy Vernon Covered Member ID Vernon Member ID Guarantor Name 10/11/2020 1 UMR [id number] Jeniffer Moura [id number] Jeniffer Moura 03/27/2021 PAYMENT PLAN Jeniffer Moura [...] complaints or concerns today. MONSTER IBARRA MD [address] [place] [address] [place], [address], [facility] 06/01/2018 13:39:11 10/12/2018 text/html 58 yo female here today for follow up with possible bladder prolapse. She is s/p normal cysto on 06/18/2018. She has no complaints or concerns today. She denies any dysuria or gross hematuria. MD Philomena [address] [place], [address], [facility] 10/12/2018 10:30:05 OBGyn Episode No OBEpisode recorded.
== END 2025-09-14 23:59 | disposition home or self-care (01) ==
LOC: LAB.DROPOF 09-15 13:49
PROVIDERS: PCP Nurse Practitioner Family; Visit Provider Nurse Practitioner Family
DX: D50.9 Iron deficiency anemia, unspecified (principal); E11.9 Type 2 diabetes mellitus without complications
CPT/HCPCS: 80048; 82728; 83036; 83540; 83550

== ENCOUNTER 2025-10-10 13:09 | Outpatient (CLI) | payer MEDICARE, SELFPAY ==
[2025-10-10 17:46] LABS: Chloride 96 mmol/L (98-107); Potassium 4.1 mmoL/L (3.5-5.1); Sodium 137 mmol/L (136-145)
[2025-10-10 17:49] LABS: Blood Urea Nitrogen 18 mg/dl (7-17); Creatinine,Serum 1.00 mg/dl (0.52-1.04); Estimated Glomerular Filt Rate 56 ml/min (>60); GFR (African American) 68 ML/MIN (>60)
[2025-10-10 17:50] LABS: Anion Gap 17.1 mEq/L (5-15); Calcium 9.2 mg/dl (8.4-10.2); Carbon Dioxide 28 mmol/L (22.0-30.0); Glucose 133 mg/dl (74-100)
--- OUTSIDE RECORDS SUMMARY | 2025-10-11 08:55 | XMS_ITS | Clinical Summary ---
Author Organization [facility] Address [address] [place] [address] Care Team Providers Care Corporate Communications Manager Name Role Phone Jamie Chahal MD Primary Care Provider + [phone] Allergies Active Allergy Reactions Criticality Noted Date [...] INFLUENZA VACCINE 06/17/2025 Insurance EMPLOYEE Care Teams Corporate Communications Manager Relationship Specialty Start Date End Date Jamie Chahal MD [address] [facility] [address] [place] [address] PCP - General Family Medicine 07/01/21
--- OUTSIDE RECORDS SUMMARY | 2025-10-11 08:55 | XMS_ITS | Clinical Summary ---
Author Organization Healthcare Address [address] [place] [address] Care Team Providers Care Hardware Engineer Name Role Phone Jamie Chahal MD Primary Care Provider [phone] Social History Tobacco Use Types Packs/Day Years [...] 2011 UKY-Zoster Vaccines (1 of 2) 2011 ESM-[id number]-10 Vaccine (4 - 2024- season) 2025 11/05/2021, [...] to [place] this [place] [id number] ANTH Care Teams Hardware Engineer Relationship Specialty Start Date End Date Jamie Chahal MD [address] [facility] [address] [address] PCP - General 03/30/21
--- OUTSIDE RECORDS SUMMARY | 2025-10-11 08:56 | XMS_ITS | Data Portability ---
Author Organization [facility] [address] Address [address] [facility] [address] [place] [address] Assessment Encounter Date Assessment Date Assessment LastModified [...] ysis, dipsti ck, auto 018 10/12/20 18 [email or web address] [facility] Angelica Lozano, [facility], [facility] Angelica Lozano, [place], [address], 8 10:28:36 urinal ysis, dipsti ck, auto 018 06/01/20 18 Cu/ Urology [facility], [address] [facility], [place], [address], 8 13:39:07 Referral None record ed. Procedures None record ed. Surgeries None record ed. Imaging None record ed. Medication Orders None record ed. Patient TargetsNo targets recorded. Patient Instructions Encounter Date Encounter Id Patient Instructions Last Modified By Organization Details Last Modified Time 06/01/2018 [id number] Female Urinary Tract Infection (UTI): Care Instructions [email or web address] Not available 06/01/2018 13:39:07 KUB/renal US/ cysto/exam to eval cystocele and sxs. Not available 06/01/2018 13:31:01 10/12/2018 [id number] DOing well. rtc prn. Not available 10/12/2018 10:23:59 Reason for Referral None Reported. Results Created Date Observation Date Name Description Value Unit Range Abnormal Flag Note LastModifiedBy Organization Detail LastModifiedTime 10/12/20 18 10/12/2018 urina lysis , dipst ick, auto Unknown Analyte Yellow Not Available Cu/ [facility] [address] [facility], [place], [address], 10/12/2018 10:08:21 10/12/20 18 10/12/2018 urina lysis , dipst ick, auto Unknown Analyte Clear Not Available Cu/ Urology [facility] [address] [facility], [place], [address], 10/12/2018 10:08:21 10/12/20 18 10/12/2018 urina lysis , dipst ick, auto Unknown Analyte 1.005 Not Available / Urology [facility] [address] [facility], [place], [address], 10/12/2018 10:08:21 10/12/20 18 10/12/2018 urina lysis , dipst ick, auto Unknown Analyte 7.0 Not Available [facility] [address] [facility], [place], [address], 10/12/2018 10:08:21 10/12/20 18 10/12/2018 urina lysis , dipst ick, auto Unknown Analyte Negati ve Not Available Cu/L[facility] Urolo [facility] [address] [facility], [place], [address], 10/12/2018 10:08:21 10/12/20 18 10/12/2018 urina lysis , dipst ick, auto Unknown Analyte Negati ve Not Available [facility] [address] [facility], [place], [address], 10/12/2018 10:08:21 10/12/20 18 10/12/2018 urina lysis , dipst ick, auto Unknown Analyte Negtiv e Not Available [facility] [address] [facility], [place], [address], 10/12/2018 10:08:21 10/12/20 18 10/12/2018 urina lysis , dipst ick, auto Unknown Analyte Normal Not Available [facility] [address] [place], [address], 10/12/2018 10:08:21 10/12/20 18 10/12/2018 urina lysis , dipst ick, auto Unknown Analyte Negati ve Not Available [facility] [address] [place], [address], 10/12/2018 10:08:21 10/12/20 18 10/12/2018 urina lysis , dipst ick, auto Unknown Analyte Normal Not Available [facility] [address] [place], [address], 10/12/2018 10:08:21 10/12/20 18 10/12/2018 urina lysis , dipst ick, auto Unknown Analyte Negati ve Not Available [facility] [address] [facility], [place], [address], 10/12/2018 10:08:21 10/12/20 18 10/12/2018 urina lysis , dipst ick, auto Unknown Analyte Negati ve Not Available [facility] [address] [facility], [place], [address], 10/12/2018 10:08:21 10/12/20 18 10/12/2018 urina lysis , dipst ick, auto Unknown Analyte Clean Catch Not Available [facility] [address] [facility], [place], [address], 10/12/2018 10:08:21 10/12/20 18 10/12/2018 urina lysis , dipst ick, auto Unknown Analyte Visual Not Available [facility] [address] [facility], [place], [address], 10/12/2018 10:08:21 06/01/20 18 06/01/2018 urina lysis , dipst ick, auto Unknown Analyte Yellow Not Available [facility] [address] [facility], [place], [address], 06/01/2018 13:11:50 06/01/20 18 06/01/2018 urina lysis , dipst ick, auto Unknown Analyte Clear Not Available [facility] [address] [place], [address], 06/01/2018 13:11:50 06/01/20 18 06/01/2018 urina lysis , dipst ick, auto Unknown Analyte 1.005 Not Available [facility] [address] [place], [address], 06/01/2018 13:11:50 06/01/20 18 06/01/2018 urina lysis , dipst ick, auto Unknown Analyte 7.0 Not Available [facility] [address] [facility], [place], [address], 06/01/2018 13:11:50 06/01/20 18 06/01/2018 urina lysis , dipst ick, auto Unknown Analyte Negati ve Not Available [facility]rol[facility] [address] [facility], [place], [address], 06/01/2018 13:11:50 06/01/20 18 06/01/2018 urina lysis , dipst ick, auto Unknown Analyte Negati ve Not Available [facility]rol[facility] [address] [facility], [place], [address], 06/01/2018 13:11:50 06/01/20 18 06/01/2018 urina lysis , dipst ick, auto Unknown Analyte Trace Not Available [facility] [address] [facility], [place], [address], 06/01/2018 13:11:50 06/01/20 18 06/01/2018 urina lysis , dipst ick, auto Unknown Analyte Normal Not Available [facility] [address] [facility], [place], [address], 06/01/2018 13:11:50 06/01/20 18 06/01/2018 urina lysis , dipst ick, auto Unknown Analyte Negati ve Not Available [facility]rol[facility] [address] [facility], [place], [address], 06/01/2018 13:11:50 06/01/20 18 06/01/2018 urina lysis , dipst ick, auto Unknown Analyte Normal Not Available [facility] [address] [facility], [place], [address], 06/01/2018 13:11:50 06/01/20 18 06/01/2018 urina lysis , dipst ick, auto Unknown Analyte Negati ve Not Available Cu/[facility]c Urol[facility] [address] [facility], [place], [address], 06/01/2018 13:11:50 06/01/20 18 06/01/2018 urina lysis , dipst ick, auto Unknown Analyte Negati ve Not Available [facility]c [facility]rol[facility] [address] [facility], [place], [address], 06/01/2018 13:11:50 06/01/20 18 06/01/2018 urina lysis , dipst ick, auto Unknown Analyte Clean Catch Not Available Cu/[facility]c Urol[facility] [address] [facility], [place], [address], 06/01/2018 13:11:50 06/01/20 18 06/01/2018 urina lysis , dipst ick, auto Unknown Analyte Automa latricia Not Available Cu/Lc Urolo [facility] [address] [facility], [place], [address], 06/01/2018 13:11:50 06/18/20 18 06/18/2018 cytol ogy, [...] 11:25 Page 1 of 1 Not Available [facility] [address] [place] [address], [address], 06/22/2018 11:27:04 06/18/20 18 06/18/2018 urina lysis , dipst ick, auto Unknown Analyte Yellow Not Available [facility] Surgery Schedule [address] [place] [address], [address], 06/18/2018 12:28:19 06/18/20 18 06/18/2018 urina lysis , dipst ick, auto Unknown Analyte Clear Not Available [facility] Surgery Schedule [address] [place] [address], [address], 06/18/2018 12:28:19 06/18/20 18 06/18/2018 urina lysis , dipst ick, auto Unknown Analyte 1.015 Not Available [facility] Surgery Schedule [address] [place] [address], [address], 06/18/2018 12:28:19 06/18/20 18 06/18/2018 urina lysis , dipst ick, auto Unknown Analyte 9.0 Not Available [facility] Surgery Schedule [address] [place] [address], [address], 06/18/2018 12:28:19 06/18/20 18 06/18/2018 urina lysis , dipst ick, auto Unknown Analyte 25 Jia/ul Trace Not Available [facility] Surgery Schedule [address] [place] [address], [address], 06/18/2018 12:28:19 06/18/20 18 06/18/2018 urina lysis , dipst ick, auto Unknown Analyte Negati ve Not Available [facility] Surgery Schedule [address] [place] [address], [address], 06/18/2018 12:28:19 06/18/20 18 06/18/2018 urina lysis , dipst ick, auto Unknown Analyte Negtiv e Not Available [facility] Surgery Schedule [address] [place], [address], 06/18/2018 12:28:19 06/18/20 18 06/18/2018 urina lysis , dipst ick, auto Unknown Analyte Normal Not Available [facility] Surgery Schedule [address] [place], [address], 06/18/2018 12:28:19 06/18/20 18 06/18/2018 urina lysis , dipst ick, auto Unknown Analyte Negati ve Not Available [facility] Surgery Schedule [facility] [place], [address], 06/18/2018 12:28:19 06/18/20 18 06/18/2018 urina lysis , dipst ick, auto Unknown Analyte Normal Not Available [facility] Surgery Schedule [address] [place] [address], [address], 06/18/2018 12:28:19 06/18/20 18 06/18/2018 urina lysis , dipst ick, auto Unknown Analyte Negati ve Not Available [facility] Surgery Schedule [address] [place] [address], [address], 06/18/2018 12:28:19 06/18/20 18 06/18/2018 urina lysis , dipst ick, auto Unknown Analyte Negati ve Not Available [facility] Surgery Schedule [address] [place] [address], [address], 06/18/2018 12:28:19 06/18/20 18 06/18/2018 urina lysis , dipst ick, auto Unknown Analyte Clean Catch Not Available [facility] Surgery Schedule [address] [place] [address], [address], 06/18/2018 12:28:19 06/18/20 18 06/18/2018 urina lysis , dipst ick, auto Unknown Analyte Automa latricia Not Available [facility] Surgery Schedule [facility] [place], [address], 06/18/2018 12:28:19 06/18/20 18 06/18/2018 US, retro perit oneum , limit ed [address] [address] [place] t Name: JENIFFER lion : [birth year] [...] Grajeda MD on 06/18/20 18 10:12 AM [email or web address] [facility] [address] [place] [address], [address], 06/18/2018 10:26:48 06/18/20 18 06/18/2018 XR, abdom en, [address] [address] [place] Name: JENIFFER lion : [birth year] [...] Grajeda MD on 06/18/20 18 11:11 AM [email or web address] [facility] [address] [place] [address], [address], 06/19/2018 10:14:31 Result Notes Documentation Provider Name and Address Organization Details Recorded Time Xr, Abdomen, 1 View : [address] [address] Patient Name: JENIFFER MOURA Patient : 1960 [...] By: Umberto Grajeda MD TER IBARRA MD [address] [place] [address], [address], [facility] 06/19/2018 10:14:31 Procedures Surgical History Date Name Laterality Status Provider Name and Address Organization Details Recorded Time 10/12/20 18 Post Void Residual; Ultrasound completed [facility] 10/12/2018 10:28:20 06/01/20 18 Post Void Residual; Ultrasound completed [facility] 06/01/2018 13:13:10 delivery completed [facility] 06/01/2018 13:09:15 Hysterectomy completed [facility] 06/01/2018 13:09:22 Imaging Results None recorded. [...] Updated DateTime 06/01/2018 157.48 cm 31.1 kg/m2 62048.7 g 132/82 mm[Hg] Mattie Erickson [facility] 06/01/2018 13:07:38 Date Recorded Body height Body mass index (BMI) Body weight Systolic And Diastolic Provider Name and Address Organization Details Last Updated DateTime 10/12/2018 157.48 cm 31.1 kg/m2 66349.7 g 128/80 mm[Hg] [facility] [facility] 10/12/2018 10:07:58 Social History Question Answer Notes LastModified by [employer] cuaQea Details LastModified Time Tobacco Smoking Status Never Smoker Mattie Erickson [facility] 06/01/2018 13:08:45 Marital Status Informatio n [...] ICD10 Code Diagnosis IMO Codes Diagnosis Note [id number] MONSTER IBARRA MD UROLOGY [facility] [address] [facility] [address] 06/01/2018 12:25:23 06/02/2018 14:45:17 Increased frequency of urination 135990117 R35.0 Urinary tr act infectious disease 09099225 N39.0 Cystocele 884449434 N81. 10 [id number] MONSTER IBARRA MD SURGERY SCHEDULE [address] [place] [address] 06/18/2018 10:16:07 06/18/2018 10:23:15 [id number] MONSTER IBARRA MD UROLOGY [facility] [address] [place] [address] 10/12/2018 09:30:48 10/13/2018 13:25:30 Cystocele 723693980 N81.10 Health Concerns Section Related Observation LastModified by Organization Detai ls LastModified Time None Recorded Concern Status LastModified by Organization Details LastModified Time None Recorded Advance Directives Directive None Recorded Payers Insurance Date Sequence Insurance Name Policy Number Policy Vernon Covered Member ID Vernon Member ID Guarantor Name 10/11/2020 1 UMR [id number] Jeniffer Moura [id number] Jeniffer Moura 03/27/2021 PAYMENT PLAN Jeniffer Moura [...] complaints or concerns today. MONSTER IBARRA MD [address] [place] [address] [place], [address], [facility] 06/01/2018 13:39:11 10/12/2018 text/html 58 yo female here today for follow up with possible bladder prolapse. She is s/p normal cysto on 06/18/2018. She has no complaints or concerns today. She denies any dysuria or gross hematuria. MD Philomena [address]ASM[address] [place], [address], [facility] 10/12/2018 10:30:05 OBGyn Episode No OBEpisode recorded.
== END 2025-10-10 23:59 ==
LOC: LAB.DROPOF 10-11 08:53
PROVIDERS: PCP Nurse Practitioner Family; Visit Provider Nurse Practitioner Family
DX: N18.30 Chronic kidney disease, stage 3 unspecified (principal); E11.9 Type 2 diabetes mellitus without complications
CPT/HCPCS: 80048

== ENCOUNTER 2025-11-09 10:20 | Emergency (ER) | payer MEDICARE, SELFPAY ==
--- OUTSIDE RECORDS SUMMARY | 2024-07-12 06:15 | XMS_ITS ---
Author Organization [facility] Address [address] [place] [id number] Care Team Providers Care Child Welfare Manager Name Role Phone Jamie Chahal Primary Care Provider [phone] Allergies Allergen (clinical drug ingredient) Drug/Non Drug Allergy documented on EMR Reaction Allergy Type Onset Date Status Dexamethasone Unknown Drug Allergy Act bal triamcinolone Triamcinolone Unknown Drug Allergy Active Results Component Value Reference Range Notes Glucose (In-House) Reviewed date:07/13/2024 09:54:17 AM Interpretation:136 Performing Lab: Notes/Report: 136 blood glucose 136 74 - 106 mg/dL Glycohemoglobin A1c (in hous e) Reviewed date:07/13/2024 09:54:17 AM Interpretation:5.8% Normal Performing Lab: Notes/Report: 5.8% Normal glycohemoglobin 5.8% 5 - 6.5 % P-Comprehensive Metabolic Pa bryce (CMP) Reviewed date:07/13/2024 09:54:17 AM Interpretation:gluc 102, Cr 1.11, gfr 56 Performing Lab: Notes/Report: Test performed by [facility] [place] , [address], [place] [address] Johnny Smith MD, Haul Driver CLIA: [id number] Sodium 138 135-145 mmol/L Potassium 4.8 3.5-5.3 mmol/L Chloride 103 97-108 mmol/L CO2 27 22-32 mmol/L Glucose 102 65-99 mg/dL BUN 19 8-23 mg/dL Creatinine 1.11 0.50-1.00 mg/dL Calcium 9.8 8.6-10.4 mg/dL eGFR by Creatinine 56 >59 mL/min/1.73m2 Protein 6.5 6.0-8.3 g/dL Albumin 4.2 3.5-5.3 g/dL Alkaline Phosphatase 87 35-121 IU/L ALT (SGPT) 12 <5-47 IU/L AST (SGOT) 15 <5-40 IU/L Bilirubin, Total 0.4 <0.2-1.2 mg/dL A/G Ratio 1.8 1.1-2.5 P-T4 Free (thyroxine) Reviewed date:07/13/2024 09:54:17 AM Interpretation: Normal Performing Lab: Notes/Report: Test performed by [facility] [address] [place] [address] , [place] [address] Johnny Smith MD, Haul Driver CLIA: [id number] Thyroxine Free (free T4) 1.48 0.86-1.76 ng/dL P-Lipid Panel Reviewed date:07/13/2024 09:54:17 AM Interpretation: Normal Performing Lab: Notes/Report: Test performed by [facility] [address] [place] [address] , [address], [place] [address] Johnny Smith MD, Haul Driver CLIA: [id number] Cholesterol 135 <200 mg/dL Triglycerides 79 <150 mg/dL HDL Cholesterol 56 >39 mg/dL Cholesterol / HDL Ratio 2.41 0.00-4.44 Ratio Non-HDL Cholesterol 79 <130 mg/dL LDL Cholesterol (Calculation) 63 <130 mg/dL LDL Cholesterol Levels* Less than 100 mg/dL Optimal 100 to 129 mg/dL Near Optimal/ Above Optimal 130 to 159 mg/dL Borderline High 160 to 189 mg/dL High 190 mg/dL and above Very High * Categories as recommended by the 2004 ATPIII guidelines LDL/HDL Ratio 1.1 <3.3 Ratio LDL Cholesterol Patient History Test Date: 07/12/2024 LDL Results: 63 Units: mg/dL % Change: - P-TSH Reviewed date:07/13/2024 09:54:17 AM Interpretation: Normal Performing Lab: Notes/Report: Test performed by [facility] [address] , [address], [place] [address] Johnny Smith MD, Haul Driver CLIA: [id number] TSH 0.65 0.43-5.25 mU/L P-Microalbumin/Creatinine, R andom Urine Sample Reviewed date:07/13/2024 09:54:17 AM Interpretation:satisfactory Performing Lab: Notes/Report: Test performed by [facility] [address] , [address], [place] [address] Johnny Smith MD, Haul Driver CLIA: [id number] Albumin/Creatinine Ratio, Urine See Comment 0-30 ug/mg Unable to calculate Urine Albumin/Creatinine Ratio when urine creatinine or urine albumin fall outside established reportable range. Microalbumin, Urine, Random <0.3 Creatinine, Urine 59.4 P-Vitamin D 25-Hydroxy Reviewed date:07/13/2024 09:54:17 AM Interpretation:36.8 Performing Lab: Notes/Report: Test performed by [facility] [address] [place] [address] , [address], [place] [address] Johnny Smith MD, Haul Driver CLIA: [id number] Vitamin D 25-Hydroxy 36.8 30.0-100.0 ng/mL Interpretation of Vitamin D 25 OH: < 20 ng/mL - Deficiency 20 - 29 ng/mL - Insufficiency 30 - 100 ng/mL - Sufficiency > 100 ng/mL - Super-therapeutic- toxicity may occur above this level. Clinical correlation required. REASON FOR VISIT 6 Month Follow Up Medications Medication SIG (Take, Route, Frequency, Duration) Notes Start Date End Date Status Omeprazole 40 MG Take 1 capsule by mouth once daily Active Atorvastatin Calcium 40 MG 1 tab(s) oral ly once a day Active metFORMIN HCl ER 500 MG Take 1 tablet by mouth once daily Active Euthyrox 100 MCG 1 tab(s) orally once a day 08/21/2022 Active Atenolol 50 MG 1/2 tab(s) orally once a day Active Folic Acid 1 MG 1 tab(s) orally once a day; Duration: 90 days Active Isosorbide Mononitrate ER 30 MG 1 tab(s) orally once a day (in the morning); Duration: 90 days Active hydroCHLOROthiazide 25 MG 1 tab(s) orall y once a day Active Losartan Potassium 50 MG 1 tab(s) orally once a day Active Ranolazine ER 500 MG 1 tab(s) orally 2 times a day Active Spironolactone 25 MG 1 tab(s) orally onc e a day; Duration: 30 day(s) Active rOPINIRole HCl 0.25 MG TAKE 1 TABLET BY MOUTH ONCE DAILY AT NIGHT; Duration: 90 days Active Vitamin D3 250 MCG (34453 UT) 1 cap(s) o rally once a week 09/02/2022 Active Aspirin 81 MG 1 tab(s) chewed once a day; Duration: 30 day(s) Active Gabapentin 100 MG 1 cap(s) orally once a day Active Vitamin D (Ergocalciferol) 1 .25 MG (66666 UT) 1 cap(s) orally once a week Active Nurtec 75 MG 1 tab(s) orally once 07/02/2021 Active B-12 1000 MCG 1 tab(s) orally once a day; Duration: 30 day(s) Active MAGNESIUM ACETATE TETRAHYDRA TE, 500 G Active Vital Signs Blood pressure systolic 110 mm Hg 07/12/20 24 Blood pressure diastolic 72 mm Hg 024 Heart Rate 73 /min 07/12/2024 Height 62 in 07/12/2024 Weight 183 lbs 07/12/2024 BMI 33.47 kg/m2 07/12/2024 Encounters Encounter Location Date Provider Diagnosis [facility] [address] [facility] [address] [place] [id number] 07/12/2024 Jamie Chahal Essential hypertensi on I10 ; Pure hypercholesterolemia E78.00 ; Type 2 diabetes mellitus E11.9 ; Acquired hypothyroidism E03.9 ; Vitamin D deficiency E55.9 and Gastroesophageal reflux disease, esophagitis presence not specified K21.9 Assessments Encounter Date Diagnosis (ICD Code) Assessment Notes Treatment Notes Treatment Clinical Notes Section Notes 07/12/2024 Essential hypertensi on (ICD-10 - I10) 07/12/2024 Pure hypercholesterolemia (ICD-10 - E78.00) 07/12/2024 Type 2 diabetes sophia itus (ICD-10 - E11.9) 07/12/2024 Acquired hypothyroid ism (ICD-10 - E03.9) 07/12/2024 Vitamin D deficiency (ICD-10 - E55.9) 07/12/2024 Gastroesophageal ref lux disease, esophagitis presence not specified (ICD-10 - K21.9) Plan Of Treatment Medication Medication Name Sig Start Date Stop Date Notes Omeprazole 40 MG Take 1 capsule by mo uth once daily Atorvastatin Calcium 40 MG 1 tab(s) orally once a day metFORMIN HCl ER 500 MG Take 1 tablet by mouth once daily Euthyrox 100 MCG 1 tab(s) orally once a day 08/21/2022 Atenolol 50 MG 1/2 tab(s) orally once a day hydroCHLOROthiazide 25 MG 1 tab(s) orally once a day Losartan Potassium 50 MG 1 tab(s) orally once a day Next Appt Details Follow Up: 6 Months, Reason: Progress Notes * MICHAEL MOURACHARLAB:1960 ( 65 yo F)Acc No.[id number]:07/12/2024 Progress Notes Patient: JENIFFER PETERSON Provider: Marnie Chahal M.D. :1960 A ge:64 Y S ex:Female Date:07/12/2024 Address:[address] [place] [address] [id number] Subjective: * Chief Complaints: * 1 . 6 Month Follow Up. * HPI: C ardiology: 64 year old female presents with c/o Blood Pressure Elevated?Pt here for 6 mo f/u on hypertension, states she is doing well and does not have any concerns.? c/o Hyperlipidemia P t is not fasting today. E ndocrinology: c/o Hypothyroidism P t here to f/u. Pt would like thyroid checked today due to dizziness and bilateral leg pain. Pt's last TSH and Free T4 07/17/2023. * ROS: D ERMATOLOGY: no R alphonse. n o H deisi. G ASTROENTEROLOGY: no N ausea. n o V omiting. U ROLOGY: no D ifficulty urinating. n o B lood in urine. * Medical History: C oronary Artery Disease, 2019, Hypertension, Hypothyroidism, Allergic Rhinitis, Hyperlipidemia, Esophageal Reflux, Restless Leg Syndrome, Lumbar facet arthropathy, Declared disabled by social security administration June 2021. * Surgical History: C Section x2 , Hysterectomy , Colonoscopy 2011, LT Heart Cath x 2 05/2020, Cardiac Stent x 6 06/2020, Cardiac Stent x2 01/2021. * Hospitalization/Major Diagno stic Procedure: S yncope- [facility] ER 11/03/2020, Syncope, Anemia- H 01/14-01/16/2021, Migraine 07/01/2021. * Family History: S filipe: alive. C juan: alive. F ather: diagnosed with Hypertension, Heart Disease. M other: diagnosed with Diabetes, Hypertension. 2 brother(s) - healthy. 2 son(s) - healthy. . Cancer - Liver, Skin, Breast. * Social History: C URRENT TOBACCO USE: No . C affeine: yes, frequency:. Alcohol: no. Past smoking status: never smoked. * Medications: T aking Gabapentin 100 MG Capsule 1 cap(s) orally once a day , Taking MAGNESIUM ACETATE TETRAHYDRATE, 500 G , Taking B-12 1000 MCG Tablet 1 tab(s) orally once a day , Taking Nurtec 75 MG Tablet Disintegrating 1 tab(s) orally once , Taking Vitamin D (Ergocalciferol) 1.25 MG (39719 UT) Capsule 1 cap(s) orally once a week , Taking Aspirin 81 MG Tablet Chewable 1 tab(s) chewed once a day , Taking Vitamin D3 250 MCG (50804 UT) Capsule 1 cap(s) orally once a week , Taking Losartan Potassium 50 MG Tablet 1 tab(s) orally once a day , Taking hydroCHLOROthiazide 25 MG Tablet 1 tab(s) orally once a day , Taking rOPINIRole HCl 0.25 MG Tablet TAKE 1 TABLET BY MOUTH ONCE DAILY AT NIGHT , Taking Spironolactone 25 MG Tablet 1 tab(s) orally once a day , Taking Folic Acid 1 MG Tablet 1 tab(s) orally once a day , Taking Ranolazine ER 500 MG Tablet Extended Release 12 Hour 1 tab(s) orally 2 times a day , Taking Atorvastatin Calcium 40 MG Tablet 1 tab(s) orally once a day , Taking metFORMIN HCl ER 500 MG Tablet Extended Release 24 Hour Take 1 tablet by mouth once daily , Taking Atenolol 50 MG Tablet 1/2 tab(s) orally once a day , Taking Euthyrox 100 MCG Tablet 1 tab(s) orally once a day , Taking Omeprazole 40 MG Capsule Delayed Release Take 1 capsule by mouth once daily , Taking Isosorbide Mononitrate ER 30 MG Tablet Extended Release 24 Hour 1 tab(s) orally once a day (in the morning) , Discontinued Cefdinir 300 MG Capsule 1 cap(s) Orally Two times a day , Medication List reviewed and reconciled with the patient * Allergies: D examethasone, Triamcinolone. Objective: * Vitals: W t:183, Temp:97.8, BP:110/72, HR:73, Nurse:niki, Ht: 62, BMI:33.47. * Examination: C ardiology: General Appearance: p leasant, NAD. H eart sounds: R RR, normal S1, S2. L ungs: c lear, no rales or wheezes. E xtremities: n o leg edema. Assessment: * Assessment: 1. E ssential hypertension - I10 (Primary) 2 . P ure hypercholesterolemia - E78.00 3 . T ype 2 diabetes mellitus - E11.9 4 . A cquired hypothyroidism - E03.9 5 . V itamin D deficiency - E55.9 6 . Gastroesophageal reflux disease, esophagitis presence not specified - K21.9 Plan: * Treatment: Value Reference Range A /G Ratio 1.8 1.1-2.5 - * A lbumin 4.2 3.5-5.3 - g/dL * A lkaline Phosphatase 87 35-121 - IU/L * A LT (SGPT) 12 <5-47 - IU/L * A ST (SGOT) 15 <5-40 - IU/L * B ilirubin, Total 0.4 <0.2-1.2 - mg/dL * B UN 19 8-23 - mg/dL * C alcium 9.8 8.6-10.4 - mg/dL * C hloride 103 97-108 - mmol/L * C O2 27 22-32 - mmol/L * C reatinine 1.11 H 0.50-1.00 - mg/dL * G lucose 102 H 65-99 - mg/dL * P otassium 4.8 3.5-5.3 - mmol/L * S odium 138 135-145 - mmol/L * P rotein 6.5 6.0-8.3 - g/dL * e GFR by Creatinine 56 L >59 - mL/min/1.73m2 * Mary Kay Alba 07/13/2024 9:54: 10 AM >See phone encounter 2.?Pure hypercholesterolemia? Continue Atorvastatin Calcium Tablet, 40 MG, 1 tab(s), orally, once a day.?LAB: P-Comprehensive Metabolic Panel (CMP) (Collection Date & Time - 07/12/2024 10:51 AM)?gluc 102, Cr 1.11, gfr 56* Value Reference Range A /G Ratio 1.8 1.1-2.5 - * A lbumin 4.2 3.5-5.3 - g/dL * A lkaline Phosphatase 87 35-121 - IU/L * A LT (SGPT) 12 <5-47 - IU/L * A ST (SGOT) 15 <5-40 - IU/L * B ilirubin, Total 0.4 <0.2-1.2 - mg/dL * B UN 19 8-23 - mg/dL * C alcium 9.8 8.6-10.4 - mg/dL * C hloride 103 97-108 - mmol/L * C O2 27 22-32 - mmol/L * C reatinine 1.11 H 0.50-1.00 - mg/dL * G lucose 102 H 65-99 - mg/dL * P otassium 4.8 3.5-5.3 - mmol/L * S odium 138 135-145 - mmol/L * P rotein 6.5 6.0-8.3 - g/dL * e GFR by Creatinine 56 L >59 - mL/min/1.73m2 * Mary Kay Alba 07/13/2024 9:54: 10 AM >See phone encounter ?LAB: P-Lipid Panel (Collection Date & Time - 07/12/2024 10:51 AM)?Normal* Value Reference Range C holesterol / HDL Ratio 2.41 0.00-4.44 - Ratio * C holesterol 135 <200 - mg/dL * H DL Cholesterol 56 >39 - mg/dL * L DL Cholesterol (Calculation) 63 <130 - mg/d L * L DL/HDL Ratio 1.1 <3.3 - Ratio * N on-HDL Cholesterol 79 <130 - mg/dL * T riglycerides 79 <150 - mg/dL * Mary Kay Alba 07/13/2024 9:54: 10 AM >See phone encounter 3.?Type 2 diabetes mellitus? Continue metFORMIN HCl ER Tablet Extended Release 24 Hour, 500 MG, Take 1 tablet by mouth once daily.?LAB: P-Comprehensive Metabolic Panel (CMP) (Collection Date & Time - 07/12/2024 10:51 AM)?gluc 102, Cr 1.11, gfr 56* Value Reference Range A /G Ratio 1.8 1.1-2.5 - * A lbumin 4.2 3.5-5.3 - g/dL * A lkaline Phosphatase 87 35-121 - IU/L * A LT (SGPT) 12 <5-47 - IU/L * A ST (SGOT) 15 <5-40 - IU/L * B ilirubin, Total 0.4 <0.2-1.2 - mg/dL * B UN 19 8-23 - mg/dL * C alcium 9.8 8.6-10.4 - mg/dL * C hloride 103 97-108 - mmol/L * C O2 27 22-32 - mmol/L * C reatinine 1.11 H 0.50-1.00 - mg/dL * G lucose 102 H 65-99 - mg/dL * P otassium 4.8 3.5-5.3 - mmol/L * S odium 138 135-145 - mmol/L * P rotein 6.5 6.0-8.3 - g/dL * e GFR by Creatinine 56 L >59 - mL/min/1.73m2 * Mary Kay Alba 07/13/2024 9:54: 10 AM >See phone encounter ?LAB: P-Microalbumin/Creatinine, Random Urine Sample (Collection Date & Time - 07/12/2024 10:51 AM)?satisfactory* Value Reference Range A lbumin/Creatinine Ratio, Urine See Comment L 0-30 - ug /mg * C reatinine, Urine 59.4 - mg/dL * M icroalbumin, Urine, Random <0.3 - mg/dL * Mary Kay Alba 07/13/2024 9:54: 10 AM >See phone encounter ?LAB: Glucose (In-House) (Collection Date & Time - 07/12/2024)?136* Value Reference Range b lood glucose 136 74 - 106 mg/dL * Marina Michael 07/12/2024 12:1 4:28 PM > Mary Kay Alba 07/13/2024 9:54:10 AM >See phone encounter ?LAB: Glycohemoglobin A1c (in house) (Collection Date & Time - 07/12/2024)? 5.8% Normal* Value Reference Range g lycohemoglobin 5.8% 5 - 6.5 % * Marina Michael 07/12/2024 12:1 4:09 PM > Mary Kay Alba 07/13/2024 9:54:10 AM >See phone encounter 4.?Acquired hypothyroidism? Continue Euthyrox Tablet, 100 MCG, 1 tab(s), orally, once a day.?LAB: P-T4 Free (thyroxine) (Collection Date & Time - 07/12/2024 10:51 AM)? Normal* Value Reference Range T hyroxine Free (free T4) 1.48 0.86-1.76 - ng/d L * Mary Kay Alba 07/13/2024 9:54: 10 AM >See phone encounter ?LAB: P-TSH (Collection Date & Time - 07/12/2024 10:51 AM)?Normal* Value Reference Range T SH 0.65 0.43-5.25 - mU/L * Mary Kay Alba 07/13/2024 9:54: 10 AM >See phone encounter 5.?Vitamin D deficiency?LAB: P-Vitamin D 25-Hydroxy (Collection Date & Time - 07/12/2024 10:51 AM)? 36.8* Value Reference Range V itamin D 25-Hydroxy 36.8 30.0-100.0 - ng/mL * Mary Kay Alba 07/13/2024 9:54: 10 AM >See phone encounter 6.?Gastroesophageal reflux disease, esophagitis presence not specified? Continue Omeprazole Capsule Delayed Release, 40 MG, Take 1 capsule by mouth once daily.?? * Procedure Codes: G 2211 Complex e/[place], [address] GLUCOSE TEST, 94275 GLYCATED HEMOGLOBIN TEST, Modifiers: QW , 3044F HG A1C LEVEL LT 7.0%, 3074F SYST BP LT 130 MM HG, 3078F DIAST BP < 80 MM HG * Follow Up: 6 Months * Images: Billing Information: * Visit Code: 57821 Office Visit, Est Pt., Level 4. * Procedure Codes: G2211 Complex e/[place]. [address] GLUCOSE TEST. 54585 GLYCATED HEMOGLOBIN TEST. Modifiers: QW 3044F HG A1C LEVEL LT 7.0%. 3074F SYST BP LT 130 MM HG. 3078F DIAST BP < 80 MM HG. * Electronic signature of Brooke Chahal MD on 11/09/2025 at 10:32 AM EST Sign off status: Pending * Provider: Marnie Chahal M.D. Date: 0 07/12/2024 Generated for Luisa pizarro/Nolan/Nasitting on: 1 01/10/2025 10:32 AM EST History and Physical Notes * HPI (History of Present Illness) Category Sub-Category Detail Notes Category Not es Endocrinology Hypothyroidism Pt here to f/u. Pt would like thyroid checked today due to dizziness and bilateral leg pain. Pt's last TSH and Free T4 07/17/2023 Cardiology Blood Pressure Elevated Pt here for 6 mo f/u on hypertension, states she is doing well and does not have any concerns Hyperlipidemia Pt is not fasting to day Examination Category Sub-Category Detail Notes Category Not es Cardiology Lungs: clear, no rales or wheezes Heart sounds: RRR, normal S1, S2 Extremities: no leg edema General Appearance: pleasant, NAD
--- OUTSIDE RECORDS SUMMARY | 2024-09-17 06:15 | XMS_ITS ---
Author Organization [facility] Address [address] [place] [id number] Care Team Providers Care Agricultural Service Technician Name Role Phone WaikoloaJamie Primary Care Provider [phone] Results Component Value Reference Range Notes H-Occult Blood, Stool Reviewed date:09/20/2024 03:49:50 PM Interpretation: Negative Performing Lab: Notes/Report: OB Negative Negative REASON FOR VISIT Flu Shot Medications Medication SIG (Take, Route, Frequency, Duration) Notes Start Date End Date Status Gabapentin 100 MG 1 cap(s) orally once a day Active Folic Acid 1 MG 1 tab(s) orally once a day; Duration: 90 days Active Omeprazole 40 MG Take 1 capsule by mouth once daily for 90 days; Duration: 90 Active Ranolazine ER 500 MG 1 tab(s) orally 2 times a day Active Atorvastatin Calcium 40 MG 1 tab(s) oral ly once a day; Duration: 90 days Active hydroCHLOROthiazide 25 MG 1 tab(s) orall y once a day Active Euthyrox 100 MCG 1 tab(s) orally once a day 08/21/2022 Active Atenolol 50 MG 1/2 tab(s) orally once a day Active rOPINIRole HCl 0.25 MG TAKE 1 TABLET BY MOUTH ONCE DAILY AT NIGHT; Duration: 90 days Active metFORMIN HCl ER 500 MG Take 1 tablet by mouth once daily Active Aspirin 81 MG 1 tab(s) chewed once a day; Duration: 30 day(s) Active Spironolactone 25 MG 1 tab(s) orally onc e a day; Duration: 30 day(s) Active Vitamin D3 250 MCG (39786 UT) 1 cap(s) o rally once a week 09/02/2022 Active Losartan Potassium 50 MG 1 tab(s) orally once a day Active Isosorbide Mononitrate ER 30 MG 1 tab(s) orally once a day (in the morning); Duration: 90 days Active MAGNESIUM ACETATE TETRAHYDRA TE, 500 G Active Nurtec 75 MG 1 tab(s) orally once 07/02/2021 Active B-12 1000 MCG 1 tab(s) orally once a day; Duration: 30 day(s) Active Vitamin D (Ergocalciferol) 1 .25 MG (31688 UT) 1 cap(s) orally once a week Active Immunizations Vaccine Route Administration Date Status Comme nts Fluzone Quad (6months&older) IM Intramuscular 09/17/2024 Administered Problems Problem Type SNOMED Code ICD Code Onset Dates Problem Status W/U Status Risk Notes Problem Anemia (951946609) Anemia, unspecified type (D64.9) Active confirmed Encounters Encounter Location Date Provider Diagnosis [facility] [address] [facility] [address] [place] [id number] 09/17/2024 Jamie Chahal Encounter for immunization Z23 and Anemia, unspecified type D64.9 Assessments Encounter Date Diagnosis (ICD Code) Assessment Notes Treatment Notes Treatment Clinical Notes Section Notes 09/17/2024 Encounter for immunization (ICD-10 - Z23) 09/17/2024 Anemia, unspecified type (ICD-10 - D64.9) Plan Of Treatment Next Appt Details Follow Up: 2 Weeks, Reason: Progress Notes * MARTELLJONGUILHERMEB:1960 ( 65 yo F)Acc No.[id number]:09/17/2024 Patient: JENIFFER PETERSON Provider: Marnie Chahal M.D. :1960 A ge:64 Y S ex:Female Date:09/17/2024 Address:[address] [place] [address] [id number] Subjective: * Chief Complaints: * 1 . Flu Shot. * Medical History: * Medications: T aking Gabapentin 100 MG Capsule 1 cap(s) orally once a day , Taking MAGNESIUM ACETATE TETRAHYDRATE, 500 G , Taking B-12 1000 MCG Tablet 1 tab(s) orally once a day , Taking Nurtec 75 MG Tablet Disintegrating 1 tab(s) orally once , Taking Vitamin D (Ergocalciferol) 1.25 MG (02514 UT) Capsule 1 cap(s) orally once a week , Taking Aspirin 81 MG Tablet Chewable 1 tab(s) chewed once a day , Taking Vitamin D3 250 MCG (03404 UT) Capsule 1 cap(s) orally once a week , Taking Spironolactone 25 MG Tablet 1 tab(s) orally once a day , Taking Isosorbide Mononitrate ER 30 MG Tablet Extended Release 24 Hour 1 tab(s) orally once a day (in the morning) , Taking Losartan Potassium 50 MG Tablet 1 tab(s) orally once a day , Taking hydroCHLOROthiazide 25 MG Tablet 1 tab(s) orally once a day , Taking Atenolol 50 MG Tablet 1/2 tab(s) orally once a day , Taking Euthyrox 100 MCG Tablet 1 tab(s) orally once a day , Taking metFORMIN HCl ER 500 MG Tablet Extended Release 24 Hour Take 1 tablet by mouth once daily , Taking rOPINIRole HCl 0.25 MG Tablet TAKE 1 TABLET BY MOUTH ONCE DAILY AT NIGHT , Taking Omeprazole 40 MG Capsule Delayed Release Take 1 capsule by mouth once daily for 90 days , Taking Folic Acid 1 MG Tablet 1 tab(s) orally once a day , Taking Atorvastatin Calcium 40 MG Tablet 1 tab(s) orally once a day , Taking Ranolazine ER 500 MG Tablet Extended Release 12 Hour 1 tab(s) orally 2 times a day , Medication List reviewed and reconciled with the patient Objective: * Vitals: Assessment: * Assessment: 1. E ncounter for immunization - Z23 (Primary) 2 . A nemia, unspecified type - D64.9 Plan: * Treatment: Value Reference Range O B Negative Negative - * Marina Michael 09/20/2024 11:4 1:05 AM > sent to Marita to inform Marita Petit 09/20/2024 3:49:37 PM > Pt informed * Immunizations: Fluzone Quad (6months&older) : 0.5 mL (Route: Intramuscular) given by Marita Watson on Right Deltoid (Encounter for immunization) * Follow Up: 2 Weeks * Images: Billing Information: * Visit Code: * Procedure Codes: * Electronic signature of Brooke Chahal MD on 11/09/2025 at 10:32 AM EST Sign off status: Pending * Provider: Marnie Chahal M.D. Date: 11/17/2023 Generated for Luisa pizarro/Nolan/Marcela on: 01/10/2025 10:32 AM EST
--- OUTSIDE RECORDS SUMMARY | 2024-10-01 06:15 | XMS_ITS ---
Author Organization [facility] Address [address] [place] [id number] Care Team Providers Care Grinder Setup Operator Name Role Phone Jamie Chahal Primary Care Provider Allergies Allergen (clinical drug ingredient) Drug/Non Drug Allergy documented on EMR Reaction Allergy Type Onset Date Status Dexamethasone Unknown Drug Allergy Act bal triamcinolone Triamcinolone Unknown Drug Allergy Active Results Component Value Reference Range Notes CBC Venipuncture (in house) Reviewed date:10/04/2024 11:01:01 AM Interpretation:RBC 3.53, HGB 10.2, HCT 31.2 Performing Lab: Notes/Report: RBC 3.53, HGB 10.2, HCT 31.2 wbc 6.6 3.5 - 10 lymph 22.0% 15 - 50 mid 6.8% 2 - 15 gran 71.2% 35 - 80 rbc 3.53 3.5 - 5.5 hgb 10.2 11.5 - 16.5 hct 31.2 35 - 55 mcv 88.4 75 - 100 mch 29.0 25 - 35 mchc 32.7 31 - 38 platlet 441 100 - 400 P-Vitamin B12 Reviewed date:10/04/2024 11:01:01 AM Interpretation:Normal Performing Lab: Notes/Report: Test performed by [employer], [employer] [facility] , [address], [place] [address] Johnny Smith MD, Mannequin Maker CLIA: [id number] Vitamin B12 9029 092-9329 pg/mL P-Basic Metabolic Panel (BMP ) Reviewed date:10/04/2024 11:01:01 AM Interpretation:Creat 1.10, eGFR 56 Performing Lab: Notes/Report: Test performed by [employer] [address] [facility], [place] [address] Johnny Smith MD, Mannequin Maker CLIA: [id number] Sodium 139 135-145 mmol/L Potassium 4.7 3.5-5.3 mmol/L Chloride 103 97-108 mmol/L CO2 24 22-32 mmol/L Glucose 89 65-99 mg/dL BUN 20 8-23 mg/dL Creatinine 1.10 0.50-1.00 mg/dL Calcium 9.5 8.6-10.4 mg/dL eGFR by Creatinine 56 >59 mL/min/1.73m2 P-Iron with Transferrin Satu ration Reviewed date:10/04/2024 11:01:01 AM Interpretation:Transferrin 375, Trans Sat 12% Performing Lab: Notes/Report: Test performed by [employer] [address] [facility], [place] [id number] Johnny Smith MD, Mannequin Maker CLIA: [id number] Iron 65 37-145 ug/dL Transferrin 375 200-360 mg/dL Transferrin Saturation Percentage 12 15-50 % P-Phosphorus Reviewed date:10/04/2024 11:01:01 AM Interpretation:Normal Performing Lab: Notes/Report: Test performed by [employer] [address] [place] [address] Johnny Smith MD, Mannequin Maker CLIA: [id number] Phosphorus 4.1 2.5-4.5 mg/dL P-Parathyroid Hormone (PTH) Intact Reviewed date:10/04/2024 11:01:01 AM Interpretation:Normal Performing Lab: Notes/Report: Test performed by [employer] [address], [place] [address] Johnny Smith MD, Mannequin Maker CLIA: [id number] Parathyroid Hormone (PTH) Intact 40.9 15.0-65. 0 pg/mL REASON FOR VISIT 2 weeks Medications Medication SIG (Take, Route, Frequency, Duration) Notes Start Date End Date Status Nurtec 75 MG 1 tab(s) orally once 07/02/2021 Active B-12 1000 MCG 1 tab(s) orally once a day; Duration: 30 day(s) Active MAGNESIUM ACETATE TETRAHYDRA TE, 500 G Active Gabapentin 100 MG 1 cap(s) orally once a day Active Atenolol 50 MG 1/2 tab(s) orally once a day; Duration: 90 days Active metFORMIN HCl ER 500 MG 1 tablet Orally Once a day; Duration: 90 days Active Ranolazine ER 500 MG 1 tab(s) orally 2 times a day Active Atorvastatin Calcium 40 MG 1 tab(s) oral ly once a day; Duration: 90 days Active Famotidine 40 MG 1 tablet Orally Once a day; Duration: 90 days 10/01/2024 Active Folic Acid 1 MG 1 tab(s) orally once a day; Duration: 90 days Active rOPINIRole HCl 0.25 MG TAKE 1 TABLET BY MOUTH ONCE DAILY AT NIGHT; Duration: 90 days Active Euthyrox 100 MCG 1 tab(s) orally once a day 08/21/2022 Active hydroCHLOROthiazide 25 MG 1 tab(s) orall y once a day Active Losartan Potassium 50 MG 1 tab(s) orally once a day Active Aspirin 81 MG 1 tab(s) chewed once a day; Duration: 30 day(s) Active Vitamin D (Ergocalciferol) 1 .25 MG (89497 UT) 1 cap(s) orally once a week Active Spironolactone 25 MG 1 tab(s) orally onc e a day; Duration: 30 day(s) Active Vitamin D3 250 MCG (15630 UT) 1 cap(s) o rally once a week 09/02/2022 Active Vital Signs Blood pressure systolic 130 mm Hg 10/01/20 24 Blood pressure diastolic 72 mm Hg 024 Heart Rate 61 /min 10/01/2024 Height 62 in 10/01/2024 Weight 188 lbs 10/01/2024 BMI 34.38 kg/m2 10/01/2024 Encounters Encounter Location Date Provider Diagnosis [facility] [address] [facility] [address] [place] [id number] 10/01/2024 Jamie Chahal Renal insufficiency N28.9 ; Anemia, unspecified type D64.9 ; Gastroesophageal reflux disease, esophagitis presence not specified K21.9 and Essential hypertension I10 Assessments Encounter Date Diagnosis (ICD Code) Assessment Notes Treatment Notes Treatment Clinical Notes Section Notes 10/01/2024 Renal insufficiency (ICD-10 - N28.9) 10/01/2024 Anemia, unspecified type (ICD-10 - D64.9) 10/01/2024 Gastroesophageal reflux disease, esophagitis presence not specified (ICD-10 - K21.9) 10/01/2024 Essential hypertension (ICD-10 - I10) Plan Of Treatment Medication Medication Name Sig Start Date Stop Date Notes Atenolol 50 MG 1/2 tab(s) orally on ce a day; Duration: 90 days Famotidine 40 MG 1 tablet Orally Once a day; Duration: 90 days 10/01/2024 Omeprazole 40 MG Take 1 capsule by [facility] once daily for 90 days Next Appt Details Follow Up: via phone to repo rt test results, Reason: Progress Notes * TRUE, JONNDADOB:1960 ( 65 yo F)Acc No.[id number]:10/01/2024 Progress Notes Patient: JENIFFER PETERSON Provider: Marnie Chahal M.D. :1960 A ge:64 Y S ex:Female Date:10/01/2024 Address:[address] [place], [place] [address] [id number] Subjective: * Chief Complaints: * 1 . 2 weeks. * HPI: H PI: 64 year old female presents with c/o Here for follow up on:?09/14/2024 lab results, see pt docs. Pt states that she needs to have kidney function checked again . * ROS: D ERMATOLOGY: no R alphonse. [...] * Hospitalization/Major Diagno stic Procedure: S yncope- [facility] ER 11/03/2020, Syncope, Anemia- H 01/14-01/16/2021, Migraine 07/01/2021. * Family History: S filipe: alive. Brie martinez: alive. F ather: diagnosed with Hypertension, Heart [...] , Taking Vitamin D (Ergocalciferol) 1.25 MG (36506 UT) Capsule 1 cap(s) orally once a week , Taking Aspirin 81 MG Tablet Chewable 1 tab(s) chewed once a day , Taking Vitamin D3 250 MCG (54422 UT) Capsule 1 cap(s) orally once a week , Taking Spironolactone 25 MG Tablet 1 tab(s) orally once a day , Taking Losartan Potassium 50 MG Tablet [...] orally 2 times a day , Taking metFORMIN HCl ER 500 MG Tablet Extended Release 24 Hour 1 tablet Orally Once a day , Discontinued Isosorbide Mononitrate ER 30 MG Tablet Extended Release 24 Hour 1 tab(s) orally once a day (in the morning) , Medication List reviewed and reconciled with the patient * Allergies: D examethasone, Triamcinolone. Objective: * Vitals: W t:188, Temp:98.1, BP:130/72, HR:61, Nurse:niki, Ht: 62, BMI:34.38. * Examination: G eneral Examination: General Appearance: N AD. H eart: R SR. L ungs:?clear to auscultation. E xtremities: no leg edema. Assessment: * Assessment: 1. R enal insufficiency - N28.9 (Primary) 2 . A nemia, unspecified type - D64.9 3 . G astroesophageal reflux disease, esophagitis presence not specified - K21.9 4 . E ssential hypertension - I10 Plan: * Treatment: Value Reference Range B UN 20 8-23 - mg/dL * C alcium 9.5 8.6-10.4 - mg/dL * C hloride 103 97-108 - mmol/L * C O2 24 22-32 - mmol/L * C reatinine 1.10 H 0.50-1.00 - mg/dL * G lucose 89 65-99 - mg/dL * P otassium 4.7 3.5-5.3 - mmol/L * S odium 139 135-145 - mmol/L * e GFR by Creatinine 56 L >59 - mL/min/1.73m2 * Marina Michael 10/04/2024 11 :00:49 AM >See phone encounter ?LAB: P-Phosphorus (Collection Date & Time - 10/01/2024 10:10 AM)?Normal* Value Reference Range P hosphorus 4.1 2.5-4.5 - mg/dL * Marina Michael 10/04/2024 11: 00:49 AM >See phone encounter ?LAB: P-Parathyroid Hormone (PTH) Intact (Collection Date & Time - 10/01/2024 10:10 AM)?Normal* Value Reference Range P arathyroid Hormone (PTH) Intact 40.9 15.0-65. 0 - pg/mL * Marina Michael 10/04/2024 11: 00:49 AM >See phone encounter 2.?Anemia, unspecified type?LAB: P-Vitamin B12 (Collection Date & Time - 10/01/2024 10:10 AM)?Normal* Value Reference Range V itamin B12 3235 846-2889 - pg/mL * AlecMarina 10/04/2024 11: 00:49 AM >See phone encounter ?LAB: P-Iron with Transferrin Saturation (Collection Date & Time - 10/01/2024 10:10 AM)?Transferrin 375, Trans Sat 12%* Value Reference Range I betito 65 37-145 - ug/dL * T ransferrin 375 H 200-360 - mg/dL * T ransferrin Saturation Percentage 12 L 15-50 - % * Marina Michael 10/04/2024 11: 00:49 AM >See phone encounter ?LAB: CBC Venipuncture (in house) (Collection Date & Time - 10/01/2024)?RBC 3.53, HGB 10.2, HCT 31.2* Value Reference Range w bc 6.6 3.5 - 10 * l ymph 22.0% 15 - 50 * m id 6.8% 2 - 15 * g ran 71.2% 35 - 80 * r bc 3.53 3.5 - 5.5 * h gb 10.2 11.5 - 16.5 * h ct 31.2 35 - 55 * m cv 88.4 75 - 100 * m ch 29.0 25 - 35 * m chc 32.7 31 - 38 * p latlet 441 100 - 400 * Marita Watson 10/01/2024 11:17: 07 AM > Marina Michael 10/04/2024 11:00:49 AM >See phone encounter 3.?Gastroesophageal reflux disease, esophagitis presence not specified? Stop Omeprazole Capsule Delayed Release, 40 MG, Take 1 capsule by mouth once daily for 90 days; Start Famotidine Tablet, 40 MG, 1 tablet, Orally, Once a day, 90 days, 90 Tablet, Refills 1.? 4.?Essential hypertension? Refill Atenolol Tablet, 50 MG, 1/2 tab(s), orally, once a day, 90 days, 45, Refills 1.?? * Procedure Codes: G 2211 Complex e/[place], [address] CBC WITH AUTO DIFF * Follow Up: v ia phone to report test results * Images: Billing Information: * Visit Code: 62244 Office Visit, Est Pt., Level 4. * Procedure Codes: G2211 Complex e/[place]. [address] CBC WITH AUTO DIFF. * Electronic signature of Brooke Chahal MD on 11/09/2025 at 10:31 AM EST Sign off status: Pending * Provider: Marnie Chahal M.D. Date: 12/01/2023 Generated for Luisa pizarro/Nolan/Chicosmitting on: 01/10/2025 10:31 AM EST History and Physical Notes * HPI (History of Present Illness) Category Sub-Category Detail Notes Category Not es HPI Here for follow up on: 4 lab results, see pt docs. Pt states that she needs to have kidney function checked again Examination Category Sub-Category Detail Notes Category Not es General Examination Heart: RSR Lungs: clear to auscultatio n Extremities: no leg edema General Appearance: NAD
--- OUTSIDE RECORDS SUMMARY | 2025-01-10 06:00 | XMS_ITS ---
Author Organization [facility] Address [address] [facility] [address] [place] [id number] Care Team Providers Care Technician Submarine Cable Equipment Name Role Phone Jamie Chahal Primary Care Provider REASON FOR VISIT 6 month f/u Encounters Encounter Location Date Provider Diagnosis [facility] [address] [facility] [address] [place] [id number] 01/10/2025 Jamie Chahal Plan Of Treatment No Information Progress Notes * YASH MOURAB:1960 ( 65 yo F)Acc No.[id number]:01/10/2025 Progress Notes Patient: JENIFFER PETERSON Provider: Marnie Chahal M.D. :1960 A ge:64 Y S ex:Female Date:01/10/2025 Address:[id number] Subjective: * Chief Complaints: * 1 . 6 month f/u. * Medical History: Objective: * Vitals: Assessment: Plan: * Treatment: * Images: Billing Information: * Visit Code: * Procedure Codes: * Electronic signature of Brooke Chahal MD on 11/09/2025 at 10:31 AM EST Sign off status: Pending * Provider: Marnie Chahal M.D. Date: 01/10/2025 Generated for Printi ng/Faxing/eTransmitting on: 1 01/10/2025 10:31 AM EST
[2025-11-09 10:27] VITALS: BP 140/45; PULSE 68; RESP 13; TEMP 36.6; O2SAT 96; BMI 34.7
--- OUTSIDE RECORDS SUMMARY | 2025-11-09 10:31 | XMS_ITS | Clinical Summary ---
Author Organization [facility] Address [address] [place] [address] Care Team Providers Care Agency Appointments Supervisor Name Role Phone Jamie Chahal MD Primary Care Provider + [phone] Allergies Active Allergy Reactions Criticality Noted Date [...] INFLUENZA VACCINE 06/17/2025 Insurance EMPLOYEE Care Teams Agency Appointments Supervisor Relationship Specialty Start Date End Date Jamie Chahal MD [address] [facility] [address] [place] [address] PCP - General Family Medicine 07/01/21
--- OUTSIDE RECORDS SUMMARY | 2025-11-09 10:31 | XMS_ITS | Clinical Summary ---
Author Organization Healthcare Address [address] [place] [address] Care Team Providers Care Electrical Sign Servicer Name Role Phone Jamie Chahal MD Primary Care Provider [phone] Social History Tobacco Use Types Packs/Day Years [...] 2011 [facility]Y-Zoster Vaccines (1 of 2) 2011 CWM-[id number]-19 Vaccine (4 - 2024- season) 2025 11/05/2021, 12/18/2020, 11/16/2020 UKY-Influenza Vaccine (#1) 2025 10/12/2021 UKY-RSV Vaccine: 60+ Years o r (1 - 1-dose 75+ series) 2036 HPV Vaccines (No Doses Required) Completed UKY-HIB Vaccines Aged Out No longer e [...] patient's age to complete this topic Insurance [facility] [id number] EM[place] Care Teams Electrical Sign Servicer Relationship Specialty [place] [address] PCP - General 03/30/21
--- OUTSIDE RECORDS SUMMARY | 2025-11-09 10:31 | XMS_ITS | Patient Health Record ---
[facility] [address] [place] [id number] Care Team Providers Care Lgsw Name Role Phone Jamie Chahal Primary Care Provider Allergies Allergen (clinical drug ingredient) Drug/Non Drug Allergy documented on EMR Reaction Allergy Type Onset Date Status Dexamethasone Unknown Drug Allergy Act abl triamcinolone Triamcinolone Unknown Drug Allergy Active Reason For Referral No Information Medications Medication [...] 30 days Active Vitamin D3 250 MCG (02191 UT) 1 cap(s) o rally once a week 09/02/2022 Active Folic Acid 1 MG 1 tab(s) orally once a day; Duration: 30 days Active Aspirin 81 MG 1 tab(s) chewed once a day; Duration: 30 day(s) Active Vitamin D (Ergocalciferol) 1 .25 MG (64933 UT) 1 cap(s) orally once a week [...] W/U Status Risk Notes Problem Essential hypertension (79068016) Essential (primary) hypertension (I10) Active confirmed Problem Type 2 diabetes mellitus (65373281) Type 2 diabetes mellitus (E11.9) Active confirmed Problem Vitamin D deficiency (20671005) Vitamin D deficiency (E55.9) Active confirmed Problem Essential hypertension (64301981) Essential hypertension (I10) Active confirmed Problem Unstable angina (8676571) Unstable angina (I20.0) Active confirmed Problem Carotid artery occlusion (184193373) Occlusion and stenosis of unspecified carotid artery (I65.29) Active confirmed Problem Chronic maxillary sinusitis (73949665) Chronic maxillary sinusitis (J32.0) Active confirmed Problem Sciatica (59169025) Lumbago with sciatica, left side (M54.42) Active confirmed Problem Chronic pain (26390719) Other chronic pain (G89.29) Active confirmed Problem Restless legs (29383466) Restless leg (G25.81) Active confirmed Problem Acquired hypothyroidism (149662816) Acquired hypothyroidism (E03.9) Active confirmed Problem Atherosclerotic hear t disease of af[place] coronary artery without angina pectoris (535584465215921) Coronary artery disease involving [place] coronary artery of [place] heart without angina pectoris (I25.10) Active confirmed Problem Gastroesophageal reflux disease (265020629) Gastroesophageal reflux disease, esophagitis presence not specified (K21.9) Active confirmed Problem Migraine (90929674) Migraine wit hout status migrainosus, not intractable, unspecified migraine type (G43.909) Active confirmed Problem Anemia (206573939) Anemia, unspe cified type (D64.9) Active confirmed Problem Hyperlipidaemia (93504011) Hyperlipidemia, unspecified hyperlipidemia type (E78.5) Active confirmed Problem Hypothyroidism (48709337) Hypothyroidism, unspecified type (E03.9) Active confirmed Problem Stented coronary artery (622714005) Stented coronary artery (Z95.5) Active confirmed Problem Impaired fasting glycaemia (392039929) IFG (impaired fasting glucose) (R73.01) Active confirmed Problem Atherosclerotic hear t disease of [place] coronary artery without angina pectoris (690254289027381) Atherosclerosis of [place] coronary artery without angina pectoris, unspecified whether [place] or transplanted heart (I25.10) Active confirmed Problem Pure hypercholesterolemia (875202508) Pure hypercholesterolemia (E78.00) Active confirmed Problem Angina co-occurrent and due to coronary arteriosclerosis (75461416410613022) Coronary artery disease of [place] artery of [place] heart with stable angina pectoris (I25.118) Active confirmed Problem Carotid artery occlusion (091888256) Stenosis of carotid artery, unspecified laterality (I65.29) Active confirmed Problem Obesity (446182930) Non morbid o besity (E66.9) Active confirmed Problem History of placement of stent for coronary artery disease (situation) (215831556) S/P coronary artery stent placement (Z95.5) Active confirmed Problem Seasonal allergic rhinitis (770038473) Seasonal allergic rhinitis, unspecified trigger (J30.2) Active confirmed Problem Angina co-occurrent and due to coronary arteriosclerosis (02607320602745555) Coronary artery disease involving [place] coronary artery of [place] heart with other form of angina pectoris (I25.118) Active confirmed Encounters Encounter Location Date Provider Diagnosis [facility] [address] [place] [id number] 2025 Jamie Chahal Plan Of Treatment No Information Insurance Providers Payer Name Payer Address Payer Phone Subscriber Number Group Number Insured Name Patient Relationship to Insured Coverage Start Date Coverage End Date [employer] (MEDICAR E) [address] [address] [place] [address] [id number] JENIFFER MOURA Self - patient is the insured Medical [...] x2 01/2021 Hospitalization History Reason Date(Month/Year) Syncope- [facility] ER 11/03/2020 Syncope, Anemia- [facility] 01/14-01/16/2021 Migraine 07/01/2021
--- OUTSIDE RECORDS SUMMARY | 2025-11-09 10:32 | XMS_ITS | Data Portability ---
Author Organization ABEL Schultz [place] [facility] Address [address] [facility] [place] [address] Assessment Encounter Date Assessment Date Assessment LastModified [...] ysis, dipsti ck, auto 018 10/12/20 18 [email or web address] Cu/L[facility] Urology Angelica Lozano, [facility] Angelica Lozano, [place], [address], 8 10:28:36 urinal ysis, dipsti ck, auto 018 06/01/20 18 [email or web address] Cu/ Urology [facility], [address] [facility], [place], [address], 8 13:39:07 Referral None record ed. Procedures None record ed. Surgeries None record ed. Imaging None record ed. Medication Orders None record ed. Patient TargetsNo targets recorded. Patient Instructions Encounter Date Encounter Id Patient Instructions Last Modified By Organization Details Last Modified Time 06/01/2018 [id number] Female Urinary Tract Infection (UTI): Care Instructions [email or web address] Not available 06/01/2018 13:39:07 KUB/renal US/ cysto/exam to eval cystocele and sxs. [email or web address] Not available 06/01/2018 13:31:01 10/12/2018 [id number] DOing well. rtc prn. Not available 10/12/2018 10:23:59 Reason for Referral None Reported. Results Created Date Observation Date Name Description Value Unit Range Abnormal Flag Note LastModifiedBy Organization Detail LastModifiedTime 10/12/20 18 10/12/2018 urina lysis , dipst ick, auto Unknown Analyte Yellow Not Available Cu/ Urology [address] [facility], [place], [address], 10/12/2018 10:08:21 10/12/20 18 10/12/2018 urina lysis , dipst ick, auto Unknown Analyte Clear Not Available Cu/ Urology [facility] [address] [facility], [place], [address], 10/12/2018 10:08:21 10/12/20 18 10/12/2018 urina lysis , dipst ick, auto Unknown Analyte 1.005 Not Available / Urology [facility] [address] [facility], [place], [address], 10/12/2018 10:08:21 10/12/20 18 10/12/2018 urina lysis , dipst ick, auto Unknown Analyte 7.0 Not Available Cu/Lc Urology [address] [facility], [place], [address], 10/12/2018 10:08:21 10/12/20 18 10/12/2018 urina lysis , dipst ick, auto Unknown Analyte Negati ve Not Available Cu/Lc Urolo gy [address] [facility], [place], [address], 10/12/2018 10:08:21 10/12/20 18 10/12/2018 urina lysis , dipst ick, auto Unknown Analyte Negati ve Not Available Cu/Lc Urolo [facility] [address] [facility], [place], [address], 10/12/2018 10:08:21 10/12/20 18 10/12/2018 urina lysis , dipst ick, auto Unknown Analyte Negtiv e Not Available Cu/Lc Urolo [facility] [address] [facility], [place], [address], 10/12/2018 10:08:21 10/12/20 18 10/12/2018 urina lysis , dipst ick, auto Unknown Analyte Normal Not Available Cu/Lc Urology [facility] [address] [place], [address], 10/12/2018 10:08:21 10/12/20 18 10/12/2018 urina lysis , dipst ick, auto Unknown Analyte Negati ve Not Available Cu/Lc Urolo [facility] [address] [place], [address], 10/12/2018 10:08:21 10/12/20 18 10/12/2018 urina lysis , dipst ick, auto Unknown Analyte Normal Not Available Cu/Lc Urology [address] [place], [address], 10/12/2018 10:08:21 10/12/20 18 10/12/2018 urina lysis , dipst ick, auto Unknown Analyte Negati ve Not Available Cu/Lc Urolo [facility] [address] [facility], [place], [address], 10/12/2018 10:08:21 10/12/20 18 10/12/2018 urina lysis , dipst ick, auto Unknown Analyte Negati ve Not Available Cu/Lc Urolo [facility] [address] [facility], [place], [address], 10/12/2018 10:08:21 10/12/20 18 10/12/2018 urina lysis , dipst ick, auto Unknown Analyte Clean Catch Not Available Cu/Lc Urolo [facility] [address] [facility], [place], [address], 10/12/2018 10:08:21 10/12/20 18 10/12/2018 urina lysis , dipst ick, auto Unknown Analyte Visual Not Available Cu/Lc Urology [address] [facility], [place], [address], 10/12/2018 10:08:21 06/01/20 18 06/01/2018 urina lysis , dipst ick, auto Unknown Analyte Yellow Not Available Cu/Lc Urology [address] [facility], [place], [address], 06/01/2018 13:11:50 06/01/20 18 06/01/2018 urina lysis , dipst ick, auto Unknown Analyte Clear Not Available Cu/Lc Urology [address] [place], [address], 06/01/2018 13:11:50 06/01/20 18 06/01/2018 urina lysis , dipst ick, auto Unknown Analyte 1.005 Not Available Cu/Lc Urology [address] [place], [address], 06/01/2018 13:11:50 06/01/20 18 06/01/2018 urina lysis , dipst ick, auto Unknown Analyte 7.0 Not Available Cu/Lc Urology [facility] [address] [facility], [place], [address], 06/01/2018 13:11:50 06/01/20 18 06/01/2018 urina lysis , dipst ick, auto Unknown Analyte Negati ve Not Available Cu/Lc Urolo gy [facility] [address] [facility], [place], [address], 06/01/2018 13:11:50 06/01/20 18 06/01/2018 urina lysis , dipst ick, auto Unknown Analyte Negati ve Not Available Cu/Lc Urolo gy [facility] [address] [facility], [place], [address], 06/01/2018 13:11:50 06/01/20 18 06/01/2018 urina lysis , dipst ick, auto Unknown Analyte Trace Not Available Cu/Lc Urology [facility] [address] [facility], [place], [address], 06/01/2018 13:11:50 06/01/20 18 06/01/2018 urina lysis , dipst ick, auto Unknown Analyte Normal Not Available Cu/Lc Urology [facility] [address] [facility], [place], [address], 06/01/2018 13:11:50 06/01/20 18 06/01/2018 urina lysis , dipst ick, auto Unknown Analyte Negati ve Not Available Cu/Lc Urolo gy [facility] [address] [facility], [place], [address], 06/01/2018 13:11:50 06/01/20 18 06/01/2018 urina lysis , dipst ick, auto Unknown Analyte Normal Not Available Cu/Lc Urology [address] [facility], [place], [address], 06/01/2018 13:11:50 06/01/20 18 06/01/2018 urina lysis , dipst ick, auto Unknown Analyte Negati ve Not Available Cu/Lc Urolo [facility] [address] [facility], [place], [address], 06/01/2018 13:11:50 06/01/20 18 06/01/2018 urina lysis , dipst ick, auto Unknown Analyte Negati ve Not Available Cu/Lc Urolo [facility] [address] [facility], [place], [address], 06/01/2018 13:11:50 06/01/20 18 06/01/2018 urina lysis , dipst ick, auto Unknown Analyte Clean Catch Not Available Cu/Lc Urolo gy [address] [facility], [place], [address], 06/01/2018 13:11:50 06/01/20 18 06/01/2018 urina lysis , dipst ick, auto Unknown Analyte Automa latricia Not Available Cu/Lc Urolo gy [address] [facility], [place], [address], 06/01/2018 13:11:50 06/18/20 18 06/18/2018 cytol ogy, [...] 11:25 Page 1 of 1 Not Available [facility] [address] [place] [address], [address], 06/22/2018 11:27:04 06/18/20 18 06/18/2018 urina lysis , dipst ick, auto Unknown Analyte Yellow Not Available [facility] Surgery Schedule [address] [place] [address], [address], 06/18/2018 12:28:19 06/18/20 18 06/18/2018 urina lysis , dipst ick, auto Unknown Analyte Clear Not Available [facility] Surgery Schedule [address] [place] [address], [address], 06/18/2018 12:28:19 06/18/20 18 06/18/2018 urina lysis , dipst ick, auto Unknown Analyte 1.015 Not Available [facility] Surgery Schedule [address] [place] [address], [address], 06/18/2018 12:28:19 06/18/20 18 06/18/2018 urina lysis , dipst ick, auto Unknown Analyte 9.0 Not Available [facility] Surgery Schedule [address] [place] [address], [address], 06/18/2018 12:28:19 06/18/20 18 06/18/2018 urina lysis , dipst ick, auto Unknown Analyte 25 Jia/ul Trace Not Available [facility] Surgery Schedule [address] [place] [address], [address], 06/18/2018 12:28:19 06/18/20 18 06/18/2018 urina lysis , dipst ick, auto Unknown Analyte Negati ve Not Available [facility] Surgery Schedule [address] [place] [address], [address], 06/18/2018 12:28:19 06/18/20 18 06/18/2018 urina lysis , dipst ick, auto Unknown Analyte Negtiv e Not Available [facility] Surgery Schedule [address] [place], [address], 06/18/2018 12:28:19 06/18/20 18 06/18/2018 urina lysis , dipst ick, auto Unknown Analyte Normal Not Available [facility] Surgery Schedule [address] [place], [address], 06/18/2018 12:28:19 06/18/20 18 06/18/2018 urina lysis , dipst ick, auto Unknown Analyte Negati ve Not Available [facility] Surgery Schedule [facility] [place], [address], 06/18/2018 12:28:19 06/18/20 18 06/18/2018 urina lysis , dipst ick, auto Unknown Analyte Normal Not Available [facility] Surgery Schedule [address] [place] [address], [address], 06/18/2018 12:28:19 06/18/20 18 06/18/2018 urina lysis , dipst ick, auto Unknown Analyte Negati ve Not Available [facility] Surgery Schedule [address] [place] [address], [address], 06/18/2018 12:28:19 06/18/20 18 06/18/2018 urina lysis , dipst ick, auto Unknown Analyte Negati ve Not Available [facility] Surgery Schedule [address] [place] [address], [address], 06/18/2018 12:28:19 06/18/20 18 06/18/2018 urina lysis , dipst ick, auto Unknown Analyte Clean Catch Not Available [facility] Surgery Schedule [address] [place] [address], [address], 06/18/2018 12:28:19 06/18/20 18 06/18/2018 urina lysis , dipst ick, auto Unknown Analyte Automa latricia Not Available [facility] Surgery Schedule [facility] [place], [address], 06/18/2018 12:28:19 06/18/20 18 06/18/2018 US, retro perit oneum , limit ed [address] [address] [place] Name: EJNIFFER lion : [birth year] Pat[place] t 31 [...] Grajeda MD on 06/18/20 18 10:12 AM [email or web address] [facility] [address] [place] [address], [address], 06/18/2018 10:26:48 06/18/20 18 06/18/2018 XR, abdom en, [address] [address] [place] Name: JENIFFER lion : [birth year] [...] Grajeda MD on 06/18/20 18 11:11 AM [email or web address] [facility] Radiology [facility] [address] [place] [address], [address], 06/19/2018 10:14:31 Result Notes Documentation Provider Name and Address Organization Details Recorded Time Xr, Abdomen, 1 View : [address] [address] Patient Name: JENIFFER MOURA Patient : 1960 [...] By: Umberto Grajeda MD TER IBARRA MD [address] [place] [address], [address], [facility] 06/19/2018 10:14:31 Procedures Surgical History Date Name Laterality Status Provider Name and Address Organization Details Recorded Time 10/12/20 18 Post Void Residual; Ultrasound completed [facility] 10/12/2018 10:28:20 06/01/20 18 Post Void Residual; Ultrasound completed [facility] 06/01/2018 13:13:[address] [facility] 06/01/2018 13:09:[address]sterectomy [address] [facility] 06/01/2018 13:09:22 Imaging Results None recorded. [...] Updated DateTime 06/01/2018 157.48 cm 31.1 kg/m2 35596.7 g 132/82 mm[Hg] Mattie Erickson [facility] 06/01/2018 13:07:38 Date Recorded Body height Body mass index (BMI) Body weight Systolic And Diastolic Provider Name and Address Organization Details Last Updated DateTime 10/12/2018 157.48 cm 31.1 kg/m2 05350.7 g 128/80 mm[Hg] [facility] 10/12/2018 10:07:58 Social History Question Answer Notes LastModified by [employer] [facility] Details LastModified Time Tobacco Smoking Status Never Smoker Mattie Erickson [facility] 06/01/2018 13:08:45 Marital Status Informatio n [...] ICD10 Code Diagnosis IMO Codes Diagnosis Note [id number] MONSTER IBARRA MD UROLOGY [facility] [address] [address] 06/01/2018 12:25:23 06/02/2018 14:45:17 Increased frequency of urination [id number] R35.0 Urinary tr act infectious disease [id number] N39.0 Cystocele 295891738 N81. 10 [id number] MONSTER IBARRA MD SURGERY SCHEDULE [address] [place] [address] 06/18/2018 10:16:07 06/18/2018 10:23:15 [id number] MONSTER IBARRA MD UROLOGY [facility] [address] [place] [address] 10/12/2018 09:30:48 10/13/2018 13:25:30 Cystocele [id number] N81.10 Health Concerns Section Related Observation LastModified by Organization Detai ls LastModified Time None Recorded Concern Status LastModified by Organization Details LastModified Time None Recorded Advance Directives Directive None Recorded Payers Insurance Date Sequence Insurance Name Policy Number Policy [place] Covered Member ID [place] Member ID Guarantor Name 10/11/2020 1 UMR [id number] Jeniffer Moura [id number] Jeniffer Moura 03/27/2021 PAYMENT PLAN Jeniffer Moura [...] complaints or concerns today. MONSTER IBARRA MD [address] [place] [address] [place], [address], [facility] 06/01/2018 13:39:11 10/12/2018 text/html 58 yo female here today for follow up with possible bladder prolapse. She is s/p normal cysto on 06/18/2018. She has no complaints or concerns today. She denies any dysuria or gross hematuria. MD Philomena JASMINE[address] [place], [address], [facility] 10/12/2018 10:30:05 OBGyn Episode No OBEpisode recorded.
--- NOTE | 2025-11-09 10:34 | CT_ITS ---
FINAL REPORT TECHNIQUE: Thin section axial CT with sagittal reconstruction without contrast This study was performed with techniques to keep radiation doses as low as reasonably achievable, (ALARA). Individualized dose reduction techniques using automated exposure control or adjustment of mA and/or kV according to the patient''s size were employed. CLINICAL HISTORY: fall COMPARISON: None FINDINGS: No fracture is seen. Alignment is normal. No obvious bony spinal canal stenosis is present. Mild diffuse degenerative disc disease. IMPRESSION: No fracture or malalignment Reviewed, Interpreted and Dictated by Cathryn Boone MD Transcribed by Nelly Luna Authenticated and [facility]
--- NOTE | 2025-11-09 10:34 | CT_ITS ---
FINAL REPORT CLINICAL HISTORY: fall COMPARISON: None FINDINGS: CT THORACIC SPINE TECHNIQUE: Thin section axial CT with sagittal and coronal reconstructions This study was performed with techniques to keep radiation doses as low as reasonably achievable, (ALARA). Individualized dose reduction techniques using automated exposure control or adjustment of mA and/or kV according to the patient's size were employed. FINDINGS: No fracture is present. Alignment is normal. No bony canal stenosis is seen. Moderate diffuse degenerative disc disease. IMPRESSION: Negative CT evaluation of the thoracic spine for acute bony injury. Reviewed, Interpreted and Dictated by Cathryn Boone MD Transcribed by Nelly Luna Authenticated and [facility]
--- NOTE | 2025-11-09 10:34 | CT_ITS ---
FINAL REPORT CLINICAL HISTORY: fall COMPARISON: None FINDINGS: CT LUMBAR SPINE TECHNIQUE: Thin section axial CT with sagittal and coronal reconstructions This study was performed with techniques to keep radiation doses as low as reasonably achievable, (ALARA). Individualized dose reduction techniques using automated exposure control or adjustment of mA and/or kV according to the patient's size were employed. FINDINGS: No fracture is present. Alignment is normal. There is moderate diffuse degenerative disc disease, more pronounced at L5-S1 with canal stenosis and neuroforaminal narrowing greater on the left. Incidental note made of gallstones. IMPRESSION: Negative CT evaluation of the lumbar spine for acute bony injury. This study was performed using automated techniques to achieve radiation exposure as low as reasonably achievable Reviewed, Interpreted and Dictated by Cathryn Boone MD Transcribed by Nelly Luna Authenticated and . [facility]
--- NOTE | 2025-11-09 10:34 | XR_ITS ---
FINAL REPORT CLINICAL HISTORY: fall COMPARISON: None FINDINGS: LEFT ELBOW 3 views were obtained. There is no acute fracture or dislocation. There is no joint effusion. The joint spaces are intact. There is no soft tissue abnormality. IMPRESSION: No acute bony abnormality. Reviewed, Interpreted and Dictated by Cathryn Boone MD Transcribed by Nelly Luna Authenticated and [facility]
--- NOTE | 2025-11-09 10:34 | CT_ITS ---
FINAL REPORT TECHNIQUE: Noncontrast exam This study was performed with techniques to keep radiation doses as low as reasonably achievable, (ALARA). Individualized dose reduction techniques using automated exposure control or adjustment of mA and/or kV according to the patient''s size were employed. CLINICAL HISTORY: fall COMPARISON: 03/17/2024 FINDINGS: No abnormal density is seen. Ventricles are normal. There is no hemorrhage. No mass effect is seen. Bone windows show no evidence of fracture. IMPRESSION: No acute findings. Reviewed, Interpreted and Dictated by Cathryn Boone MD Transcribed by Feli Lucio Authenticated and [facility]
--- NOTE | 2025-11-09 10:34 | XR_ITS ---
FINAL REPORT CLINICAL HISTORY: pain from fall COMPARISON: None FINDINGS: Two views of the right femur show no evidence of an acute, displaced fracture or dislocation of the visualized bony architecture. The joint spaces appear normal. IMPRESSION: Unremarkable exam. Reviewed, Interpreted and Dictated by Cathryn Boone MD Transcribed by Nelly Luna Authenticated and [facility]
--- NOTE | 2025-11-09 10:42 | PC.NURSE ---
patient gone to CT at this time.
[2025-11-09] MEDS: ORPHENADRINE CITRATE 60MG/2ML VIAL 30 MG IM (11:13)
[2025-11-09] MEDS: KETOROLAC 30MG/ML VIAL 30 MG IM (11:13)
--- NOTE | 2025-11-09 11:14 | ED_ITS ---
<Statement entered by Willem Crawford MD - 11/09/25 15:18> Willem Crawford MD: I was consulted by the ZHOU, and we discussed the complexity of the problems being addressed. I approve the treatment and management plan for this patient's care in the emergency department, thus performing a substantive portion of the medical decision making. Discharge Plan Disposition Chief Complaint: Fall Prescriptions Prescriptions: No Action isosorbide mononitrate 30 mg tablet extended release 24 hr 15 mg PO DAILY Qty: 30 3RF trazodone 50 mg tablet 50 mg PO HS PRN (Reason: insomnia) Qty: 90 0RF ropinirole 0.25 mg tablet 0.25 mg PO HS famotidine 20 mg tablet 40 mg PO QHS (DME) diabetic supplies, miscellan. Misc See Rx Instructions .Route Qty: 1 0RF Rx Instructions: diabetic shoes with inserts spironolactone 25 mg tablet 25 mg PO DAILY mecobalamin (vitamin B12) 1,000 mcg tablet,chewable 1,000 mcg PO DAILY clopidogrel [Plavix] 75 mg tablet 75 mg PO DAILY Qty: 30 5RF magnesium chloride 64 mg tablet extended release 64 mg PO DAILY benzonatate 100 mg capsule 100 mg PO BID PRN (Reason: cough) 3 Days Qty: 6 0RF cholecalciferol (vitamin D3) 50 mcg (2,000 unit) capsule 50 mcg PO DAILY Qty: 90 3RF atorvastatin 40 mg tablet 40 mg PO HS Qty: 90 3RF metformin 500 mg tablet extended release 24 hr 500 mg PO DAILY Qty: 90 3RF levothyroxine 88 mcg tablet 88 mcg PO QAM Qty: 90 3RF folic acid 1 mg tablet 1 mg PO DAILY Qty: 90 3RF Nurtec ODT 75 mg tablet,disintegrating 75 mg PO ONCE PRN (Reason: Migraine) Qty: 8 5RF Rx Instructions: Max: 1 tablet per 24 hours. hydrochlorothiazide 12.5 mg tablet 12.5 mg PO DAILY Qty: 90 3RF Kerendia 10 mg tablet 10 mg PO DAILY Qty: 30 0RF losartan 50 mg tablet 50 mg PO DAILY Qty: 90 1RF atenolol 25 mg tablet 25 mg PO DAILY Qty: 90 3RF Referrals Follow up/Referrals: Ne Gould APRN [Primary Care Provider, Family Practice] - See instructions Print Language Print Language: Portuguese Discharge ED Provider: Willem Crawford General Adult HPI General Chief complaint: Fall Stated complaint: AO Fall 11/05 back/leg pain Time Seen by Provider: 11/09/25 10:26 Mode of Arrival: Ambulatory Source of Information: Patient Description of Symptoms (Recalled from ER Triage Doc. by RN): pt presents to ED with c/o fall on friday. she was going down a ramp to do something outside. pt reports the fall happened so fast she is unsure of what exactly happened. pt reports pain in left elbow, lower back, right hip, right groin. pt rpeorts that she is unsure if she hit her head, but she did have a headache yesterday History of Present Illness HPI narrative: 65-year-old female presents to the ED today with complaint of fall on Friday. She says she was walking on a ramp that had Ku on it slipped hitting her left elbow, has pain in her right upper leg, her entire back including her neck. She does not know if she hit her head. She is on Plavix. She complains of several areas of pain. We will scan an x-ray to all of these areas. She appears well. She is alert and oriented x 4. She is moving all of her extremities. No nausea, vomiting or diarrhea. Related Data Home Medications ?Medication ?Instructions ?Recorded ?Confirmed mecobalamin (vitamin B12) 1,000 1,000 mcg PO DAILY Sup plement 06/05/21 10/10/25 mcg chewable tablet magnesium chloride 64 mg 64 mg PO DAILY 09/07/2509/18 tablet,extended release famotidine 20 mg tablet 40 mg PO QHS 09/14/25 ropinirole 0.25 mg tablet 0.25 mg PO HS 09/14/2510/10 spironolactone 25 mg tablet 25 mg PO DAILY 10/10/25 Previous Rx's ?Medication ?Instructions ?Recorded atorvastatin 40 mg tablet 40 mg PO HS #90 tabs 5 cholecalciferol (vitamin D3) 50 50 mcg PO DAILY #90 ca ps 12/31/24 mcg (2,000 unit) capsule metformin 500 mg tablet,extended 500 mg PO DAILY #90 t abs 12/31/24 release 24 hr levothyroxine 88 mcg tablet 88 mcg PO QAM #90 tabs folic acid 1 mg tablet 1 mg PO DAILY Supplement #90 tabs 02/27/25 isosorbide mononitrate 30 mg 15 mg (1/2 x 30 mg) PO DA SHU chest 03/22/25 tablet,extended release 24 hr pain #30 tabs trazodone 50 mg tablet 50 mg PO HS PRN insomnia #90 tabs 06/29/25 rimegepant 75 mg disintegrating 75 mg PO ONCE PRN Migr robin #8 tabs 08/01/25 tablet (Nurtec ODT) hydrochlorothiazide 12.5 mg tablet 12.5 mg PO DAILY #9 0 tabs 08/22/25 diabetic supplies, miscellan. #1 ea 09/14/25 finerenone 10 mg tablet (Kerendia) 10 mg PO DAILY #30 tabs 09/15/25 clopidogrel 75 mg tablet (Plavix) 75 mg PO DAILY #30 t abs 09/26/25 benzonatate 100 mg capsule 100 mg PO BID PRN cough 3 d ays #6 10/01/25 caps losartan 50 mg tablet 50 mg PO DAILY #90 tabs 12/11 atenolol 25 mg tablet 25 mg PO DAILY #90 tabs 10/17 Allergies Allergy/AdvReac Type Severity Reaction Status Date / Time dexamethasone (DEXAMETHASONE) Allergy Intermediate Rash Verified 10/10/25 13:10 triamcinolone (From KENALOG) Allergy Intermediate Rash Verified 10/10/25 13:10 [facility] Disclaimer: The information contained in this section may have been updated after the patient was seen, as this information can be updated by other users. Medical History Rash Encounter to establish care Screening for HIV (human immunodeficiency virus) Encounter for hepatitis C screening test for low risk patient CAD (coronary artery disease) BMI 36.0-36.9,adult Pyelonephritis Renal insufficiency Chest pain Right maxillary sinusitis UTI (urinary tract infection) Hypotension Dizziness JATIN (obstructive sleep apnea) Mild JATIN with excellent compliance and symptomatic improvement on CPAP Anemia Hyponatremia Thyroid Nodule Patient was explained that she had a stable nodule that recommends 1 year f/u with labs. History of left heart catheterization GERD (gastroesophageal reflux disease) Restless leg syndrome Migraine Allergies History of chest pain COVID-19 Syncope Vasovagal syncope Sinus bradycardia HLD (hyperlipidemia) Unstable angina Coronary artery disease History of syncope Hypertension Minor head injury without loss of consciousness Cholelithiasis Surgical History History of coronary artery stent placement H/O colonoscopy H/O: hysterectomy History of section Family History Other Coronary artery disease Family history of cancer Family history of diabetes mellitus type II Family history of hypertension Social History Smoking Status: Never smoker second hand exposure: No alcohol intake: never substance use type: denies use current occupational status: retired Travel in the last 8 weeks?: None household members: spouse housing: house 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 current occupational exposures/hazards: No caffeine: Yes Have you lived/traveled outside [place] in past 30 days?: No Contact w/someone who lives/traveled outside [place] past 30 days?: No Exposure to someone with infectious disease in past 14 days?: No Do you have a fever (greater than 100.4 F or 38 C)?: No Have you tested positive for COVID-19?: No Exposed to someone with COVID-19 in past 14 days?: No Do you have a sore throat?: No Do you have a cough?: No Do you have any weakness?: No Do you have any diarrhea?: No Are you experiencing any unusual bleeding?: No Do you have any muscle aches/pain?: No Do you have any abdominal pain?: No Are you experiencing loss of taste or smell?: No Other Medical History Have you received the Flu Vaccine for this season: No Have you received the Pneumonia Vaccine: No ROS Obtained: Yes All systems reviewed & no additional complaints except as documented Physical Exam General General appearance: alert Head Head exam: atraumatic and normocephalic Eye Eye exam: Present PERRL and EOMI ENT ENT exam: Present normal oropharynx and mucous membranes moist Neck Neck exam: Present normal inspection, full ROM, trachea midline and tenderness (On her vertebra) Respiratory Respiratory exam: Present normal lung sounds bilaterally Cardiovascular Cardiovascular exam: Present regular rate, normal rhythm, normal heart sounds, +S1 and +S2 Abdominal Exam Abdominal exam: Present soft and normal bowel sounds Extremities Exam Extremities exam: Present full ROM and normal capillary refill Back Exam Back exam: Present tenderness and vertebral tenderness Neurological Exam Neurological exam: Present alert and oriented X3 Skin Skin exam: Present warm and dry Medical Decision Making Medical Records Screening: Per USPSTF and CDC recommendations, given the prevalence of disease in our region, it is our hospital?s policy to screen for HIV and viral Hepatitis for all patients aged 18 and over and those with ongoing risk factors. Alexi Inquiry Pt receiving controlled substance: No Alexi was queried for this patient: No Vital Signs: 11/09/25 10:27 Temperature 97.9 F Temperature Source Oral Pulse Rate [Left Radial] 68 Respiratory Rate 13 Blood Pressure [Right Arm] 140/45 L Blood Pressure Mean [Right Arm] 76 02 Sat by Pulse Oximetry 96 Orders (Tests/Meds): ED MEDICATIONS Discontinued Medications Generic Name Dose Route Start Last Admin Trade Name Freq PRN Reason Stop Dose Admin Ketorolac Tromethamine 30 mg 11/09/25 10:37 11/09/25 11:13 Ketorolac 30mg/Ml Vial IM 11/09/25 10:38 30 mg ONCE ONE Administration Orphenadrine Citrate 30 mg 11/09/25 10:37 11/09/25 11:13 Orphenadrine Citrate 60mg/2ml Vial IM 11/09/25 10:38 30 mg ONCE ONE Administration ORDERS Category Date Time Status CT cervical spine wo con Stat Cat Scan 11/09/25 10:[address] head/brain wo con Stat Cat Scan 11/09/25 10:[address] lumbar spine wo con Stat Cat Scan 11/09/25 10:[address] thoracic spine wo con Stat Cat Scan 11/09/25 10:34 Completed Elbow XR left mininum 3 views [XR elbow LT min 3V] Stat Exams 11/09/25 10:34 Completed Femur XR right 2 views [XR femur RT 2V] Stat Exams 11/09/25 10:34 Completed Medical Decision Narrative: patient is a 65-year-old female presenting to the emergency department for evaluation of fall. Patient is hemodynamically stable and nontoxic-appearing upon arrival, afebrile. Differential diagnosis includes sprain and strains versus fractures contusions. Workup will be conducted with hematologic labs, specific imaging. Initial inventions include crystalloid bolus, analgesics. No labs were done today as not necessary. Imaging completed today included CT scans of head, neck, entire back and left elbow and right femur. All were read by radiology as negative. See official reports. Patient is safe for discharge home. Critical Care Critical Care Time Critical Care Time: No
[2025-11-09 12:51] VITALS: BP 118/37; PULSE 59; RESP 18; TEMP 36.8; O2SAT 99
== END 2025-11-09 12:51 | disposition home or self-care (01) ==
PROVIDERS: Emergency Provider Student in an Organized Health Care Education/Training Program; PCP Nurse Practitioner Family
DX: M54.2 Cervicalgia (principal); M25.522 Pain in left elbow; M79.604 Pain in right leg; M54.6 Pain in thoracic spine; W00.9XXA Unspecified fall due to ice and snow, initial encounter
CPT/HCPCS: 70450; 72125; 72128; 72131; 73080; 73552; 96372; 99284; 99285; J1885; J2360